=== PATIENT | male | born 1950 | race Caucasian/White ===

== ENCOUNTER → 2016-09-09 | Outpatient (CLI) | payer OTHER ==
[~2016-09-09] MED LIST: ALEN70TA4 PO; ASCO500T3 PO; ASPI81TA28 PO; BUPR-83 PO; BUSP5TAB59 PO; CITA40TA12 PO; FNTTP50 TD; GABA300C19 PO; GDN60 PO; GINK40TA3 PO; HYDROCODONE APAP PO; MAGN400T24 PO; MELO15TA4 PO; METO50TA16 PO; MISC1CAP60 PO; MULT-845 PO; PANT1TAB48 PO; TEMA-79 PO; TRAZ50TA35 PO; WARF-246 PO
[2016-09-09 17:18] LABS: BASO % 0.2 %; BASO ABS # 0.02 K/uL (0-0.2); COMPLETE YES; EOS % 0.9 %; HEMATOCRIT 38.3 % (42-52); IG% 0.2 %; LYMPH % 11.1 %; LYMPH ABS # 1.01 K/uL (1.2-3.4); MEAN CORPUSCULAR HEMOGLOBIN 27.2 pg (25-34); MEAN CORPUSCULAR HGB CONC 32.4 g/dl (32-36); MONO % 7.3 %; NEUT % 80.3 %; PLATELET COUNT 334 K/uL (130-400); RED BLOOD COUNT 4.56 M/uL (4.7-6.1); WHITE BLOOD COUNT 9.14 K/uL (4.8-10.8)
[2016-09-09 19:46] LABS: ALKALINE PHOSPHATASE 111 U/L (45-117); ALT/SGPT 33 U/L (12-78); AST/SGOT 25 U/L (15-37); BLOOD UREA NITROGEN 24 mg/dl (7-18); BUN/CREATININE RATIO 17.3 (10-20); CALCIUM 8.9 mg/dl (8.5-10.1); CARBON DIOXIDE 25 mmol/L (21-32); CHLORIDE 107 mmol/L (98-107); GLUCOSE 91 mg/dl (70-99); POTASSIUM 4.6 mmol/L (3.5-5.1); SODIUM 141 mmol/L (136-145); URIC ACID 4.4 mg/dl (2.6-7.2)
[2016-09-09 20:00] LABS: RHEUMATOID FACTOR < 10.0 U/mL (0-15)
[2016-09-09 21:13] LABS: LYME DISEASE AB IGG NEG (NEG); LYME DISEASE AB IGM NEG (NEG)
--- NOTE | 2016-09-14 10:59 | CODING QUERY MEDICAL NECESSITY ---
SUPPORTING DIAGNOSIS NEEDED A supporting diagnosis is required for the test/procedure performed on this patient in order for us to be reimbursed by the patient's insurance. Please provide a supporting diagnosis for the following test/procedure listed below next to the test name along with your signature. *If there is no additional diagnosis for this patient that would support the following test/procedure please document that below next to the test/procedure. Test(s)/Procedure(s) that require a supporting diagnosis: * VIT D 25 HYDROXY DIAGNOSIS: * DOS: 09/09/16 Provider Signature: Date: Thank you Shannon Jacob [facility] Information Management Once completed, please kindly fax back to [phone] For questions please call [phone]
== END | disposition home or self-care (01) ==
LOC: C.LABPVFM 11:35
PROVIDERS: ATTEND Family Medicine
DX: M12.9 Arthropathy, unspecified (principal); M86.60 Other chronic osteomyelitis, unspecified site; M85.80 Other specified disorders of bone density and structure, unspecified site

== ENCOUNTER → 2016-10-01 | Outpatient (CLI) | payer OTHER ==
--- NOTE | 2016-10-01 16:26 | DIAGNOSTIC IMAGING REPORT ---
CHEST 2 VIEWS ROUTINE CLINICAL HISTORY: R06.02 dyspnea COMPARISON STUDY: 01/23/2015 FINDINGS: Right basilar infiltrate combined with a small right effusion. Lungs otherwise appear clear. No evidence for cardiac enlargement. IMPRESSION: A small right effusion combined with a small right basilar infiltrate. Electronically signed by: Austin Rosales M.D. 10/01/2016 4:25 PM Dictated Date/Time: 10/01/2016 4:24 PM
== END | disposition home or self-care (01) ==
LOC: C.RADPV 15:39
PROVIDERS: ATTEND Internal Medicine Cardiovascular Disease
DX: R06.02 Shortness of breath (principal); J90 Pleural effusion, not elsewhere classified; R91.8 Other nonspecific abnormal finding of lung field

== ENCOUNTER → 2017-09-08 | Outpatient (CLI) | payer OTHER ==
[~2017-09-08] MED LIST changes: +GABA-1218 PO; -GABA300C19 PO; +PANT1TAB3 PO; -PANT1TAB48 PO
--- NOTE | 2017-09-08 09:29 | DIAGNOSTIC IMAGING REPORT ---
CT SCAN OF THE BRAIN WITHOUT IV CONTRAST CLINICAL HISTORY: Post concussion syndrome. COMPARISON STUDY: No priors. TECHNIQUE: Unenhanced axial CT scan of the brain is performed from the vertex to the skull base. A dose lowering technique was utilized adhering to the principles of ALARA. CT DOSE: 690.05 mGycm FINDINGS: Brain parenchyma: There are age-related involutional changes noting mild subcortical and periventricular microangiopathic change. There is no hemorrhage, mass effect, or evidence of acute territorial ischemia by CT criteria. Dorman-white matter is preserved. No extra-axial fluid collection is seen. Ventricles, sulci, cisterns: Prominent secondary to involutional change. Intracranial vasculature: There is atherosclerotic calcification of the cavernous carotid and vertebral arteries. Calvarium: Unremarkable. Sinuses and mastoids: Trace mucosal thickening is seen within the right sphenoid sinus. The remaining visualized paranasal sinuses are clear. There is trace right mastoid effusion. The left mastoid air cells are well pneumatized. Orbits: The bony orbits are grossly intact. IMPRESSION: There is no hemorrhage, mass effect, or evidence of acute territorial ischemia by CT criteria. Electronically signed by: Shade Guerin M.D. 09/08/2017 9:28 AM Dictated Date/Time: 09/08/2017 9:26 AM
== END | disposition home or self-care (01) ==
LOC: C.CTS 09:17
PROVIDERS: ATTEND Family Medicine
DX: F07.81 Postconcussional syndrome (principal)

== ENCOUNTER → 2017-12-14 | Outpatient (CLI) | payer OTHER ==
[~2017-12-14] MED LIST changes: +MELO-84 PO; -MELO15TA4 PO
--- NOTE | 2017-12-14 08:54 | DIAGNOSTIC IMAGING REPORT ---
R TOE(S) MIN 2 VIEWS HISTORY: 67 years-old Male CONTUSION OF TOE, RIGHT acute right third toe pain status post contusion. COMPARISON: None available TECHNIQUE: 3 views of the right third toe FINDINGS: Bones appear mildly demineralized. Mild degenerative changes of the metatarsophalangeal and interphalangeal joints. Mild soft tissue swelling of the third digit. There is a suggested acute nondisplaced transverse fracture of the third middle phalanx with mild cortical offset. No dislocation. There is a 1 mm bone fragment adjacent to the dorsal aspect of the third DIP joint which appears to demonstrate corticated margins. Peripheral vascular disease. IMPRESSION: 1. Mild soft tissue swelling of the third digit with suggested acute nondisplaced fracture of the third middle phalanx. Adjacent 1 mm corticated bone fragment suggests fragmented osteophyte or remote avulsion fracture. 2. Mild degenerative changes. 3. Peripheral vascular disease. The above report was generated using voice recognition software. It may contain grammatical, syntax or spelling errors. Electronically signed by: Kar Ford M.D. 12/14/2017 8:52 AM Dictated Date/Time: 12/14/2017 8:49 AM
== END | disposition home or self-care (01) ==
LOC: C.RADPV 08:31
PROVIDERS: ATTEND Family Medicine
DX: S90.121A Contusion of right lesser toe(s) without damage to nail, initial encounter (principal); X58.XXXA Exposure to other specified factors, initial encounter; M24.074 Loose body in right toe joint(s)

== ENCOUNTER → 2017-12-21 | Outpatient (CLI) | payer OTHER ==
--- NOTE | 2017-12-21 11:22 | DIAGNOSTIC IMAGING REPORT ---
ABDOMINAL ULTRASOUND, RIGHT UPPER QUADRANT HISTORY: R10.813 Abdominal tenderness, RLQ (right lower quadrant). COMPARISON: None. FINDINGS: Pancreas: The pancreatic tail is obscured by overlying bowel gas. The remaining portions of the pancreas are within normal limits. Liver: Unremarkable. Gallbladder: There are suggestion of a 9 mm stone at the neck of the gallbladder. This is nonmobile. Trace sludge within the gallbladder. No gallbladder wall thickening at this time. CBD: 8 mm. Right kidney: No hydronephrosis. A 5 mm stone within the kidney. IMPRESSION: 1. Possible 9 mm stone at the neck of the gallbladder. This may be impacted. Follow-up nuclear medicine HIDA scan can be used for further evaluation to exclude a developing acute cholecystitis. No gallbladder wall thickening at this time. 2. Right-sided nephrolithiasis. No hydronephrosis. 3. The common bile duct measures up to 8 mm which is abnormal. Electronically signed by: Krzysztof Tang M.D. 12/21/2017 11:21 AM Dictated Date/Time: 12/21/2017 11:17 AM
== END | disposition home or self-care (01) ==
LOC: C.ULTR 10:28
PROVIDERS: ATTEND Family Medicine
DX: R10.813 Right lower quadrant abdominal tenderness (principal); N20.0 Calculus of kidney

== ENCOUNTER 2019-07-03 07:12 | Inpatient (IN) ==
--- NOTE | 2019-06-13 08:44 | PAT Medication Instructions ---
Medication Instructions Date of Service June 13, 2019 Home Medications Medication Instructions Recorded sucralfate [Carafate] 1 gm PO ACHS #40 tab 01/25/19 alendronate 70 mg PO WK ascorbic acid (vitamin C) [Vitamin C] 500 mg PO DAILY bupropion HCl 100 mg PO QAM buspirone 5 mg PO TID calcium carbonate [Calcium 500] 500 mg PO QPM citalopram 40 mg PO QAM gabapentin 400 mg PO TID hydrocodone-acetaminophen 1 tab PO TID magnesium oxide 400 mg PO QPM pantoprazole 40 mg PO HS saw palmetto 1,000 mg PO QAM sulfamethoxazole-trimethoprim [Bactrim DS] 1 tab PO Q12H tamsulosin [Flomax] 0.4 mg PO QPM trazodone 50 mg PO HS ziprasidone HCl 80 mg PO BID sucralfate [Carafate] 1 gm PO ACHS cyanocobalamin (vitamin B-12) [Vitamin B-12] 2,500 mcg SUBLINGUAL DAILY Glaucoma Eye Drops 1 drp OPB UD aspirin [Aspirin Low Dose] 81 mg PO HS chlorzoxazone 1 tab PO TID Continue as directed alendronate 70 mg PO WK sulfamethoxazole-trimethoprim [Bactrim DS] 1 tab PO Q12H Glaucoma Eye Drops 1 drp OPB UD ASK your prescriber and surgeon aspirin [Aspirin Low Dose] 81 mg PO HS STOP taking 2 weeks before surgery (or as soon as possible if surgery is within 2 weeks) saw palmetto 1,000 mg PO QAM DO NOT take the morning of surgery ascorbic acid (vitamin C) [Vitamin C] 500 mg PO DAILY sucralfate [Carafate] 1 gm PO ACHS cyanocobalamin (vitamin B-12) [Vitamin B-12] 2,500 mcg SUBLINGUAL DAILY chlorzoxazone 1 tab PO TID Take morning of surgery With a small sip of water, OTHERWISE NOTHING TO EAT OR DRINK AFTER MIDNIGHT: bupropion HCl 100 mg PO QAM buspirone 5 mg PO TID citalopram 40 mg PO QAM gabapentin 400 mg PO TID hydrocodone-acetaminophen 1 tab PO TID (okay to take up to 4 hours prior to surgery if needed) ziprasidone HCl 80 mg PO BID Take evening before surgery buspirone 5 mg PO TID calcium carbonate [Calcium 500] 500 mg PO QPM gabapentin 400 mg PO TID hydrocodone-acetaminophen 1 tab PO TID magnesium oxide 400 mg PO QPM pantoprazole 40 mg PO HS tamsulosin [Flomax] 0.4 mg PO QPM trazodone 50 mg PO HS ziprasidone HCl 80 mg PO BID sucralfate [Carafate] 1 gm PO ACHS chlorzoxazone 1 tab PO TID Other Notes If you have any questions please call us at [phone] or [phone] or [phone] or [phone]
--- NOTE | 2019-06-13 10:30 | Anesthesiology Consultation ---
Date of Service June 13, 2019 Assessment & Plan (1) Encounter for pre-operative examination: Chart Review Chart Review: Pending: Refer to Additional Notes / Consult section (pending preop testing (labs, EKG, CXR)) and Patient seen in Pre Admission Testing Teaching & Discussion Pre-Anesthesia Teaching/Discussion Notes: Instructed NPO after midnight before surgery,except medications with 15 cc of water. Medication instructions provid ed according to the PAT guidelines. History Surgery Operation Date: 07/03/19 07:15 Proposed Procedures p Left Reverse Total Shoulder Arthroplasty - Yoel Ding DO Height/Weight Height: 6 ft Weight: 78.9 kg Allergies Allergy/AdvReac Type Severity Reaction Status Date / Time No Known Allergies Allergy Unknown Verified 06/13/19 07:10 Medications Home Medications Medication Instructions Recorded Confirmed Last Taken alendronate 70 mg PO WK 01/10/19 06/13/19 01/24/19 ascorbic acid (vitamin C) [Vitamin 500 mg PO DAILY 01/10/19 06/13/19 02/17/19 C] bupropion HCl 100 mg PO QAM 01/10/19 06/13/19 02/17/19 buspirone 5 mg PO TID 01/10/19 06/13/19 02/17/19 calcium carbonate [Calcium 500] 500 mg PO QPM 01/10/19 06/13/19 02/16/19 citalopram 40 mg PO QAM 01/10/19 06/13/19 02/17/19 gabapentin 400 mg PO TID 01/10/19 06/13/19 02/17/19 hydrocodone-acetaminophen 1 tab PO TID 01/10/19 06/13/19 02/17/19 magnesium oxide 400 mg PO QPM 01/10/19 06/13/19 02/16/19 pantoprazole 40 mg PO HS 01/10/19 06/13/19 02/16/19 saw palmetto 1,000 mg PO QAM 01/10/19 06/13/19 02/17/19 sulfamethoxazole-trimethoprim 1 tab PO Q12H 01/10/19 06/13/19 02/17/19 [Bactrim DS] tamsulosin [Flomax] 0.4 mg PO QPM 01/10/19 06/13/19 02/16/19 trazodone 50 mg PO HS 01/10/19 06/13/19 02/16/19 ziprasidone HCl 80 mg PO BID 01/10/19 06/13/19 02/17/19 sucralfate [Carafate] 1 gm PO ACHS #40 tab 01/25/19 06/13/19 02/16/19 cyanocobalamin (vitamin B-12) 2,500 mcg SUBLINGUAL DAILY 02/17/19 06/13/19 Unknown [Vitamin B-12] aspirin [Aspirin Low Dose] 81 mg PO HS 06/13/19 06/13/19 Unknown brimonidine 1 drp OPHTHALMIC (EYE) TID 06/13/19 06/13/19 Unknown chlorzoxazone 750 mg PO TID 06/13/19 06/13/19 Unknown dorzolamide 1 drp OPHTHALMIC (EYE) TID 06/13/19 06/13/19 Unknown latanoprost 1 drp OPHTHALMIC (EYE) PM 06/13/19 06/13/19 Unknown Past Medical History Medical History Anxiety Chronic back pain Depression GERD (gastroesophageal reflux disease) controlled Glaucoma Hearing deficit hearing aid (left) History of blood transfusion post-op (2009) Hx MRSA infection left hip ~2009- on Bactrim BID as preventative maintenance (OR/infection c ontrol made aware) Hyperlipidemia Hypertension hx per patient Leg length discrepancy RLE > LLE s/p multiple left hip revisions (per patient, missing hip joint) due to complications from hip surgery/revisions/MRSA infection- on chronic preventative Bactrim-- uses shoe with elevated heel/crutches Osteoarthritis Peptic ulcer disease 12/2018 Restless leg syndrome Transient ischemic attack (TIA) x1 (~2014) Exercise / Class Metabolic Activity III < 4 Walking/Shop/Light housework (uses crutches for ambulation) Past Family History Family History Other No pertinent family history Past Surgical History Surgical History History of total hip replacement H/O eye surgery DRAINAGE TUBES RT/LEFT EYE FOR GLAUCOMA History of adenoidectomy History of cataract surgery right History of colonoscopy History of esophagogastroduodenoscopy (EGD) History of hip surgery LEFT HIP SURGERY/REVISIONS (TOTAL OF 9 SURGERIES) History of laminectomy L3-L5 laminectomy: 05/12/15: Grade view 1, MAC#3, ETT 8.0 (atraumatic DL x 1) at [facility] History of tonsillectomy History of tooth extraction Past Anesthesia History No Hx of Anesthesia Complications and No Family Hx of Anesthesia Complications History of PONV No Hx of PONV and No Hx of Motion Sickness Social History Smoking Status: Never smoker tobacco type: cigarettes and smokeless tobacco Do You Dip or Chew Tobacco: No (Quit 12/2018) Smoking End Date: Quit 1999; hx 1.5PPD x 18 years Hx Alcohol Use: Yes Alcohol type: beer alcohol intake frequency: a few times a month Hx Substance Use: No (hx medical marijuana card-does not currently use, last use 1 yr ago) substance use type: does not use Review of Systems Reflux controlled. Patient denies chest pain, shortness of breath, cough, wheezing, palpitations. Physical Exam Vital Signs VITALS BP 118/79 P 62 TEMP 97.7 SP02 96%RA RESP 18 PHYSICAL Full neck and c-spine range of motion. Full TMJ range of motion. TMD 3 finger breaths Mallampati Score 3 Dentition: full dentures upper/lower; edentulous Lungs: faint lower lung base crackles Cardiac: regular rate and rhythm, no murmurs noted Carotid arteries: negative bruit Extremities: no edema Trimmed frazier Testing Echocardiogram Date: 09/29/14 EF >70%. Mild AV sclerosis. Normal LV size, thickness and systolic function. No significant LAD.
--- NOTE | 2019-06-13 11:23 | XRay Report ---
XR chest Pre-admission PA/Lat CLINICAL HISTORY: 68 years-old Male presenting with preoperative evaluation. TECHNIQUE: PA and lateral views of the chest were obtained. COMPARISON: 01/05/2019. FINDINGS: Cardiomediastinal silhouette normal. Resolution of prior right pleural effusion. Lungs and pleural sp aces now clear. Degenerative changes of the thoracic spine. Upper abdomen normal. IMPRESSION: 1. No acute cardiopulmonary disease. Electronically signed by: Jose Ramon Villatoro M.D. 06/13/2019 11:21 AM
[2019-06-13 12:32] LABS: Partial Thromboplastin Ratio 1.1; Partial Thromboplastin Time 30.5 Seconds (21.0-31.0); Prothrombin Time 10.3 Seconds (9.0-12.0)
--- NOTE | 2019-07-02 20:06 | History & Physical Report ---
Date of Service July 02, 2019 Assessment & Plan (1) Rotator cuff arthropathy of left shoulder: We will proceed with a left reverse shoulder arthroplasty. Postoperatively he will be placed in a sling and kept overnight for postoperative medical management. He plans to use energy physical therapy upon discharge. Present on Admission?: Yes History of Present Illness Chief Complaint: Rotator cuff arthropathy of the left shoulder Primary Care Provider: Shruthi Michelle MD Brennan is a pleasant 68-year-old male who is been dealing with chronic increasing left shoulder pain. The pain has become unbearable. MRI of his shoulder shows a chronic retracted rotator cuff tear. He does ambulate with a crutch. I have attempted numerous injections in the shoulder. Unfortunately injections no longer help. He cannot live with the shoulder the way it is. After failing extensive conservative treatment, and after discussions in the office, he has elected proceed with a left reverse shoulder arthroplasty. Allergies Allergy/AdvReac Type Severity Reaction Status Date / Time No Known Allergies Allergy Unknown Verified 06/22/19 13:37 Home Medications Home Medications Medication Instructions Recorded Confirmed Type alendronate 70 mg PO WK 01/10/19 07/02/19 History ascorbic acid (vitamin C) [Vitamin 500 mg PO DAILY 01/10/19 07/02/19 History C] bupropion HCl 100 mg PO QAM 01/10/19 07/02/19 History buspirone 5 mg PO TID 01/10/19 07/02/19 History calcium carbonate [Calcium 500] 500 mg PO QPM 01/10/19 07/02/19 History citalopram 40 mg PO QAM 01/10/19 07/02/19 History gabapentin 400 mg PO TID 01/10/19 07/02/19 History hydrocodone-acetaminophen 1 tab PO TID PRN 01/10/19 07/02/19 History magnesium oxide 400 mg PO QPM 01/10/19 07/02/19 History pantoprazole 40 mg PO HS 01/10/19 07/02/19 History saw palmetto 1,000 mg PO QAM 01/10/19 07/02/19 History sulfamethoxazole-trimethoprim 1 tab PO Q12H 01/10/19 07/02/19 History [Bactrim DS] tamsulosin [Flomax] 0.4 mg PO QPM 01/10/19 07/02/19 History trazodone 50 mg PO HS 01/10/19 07/02/19 History ziprasidone HCl 80 mg PO BID 01/10/19 07/02/19 History sucralfate [Carafate] 1 gm PO ACHS #40 tab 01/25/19 07/02/19 Rx cyanocobalamin (vitamin B-12) 2,500 mcg SUBLINGUAL DAILY 02/17/19 07/02/19 History [Vitamin B-12] aspirin [Aspirin Low Dose] 81 mg PO HS 06/13/19 07/02/19 History brimonidine 1 drp OPHTHALMIC (EYE) TID 06/13/19 07/02/19 History chlorzoxazone 750 mg PO TID 06/13/19 07/02/19 History dorzolamide 1 drp OPHTHALMIC (EYE) TID 06/13/19 07/02/19 History latanoprost 1 drp OPHTHALMIC (EYE) PM 06/13/19 07/02/19 History ferrous sulfate [Iron (ferrous 325 mg PO BID 06/14/19 07/02/19 History sulfate)] erythromycin 1 appln OP Q6H 14 Days #3.5 gm 06/26/19 07/02/19 Rx Past Med/Surg History Medical History Anxiety Chronic back pain Depression GERD (gastroesophageal reflux disease) controlled Glaucoma Hearing deficit hearing aid (left) History of blood transfusion post-op (2009) Hx MRSA infection left hip ~2009- on Bactrim BID as preventative maintenance (OR/infection control made aware) Hyperlipidemia Hypertension hx per patient Leg length discrepancy RLE > LLE s/p multiple left hip revisions (per patient, missing hip joint) due to complications from hip surgery/revisions/MRSA infection- on chronic preventative Bactrim-- uses shoe with elevated heel/crutches Osteoarthritis Peptic ulcer disease 12/2018 Restless leg syndrome Transient ischemic attack (TIA) x1 (~2014) Surgical History History of total hip replacement H/O eye surgery DRAINAGE TUBES RT/LEFT EYE FOR GLAUCOMA History of adenoidectomy History of cataract surgery right History of colonoscopy History of esophagogastroduodenoscopy (EGD) History of hip surgery LEFT HIP SURGERY/REVISIONS (TOTAL OF 9 SURGERIES) History of laminectomy L3-L5 laminectomy: 05/12/15: Grade view 1, MAC#3, ETT 8.0 (atraumatic DL x 1) at [facility] History of tonsillectomy History of tooth extraction Family History Other No pertinent family history Social History Preferred Language: Icelandic Communication Ability: Effective Clinical Admissions Manager Required: No Beliefs That Will Affect Care: None Current Living Situation: Spouse Feels Safe at Home: Yes Smoking Status: Never smoker Tobacco Type: cigarettes and smokeless tobacco ; Second Hand Exposure: No ; Hx Alcohol Use: Yes Alcohol type: beer Hx Substance Use: No (hx medical marijuana card-does not currently use, last use 1 yr ago) Review of Systems All systems reviewed & are unremarkable except as noted in HPI & below Physical Exam Constitutional: WD/WN, vitals as above Eyes: PERRL, conjunctivae normal, anicteric sclerae ENMT: external ear and nose normal, oropharynx normal Neck: trachea midline, no thyromegaly Respiratory: normal respiratory effort Cardiovascular: RRR, no murmur, no edema Gastrointestinal (Abdomen): normal bowel sounds, soft, nontender, no hepatosplenomegaly Musculoskeletal: Physical examination of the left shoulder reveals decreased range of motion and significant weakness. There is tenderness palpation along the anterior glenohumeral joint line. The right upper extremity is neurovascularly intact. Psychiatric: A+Ox3, euthymic affect Results & Data Diagnostic Findings Radiographs of the left shoulder show some signs of osteoarthritis with blunting of the greater tuberosity and some superior migration of the humeral head on the glenoid.
[~2019-07-03 07:12] MED LIST changes: +ACETAMINOPHEN 500 MG TAB PO SCH; -ALEN70TA4 PO; -ASCO500T3 PO; -ASPI81TA28 PO; +BUPIVACAINE 0.5 % 5 MG/1 ML PF 10ML VIAL ONE; -BUPR-83 PO; -BUSP5TAB59 PO; +CEFAZOLIN 2000MG 2,000 MG/15 ML SYR IV SCH; -CITA40TA12 PO; +FAMOTIDINE 20 MG TAB PO SCH; -FNTTP50 TD; -GABA-1218 PO; +GABAPENTIN 300 MG CAP PO SCH; -GDN60 PO; -GINK40TA3 PO; -HYDROCODONE APAP PO; +LR 15ML/HR IV SCH; +LR 60ML/HR IV SCH; -MAGN400T24 PO; -MELO-84 PO; -METO50TA16 PO; -MISC1CAP60 PO; -MULT-845 PO; -PANT1TAB3 PO; +ROPIVACAINE 0.5% HCL/PF 150 MG, BUPIVACAINE 0.5% MPF 30 ML, EPINEPHrine 30MG/30ML (OR U... INSTIL SCH; -TEMA-79 PO; +TRANEXAMIC ACID 1,000 MG **IV Intra-op IV SCH; +TRANEXAMIC ACID 1,000 MG **IV Pre-op IV SCH; -TRAZ50TA35 PO; -WARF-246 PO
[2019-07-03] MEDS ORDERED: GLYCOPYRROLATE 0.2 MG/ML VIAL ONE ×2 (08:28→11:29)
[2019-07-03] MEDS ORDERED: MIDAZOLAM HCL 1 MG/ML 2ML VIAL ONE (08:28)
[2019-07-03] MEDS ORDERED: PROPOFOL IV EMULSION 10 MG/ML 20 ML VIAL IV ONE (08:28)
[2019-07-03] MEDS ORDERED: ROCURONIUM BROMIDE 10 MG/ML 5 ML VIAL ONE (08:28)
[2019-07-03] MEDS ORDERED: ONDANSETRON INJ 2 MG/ML 2 ML VIAL ONE (08:28)
[2019-07-03] MEDS ORDERED: fentaNYL citrate 100 MCG/2 ML VIAL ONE (08:28)
[2019-07-03] MEDS ORDERED: NEOSTIGMINE METHYLSULFATE 5 MG/5 ML SYR ONE (08:28)
[2019-07-03] MEDS ORDERED: LIDOCAINE HCL 2% 2 ML VIAL/AMP(20MG/ML) INFIL ONE (08:28)
--- NOTE | 2019-07-03 08:47 | Anesthesiology Consultation ---
Date of Service July 03, 2019 Assessment & Plan Chart Review Chart Review: Acceptable Risk for Surgery Consults Requested none History Surgery Operation Date: 07/03/19 09:25 Proposed Procedures p Left Reverse Total Shoulder Arthroplasty - Yoel Ding DO Height/Weight Height: 6 ft Weight: 79.832 kg Allergies Allergy/AdvReac Type Severity Reaction Status Date / Time No Known Allergies Allergy Unknown Verified 07/03/19 07:49 Medications Home Medications Medication Instructions Recorded Confirmed Last Taken alendronate 70 mg PO WK 01/10/19 07/03/19 07/02/19 ascorbic acid (vitamin C) [Vitamin 500 mg PO DAILY 01/10/19 07/03/19 07/03/19 03:00 C] bupropion HCl 100 mg PO QAM 01/10/19 07/03/19 07/03/19 03:00 buspirone 5 mg PO TID 01/10/19 07/03/19 07/03/19 03:00 calcium carbonate [Calcium 500] 500 mg PO QPM 01/10/19 07/03/19 07/02/19 23:45 citalopram 40 mg PO QAM 01/10/19 07/03/19 07/03/19 03:00 gabapentin 400 mg PO BID 01/10/19 07/03/19 07/02/19 16:00 hydrocodone-acetaminophen 1 tab PO TID PRN 01/10/19 07/03/19 07/03/19 03:00 magnesium oxide 400 mg PO QPM 01/10/19 07/03/19 07/02/19 23:45 pantoprazole 40 mg PO HS 01/10/19 07/03/19 07/02/19 23:45 saw palmetto 1,000 mg PO QAM 01/10/19 07/03/19 07/03/19 03:00 sulfamethoxazole-trimethoprim 1 tab PO Q12H 01/10/19 07/03/19 07/03/19 03:00 [Bactrim DS] tamsulosin [Flomax] 0.4 mg PO QPM 01/10/19 07/03/19 07/02/19 23:45 trazodone 50 mg PO HS 01/10/19 07/03/19 07/02/19 23:45 ziprasidone HCl 80 mg PO BID 0507/03/19 07/03/19 03:00 cyanocobalamin (vitamin B-12) 2,500 mcg SUBLINGUAL DAILY 02/17/19 07/03/19 07/02/19 [Vitamin B-12] aspirin [Aspirin Low Dose] 81 mg PO HS 06/13/19 07/03/19 07/02/19 23:45 brimonidine 1 drp OPHTHALMIC (EYE) TID 06/13/19 07/03/19 07/03/19 03:00 chlorzoxazone 750 mg PO TID 06/13/19 07/03/19 07/03/19 03:00 dorzolamide 1 drp OPHTHALMIC (EYE) TID 06/13/19 07/03/19 07/03/19 03:00 latanoprost 1 drp OPHTHALMIC (EYE) PM 06/13/19 07/03/19 07/02/19 23:45 ferrous sulfate [Iron (ferrous 325 mg PO BID 06/14/19 07/03/19 07/03/19 03:00 sulfate)] erythromycin 1 appln OP Q6H 14 Days #3.5 gm 06/26/19 07/03/19 07/03/19 sucralfate [Carafate] 1 gm PO HS 07/03/19 07/03/19 07/02/19 23:45 Active Medications Generic Name Dose Route Start Last Admin Trade Name Freq PRN Reason Stop Dose Admin Acetaminophen 1,000 mg 07/03/19 06:00 07/03/19 08:29 Tylenol PO 07/03/19 18:00 1,000 mg PREOP GUILLERMO Administration Famotidine 20 mg 07/03/19 06:00 07/03/19 08:29 Pepcid PO 07/03/19 18:00 20 mg PREOP GUILLERMO Administration Gabapentin 300 mg 07/03/19 06:00 07/03/19 08:29 Neurontin PO 07/03/19 18:00 300 mg PREOP GUILLERMO Administration Lactated Ringer's 1,000 mls @ 15 mls/hr 07/03/19 06:00 07/03/19 08:23 Lr IV 07/04/19 05:59 15 mls/hr .Q24H GUILLERMO Administration Lactated Ringer's 1,000 mls @ 60 mls/hr 07/03/19 06:00 07/03/19 08:24 Lr IV 07/03/19 22:39 Not Given .[id number] GUILLERMO NPO Date Last Intake of Fluids: 07/02/19 Time Last Intake of Fluids: 23:45 Last Intake of Fluids Comment: sip of water today at 0300 with pills Date Last Intake of Solids: 07/02/19 Time Last Intake of Solids: 18:00 Past Medical History Medical History Hearing deficit hearing aid (left) Hx MRSA infection left hip ~2009- on Bactrim BID as preventative maintenance (OR/infection control made aware) Peptic ulcer disease 12/2018 Anxiety Chronic back pain Depression GERD (gastroesophageal reflux disease) controlled Glaucoma History of blood transfusion post-op (2009) Hyperlipidemia Hypertension hx per patient Leg length discrepancy RLE > LLE s/p multiple left hip revisions (per patient, missing hip joint) due to complications from hip surgery/revisions/MRSA infection- on chronic preventative Bactrim-- uses shoe with elevated heel/crutches Osteoarthritis Restless leg syndrome Transient ischemic attack (TIA) x1 (~2014) Past Family History Family History Other No pertinent family history Past Surgical History Surgical History History of total hip replacement History of cataract surgery right History of esophagogastroduodenoscopy (EGD) H/O eye surgery DRAINAGE TUBES RT/LEFT EYE FOR GLAUCOMA History of adenoidectomy History of colonoscopy History of hip surgery LEFT HIP SURGERY/REVISIONS (TOTAL OF 9 SURGERIES) History of laminectomy L3-L5 laminectomy: 05/12/15: Grade view 1, MAC#3, ETT 8.0 (atraumatic DL x 1) at [facility] History of tonsillectomy History of tooth extraction Social History Smoking Status: Never smoker tobacco type: cigarettes and smokeless tobacco Do You Dip or Chew Tobacco: No (Quit 12/2018) Smoking End Date: Quit 1999; hx 1.5PPD x 18 years Hx Alcohol Use: Yes Alcohol type: beer alcohol intake frequency: a few times a month Hx Substance Use: No (hx medical marijuana card-does not currently use, last use 1 yr ago) substance use type: does not use Physical Exam Vital Signs Last Vital Signs Temp 36.8 C 07/03/19 07:35 Pulse 60 07/03/19 07:35 Resp 18 07/03/19 07:35 BP 99/63 L 07/03/19 07:35 Pulse Ox 96 07/03/19 07:35 Testing Laboratory Results PT 10.3 Seconds (9.0-12.0) 06/13/19 10:49 INR 1.0 (0.9-1.1) 06/13/19 10:49 APTT 30.5 Seconds (21.0-31.0) 06/13/19 10:49 Blood Type O Positive 06/13/19 10:49 Antibody Screen NEGATIVE 06/13/19 10:49
[2019-07-03] MEDS ORDERED: HYDROmorphone INJ 2 MG/ML SYR/VIAL IV PRN (08:48)
[2019-07-03] MEDS ORDERED: METOCLOPRAMIDE HCL INJ 5 MG/ML 2 ML VIAL IV PRN ×2 (08:48→12:51)
[2019-07-03] MEDS ORDERED: ATROPINE SULFATE 0.1 MG/ML 10ML SYR IV PRN (08:48)
[2019-07-03] MEDS ORDERED: fentaNYL citrate 100 MCG/2 ML VIAL IV PRN (08:48)
[2019-07-03] MEDS ORDERED: PROMETHAZINE HCL 12.5 MG in SODIUM CHLORIDE 0.9% 50 ML IV PRN (08:48)
[2019-07-03] MEDS ORDERED: ONDANSETRON INJ 2 MG/ML 2 ML VIAL IV PRN ×2 (08:48→12:51)
[2019-07-03] MEDS ORDERED: DEXAMETHASONE SOD INJ 4 MG/ML VIAL IV PRN (08:48)
[2019-07-03] MEDS ORDERED: ePHEDrine sulfate 50 MG/ML AMP IV PRN (08:48)
--- NOTE | 2019-07-03 08:48 | History & Physical Bridge Note ---
Date of Service July 03, 2019 History & Physical Bridge Note I have examined the patient, reviewed the History & Physical and in the interval since the performance of the History & Physical I have noted the following changes of clinical significance: no changes noted
[2019-07-03] MEDS ORDERED: ORTHO JOINT ANESTHETIC ONE (09:25)
[2019-07-03] MEDS ORDERED: DEXAMETHASONE SOD INJ 4 MG/ML VIAL ONE (11:08)
--- NOTE | 2019-07-03 11:19 | Operative Report ---
Post Operative Report Pre & Post Diagnosis Operation Date: 07/03/19 09:25 Pre-Op Diagnosis: Left Shoulder rotator cuff arthropathy Post-Op Diagnosis: Left Shoulder rotator cuff arthropathy I identified the patient and participated in the time-out.: Yes Procedure Operation Date: 07/03/19 09:25 Actual Procedures p Left Reverse Total Shoulder Arthroplasty(Left) - Yoel Ding DO Surgeon Yoel Ding DO Toolmaker Yoel Reyes PAC Estimated Blood Loss 100 Findings Consistent with Post-Op Diagnosis Specimens Left humeral head Complications none Disposition Disposition: Recovery Room Indications Brennan is a pleasant 68-year-old male who is been dealing with chronic increasing left shoulder pain. MRI and clinical examination were diagnostic for chronic retracted rotator cuff tear and cartilage delamination on the humeral head. After failing conservative treatment, he elected to proceed with a left reverse shoulder arthroplasty. Description of Procedure Implants used: I used a [employer] Comprehensive reverse total shoulder arthroplasty system with a size 16 press fit mini humeral stem, a standard humeral tray and a standard humeral bearing, a 28 mm baseplate with a 6.5 mm central screw and superior and inferior locking screws, and a size 40 mm eccentric glenosphere. The patient arrived at [facility] for the above procedure. There were seen in the preoperative holding area and the operative extremity was identified and signed. They were given a preoperative antibiotic and an interscalene nerve block. They were taken back to the operating room, laid on table in supine position, and put under general anesthesia. They were then put into the beachchair position. The shoulder was then prepped and draped in sterile fashion. A timeout was done and the patient and the operative extremity was properly identified. A deltopectoral approach was used. Dissection was taken down through the fascia and the deltoid was retracted laterally and the conjoined tendon was retracted medially. The anterior shoulder was exposed. The long head of the biceps tendon was tenodesed to the upper border of the pectoralis major. The subscapularis was then released off the lesser tuberosity with a centimeter of cuff tissue remaining. The inferior capsule was released and the humeral head was dislocated. A canal finding reamer was sent down the center of the humeral canal. Sequential reaming up to a size 16 reamer was done. Off that reamer, a proximal humeral resection guide was placed. The proximal humerus was resected at 135 of inclination and 25 of retroversion. Osteophytes were then removed and the glenoid was exposed. Time was spent doing a complete capsular and labral release. The glenoid guide was then placed in the inferior aspect of the glenoid. A 3.2 mm Steinmann pin was then placed into the glenoid vault at 10 of inclination. The glenoid baseplate was then reamed. The final size 28 mm baseplate was then impacted in the place. A 6.5 mm central screw was then placed followed by superior and inferior locking screws. A 36 mm eccentric glenoid sphere was then impacted into place. Surrounding soft tissues were then injected with 100 cc an orthopedic pain control cocktail. The proximal humerus was then exposed. Sequential broaching of the humerus up to a size 16 broach was done. Off that broach a standard humeral tray was trialed. The shoulder was then reduced, brought through a full range of motion and felt to be stable. The shoulder was then dislocated and the broach was removed. The final size 16 mini press-fit humeral stem was then impacted into place. A standard humeral bearing was then snapped onto a standard humeral tray and the ring-lock mechanism was engaged. The humeral tray was then impacted onto the humeral stem. The shoulder was once again reduced, brought through a full range of motion and felt to be stable. The subscapularis was then tenodesed back to the lesser tuberosity with transosseous FiberWire sutures and side to side sutures with the arm in 45 of external rotation. A dilute betadyne lavage was then done for 3 minutes. The joint was then irrigated with normal saline solution. Hemostasis was obtained. The skin was then closed with 2-0 Vicryl, 3-0V lock suture, and babatunde. A soft dressing and a regular arm sling was placed. The patient was then extubated and transferred to a hospital bed. They were taken to the postanesthesia care unit in stable condition. They tolerated the procedure well. I attest to the content of the Intraoperative Record and any orders documented therein. Any exceptions are noted below.
--- NOTE | 2019-07-03 12:22 | XRay Report ---
XR shoulder LT min 2V routine CLINICAL HISTORY: Post shoulder surgery COMPARISON: None. DISCUSSION: There are postsurgical changes of a reverse total left shoulder arthroplasty. There is ga s in the soft tissues consistent with surgery. There are overlying skin babatunde. There is no dislocat ion. IMPRESSION: Postsurgical changes of a reverse total left shoulder arthroplasty. Electronically signed by: Claudio Benitez M.D. 07/03/2019 12:21 PM
--- NOTE | 2019-07-03 12:32 | Anesthesiology Progress Note ---
Date of Service July 03, 2019 Anesthesia Post Procedure Vital Signs Vital Signs: Temp Pulse Pulse Resp BP Pulse Ox 07/03/19 12:20 57 L 16 108/64 98 07/03/19 12:10 61 18 109/63 99 07/03/19 12:00 62 19 107/66 99 07/03/19 11:52 36.2 C L 63 19 99/53 L 100 07/03/19 07:35 36.8 C 60 18 99/63 L 96 Pain Intensity Left Shoulder: Pain Intensity: 0 Transfer of Care Handoff Completed per policy Notes Mental Status: alert / awake / arousable and participated in evaluation Patient Amnestic to Procedure: Yes Nausea / Vomiting: adequately controlled Pain: adequately controlled Airway Patency, RR, SpO2: stable & adequate BP & HR: stable & adequate Hydration State: stable & adequate Anesthetic Complications: no major complications apparent
[2019-07-03] MEDS ORDERED: BISACODYL 10 MG SUPP PR PRN (12:51)
[2019-07-03] MEDS ORDERED: MAGNESIUM HYDROXIDE SUSP 30 ML UDC PO PRN (12:51)
[2019-07-03] MEDS ORDERED: HYDROmorphone INJ 0.5 MG/0.5 ML SYR IV PRN (12:51)
[2019-07-03] MEDS ORDERED: NALOXONE HCL 0.4 MG/1 ML VIAL/CARP IV PRN (12:51)
[2019-07-03] MEDS ORDERED: ERYTHROMYCIN OP OINT 1 GM PKT OP SCH (14:00)
[2019-07-03] MEDS ORDERED: BRIMONIDINE 0.1% OP SCH (14:00)
[2019-07-03] MEDS ORDERED: CHLORZOXAZONE 500 MG TAB PO SCH (14:00)
[2019-07-03] MEDS: KETOROLAC TROMETHAMINE 15 MG/ML VIAL IV SCH ×2 (14:20→19:10)
[2019-07-03] MEDS: ACETAMINOPHEN 500 MG TAB PO SCH ×2 (14:20→21:55)
[2019-07-03] MEDS: DORZOLAMIDE HCL 2% OPH SOLN 10 ML BTL OP SCH ×2 (14:24→21:59)
[2019-07-03] MEDS ORDERED: INFLUENZA VACCINE HIGH DOSE 65+ 0.5 ML SYR IM ONE (15:00)
[2019-07-03] MEDS ORDERED: INFLUENZA ADMINISTRATION CHARGE ONE (15:00)
[2019-07-03] MEDS: CEFAZOLIN 2000MG 2,000 MG/15 ML SYR IV SCH (19:11)
[2019-07-03] MEDS: SODIUM CHLORIDE 0.9% 1000ML 1,000 ML IV SCH (19:11)
[2019-07-03] MEDS: OXYCODONE HCL IR 5 MG TAB (IMMEDIATE RELEASE) PO PRN (19:11)
[2019-07-03] MEDS ORDERED: SENNA 8.6 MG TAB PO SCH (21:00)
[2019-07-03] MEDS ORDERED: PANTOprazole 40 MG TAB PO SCH (21:00)
[2019-07-03] MEDS ORDERED: PNEUMOCOCCAL ADMINISTRATION CHARGE ONE (21:00)
[2019-07-03] MEDS ORDERED: ASPIRIN 81 MG ECTAB PO SCH (21:00)
[2019-07-03] MEDS ORDERED: MAGNESIUM OXIDE 400 MG TAB PO SCH (21:00)
[2019-07-03] MEDS ORDERED: TAMSULOSIN HCL 0.4 MG CAP PO SCH (21:00)
[2019-07-03] MEDS ORDERED: LATANOPROST 0.005% OP SOLN 2.5 ML BTL OP SCH (21:00)
[2019-07-03] MEDS ORDERED: BRIMONIDINE TARTRATE (ALPHAGAN P) 5 ML DROPS OP SCH (21:00)
[2019-07-03] MEDS ORDERED: PNEUMOCOCCAL POLYSACCHARIDES 25 MCG/0.5 ML VIAL/SYR IM ONE (21:00)
[2019-07-03] MEDS: CHLORZOXAZONE 500 MG TAB PO PRN (21:54)
[2019-07-03] MEDS: ZIPRASIDONE HCL 80 MG CAP PO SCH (21:54)
[2019-07-03] MEDS: FERROUS SULFATE 325 MG TAB PO SCH (21:55)
[2019-07-03] MEDS: DOCUSATE SODIUM 100 MG CAP PO SCH (21:56)
[2019-07-03] MEDS: GABAPENTIN 400 MG CAP PO SCH (21:57)
[2019-07-03] MEDS: SULFAMETHOXAZOLE/TRIMETHOPRIM DS 800/160MG TAB PO SCH (21:57)
[2019-07-03] MEDS: BRIMONIDINE 0.2% OP SCH (21:58)
[2019-07-03] MEDS ORDERED: TRAZODONE HCL 50 MG TAB PO SCH (23:00)
[2019-07-04] MEDS: CEFAZOLIN 2000MG 2,000 MG/15 ML SYR IV SCH (01:07)
[2019-07-04] MEDS: KETOROLAC TROMETHAMINE 15 MG/ML VIAL IV SCH ×3 (01:08→14:20)
[2019-07-04] MEDS: SODIUM CHLORIDE 0.9% 1000ML 1,000 ML IV SCH (02:33)
[2019-07-04] MEDS: OXYCODONE HCL IR 5 MG TAB (IMMEDIATE RELEASE) PO PRN ×3 (02:52→12:46)
[2019-07-04] MEDS: ACETAMINOPHEN 500 MG TAB PO SCH ×2 (05:24→14:22)
[2019-07-04 05:28] LABS: Eosinophils # (auto) 0.01 K/uL (0-0.5); Eosinophils % (auto) 0.1 %; Hematocrit (blood only) 35.1 % (42-52); Hemoglobin 10.8 g/dL (14.0-18.0); Immature Granulocytes # (auto) 0.02 K/uL (0.00-0.02); Immature Granulocytes % (auto) 0.3 %; Lymphocytes # (auto) 0.78 K/uL (1.2-3.4); Lymphocytes % (auto) 10.8 %; Mean Corpuscular Hemoglobin 27.2 pg (25-34); Mean Corpuscular Hgb Conc 30.8 g/dL (32-36); Mean Corpuscular Volume 88.4 fL (80-100); Mean Platelet Volume 8.3 fL (7.4-10.4); Monocytes # (auto) 0.59 K/uL (0.11-0.59); Monocytes % (auto) 8.2 %; Neutrophils # (auto) 5.79 K/uL (1.4-6.5); Neutrophils % (auto) 80.6 %; Platelet Count 263 K/uL (130-400); RDW Coefficient of Variation 16.5 % (11.5-14.5); RDW Standard Deviation 54.2 fL (36.4-46.3); Red Blood Count 3.97 M/uL (4.7-6.1); White Blood Count 7.19 K/uL (4.8-10.8)
[2019-07-04 06:00] LABS: BUN Creatinine Ratio 18.6 (10-20); Calcium 8.3 mg/dl (8.5-10.1); Creatinine Clr Calc Pharmacy 62.6 ml/min; Est GFR (African American) 68.8; Est GFR (Non-African American) 59.4; Potassium 3.8 mmol/L (3.5-5.1)
--- NOTE | 2019-07-04 06:49 | Orthopedic Progress Note ---
Date of Service July 04, 2019 Assessment & Plan (1) Rotator cuff arthropathy of left shoulder: Overall is doing fairly well. He will be seen by physical therapy today for ambulation and range of motion exercises. He does ambulate with a crutch. There is some concerns about him falling if he is to return home. He is awaiting discharge to [facility]. He can be discharged later today if a bed is available. Present on Admission?: Yes Eran Amin was seen and examined at bedside this morning. Overall he is doing fairly well. Is not having too much pain in the left shoulder. He is happy with his progress and is no complaints. Physical Exam Musculoskeletal: On physical examination of his left shoulder, dressing is clean and dry. He is wearing a sling as instructed. His radial, median, and ulnar nerves are checked and intact at his wrist. His axillary nerve was not checked yet. Results & Data Vital Signs (Past 12 Hours) Vital Signs Temp Pulse Resp BP Pulse Ox 07/04/19 02:58 36.3 C L 76 16 113/61 94 07/03/19 23:10 36.6 C 69 15 103/58 L 97 Laboratory Results H & H 07/04/19 Range/Units 04:49 Hgb 10.8 L (14.0-18.0) g/dL Hct 35.1 L (42-52) % Coagulation 06/13/19 Range/Units 10:49 INR 1.0 (0.9-1.1) Diagnostic Findings Postoperative x-rays of the left shoulder show the prosthesis to be in anatomic alignment without any evidence of fracture, dislocation, or loosening. PG Care Time/CCT Total # of Minutes Spent Total Time Spent with Patient: Total time spent is greater than 50% in coordination of care (as documented) at patient's floor/unit and/or counseling patient:
[2019-07-04] MEDS: DORZOLAMIDE HCL 2% OPH SOLN 10 ML BTL OP SCH ×2 (08:29→14:20)
[2019-07-04] MEDS: SULFAMETHOXAZOLE/TRIMETHOPRIM DS 800/160MG TAB PO SCH (08:30)
[2019-07-04] MEDS: GABAPENTIN 400 MG CAP PO SCH (08:30)
[2019-07-04] MEDS: DOCUSATE SODIUM 100 MG CAP PO SCH (08:30)
[2019-07-04] MEDS: FERROUS SULFATE 325 MG TAB PO SCH (08:31)
[2019-07-04] MEDS: ZIPRASIDONE HCL 80 MG CAP PO SCH (08:31)
[2019-07-04] MEDS: BRIMONIDINE 0.2% OP SCH ×2 (08:31→14:20)
[2019-07-04] MEDS ORDERED: MULTIVITAMIN TAB PO SCH (09:00)
[2019-07-04] MEDS ORDERED: buPROPion HCl 100 MG TABLET PO SCH (09:00)
[2019-07-04] MEDS ORDERED: CITALOPRAM 40 MG TAB PO SCH (09:00)
[2019-07-04] MEDS: CHLORZOXAZONE 500 MG TAB PO PRN (14:21)
[2019-07-08] MEDS ORDERED: ALENDRONATE SODIUM 70 MG TAB PO SCH (06:30)
[2019-07-09] MEDS ORDERED: ALENDRONATE SODIUM 70 MG TAB PO SCH (06:30)
== END 2019-07-04 16:01 | DRG 483 ==
LOC: ASU 07:12 → 3E 11:47

== ENCOUNTER 2020-09-03 11:34 | Inpatient (IN) ==
[2020-09-03] MEDS ORDERED: SODIUM CHLORIDE 0.9% 1000ML 1,000 ML IV ONE (11:49)
[2020-09-03] MEDS ORDERED: cefTRIAXone SODIUM 1,000 MG/50 ML BAG IV STA ×2 (11:49→14:11)
[2020-09-03] MEDS ORDERED: AZITHROMYCIN 250 MG TAB PO ONE ×2 (11:49→14:08)
[2020-09-03] MEDS ORDERED: DEXAMETHASONE SOD INJ 10 MG/ML VIAL IV ONE (11:52)
--- NOTE | 2020-09-03 11:52 | Emergency Department Note ---
Impression & Plan Pneumonia due to 2019 novel coronavirus, Hypoxic, Pleural effusion, Ascites ED Provider Note NAME: NOY COREY AGE: 69 SEX: M : 1950 ARRIVES VIA: Ambulance INFORMANT: Patient ED PROVIDER(S): Justin Emmanuel DO CHIEF COMPLAINT: Shortness of breath HPI: Patient is a 69-year-old male with extensive past medical history includes esophageal varices, hypertension, drug dependence, GERD who is Covid positive and presents to the ER for shortness of breath. He tested positive within the past week. He notes the cough has been present since the end of July associated with a runny nose. Denies any sore throat. No belly pain, nausea, vomiting or diarrhea. Denies any dysuria, urgency or frequency. Denies any blood thinners. Does admit to significant shortness of breath over the past 2 days. Was a previous smoker. No history of any CHF. ROS: See above HPI for pertinent positives & negatives. A total of 10 systems reviewed and were otherwise negative. PAST MEDICAL HISTORY:See Below PAST SURGICAL HISTORY:See Below FAMILY HISTORY:See Below SOCIAL HISTORY:See Below HOME MEDICATIONS:See Below ALLERGIES:See Below VITALS:See Below PHYSICAL EXAMINATION: GENERAL: Sitting up in bed, alert, ill-appearing, moderate distress, on nonrebreather EYE EXAM: normal conjunctiva. OROPHARYNX: Dry mucous membranes NECK: supple, no nuchal rigidity, no adenopathy, non-tender LUNGS: Diminished bilaterally. Normal chest wall mechanics HEART: no murmurs, S1 normal and S2 normal ABDOMEN: abdomen soft, non-tender, distended, positive bowel sounds UPPER EXTREMITIES: upper extremities are grossly normal. LOWER EXTREMITIES: No pitting edema. Calves are equal bilateral NEURO EXAM: Normal sensorium, cranial nerves II-XII grossly intact, normal speech, no gross weakness of arms, no gross weakness of legs. MEDICAL DECISION MAKING: Patient is a 69-year-old male who presents to the ER for shortness of breath. Upon arrival he is found to be dyspneic and in severe respiratory distress. He is found to be 50% on nasal cannula via EMS. He switched over to a nonrebreather which got him up to 73% while waiting for BiPAP. BiPAP did arrive and he was placed on this. Pulse ox improved to 98%. Review was established blood work was obtained. Labs showed no significant leukocytosis or anemia. BMP was fairly unremarkable. VBG with pH of 7.3 and a CO2 of 43. D-dimer was elevated at 2300. Troponin was detectable but not positive. Pro-Joshua was up at 1.27. UA was contaminated. He was Covid positive as an outpatient. CTA of the chest shows fusion which appears to be consistent with previous and no PEs. I discussed the case with pulmonology and they recommend no thoracentesis but he will likely need a paracentesis. As he was comfortable in the ER did not perform this. He was given IV fluids IV Rocephin and azithromycin and steroids. He was updated bedside. Discussed with Dr. Doron Granados for further evaluat ion. Patient remained on BiPAP throughout his stay in the ER. Triage Nursing notes reviewed. Prior medical records reviewed Vital Signs: reviewed and remarkable for hypoxic Differential diagnosis: Differential diagnosis includes etiologies such as sepsis, UTI, pneumonia, metabolic, electrolyte abnormalities, cardiac sources, intracerebral event, toxicologic, neurological, as well as others were entertained. ER treatment provided: See below Diagnostics interpreted by me: ECG: Sinus rhythm rate of [address] wave changes in the lateral leads No PVCs Cardiac Monitoring: An order was placed for continuous cardiac monitoring. The monitor shows a rate of 86 with sinus rhythm. Laboratory studies: As stated above and show below. Imaging studies: CT angio of the chest shows no PEs but pleural effusion with multifocal infiltrates Consultation(s): Discussed with Dr. Doron Granados for admission Discussed with Dr. Alvarez from pulmonology who recommends no thoracentesis at this time and paracentesis ED COURSE: Procedures: none Critical Care: None Past Med/Surg History Medical History (Updated 09/03/20 @ 17:34 by Justin Emmanuel DO) Anxiety Chronic back pain Former smoker GERD (gastroesophageal reflux disease) Glaucoma Hearing deficit hearing aid (left) Hx MRSA infection left hip ~2009- on Bactrim BID as preventative maintenance (OR/infection control made aware) Hyperlipidemia Leg length discrepancy RLE > LLE s/p multiple left hip revisions (per patient, missing hip joint) due to complications from hip surgery/revisions/MRSA infection- on chronic preventative Bactrim-- uses shoe with elevated heel/crutches Osteoarthritis Peptic ulcer disease 12/2018 Pneumonia Restless leg syndrome Transient ischemic attack (TIA) x1 (~2014) Surgical History H/O eye surgery 2 DRAINAGE TUBES RT/LEFT EYE FOR GLAUCOMA currently in place History of bilateral cataract extraction History of colonoscopy History of esophagogastroduodenoscopy (EGD) History of hip surgery LEFT HIP SURGERY/REVISIONS (TOTAL OF 9 SURGERIES) History of laminectomy L3-L5 laminectomy: 05/12/15: Grade view 1, MAC#3, ETT 8.0 (atraumatic DL x 1) at [facility] History of tonsillectomy and adenoidectomy History of tooth extraction Status post reverse total arthroplasty of left shoulder Family History Other No family history of adverse response to anesthesia No pertinent family history Social History Smoking Status: Former smoker Second Hand Exposure: No; Hx Alcohol Use: Yes Alcohol type: beer Hx Substance Use: No Preferred Language: Egyptian Communication Ability: Effective Skate Maker Required: No Beliefs That Will Affect Care: None marital status: Current Living Situation: Spouse Feels Safe at Home: Yes Assistive Devices: Crutches, Denture - Upper, Denture - Lower, Glasses and Hearing Aid - Left Allergies Allergies Allergy/AdvReac Type Severity Reaction Status Date / Time No Known Allergies Allergy Unknown Verified 09/03/20 13:28 Home Meds Home Medications Medication Instructions Recorded Confirmed alendronate 70 mg PO WK 01/10/19 09/03/20 ascorbic acid (vitamin C) [Vitamin 500 mg PO QAM 01/10/19 09/03/20 C] bupropion HCl 100 mg PO QAM 01/10/19 09/03/20 buspirone 5 mg PO TID 01/10/19 09/03/20 calcium carbonate [Calcium 500] 500 mg PO QPM 01/10/19 09/03/20 citalopram 40 mg PO QAM 01/10/19 09/03/20 gabapentin 400 mg PO BID 01/10/19 09/03/20 magnesium oxide 400 mg PO QPM 01/10/19 09/03/20 saw palmetto 1,000 mg PO QAM 01/10/19 09/03/20 sulfamethoxazole-trimethoprim 1 tab PO Q12H 01/10/19 09/03/20 [Bactrim DS] tamsulosin [Flomax] 0.4 mg PO QPM 01/10/19 09/03/20 trazodone 50 mg PO HS 01/10/19 09/03/20 ziprasidone HCl 80 mg PO BID 01/10/19 09/03/20 cyanocobalamin (vitamin B-12) 2,500 mcg SUBLINGUAL QAM 02/17/19 09/03/20 [Vitamin B-12] aspirin [Aspirin Low Dose] 81 mg PO HS 06/13/19 09/03/20 dorzolamide 1 drp OPHTHALMIC (EYE) TID 06/13/19 09/03/20 latanoprost 1 drp OPHTHALMIC (EYE) PM 06/13/19 09/03/20 brimonidine 1 drp OPHTHALMIC (EYE) TID 07/03/19 09/03/20 sucralfate [Carafate] 1 gm PO HS 07/03/19 09/03/20 chlorzoxazone 500 mg tablet 750 mg PO TID 08/08/19 09/03/20 pantoprazole 40 mg PO QAM 08/01/20 09/03/20 Previous Rx's Medication Instructions Recorded hydrocodone 7.5 mg-acetaminophen 1 tab PO TID #90 tab 08/08/19 325 mg tablet HEEL LIFTS #1 ea 04/24/20 methylprednisolone 4 mg tablets in See Rx Instructions .ROUTE 08/27/20 a dose pack .COMPLEX #21 ea Results & Data (ED) Vital Signs Vital Signs - 24 hr 09/03/20 11:38 09/03/20 11:40 09/03/20 11:49 Temperature Temperature Source Pulse Rate 87 85 77 Pulse Rate [Left Apical] Pulse Rate from SpO2 Sensor 88 86 Respiratory Rate 30 H 32 H 25 H Respiratory Effort / Characteristics Spontaneous Short of Breath Respiratory Depth Normal Respiratory Pattern Regular Blood Pressure 168/89 H Blood Pressure [Left Arm] Blood Pressure Mean 114 Blood Pressure Mean [Left Arm] Pulse Oximetry 69 L 71 L 93 Oxygen Delivery Method Room Air Oxygen Flow Rate Fraction of Inspired Oxygen 100 SaO2/FiO2 Ratio Sepsis Recent Fever Within 48 Hours Sepsis New/Unexplained Change in Mental Status Sepsis Action Taken by Nursing Pulse Oximetry Post Tiitration 09/03/20 11:53 09/03/20 11:59 09/03/20 12:00 Temperature 37 C Temperature Source Oral Pulse Rate 73 73 Pulse Rate [Left Apical] Pulse Rate from SpO2 Sensor 72 Respiratory Rate 20 21 Respiratory Effort / Characteristics Respiratory Depth Respiratory Pattern Blood Pressure 168/89 H Blood Pressure [Left Arm] Blood Pressure Mean 115 Blood Pressure Mean [Left Arm] Pulse Oximetry 60 L 96 98 Oxygen Delivery Method Room Air BiPAP Oxygen Flow Rate Fraction of Inspired Oxygen SaO2/FiO2 Ratio Sepsis Recent Fever Within 48 Hours No Sepsis New/Unexplained Change in Mental Status No Sepsis Action Taken by Nursing No Action Required Pulse Oximetry Post Tiitration 09/03/20 12:04 09/03/20 12:06 09/03/20 12:13 Temperature Temperature Source Pulse Rate 75 Pulse Rate [Left Apical] 74 Pulse Rate from SpO2 Sensor 74 Respiratory Rate 18 24 Respiratory Effort / Characteristics Respiratory Depth Respiratory Pattern Blood Pressure 109/69 Blood Pressure [Left Arm] 109/69 Blood Pressure Mean 77 Blood Pressure Mean [Left Arm] 82 Pulse Oximetry 96 99 60 L Oxygen Delivery Method BiPAP Room Air BiPAP Oxygen Flow Rate 0 Fraction of Inspired Oxygen SaO2/FiO2 Ratio Sepsis Recent Fever Within 48 Hours Sepsis New/Unexplained Change in Mental Status Sepsis Action Taken by Nursing Pulse Oximetry Post Tiitration 98 09/03/20 12:30 09/03/20 12:31 09/03/20 13:06 Temperature Temperature Source Pulse Rate 77 73 74 Pulse Rate [Left Apical] Pulse Rate from SpO2 Sensor 79 73 Respiratory Rate 22 24 28 H Respiratory Effort / Characteristics Respiratory Depth Respiratory Pattern Blood Pressure 91/59 L Blood Pressure [Left Arm] Blood Pressure Mean 65 Blood Pressure Mean [Left Arm] Pulse Oximetry 98 98 Oxygen Delivery Method Oxygen Flow Rate Fraction of Inspired Oxygen SaO2/FiO2 Ratio Sepsis Recent Fever Within 48 Hours Sepsis New/Unexplained Change in Mental Status Sepsis Action Taken by Nursing Pulse Oximetry Post Tiitration 09/03/20 13:07 09/03/20 13:09 09/03/20 13:30 Temperature Temperature Source Pulse Rate 76 69 Pulse Rate [Left Apical] 78 Pulse Rate from SpO2 Sensor 156 H 69 Respiratory Rate 29 H 22 26 H Respiratory Effort / Characteristics Respiratory Depth Respiratory Pattern Blood Pressure 117/75 134/69 Blood Pressure [Left Arm] 117/75 Blood Pressure Mean 94 82 Blood Pressure Mean [Left Arm] 89 Pulse Oximetry 89 L 94 99 Oxygen Delivery Method BiPAP Oxygen Flow Rate Fraction of Inspired Oxygen 80 SaO2/FiO2 Ratio 117 Sepsis Recent Fever Within 48 Hours Sepsis New/Unexplained Change in Mental Status Sepsis Action Taken by Nursing Pulse Oximetry Post Tiitration 09/03/20 13:31 09/03/20 14:00 09/03/20 14:02 Temperature Temperature Source Pulse Rate 69 71 66 Pulse Rate [Left Apical] Pulse Rate from SpO2 Sensor 69 69 67 Respiratory Rate 23 21 21 Respiratory Effort / Characteristics Respiratory Depth Respiratory Pattern Blood Pressure 115/58 L Blood Pressure [Left Arm] Blood Pressure Mean 80 Blood Pressure Mean [Left Arm] Pulse Oximetry 99 97 96 Oxygen Delivery Method Oxygen Flow Rate Fraction of Inspired Oxygen SaO2/FiO2 Ratio Sepsis Recent Fever Within 48 Hours Sepsis New/Unexplained Change in Mental Status Sepsis Action Taken by Nursing Pulse Oximetry Post Tiitration 09/03/20 14:04 09/03/20 14:30 09/03/20 14:31 Temperature Temperature Source Pulse Rate 81 72 Pulse Rate [Left Apical] 64 Pulse Rate from SpO2 Sensor 77 73 Respiratory Rate 18 20 31 H Respiratory Effort / Characteristics Respiratory Depth Respiratory Pattern Blood Pressure 76/64 L Blood Pressure [Left Arm] 115/58 L Blood Pressure Mean 67 Blood Pressure Mean [Left Arm] 77 Pulse Oximetry 100 89 L 94 Oxygen Delivery Method BiPAP Oxygen Flow Rate Fraction of Inspired Oxygen SaO2/FiO2 Ratio Sepsis Recent Fever Within 48 Hours Sepsis New/Unexplained Change in Mental Status Sepsis Action Taken by Nursing Pulse Oximetry Post Tiitration 09/03/20 14:38 09/03/20 14:55 09/03/20 15:00 Temperature Temperature Source Pulse Rate 78 Pulse Rate [Left Apical] 79 Pulse Rate from SpO2 Sensor 78 76 Respiratory Rate 21 18 27 H Respiratory Effort / Characteristics Respiratory Depth Respiratory Pattern Blood Pressure 127/83 109/65 Blood Pressure [Left Arm] 127/83 Blood Pressure Mean 93 69 Blood Pressure Mean [Left Arm] 97 Pulse Oximetry 89 L 94 92 Oxygen Delivery Method BiPAP Oxygen Flow Rate Fraction of Inspired Oxygen SaO2/FiO2 Ratio Sepsis Recent Fever Within 48 Hours Sepsis New/Unexplained Change in Mental Status Sepsis Action Taken by Nursing Pulse Oximetry Post Tiitration 09/03/20 15:01 09/03/20 15:30 09/03/20 15:31 Temperature Temperature Source Pulse Rate 76 Pulse Rate [Left Apical] Pulse Rate from SpO2 Sensor 75 82 84 Respiratory Rate 28 H Respiratory Effort / Characteristics Respiratory Depth Respiratory Pattern Blood Pressure 133/83 Blood Pressure [Left Arm] Blood Pressure Mean 94 Blood Pressure Mean [Left Arm] Pulse Oximetry 94 91 93 Oxygen Delivery Method Oxygen Flow Rate Fraction of Inspired Oxygen SaO2/FiO2 Ratio Sepsis Recent Fever Within 48 Hours Sepsis New/Unexplained Change in Mental Status Sepsis Action Taken by Nursing Pulse Oximetry Post Tiitration 09/03/20 16:00 09/03/20 16:01 09/03/20 16:31 Temperature Temperature Source Pulse Rate 82 76 78 Pulse Rate [Left Apical] Pulse Rate from SpO2 Sensor 83 77 Respiratory Rate 20 21 22 Respiratory Effort / Characteristics Spontaneous Short of Breath Respiratory Depth Normal Respiratory Pattern Regular Blood Pressure 123/66 Blood Pressure [Left Arm] Blood Pressure Mean 74 Blood Pressure Mean [Left Arm] Pulse Oximetry 87 L 85 L 93 Oxygen Delivery Method BiPAP Oxygen Flow Rate 0 Fraction of Inspired Oxygen 80 SaO2/FiO2 Ratio 117 Sepsis Recent Fever Within 48 Hours Sepsis New/Unexplained Change in Mental Status Sepsis Action Taken by Nursing Pulse Oximetry Post Tiitration Laboratory Data Result diagrams: 09/03/20 11:45 09/03/20 11:45 Lab Results 09/03/20 09/03/20 09/03/20 Range/Units 11:45 11:45 11:45 WBC 8.37 (4.8-10.8) K/uL RBC 4.51 L (4.7-6.1) M/uL Hgb 12.7 L (14.0-18.0) g/dL Hct 38.9 L (42-52) % MCV 86.3 (80-100) fL MCH 28.2 (25-34) pg MCHC 32.6 (32-36) g/dL RDW Std Deviation 49.3 H (36.4-46.3) fL RDW Coeff of Timbo 15.5 H (11.5-14.5) % Plt Count 263 (130-400) K/uL MPV 8.8 (7.4-10.4) fL Immature Gran % (Auto) 0.1 % Neut % (Auto) 88.5 % Lymph % (Auto) 8.2 % Bradford % (Auto) 3.2 % Eos % (Auto) 0.0 % Baso % (Auto) 0.0 % Neut # (Auto) 7.40 H (1.4-6.5) K/uL Lymph # (Auto) 0.69 L (1.2-3.4) K/uL Bradford # (Auto) 0.27 (0.11-0.59) K/uL Eos # (Auto) 0.00 (0-0.5) K/uL Baso # (Auto) 0.00 (0-0.2) K/uL Immature Gran # (Auto) 0.01 (0.00-0.02) K/uL PT 11.9 (9.0-12.0) Seconds INR 1.1 (0.9-1.1) APTT 40.7 H (21.0-31.0) Seconds PTT Ratio 1.5 D-Dimer 2310 H* (0-500) ug/L FEU VBG pH (7.36-7.41) VBG pCO2 (38-50) mmHg VBG pO2 mmHg VBG HCO3 mmol/L VBG O2 Saturation % VBG Base Excess mEq/L Barometric Pressure mm/Hg Sodium 136 (136-145) mmol/L Potassium 4.0 (3.5-5.1) mmol/L Chloride 105 (98-107) mmol/L Carbon Dioxide 24 (21-32) mmol/L Anion Gap 7.0 (3-11) BUN 14 (7-18) mg/dl Creatinine 1.00 (0.6-1.4) mg/dl Est Cr Clr Drug Dosing 76.5 ml/min Est GFR ( Amer) 88.6 Est GFR (Non-Af Amer) 76.5 BUN/Creatinine Ratio 13.6 (10-20) Glucose 120 H (70-99) mg/dl Lactate (0.4-2.0) mmol/L Calcium 8.6 (8.5-10.1) mg/dl Magnesium 2.1 (1.8-2.4) mg/dl Ferritin (8-388) ng/ml Total Bilirubin 0.4 (0.2-1) mg/dl AST 46 H (15-37) U/L ALT 56 (12-78) U/L Alkaline Phosphatase 155 H (45-117) U/L Lactate Dehydrogenase (87-241) U/L Total Creatine Kinase (39-308) U/L Troponin I 0.037 (0-0.045) ng/ml C-Reactive Protein (0-0.29) mg/dl Total Protein 7.3 (6.4-8.2) gm/dl Albumin 2.6 L (3.4-5.0) gm/dl Globulin 4.7 H (2.5-4.0) gm/dl Albumin/Globulin Ratio 0.6 L (0.9-2) Procalcitonin (0-0.5) ng/ml Urine Color Urine Appearance (Clear) Urine pH (4.5-7.5) Ur Specific Pinson (1.000-1.030) Urine Protein (Negative) Urine Glucose (UA) (Negative) Urine Ketones (Negative) Urine Blood (Negative) Urine Nitrite (Negative) Urine Bilirubin (Negative) Urine Urobilinogen (Negative) Ur Leukocyte Esterase (Negative) Urine RBC (0-4) /hpf Urine WBC (0-5) /hpf Ur Epithelial Cells (0-5) /lpf Amorphous Sediment (None Prsent) Urine Bacteria (Negative) Nasal Screen MRSA (PCR) (Negative) Influ A Molecular Assay (Negative) Influ B Molecular Assay (Negative) 09/03/20 09/03/20 09/03/20 Range/Units 11:45 11:45 12:22 WBC (4.8-10.8) K/uL RBC (4.7-6.1) M/uL Hgb (14.0-18.0) g/dL Hct (42-52) % MCV (80-100) fL MCH (25-34) pg MCHC (32-36) g/dL RDW Std Deviation (36.4-46.3) fL RDW Coeff of Timbo (11.5-14.5) % Plt Count (130-400) K/uL MPV (7.4-10.4) fL Immature Gran % (Auto) % Neut % (Auto) % Lymph % (Auto) % Bradford % (Auto) % Eos % (Auto) % Baso % (Auto) % Neut # (Auto) (1.4-6.5) K/uL Lymph # (Auto) (1.2-3.4) K/uL Bradford # (Auto) (0.11-0.59) K/uL Eos # (Auto) (0-0.5) K/uL Baso # (Auto) (0-0.2) K/uL Immature Gran # (Auto) (0.00-0.02) K/uL PT (9.0-12.0) Seconds INR (0.9-1.1) APTT (21.0-31.0) Seconds PTT Ratio D-Dimer (0-500) ug/L FEU VBG pH 7.36 (7.36-7.41) VBG pCO2 43 (38-50) mmHg VBG pO2 36 mmHg VBG HCO3 23 mmol/L VBG O2 Saturation 64.2 % VBG Base Excess -2.2 mEq/L Barometric Pressure 737.3 mm/Hg Sodium (136-145) mmol/L Potassium (3.5-5.1) mmol/L Chloride (98-107) mmol/L Carbon Dioxide (21-32) mmol/L Anion Gap (3-11) BUN (7-18) mg/dl Creatinine (0.6-1.4) mg/dl Est Cr Clr Drug Dosing ml/min Est GFR ( Amer) Est GFR (Non-Af Amer) BUN/Creatinine Ratio (10-20) Glucose (70-99) mg/dl Lactate 2.7 H* (0.4-2.0) mmol/L Calcium (8.5-10.1) mg/dl Magnesium (1.8-2.4) mg/dl Ferritin (8-388) ng/ml Total Bilirubin (0.2-1) mg/dl AST (15-37) U/L ALT (12-78) U/L Alkaline Phosphatase (45-117) U/L Lactate Dehydrogenase (87-241) U/L Total Creatine Kinase (39-308) U/L Troponin I (0-0.045) ng/ml C-Reactive Protein (0-0.29) mg/dl Total Protein (6.4-8.2) gm/dl Albumin (3.4-5.0) gm/dl Globulin (2.5-4.0) gm/dl Albumin/Globulin Ratio (0.9-2) Procalcitonin 1.27 H (0-0.5) ng/ml Urine Color Urine Appearance (Clear) Urine pH (4.5-7.5) Ur Specific Pinson (1.000-1.030) Urine Protein (Negative) Urine Glucose (UA) (Negative) Urine Ketones (Negative) Urine Blood (Negative) Urine Nitrite (Negative) Urine Bilirubin (Negative) Urine Urobilinogen (Negative) Ur Leukocyte Esterase (Negative) Urine RBC (0-4) /hpf Urine WBC (0-5) /hpf Ur Epithelial Cells (0-5) /lpf Amorphous Sediment (None Prsent) Urine Bacteria (Negative) Nasal Screen MRSA (PCR) (Negative) Influ A Molecular Assay (Negative) Influ B Molecular Assay (Negative) 09/03/20 09/03/20 09/03/20 Range/Units 14:03 14:05 14:05 WBC (4.8-10.8) K/uL RBC (4.7-6.1) M/uL Hgb (14.0-18.0) g/dL Hct (42-52) % MCV (80-100) fL MCH (25-34) pg MCHC (32-36) g/dL RDW Std Deviation (36.4-46.3) fL RDW Coeff of Timbo (11.5-14.5) % Plt Count (130-400) K/uL MPV (7.4-10.4) fL Immature Gran % (Auto) % Neut % (Auto) % Lymph % (Auto) % Bradford % (Auto) % Eos % (Auto) % Baso % (Auto) % Neut # (Auto) (1.4-6.5) K/uL Lymph # (Auto) (1.2-3.4) K/uL Bradford # (Auto) (0.11-0.59) K/uL Eos # (Auto) (0-0.5) K/uL Baso # (Auto) (0-0.2) K/uL Immature Gran # (Auto) (0.00-0.02) K/uL PT (9.0-12.0) Seconds INR (0.9-1.1) APTT (21.0-31.0) Seconds PTT Ratio D-Dimer (0-500) ug/L FEU VBG pH (7.36-7.41) VBG pCO2 (38-50) mmHg VBG pO2 mmHg VBG HCO3 mmol/L VBG O2 Saturation % VBG Base Excess mEq/L Barometric Pressure mm/Hg Sodium (136-145) mmol/L Potassium (3.5-5.1) mmol/L Chloride (98-107) mmol/L Carbon Dioxide (21-32) mmol/L Anion Gap (3-11) BUN (7-18) mg/dl Creatinine (0.6-1.4) mg/dl Est Cr Clr Drug Dosing ml/min Est GFR ( Amer) Est GFR (Non-Af Amer) BUN/Creatinine Ratio (10-20) Glucose (70-99) mg/dl Lactate 1.4 (0.4-2.0) mmol/L Calcium (8.5-10.1) mg/dl Magnesium (1.8-2.4) mg/dl Ferritin 851.6 H (8-388) ng/ml Total Bilirubin (0.2-1) mg/dl AST (15-37) U/L ALT (12-78) U/L Alkaline Phosphatase (45-117) U/L Lactate Dehydrogenase 346 H (87-241) U/L Total Creatine Kinase 76 (39-308) U/L Troponin I (0-0.045) ng/ml C-Reactive Protein 22.50 H (0-0.29) mg/dl Total Protein (6.4-8.2) gm/dl Albumin (3.4-5.0) gm/dl Globulin (2.5-4.0) gm/dl Albumin/Globulin Ratio (0.9-2) Procalcitonin (0-0.5) ng/ml Urine Color Urine Appearance (Clear) Urine pH (4.5-7.5) Ur Specific Pinson (1.000-1.030) Urine Protein (Negative) Urine Glucose (UA) (Negative) Urine Ketones (Negative) Urine Blood (Negative) Urine Nitrite (Negative) Urine Bilirubin (Negative) Urine Urobilinogen (Negative) Ur Leukocyte Esterase (Negative) Urine RBC (0-4) /hpf Urine WBC (0-5) /hpf Ur Epithelial Cells (0-5) /lpf Amorphous Sediment (None Prsent) Urine Bacteria (Negative) Nasal Screen MRSA (PCR) (Negative) Influ A Molecular Assay (Negative) Influ B Molecular Assay (Negative) 09/03/20 09/03/20 09/03/20 Range/Units 14:10 15:00 Unknown WBC (4.8-10.8) K/uL RBC (4.7-6.1) M/uL Hgb (14.0-18.0) g/dL Hct (42-52) % MCV (80-100) fL MCH (25-34) pg MCHC (32-36) g/dL RDW Std Deviation (36.4-46.3) fL RDW Coeff of Timbo (11.5-14.5) % Plt Count (130-400) K/uL MPV (7.4-10.4) fL Immature Gran % (Auto) % Neut % (Auto) % Lymph % (Auto) % Bradford % (Auto) % Eos % (Auto) % Baso % (Auto) % Neut # (Auto) (1.4-6.5) K/uL Lymph # (Auto) (1.2-3.4) K/uL Bradford # (Auto) (0.11-0.59) K/uL Eos # (Auto) (0-0.5) K/uL Baso # (Auto) (0-0.2) K/uL Immature Gran # (Auto) (0.00-0.02) K/uL PT (9.0-12.0) Seconds INR (0.9-1.1) APTT (21.0-31.0) Seconds PTT Ratio D-Dimer (0-500) ug/L FEU VBG pH (7.36-7.41) VBG pCO2 (38-50) mmHg VBG pO2 mmHg VBG HCO3 mmol/L VBG O2 Saturation % VBG Base Excess mEq/L Barometric Pressure mm/Hg Sodium (136-145) mmol/L Potassium (3.5-5.1) mmol/L Chloride (98-107) mmol/L Carbon Dioxide (21-32) mmol/L Anion Gap (3-11) BUN (7-18) mg/dl Creatinine (0.6-1.4) mg/dl Est Cr Clr Drug Dosing ml/min Est GFR ( Amer) Est GFR (Non-Af Amer) BUN/Creatinine Ratio (10-20) Glucose (70-99) mg/dl Lactate (0.4-2.0) mmol/L Calcium (8.5-10.1) mg/dl Magnesium (1.8-2.4) mg/dl Ferritin (8-388) ng/ml Total Bilirubin (0.2-1) mg/dl AST (15-37) U/L ALT (12-78) U/L Alkaline Phosphatase (45-117) U/L Lactate Dehydrogenase (87-241) U/L Total Creatine Kinase (39-308) U/L Troponin I (0-0.045) ng/ml C-Reactive Protein (0-0.29) mg/dl Total Protein (6.4-8.2) gm/dl Albumin (3.4-5.0) gm/dl Globulin (2.5-4.0) gm/dl Albumin/Globulin Ratio (0.9-2) Procalcitonin (0-0.5) ng/ml Urine Color Yellow Urine Appearance Clear (Clear) Urine pH 6.0 (4.5-7.5) Ur Specific Pinson 1.045 H (1.000-1.030) Urine Protein 2+ H (Negative) Urine Glucose (UA) Negative (Negative) Urine Ketones Negative (Negative) Urine Blood Negative (Negative) Urine Nitrite Negative (Negative) Urine Bilirubin Negative (Negative) Urine Urobilinogen Negative (Negative) Ur Leukocyte Esterase Negative (Negative) Urine RBC 0-4 (0-4) /hpf Urine WBC 0-5 (0-5) /hpf Ur Epithelial Cells 0-5 (0-5) /lpf Amorphous Sediment Present A (None Prsent) Urine Bacteria 1+ H (Negative) Nasal Screen MRSA (PCR) Negative (Negative) Influ A Molecular Assay Negative (Negative) Influ B Molecular Assay Negative (Negative) Administered Medications Discontinued Medications Azithromycin (Azithromycin 250 Mg Tab) 500 mg PO NOW ONE Stop: 09/03/20 11:50 Last Admin: 09/03/20 14:33 Dose: 500 mg Documented by: [id number] Azithromycin (Azithromycin 250 Mg Tab) Confirm Administered Dose 500 mg PO .STK- MED ONE Stop: 09/03/20 14:09 Last Admin: 09/03/20 14:34 Dose: Not Given Documented by: [id number] Dexamethasone (Dexamethasone Sod Inj 10 Mg/Ml Vial) 6 mg IV NOW ONE Stop: 09/03/20 11:53 Last Admin: 09/03/20 12:33 Dose: 6 mg Documented by: [id number] Sodium Chloride (Nss 1000ml) 1,000 mls @ 999 mls/hr IV .Q1H1M ONE Stop: 09/03/20 12:49 Last Infusion: 09/03/20 12:54 Dose: 0 mls/hr Documented by: [id number] Admin: 09/03/20 11:52 Dose: 999 mls/hr Documented by: [id number] Ceftriaxone Sodium (Rocephin) 1,000 mg in 50 mls @ 100 mls/hr IV NOW STA Stop: 09/03/20 12:18 Last Infusion: 09/03/20 13:32 Dose: 0 mls/hr Documented by: [id number] Admin: 09/03/20 12:33 Dose: 100 mls/hr Documented by: [id number] Ioversol (Optiray 320 125ml) 119 ml IV ONCE ONE Stop: 09/03/20 12:47 Last Admin: 09/03/20 12:46 Dose: 119 ml Documented by: [id number] Discharge Plan Visit Data Chief Complaint: Shortness of Breath/Dyspnea Stated Complaint: WEAKNESS, UNABLE TO AMBULATE, COVID + ED Provider: Justin Emmanuel Discharge Problem: Pneumonia due to 2019 novel coronavirus, Hypoxic, Pleural effusion, Ascites Forms Stand Alone Forms: [facility] Prescriptions Prescriptions: No Action (DME) HEEL LIFTS Misc See Rx Instructions .ROUTE .MEDSUPPLY Qty: 1 RF: 0 methylprednisolone 4 mg tablets,dose pack See Rx Instructions .ROUTE .COMPLEX Qty: 21 RF: 0 hydrocodone-acetaminophen 7.5-325 mg tablet 1 tab PO TID Qty: 90 RF: 0 ziprasidone HCl 80 mg Capsule 80 mg PO BID RF: 0 buspirone 5 mg Tablet 5 mg PO TID RF: 0 citalopram 40 mg Tablet 40 mg PO QAM RF: 0 trazodone 50 mg Tablet 50 mg PO HS RF: 0 alendronate 70 mg Tablet 70 mg PO WK RF: 0 gabapentin 400 mg Capsule 400 mg PO BID RF: 0 sulfamethoxazole-trimethoprim [Bactrim DS] 800-160 mg Tablet 1 tab PO Q12H RF: 0 bupropion HCl 100 mg Tablet 100 mg PO QAM RF: 0 ascorbic acid (vitamin C) [Vitamin C] 500 mg Tablet 500 mg PO QAM RF: 0 tamsulosin [Flomax] 0.4 mg Capsule 0.4 mg PO QPM RF: 0 calcium carbonate [Calcium 500] 500 mg calcium (1,250 mg) Tablet,Chewable 500 mg PO QPM RF: 0 saw palmetto 500 mg Capsule 1,000 mg PO QAM RF: 0 magnesium oxide 400 mg magnesium Tablet 400 mg PO QPM RF: 0 pantoprazole 40 mg tablet,delayed release (DR/EC) 40 mg PO QAM RF: 0 cyanocobalamin (vitamin B-12) [Vitamin B-12] 2,500 mcg Tablet, Sublingual 2,500 mcg SUBLINGUAL QAM RF: 0 aspirin [Aspirin Low Dose] 81 mg Tablet,Delayed Release (Dr/Ec) 81 mg PO HS RF: 0 latanoprost 0.005 % Drops 1 drp OPHTHALMIC (EYE) PM RF: 0 dorzolamide 2 % Drops 1 drp OPHTHALMIC (EYE) TID RF: 0 sucralfate [Carafate] 1 gram tablet 1 gm PO HS RF: 0 brimonidine 0.2 % Drops 1 drp OPHTHALMIC (EYE) TID RF: 0 chlorzoxazone 500 mg tablet 750 mg PO TID RF: 0 Discharge Problem: Ascites Qualifiers: Ascites type: other type Qualified Code(s): R18.8 - Other ascites
[2020-09-03 12:05] LABS: Hematocrit (blood only) 38.9 % (42-52); Hemoglobin 12.7 g/dL (14.0-18.0); Mean Corpuscular Hemoglobin 28.2 pg (25-34); Mean Corpuscular Hgb Conc 32.6 g/dL (32-36); Mean Corpuscular Volume 86.3 fL (80-100); Mean Platelet Volume 8.8 fL (7.4-10.4); Platelet Count 263 K/uL (130-400); RDW Coefficient of Variation 15.5 % (11.5-14.5); RDW Standard Deviation 49.3 fL (36.4-46.3); Red Blood Count 4.51 M/uL (4.7-6.1); White Blood Count 8.37 K/uL (4.8-10.8)
[2020-09-03 12:17] LABS: INR 1.1 (0.9-1.1); Partial Thromboplastin Ratio 1.5; Partial Thromboplastin Time 40.7 Seconds (21.0-31.0); Prothrombin Time 11.9 Seconds (9.0-12.0)
[2020-09-03 12:21] LABS: D Dimer 2310 ug/L FEU (0-500)
--- NOTE | 2020-09-03 12:22 | XRay Report ---
XR chest 1V portable CLINICAL HISTORY: Sepsis. COMPARISON STUDY: Chest CT February 10, 2020. FINDINGS: Left shoulder arthroplasty is noted. Several calcific/ossific densities adjacent to the lef t scapular unchanged. Healing right clavicular fracture is noted with its dense of callus formation. There is no pneumothorax. A small right pleural effusion is noted. Extensive bilateral airspace opaci ties noted with interstitial thickening. Cardiomediastinal silhouette is stable. IMPRESSION: 1. Extensive bilateral airspace opacities with interstitial thickening. An infectious process with pn eumonia is favored. Pulmonary edema could appear similar. Radiographic follow-up is recommended. 2. Small right pleural effusion. ACT 112: Negative or not required by law. Electronically signed by: Kalyan Martinez M.D. 09/03/2020 12:20 PM
[2020-09-03 12:27] LABS: Albumin Level 2.6 gm/dl (3.4-5.0); BUN Creatinine Ratio 13.6 (10-20); Calcium 8.6 mg/dl (8.5-10.1); Creatinine Clr Calc Pharmacy 76.5 ml/min; Est GFR (African American) 88.6; Est GFR (Non-African American) 76.5; Magnesium 2.1 mg/dl (1.8-2.4)
[2020-09-03 12:32] LABS: Albumin Globulin Ratio 0.6 (0.9-2); Bilirubin,Total 0.4 mg/dl (0.2-1); Globulin 4.7 gm/dl (2.5-4.0); Total Protein 7.3 gm/dl (6.4-8.2); Troponin I 0.037 ng/ml (0-0.045)
[2020-09-03 12:35] LABS: Immature Granulocytes # (auto) 0.01 K/uL (0.00-0.02); Immature Granulocytes % (auto) 0.1 %; Lymphocytes # (auto) 0.69 K/uL (1.2-3.4); Lymphocytes % (auto) 8.2 %; Monocytes # (auto) 0.27 K/uL (0.11-0.59); Monocytes % (auto) 3.2 %; Neutrophils % (auto) 88.5 %
[2020-09-03 12:40] LABS: Base Excess VBG -2.2 mEq/L; Oxygen Saturation VBG 64.2 %; pH VBG 7.36 (7.36-7.41)
[2020-09-03] MEDS ORDERED: OPTIRAY 320 125ml IV ONE (12:46)
--- NOTE | 2020-09-03 12:49 | Electrocardiogram Report ---
Test Reason : Blood Pressure : / mmHG Vent. Rate : 085 BPM Atrial Rate : 085 BPM P-R Int : 130 ms QRS Dur : 084 ms QT Int : 394 ms P-R-T Axes : 059 -03 039 degrees QTc Int : 468 ms Normal sinus rhythm Normal ECG When compared with ECG of 26-DEC-2015 14:00, Vent. rate has increased BY 30 BPM Nonspecific T wave abnormality now evident in Anterior leads QT has lengthened Confirmed by Froilan Mehta ([id number]) on 09/03/2020 12:49:07 PM Referred By: Confirmed By:Froilan Mehta
--- NOTE | 2020-09-03 13:29 | CT Scan Report ---
CHEST CTA for PULMONARY ARTERIES CT DOSE: 614.88 mGycm HISTORY: Shortness of breath and covid TECHNIQUE: Multiaxial CT images of the chest were performed following the intravenous administration of contrast to evaluate the pulmonary arteries. Maximal intensity projection images were also obtaine d. A dose lowering technique was utilized adhering to the principles of ALARA. COMPARISON STUDY: Chest CT 02/10/2020. FINDINGS: Normal caliber thoracic aorta with no evidence for dissection. Right lower lobe and right m iddle lobe subsegmental pulmonary arteries are nondiagnostic due to motion artifact. The remaining pu lmonary arteries show no filling defects to suggest pulmonary embolus. Limited views of the upper abd omen demonstrate a normal liver, spleen, and adrenal glands. There are 2 cylindrical shaped densities within the proximal esophagus measures up to 1.7 cm. These may represent ingested medication. Old no nunited right clavicle fracture. No significant mediastinal or hilar lymphadenopathy. Small pericardi al effusion. Small to moderate right pleural effusion. This has slightly improved. Trace left pleural effusion. Bilateral gynecomastia. There is a left shoulder prosthesis. No pneumothorax. The central airways are patent. Near diffuse groundglass and consolidative airspace opacities consistent with a v iral pneumonia. IMPRESSION: 1. No evidence for pulmonary embolus. 2. Near diffuse multifocal groundglass and consolidative airspace opacities consistent with a viral p neumonia. 3. Small moderate right pleural effusion which has slightly improved. Trace left pleural effusion. 4. There are 2 cylindrical shaped densities within the proximal esophagus measures up to 1.7 cm. Thes e may represent ingested medication. ACT 112: Negative or not required by law. Electronically signed by: Krzysztof Tang M.D. 09/03/2020 1:28 PM
--- NOTE | 2020-09-03 13:44 | History & Physical Report ---
Date of Service September 03, 2020 Assessment & Plan (1) Pneumonia due to COVID-19 virus: Dexamethasone 6mg IV daily No convalescent plasma or remdesivir as symptoms > 1 week. (2) Acute respiratory failure with hypoxia: Procalcitonin positive and double illness therefore will continue on ceftriaxone and azithromycin to cover for bacterial pneumonia in addition to COVID-19 ?ARDS (3) GERD (gastroesophageal reflux disease): Continue pantoprazole 40mg PO daily (4) Hx MRSA infection: MRSA nose swab pending (5) Depression: Continue his usual medications with Wellbutrin, citalopram, buspirone and ziprasidone. (6) Hypertension: (7) DVT prophylaxis: Lovenox 40mg SQ BID Admission and Anticipated Discharge Date Admission Date: Sep 03, 2020 History of Present Illness Chief Complaint: Shortness of breath Primary Care Provider: Terri Do MD Brennan Saunders is a 69-year-old male with known COVID-19 pneumonia who presents to the ER via EMS from home with shortness of breath and bilateral lower extremity weakness since yesterday. Yesterday he received the experimental monoclonal antibody bamlanivimab at a clinic in [place] and felt much worse following this. He became progressively more short of breath to the point of this morning he was unable to get off the bed with bilateral lower extremity weakness therefore his called for an ambulance. He tested positive for COVID-19 6 days previously in [place]. Positive exposure with his son on August 22 who subsequently tested positive for Covid and the patient has had generalized symptoms since then with fatigue. He does not usually wear oxygen at home. No chest pain. Symptoms include: Fever, chills (today only), shortness of breath, non- productive cough, fatigue, nasal congestion. He denies any loss of taste or smell, myalgias, headache, sore throat, diarrhea, nausea/vomiting, confusion, chest or abdominal pain. Per EMS O2 sats were 60% on room air. This improved to 94% on BiPAP with FiO2 80%. Chest x-ray concerning for extensive bilateral airspace opacities with in terstitial thickening and small right pleural effusion. He was referred to medicine for admission and ongoing management of Covid 19, hypoxia, pleural effusion. Allergies Allergy/AdvReac Type Severity Reaction Status Date / Time No Known Allergies Allergy Unknown Verified 09/03/20 13:28 Home Medications Medication Instructions Recorded Confirmed Type alendronate 70 mg PO WK 01/10/19 09/03/20 History ascorbic acid (vitamin C) [Vitamin 500 mg PO QAM 01/10/19 09/03/20 History C] bupropion HCl 100 mg PO QAM 01/10/19 09/03/20 History buspirone 5 mg PO TID 01/10/19 09/03/20 History calcium carbonate [Calcium 500] 500 mg PO QPM 01/10/19 09/03/20 History citalopram 40 mg PO QAM 01/10/19 09/03/20 History gabapentin 400 mg PO BID 01/10/19 09/03/20 History magnesium oxide 400 mg PO QPM 01/10/19 09/03/20 History saw palmetto 1,000 mg PO QAM 01/10/19 09/03/20 History sulfamethoxazole-trimethoprim 1 tab PO Q12H 01/10/19 09/03/20 History [Bactrim DS] tamsulosin [Flomax] 0.4 mg PO QPM 01/10/19 09/03/20 History trazodone 50 mg PO HS 01/10/19 09/03/20 History ziprasidone HCl 80 mg PO BID 01/10/19 09/03/20 History cyanocobalamin (vitamin B-12) 2,500 mcg SUBLINGUAL QAM 02/17/19 09/03/20 History [Vitamin B-12] aspirin [Aspirin Low Dose] 81 mg PO HS 06/13/19 09/03/20 History dorzolamide 1 drp OPHTHALMIC (EYE) TID 06/13/19 09/03/20 History latanoprost 1 drp OPHTHALMIC (EYE) PM 06/13/19 09/03/20 History brimonidine 1 drp OPHTHALMIC (EYE) TID 07/03/19 09/03/20 History sucralfate [Carafate] 1 gm PO HS 07/03/19 09/03/20 History chlorzoxazone 500 mg tablet 750 mg PO TID 08/08/19 09/03/20 History HEEL LIFTS #1 ea 04/24/20 08/01/20 Rx pantoprazole 40 mg PO QAM 08/01/20 09/03/20 History Oxygen Home #1 ea 09/09/20 Rx hydrocodone-acetaminophen 1 tab PO Q8H PRN #14 tab 09/09/20 Rx Past Med/Surg History Medical History (Updated 09/10/20 @ 00:05 by Fay Bedoya) Anxiety Ascites Chronic back pain Former smoker GERD (gastroesophageal reflux disease) Glaucoma Hearing deficit hearing aid (left) Hyperlipidemia Leg length discrepancy RLE > LLE s/p multiple left hip revisions (per patient, missing hip joint) due to complications from hip surgery/revisions/MRSA infection- on chronic preventative Bactrim-- uses shoe with elevated heel/crutches Osteoarthritis Peptic ulcer disease 12/2018 Pleural effusion Pneumonia Pneumonia due to 2019 novel coronavirus Restless leg syndrome Transient ischemic attack (TIA) x1 (~2014) Surgical History H/O eye surgery 2 DRAINAGE TUBES RT/LEFT EYE FOR GLAUCOMA currently in place History of bilateral cataract extraction History of colonoscopy History of esophagogastroduodenoscopy (EGD) History of hip surgery LEFT HIP SURGERY/REVISIONS (TOTAL OF 9 SURGERIES) History of laminectomy L3-L5 laminectomy: 05/12/15: Grade view 1, MAC#3, ETT 8.0 (atraumatic DL x 1) at [facility] History of tonsillectomy and adenoidectomy History of tooth extraction Status post reverse total arthroplasty of left shoulder Family History Other No family history of adverse response to anesthesia No pertinent family history Social History Smoking Status: Former smoker Second Hand Exposure: No; Hx Alcohol Use: Yes Alcohol type: beer and hard liquor Hx Substance Use: No Preferred Language: Hungarian Communication Ability: Effective 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 Required: No Beliefs That Will Affect Care: None marital status: Current Living Situation: Spouse Feels Safe at Home: Yes Assistive Devices: Walker Review of Systems Review of Systems: All systems reviewed & are unremarkable except as noted in HPI & below Physical Exam Constitutional: well developed and + acute distress (respiratory) Eyes: + anicteric sclerae; normal pupil size ENMT: Mouth: + dry oral mucous membranes Neck: trachea midline, no thyromegaly Respiratory: + respiratory distress, + labored breathing, + retractions and + uses accessory muscles; + not able to speak in complete sentence Auscultation: + diminished lung sounds (bilaterally throughout) and + rhonchi (Bilaterally throughout); no wheezes Cardiovascular: Rate/Rhythm: regular rate and regular rhythm Heart Sounds: no murmur Gastrointestinal (Abdomen): normal bowel sounds, soft, nontender, no hepatosplenomegaly Musculoskeletal: no cyanosis or clubbing, extremities motor strength 5/5 Skin: no rashes, warm and dry (no cellulitis) Neurologic: moves all extremities and awake; not confused Psychiatric: A+Ox3, euthymic affect Results & Data Results & Data ([facility]) Vital Signs (Past 12 Hours) Vital Signs Temp Pulse Pulse Resp BP BP Pulse Ox 09/03/20 13:09 78 22 117/75 94 09/03/20 12:13 60 L 09/03/20 12:04 74 18 109/69 96 09/03/20 11:59 96 09/03/20 11:53 37 C 73 20 168/89 H 60 L 09/03/20 11:49 77 25 H 93 09/03/20 11:38 60 L Diagnostic Findings XR chest 1V portable IMPRESSION: 1. Extensive bilateral airspace opacities with interstitial thickening. An infectious process with pneumonia is favored. Pulmonary edema could appear similar. Radiographic follow-up is recommended. 2. Small right pleural effusion. CHEST CTA for PULMONARY ARTERIES IMPRESSION: 1. No evidence for pulmonary embolus. 2. Near diffuse multifocal groundglass and consolidative airspace opacities consistent with a viral pneumonia. 3. Small moderate right pleural effusion which has slightly improved. Trace left pleural effusion. 4. There are 2 cylindrical shaped densities within the proximal esophagus measures up to 1.7 cm. These may represent ingested medication. ECG Indication: SOB/dyspnea Rate (beats per minute): 85 Rhythm: normal sinus Findings: no acute ischemic change Comparison ECG Date: from (December 26, 2015) Change: no significant change Code Status & VTE Plan Code Status Full VTE Prophylaxis Plan VTE Prophylaxis will be ordered: Yes PG Care Time/CCT Total # of Minutes Spent Total Time Spent with Patient: Total time spent is greater than 50% in coordination of care (as documented) at patient's floor/unit and/or counseling patient: Coding Level of Care Code 74831 Initial Inpt Care Lvl 3 Diagnoses Pneumonia due to COVID-19 virus U07.1; J12.82 Acute respiratory failure with hypoxia J96.01 GERD (gastroesophageal reflux disease) K21.9 Hx MRSA infection Z86.14 Depression F32.9 Hypertension I10 DVT prophylaxis Z29.9
[2020-09-03] MEDS ORDERED: cefTRIAXone SODIUM 2,000 MG/70 ML BAG IV STA (14:14)
[2020-09-03 14:50] LABS: C Reactive Protein 22.5 mg/dl (0-0.29); Ferritin 851.6 ng/ml (8-388)
[2020-09-03 15:13] LABS: Appearance Urine Clear (Clear); Bilirubin Urine Negative (Negative); Blood Urine Negative (Negative); Color Urine Yellow; Glucose Urine UA Negative (Negative); Ketones Urine Negative (Negative); Leukocyte Esterase Urine Negative (Negative); Nitrite Urine Negative (Negative); Protein Urine 2+ (Negative); Specific Gravity Urine 1.045 (1.000-1.030); Urobilinogen Urine Negative (Negative)
[2020-09-03 15:36] LABS: Influenza A virus by PCR Negative (Negative); Influenza B virus by PCR Negative (Negative)
[2020-09-03 16:10] LABS: Bacteria Urine 1+ (Negative); Epithelial Cell Urine 0-5 /lpf (0-5); RBC Urine 0-4 /hpf (0-4); WBC Urine 0-5 /hpf (0-5)
[2020-09-03 16:11] LABS: Amorphous Sediment Urine Present (None Prsent)
[2020-09-03] MEDS ORDERED: cefTRIAXone SODIUM 1000MG/50ML D5W IV ONE (17:39)
[2020-09-03] MEDS ORDERED: POLYETHYLENE (MIRALAX) 17 GM PACK PO PRN (19:17)
[2020-09-03] MEDS ORDERED: ACETAMINOPHEN 325 MG TAB PO PRN (19:17)
[2020-09-03] MEDS ORDERED: ALUMINUM/MAGNESIUM SUSP 30 ML UDC PO PRN (19:17)
[2020-09-03] MEDS ORDERED: cefTRIAXone SODIUM 2,000 MG in DEXTROSE 5% 50 ML IV SCH (19:17)
[2020-09-03] MEDS: SUCRALFATE 1 GM TAB PO SCH (21:04)
[2020-09-03] MEDS: GABAPENTIN 400 MG CAP PO SCH (21:04)
[2020-09-03] MEDS: busPIRone 5 MG TAB PO SCH (21:04)
[2020-09-03] MEDS: traZODone HCL 50 MG TAB PO SCH (21:05)
[2020-09-03] MEDS: ASPIRIN 81 MG ECTAB PO SCH (21:05)
[2020-09-03] MEDS: BRIMONIDINE TART 0.2% OP SOLN PER DROP CHARGE OP SCH (21:05)
[2020-09-03] MEDS: CALCIUM CARBONATE 500 MG CHEWABLE TAB PO SCH (21:05)
[2020-09-03] MEDS: MAGNESIUM OXIDE 400 MG TAB PO SCH (21:05)
[2020-09-03] MEDS: TAMSULOSIN HCL 0.4 MG CAP PO SCH (21:05)
[2020-09-03] MEDS: LATANOPROST 0.005% OP SOLN 2.5 ML BTL OP SCH (21:06)
[2020-09-03] MEDS: DORZOLAMIDE HCL 2% OPH SOLN 10 ML BTL OP SCH (21:06)
[2020-09-03] MEDS: CHLORZOXAZONE 500 MG TAB PO SCH (21:06)
[2020-09-03] MEDS: HYDROCODONE/ACETAMINOPHEN 7.5/325MG TAB PO SCH (22:11)
[2020-09-04] MEDS: BRIMONIDINE TART 0.2% OP SOLN PER DROP CHARGE OP SCH ×4 (02:12→20:33)
[2020-09-04] MEDS: busPIRone 5 MG TAB PO SCH ×4 (02:12→20:29)
[2020-09-04] MEDS: DORZOLAMIDE HCL 2% OPH SOLN 10 ML BTL OP SCH ×4 (02:13→20:31)
[2020-09-04] MEDS: DEXAMETHASONE SOD PHOSPHATE 6 MG in SYRINGE 0 ML IV SCH (08:25)
[2020-09-04] MEDS: GABAPENTIN 400 MG CAP PO SCH ×2 (08:29→20:30)
[2020-09-04] MEDS: ziprasidone HCL 80 MG CAP PO SCH ×2 (08:29→20:28)
[2020-09-04] MEDS: AZITHROMYCIN 250 MG TAB PO SCH (08:29)
[2020-09-04] MEDS: ASCORBIC ACID 500 MG TAB PO SCH (08:29)
[2020-09-04] MEDS: CITALOPRAM 40 MG TAB PO SCH (08:29)
[2020-09-04] MEDS: CYANOCOBALAMIN (VITAMIN B-12) 2,500 MCG TAB.SUBL SL SCH (08:29)
[2020-09-04] MEDS: PANTOprazole 40 MG TAB PO SCH (08:29)
[2020-09-04] MEDS: buPROPion HCl 100 MG TABLET PO SCH (08:29)
[2020-09-04] MEDS: CHLORZOXAZONE 500 MG TAB PO SCH ×3 (08:30→22:36)
[2020-09-04] MEDS ORDERED: DEXAMETHASONE SOD INJ 4 MG/ML VIAL IV SCH (09:00)
[2020-09-04] MEDS: HYDROCODONE/ACETAMINOPHEN 7.5/325MG TAB PO SCH ×3 (09:55→20:35)
--- NOTE | 2020-09-04 10:38 | Hospitalist Progress Note ---
Date of Service September 04, 2020 Assessment & Plan (1) Pneumonia due to COVID-19 virus: symptoms for about a week prior to admission, was already on dexamethasone received experimental monoclonal antibody at [facility] on 09/03 and he got significantly worse that night brought to [facility] on BIPAP via EMS continue dexamethasone for 10 days out of the window for Remdesivir, plasma continue Rocephin and Zithromax for secondary bacterial coverage supportive care with oxygen encourage to lay on his side/prone when possible, stay well nourished (2) Acute respiratory failure with hypoxia: initially on BIPAP 80% FiO2 via EMS this morning he is stable on Vapotherm, 35L and 70%, RR in the 30's try to wean back oxygen further CT chest was negative for PE (3) GERD (gastroesophageal reflux disease): continue PPI, no symptoms currently (4) Hypertension: h/o such but not on medications BP 146/90 (5) Polyneuropathy: (6) Anemia: normocytic, Hb is 12.7 on admission follow periodically Admission and Anticipated Discharge Date Admission Date: September 03, 2020 Subjective patient was on BIPAP overnight, titrated to high flow this morning currently he is comfortable on 35L and 70% FiO2, speaking in sentences reviewed the chart, the patient says he got a lot worse after getting experimental monoclonal antibody for COVID he says he has been on dexamethasone prior to admission he was not eating or drinking well the past few days this morning he ate well and he was ordering his lunch and dinner, says he is hungry we discussed importance of trying to lay prone, he says he can lay on his side but cannot lay on stomach due to back pain labs were all stable yesterday, repeat tomorrow encouraged him to stay strong, will be here for at least a week, take it one day at a time Review of Systems Review of Systems: All systems reviewed & are unremarkable except as noted in Subjective Constitutional: + fatigue and + weakness; no fever, no chills and no sweats Respiratory: + cough, + dyspnea and + dyspnea on exertion; no wheezing Cardiovascular: no chest pain and no edema Gastrointestinal: no abdominal pain, no nausea, no vomiting, no constipation and no diarrhea/loose stools Physical Exam Constitutional: well developed, well nourished and + ill appearing; no acute distress Neck: trachea midline, no thyromegaly Respiratory: + uses accessory muscles, + cough and + tachypneic; no respiratory distress and no labored breathing Auscultation: lungs clear to auscultation bilaterally Cardiovascular: RRR, no murmur, no edema Gastrointestinal (Abdomen): normal bowel sounds, soft, nontender, no hepatosplenomegaly Musculoskeletal: no cyanosis or clubbing, extremities motor strength 5/5 Skin: no rashes, warm and dry Neurologic: patellar DTR's 2+ bilat, sensation intact and PERRL, EOMI, accommodation nl, no face palsy, no dysarthria Psychiatric: A+Ox3, euthymic affect Lymphatic: no cervical or axillary lymphadenopathy Results & Data Results & Data ([facility]) Vital Signs (Past 12 Hours) Vital Signs Temp Pulse Pulse Resp BP Pulse Ox 09/04/20 07:35 36.6 C 84 25 H 146/90 H 96 09/04/20 07:23 84 18 97 09/04/20 03:59 35.8 C L 82 26 H 155/100 H 28 L 09/04/20 03:04 68 24 95 09/03/20 23:31 36.1 C L 85 24 152/94 H 95 09/03/20 23:03 79 20 95 Laboratory Results Laboratory Results - last 24 hr 09/03/20 09/03/20 09/03/20 11:45 11:45 11:45 WBC 8.37 RBC 4.51 L Hgb 12.7 L Hct 38.9 L MCV 86.3 MCH 28.2 MCHC 32.6 RDW Std Deviation 49.3 H RDW Coeff of [place] 15.5 H Plt Count 263 MPV 8.8 Immature Gran % (Auto) 0.1 Neut % (Auto) 88.5 Lymph % (Auto) 8.2 [place] % (Auto) 3.2 Eos % (Auto) 0.0 Baso % (Auto) 0.0 Neut # (Auto) 7.40 H Lymph # (Auto) 0.69 L [place] # (Auto) 0.27 Eos # (Auto) 0.00 Baso # (Auto) 0.00 Immature Gran # (Auto) 0.01 PT 11.9 INR 1.1 APTT 40.7 H PTT Ratio 1.5 D-Dimer 2310 H* VBG pH VBG pCO2 VBG pO2 VBG HCO3 VBG O2 Saturation VBG Base Excess Barometric Pressure Sodium 136 Potassium 4.0 Chloride 105 Carbon Dioxide 24 Anion Gap 7.0 BUN 14 Creatinine 1.00 Est Cr Clr Drug Dosing 76.5 Est GFR ( Amer) 88.6 Est GFR (Non-Af Amer) 76.5 BUN/Creatinine Ratio 13.6 Glucose 120 H POC Glucose Lactate Calcium 8.6 Magnesium 2.1 Ferritin Total Bilirubin 0.4 AST 46 H ALT 56 Alkaline Phosphatase 155 H Lactate Dehydrogenase Total Creatine Kinase Troponin I 0.037 C-Reactive Protein Total Protein 7.3 Albumin 2.6 L Globulin 4.7 H Albumin/Globulin Ratio 0.6 L Procalcitonin Urine Color Urine Appearance Urine pH Ur Specific [place] Urine Protein Urine Glucose (UA) Urine Ketones Urine Blood Urine Nitrite Urine Bilirubin Urine Urobilinogen Ur Leukocyte Esterase Urine RBC Urine WBC Ur Epithelial Cells Amorphous Sediment Urine Bacteria Nasal Screen MRSA (PCR) Influ A Molecular Assay Influ B Molecular Assay 09/03/20 09/03/20 09/03/20 11:45 11:45 12:22 WBC RBC Hgb Hct MCV MCH MCHC RDW Std Deviation RDW Coeff of [place] Plt Count MPV Immature Gran % (Auto) Neut % (Auto) Lymph % (Auto) [place] % (Auto) Eos % (Auto) Baso % (Auto) Neut # (Auto) Lymph # (Auto) [place] # (Auto) Eos # (Auto) Baso # (Auto) Immature Gran # (Auto) PT INR APTT PTT Ratio D-Dimer VBG pH 7.36 VBG pCO2 43 VBG pO2 36 VBG HCO3 23 VBG O2 Saturation 64.2 VBG Base Excess -2.2 Barometric Pressure 737.3 Sodium Potassium Chloride Carbon Dioxide Anion Gap BUN Creatinine Est Cr Clr Drug Dosing Est GFR ( Amer) Est GFR (Non-Af Amer) BUN/Creatinine Ratio Glucose POC Glucose Lactate 2.7 H* Calcium Magnesium Ferritin Total Bilirubin AST ALT Alkaline Phosphatase Lactate Dehydrogenase Total Creatine Kinase Troponin I C-Reactive Protein Total Protein Albumin Globulin Albumin/Globulin Ratio Procalcitonin 1.27 H Urine Color Urine Appearance Urine pH Ur Specific [place] Urine Protein Urine Glucose (UA) Urine Ketones Urine Blood Urine Nitrite Urine Bilirubin Urine Urobilinogen Ur Leukocyte Esterase Urine RBC Urine WBC Ur Epithelial Cells Amorphous Sediment Urine Bacteria Nasal Screen MRSA (PCR) Influ A Molecular Assay Influ B Molecular Assay 09/03/20 09/03/2009/03/21 14:03 14:05 14:05 WBC RBC Hgb Hct MCV MCH MCHC RDW Std Deviation RDW Coeff of [place] Plt Count MPV Immature Gran % (Auto) Neut % (Auto) Lymph % (Auto) [place] % (Auto) Eos % (Auto) Baso % (Auto) Neut # (Auto) Lymph # (Auto) [place] # (Auto) Eos # (Auto) Baso # (Auto) Immature Gran # (Auto) PT INR APTT PTT Ratio D-Dimer VBG pH VBG pCO2 VBG pO2 VBG HCO3 VBG O2 Saturation VBG Base Excess Barometric Pressure Sodium Potassium Chloride Carbon Dioxide Anion Gap BUN Creatinine Est Cr Clr Drug Dosing Est GFR ( Amer) Est GFR (Non-Af Amer) BUN/Creatinine Ratio Glucose POC Glucose Lactate 1.4 Calcium Magnesium Ferritin 851.6 H Total Bilirubin AST ALT Alkaline Phosphatase Lactate Dehydrogenase 346 H Total Creatine Kinase 76 Troponin I C-Reactive Protein 22.50 H Total Protein Albumin Globulin Albumin/Globulin Ratio Procalcitonin Urine Color Urine Appearance Urine pH Ur Specific [place] Urine Protein Urine Glucose (UA) Urine Ketones Urine Blood Urine Nitrite Urine Bilirubin Urine Urobilinogen Ur Leukocyte Esterase Urine RBC Urine WBC Ur Epithelial Cells Amorphous Sediment Urine Bacteria Nasal Screen MRSA (PCR) Influ A Molecular Assay Influ B Molecular Assay 09/03/20 09/03/20 09/03/20 14:10 15:00 19:53 WBC RBC Hgb Hct MCV MCH MCHC RDW Std Deviation RDW Coeff of [place] Plt Count MPV Immature Gran % (Auto) Neut % (Auto) Lymph % (Auto) [place] % (Auto) Eos % (Auto) Baso % (Auto) Neut # (Auto) Lymph # (Auto) [place] # (Auto) Eos # (Auto) Baso # (Auto) Immature Gran # (Auto) PT INR APTT PTT Ratio D-Dimer VBG pH VBG pCO2 VBG pO2 VBG HCO3 VBG O2 Saturation VBG Base Excess Barometric Pressure Sodium Potassium Chloride Carbon Dioxide Anion Gap BUN Creatinine Est Cr Clr Drug Dosing Est GFR ( Amer) Est GFR (Non-Af Amer) BUN/Creatinine Ratio Glucose POC Glucose 128 H Lactate Calcium Magnesium Ferritin Total Bilirubin AST ALT Alkaline Phosphatase Lactate Dehydrogenase Total Creatine Kinase Troponin I C-Reactive Protein Total Protein Albumin Globulin Albumin/Globulin Ratio Procalcitonin Urine Color Yellow Urine Appearance Clear Urine pH 6.0 Ur Specific [place] 1.045 H Urine Protein 2+ H Urine Glucose (UA) Negative Urine Ketones Negative Urine Blood Negative Urine Nitrite Negative Urine Bilirubin Negative Urine Urobilinogen Negative Ur Leukocyte Esterase Negative Urine RBC 0-4 Urine WBC 0-5 Ur Epithelial Cells 0-5 Amorphous Sediment Present A Urine Bacteria 1+ H Nasal Screen MRSA (PCR) Influ A Molecular Assay Negative Influ B Molecular Assay Negative 09/03/20 Unknown WBC RBC Hgb Hct MCV MCH MCHC RDW Std Deviation RDW Coeff of [place] Plt Count MPV Immature Gran % (Auto) Neut % (Auto) Lymph % (Auto) [place] % (Auto) Eos % (Auto) Baso % (Auto) Neut # (Auto) Lymph # (Auto) [place] # (Auto) Eos # (Auto) Baso # (Auto) Immature Gran # (Auto) PT INR APTT PTT Ratio D-Dimer VBG pH VBG pCO2 VBG pO2 VBG HCO3 VBG O2 Saturation VBG Base Excess Barometric Pressure Sodium Potassium Chloride Carbon Dioxide Anion Gap BUN Creatinine Est Cr Clr Drug Dosing Est GFR ( Amer) Est GFR (Non-Af Amer) BUN/Creatinine Ratio Glucose POC Glucose Lactate Calcium Magnesium Ferritin Total Bilirubin AST ALT Alkaline Phosphatase Lactate Dehydrogenase Total Creatine Kinase Troponin I C-Reactive Protein Total Protein Albumin Globulin Albumin/Globulin Ratio Procalcitonin Urine Color Urine Appearance Urine pH Ur Specific [place] Urine Protein Urine Glucose (UA) Urine Ketones Urine Blood Urine Nitrite Urine Bilirubin Urine Urobilinogen Ur Leukocyte Esterase Urine RBC Urine WBC Ur Epithelial Cells Amorphous Sediment Urine Bacteria Nasal Screen MRSA (PCR) Negative Influ A Molecular Assay Influ B Molecular Assay Medications Administered Current Inpatient Medications Acetaminophen (Acetaminophen 325 Mg Tab) 650 mg PO Q4H PRN PRN Reason: Pain or Fever Stop: 10/03/20 19:16 Hydrocodone Bitart/Acetaminophen (Hydrocodone/Acetaminophen 7.5/325mg Tab) 1 tab PO TID [facility] Stop: 09/17/20 19:16 Last Admin: 09/04/20 09:55 Dose: 1 tab Documented by: Al Hydrox/Mg Hydrox/Simethicone (Aluminum/Magnesium Susp 30 Ml Udc) 15 ml PO Q4H PRN PRN Reason: Dyspepsia Stop: 10/03/20 19:16 Ascorbic Acid (Ascorbic Acid 500 Mg Tab) 500 mg PO QAM [facility] Stop: 10/04/20 08:59 Last Admin: 09/04/20 08:29 Dose: 500 mg Documented by: Aspirin (Aspirin 81 Mg Ectab) 81 mg PO HS [facility] Stop: 10/03/20 20:59 Last Admin: 09/03/20 21:05 Dose: 81 mg Documented by: Azithromycin ([facility]ith[facility] 250 Mg Tab) [facility] Stop: 09/08/20 08:59 Last Admin: 09/04/20 08:29 Dose: 250 mg Documented by: Brimonidine Tartrate (Brimonidine Tart 0.2% Op Soln Per Drop Charge) 1 drops OP TID [facility] Stop: 10/03/20 19:16 Last Admin: 09/04/20 09:56 Dose: 1 drops Documented by: Bupropion HCl (Bupropion Hcl 100 Mg Tablet) 100 mg PO [facility] Stop: 10/04/20 08:59 Last Admin: 09/04/20 08:29 Dose: 100 mg Documented by: Buspirone HCl (Buspirone 5 Mg Tab) 5 mg PO TID [facility] Stop: 10/03/20 19:16 Last Admin: 09/04/20 08:29 Dose: 5 mg Documented by: Calcium Carbonate (Calcium Carbonate 500 Mg Chewable Tab) 500 mg PO QPM [facility] Stop: 10/03/20 20:59 Last Admin: 09/03/20 21:05 Dose: 500 mg Documented by: Chlorzoxazone (Chlorzoxazone 500 Mg Tab) 750 mg PO TID [facility] Stop: 10/03/20 19:16 Last Admin: 09/04/20 08:30 Dose: 750 mg Documented by: Citalopram Hydrobromide (Citalopram 40 Mg Tab) 40 mg PO [facility] Stop: 10/04/20 08:59 Last Admin: 09/04/20 08:29 Dose: 40 mg Documented by: Cyanocobalamin (Cyanocobalamin (Vitamin B-12) 2,500 Mcg Tab.Subl) 2,500 mcg SL [facility] Stop: 10/04/20 08:59 Last Admin: 09/04/20 08:29 Dose: 2,500 mcg Documented by: Dorzolamide HCl (Dorzolamide Hcl 2% Oph Soln 10 Ml Btl) 1 drops OP TID [facility] Stop: 10/03/20 19:16 Last Admin: 09/04/20 08:26 Dose: 1 drops Documented by: Gabapentin (Gabapentin 400 Mg Cap) 400 mg PO BID [facility] Stop: 10/03/20 20:59 Last Admin: 09/04/20 08:29 Dose: 400 mg Documented by: Ceftriaxone Sodium 2,000 mg/ (Dextrose) 70 mls @ 140 mls/hr IV Q24H [facility] Stop: 09/10/20 11:59 Dexamethasone Sodium Phosphate (6 mg/ Syringe) 1.5 mls @ 1 mls/min IV QAM [facility] Stop: 09/13/20 08:59 Last Admin: 09/04/20 08:25 Dose: 1 mls/min Documented by: Latanoprost (Latanoprost 0.005% Op Soln 2.5 Ml Btl) 1 drops OP PM [facility] Stop: 10/03/20 20:59 Last Admin: 09/03/20 21:06 Dose: 1 drops Documented by: Magnesium Oxide (Magnesium Oxide 400 Mg Tab) 400 mg PO QPM [facility] Stop: 10/03/20 20:59 Last Admin: 09/03/20 21:05 Dose: 400 mg Documented by: Pantoprazole Sodium (Pantoprazole 40 Mg Tab) 40 mg PO QAM [facility] Stop: 10/04/20 08:59 Last Admin: 09/04/20 08:29 Dose: 40 mg Documented by: Polyethylene Glycol (Polyethylene (Miralax) 17 Gm Pack) 17 gm PO DAILY PRN PRN Reason: Constipation Stop: 10/03/20 19:16 Sucralfate (Sucralfate 1 Gm Tab) 1 gm PO [facility] Stop: 10/03/20 20:59 Last Admin: 09/03/20 21:04 Dose: 1 gm Documented by: Tamsulosin HCl (Tamsulosin Hcl 0.4 Mg Cap) 0.4 mg PO QPM [facility] Stop: 10/03/20 20:59 Last Admin: 09/03/20 21:05 Dose: 0.4 mg Documented by: Trazodone HCl (Trazodone Hcl 50 Mg Tab) 50 mg PO [facility] Stop: 10/03/20 20:59 Last Admin: 09/03/20 21:05 Dose: 50 mg Documented by: Ziprasidone (Ziprasidone Hcl 80 Mg Cap) 80 mg PO BID [facility] Stop: 10/03/20 20:59 Last Admin: 09/04/20 08:29 Dose: 80 mg Documented by: PG Care Time/CCT Total # of Minutes Spent Total Time Spent with Patient: Total time spent is greater than 50% in coordination of care (as documented) at patient's floor/unit and/or counseling patient: Coding Level of Care Code 83919 Subseq Hosp Care Lvl 3 Diagnoses Pneumonia due to COVID-19 virus U07.1; J12.82 Acute respiratory failure with hypoxia J96.01 GERD (gastroesophageal reflux disease) K21.9 Hypertension I10 Polyneuropathy G62.9 Anemia D64.9
[2020-09-04] MEDS: cefTRIAXone SODIUM 2,000 MG in DEXTROSE 5% 50 ML IV SCH (11:58)
[2020-09-04] MEDS ORDERED: DEXAMETHASONE SOD PHOSPHATE 6 MG in SYRINGE 0 ML IV SCH (12:00)
[2020-09-04] MEDS: ENOXAPARIN INJ 40 MG/0.4 ML SYR SQ SCH (20:27)
[2020-09-04] MEDS: ASPIRIN 81 MG ECTAB PO SCH (20:28)
[2020-09-04] MEDS: TAMSULOSIN HCL 0.4 MG CAP PO SCH (20:28)
[2020-09-04] MEDS: SUCRALFATE 1 GM TAB PO SCH (20:28)
[2020-09-04] MEDS: MAGNESIUM OXIDE 400 MG TAB PO SCH (20:29)
[2020-09-04] MEDS: CALCIUM CARBONATE 500 MG CHEWABLE TAB PO SCH (20:31)
[2020-09-04] MEDS: LATANOPROST 0.005% OP SOLN 2.5 ML BTL OP SCH (20:31)
[2020-09-04] MEDS: traZODone HCL 50 MG TAB PO SCH (22:23)
[2020-09-05] MEDS ORDERED: hydrALAZINE HCL 20 MG/ML VIAL IV PRN (08:56)
--- NOTE | 2020-09-05 08:56 | Hospitalist Progress Note ---
Date of Service September 05, 2020 Assessment & Plan (1) Pneumonia due to COVID-19 virus: symptoms for about a week prior to admission, was already on dexamethasone received experimental monoclonal antibody at [facility] on 09/03 and he got significantly worse that night brought to [facility] on BIPAP via EMS continue dexamethasone for 10 days, day 3 of this admission out of the window for Remdesivir, plasma continue Rocephin and Zithromax for secondary bacterial coverage for 5 days total, day 3 today supportive care with oxygen, he is down to 8L high flow from wall this morning encourage to lay on his side/prone when possible, stay well nourished (2) Acute respiratory failure with hypoxia: initially on BIPAP 80% FiO2 via EMS this morning he is stable on 8L wall high flow, no distress, no accessory muscles try to wean back oxygen further CT chest was negative for PE (3) GERD (gastroesophageal reflux disease): Continue pantoprazole 40mg PO daily (4) Depression: Continue his usual medications with Wellbutrin, citalopram, buspirone and ziprasidone. mood is stable, he is optimistic about getting better (5) Hypertension: BP markedly elevated at 171 systolic could be degree of withdrawal as his states he takes more hydrocodone than prescribed use Hydralazine PRN for SBP > 180 (6) DVT prophylaxis: (7) Drug dependence: continue on Hydrocodone 7.5mg TID, his family reports he takes more than prescribed continue Paraflex BID (8) Neck pain: stable on Hydrocodone and Paraflex Admission and Anticipated Discharge Date Admission Date: September 03, 2020 Subjective patient doing really good, titrated down to 8L wall high flow this morning no respiratory distress, no cough, no chest pain no nausea, he has a little diarrhea this morning he is asking about his Paraflex and Hydrocodone, assured him they are both ordered no labs this morning, will check them at 11am since he did not have labs yesterday discussed that he will be here over the weekend, hopeful for discharge by midweek next week Review of Systems Review of Systems: All systems reviewed & are unremarkable except as noted in Subjective Physical Exam Constitutional: well developed, well nourished and + ill appearing; no acute distress Neck: trachea midline, no thyromegaly Respiratory: normal respiratory effort, + cough and + tachypneic; no respiratory distress, no labored breathing and does not use accessory muscles Auscultation: lungs clear to auscultation bilaterally Cardiovascular: RRR, no murmur, no edema Gastrointestinal (Abdomen): normal bowel sounds, soft, nontender, no hepatosplenomegaly Musculoskeletal: no cyanosis or clubbing, extremities motor strength 5/5 Skin: no rashes, warm and dry Neurologic: patellar DTR's 2+ bilat, sensation intact and PERRL, EOMI, accommodation nl, no face palsy, no dysarthria Psychiatric: A+Ox3, euthymic affect Lymphatic: no cervical or axillary lymphadenopathy Results & Data Results & Data ([facility]) Vital Signs (Past 12 Hours) Vital Signs Temp Pulse Pulse Resp BP Pulse Ox 09/05/20 07:27 36.4 C L 66 20 171/88 H 95 09/05/20 03:37 36.4 C L 76 22 168/95 H 92 09/04/20 23:50 75 09/04/20 23:06 36.5 C 83 18 163/87 H 92 Medications Administered Current Inpatient Medications Acetaminophen (Acetaminophen 325 Mg Tab) 650 mg PO Q4H PRN PRN Reason: Pain or Fever Stop: 10/03/20 19:16 Hydrocodone Bitart/Acetaminophen (Hydrocodone/Acetaminophen 7.5/325mg Tab) 1 tab PO TID [facility] Stop: 09/17/20 19:16 Last Admin: 09/04/20 20:35 Dose: 1 tab Documented by: Al Hydrox/Mg Hydrox/Simethicone (Aluminum/Magnesium Susp 30 Ml Udc) 15 ml PO Q4H PRN PRN Reason: Dyspepsia Stop: 10/03/20 19:16 Ascorbic Acid (Ascorbic Acid 500 Mg Tab) [facility] Stop: 10/04/20 08:59 Last Admin: 09/04/20 08:29 Dose: 500 mg Documented by: Aspirin (Aspirin 81 Mg Ectab) 81 mg PO [facility] Stop: 10/03/20 20:59 Last Admin: 09/04/20 20:28 Dose: 81 mg Documented by: Azithromycin (Azithromycin 250 Mg Tab) [facility] Stop: 09/08/20 08:59 Last Admin: 09/04/20 08:29 Dose: 250 mg Documented by: Brimonidine Tartrate (Brimonidine Tart 0.2% Op Soln Per Drop Charge) 1 drops OP TID [facility] Stop: 10/03/20 19:16 Last Admin: 09/04/20 20:33 Dose: 1 drops Documented by: Bupropion HCl (Bupropion Hcl 100 Mg Tablet) 100 mg PO QAM [facility] Stop: 10/04/20 08:59 Last Admin: 09/04/20 08:29 Dose: 100 mg Documented by: Buspirone HCl (Buspirone 5 Mg Tab) 5 mg PO TID [facility] Stop: 10/03/20 19:16 Last Admin: 09/04/20 20:29 Dose: 5 mg Documented by: Calcium Carbonate (Calcium Carbonate 500 Mg Chewable Tab) 500 mg PO QPM [facility] Stop: 10/03/20 20:59 Last Admin: 09/04/20 20:31 Dose: 500 mg Documented by: Chlorzoxazone (Chlorzoxazone 500 Mg Tab) 750 mg PO TID [facility] Stop: 10/03/20 19:16 Last Admin: 09/04/20 22:36 Dose: 750 mg Documented by: Citalopram Hydrobromide (Citalopram 40 Mg Tab) 40 mg PO QAM [facility] Stop: 10/04/20 08:59 Last Admin: 09/04/20 08:29 Dose: 40 mg Documented by: Cyanocobalamin (Cyanocobalamin (Vitamin B-12) 2,500 Mcg Tab.Subl) 2,500 mcg SL QAM [facility] Stop: 10/04/20 08:59 Last Admin: 09/04/20 08:29 Dose: 2,500 mcg Documented by: Dorzolamide HCl (Dorzolamide Hcl 2% Oph Soln 10 Ml Btl) 1 drops OP TID [facility] Stop: 10/03/20 19:16 Last Admin: 09/04/20 20:31 Dose: 1 drops Documented by: Enoxaparin Sodium (Enoxaparin Inj 40 Mg/0.4 Ml Syr) 40 mg SQ BID [facility] Stop: 10/04/20 20:59 Last Admin: 09/04/20 20:27 Dose: 40 mg Documented by: Gabapentin (Gabapentin 400 Mg Cap) 400 mg PO BID [facility] Stop: 10/03/20 20:59 Last Admin: 09/04/20 20:30 Dose: 400 mg Documented by: Ceftriaxone Sodium 2,000 mg/ (Dextrose) 70 mls @ 140 mls/hr IV Q24H [facility] Stop: 09/10/20 11:59 Last Infusion: 09/04/20 12:52 Dose: Infused Documented by: Dexamethasone Sodium Phosphate (6 mg/ Syringe) 1.5 mls @ 1 mls/min IV QAM [facility] Stop: 09/13/20 08:59 Last Admin: 09/04/20 08:25 Dose: 1 mls/min Documented by: Latanoprost (Latanoprost 0.005% Op Soln 2.5 Ml Btl) 1 drops OP PM [facility] Stop: 10/03/20 20:59 Last Admin: 09/04/20 20:31 Dose: 1 drops Documented by: Magnesium Oxide (Magnesium Oxide 400 Mg Tab) 400 mg PO QPM [facility] Stop: 10/03/20 20:59 Last Admin: 09/04/20 20:29 Dose: 400 mg Documented by: Pantoprazole Sodium (Pantoprazole 40 Mg Tab) [facility] [place] Stop: 10/04/20 08:59 Last Admin: 09/04/20 08:29 Dose: 40 mg Documented by: Polyethylene Glycol (Polyethylene (Miralax) 17 Gm Pack) 17 gm PO DAILY PRN PRN Reason: Constipation Stop: 10/03/20 19:16 Sucralfate (Sucralfate 1 Gm Tab) 1 gm PO [facility] Stop: 10/03/20 20:59 Last Admin: 09/04/20 20:28 Dose: 1 gm Documented by: Tamsulosin HCl (Tamsulosin Hcl 0.4 Mg Cap) 0.4 mg PO QPM [facility] Stop: 10/03/20 20:59 Last Admin: 09/04/20 20:28 Dose: 0.4 mg Documented by: Trazodone HCl (Trazodone Hcl 50 Mg Tab) 50 mg PO [facility] Stop: 10/03/20 20:59 Last Admin: 09/04/20 22:23 Dose: 50 mg Documented by: Ziprasidone (Ziprasidone Hcl 80 Mg Cap) 80 mg PO BID [facility] Stop: 10/03/20 20:59 Last Admin: 09/04/20 20:28 Dose: 80 mg Documented by: PG Care Time/CCT Total # of Minutes Spent Total Time Spent with Patient: Total time spent is greater than 50% in coordination of care (as documented) at patient's floor/unit and/or counseling patient: Coding Level of Care Code 53754 Subseq Hosp Care Lvl 3 Diagnoses Pneumonia due to COVID-19 virus U07.1; J12.82 Acute respiratory failure with hypoxia J96.01 GERD (gastroesophageal reflux disease) K21.9 Depression F32.9 Hypertension I10 DVT prophylaxis Z29.9 Drug dependence F19.20 Neck pain M54.2
[2020-09-05] MEDS: DEXAMETHASONE SOD PHOSPHATE 6 MG in SYRINGE 0 ML IV SCH (09:22)
[2020-09-05] MEDS: CHLORZOXAZONE 500 MG TAB PO SCH ×3 (09:23→20:26)
[2020-09-05] MEDS: AZITHROMYCIN 250 MG TAB PO SCH (09:23)
[2020-09-05] MEDS: busPIRone 5 MG TAB PO SCH ×3 (09:25→20:24)
[2020-09-05] MEDS: buPROPion HCl 100 MG TABLET PO SCH (09:25)
[2020-09-05] MEDS: CITALOPRAM 40 MG TAB PO SCH (09:25)
[2020-09-05] MEDS: GABAPENTIN 400 MG CAP PO SCH ×2 (09:25→20:26)
[2020-09-05] MEDS: CYANOCOBALAMIN (VITAMIN B-12) 2,500 MCG TAB.SUBL SL SCH (09:25)
[2020-09-05] MEDS: ASCORBIC ACID 500 MG TAB PO SCH (09:25)
[2020-09-05] MEDS: PANTOprazole 40 MG TAB PO SCH (09:25)
[2020-09-05] MEDS: ziprasidone HCL 80 MG CAP PO SCH ×2 (09:25→20:25)
[2020-09-05] MEDS: HYDROCODONE/ACETAMINOPHEN 7.5/325MG TAB PO SCH ×3 (09:28→20:34)
[2020-09-05] MEDS: ENOXAPARIN INJ 40 MG/0.4 ML SYR SQ SCH ×2 (09:29→20:23)
[2020-09-05] MEDS: BRIMONIDINE TART 0.2% OP SOLN PER DROP CHARGE OP SCH ×3 (09:30→22:13)
[2020-09-05] MEDS: DORZOLAMIDE HCL 2% OPH SOLN 10 ML BTL OP SCH ×3 (09:30→20:28)
[2020-09-05 11:39] LABS: Hematocrit (blood only) 36.8 % (42-52); Mean Corpuscular Hemoglobin 27.8 pg (25-34); Mean Corpuscular Hgb Conc 32.6 g/dL (32-36); Mean Corpuscular Volume 85.2 fL (80-100); Mean Platelet Volume 8.8 fL (7.4-10.4); Platelet Count 299 K/uL (130-400); RDW Coefficient of Variation 15.3 % (11.5-14.5); RDW Standard Deviation 48.1 fL (36.4-46.3); Red Blood Count 4.32 M/uL (4.7-6.1); White Blood Count 6.88 K/uL (4.8-10.8)
[2020-09-05 11:47] LABS: Albumin Level 2.4 gm/dl (3.4-5.0); Calcium 8.9 mg/dl (8.5-10.1); Est GFR (African American) 102.5; Est GFR (Non-African American) 88.5; Potassium 3.9 mmol/L (3.5-5.1)
[2020-09-05 11:50] LABS: Albumin Globulin Ratio 0.5 (0.9-2); Bilirubin,Total 0.2 mg/dl (0.2-1); Globulin 4.5 gm/dl (2.5-4.0); Total Protein 6.9 gm/dl (6.4-8.2)
[2020-09-05] MEDS: cefTRIAXone SODIUM 2,000 MG in DEXTROSE 5% 50 ML IV SCH (12:51)
[2020-09-05] MEDS: LATANOPROST 0.005% OP SOLN 2.5 ML BTL OP SCH ×2 (14:54→20:28)
[2020-09-05] MEDS: TAMSULOSIN HCL 0.4 MG CAP PO SCH (20:24)
[2020-09-05] MEDS: ASPIRIN 81 MG ECTAB PO SCH (20:24)
[2020-09-05] MEDS: CALCIUM CARBONATE 500 MG CHEWABLE TAB PO SCH (20:25)
[2020-09-05] MEDS: MAGNESIUM OXIDE 400 MG TAB PO SCH (20:27)
[2020-09-05] MEDS: SUCRALFATE 1 GM TAB PO SCH (20:28)
[2020-09-05] MEDS: traZODone HCL 50 MG TAB PO SCH (22:13)
[2020-09-06] MEDS: HYDROCODONE/ACETAMINOPHEN 7.5/325MG TAB PO SCH ×3 (07:57→20:38)
[2020-09-06] MEDS: DORZOLAMIDE HCL 2% OPH SOLN 10 ML BTL OP SCH ×3 (07:58→20:38)
[2020-09-06] MEDS: DEXAMETHASONE SOD PHOSPHATE 6 MG in SYRINGE 0 ML IV SCH (07:59)
[2020-09-06] MEDS: BRIMONIDINE TART 0.2% OP SOLN PER DROP CHARGE OP SCH ×3 (07:59→20:39)
[2020-09-06] MEDS: CITALOPRAM 40 MG TAB PO SCH (08:02)
[2020-09-06] MEDS: buPROPion HCl 100 MG TABLET PO SCH (08:02)
[2020-09-06] MEDS: busPIRone 5 MG TAB PO SCH ×3 (08:02→20:37)
[2020-09-06] MEDS: CHLORZOXAZONE 500 MG TAB PO SCH ×3 (08:02→20:35)
[2020-09-06] MEDS: ziprasidone HCL 80 MG CAP PO SCH ×2 (08:02→20:36)
[2020-09-06] MEDS: PANTOprazole 40 MG TAB PO SCH (08:02)
[2020-09-06] MEDS: ENOXAPARIN INJ 40 MG/0.4 ML SYR SQ SCH ×2 (08:02→20:36)
[2020-09-06] MEDS: AZITHROMYCIN 250 MG TAB PO SCH (08:02)
[2020-09-06] MEDS: GABAPENTIN 400 MG CAP PO SCH ×2 (08:02→20:37)
[2020-09-06] MEDS: ASCORBIC ACID 500 MG TAB PO SCH (08:03)
[2020-09-06] MEDS: CYANOCOBALAMIN (VITAMIN B-12) 2,500 MCG TAB.SUBL SL SCH (08:03)
[2020-09-06] MEDS ORDERED: HYDROmorphone INJ 0.5 MG/0.5 ML SYR IV STA (08:18)
--- NOTE | 2020-09-06 08:52 | Hospitalist Progress Note ---
Date of Service September 06, 2020 Assessment & Plan (1) Pneumonia due to COVID-19 virus: symptoms for about a week prior to admission, was already on dexamethasone received experimental monoclonal antibody at [facility] on 09/03 and he got significantly worse that night brought to [facility] on BIPAP via EMS continue dexamethasone for 10 days, day 4 of this admission out of the window for Remdesivir, plasma continue Rocephin and Zithromax for secondary bacterial coverage for 5 days total, day 4 today supportive care with oxygen, he is down to 6L high flow from wall this morning encourage to lay on his side/prone when possible, stay well nourished will downgrade to medical floor (2) Acute respiratory failure with hypoxia: initially on BIPAP 80% FiO2 via EMS this morning he is stable on 6L wall high flow, no distress, no accessory muscles try to wean back oxygen further CT chest was negative for PE downgrade to medical floor, encourage to sit OOB in chair BID (3) GERD (gastroesophageal reflux disease): Continue pantoprazole 40mg PO daily (4) Depression: Continue his usual medications with Wellbutrin, citalopram, buspirone and ziprasidone. mood is stable, he is optimistic about getting better (5) Hypertension: BP stable today could be degree of withdrawal when BP goes up as his states he takes more hydrocodone than prescribed use Hydralazine PRN for SBP > 180 (6) DVT prophylaxis: (7) Drug dependence: continue on Hydrocodone 7.5mg TID, his family reports he takes more than prescribed continue Paraflex BID (8) Neck pain: stable on Hydrocodone and Paraflex (9) Diarrhea: loose stools a few times a day add Imodium, Probiotics likely related to COVID check C diff Admission and Anticipated Discharge Date Admission Date: September 03, 2020 Subjective patient doing well, breathing well on 6L, no distress at all eating well, c/o diarrhea a few times a day, will try Imodium and probiotics no labs today no chest pain, no cough, no fever/chills, no nausea will move up to the third floor he says he has some back pain despite the Henderson 7.5mg, will try a dose of Dilaudid 0.5mg IV now Review of Systems Review of Systems: All systems reviewed & are unremarkable except as noted in Subjective Physical Exam Constitutional: well developed, well nourished and + ill appearing; no acute distress Neck: trachea midline, no thyromegaly Respiratory: normal respiratory effort, + cough and + tachypneic; no respiratory distress, no labored breathing and does not use accessory muscles Auscultation: lungs clear to auscultation bilaterally Cardiovascular: RRR, no murmur, no edema Gastrointestinal (Abdomen): normal bowel sounds, soft, nontender, no hepatosplenomegaly Musculoskeletal: no cyanosis or clubbing, extremities motor strength 5/5 Skin: no rashes, warm and dry Neurologic: patellar DTR's 2+ bilat, sensation intact and PERRL, EOMI, accommodation nl, no face palsy, no dysarthria Psychiatric: A+Ox3, euthymic affect Lymphatic: no cervical or axillary lymphadenopathy Results & Data Results & Data ([facility]) Vital Signs (Past 12 Hours) Vital Signs Temp Pulse Resp BP Pulse Ox 09/06/20 08:09 124/107 H 09/06/20 07:04 36.5 C 81 35 H 180/86 H 91 09/06/20 05:21 175/95 H 09/06/20 05:12 191/110 H 09/06/20 05:07 28 H 266/133 H 91 09/06/20 04:27 96 09/06/20 04:26 84 L 09/06/20 03:29 37.0 C 73 18 186/86 H 95 09/06/20 00:04 95 09/05/20 23:19 36.6 C 70 24 179/95 H 98 Medications Administered Current Inpatient Medications Acetaminophen (Acetaminophen 325 Mg Tab) 650 mg PO Q4H PRN PRN Reason: Pain or Fever Stop: 10/03/20 19:16 Hydrocodone Bitart/Acetaminophen (Hydrocodone/Acetaminophen 7.5/325mg Tab) 1 tab PO TID [facility] Stop: 09/17/20 19:16 Last Admin: 09/06/20 07:57 Dose: 1 tab Documented by: Al Hydrox/Mg Hydrox/Simethicone (Aluminum/Magnesium Susp 30 Ml Udc) 15 ml PO Q4H PRN PRN Reason: Dyspepsia Stop: 10/03/20 19:16 Ascorbic Acid (Ascorbic Acid 500 Mg Tab) 500 mg PO QAM [facility] Stop: 10/04/20 08:59 Last Admin: 09/06/20 08:03 Dose: 500 mg Documented by: Aspirin (Aspirin 81 Mg Ectab) 81 mg PO HS [facility] Stop: 10/03/20 20:59 Last Admin: 09/05/20 20:24 Dose: 81 mg Documented by: Azithromycin (Azithromycin 250 Mg Tab) [facility]: 09/08/20 08:59 Last Admin: 09/06/20 08:02 Dose: 250 mg Documented by: Brimonidine Tartrate (Brimonidine Tart 0.2% Op Soln Per Drop Charge) 1 drops OP TID [facility] Stop: 10/03/20 19:16 Last Admin: 09/06/20 07:59 Dose: 1 drops Documented by: Bupropion HCl (Bupropion Hcl 100 Mg Tablet) 100 mg PO [facility] Stop: 10/04/20 08:59 Last Admin: 09/06/20 08:02 Dose: 100 mg Documented by: Buspirone HCl (Buspirone 5 Mg Tab) 5 mg PO TID [facility] Stop: 10/03/20 19:16 Last Admin: 09/06/20 08:02 Dose: 5 mg Documented by: Calcium Carbonate (Calcium Carbonate 500 Mg Chewable Tab) 500 mg PO QPM [facility] Stop: 10/03/20 20:59 Last Admin: 09/05/20 20:25 Dose: 500 mg Documented by: Chlorzoxazone (Chlorzoxazone 500 Mg Tab) 750 mg PO TID [facility] Stop: 10/03/20 19:16 Last Admin: 09/06/20 08:02 Dose: 750 mg Documented by: Citalopram Hydrobromide (Citalopram 40 Mg Tab) 40 mg PO [facility] Stop: 10/04/20 08:59 Last Admin: 09/06/20 08:02 Dose: 40 mg Documented by: Cyanocobalamin (Cyanocobalamin (Vitamin B-12) 2,500 Mcg Tab.Subl) 2,500 mcg SL [facility] Stop: 10/04/20 08:59 Last Admin: 09/06/20 08:03 Dose: 2,500 mcg Documented by: Dorzolamide HCl (Dorzolamide Hcl 2% Oph Soln 10 Ml Btl) 1 drops OP TID [facility] Stop: 10/03/20 19:16 Last Admin: 09/06/20 07:58 Dose: 1 drops Documented by: Enoxaparin Sodium (Enoxaparin Inj 40 Mg/0.4 Ml Syr) 40 mg SQ BID [facility] Stop: 10/04/20 20:59 Last Admin: 09/06/20 08:02 Dose: 40 mg Documented by: Gabapentin (Gabapentin 400 Mg Cap) 400 mg PO BID [facility] Stop: 10/03/20 20:59 Last Admin: 09/06/20 08:02 Dose: 400 mg Documented by: Hydralazine HCl (Hydralazine Hcl 20 Mg/Ml Vial) 10 mg IV Q6H PRN PRN Reason: Hypertension Stop: 10/05/20 08:55 Last Admin: 09/06/20 04:31 Dose: 10 mg Documented by: Ceftriaxone Sodium 2,000 mg/ (Dextrose) 70 mls @ 140 mls/hr IV Q24H [facility] Stop: 09/10/20 11:59 Last Infusion: 09/05/20 13:42 Dose: Infused Documented by: Dexamethasone Sodium Phosphate (6 mg/ Syringe) 1.5 mls @ 1 mls/min IV QAM [facility] Stop: 09/13/20 08:59 Last Admin: 09/06/20 07:59 Dose: 1 mls/min Documented by: Latanoprost (Latanoprost 0.005% Op Soln 2.5 Ml Btl) 1 drops OP PM [facility] Stop: 10/03/20 20:59 Last Admin: 09/05/20 20:28 Dose: 1 drops Documented by: Magnesium Oxide (Magnesium Oxide 400 Mg Tab) 400 mg PO QPM [facility] Stop: 10/03/20 20:59 Last Admin: 09/05/20 20:27 Dose: 400 mg Documented by: Pantoprazole Sodium (Pantoprazole 40 Mg Tab) 40 mg PO QAM [facility] Stop: 10/04/20 08:59 Last Admin: 09/06/20 08:02 Dose: 40 mg Documented by: Polyethylene Glycol (Polyethylene (Miralax) 17 Gm Pack) 17 gm PO DAILY PRN PRN Reason: Constipation Stop: 10/03/20 19:16 Sucralfate (Sucralfate 1 Gm Tab) 1 gm PO HS [facility] Stop: 10/03/20 20:59 Last Admin: 09/05/20 20:28 Dose: 1 gm Documented by: Tamsulosin HCl (Tamsulosin Hcl 0.4 Mg Cap) 0.4 mg PO QPM [facility] Stop: 10/03/20 20:59 Last Admin: 09/05/20 20:24 Dose: 0.4 mg Documented by: Trazodone HCl (Trazodone Hcl 50 Mg Tab) 50 mg PO HS [facility] Stop: 10/03/20 20:59 Last Admin: 09/05/20 22:13 Dose: 50 mg Documented by: Ziprasidone (Ziprasidone Hcl 80 Mg Cap) 80 mg PO BID [facility] Stop: 10/03/20 20:59 Last Admin: 09/06/20 08:02 Dose: 80 mg Documented by: PG Care Time/CCT Total # of Minutes Spent Total Time Spent with Patient: Total time spent is greater than 50% in coordination of care (as documented) at patient's floor/unit and/or counseling patient: Coding Level of Care Code 12298 Subseq Hosp Care Lvl 2 Diagnoses Pneumonia due to COVID-19 virus U07.1; J12.82 Acute respiratory failure with hypoxia J96.01 GERD (gastroesophageal reflux disease) K21.9 Depression F32.9 Hypertension I10 DVT prophylaxis Z29.9 Drug dependence F19.20 Neck pain M54.2 Diarrhea R19.7
[2020-09-06] MEDS ORDERED: LOPERAMIDE HCL 2 MG CAP PO PRN (09:04)
[2020-09-06] MEDS: SACCHAROMYCES BOULARDII 250 MG CAP PO SCH (12:05)
[2020-09-06] MEDS: cefTRIAXone SODIUM 2,000 MG in DEXTROSE 5% 50 ML IV SCH (12:05)
[2020-09-06] MEDS: SUCRALFATE 1 GM TAB PO SCH (20:36)
[2020-09-06] MEDS: TAMSULOSIN HCL 0.4 MG CAP PO SCH (20:36)
[2020-09-06] MEDS: ASPIRIN 81 MG ECTAB PO SCH (20:37)
[2020-09-06] MEDS: CALCIUM CARBONATE 500 MG CHEWABLE TAB PO SCH (20:38)
[2020-09-06] MEDS: traZODone HCL 50 MG TAB PO SCH (20:38)
[2020-09-06] MEDS: MAGNESIUM OXIDE 400 MG TAB PO SCH (20:39)
[2020-09-06] MEDS ORDERED: MELATONIN 3 MG TAB PO PRN (22:10)
[2020-09-07] MEDS: busPIRone 5 MG TAB PO SCH ×3 (07:55→20:11)
[2020-09-07] MEDS: GABAPENTIN 400 MG CAP PO SCH ×2 (07:55→20:11)
[2020-09-07] MEDS: HYDROCODONE/ACETAMINOPHEN 7.5/325MG TAB PO SCH ×3 (07:55→20:08)
[2020-09-07] MEDS: buPROPion HCl 100 MG TABLET PO SCH (07:55)
[2020-09-07] MEDS: CHLORZOXAZONE 500 MG TAB PO SCH ×3 (07:56→20:10)
[2020-09-07] MEDS: ASCORBIC ACID 500 MG TAB PO SCH (07:57)
[2020-09-07] MEDS: PANTOprazole 40 MG TAB PO SCH (07:57)
[2020-09-07] MEDS: SACCHAROMYCES BOULARDII 250 MG CAP PO SCH (07:57)
[2020-09-07] MEDS: AZITHROMYCIN 250 MG TAB PO SCH (07:57)
[2020-09-07] MEDS: CYANOCOBALAMIN (VITAMIN B-12) 2,500 MCG TAB.SUBL SL SCH (07:58)
[2020-09-07] MEDS: ziprasidone HCL 80 MG CAP PO SCH ×2 (07:58→20:11)
[2020-09-07] MEDS: CITALOPRAM 40 MG TAB PO SCH (07:58)
[2020-09-07] MEDS: ENOXAPARIN INJ 40 MG/0.4 ML SYR SQ SCH ×2 (07:59→20:10)
[2020-09-07] MEDS: BRIMONIDINE TART 0.2% OP SOLN PER DROP CHARGE OP SCH ×3 (07:59→20:11)
[2020-09-07] MEDS: DORZOLAMIDE HCL 2% OPH SOLN 10 ML BTL OP SCH ×3 (07:59→20:09)
[2020-09-07] MEDS: DEXAMETHASONE SOD PHOSPHATE 6 MG in SYRINGE 0 ML IV SCH (09:38)
--- NOTE | 2020-09-07 12:50 | Hospitalist Progress Note ---
Date of Service September 07, 2020 Assessment & Plan (1) Pneumonia due to COVID-19 virus: symptoms for about a week prior to admission, was already on dexamethasone received experimental monoclonal antibody at [facility] on 09/03 and he got significantly worse that night brought to [facility] on BIPAP via EMS continue dexamethasone for 10 days, day 5 out of the window for Remdesivir, plasma completed 5 days of Rocephin and Zithromax on 09/07 for secondary bacterial coverage, no fever, cough non-productive supportive care with oxygen, he is down to 5L high flow from wall this morning encourage to lay on his side/prone when possible, stay well nourished anticipate several more days in the hospital (2) Acute respiratory failure with hypoxia: initially on BIPAP 80% FiO2 via EMS this morning he is stable on 5L wall high flow, no distress, no accessory muscles try to wean back oxygen further CT chest was negative for PE encourage to sit OOB in chair BID (3) GERD (gastroesophageal reflux disease): Continue pantoprazole 40mg PO daily (4) Depression: Continue his usual medications with Wellbutrin, citalopram, buspirone and ziprasidone. mood is stable, he is optimistic about getting better (5) Hypertension: BP stable today could be degree of withdrawal when BP goes up as his states he takes more hydrocodone than prescribed use Hydralazine PRN for SBP > 180 (6) Diarrhea: improving, C diff negative use Imodium PRN and started on probiotic (7) Low back pain: continue Paraflex and Hydrocodone, home dosing Dilaudid 0.5mg IV PRN for breakthrough pain to help him rest (8) DVT prophylaxis: Lovenox 40mg SQ BID Admission and Anticipated Discharge Date Admission Date: September 03, 2020 Subjective patient doing really well, down to 5L, no respiratory distress main complaint is low back pain, ongoing issue, offered him Dilaudid 0.5mg q8 PRN, continue the Hydrocodone his diarrhea is resolving, C diff was negative he is eating and drinking well, no fever, no chest pain, no nausea Review of Systems Review of Systems: All systems reviewed & are unremarkable except as noted in Subjective Respiratory: + cough and + dyspnea on exertion Gastrointestinal: + diarrhea/loose stools (improving) Musculoskeletal: + back pain Physical Exam Constitutional: well developed and well nourished; no acute distress Neck: trachea midline, no thyromegaly Respiratory: normal respiratory effort and + cough; no respiratory distress and does not use accessory muscles Auscultation: lungs clear to auscultation bilaterally Cardiovascular: RRR, no murmur, no edema Gastrointestinal (Abdomen): normal bowel sounds, soft, nontender, no hepatosplenomegaly Musculoskeletal: no cyanosis or clubbing, extremities motor strength 5/5 Skin: no rashes, warm and dry Neurologic: patellar DTR's 2+ bilat, sensation intact and PERRL, EOMI, accommodation nl, no face palsy, no dysarthria Psychiatric: A+Ox3, euthymic affect Lymphatic: no cervical or axillary lymphadenopathy Results & Data Results & Data ([facility]) Vital Signs (Past 12 Hours) Vital Signs Temp Pulse Resp BP Pulse Ox Pulse Ox 09/07/20 09:41 97 09/07/20 07:39 36.5 C 81 19 172/90 H 97 Laboratory Results Laboratory Results - last 24 hr 09/07/20 08:20 Stl C. diff Tox B Gene Negative Cdiff Gene Medications Administered Current Inpatient Medications Acetaminophen (Acetaminophen 325 Mg Tab) 650 mg PO Q4H PRN PRN Reason: Pain or Fever Stop: 10/03/20 19:16 Hydrocodone Bitart/Acetaminophen (Hydrocodone/Acetaminophen 7.5/325mg Tab) 1 tab PO TID [facility] Stop: 09/17/20 19:16 Last Admin: 09/07/20 07:55 Dose: 1 tab Documented by: Al Hydrox/Mg Hydrox/Simethicone (Aluminum/Magnesium Susp 30 Ml Udc) 15 ml PO Q4H PRN PRN Reason: Dyspepsia Stop: 10/03/20 19:16 Ascorbic Acid (Ascorbic Acid 500 Mg Tab) 500 mg PO QAM [facility] Stop: 10/04/20 08:59 Last Admin: 09/07/20 07:57 Dose: 500 mg Documented by: Aspirin (Aspirin 81 Mg Ectab) 81 mg PO HS [facility] Stop: 10/03/20 20:59 Last Admin: 09/06/20 20:37 Dose: 81 mg Documented by: Azithromycin (Azithromycin 250 Mg Tab) 250 mg PO QAM [facility] Stop: 09/08/20 08:59 Last Admin: 09/07/20 07:57 Dose: 250 mg Documented by: Brimonidine Tartrate (Brimonidine Tart 0.2% Op Soln Per Drop Charge) 1 drops OP TID [facility] Stop: 10/03/20 19:16 Last Admin: 09/07/20 07:59 Dose: 1 drops Documented by: Bupropion HCl (Bupropion Hcl 100 Mg Tablet) 100 mg PO QAM [facility] Stop: 10/04/20 08:59 Last Admin: 09/07/20 07:55 Dose: 100 mg Documented by: Buspirone HCl (Buspirone 5 Mg Tab) 5 mg PO TID [facility] Stop: 10/03/20 19:16 Last Admin: 09/07/20 07:55 Dose: 5 mg Documented by: Calcium Carbonate (Calcium Carbonate 500 Mg Chewable Tab) 500 mg PO QPM [facility] Stop: 10/03/20 20:59 Last Admin: 09/06/20 20:38 Dose: 500 mg Documented by: Chlorzoxazone (Chlorzoxazone 500 Mg Tab) 750 mg PO TID [facility] Stop: 10/03/20 19:16 Last Admin: 09/07/20 07:56 Dose: 750 mg Documented by: Citalopram Hydrobromide (Citalopram 40 Mg Tab) 40 mg PO QAM [facility] Stop: 10/04/20 08:59 Last Admin: 09/07/20 07:58 Dose: 40 mg Documented by: Cyanocobalamin (Cyanocobalamin (Vitamin B-12) 2,500 Mcg Tab.Subl) 2,500 mcg SL QAM [facility] Stop: 10/04/20 08:59 Last Admin: 09/07/20 07:58 Dose: 2,500 mcg Documented by: Dorzolamide HCl (Dorzolamide Hcl 2% Oph Soln 10 Ml Btl) 1 drops OP TID [facility] Stop: 10/03/20 19:16 Last Admin: 09/07/20 07:59 Dose: 1 drops Documented by: Enoxaparin Sodium (Enoxaparin Inj 40 Mg/0.4 Ml Syr) 40 mg SQ BID [facility] Stop: 10/04/20 20:59 Last Admin: 09/07/20 07:59 Dose: 40 mg Documented by: Gabapentin (Gabapentin 400 Mg Cap) 400 mg PO BID [facility] Stop: 10/03/20 20:59 Last Admin: 09/07/20 07:55 Dose: 400 mg Documented by: Hydralazine HCl (Hydralazine Hcl 20 Mg/Ml Vial) 10 mg IV Q6H PRN PRN Reason: Hypertension Stop: 10/05/20 08:55 Last Admin: 09/06/20 04:31 Dose: 10 mg Documented by: Ceftriaxone Sodium 2,000 mg/ (Dextrose) 70 mls @ 140 mls/hr IV Q24H [facility] Stop: 09/10/20 11:59 Last Infusion: 09/06/20 12:43 Dose: Infused Documented by: Dexamethasone Sodium Phosphate (6 mg/ Syringe) 1.5 mls @ 1 mls/min IV QAM [facility] Stop: 09/13/20 08:59 Last Admin: 09/07/20 09:38 Dose: 1 mls/min Documented by: Latanoprost (Latanoprost 0.005% Op Soln 2.5 Ml Btl) 1 drops OP PM [facility] Stop: 10/03/20 20:59 Last Admin: 09/05/20 20:28 Dose: 1 drops Documented by: Loperamide HCl (Loperamide Hcl 2 Mg Cap) 2 mg PO Q6 PRN PRN Reason: Diarrhea Stop: 10/06/20 09:03 Magnesium Oxide (Magnesium Oxide 400 Mg Tab) 400 mg PO QPM [facility] Stop: 10/03/20 20:59 Last Admin: 09/06/20 20:39 Dose: 400 mg Documented by: Melatonin (Melatonin 3 Mg Tab) 3 mg PO HS PRN PRN Reason: Sleep Stop: 10/06/20 22:09 Pantoprazole Sodium (Pantoprazole 40 Mg Tab) 40 mg PO QAM [facility] Stop: 10/04/20 08:59 Last Admin: 09/07/20 07:57 Dose: 40 mg Documented by: Saccharomyces Boulardii (Saccharomyces Boulardii 250 Mg Cap) 250 mg PO DAILY [facility] Stop: 10/06/20 09:14 Last Admin: 09/07/20 07:57 Dose: 250 mg Documented by: Sucralfate (Sucralfate 1 Gm Tab) 1 gm PO HS [facility] Stop: 10/03/20 20:59 Last Admin: 09/06/20 20:36 Dose: 1 gm Documented by: Tamsulosin HCl (Tamsulosin Hcl 0.4 Mg Cap) 0.4 mg PO QPM [facility] Stop: 10/03/20 20:59 Last Admin: 09/06/20 20:36 Dose: 0.4 mg Documented by: Trazodone HCl (Trazodone Hcl 50 Mg Tab) 50 mg PO HS [facility] Stop: 10/03/20 20:59 Last Admin: 09/06/20 20:38 Dose: 50 mg Documented by: Ziprasidone (Ziprasidone Hcl 80 Mg Cap) 80 mg PO BID [facility] Stop: 10/03/20 20:59 Last Admin: 09/07/20 07:58 Dose: 80 mg Documented by: PG Care Time/CCT Total # of Minutes Spent Total Time Spent with Patient: Total time spent is greater than 50% in coordination of care (as documented) at patient's floor/unit and/or counseling patient: Coding Level of Care Code 47846 Subseq Hosp Care Lvl 3 Diagnoses Pneumonia due to COVID-19 virus U07.1; J12.82 Acute respiratory failure with hypoxia J96.01 GERD (gastroesophageal reflux disease) K21.9 Depression F32.9 Hypertension I10 Diarrhea R19.7 Low back pain M54.5 DVT prophylaxis Z29.9
[2020-09-07] MEDS: cefTRIAXone SODIUM 2,000 MG in DEXTROSE 5% 50 ML IV SCH (12:52)
[2020-09-07] MEDS: HYDROmorphone INJ 0.5 MG/0.5 ML SYR IV PRN ×2 (13:53→23:44)
--- NOTE | 2020-09-07 20:06 | Electrocardiogram Report ---
Test Reason : Blood Pressure : / mmHG Vent. Rate : 080 BPM Atrial Rate : 080 BPM P-R Int : 136 ms QRS Dur : 086 ms QT Int : 402 ms P-R-T Axes : 055 004 046 degrees QTc Int : 463 ms Normal sinus rhythm with sinus arrhythmia When compared with ECG of 03-SEP-2020 11:39, No significant change was found Confirmed by Woody Bolton ([id number]) on 09/07/2020 8:06:15 PM Referred By: REFERRED SELF Confirmed By:Joey Bolton
[2020-09-07] MEDS: traZODone HCL 50 MG TAB PO SCH (20:08)
[2020-09-07] MEDS: CALCIUM CARBONATE 500 MG CHEWABLE TAB PO SCH (20:08)
[2020-09-07] MEDS: LATANOPROST 0.005% OP SOLN 2.5 ML BTL OP SCH (20:10)
[2020-09-07] MEDS: ASPIRIN 81 MG ECTAB PO SCH (20:11)
[2020-09-07] MEDS: MAGNESIUM OXIDE 400 MG TAB PO SCH (20:11)
[2020-09-07] MEDS: TAMSULOSIN HCL 0.4 MG CAP PO SCH (20:11)
[2020-09-07] MEDS: SUCRALFATE 1 GM TAB PO SCH (20:11)
[2020-09-08] MEDS: DORZOLAMIDE HCL 2% OPH SOLN 10 ML BTL OP SCH ×3 (07:44→21:34)
[2020-09-08] MEDS: BRIMONIDINE TART 0.2% OP SOLN PER DROP CHARGE OP SCH ×3 (07:44→21:34)
[2020-09-08] MEDS: GABAPENTIN 400 MG CAP PO SCH ×2 (07:45→21:37)
[2020-09-08] MEDS: CITALOPRAM 40 MG TAB PO SCH (07:45)
[2020-09-08] MEDS: CHLORZOXAZONE 500 MG TAB PO SCH ×3 (07:45→21:38)
[2020-09-08] MEDS: CYANOCOBALAMIN (VITAMIN B-12) 2,500 MCG TAB.SUBL SL SCH (07:45)
[2020-09-08] MEDS: DEXAMETHASONE SOD PHOSPHATE 6 MG in SYRINGE 0 ML IV SCH (07:46)
[2020-09-08] MEDS: buPROPion HCl 100 MG TABLET PO SCH (07:46)
[2020-09-08] MEDS: ENOXAPARIN INJ 40 MG/0.4 ML SYR SQ SCH ×2 (07:46→21:40)
[2020-09-08] MEDS: PANTOprazole 40 MG TAB PO SCH (07:46)
[2020-09-08] MEDS: HYDROCODONE/ACETAMINOPHEN 7.5/325MG TAB PO SCH ×3 (07:46→21:35)
[2020-09-08] MEDS: ziprasidone HCL 80 MG CAP PO SCH ×2 (07:46→21:39)
[2020-09-08] MEDS: busPIRone 5 MG TAB PO SCH ×3 (07:46→21:36)
[2020-09-08] MEDS: SACCHAROMYCES BOULARDII 250 MG CAP PO SCH (07:46)
[2020-09-08] MEDS: ASCORBIC ACID 500 MG TAB PO SCH (07:46)
[2020-09-08] MEDS: LIDOCAINE 5% 1 PATCH TD SCH (08:05)
[2020-09-08 10:32] LABS: Hematocrit (blood only) 36.6 % (42-52); Hemoglobin 11.7 g/dL (14.0-18.0); Mean Corpuscular Hemoglobin 27.8 pg (25-34); Mean Corpuscular Volume 86.9 fL (80-100); Mean Platelet Volume 8.8 fL (7.4-10.4); Platelet Count 347 K/uL (130-400); RDW Coefficient of Variation 15.6 % (11.5-14.5); RDW Standard Deviation 50.1 fL (36.4-46.3); Red Blood Count 4.21 M/uL (4.7-6.1); White Blood Count 9.37 K/uL (4.8-10.8)
[2020-09-08 10:56] LABS: D Dimer 3430 ug/L FEU (0-500)
[2020-09-08] MEDS: cefTRIAXone SODIUM 2,000 MG in DEXTROSE 5% 50 ML IV SCH (11:03)
[2020-09-08 11:10] LABS: Albumin Level 2.4 gm/dl (3.4-5.0); BUN Creatinine Ratio 25.8 (10-20); Calcium 8.9 mg/dl (8.5-10.1); Creatinine Clr Calc Pharmacy 91.1 ml/min; Est GFR (African American) 103.5; Est GFR (Non-African American) 89.3; Magnesium 2.2 mg/dl (1.8-2.4)
[2020-09-08] MEDS: HYDROmorphone INJ 0.5 MG/0.5 ML SYR IV PRN ×2 (11:10→19:01)
[2020-09-08 11:13] LABS: Albumin Globulin Ratio 0.5 (0.9-2); Bilirubin,Total 0.3 mg/dl (0.2-1); Globulin 4.4 gm/dl (2.5-4.0); Total Protein 6.8 gm/dl (6.4-8.2)
--- NOTE | 2020-09-08 19:04 | Hospitalist Progress Note ---
Date of Service September 08, 2020 Assessment & Plan (1) Pneumonia due to COVID-19 virus: Clinically improving/resolving. Symptoms began 1 week before admission. s/p experimental monoclonal antibody at [facility] on 09/03 but clinically worsened following such. Was also on solumedrol prior to admission to [facility]. Continue dexamethasone for 10 days; today is day #6 of 10. Remdesivir, plasma deferred. s/p 5 days of Rocephin and Zithromax. Complete 2 more days of rocephin then d/c. Had been on BIPAP - now 4 L NC O2. Cont supportive care and pulmonary toilet. Cont to wean NC O2. (2) Acute respiratory failure with hypoxia: 2nd to COVID pneumonia. CT chest was negative for PE. See above. Dimer noted today. (3) GERD (gastroesophageal reflux disease): Continue pantoprazole 40mg PO daily (4) Depression: Continue his usual medications with Wellbutrin, citalopram, buspirone and ziprasidone. (5) Hypertension: BPs quite high - steroid effect? consider initiating anti-hypertensives. (6) Diarrhea: improving, C diff negative likely abx-associated diarrhea add lactinex (7) Low back pain: continue Paraflex and Hydrocodone, home dosing stop dilaudid (8) Abnormal LFTs: 2nd to COVID? trend consider HepB/C testing HepC was neg in 2019 at [facility] however (9) DVT prophylaxis: Lovenox 40mg SQ BID left message for today progressing dispo planning Admission and Anticipated Discharge Date Admission Date: September 03, 2020 Subjective patient feeling "really well" despite having O2 requirement. denies any dyspnea, cough, chest pain, abd pain. no nausea/emesis/diarrhea. eating well. he expresses concern about his weakness, however, and needing to "get out of bed." Review of Systems Constitutional: + weakness; no fever, no chills, no fatigue and no anorexia Respiratory: no cough, no dyspnea and no snoring Cardiovascular: no chest pain Gastrointestinal: no abdominal pain, no nausea and no vomiting Physical Exam Constitutional: well developed and well nourished; no acute distress and no altered mental status ENMT: external ear and nose normal, oropharynx normal Respiratory: Auscultation: + diminished lung sounds (minimal bases ) and + rales (minimal bases) Cardiovascular: Rate/Rhythm: regular rate and regular rhythm Heart Sounds: normal S1 and normal S2; no murmur Vessels: posterior tibial pulses present and dorsalis pedis pulses present; no JVD Gastrointestinal (Abdomen): normal bowel sounds, soft, nontender, no hepatosplenomegaly Psychiatric: A+Ox3, euthymic affect Results & Data Results & Data ([facility]) Vital Signs (Past 12 Hours) Vital Signs Temp Pulse Resp BP Pulse Ox 09/08/20 16:16 95 09/08/20 15:18 36.6 C 82 18 151/88 H 93 09/08/20 07:22 37 C 98 H 19 152/72 H 99 Laboratory Results Laboratory Results - last 24 hr 09/08/20 09/08/20 09/08/20 10:07 10:07 10:07 WBC 9.37 RBC 4.21 L Hgb 11.7 L Hct 36.6 L MCV 86.9 MCH 27.8 MCHC 32.0 RDW Std Deviation 50.1 H RDW Coeff of Timbo 15.6 H Plt Count 347 MPV 8.8 D-Dimer 3430 H* Sodium 141 Potassium 4.0 Chloride 109 H Carbon Dioxide 25 Anion Gap 6.0 BUN 22 H Creatinine 0.84 Est Cr Clr Drug Dosing 91.1 Est GFR ( Amer) 103.5 Est GFR (Non-Af Amer) 89.3 BUN/Creatinine Ratio 25.8 H Glucose 109 H Calcium 8.9 Magnesium 2.2 Total Bilirubin 0.3 AST 50 H ALT 81 H Alkaline Phosphatase 133 H Total Protein 6.8 Albumin 2.4 L Globulin 4.4 H Albumin/Globulin Ratio 0.5 L Procalcitonin 09/08/20 10:07 WBC RBC Hgb Hct MCV MCH MCHC RDW Std Deviation RDW Coeff of Timbo Plt Count MPV D-Dimer Sodium Potassium Chloride Carbon Dioxide Anion Gap BUN Creatinine Est Cr Clr Drug Dosing Est GFR ( Amer) Est GFR (Non-Af Amer) BUN/Creatinine Ratio Glucose Calcium Magnesium Total Bilirubin AST ALT Alkaline Phosphatase Total Protein Albumin Globulin Albumin/Globulin Ratio Procalcitonin 0.22 PG Care Time/CCT Total # of Minutes Spent Total Time Spent with Patient: Total time spent is greater than 50% in coordination of care (as documented) at patient's floor/unit and/or counseling patient: Coding Level of Care Code 69949 Subseq Hosp Care Lvl 2 Diagnoses Pneumonia due to COVID-19 virus U07.1; J12.82 Acute respiratory failure with hypoxia J96.01 GERD (gastroesophageal reflux disease) K21.9 Esophagitis presence: without esophagitis Depression F32.9 Hypertension I10 Diarrhea R19.7 Low back pain M54.5 Abnormal LFTs R94.5 DVT prophylaxis Z29.9 (1) GERD (gastroesophageal reflux disease) Esophagitis presence: without esophagitis Qualified Code(s): K21.9 - Gastro- esophageal reflux disease without esophagitis
[2020-09-08] MEDS: LATANOPROST 0.005% OP SOLN 2.5 ML BTL OP SCH (21:34)
[2020-09-08] MEDS: CALCIUM CARBONATE 500 MG CHEWABLE TAB PO SCH (21:36)
[2020-09-08] MEDS: ASPIRIN 81 MG ECTAB PO SCH (21:38)
[2020-09-08] MEDS: TAMSULOSIN HCL 0.4 MG CAP PO SCH (21:38)
[2020-09-08] MEDS: SUCRALFATE 1 GM TAB PO SCH (21:39)
[2020-09-08] MEDS: MAGNESIUM OXIDE 400 MG TAB PO SCH (21:39)
[2020-09-08] MEDS: traZODone HCL 50 MG TAB PO SCH (21:45)
[2020-09-09] MEDS: HYDROmorphone INJ 0.5 MG/0.5 ML SYR IV PRN (06:06)
[2020-09-09] MEDS: DORZOLAMIDE HCL 2% OPH SOLN 10 ML BTL OP SCH ×2 (07:37→13:43)
[2020-09-09] MEDS: BRIMONIDINE TART 0.2% OP SOLN PER DROP CHARGE OP SCH ×2 (07:38→13:43)
[2020-09-09] MEDS: LIDOCAINE 5% 1 PATCH TD SCH (07:38)
[2020-09-09] MEDS: ENOXAPARIN INJ 40 MG/0.4 ML SYR SQ SCH (07:38)
[2020-09-09] MEDS: DEXAMETHASONE SOD PHOSPHATE 6 MG in SYRINGE 0 ML IV SCH (07:38)
[2020-09-09] MEDS: PANTOprazole 40 MG TAB PO SCH (07:39)
[2020-09-09] MEDS: CHLORZOXAZONE 500 MG TAB PO SCH ×2 (07:39→13:41)
[2020-09-09] MEDS: buPROPion HCl 100 MG TABLET PO SCH (07:39)
[2020-09-09] MEDS: busPIRone 5 MG TAB PO SCH ×2 (07:39→13:41)
[2020-09-09] MEDS: HYDROCODONE/ACETAMINOPHEN 7.5/325MG TAB PO SCH (07:39)
[2020-09-09] MEDS: GABAPENTIN 400 MG CAP PO SCH (07:39)
[2020-09-09] MEDS: SACCHAROMYCES BOULARDII 250 MG CAP PO SCH (07:39)
[2020-09-09] MEDS: ziprasidone HCL 80 MG CAP PO SCH (07:39)
[2020-09-09] MEDS: CYANOCOBALAMIN (VITAMIN B-12) 2,500 MCG TAB.SUBL SL SCH (07:39)
[2020-09-09] MEDS: CITALOPRAM 40 MG TAB PO SCH (07:39)
[2020-09-09] MEDS: ASCORBIC ACID 500 MG TAB PO SCH (07:40)
[2020-09-09] MEDS ORDERED: HYDROcodone/ACETAMINOPHEN 10/325 TAB PO PRN (09:50)
[2020-09-09] MEDS: cefTRIAXone SODIUM 2,000 MG in DEXTROSE 5% 50 ML IV SCH (11:48)
--- NOTE | 2020-09-09 13:59 | Discharge Summary ---
Date of Service date of admission - September 03, 2020 date of discharge - September 09, 2020 Admission HPI Per Admitting Provider Brennan Saunders is a 69-year-old male with known COVID-19 pneumonia who presents to the ER via EMS from home with shortness of breath and bilateral lower extremity weakness since yesterday. Yesterday he received the experimental monoclonal antibody bamlanivimab at a clinic in [place] and felt much worse following this. He became progressively more short of breath to the point of this morning he was unable to get off the bed with bilateral lower extremity weakness therefore his called for an ambulance. He tested positive for COVID-19 6 days previously in [place]. Positive exposure with his son on August 22 who subsequently tested positive for Covid and the patient has had generalized symptoms since then with fatigue. He does not usually wear oxygen at home. No chest pain. Symptoms include: Fever, chills (today only), shortness of breath, non- productive cough, fatigue, nasal congestion. He denies any loss of taste or smell, myalgias, headache, sore throat, diarrhea, nausea/vomiting, confusion, chest or abdominal pain. Per EMS O2 sats were 60% on room air. This improved to 94% on BiPAP with FiO2 80%. Chest x-ray concerning for extensive bilateral airspace opacities with interstitial thickening and small right pleural effusion. He was referred to medicine for admission and ongoing management of Covid 19, hypoxia, pleural ef fusion. Principal Diagnosis Acute hypoxic respiratory failure 2nd to COVID-19 pneumonia Discharge Exam Constitutional well developed and well nourished; no acute distress and no altered mental status ENMT external ear and nose normal, oropharynx normal Respiratory Auscultation: + diminished lung sounds (minimal bases ) and + rales (minimal bases) Cardiovascular Rate/Rhythm: regular rate and regular rhythm Heart Sounds: normal S1 and normal S2; no murmur Vessels: posterior tibial pulses present and dorsalis pedis pulses present; no JVD Gastrointestinal (Abdomen) normal bowel sounds, soft, nontender, no hepatosplenomegaly Psychiatric A+Ox3, euthymic affect Discharge Data Allergies Allergy/AdvReac Type Severity Reaction Status Date / Time No Known Allergies Allergy Unknown Verified 09/15/20 10:04 Ordered Studies 09/03/20 12:34 CT angio chest PE protocol Stat IMPRESSION: 1. No evidence for pulmonary embolus. 2. Near diffuse multifocal groundglass and consolidative airspace opacities consistent with a viral pneumonia. 3. Small moderate right pleural effusion which has slightly improved. Trace left pleural effusion. 4. There are 2 cylindrical shaped densities within the proximal esophagus measures up to 1.7 cm. These may represent ingested medication. Hospital Course (1) Pneumonia due to COVID-19 virus: Clinically improving/resolving while hospitalized. Symptoms began 1 week before admission. s/p experimental monoclonal antibody at [facility] on 09/03/20 but clinically worsened following such. Was also on solu-medrol prior to admission to [facility]. Patient received course of IV dexamethasone while hospitalized. He received 7 days in total of such. Will need to complete 3 more days of dexamethasone after discharge. Remdesivir and convalescent plasma were deferred while here. In addition to the above he received a course of IV antibiotics for possible superimposed bacterial pneumonia. He will take 1 additional day of Omnicef antibiotic at home. Finally, Mr Saunders was hypoxic and needed supplemental oxygen his entire stay. 2-step oxygen test on day of discharge revealed need for 2 liters of NC O2 with ambulation only. (2) Acute respiratory failure with hypoxia: 2nd to COVID pneumonia. CT chest was negative for PE. Was initially on BiPAP at time of admission for his severe respiratory illness. Weaned to NC O2 and remained on such until time of discharge. See above in "COVID-19 pneumonia." (3) GERD (gastroesophageal reflux disease): Continue pantoprazole 40mg PO daily (4) Depression: Continue his usual medications with Wellbutrin, citalopram, buspirone and ziprasidone. (5) Hypertension: BPs quite high during the stay- steroid effect? Consider initiating anti-hypertensives after discharge if BPs remain elevated. (6) Diarrhea: Improving before discharge. C diff negative. Likely antibiotic-associated diarrhea or due to COVID itself. (7) Low back pain: Acute on chronic. Continue Paraflex and Hydrocodone. Takes hydrocodone chronically. His usual dose of 5mg hydrocodone was not effective while hospitalized. Increased to 7.5mg each dose with better relief of symptoms. Gave small quantity of 7.5mg strength hydrocodone-acetaminophen at discharge. (8) Abnormal LFTs: Likely 2nd to COVID-19 infection. consider HepB/C testing as outpatient. HepC was neg in 2019 at [facility] however. Would recheck LFTs at time of hospital f/u to ensure normalization. (9) DVT prophylaxis: Lovenox 40mg SQ BID was employed while here. Total Time Total Time Spent Total Time Spent (In Minutes): 45 Total Time Includes: Examination of the Patient, Discharge Planning and Medication Reconciliation Discharge Plan Discharge Items Patient Disposition: Home - Home Health Services Reason For Visit: COVID-19 PNEUMONIA Discharge Diagnosis: 1. COVID-19 Pneumonia 2. Chronic low back pain 3. Abnormal liver function tests - likely due to COVID-19 infection 4. Elevated blood pressures - follow-up needed for this Activity: As commented below Activity Comment: gradually increase activities over the next 1-2 weeks as you feel better Non-emergency contact: Primary Care Provider Call non-emergency contact if: you have any medication questions, your symptoms worsen, your pain is not controlled, your pain is worsening and you have a fever Follow-up/Referrals: Terri Do MD [Primary Care Provider] - 09/15/20 9:45 am (please schedule a telehealth/virtual visit with Dr Do in 5 days ) Diet: Heart Healthy Addtl Attending Provider Instructions: You were treated for pneumonia due to COVID-19 infection. Initially you required a considerable amount of oxygen during your stay and, as you improved, the oxygen was weaned down. At time of discharge you do not need to use oxygen at rest HOWEVER you will need to use 2 liters of nasal cannula oxygen when you leave your home or with activity/ambulation. Your COVID-19 infection improved over time with IV steroids and other treatments. Since your symptoms started in late July it is unlikely that you are contagious to others at this time. However, to err on the side of caution, it may be prudent for you to stay at home for another 6-7 days as you recover from this illness. Recommendations - 1. oxygen 2 liters via nasal cannula with activity/ambulation. Hopefully this can be weaned off over the next few weeks. 2. dexamethasone steroid -- 6mg once daily for 3 more days starting TOMORROW, 09/10/20. 3. antibiotic -- cefdinir 300mg twice daily for 1 day then stop. 4. because your back pain was worse during the stay I increased your pain medication from the 7.5mg strength to the 10mg strength. I have given you a small quantity of the higher strength. Do not take your old prescription (7.5's) and the new prescription (10m's) at the same time. [facility] to discuss adjustment of your pain medication. 5. I would recommend a repeat chest x-ray in 1 month to ensure all of the pneumonia is improving and the pocket of fluid ("pleural effusion") on the right is improving. Follow-up - see separate section Return to [facility] if - * you have recurrent fevers over 100 degrees * you have worsening shortness of breath or chest pain * you have to increase the amount of oxygen on your oxygen tank for your breathing * any other concerns Pending Studies at Discharge: No Stand-Alone Forms: [facility], Smoking Cessation Medications and DC Order Prescriptions: New (DME) Oxygen Home Liters Per Minute 1 ea .Route .prn Qty: 1 RF: 0 hydrocodone-acetaminophen 10-325 mg tablet 1 tab PO Q8H PRN (Reason: pain) Qty: 14 RF: 0 Continued (DME) HEEL LIFTS Misc See Rx Instructions .ROUTE .MEDSUPPLY Qty: 1 RF: 0 buspirone 5 mg Tablet 5 mg PO TID RF: 0 citalopram 40 mg Tablet 40 mg PO QAM RF: 0 trazodone 50 mg Tablet 50 mg PO HS RF: 0 alendronate 70 mg Tablet 70 mg PO WK RF: 0 gabapentin 400 mg Capsule 400 mg PO BID RF: 0 sulfamethoxazole-trimethoprim [Bactrim DS] 800-160 mg Tablet 1 tab PO Q12H RF: 0 bupropion HCl 100 mg Tablet 100 mg PO QAM RF: 0 ascorbic acid (vitamin C) [Vitamin C] 500 mg Tablet 500 mg PO QAM RF: 0 tamsulosin [Flomax] 0.4 mg Capsule 0.4 mg PO QPM RF: 0 saw palmetto 500 mg Capsule 1,000 mg PO QAM RF: 0 magnesium oxide 400 mg magnesium Tablet 400 mg PO QPM RF: 0 pantoprazole 40 mg tablet,delayed release (DR/EC) 40 mg PO QAM RF: 0 cyanocobalamin (vitamin B-12) [Vitamin B-12] 2,500 mcg Tablet, Sublingual 2,500 mcg SUBLINGUAL QAM RF: 0 aspirin [Aspirin Low Dose] 81 mg Tablet,Delayed Release (Dr/Ec) 81 mg PO HS RF: 0 latanoprost 0.005 % Drops 1 drp OPHTHALMIC (EYE) PM RF: 0 dorzolamide 2 % Drops 1 drp OPHTHALMIC (EYE) TID RF: 0 sucralfate [Carafate] 1 gram tablet 1 gm PO HS RF: 0 brimonidine 0.2 % Drops 1 drp OPHTHALMIC (EYE) TID RF: 0 chlorzoxazone 500 mg tablet 750 mg PO TID RF: 0 Discontinued methylprednisolone 4 mg tablets,dose pack See Rx Instructions .ROUTE .COMPLEX Qty: 21 RF: 0 Discharge Orders: Discharge Order (Routine); Ordered 09/09/20 Ordered By: Doron Alvarez/Other Patient Handouts: 2019-nCoV, COVID-19 Home Care, Disinfecting Your Home of COVID-19 Admission Data Admit Date/Time: 09/03/20 14:05 Attending Provider: Doron Wilson Admit Provider: Doron Granados Primary Care Provider: Terri Do Other Providers: Doron Granados ; [facility] Other Interventions: Discharge Summary Assessment (RN) Last Done: 09/09/20 16:56 Coding Level of Care Code D/C Day Management >30 mins Diagnoses Pneumonia due to COVID-19 virus U07.1; J12.82 Acute respiratory failure with hypoxia J96.01 GERD (gastroesophageal reflux disease) K21.9 Esophagitis presence: without esophagitis Depression F32.9 Hypertension I10 Diarrhea R19.7 Low back pain M54.5 Abnormal LFTs R94.5 DVT prophylaxis Z29.9
== END 2020-09-09 18:49 | disposition home health service (06) | DRG 177 ==
LOC: ED 11:34 → 2E 14:05 → SUATTDRO 14:05 → 2E 18:30 → 3E 09-06 10:51

== ENCOUNTER 2020-10-05 08:40 | Inpatient (IN) ==
[2020-10-05] MEDS ORDERED: SODIUM CHLORIDE 0.9% 500 ML IV ONE (09:00)
[2020-10-05] MEDS ORDERED: ALBUT/IPRATROP 3MG/0.5MG NEB 3 ML VIAL NEB ONE (09:05)
[2020-10-05] MEDS ORDERED: guaiFENesin 600 MG TABCR PO STA (09:05)
[2020-10-05] MEDS ORDERED: DEXAMETHASONE SOD INJ 10 MG/ML VIAL IV ONE (09:05)
--- NOTE | 2020-10-05 09:34 | XRay Report ---
XR chest 1V portable HISTORY: 70 years-old Male SEPSIS acute sepsis. COVID Positive. COMPARISON: Chest radiograph and CTA chest 09/03/2020 TECHNIQUE: Portable AP view of the chest FINDINGS: Cardiomediastinal and hilar silhouettes are unchanged. There are persistent extensive bilateral airsp noni opacities which have progressively worsened in the upper lung zones. Small pleural effusions. No pneumothorax. Heterotopic ossifications are noted associated with a chronic right clavicular fracture deformity. Reverse left shoulder total joint arthroplasty with ossifications noted inferior to the l eft glenoid. Multilevel degenerative changes of the spine. IMPRESSION: 1. Extensive bilateral airspace opacities, mildly progressed within the upper lung zones suggest mult ifocal pneumonia. 2. Small pleural effusions. ACT 112: Negative or not required by law. The above report was generated using voice recognition software. It may contain grammatical, syntax o r spelling errors. Electronically signed by: Kar Ford M.D. 10/05/2020 9:32 AM
[2020-10-05 09:43] LABS: Basophils # (auto) 0.03 K/uL (0-0.2); Basophils % (auto) 0.4 %; Eosinophils # (auto) 0.07 K/uL (0-0.5); Hematocrit (blood only) 34.8 % (42-52); Hemoglobin 10.9 g/dL (14.0-18.0); Immature Granulocytes # (auto) 0.01 K/uL (0.00-0.02); Immature Granulocytes % (auto) 0.1 %; Mean Corpuscular Hemoglobin 26.7 pg (25-34); Mean Corpuscular Hgb Conc 31.3 g/dL (32-36); Mean Corpuscular Volume 85.1 fL (80-100); Mean Platelet Volume 8.5 fL (7.4-10.4); Monocytes # (auto) 0.61 K/uL (0.11-0.59); Monocytes % (auto) 8.4 %; Neutrophils # (auto) 5.73 K/uL (1.4-6.5); Neutrophils % (auto) 79.1 %; Platelet Count 495 K/uL (130-400); RDW Coefficient of Variation 15.5 % (11.5-14.5); RDW Standard Deviation 48.4 fL (36.4-46.3); Red Blood Count 4.09 M/uL (4.7-6.1); White Blood Count 7.25 K/uL (4.8-10.8)
[2020-10-05 09:44] LABS: HCO3 VBG 24 mmol/L; PCO2 VBG 44 mmHg (38-50); PO2 VBG 30 mmHg; pH VBG 7.35 (7.36-7.41)
[2020-10-05 09:49] LABS: Oxygen Saturation VBG < 60.0 %
[2020-10-05 10:00] LABS: Alanine Aminotransferase 26 U/L (12-78); Albumin Level 2.2 gm/dl (3.4-5.0); Aspartate Aminotransferase 24 U/L (15-37); Bilirubin Direct < 0.1 mg/dl (0-0.2); Blood Urea Nitrogen 13 mg/dl (7-18); Calcium 8.4 mg/dl (8.5-10.1); Carbon Dioxide 25 mmol/L (21-32); Chloride 109 mmol/L (98-107); Est GFR (African American) 106.6; Est GFR (Non-African American) 91.9; Glucose 87 mg/dl (70-99); Magnesium 2.4 mg/dl (1.8-2.4); Potassium 4.5 mmol/L (3.5-5.1); Sodium 142 mmol/L (136-145)
--- NOTE | 2020-10-05 10:02 | Emergency Department Note ---
Impression & Plan Acute respiratory failure with hypoxia, Bilateral pleural effusion, History of COVID-19 ED Provider Note NAME: NOY COREY AGE: 70 SEX: M ARRIVES VIA: Ambulance INFORMANT: Patient, ED PROVIDER(S): Mango Ayers MD CHIEF COMPLAINT: Shortness of breath. PLAN: Disposition: Admit MEDICAL DECISION MAKING: The patient is a pleasant 70-year-old gentleman with a past medical history of atrial fibrillation, GERD, recent hospitalization for COVID-19 diagnosed on 08/28 who was discharged on as needed oxygen who presents emergency department with worsening shortness of breath over the past week where he reports his oxygen requirements have increased where he will need to use his oxygen almost all the time whereas previously it was about 50% of the time and noted that he will easily develop low oxygen as low as 70% with minimal exertion such as walking to the kitchen and so today continued to feel worse presents to the emergency department. On arrival the patient is ill-appearing but no acute distress, afebrile with respiratory rate in the low 30s and mild dyspnea with O2 saturation 91% on 3 L nasal cannula. On exam the patient appears clinically dry and cachectic. He does have rhonchi and wheezes of the left greater than right lung hays. EKG without overt acute ischemia. CXR with progress multi-focal PNA. WBC wnl. H/H approximate to prior. Platelets 400s likely reactive. VBG unremarkable. Chemistry without acidosis. Electrolytes and LFTs without significant abnormality. Lactate wnl. Troponin negative. BNP wnl. Procalcitonin, 0.18, nonspecific and stable from prior. UA without convincing infection. CTA chest negative for PE however further characterizes progression of multifocal PNA as well as moderate-large pleural effusions. The patient denies any significant improvement following Dexamethasone, Guafensin, and Duoneb. Given worsening respiratory status in the setting of recent Covid19 PNA patient agrees with plan for admission. Case was discussed with Dr. Granados, [facility] hospitalist, who will evaluate the patient for admission. Will defer decision for antibiotics to admitting team. Triage Nursing notes reviewed and agree them. Prior medical records reviewed Vital Signs: reviewed and remarkable for hypoxia, tachypnea. Differential diagnosis: Reactive airway disease, pneumonia, pneumothorax, COPD, CHF, infections, cardiac ischemia, pulmonary embolism, musculoskeletal, gastrointestinal, as well as other pathologies. ER treatment provided: See below. Diagnostics interpreted by me: ECG: NSR, 72 bpm, no ectopy, no overt ST elevation or depression. Cardiac Monitoring: An order for continuous cardiac monitoring was placed and demonstrated NSR, 72 bpm, no ectopy. Laboratory studies: See below Imaging studies: XR chest 1V portable HISTORY: 70 years-old Male SEPSIS acute sepsis. COVID Positive. COMPARISON: Chest radiograph and CTA chest 09/03/2020 TECHNIQUE: Portable AP view of the chest FINDINGS: Cardiomediastinal and hilar silhouettes are unchanged. There are persistent extensive bilateral airspace opacities which have progressively worsened in the upper lung zones. Small pleural effusions. No pneumothorax. Heterotopic ossifications are noted associated with a chronic right clavicular fracture deformity. Reverse left shoulder total joint arthroplasty with ossifications noted inferior to the left glenoid. Multilevel degenerative changes of the spi ne. IMPRESSION: 1. Extensive bilateral airspace opacities, mildly progressed within the upper lung zones suggest multifocal pneumonia. 2. Small pleural effusions. ACT 112: Negative or not required by law. The above report was generated using voice recognition software. It may contain grammatical, syntax or spelling errors. -- CT angio chest PE protocol CT DOSE: 429.37 mGy.cm HISTORY: 70 years-old Male with sob, hypoxia, covid+ 08/28, PE. Acute shortness of breath with Covid pneumonia TECHNIQUE: Multiple CTA images of the chest were obtained after the intravenous administration of 120 ml Optiray 320. Coronal and sagittal MIPS were obtained from the axial data set and were submitted for review. All measurements were obtained according to NASCET criteria. A dose lowering technique was utilized adhering to the principles of ALARA. COMPARISON: Chest radiograph of same day, CTA chest 09/03/2020 FINDINGS: CTA: Heart is upper limits of normal in size. Trace pericardial effusion. Extensive coronary artery calcifications. Mild ectasia of the ascending thoracic aorta, 3.8 cm. No aneurysm or dissection. Descending thoracic aortic tortuosity. The opacified pulmonary artery is unremarkable. No pulmonary embolus. CT CHEST: Unremarkable thyroid. Prominent mediastinal lymph nodes are likely reactive. Moderate to large right and moderate left pleural effusions have increased in size from comparison. There is no pneumothorax. Pulmonary vascular congestion. The previously described diffuse groundglass densities have now coalesced into patchy alveolar opacities with mild intermixed groundglass densities noted within a peripheral and subpleural predominant distribution. Central airways are patent. Gynecomastia. Unremarkable soft tissues. Ununited right clavicular fracture. Left shoulder arthroplasty. Chronic right-sided rib fracture deformities. IMPRESSION: 1. No evidence of pulmonary embolus. 2. Moderate to large right and moderate left pleural effusions have increased in size from comparison. 3. Bilateral multilobar distribution of intermixed alveolar and groundglass opacities are compatible with multifocal pneumonia. ACT 112: Negative or not required by law. The above report was generated using voice recognition software. It may contain grammatical, syntax or spelling errors. -- Consultation(s): Case was discussed with Dr. Granados, [facility] hospitalist, who will evaluate the patient for admission. HPI: The patient is a pleasant 70-year-old gentleman with a past medical history of atrial fibrillation, GERD, recent hospitalization for COVID-19 diagnosed on 08/28 who was discharged on as needed oxygen who presents emergency department with worsening shortness of breath over the past week where he reports his oxygen requirements have increased where he will need to use his oxygen almost all the time whereas previously it was about 50% of the time and noted that he will easily develop low oxygen as low as 70% with minimal exertion such as walking to the kitchen and so today continued to feel worse presents to the emergency department. ROS: See above HPI for pertinent positives & negatives. A total of 10 systems reviewed and were otherwise negative. PAST MEDICAL HISTORY:See Below PAST SURGICAL HISTORY:See Below FAMILY HISTORY:See Below SOCIAL HISTORY:See Below HOME MEDICATIONS:See Below ALLERGIES:See Below VITALS:See Below PHYSICAL EXAMINATION: GENERAL: Awake, alert, ill/cachectic-appearing, in no distress HENT: Normocephalic, atraumatic. Oropharynx with dry mucous membranes and otherwise unremarkable. EYES: Normal conjunctiva. Sclera non-icteric. NECK: Supple. No nuchal rigidity. FROM. No JVD. RESPIRATORY: Wheezes and rhonchi of left greater than right lung hays. CARDIAC: Regular rate, normal rhythm. Extremities warm and well perfused. Pulses equal. ABDOMEN: Soft, non-distended. No tenderness to palpation. No rebound or guarding. No masses. RECTAL: Deferred. MUSCULOSKELETAL: Chest examination reveals no tenderness. The back is s ymmetrical on inspection without obvious abnormality. There is no CVA tenderness to palpation. No joint edema. LOWER EXTREMITIES: Calves are equal size bilaterally and non-tender. No edema. No discoloration. NEURO: Normal sensorium. No sensory or motor deficits noted. SKIN: No rash or jaundice noted. Mango Ayers MD Past Med/Surg History Medical History Anxiety Ascites Chronic back pain Depression Exposure to COVID-19 virus Former smoker GERD (gastroesophageal reflux disease) Glaucoma Hearing deficit hearing aid (left) Hyperlipidemia Leg length discrepancy RLE > LLE s/p multiple left hip revisions (per patient, missing hip joint) due to complications from hip surgery/revisions/MRSA infection- on chronic preventative Bactrim-- uses shoe with elevated heel/crutches Osteoarthritis Peptic ulcer disease 12/2018 Pleural effusion Pneumonia Pneumonia due to 2019 novel coronavirus Restless leg syndrome Shortness of breath Transient ischemic attack (TIA) x1 (~2014) Surgical History H/O eye surgery 2 DRAINAGE TUBES RT/LEFT EYE FOR GLAUCOMA currently in place History of bilateral cataract extraction History of colonoscopy History of esophagogastroduodenoscopy (EGD) History of hip surgery LEFT HIP SURGERY/REVISIONS (TOTAL OF 9 SURGERIES) History of laminectomy L3-L5 laminectomy: 05/12/15: Grade view 1, MAC#3, ETT 8.0 (atraumatic DL x 1) at [facility] History of tonsillectomy and adenoidectomy History of tooth extraction Status post reverse total arthroplasty of left shoulder Family History Other No family history of adverse response to anesthesia No pertinent family history Social History Smoking Status: Former smoker Second Hand Exposure: No; Hx Alcohol Use: Yes Alcohol type: beer and hard liquor Hx Substance Use: No Preferred Language: Yi Communication Ability: Effective 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 Beliefs That Will Affect Care: None marital status: Current Living Situation: Spouse Feels Safe at Home: Yes Assistive Devices: Crutches and Special Shoe Allergies Allergies Allergy/AdvReac Type Severity Reaction Status Date / Time No Known Allergies Allergy Unknown Verified 10/05/20 15:43 Home Meds Home Medications Medication Instructions Recorded Confirmed alendronate 70 mg PO WK 01/10/19 10/05/20 ascorbic acid (vitamin C) [Vitamin 500 mg PO QAM 01/10/19 10/05/20 C] bupropion HCl 200 mg PO BID 01/10/19 10/05/20 buspirone 5 mg PO TID 01/10/19 10/05/20 citalopram 40 mg PO QAM 01/10/19 10/05/20 saw palmetto 1,000 mg PO QAM 01/10/19 10/05/20 sulfamethoxazole-trimethoprim 1 tab PO Q12H 01/10/19 10/05/20 [Bactrim DS] tamsulosin [Flomax] 0.4 mg PO QPM 01/10/19 10/05/20 aspirin [Aspirin Low Dose] 81 mg PO HS 06/13/19 10/05/20 dorzolamide 1 drp OPHTHALMIC (EYE) TID 06/13/19 10/05/20 latanoprost 1 drp OPHTHALMIC (EYE) PM 06/13/19 10/05/20 brimonidine 1 drp OPHTHALMIC (EYE) TID 07/03/19 10/05/20 sucralfate [Carafate] 1 gm PO HS 07/03/19 10/05/20 chlorzoxazone 500 mg tablet 750 mg PO Q6H PRN 08/08/19 10/05/20 pantoprazole 40 mg PO QAM 08/01/20 10/05/20 [id number]-[id number] 105mg 2 tab PO UD 10/05/20 10/05/20 Calcium [id number] 1 tab PO QAM 10/05/20 10/05/20 15-Vitamin D3 15 gabapentin 600 mg PO TID 10/05/20 10/05/20 hydrocodone-acetaminophen 1 tab PO QAM 10/05/20 10/05/20 metoprolol tartrate 25 mg PO BID 10/05/20 10/05/20 multivitamin 1 tab PO QAM 10/05/20 10/05/20 omega 5-cuz-kuo-fish oil [Fish Oil] 1 cap PO QAM 10/05/20 10/05/20 trazodone 150 mg PO HS 10/05/20 10/05/20 Previous Rx's Medication Instructions Recorded HEEL LIFTS #1 ea 04/24/20 Oxygen Home #1 ea 09/09/20 Results & Data (ED) Vital Signs Vital Signs - 24 hr 10/05/20 08:49 10/05/20 09:00 10/05/20 09:30 Temperature 36.8 C Temperature Source Oral Pulse Rate 80 70 68 Pulse Rate [Apical] Pulse Rate from SpO2 Sensor 70 Respiratory Rate 20 22 19 Respiratory Effort / Characteristics Non-Labored Spontaneous Respiratory Depth Normal Respiratory Pattern Regular Blood Pressure 130/70 118/64 115/66 Blood Pressure Mean 90 82 82 Pulse Oximetry 86 L 93 94 Oxygen Delivery Method Room Air Nasal Cannula Oxygen Flow Rate 2 3 2 Sepsis Recent Fever Within 48 Hours No Sepsis New/Unexplained Change in Mental Status No Sepsis Action Taken by Nursing No Action Required Oxygen Flow Rate - Titration 3 Pulse Oximetry Post Tiitration 93 10/05/20 09:38 10/05/20 10:00 10/05/20 10:30 Temperature Temperature Source Pulse Rate 72 Pulse Rate [Apical] 68 Pulse Rate from SpO2 Sensor 72 81 Respiratory Rate 32 H 20 22 Respiratory Effort / Characteristics Non-Labored Spontaneous Respiratory Depth Respiratory Pattern Blood Pressure 105/65 123/68 Blood Pressure Mean 78 86 Pulse Oximetry 91 99 93 Oxygen Delivery Method Nasal Cannula Oxygen Flow Rate 3 2 2 Sepsis Recent Fever Within 48 Hours Sepsis New/Unexplained Change in Mental Status Sepsis Action Taken by Nursing Oxygen Flow Rate - Titration Pulse Oximetry Post Tiitration 10/05/20 11:27 10/05/20 11:30 10/05/20 12:00 Temperature Temperature Source Pulse Rate 97 H 97 H 93 H Pulse Rate [Apical] Pulse Rate from SpO2 Sensor Respiratory Rate 25 H 24 25 H Respiratory Effort / Characteristics Respiratory Depth Respiratory Pattern Blood Pressure 137/74 125/85 120/65 Blood Pressure Mean 95 98 83 Pulse Oximetry 92 93 93 Oxygen Delivery Method Oxygen Flow Rate 3 3 3 Sepsis Recent Fever Within 48 Hours Sepsis New/Unexplained Change in Mental Status Sepsis Action Taken by Nursing Oxygen Flow Rate - Titration Pulse Oximetry Post Tiitration 10/05/20 12:30 10/05/20 13:00 Temperature Temperature Source Pulse Rate 96 H 107 H Pulse Rate [Apical] Pulse Rate from SpO2 Sensor Respiratory Rate 22 23 Respiratory Effort / Characteristics Respiratory Depth Respiratory Pattern Blood Pressure 145/80 H 154/84 H Blood Pressure Mean 101 107 Pulse Oximetry 92 93 Oxygen Delivery Method Oxygen Flow Rate 3 3 Sepsis Recent Fever Within 48 Hours Sepsis New/Unexplained Change in Mental Status Sepsis Action Taken by Nursing Oxygen Flow Rate - Titration Pulse Oximetry Post Tiitration Laboratory Data Attestation: I reviewed the patient's lab results. Result diagrams: 10/05/20 09:18 10/05/20 09:18 Lab Results 10/05/20 10/05/20 10/05/20 Range/Units 09:18 09:18 09:18 WBC 7.25 (4.8-10.8) K/uL RBC 4.09 L (4.7-6.1) M/uL Hgb 10.9 L (14.0-18.0) g/dL Hct 34.8 L (42-52) % MCV 85.1 (80-100) fL MCH 26.7 (25-34) pg MCHC 31.3 L (32-36) g/dL RDW Std Deviation 48.4 H (36.4-46.3) fL RDW Coeff of Timbo 15.5 H (11.5-14.5) % Plt Count 495 H (130-400) K/uL MPV 8.5 (7.4-10.4) fL Immature Gran % (Auto) 0.1 % Neut % (Auto) 79.1 % Lymph % (Auto) 11.0 % [place] % (Auto) 8.4 % Eos % (Auto) 1.0 % Baso % (Auto) 0.4 % Neut # (Auto) 5.73 (1.4-6.5) K/uL Lymph # (Auto) 0.80 L (1.2-3.4) K/uL [place] # (Auto) 0.61 H (0.11-0.59) K/uL Eos # (Auto) 0.07 (0-0.5) K/uL Baso # (Auto) 0.03 (0-0.2) K/uL Immature Gran # (Auto) 0.01 (0.00-0.02) K/uL PT Cancelled INR Cancelled APTT Cancelled PTT Ratio Cancelled D-Dimer (0-500) ug/L FEU VBG pH (7.36-7.41) VBG pCO2 (38-50) mmHg VBG pO2 mmHg VBG HCO3 mmol/L VBG O2 Saturation % VBG Base Excess mEq/L Barometric Pressure mm/Hg Sodium 142 (136-145) mmol/L Potassium 4.5 (3.5-5.1) mmol/L Chloride 109 H (98-107) mmol/L Carbon Dioxide 25 (21-32) mmol/L Anion Gap 8.0 (3-11) BUN 13 (7-18) mg/dl Creatinine 0.77 (0.6-1.4) mg/dl Est Cr Clr Drug Dosing 98.0 ml/min Est GFR ( Amer) 106.6 Est GFR (Non-Af Amer) 91.9 BUN/Creatinine Ratio 17.0 (10-20) Glucose 87 (70-99) mg/dl Lactate (0.4-2.0) mmol/L Calcium 8.4 L (8.5-10.1) mg/dl Phosphorus 3.9 (2.5-4.9) mg/dl Magnesium 2.4 (1.8-2.4) mg/dl Total Bilirubin 0.1 L (0.2-1) mg/dl Direct Bilirubin < 0.1 (0-0.2) mg/dl AST 24 (15-37) U/L ALT 26 (12-78) U/L Alkaline Phosphatase 134 H (45-117) U/L Lactate Dehydrogenase (87-241) U/L Troponin I < 0.015 (0-0.045) ng/ml NT-Pro-B Natriuret Pep 595 (0-900) pg/ml Total Protein 7.0 (6.4-8.2) gm/dl Albumin 2.2 L (3.4-5.0) gm/dl Globulin 4.8 H (2.5-4.0) gm/dl Albumin/Globulin Ratio 0.5 L (0.9-2) Procalcitonin (0-0.5) ng/ml Nasal Screen MRSA (PCR) (Negative) Influ A Molecular Assay (Negative) Influ B Molecular Assay (Negative) 10/05/20 10/05/20 10/05/20 Range/Units 09:18 09:18 09:20 WBC (4.8-10.8) K/uL RBC (4.7-6.1) M/uL Hgb (14.0-18.0) g/dL Hct (42-52) % MCV (80-100) fL MCH (25-34) pg MCHC (32-36) g/dL RDW Std Deviation (36.4-46.3) fL RDW Coeff of Timbo (11.5-14.5) % Plt Count (130-400) K/uL MPV (7.4-10.4) fL Immature Gran % (Auto) % Neut % (Auto) % Lymph % (Auto) % [place] % (Auto) % Eos % (Auto) % Baso % (Auto) % Neut # (Auto) (1.4-6.5) K/uL Lymph # (Auto) (1.2-3.4) K/uL [place] # (Auto) (0.11-0.59) K/uL Eos # (Auto) (0-0.5) K/uL Baso # (Auto) (0-0.2) K/uL Immature Gran # (Auto) (0.00-0.02) K/uL PT INR APTT PTT Ratio D-Dimer (0-500) ug/L FEU VBG pH (7.36-7.41) VBG pCO2 (38-50) mmHg VBG pO2 mmHg VBG HCO3 mmol/L VBG O2 Saturation % VBG Base Excess mEq/L Barometric Pressure mm/Hg Sodium (136-145) mmol/L Potassium (3.5-5.1) mmol/L Chloride (98-107) mmol/L Carbon Dioxide (21-32) mmol/L Anion Gap (3-11) BUN (7-18) mg/dl Creatinine (0.6-1.4) mg/dl Est Cr Clr Drug Dosing ml/min Est GFR ( Amer) Est GFR (Non-Af Amer) BUN/Creatinine Ratio (10-20) Glucose (70-99) mg/dl Lactate 0.8 (0.4-2.0) mmol/L Calcium (8.5-10.1) mg/dl Phosphorus (2.5-4.9) mg/dl Magnesium (1.8-2.4) mg/dl Total Bilirubin (0.2-1) mg/dl Direct Bilirubin (0-0.2) mg/dl AST (15-37) U/L ALT (12-78) U/L Alkaline Phosphatase (45-117) U/L Lactate Dehydrogenase 365 H (87-241) U/L Troponin I (0-0.045) ng/ml NT-Pro-B Natriuret Pep (0-900) pg/ml Total Protein (6.4-8.2) gm/dl Albumin (3.4-5.0) gm/dl Globulin (2.5-4.0) gm/dl Albumin/Globulin Ratio (0.9-2) Procalcitonin 0.18 (0-0.5) ng/ml Nasal Screen MRSA (PCR) (Negative) Influ A Molecular Assay (Negative) Influ B Molecular Assay (Negative) 10/05/20 10/05/20 10/05/20 Range/Units 09:20 10:54 10:54 WBC (4.8-10.8) K/uL RBC (4.7-6.1) M/uL Hgb (14.0-18.0) g/dL Hct (42-52) % MCV (80-100) fL MCH (25-34) pg MCHC (32-36) g/dL RDW Std Deviation (36.4-46.3) fL RDW Coeff of Timbo (11.5-14.5) % Plt Count (130-400) K/uL MPV (7.4-10.4) fL Immature Gran % (Auto) % Neut % (Auto) % Lymph % (Auto) % [place] % (Auto) % Eos % (Auto) % Baso % (Auto) % Neut # (Auto) (1.4-6.5) K/uL Lymph # (Auto) (1.2-3.4) K/uL [place] # (Auto) (0.11-0.59) K/uL Eos # (Auto) (0-0.5) K/uL Baso # (Auto) (0-0.2) K/uL Immature Gran # (Auto) (0.00-0.02) K/uL PT 12.0 INR 1.2 H APTT 31.5 H PTT Ratio 1.2 D-Dimer 3860 H* (0-500) ug/L FEU VBG pH 7.35 L (7.36-7.41) VBG pCO2 44 (38-50) mmHg VBG pO2 30 mmHg VBG HCO3 24 mmol/L VBG O2 Saturation < 60.0 % VBG Base Excess -2.0 mEq/L Barometric Pressure 730.0 mm/Hg Sodium (136-145) mmol/L Potassium (3.5-5.1) mmol/L Chloride (98-107) mmol/L Carbon Dioxide (21-32) mmol/L Anion Gap (3-11) BUN (7-18) mg/dl Creatinine (0.6-1.4) mg/dl Est Cr Clr Drug Dosing ml/min Est GFR ( Amer) Est GFR (Non-Af Amer) BUN/Creatinine Ratio (10-20) Glucose (70-99) mg/dl Lactate (0.4-2.0) mmol/L Calcium (8.5-10.1) mg/dl Phosphorus (2.5-4.9) mg/dl Magnesium (1.8-2.4) mg/dl Total Bilirubin (0.2-1) mg/dl Direct Bilirubin (0-0.2) mg/dl AST (15-37) U/L ALT (12-78) U/L Alkaline Phosphatase (45-117) U/L Lactate Dehydrogenase (87-241) U/L Troponin I (0-0.045) ng/ml NT-Pro-B Natriuret Pep (0-900) pg/ml Total Protein (6.4-8.2) gm/dl Albumin (3.4-5.0) gm/dl Globulin (2.5-4.0) gm/dl Albumin/Globulin Ratio (0.9-2) Procalcitonin (0-0.5) ng/ml Nasal Screen MRSA (PCR) (Negative) Influ A Molecular Assay (Negative) Influ B Molecular Assay (Negative) 10/05/20 10/05/20 Range/Units 12:35 12:35 WBC (4.8-10.8) K/uL RBC (4.7-6.1) M/uL Hgb (14.0-18.0) g/dL Hct (42-52) % MCV (80-100) fL MCH (25-34) pg MCHC (32-36) g/dL RDW Std Deviation (36.4-46.3) fL RDW Coeff of Timbo (11.5-14.5) % Plt Count (130-400) K/uL MPV (7.4-10.4) fL Immature Gran % (Auto) % Neut % (Auto) % Lymph % (Auto) % [place] % (Auto) % Eos % (Auto) % Baso % (Auto) % Neut # (Auto) (1.4-6.5) K/uL Lymph # (Auto) (1.2-3.4) K/uL [place] # (Auto) (0.11-0.59) K/uL Eos # (Auto) (0-0.5) K/uL Baso # (Auto) (0-0.2) K/uL Immature Gran # (Auto) (0.00-0.02) K/uL PT INR APTT PTT Ratio D-Dimer (0-500) ug/L FEU VBG pH (7.36-7.41) VBG pCO2 (38-50) mmHg VBG pO2 mmHg VBG HCO3 mmol/L VBG O2 Saturation % VBG Base Excess mEq/L Barometric Pressure mm/Hg Sodium (136-145) mmol/L Potassium (3.5-5.1) mmol/L Chloride (98-107) mmol/L Carbon Dioxide (21-32) mmol/L Anion Gap (3-11) BUN (7-18) mg/dl Creatinine (0.6-1.4) mg/dl Est Cr Clr Drug Dosing ml/min Est GFR ( Amer) Est GFR (Non-Af Amer) BUN/Creatinine Ratio (10-20) Glucose (70-99) mg/dl Lactate (0.4-2.0) mmol/L Calcium (8.5-10.1) mg/dl Phosphorus (2.5-4.9) mg/dl Magnesium (1.8-2.4) mg/dl Total Bilirubin (0.2-1) mg/dl Direct Bilirubin (0-0.2) mg/dl AST (15-37) U/L ALT (12-78) U/L Alkaline Phosphatase (45-117) U/L Lactate Dehydrogenase (87-241) U/L Troponin I (0-0.045) ng/ml NT-Pro-B Natriuret Pep (0-900) pg/ml Total Protein (6.4-8.2) gm/dl Albumin (3.4-5.0) gm/dl Globulin (2.5-4.0) gm/dl Albumin/Globulin Ratio (0.9-2) Procalcitonin (0-0.5) ng/ml Nasal Screen MRSA (PCR) Negative (Negative) Influ A Molecular Assay Negative (Negative) Influ B Molecular Assay Negative (Negative) Administered Medications Hydrocodone Bitart/Acetaminophen (Hydrocodone/Acetaminophen 10/325 Tab) 1 tab PO Q4H PRN PRN Reason: Pain Stop: 10/19/20 15:59 Last Admin: 10/05/20 22:27 Dose: 1 tab Documented by: [id number] Aspirin (Aspirin 81 Mg Ectab) 81 mg PO HS [facility] Stop: 11/04/20 20:59 Last Admin: 10/05/20 21:01 Dose: 81 mg Documented by: [id number] Brimonidine Tartrate (Brimonidine Tartrate 0.2% 5ml) 1 drops OPB TID [facility] Stop: 11/04/20 20:59 Last Admin: 10/05/20 20:56 Dose: 1 drops Documented by: [id number] Bupropion HCl (Bupropion Hcl 100 Mg Tablet) 200 mg PO [id number] [facility] Stop: 11/04/20 16:59 Last Admin: 10/05/20 17:20 Dose: 200 mg Documented by: [id number] Buspirone HCl (Buspirone 5 Mg Tab) 5 mg PO TID [facility] Stop: 11/04/20 20:59 Last Admin: 10/05/20 20:55 Dose: 5 mg Documented by: [id number] Dorzolamide HCl (Dorzolamide Hcl 2% Oph Soln 10 Ml Btl) 1 drops OP TID [facility] Stop: 11/04/20 20:59 Last Admin: 10/05/20 20:56 Dose: 1 drops Documented by: [id number] Gabapentin (Gabapentin 600 Mg Tab) 600 mg PO TID [facility] Stop: 11/04/20 20:59 Last Admin: 10/05/20 20:53 Dose: 600 mg Documented by: [id number] Doxycycline Hyclate 100 mg/ (Dextrose) 110 mls @ 50 mls/hr IV Q12H [facility]; Protocol Stop: 10/12/20 16:59 Last Infusion: 10/05/20 19:36 Dose: 0 mls/hr Documented by: [id number] Admin: 10/05/20 17:18 Dose: 50 mls/hr Documented by: [id number] Furosemide 20 mg/ Syringe 2 mls @ 4 mls/min IV [id number] [facility] Stop: 11/04/20 16:59 Last Admin: 10/05/20 17:19 Dose: 4 mls/min Documented by: [id number] Cefepime HCl 2,000 mg/ Syringe 20 mls @ 5 mls/min IV Q8H [facility] Stop: 10/12/20 16:59 Last Admin: 10/06/20 00:14 Dose: 5 mls/min Documented by: [id number] Admin: 10/05/20 17:19 Dose: 5 mls/min Documented by: [id number] Latanoprost (Latanoprost 0.005% Op Soln 2.5 Ml Btl) 1 drops OP PM [facility] Stop: 11/04/20 20:59 Last Admin: 10/05/20 20:56 Dose: 1 drops Documented by: [id number] Metoprolol Tartrate (Metoprolol Tartrate 25 Mg Tab) 25 mg PO BID [facility] Stop: 11/04/20 20:59 Last Admin: 10/05/20 21:00 Dose: 25 mg Documented by: [id number] Sucralfate (Sucralfate 1 Gm Tab) 1 gm PO HS [facility] Stop: 11/04/20 20:59 Last Admin: 10/05/20 20:55 Dose: 1 gm Documented by: [id number] Tamsulosin HCl (Tamsulosin Hcl 0.4 Mg Cap) 0.4 mg PO QPM [facility] Stop: 11/04/20 20:59 Last Admin: 10/05/20 20:52 Dose: 0.4 mg Documented by: [id number] Trazodone HCl (Trazodone Hcl 50 Mg Tab) 150 mg PO HS [facility] Stop: 11/04/20 20:59 Last Admin: 10/05/20 20:54 Dose: 150 mg Documented by: [id number] Trimethoprim/Sulfamethoxazole (Sulfamethoxazole/Trimethoprim Ds 800/160mg Tab) 1 tab PO Q12 [facility] Stop: 11/04/20 20:59 Last Admin: 10/05/20 20:52 Dose: 1 tab Documented by: [id number] Discontinued Medications Albuterol (Albut/Ipratrop 3mg/0.5mg Neb 3 Ml Vial) 12 ml NEB ONE ONE Stop: 10/05/20 09:06 Last Admin: 10/05/20 09:36 Dose: 12 ml Documented by: [id number] Dexamethasone (Dexamethasone Sod Inj 10 Mg/Ml Vial) 10 mg IV NOW ONE Stop: 10/05/20 09:06 Last Admin: 10/05/20 09:26 Dose: 10 mg Documented by: [id number] Furosemide (Furosemide 40 Mg/4 Ml Vial) 20 mg IV NOW STA Stop: 10/05/20 15:09 Last Admin: 10/05/20 17:44 Dose: 20 mg Documented by: [id number] Guaifenesin (Guaifenesin 600 Mg Tabcr) 600 mg PO NOW STA Stop: 10/05/20 09:06 Last Admin: 10/05/20 09:26 Dose: 600 mg Documented by: [id number] Sodium Chloride (Nss) 500 mls @ 999 mls/hr IV .Q31M ONE Stop: 10/05/20 09:30 Last Infusion: 10/05/20 09:58 Dose: 0 mls/hr Documented by: [id number] Admin: 10/05/20 09:26 Dose: 999 mls/hr Documented by: [id number] Ioversol (Optiray 320 125ml) 120 ml IV ONCE ONE Stop: 10/05/20 10:36 Last Admin: 10/05/20 10:35 Dose: 120 ml Documented by: [id number] Discharge Plan Visit Data Chief Complaint: Shortness of Breath/Dyspnea ED Provider: Mango Ayers Discharge Problem: Acute respiratory failure with hypoxia, Bilateral pleural effusion, History of COVID-19 Patient Disposition: Admitted As Inpatient Discharge Instructions Interventions: ED Discharge Assessment Last Done: 10/05/20 13:44
[2020-10-05 10:05] LABS: Albumin Globulin Ratio 0.5 (0.9-2); Alkaline Phosphatase 134 U/L (45-117); Bilirubin,Total 0.1 mg/dl (0.2-1); Globulin 4.8 gm/dl (2.5-4.0); NT Pro B Type Natriuretic Pept 595 pg/ml (0-900); Phosphorus 3.9 mg/dl (2.5-4.9); Troponin I < 0.015 ng/ml (0-0.045)
[2020-10-05] MEDS ORDERED: OPTIRAY 320 125ml IV ONE (10:35)
--- NOTE | 2020-10-05 11:12 | CT Scan Report ---
CT angio chest PE protocol CT DOSE: 429.37 mGy.cm HISTORY: 70 years-old Male with sob, hypoxia, covid+ 12, PE. Acute shortness of breath with Covi d pneumonia TECHNIQUE: Multiple CTA images of the chest were obtained after the intravenous administration of 120 ml Optiray 320. Coronal and sagittal MIPS were obtained from the axial data set and were submitted for review. All measurements were obtained according to NASCET criteria. A dose lowering technique w as utilized adhering to the principles of ALARA. COMPARISON: Chest radiograph of same day, CTA chest 09/03/2020 FINDINGS: CTA: Heart is upper limits of normal in size. Trace pericardial effusion. Extensive coronary artery calcif ications. Mild ectasia of the ascending thoracic aorta, 3.8 cm. No aneurysm or dissection. Descending thoracic aortic tortuosity. The opacified pulmonary artery is unremarkable. No pulmonary embolus. CT CHEST: Unremarkable thyroid. Prominent mediastinal lymph nodes are likely reactive. Moderate to large right and moderate left pleural effusions have increased in size from comparison. There is no pneumothorax. Pulmonary vascular congestion. The previously described diffuse groundglass densities have now coale sced into patchy alveolar opacities with mild intermixed groundglass densities noted within a periphe ral and subpleural predominant distribution. Central airways are patent. Gynecomastia. Unremarkable soft tissues. Ununited right clavicular fracture. Left shoulder arthroplas ty. Chronic right-sided rib fracture deformities. IMPRESSION: 1. No evidence of pulmonary embolus. 2. Moderate to large right and moderate left pleural effusions have increased in size from comparison . 3. Bilateral multilobar distribution of intermixed alveolar and groundglass opacities are compatible with multifocal pneumonia. ACT 112: Negative or not required by law. The above report was generated using voice recognition software. It may contain grammatical, syntax o r spelling errors. Electronically signed by: Kar Ford M.D. 10/05/2020 11:10 AM
[2020-10-05 11:16] LABS: INR 1.2 (0.9-1.1); Partial Thromboplastin Ratio 1.2; Partial Thromboplastin Time 31.5 Seconds (21.0-31.0)
--- NOTE | 2020-10-05 11:49 | Electrocardiogram Report ---
Test Reason : Blood Pressure : / mmHG Vent. Rate : 072 BPM Atrial Rate : 072 BPM P-R Int : 140 ms QRS Dur : 088 ms QT Int : 406 ms P-R-T Axes : 027 021 037 degrees QTc Int : 444 ms Poor data quality, interpretation may be adversely affected Normal sinus rhythm Normal ECG When compared with ECG of 06-SEP-2020 05:10, No significant change was found Confirmed by Alexx Sheffield ([id number]) on 10/05/2020 11:48:45 AM Referred By: REFERRED SELF Confirmed By:Alexx Sheffield
--- NOTE | 2020-10-05 12:36 | History & Physical Report ---
Date of Service October 05, 2020 Assessment & Plan (1) Bilateral pleural effusion: Acute on chronic ?CHF vs. hypoalbuminemia with history of COVID-19 vs. traumatic (recurrent falls, initial pleural effusion following a fall in January). TTE Gentle diuresis with IV lasix 20mg IV BID, daily weights, I&Os, low Na, fluid restricted diet. Consult pulmonology to consider thoracocentesis for diagnosis and therapeutic purposes. (2) Acute respiratory failure with hypoxia: Aim O2 sats > 92% Secondary to b/l pleural effusions and inflammation still left over from COVID- 19. Procalcitonin negative - low suspicion of bacterial pneumonia. (3) History of COVID-19: > 14 days after initial illness. No need for continued isolation. Completed dexamethasone course. (4) Paroxysmal atrial fibrillation: Unclear history of this since he is not on anticoagulation. Patient reports he was told just to take aspirin alone. Currently in NSR and all recent EKGs in NSR (5) Weakness: Multiple falls - even prior to COVID-19 diagnosis. Likely left hip surgeries contributing. PT/OT evals (6) History of hip surgery: Leg length discrepancy following multiple left hip operations. 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 (7) DVT prophylaxis: Pending pulm consult regarding pleurx/thoracocentesis decision. Admission and Anticipated Discharge Date Admission Date: Oct 05, 2020 History of Present Illness Chief Complaint: Shortness of breath, hypoxia Primary Care Provider: NO PCP Brennan Saunders is a 70-year-old male who presents to the ER with worsening shortness of breath after recent COVID-19 pneumonia. He was hospitalized here from September 03-2020 with COVID-19 pneumonia treated with dexamethasone. Procalcitonin was elevated at that time and he also received a course of ceftriaxone and azithromycin to cover for bacterial pneumonia. His previous hospitalization occurred after receiving an experimental monoclonal antibody treatment at [facility] and subsequent quick deterioration after this requiring BiPAP on admission. He subsequently improved and was able to maintain sats on room air but still required 2 L O2 on exertion. He reports after discharge initially doing very well and slowly improving however 2 days ago he woke up much more short of breath with worsening cough. He does report having to sleep in a recliner since his COVID-19 diagnosis. He denies any chest pain, palpitation, presyncope or syncope. No ongoing fever or chills. He has a notable history of atrial fibrillation which he was diagnosed in 2014. He reports being sent in by his PCP and being diagnosed with A. fib in the emergency room. He denies ever being on anticoagulation following this. He reports being told that aspirin was enough. Will recent EKG is in normal sinus rhythm. He denies any recent palpitations, increased leg swelling, claudication, presyncope or syncope. In the ER CTA was negative for PE but showed moderate to large right and moderate left pleural effusions increased from prior in addition to consolidation concerning for multifocal pneumonia. He was requiring 4L O2 in the ER. Therefore referred to medicine for admission and ongoing management of multifocal PNA, recent COVID-19 and hypoxia. Allergies Allergy/AdvReac Type Severity Reaction Status Date / Time No Known Allergies Allergy Unknown Verified 10/05/20 15:43 Home Medications Medication Instructions Recorded Confirmed Type alendronate 70 mg PO WK 01/10/19 10/05/20 History ascorbic acid (vitamin C) [Vitamin 500 mg PO QAM 01/10/19 10/05/20 History C] bupropion HCl 200 mg PO BID 01/10/19 10/05/20 History buspirone 5 mg PO TID 01/10/19 10/05/20 History citalopram 40 mg PO QAM 01/10/19 10/05/20 History saw palmetto 1,000 mg PO QAM 01/10/19 10/05/20 History sulfamethoxazole-trimethoprim 1 tab PO Q12H 01/10/19 10/05/20 History [Bactrim DS] tamsulosin [Flomax] 0.4 mg PO QPM 01/10/19 10/05/20 History aspirin [Aspirin Low Dose] 81 mg PO HS 06/13/19 10/05/20 History dorzolamide 1 drp OPHTHALMIC (EYE) TID 06/13/19 10/05/20 History latanoprost 1 drp OPHTHALMIC (EYE) PM 06/13/19 10/05/20 History brimonidine 1 drp OPHTHALMIC (EYE) TID 07/03/19 10/05/20 History sucralfate [Carafate] 1 gm PO HS 07/03/19 10/05/20 History chlorzoxazone 500 mg tablet 750 mg PO Q6H PRN 08/08/19 10/05/20 History HEEL LIFTS #1 ea 04/24/20 09/15/20 Rx pantoprazole 40 mg PO QAM 08/01/20 10/05/20 History Oxygen Home #1 ea 09/09/20 09/15/20 Rx [id number] 105mg 2 tab PO UD 10/05/20 10/05/20 History Calcium 4325-[id number]-Eozc 1 tab PO QAM 10/05/20 10/05/20 History 15-Vitamin D3 15 gabapentin 600 mg PO TID 10/05/20 10/05/20 History hydrocodone-acetaminophen 1 tab PO QAM 10/05/20 10/05/20 History metoprolol tartrate 25 mg PO BID 10/05/20 10/05/20 History multivitamin 1 tab PO QAM 10/05/20 10/05/20 History omega 8-oxg-gbn-fish oil [Fish Oil] 1 cap PO QAM 10/05/20 10/05/20 History trazodone 150 mg PO HS 10/05/20 10/05/20 History Past Med/Surg History Medical History Anxiety Ascites Chronic back pain Depression Exposure to COVID-19 virus Former smoker GERD (gastroesophageal reflux disease) Glaucoma Hearing deficit hearing aid (left) Hyperlipidemia Leg length discrepancy RLE > LLE s/p multiple left hip revisions (per patient, missing hip joint) due to complications from hip surgery/revisions/MRSA infection- on chronic preventative Bactrim-- uses shoe with elevated heel/crutches Osteoarthritis Peptic ulcer disease 12/2018 Pleural effusion Pneumonia Pneumonia due to 2019 novel coronavirus Restless leg syndrome Shortness of breath Transient ischemic attack (TIA) x1 (~2014) Surgical History H/O eye surgery 2 DRAINAGE TUBES RT/LEFT EYE FOR GLAUCOMA currently in place History of bilateral cataract extraction History of colonoscopy History of esophagogastroduodenoscopy (EGD) History of hip surgery LEFT HIP SURGERY/REVISIONS (TOTAL OF 9 SURGERIES) History of laminectomy L3-L5 laminectomy: 05/12/15: Grade view 1, MAC#3, ETT 8.0 (atraumatic DL x 1) at [facility] History of tonsillectomy and adenoidectomy History of tooth extraction Status post reverse total arthroplasty of left shoulder Family History Other No family history of adverse response to anesthesia No pertinent family history Social History Smoking Status: Former smoker Second Hand Exposure: No; Hx Alcohol Use: Yes Alcohol type: beer and hard liquor Hx Substance Use: No Preferred Language: Citizen Of [place] Communication Ability: Effective Cell Tender Required: No Beliefs That Will Affect Care: None marital status: Current Living Situation: Spouse Feels Safe at Home: Yes Assistive Devices: Crutches and Special Shoe Review of Systems Review of Systems: All systems reviewed & are unremarkable except as noted in HPI & below Physical Exam Constitutional: well developed, + acute distress (Respiratory) and + malnourished Eyes: + anicteric sclerae; normal pupil size ENMT: external ear and nose normal, oropharynx normal Mouth: oral mucous membranes not dry Neck: trachea midline, no thyromegaly Respiratory: + respiratory distress Auscultation: + diminished lung sounds (Mildly reduced right base, surprisingly good air entry given imaging), + crackles (Right apex) and + wheezes (Mild left base); no rhonchi Cardiovascular: Rate/Rhythm: regular rate and regular rhythm Heart Sounds: no murmur Vessels: no JVD Extremities: normal capillary refill and + pedal edema (1+ equal pitting to mid shins); no calf tenderness Gastrointestinal (Abdomen): normal bowel sounds, soft, nontender, no hepatosplenomegaly Musculoskeletal: no cyanosis or clubbing, extremities motor strength 5/5 Skin: no rashes, warm and dry Neurologic: moves all extremities and awake; not confused Psychiatric: A+Ox3, euthymic affect Genitourinary: no CVA tenderness Results & Data Results & Data ([facility]) Vital Signs (Past 12 Hours) Vital Signs Temp Pulse Pulse Resp BP Pulse Ox 10/05/20 11:30 97 H 24 125/85 93 10/05/20 11:27 97 H 25 H 137/74 92 10/05/20 10:30 22 123/68 93 10/05/20 10:00 72 20 105/65 99 10/05/20 09:38 68 32 H 91 10/05/20 09:30 68 19 115/66 94 10/05/20 09:00 70 22 118/64 93 10/05/20 08:49 36.8 C 80 20 130/70 86 L Diagnostic Findings XR chest 1V portable IMPRESSION: 1. Extensive bilateral airspace opacities, mildly progressed within the upper lung zones suggest multifocal pneumonia. 2. Small pleural effusions. CT angio chest PE protocol IMPRESSION: 1. No evidence of pulmonary embolus. 2. Moderate to large right and moderate left pleural effusions have increased in size from comparison. 3. Bilateral multilobar distribution of intermixed alveolar and groundglass opacities are compatible with multifocal pneumonia. Medications Administered ER medications given: NSS 500 mL bolus Dexamethasone 10 mg IV Guaifenesin 600 mg p.o. DuoNeb 12 mL ECG Indication: SOB/dyspnea Rate (beats per minute): 72 Comparison ECG Date: from (September 06, 2020) Change: no significant change Code Status & VTE Plan Code Status Full VTE Prophylaxis Plan VTE Prophylaxis will be ordered: Yes PG Care Time/CCT Total # of Minutes Spent Total Time Spent with Patient: Total time spent is greater than 50% in coordination of care (as documented) at patient's floor/unit and/or counseling patient: Coding Level of Care Code 00116 Initial Inpt Care Lvl 3 Diagnoses Bilateral pleural effusion J90 Acute respiratory failure with hypoxia J96.01 History of COVID-19 Z86.16 Paroxysmal atrial fibrillation I48.0 Weakness R53.1 History of hip surgery Z98.890 DVT prophylaxis Z29.9
[2020-10-05 14:14] LABS: Influenza A virus by PCR Negative (Negative); Influenza B virus by PCR Negative (Negative)
[2020-10-05 14:31] LABS: D Dimer 3860 ug/L FEU (0-500)
--- NOTE | 2020-10-05 14:34 | Procedure Note ---
Procedure Note Date of Service October 05, 2020 Note Procedure: Diagnostic and/or therapeutic ultrasound-guided catheter 8 Sami catheter insertion into the right pleural cavity [employer] Repairer: Dr. Mark Anthony Calloway Indication: Pleural effusion Consent: Signed by patient and verified with timeout prior to procedure Anesthesia: 8 mL's of 1% lidocaine without epinephrine given locally Procedure: Consent was verified and timeout performed. Appropriate imaging studies were reviewed prior to the procedure. Patient was placed in a seated position and limited thoracic ultrasound was performed of the right chest. See separate imaging. The site appropriate for thoracentesis was selected. The skin was prepped and draped in normal sterile fashion. Lidocaine was used for local analgesia. Fluid was aspirated via the finder needle. A small skin lexie was made with the scalpel and the catheter over the needle apparatus was advanced over the rib into the pleural space. The catheter was left in place to Rodriguez bag. Continue gravity drainage overnight. A sterile dressing was applied. Post procedure chest x-ray was ordered. Thus far approximately 700 mL of clear yellow fluid was aspirated Fluid was sent for LDH, total protein, cell count, glucose, pH, cytology, AFB cultures, gram stain and culture and fungal cultures. The patient tolerated the procedure well without obvious complication Chest x-ray is pending. Coding CPT Codes Pulmonary/Thoracic - Pulmonary and Thoracic: 65385 Pleural drainage w/imaging ([id number]) [facility] [place] [facility] [place] Procedure Codes (Charges) Pulmonary/Thoracic Procedure 1: Pulmonary and Thoracic: 45140 Pleural drainage w/imaging
--- NOTE | 2020-10-05 14:48 | Pulmonary Consultation ---
Date of Consultation October 05, 2020 Assessment & Plan (1) Acute respiratory failure with hypoxia: I suspect the patient's hypoxia and shortness of breath are multifactorial likely related to residual COVID-19 inflammation and possibly fibrosis related to ARDS/recent Covid infection. If he does not have significant improvement of symptoms with a trial of gentle IV diuresis and drainage of the right pleural effusion, I would recommend trialing him on 0.5 mg/kg of prednisone to see if there is a steroid responsive component to this lung disease. Recommend continuing to wean his oxygen to maintain saturations of 92 to 94%. Continue to increase activity as tolerated. I would recommend PT and OT consults as he does have chronic hip and shoulder issues. His albumin is quite low and I suspect that his nutrition has been poor. Nutrition consultation may be beneficial. Some of the effusions that we are seeing on a CT chest may also be related to low oncotic pressure. Formal echocardiogram is pending to evaluate his heart function. On my [id number] ultrasound, his LV function appeared to be preserved. A 48-hour trial of antibiotics is reasonable. I would recommend repeating a procalcitonin tomorrow morning. This was discussed with the hospitalist. We will leave the right sided small bore chest tube to gravity drainage to the Rodriguez bag overnight. This can likely be removed tomorrow. Chest x-ray is pending. Thank you for the consult we will continue to follow along with you. (2) Bilateral pleural effusion: (3) History of COVID-19: (4) Shortness of breath: History of Present Illness Reason for Consultation: Hypoxic respiratory failure with recent Covid infection Requesting Physician: Dr. Doron Granados Attending Physician: Dr. Doron Granados History of Present Illness 70-year-old male with a past medical history of atrial fibrillation not on any anticoagulation, prior CVA and depression presenting to the hospital due to increasing shortness of breath and weakness. Patient notes last night that he was needing to sit upright in his chair while sleeping due to shortness of breath. He notes that he has been very weak. He has a mild nonproductive cough. Denies any fevers or chills. He has been using oxygen since his last discharge on 09/09/2020. At that time he was admitted for COVID-19 infection. He actually received monoclonal antibodies at [facility] on 09/03/2020 for COVID-19, but subsequently developed worsening symptoms. He received IV Decadron during his last hospitalization. He was deemed to be out of the window for remdesivir convalescent plasma. He was also treated with a course of IV a ntibiotics for concern of potential superimposed bacterial infection. He was ultimately discharged with 2 L of oxygen via nasal cannula to be worn at all times. Patient notes that his oxygen levels have been dropping to the 60s while wearing nasal cannula. He had a formal echocardiogram performed today with the results pending. I did perform a bedside ultrasound of his right hemithorax and left hemithorax. I also performed a quick [id number] ultrasound of his heart. Small free-flowing effusion was noted on the left with a moderate sized free-flowing pleural effusion on the right. His LV function overall appears preserved. After insertion of the small bore chest tube, the patient did notice improvement in his dyspnea. Chest x-ray is pending. His CBC suggests a mild anemia of ch ronic disease with a hemoglobin of 10.9. Platelet count slightly elevated. INR is 1.2. Renal function is within normal limits. proBNP of 595. Albumin is low at 2.2. Procalcitonin is within normal limits at 0.18. AST and ALT are normal. CT chest imaging with no evidence of pulmonary embolism, bilateral effusions noted. Bilateral multilobar opacities were noted. The opacities do appear more consolidative than the CT chest on 09/03/2020. Allergies Allergy/AdvReac Type Severity Reaction Status Date / Time No Known Allergies Allergy Unknown Verified 09/15/20 10:04 Home Medications Medication Instructions Recorded Confirmed Type alendronate 70 mg PO WK 01/10/19 09/15/20 History ascorbic acid (vitamin C) [Vitamin 500 mg PO QAM 01/10/19 09/15/20 History C] bupropion HCl 100 mg PO QAM 01/10/19 09/15/20 History buspirone 5 mg PO TID 01/10/19 09/15/20 History citalopram 40 mg PO QAM 01/10/19 09/15/20 History gabapentin 400 mg PO BID 01/10/19 09/15/20 History magnesium oxide 400 mg PO QPM 01/10/19 09/15/20 History saw palmetto 1,000 mg PO QAM 01/10/19 09/15/20 History sulfamethoxazole-trimethoprim 1 tab PO Q12H 01/10/19 09/15/20 History [Bactrim DS] tamsulosin [Flomax] 0.4 mg PO QPM 01/10/19 09/15/20 History trazodone 50 mg PO HS 01/10/19 09/15/20 History cyanocobalamin (vitamin B-12) 2,500 mcg SUBLINGUAL QAM 02/17/19 09/15/20 History [Vitamin B-12] aspirin [Aspirin Low Dose] 81 mg PO HS 06/13/19 09/15/20 History dorzolamide 1 drp OPHTHALMIC (EYE) TID 06/13/19 09/15/20 History latanoprost 1 drp OPHTHALMIC (EYE) PM 06/13/19 09/15/20 History brimonidine 1 drp OPHTHALMIC (EYE) TID 07/03/19 09/15/20 History sucralfate [Carafate] 1 gm PO HS 07/03/19 09/15/20 History chlorzoxazone 500 mg tablet 750 mg PO TID 08/08/19 09/15/20 History HEEL LIFTS #1 ea 04/24/20 09/15/20 Rx pantoprazole 40 mg PO QAM 08/01/20 09/15/20 History Oxygen Home #1 ea 09/09/20 09/15/20 Rx hydrocodone-acetaminophen 1 tab PO Q8H PRN #14 tab 09/09/20 09/15/20 Rx Patient History Medical History Anxiety Ascites Chronic back pain Depression Exposure to COVID-19 virus Former smoker GERD (gastroesophageal reflux disease) Glaucoma Hearing deficit hearing aid (left) Hyperlipidemia Leg length discrepancy RLE > LLE s/p multiple left hip revisions (per patient, missing hip joint) due to complications from hip surgery/revisions/MRSA infection- on chronic preventative Bactrim-- uses shoe with elevated heel/crutches Osteoarthritis Peptic ulcer disease 12/2018 Pleural effusion Pneumonia Pneumonia due to 2019 novel coronavirus Restless leg syndrome Transient ischemic attack (TIA) x1 (~2015) Surgical History H/O eye surgery 2 DRAINAGE TUBES RT/LEFT EYE FOR GLAUCOMA currently in place History of bilateral cataract extraction History of colonoscopy History of esophagogastroduodenoscopy (EGD) History of hip surgery LEFT HIP SURGERY/REVISIONS (TOTAL OF 9 SURGERIES) History of laminectomy L3-L5 laminectomy: 05/12/15: Grade view 1, MAC#3, ETT 8.0 (atraumatic DL x 1) at [facility] History of tonsillectomy and adenoidectomy History of tooth extraction Status post reverse total arthroplasty of left shoulder Family History Other No family history of adverse response to anesthesia No pertinent family history Social History Smoking Status: Former smoker Second Hand Exposure: No; Hx Alcohol Use: Yes Alcohol type: beer and hard liquor Hx Substance Use: No Preferred Language: Bengali Communication Ability: Effective Protection Engineer Required: No Beliefs That Will Affect Care: None marital status: Current Living Situation: Spouse Feels Safe at Home: Yes Assistive Devices: Walker Review of Systems Review of Systems: All systems reviewed & are unremarkable except as noted in HPI & below Physical Exam Constitutional: + ill appearing and + thin; no acute distress Eyes: PERRL, conjunctivae normal, anicteric sclerae ENMT: external ear and nose normal, oropharynx normal Neck: trachea midline, no thyromegaly Respiratory: normal respiratory effort, lungs clear to auscultation Cardiovascular: RRR, no murmur, no edema Gastrointestinal (Abdomen): normal bowel sounds, soft, nontender, no hepatosplenomegaly Musculoskeletal: no cyanosis or clubbing, extremities motor strength 5/5 Skin: no rashes, warm and dry Neurologic: PERRL, EOMI, accommodation nl, no face palsy, no dysarthria Psychiatric: A+Ox3, euthymic affect Results & Data Results & Data ([facility]) Vital Signs (Past 12 Hours) Vital Signs Temp Pulse Pulse Resp BP Pulse Ox 10/05/20 13:30 96 H 25 H 136/78 94 10/05/20 13:20 97 10/05/20 13:19 30 H 88 L 10/05/20 13:00 107 H 23 154/84 H 93 10/05/20 12:30 96 H 22 145/80 H 92 10/05/20 12:00 93 H 25 H 120/65 93 10/05/20 11:30 97 H 24 125/85 93 10/05/20 11:27 97 H 25 H 137/74 92 10/05/20 10:30 22 123/68 93 10/05/20 10:00 72 20 105/65 99 10/05/20 09:38 68 32 H 91 10/05/20 09:30 68 19 115/66 94 10/05/20 09:00 70 22 118/64 93 10/05/20 08:49 98.2 F 80 20 130/70 86 L I reviewed the vital signs, labs and imaging as noted above. PG Care Time/CCT Total # of Minutes Spent Total Time Spent with Patient: Total time spent is greater than 50% in coordination of care (as documented) at patient's floor/unit and/or counseling patient: Coding Level of Care Code 56832 Initial Inpt Care Lvl 3 Diagnoses Acute respiratory failure with hypoxia J96.01 Bilateral pleural effusion J90 History of COVID-19 Z86.16 Shortness of breath R06.02 Time Spent (min) 71
[2020-10-05] MEDS ORDERED: ALUMINUM/MAGNESIUM SUSP 30 ML UDC PO PRN (15:05)
[2020-10-05] MEDS ORDERED: POLYETHYLENE (MIRALAX) 17 GM PACK PO PRN (15:05)
[2020-10-05] MEDS ORDERED: ONDANSETRON INJ 2 MG/ML 2 ML VIAL IV PRN (15:05)
[2020-10-05] MEDS ORDERED: ACETAMINOPHEN 325 MG TAB PO PRN (15:05)
[2020-10-05] MEDS ORDERED: FUROSEMIDE 40 MG/4 ML VIAL IV STA (15:08)
[2020-10-05 15:10] LABS: Glucose Pleural Fluid 103 mg/dl
[2020-10-05 15:20] LABS: Amylase Pleural Fluid 37 U/L; LDH Pleural Fluid 132 U/L; Total Protein Pleural Fluid 3.3 g/dl
[2020-10-05 15:41] LABS: Appearance Pleural Fluid CLEAR; Basophils, Fluid 0 %; Color Pleural Fluid STRAW; Eosinophils, Fluid 0 %; Lymphocytes, Fluid 36 %; Mono,Macrophage,Mesothelial 61 %; Neutrophils, Fluid 3 %; RBC Pleural Fluid (A) < 3000 /uL; Source Pleural Fluid RIGHT LUNG; WBC Pleural Fluid (A) 115 /uL
[2020-10-05] MEDS ORDERED: CHLORZOXAZONE 500 MG TAB PO PRN (15:58)
[2020-10-05] MEDS ORDERED: CEFEPIME CONSULT ACTIVE PRN (15:59)
--- NOTE | 2020-10-05 16:30 | XRay Report ---
XR chest 1V portable HISTORY: 70 years-old Male s/p 8f chest tube insertion on right status post placement of a right-derek ed chest tube COMPARISON: Chest radiograph and CTA chest 10/05/2020 TECHNIQUE: Portable AP view of the chest FINDINGS: Status post placement of a smallbore right-sided chest tube distal tip terminating over the lateral r ight lung base. No pneumothorax. Extensive bilateral pulmonary airspace opacities are redemonstrated. There is mildly improved aeration of the lungs from comparison. Small left pleural effusion. Reverse left shoulder total joint arthroplasty. IMPRESSION: 1. Status post placement of a right-sided chest tube with distal tip terminating over the right later al lung base. No pneumothorax. 2. Mildly improved aeration of the lungs. ACT 112: Negative or not required by law. The above report was generated using voice recognition software. It may contain grammatical, syntax o r spelling errors. Electronically signed by: Kar Ford M.D. 10/05/2020 4:29 PM
--- NOTE | 2020-10-05 17:12 | XCELERA ---
[id number] \\[id number]___[id number]
[2020-10-05] MEDS: DOXYCYCLINE HYCLATE 100 MG in DEXTROSE 5% 100 ML IV SCH (17:18)
[2020-10-05] MEDS: FUROSEMIDE 20 MG in SYRINGE 0 ML IV SCH (17:19)
[2020-10-05] MEDS: CEFEPIME 2,000 MG in SYRINGE 0 ML IV SCH (17:19)
[2020-10-05] MEDS: buPROPion HCl 100 MG TABLET PO SCH (17:20)
[2020-10-05 18:26] LABS: Appearance Urine Clear (Clear); Bilirubin Urine Negative (Negative); Blood Urine Negative (Negative); Color Urine Yellow; Glucose Urine UA Negative (Negative); Ketones Urine Negative (Negative); Leukocyte Esterase Urine Negative (Negative); Nitrite Urine Negative (Negative); Protein Urine Negative (Negative); Specific Gravity Urine 1.025 (1.000-1.030); Urobilinogen Urine Negative (Negative); pH Urine 5.5 (4.5-7.5)
[2020-10-05 18:53] LABS: Creatinine Urine Random 34.9 mg/dl; Protein Creatinine Ratio Urine 0.8 (0-0.2); Total Protein Urine Random 29.1 mg/dl (0-11.9)
[2020-10-05] MEDS: TAMSULOSIN HCL 0.4 MG CAP PO SCH (20:52)
[2020-10-05] MEDS: SULFAMETHOXAZOLE/TRIMETHOPRIM DS 800/160MG TAB PO SCH (20:52)
[2020-10-05] MEDS: GABAPENTIN 600 MG TAB PO SCH (20:53)
[2020-10-05] MEDS: OMEGA-3 (PURIFIED FISH OIL) 1 GM CAP PO SCH (20:53)
[2020-10-05] MEDS: traZODone HCL 50 MG TAB PO SCH (20:54)
[2020-10-05] MEDS: SUCRALFATE 1 GM TAB PO SCH (20:55)
[2020-10-05] MEDS: busPIRone 5 MG TAB PO SCH (20:55)
[2020-10-05] MEDS: LATANOPROST 0.005% OP SOLN 2.5 ML BTL OP SCH (20:56)
[2020-10-05] MEDS: DORZOLAMIDE HCL 2% OPH SOLN 10 ML BTL OP SCH (20:56)
[2020-10-05] MEDS: BRIMONIDINE TARTRATE 0.2% 5ML OPB SCH (20:56)
[2020-10-05] MEDS: METOPROLOL TARTRATE 25 MG TAB PO SCH (21:00)
[2020-10-05] MEDS: ASPIRIN 81 MG ECTAB PO SCH (21:01)
[2020-10-05] MEDS: HYDROcodone/ACETAMINOPHEN 10/325 TAB PO PRN (22:27)
[2020-10-06] MEDS: CEFEPIME 2,000 MG in SYRINGE 0 ML IV SCH ×3 (00:14→16:18)
[2020-10-06] MEDS: DOXYCYCLINE HYCLATE 100 MG in DEXTROSE 5% 100 ML IV SCH ×2 (05:02→16:18)
[2020-10-06] MEDS: HYDROcodone/ACETAMINOPHEN 10/325 TAB PO PRN ×4 (05:17→19:31)
[2020-10-06 07:12] LABS: Creatinine Clr Calc Pharmacy 90.3 ml/min; Est GFR (African American) 103.8; Est GFR (Non-African American) 89.6
[2020-10-06] MEDS: BRIMONIDINE TARTRATE 0.2% 5ML OPB SCH ×3 (08:13→20:20)
[2020-10-06] MEDS: DORZOLAMIDE HCL 2% OPH SOLN 10 ML BTL OP SCH ×3 (08:13→20:19)
[2020-10-06] MEDS: OMEGA-3 (PURIFIED FISH OIL) 1 GM CAP PO SCH (08:14)
[2020-10-06] MEDS: FUROSEMIDE 20 MG in SYRINGE 0 ML IV SCH ×2 (08:14→17:06)
[2020-10-06] MEDS: ASCORBIC ACID 500 MG TAB PO SCH (08:15)
[2020-10-06] MEDS: METOPROLOL TARTRATE 25 MG TAB PO SCH ×2 (08:15→20:19)
[2020-10-06] MEDS: MULTIVITAMIN TAB PO SCH (08:15)
[2020-10-06] MEDS: PANTOprazole 40 MG TAB PO SCH (08:15)
[2020-10-06] MEDS: CITALOPRAM 40 MG TAB PO SCH (08:16)
[2020-10-06] MEDS: GABAPENTIN 600 MG TAB PO SCH ×3 (08:16→20:19)
[2020-10-06] MEDS: buPROPion HCl 100 MG TABLET PO SCH ×2 (08:16→17:10)
[2020-10-06] MEDS: SULFAMETHOXAZOLE/TRIMETHOPRIM DS 800/160MG TAB PO SCH (08:16)
--- NOTE | 2020-10-06 08:39 | XRay Report ---
XR chest 1V portable HISTORY: Status post chest tube COMPARISON: Chest 10/05/2020. FINDINGS: Right basilar chest tube terminating in the right lateral lung base. This is unchanged in p osition. Small right pleural effusion has slightly decreased in size. There is also trace left pleura l effusion. Patchy bilateral airspace opacities persist. The heart is stable in size. Questionable ti ny right pneumothorax. No left pneumothorax. The left shoulder prosthesis. Old right clavicle fractur e. IMPRESSION: 1. Right basilar chest tube is unchanged in position. Slight decrease in size in the small right pleu ral effusion. 2. Possible tiny right pneumothorax. 3. Patchy bilateral airspace opacities persist. ACT 112: Negative or not required by law. Electronically signed by: Krzysztof Tang M.D. 10/06/2020 8:38 AM
[2020-10-06] MEDS ORDERED: NON-FORMULARY MEDICATION (Saw Palmetto 500 mg Capsule) PO SCH (09:00)
--- NOTE | 2020-10-06 09:17 | Hospitalist Progress Note ---
Date of Service October 06, 2020 Assessment & Plan (1) Bilateral pleural effusion: ?CHF vs. hypoalbuminemia in setting of recent COVID-19 vs. traumatic (recurrent falls, initial pleural effusion following a fall in January). Gentle diuresis, daily weights, I&Os, low Na, fluid restricted diet. 2-7 pulm performed right thoracentesis with 700ml serous fluid studies sent including LDH, total protein, cell count, glucose, pH, cytology, AFB cultures, gram stain, bacterial and fungal cultures 3.3/7 protein is not > 0.5, 132/365 LDH is not > 0.6, fluid LDH is > 2/3 of 241 Does not meet Light's criteria for exudate Chest tube management per pulmonology team echocardiogram with elevated RVSP 50-60mmHg may need right heart cath for pulmonary hypertension eval (2) Acute respiratory failure with hypoxia: Aim O2 sats > 92% Procalcitonin negative - low suspicion of bacterial pneumonia. 2-8 doing well on room air will finish 5 day course of antibiotics stop bactrim today (3) History of COVID-19: > 14 days after initial illness. No need for continued isolation. (4) Paroxysmal atrial fibrillation: Unclear history of this since he is not on anticoagulation (5) Weakness: Multiple falls. 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 (7) DVT prophylaxis: Pending pulm consult regarding pleurx/thoracocentesis decision. Admission and Anticipated Discharge Date Admission Date: October 05, 2020 Subjective Patient endorsing dyspnea on exertion walking to bathroom. Denies chest pain, cough. Chest tube remains in place with clear yellow output. Remains on 3L oxygen, up from his baseline of 2L. Review of Systems Constitutional: no fever, no chills, no fatigue, no weakness, no anorexia, no weight loss and no weight gain Ear, Nose, Mouth, Throat: no nasal congestion, no sore throat and no dysphagia Respiratory: no cough and no dyspnea Cardiovascular: + dyspnea on exertion; no chest pain, no orthopnea and no palpitations Gastrointestinal: no abdominal pain, no nausea, no vomiting, no hematemesis, no dysphagia, no constipation, no diarrhea/loose stools, no blood in stools and no melena Genitourinary: no dysuria and no hematuria Musculoskeletal: no back pain, no joint pain, no myalgia and no muscle weakness Integumentary: no rash, no lesions, no skin ulcer, no erythema, no dry skin and no pruritus Neurologic: no falls, no localized weakness, no generalized weakness, no numbness, no paresthesia, no tremor(s) and no headache(s) Psychiatric: no depression, no suicidal ideation, no homicidal ideation and no anxiety Endocrine: no cold intolerance and no heat intolerance Hematologic / Lymphatic: no easy bleeding and no easy bruising Physical Exam Constitutional: well developed and well nourished; no acute distress Eyes: PERRL, conjunctivae normal, anicteric sclerae ENMT: Mouth: oral mucous membranes not dry Respiratory: normal respiratory effort; no respiratory distress and no labored breathing Auscultation: lungs clear to auscultation bilaterally; no crackles, no rales, no rhonchi and no wheezes chest tube in right chest with clear yellow output Cardiovascular: Rate/Rhythm: regular rate and regular rhythm Heart Sounds: no murmur and no cardiac rub Vessels: normal peripheral pulses and radial pulses present; no JVD Extremities: no edema Gastrointestinal (Abdomen): Inspection/Auscultation: abdomen normal to inspection and normal bowel sounds; abdomen not distended Percussio n/Palpation: abdomen soft; abdomen nontender, no guarding, abdomen not rigid and no hepatosplenomegaly Musculoskeletal: Head/Neck/Chest: normocephalic and head atraumatic Spine: no cervical spinal tenderness, no cervical muscular tenderness, no thoracic spinal tenderness and no lumbar spinal tenderness Skin: no rashes, warm and dry Neurologic: CN's II-XI intact bilaterally and moves all extremities Motor/Sensory: no tremor and no sensory deficit Psychiatric: Orientation: alert, oriented to person, oriented to place and oriented to time Apperance: appropriately groomed; not disheveled Affect: euthymic affect; no anxious affect and no tearful affect Genitourinary: no Rodriguez catheter Results & Data Results & Data ([facility]) Vital Signs (Past 12 Hours) Vital Signs Temp Pulse Pulse Resp BP Pulse Ox 10/06/20 07:43 36.7 C 92 H 16 113/65 95 10/06/20 05:19 72 93 10/06/20 03:37 37.0 C 69 18 121/78 94 10/05/20 22:30 20 95 10/05/20 22:19 79 Laboratory Results Abnormal lab results 10/05/20 10/05/20 10/05/20 Range/Units 09:18 09:18 09:18 RBC 4.09 L (4.7-6.1) M/uL Hgb 10.9 L (14.0-18.0) g/dL Hct 34.8 L (42-52) % MCHC 31.3 L (32-36) g/dL RDW Std Deviation 48.4 H (36.4-46.3) fL RDW Coeff of Timbo 15.5 H (11.5-14.5) % Plt Count 495 H (130-400) K/uL Lymph # (Auto) 0.80 L (1.2-3.4) K/uL [place] # (Auto) 0.61 H (0.11-0.59) K/uL INR (0.9-1.1) APTT (21.0-31.0) Seconds D-Dimer (0-500) ug/L FEU VBG pH (7.36-7.41) Chloride 109 H (98-107) mmol/L Calcium 8.4 L (8.5-10.1) mg/dl Total Bilirubin 0.1 L (0.2-1) mg/dl Alkaline Phosphatase 134 H (45-117) U/L Lactate Dehydrogenase 365 H (87-241) U/L Albumin 2.2 L (3.4-5.0) gm/dl Globulin 4.8 H (2.5-4.0) gm/dl Albumin/Globulin Ratio 0.5 L (0.9-2) U Random Total Protein (0-11.9) mg/dl Protein/Creatinin Ratio (0-0.2) 10/05/20 10/05/20 10/05/20 Range/Units 09:20 10:54 10:54 RBC (4.7-6.1) M/uL Hgb (14.0-18.0) g/dL Hct (42-52) % MCHC (32-36) g/dL RDW Std Deviation (36.4-46.3) fL RDW Coeff of Timbo (11.5-14.5) % Plt Count (130-400) K/uL Lymph # (Auto) (1.2-3.4) K/uL [place] # (Auto) (0.11-0.59) K/uL INR 1.2 H (0.9-1.1) APTT 31.5 H (21.0-31.0) Seconds D-Dimer 3860 H* (0-500) ug/L FEU VBG pH 7.35 L (7.36-7.41) Chloride (98-107) mmol/L Calcium (8.5-10.1) mg/dl Total Bilirubin (0.2-1) mg/dl Alkaline Phosphatase (45-117) U/L Lactate Dehydrogenase (87-241) U/L Albumin (3.4-5.0) gm/dl Globulin (2.5-4.0) gm/dl Albumin/Globulin Ratio (0.9-2) U Random Total Protein (0-11.9) mg/dl Protein/Creatinin Ratio (0-0.2) 10/05/20 Range/Units 17:54 RBC (4.7-6.1) M/uL Hgb (14.0-18.0) g/dL Hct (42-52) % MCHC (32-36) g/dL RDW Std Deviation (36.4-46.3) fL RDW Coeff of Timbo (11.5-14.5) % Plt Count (130-400) K/uL Lymph # (Auto) (1.2-3.4) K/uL [place] # (Auto) (0.11-0.59) K/uL INR (0.9-1.1) APTT (21.0-31.0) Seconds D-Dimer (0-500) ug/L FEU VBG pH (7.36-7.41) Chloride (98-107) mmol/L Calcium (8.5-10.1) mg/dl Total Bilirubin (0.2-1) mg/dl Alkaline Phosphatase (45-117) U/L Lactate Dehydrogenase (87-241) U/L Albumin (3.4-5.0) gm/dl Globulin (2.5-4.0) gm/dl Albumin/Globulin Ratio (0.9-2) U Random Total Protein 29.1 H (0-11.9) mg/dl Protein/Creatinin Ratio 0.8 H (0-0.2) Medications Administered Current Inpatient Medications Acetaminophen (Acetaminophen 325 Mg Tab) 650 mg PO Q4H PRN PRN Reason: Pain or Fever Stop: 11/04/20 15:04 Hydrocodone Bitart/Acetaminophen (Hydrocodone/Acetaminophen 10/325 Tab) 1 tab PO Q4H PRN PRN Reason: Pain Stop: 10/19/20 15:59 Last Admin: 10/06/20 05:17 Dose: 1 tab Documented by: Al Hydrox/Mg Hydrox/Simethicone (Aluminum/Magnesium Susp 30 Ml Udc) 15 ml PO Q4H PRN PRN Reason: Dyspepsia Stop: 11/04/20 15:04 Ascorbic Acid (Ascorbic Acid 500 Mg Tab) [facility] [place] Stop: 11/05/20 08:59 Last Admin: 10/06/20 08:15 Dose: 500 mg Documented by: Aspirin (Aspirin 81 Mg Ectab) 81 mg PO HS [facility] Stop: 11/04/20 20:59 Last Admin: 10/05/20 21:01 Dose: 81 mg Documented by: Brimonidine Tartrate (Brimonidine Tartrate 0.2% 5ml) 1 drops OPB TID [facility] Stop: 11/04/20 20:59 Last Admin: 10/06/20 08:13 Dose: 1 drops Documented by: Bupropion HCl (Bupropion Hcl 100 Mg Tablet) 200 mg PO BID17 [facility] Stop: 11/04/20 16:59 Last Admin: 10/06/20 08:16 Dose: 200 mg Documented by: Buspirone HCl (Buspirone 5 Mg Tab) 5 mg PO TID [facility] Stop: 11/04/20 20:59 Last Admin: 10/05/20 20:55 Dose: 5 mg Documented by: Chlorzoxazone (Chlorzoxazone 500 Mg Tab) 750 mg PO Q6H PRN PRN Reason: Muscle Spasm Stop: 11/04/20 15:57 Citalopram Hydrobromide (Citalopram 40 Mg Tab) 40 [facility] [place] Stop: 11/05/20 08:59 Last Admin: 10/06/20 08:16 Dose: 40 mg Documented by: Dorzolamide HCl (Dorzolamide Hcl 2% Oph Soln 10 Ml Btl) 1 drops OP TID [facility] Stop: 11/04/20 20:59 Last Admin: 10/06/20 08:13 Dose: 1 drops Documented by: Enoxaparin Sodium (Enoxaparin Inj 40 Mg/0.4 Ml Syr) 40 mg SQ QAM [facility] Stop: 11/05/20 08:59 Fish Oil ([place]ug[place]-3 (Purified Fish Oil) 1 Gm Cap) 1 gm PO QAM [facility] Stop: 11/05/20 08:59 Last Admin: 10/06/20 08:14 Dose: 1 gm Documented by: Gabapentin (Gabapentin 600 Mg Tab) 600 mg PO TID [facility] Stop: 11/04/20 20:59 Last Admin: 10/06/20 08:16 Dose: 600 mg Documented by: Doxycycline Hyclate 100 mg/ (Dextrose) 110 mls @ 50 mls/hr IV Q12H [facility]; Protocol Stop: 10/12/20 16:59 Last Infusion: 10/06/20 06:47 Dose: Infused Documented by: Furosemide 20 mg/ Syringe 2 mls @ 4 mls/min IV BID17 [facility] Stop: 11/04/20 16:59 Last Admin: 10/06/20 08:14 Dose: 4 mls/min Documented by: Cefepime HCl 2,000 mg/ Syringe 20 mls @ 5 mls/min IV Q8H [facility] Stop: 10/12/20 16:59 Last Admin: 10/06/20 08:14 Dose: 5 mls/min Documented by: Latanoprost (Latanoprost 0.005% Op Soln 2.5 Ml Btl) 1 drops OP PM [facility] Stop: 11/04/20 20:59 Last Admin: 10/05/20 20:56 Dose: 1 drops Documented by: Metoprolol Tartrate (Metoprolol Tartrate 25 Mg Tab) 25 mg PO BID [facility] Stop: 11/04/20 20:59 Last Admin: 10/06/20 08:15 Dose: 25 mg Documented by: Miscellaneous Information (Cefepime Consult Active) 1 ea N/A UD PRN PRN Reason: Consult Stop: 11/04/20 15:58 Multivitamins (Multivitamin Tab) 1 tab PO QAM [facility] Stop: 11/05/20 08:59 Last Admin: 10/06/20 08:15 Dose: 1 tab Documented by: Ondansetron HCl (Ondansetron Inj 2 Mg/Ml 2 Ml Vial) 4 mg IV Q6H PRN PRN Reason: Nausea Stop: 11/04/20 15:04 Pantoprazole Sodium (Pantoprazole 40 Mg Tab) 40 mg PO QAM [facility] Stop: 11/05/20 08:59 Last Admin: 10/06/20 08:15 Dose: 40 mg Documented by: Polyethylene Glycol (Polyethylene (Miralax) 17 Gm Pack) 17 gm PO DAILY PRN PRN Reason: Constipation Stop: 11/04/20 15:04 Sucralfate (Sucralfate 1 Gm Tab) 1 gm PO [facility] Stop: 11/04/20 20:59 Last Admin: 10/05/20 20:55 Dose: 1 gm Documented by: Tamsulosin HCl (Tamsulosin Hcl 0.4 Mg Cap) 0.4 mg PO QPM [facility] Stop: 11/04/20 20:59 Last Admin: 10/05/20 20:52 Dose: 0.4 mg Documented by: Trazodone HCl (Trazodone Hcl 50 Mg Tab) 150 mg PO [facility] Stop: 11/04/20 20:59 Last Admin: 10/05/20 20:54 Dose: 150 mg Documented by: Trimethoprim/Sulfamethoxazole (Sulfamethoxazole/Trimethoprim Ds 800/160mg Tab) 1 tab PO Q12 [facility] Stop: 11/04/20 20:59 Last Admin: 10/06/20 08:16 Dose: 1 tab Documented by: PG Care Time/CCT Total # of Minutes Spent Total Time Spent with Patient: Total time spent is greater than 50% in coordination of care (as documented) at patient's floor/unit and/or counseling patient: Coding Level of Care Code 74500 Subseq Hosp Care Lvl 3 Diagnoses Bilateral pleural effusion J90 Acute respiratory failure with hypoxia J96.01 History of COVID-19 Z86.16 Paroxysmal atrial fibrillation I48.0 Weakness R53.1 History of hip surgery Z98.890 DVT prophylaxis Z29.9
[2020-10-06] MEDS: ENOXAPARIN INJ 40 MG/0.4 ML SYR SQ SCH (09:22)
[2020-10-06] MEDS: busPIRone 5 MG TAB PO SCH ×3 (09:23→20:19)
--- NOTE | 2020-10-06 10:32 | Pulmonology Progress Note ---
Date of Service October 06, 2020 Assessment & Plan (1) Pleural effusion: Patient had a 8.5 Malay pigtail catheter inserted 10/05/[address] Calloway Total drainage from the catheter since insertion has been approximately 1800 cc Patient had 50 cc drained overnight and another 100 cc drained this morning Patient repositioned with no increased drainage Chest x-ray this morning with question of very subtle right apical pneumothorax We will keep the pigtail catheter in for now to gravity. Repeat chest x-ray in the morning Pathology as well as laboratory analysis is currently pending (2) Acute respiratory failure with hypoxia: Respiratory status is improved since thoracentesis/pigtail catheter Currently patient is mid 90s on 2 L/min by nasal cannula Procalcitonin 0.18 Empirically being treated with Bactrim, doxycycline, cefepime Consider de-escalating antibiotics Blood cultures x2 are negative. No sputum culture collected. No organisms seen in pleural fluid. 1800 cc of pleural fluid evacuated No leukocytosis or fever. No hemoptysis. No significant sputum production with cough. No eosinophilia on differential Echocardiogram completed. Left ventricular systolic function is normal. Patient does have elevated right ventricular systolic pressure of 50 to 60 mmHg. No other significant valvular heart disease (3) History of COVID-19: Last positive Covid test was 09/03/2020 Currently not on contact precautions. No cough. No fever. Could have postinflammatory type process from Covid contributing to his shortness of breath on admission Currently not on any steroids (4) Shortness of breath: Improved with pigtail catheter insertion No evidence of infection at this point Possible postinflammatory process from COVID-19 4 weeks ago We will hold off on steroids at this time as patient seems to be improving Continue to titrate supplemental oxygen to maintain SaO2 of 92 to 94% as tolerated Thank you for including us in the care of this patient we will continue to follow along with you. Admission and Anticipated Discharge Date Admission Date: October 05, 2020 Subjective Attending: Dr. Spaulding Patient seen and examined at bedside. He has had no difficulty with pigtail catheter insertion site. He drained a total of approximately 1600 cc since insertion. In discussion with the RN caring for the patient, he had 50 cc out overnight. There is another 100 cc in the catheter bag this morning. Patient has no discomfort. He has no shortness of breath. He denies cough. He has no fever, chills, sweats, rigors. He denies any hemoptysis. He has no other acute complaints at this time. Review of Systems Review of Systems: All systems reviewed & are unremarkable except as noted in Subjective Physical Exam Physical Exam: GENERAL : No acute distress. Pleasant. No conversational dyspnea EYES: No icterus, gaze conjugate NOSE: No evidence of epistaxis MOUTH: No lesions or candidiasis. Mucosa is moist. Tongue midline. NECK: Supple LUNGS: Fine crackles at bilateral bases. Diaphragmatic [place] is less than 10 cm. HEART: Regular, rate controlled ABDOMEN: Soft, NT, ND, BS Present EXTREMITIES: No LE edema, pedal pulses intact NEURO: A&OX3 Results & Data Results & Data ([facility]) Vital Signs (Past 12 Hours) Vital Signs Temp Pulse Resp BP Pulse Ox 10/06/20 07:43 36.7 C 92 H 16 113/65 95 10/06/20 05:19 72 93 10/06/20 03:37 37.0 C 69 18 121/78 94 10/05/20 22:30 20 95 Laboratory Results 10/05/20 09:18 10/06/20 06:18 Diagnostic Findings XR chest 1V portable 10/06/2020 HISTORY: Status post chest tube COMPARISON: Chest 10/05/2020. FINDINGS: Right basilar chest tube terminating in the right lateral lung base. This is unchanged in position. Small right pleural effusion has slightly decreas ed in size. There is also trace left pleural effusion. Patchy bilateral airspace opacities persist. The heart is stable in size. Questionable tiny right pneumothorax. No left pneumothorax. The left shoulder prosthesis. Old right clavicle fracture. IMPRESSION: 1. Right basilar chest tube is unchanged in position. Slight decrease in size in the small right pleural effusion. 2. Possible tiny right pneumothorax. 3. Patchy bilateral airspace opacities persist. Electronically signed by: Krzysztof Tang M.D. 10/06/2020 8:38 AM PG Care Time/CCT Total # of Minutes Spent Total Time Spent with Patient: Total time spent is greater than 50% in coordination of care (as documented) at patient's floor/unit and/or counseling patient:25 minutes Coding Level of Care Code 11192 Subseq Hosp Care Lvl 2 Diagnoses Pleural effusion J90 Acute respiratory failure with hypoxia J96.01 History of COVID-19 Z86.16 Shortness of breath R06.02
[2020-10-06] MEDS: TAMSULOSIN HCL 0.4 MG CAP PO SCH (20:19)
[2020-10-06] MEDS: ASPIRIN 81 MG ECTAB PO SCH (20:19)
[2020-10-06] MEDS: traZODone HCL 50 MG TAB PO SCH (20:19)
[2020-10-06] MEDS: SUCRALFATE 1 GM TAB PO SCH (20:19)
[2020-10-06] MEDS: LATANOPROST 0.005% OP SOLN 2.5 ML BTL OP SCH (20:20)
[2020-10-07] MEDS: CEFEPIME 2,000 MG in SYRINGE 0 ML IV SCH ×3 (01:17→17:03)
[2020-10-07] MEDS: HYDROcodone/ACETAMINOPHEN 10/325 TAB PO PRN ×5 (01:18→19:38)
[2020-10-07] MEDS: DOXYCYCLINE HYCLATE 100 MG in DEXTROSE 5% 100 ML IV SCH ×2 (04:54→17:03)
[2020-10-07 07:38] LABS: Hematocrit (blood only) 34.3 % (42-52); Hemoglobin 10.8 g/dL (14.0-18.0); Mean Corpuscular Hemoglobin 26.7 pg (25-34); Mean Corpuscular Hgb Conc 31.5 g/dL (32-36); Mean Corpuscular Volume 84.7 fL (80-100); Mean Platelet Volume 8.6 fL (7.4-10.4); Platelet Count 529 K/uL (130-400); RDW Coefficient of Variation 15.7 % (11.5-14.5); RDW Standard Deviation 48.6 fL (36.4-46.3); Red Blood Count 4.05 M/uL (4.7-6.1); White Blood Count 6.13 K/uL (4.8-10.8)
--- NOTE | 2020-10-07 08:03 | Hospitalist Progress Note ---
Date of Service October 07, 2020 Assessment & Plan (1) Bilateral pleural effusion: ?CHF vs. hypoalbuminemia in setting of recent COVID-19 vs. traumatic (recurrent falls, initial pleural effusion following a fall in January). Gentle diuresis, daily weights, I&Os, low Na, fluid restricted diet. 2-7 pulm performed right thoracentesis with 700ml serous fluid studies sent including LDH, total protein, cell count, glucose, pH, cytology, AFB cultures, gram stain, bacterial and fungal cultures 3.3/7 protein is not > 0.5, 132/365 LDH is not > 0.6, fluid LDH is > 2/3 of 241 Does not meet Light's criteria for exudate Chest tube management per pulmonology team echocardiogram with elevated RVSP 50-60mmHg may need right heart cath for pulmonary hypertension eval 2-9 chest tube pulled today (2) Acute respiratory failure with hypoxia: Aim O2 sats > 92% Procalcitonin negative - low suspicion of bacterial pneumonia. 2-8 doing well on room air will finish 5 day course of antibiotics stop bactrim today (3) History of COVID-19: > 14 days after initial illness. No need for continued isolation. (4) Paroxysmal atrial fibrillation: Unclear history of this since he is not on anticoagulation (5) Weakness: Multiple falls. 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 (7) DVT prophylaxis: Pending pulm consult regarding pleurx/thoracocentesis decision. Admission and Anticipated Discharge Date Admission Date: October 05, 2020 Subjective Patient feels winded when he is walking. He pulled the chest tube out this morning. Tolerated well, no chest pain, only minimal drainage afterwards. States that when he is at home, he desaturates when he oxygen is off. Stated that he needs longer tubing so that he doesn't ever remove the oxygen. Review of Systems Constitutional: no fever, no chills, no fatigue, no weakness, no anorexia, no weight loss and no weight gain Ear, Nose, Mouth, Throat: no nasal congestion, no sore throat and no dysphagia Respiratory: no cough and no dyspnea Cardiovascular: + dyspnea on exertion; no chest pain, no orthopnea and no palpitations Gastrointestinal: no abdominal pain, no nausea, no vomiting, no hematemesis, no dysphagia, no constipation, no diarrhea/loose stools, no blood in stools and no melena Genitourinary: no dysuria and no hematuria Musculoskeletal: no back pain, no joint pain, no myalgia and no muscle wea kness Integumentary: no rash, no lesions, no skin ulcer, no erythema, no dry skin and no pruritus Neurologic: no falls, no localized weakness, no generalized weakness, no numbness, no paresthesia, no tremor(s) and no headache(s) Psychiatric: no depression, no suicidal ideation, no homicidal ideation and no anxiety Endocrine: no cold intolerance and no heat intolerance Hematologic / Lymphatic: no easy bleeding and no easy bruising Physical Exam Constitutional: well developed and well nourished; no acute distress Eyes: PERRL, conjunctivae normal, anicteric sclerae ENMT: Mouth: oral mucous membranes not dry Respiratory: normal respiratory effort (wearing 2L oxygen); no respiratory distress and no labored breathing Auscultation: lungs clear to auscultation bilaterally; no crackles, no rales, no rhonchi and no wheezes chest tube pulled, site covered with bandaids Cardiovascular: Rate/Rhythm: regular rate and regular rhythm Heart Sounds: no murmur and no cardiac rub Vessels: normal peripheral pulses and radial pulses present; no JVD Extremities: no edema Gastrointestinal (Abdomen): Inspection/Auscultation: abdomen normal to inspection and normal bowel sounds; abdomen not distended Percussion/Palpation: abdomen soft; abdomen nontender, no guarding, abdomen not rigid and no hepatosplenomegaly Musculoskeletal: Head/Neck/Chest: normocephalic and head atraumatic Spine: no cervical spinal tenderness, no cervical muscular tenderness, no thoracic spinal tenderness and no lumbar spinal tenderness Skin: no rashes, warm and dry Neurologic: CN's II-XI intact bilaterally and moves all extremities Motor/Sensory: no tremor and no sensory deficit Psychiatric: Orientation: alert, oriented to person, oriented to place and oriented to time Apperance: appropriately groomed; not disheveled Affect: euthymic affect; no anxious affect and no tearful affect Results & Data Results & Data ([facility]) Vital Signs (Past 12 Hours) Vital Signs Temp Pulse Pulse Resp BP BP Pulse Ox 10/07/20 07:27 67 02/09/21 07:00 36.5 C 77 18 127/76 98 10/07/20 06:00 94 10/07/20 01:44 84 10/06/20 22:48 36.7 C 70 16 119/73 94 10/06/20 20:18 90 125/75 Laboratory Results Abnormal lab results 10/07/20 Range/Units 06:31 RBC 4.05 L (4.7-6.1) M/uL Hgb 10.8 L (14.0-18.0) g/dL Hct 34.3 L (42-52) % MCHC 31.5 L (32-36) g/dL RDW Std Deviation 48.6 H (36.4-46.3) fL RDW Coeff of Timbo 15.7 H (11.5-14.5) % Plt Count 529 H (130-400) K/uL Medications Administered Current Inpatient Medications Acetaminophen (Acetaminophen 325 Mg Tab) 650 mg PO Q4H PRN PRN Reason: Pain or Fever Stop: 11/04/20 15:04 Hydrocodone Bitart/Acetaminophen (Hydrocodone/Acetaminophen 10/325 Tab) 1 tab PO Q4H PRN PRN Reason: Pain Stop: 10/19/20 15:59 Last Admin: 10/07/20 07:05 Dose: 1 tab Documented by: Al Hydrox/Mg Hydrox/Simethicone (Aluminum/Magnesium Susp 30 Ml Udc) 15 ml PO Q4H PRN PRN Reason: Dyspepsia Stop: 11/04/20 15:04 Ascorbic Acid (Ascorbic Acid 500 Mg Tab) 500 mg PO QAM [facility] Stop: 11/05/20 08:59 Last Admin: 10/06/20 08:15 Dose: 500 mg Documented by: Aspirin (Aspirin 81 Mg Ectab) 81 mg PO HS [facility] Stop: 11/04/20 20:59 Last Admin: 10/06/20 20:19 Dose: 81 mg Documented by: Brimonidine Tartrate (Brimonidine Tartrate 0.2% 5ml) 1 drops OPB TID [facility] Stop: 11/04/20 20:59 Last Admin: 10/06/20 20:20 Dose: 1 drops Documented by: Bupropion HCl (Bupropion Hcl 100 Mg Tablet) 200 mg PO BID17 [facility] Stop: 11/04/20 16:59 Last Admin: 10/06/20 17:10 Dose: 200 mg Documented by: Buspirone HCl (Buspirone 5 Mg Tab) 5 mg PO TID [facility] Stop: 11/04/20 20:59 Last Admin: 10/06/20 20:19 Dose: 5 mg Documented by: Chlorzoxazone (Chlorzoxazone 500 Mg Tab) 750 mg PO Q6H PRN PRN Reason: Muscle Spasm Stop: 11/04/20 15:57 Citalopram Hydrobromide (Citalopram 40 Mg Tab) 40 mg PO QAM [facility] Stop: 11/05/20 08:59 Last Admin: 10/06/20 08:16 Dose: 40 mg Documented by: Dorzolamide HCl (Dorzolamide Hcl 2% Oph Soln 10 Ml Btl) 1 drops OP TID [facility] Stop: 11/04/20 20:59 Last Admin: 10/06/20 20:19 Dose: 1 drops Documented by: Enoxaparin Sodium (Enoxaparin Inj 40 Mg/0.4 Ml Syr) 40 mg SQ QAM [facility] Stop: 11/05/20 08:59 Last Admin: 10/06/20 09:22 Dose: 40 mg Documented by: Fish Oil ([place]-3 (Purified Fish Oil) 1 Gm Cap) 1 gm PO QAM [facility] Stop: 11/05/20 08:59 Last Admin: 10/06/20 08:14 Dose: 1 gm Documented by: Gabapentin (Gabapentin 600 Mg Tab) 600 mg PO TID [facility] Stop: 11/04/20 20:59 Last Admin: 10/06/20 20:19 Dose: 600 mg Documented by: Doxycycline Hyclate 100 mg/ (Dextrose) 110 mls @ 50 mls/hr IV Q12H [facility]; Protocol Stop: 10/12/20 16:59 Last Infusion: 10/07/20 07:05 Dose: Infused Documented by: Furosemide 20 mg/ Syringe 2 mls @ 4 mls/min IV BID17 [facility] Stop: 11/04/20 16:59 Last Admin: 10/06/20 17:06 Dose: 4 mls/min Documented by: Cefepime HCl 2,000 mg/ Syringe 20 mls @ 5 mls/min IV Q8H [facility] Stop: 10/12/20 16:59 Last Admin: 10/07/20 01:17 Dose: 5 mls/min Documented by: Latanoprost (Latanoprost 0.005% Op Soln 2.5 Ml Btl) 1 drops OP PM [facility] Stop: 11/04/20 20:59 Last Admin: 10/06/20 20:20 Dose: 1 drops Documented by: Metoprolol Tartrate (Metoprolol Tartrate 25 Mg Tab) 25 mg PO BID [facility] Stop: 11/04/20 20:59 Last Admin: 10/06/20 20:19 Dose: 25 mg Documented by: Miscellaneous Information (Cefepime Consult Active) 1 ea N/A UD PRN PRN Reason: Consult Stop: 11/04/20 15:58 Multivitamins (Multivitamin Tab) 1 [facility] Stop: 11/05/20 08:59 Last Admin: 10/06/20 08:15 Dose: 1 tab Documented by: Ondansetron HCl (Ondansetron Inj 2 Mg/Ml 2 Ml Vial) 4 mg IV Q6H PRN PRN Reason: Nausea Stop: 11/04/20 15:04 Pantoprazole Sodium (Pantoprazole 40 Mg Tab) 40 [facility] Stop: 11/05/20 08:59 Last Admin: 10/06/20 08:15 Dose: 40 mg Documented by: Polyethylene Glycol (Polyethylene (Miralax) 17 Gm Pack) 17 gm PO DAILY PRN PRN Reason: Constipation Stop: 11/04/20 15:04 Sucralfate (Sucralfate 1 Gm Tab) 1 gm PO [facility] Stop: 11/04/20 20:59 Last Admin: 10/06/20 20:19 Dose: 1 gm Documented by: Tamsulosin HCl (Tamsulosin Hcl 0.4 Mg Cap) 0.4 mg PO QPM [facility] Stop: 11/04/20 20:59 Last Admin: 10/06/20 20:19 Dose: 0.4 mg Documented by: Trazodone HCl (Trazodone Hcl 50 Mg Tab) 150 mg PO [facility] Stop: 11/04/20 20:59 Last Admin: 10/06/20 20:19 Dose: 150 mg Documented by: PG Care Time/CCT Total # of Minutes Spent Total Time Spent with Patient: Total time spent is greater than 50% in coordination of care (as documented) at patient's floor/unit and/or counseling patient: Coding Level of Care Code 46161 Subseq Hosp Care Lvl 2 Diagnoses Bilateral pleural effusion J90 Acute respiratory failure with hypoxia J96.01 History of COVID-19 Z86.16 Paroxysmal atrial fibrillation I48.0 Weakness R53.1 History of hip surgery Z98.890 DVT prophylaxis Z29.9
[2020-10-07 08:08] LABS: Calcium 9.1 mg/dl (8.5-10.1); Creatinine Clr Calc Pharmacy 84.2 ml/min; Est GFR (African American) 101.8; Est GFR (Non-African American) 87.9; Magnesium 2.1 mg/dl (1.8-2.4)
[2020-10-07 08:09] LABS: Phosphorus 3.5 mg/dl (2.5-4.9)
--- NOTE | 2020-10-07 08:15 | Pulmonology Progress Note ---
Date of Service October 07, 2020 Assessment & Plan (1) Pleural effusion: Patient had a 8.5 Persian pneumothorax catheter inserted 10/05/[address] Calloway Total drainage from the catheter since insertion has been approximately 1800 cc Chest tube found to be dislodged this morning. It was removed at bedside without complication. 2 view chest x-ray with no reaccumulation of fluid or pneumothorax Pathology showed rare epithelial cells and no evidence of malignancy and pleural fluid At this time we will not replace pigtail catheter. No need for further invasive treatment Consider continued diuresis. (2) Acute respiratory failure with hypoxia: Respiratory status is improved since thoracentesis/and pneumothorax catheter Currently patient is mid 90s on 2 L/min by nasal cannula Procalcitonin 0.18 Empirically continued on doxycycline and cefepime. Bactrim discontinued yesterday Blood cultures x2 are negative. No sputum culture collected. No organisms seen in pleural fluid. 1800 cc of pleural fluid evacuated No leukocytosis or fever. No hemoptysis. No significant sputum production with cough. No eosinophilia on differential Echocardiogram completed. Left ventricular systolic function is normal. Patient does have elevated right ventricular systolic pressure of 50 to 60 mmHg. No other significant valvular heart disease Chest x-ray is pending this morning. (3) History of COVID-19: Last positive Covid test was 09/03/2020 Currently not on contact precautions. No cough. No fever. Could have postinflammatory type process from Covid contributing to his shortness of breath on admission Currently not on any steroids Chest x-ray pending this morning (4) Shortness of breath: Improved with pneumothorax catheter insertion No evidence of infection at this point Possible postinflammatory process from COVID-19 4 weeks ago We will hold off on steroids at this time as patient seems to be improving Continue to titrate supplemental oxygen to maintain SaO2 of 92 to 94% as tolerated Thank you for including us in the care of this patient. Pulmonary will sign off at this time. Please feel free to reconsult as needed. Admission and Anticipated Discharge Date Admission Date: October 05, 2020 Supervising Physician Co-Signing Physician Notes Seen and examined. Discussed with critical care GONZALEZ. Imaging independently reviewed. The patient inadvertently had his chest drain removed last night. Follow-up chest x-ray demonstrates no pneumothorax and no significant reaccumulation of pleural fluid. The patient is doing well without respiratory complaints currently. He is saturating well on 2 L nasal cannula. Pleural fluid cytology is negative. Fluid is monocytic transudate. Likely related to low oncotic pressure and underlying lung disease. No additional work-up is needed. Diuresis as tolerated. Patient has evidence of pulmonary hypertension on echocardiogram with increased estimated pressures however the right ventricle systolic function and morphology were normal. I suspect this is WHO class II and III. Secondary to underlying cardiopulmonary disease. No indication for right heart catheterization at this point time. Diuretics are recommended. Could consider outpatient PFTs when the patient is stable. We will sign off at this point time. Feel free to contact us if we can be of additional assistance. Subjective Attending: Dr. Spaulding Patient seen and examined at bedside. On examination, I found that the 8.5 F rench pneumothorax catheter had dislodged and removed at bedside without complication or sequela. Patient denies any significant shortness of breath. He is still on 2 L/min via nasal cannula. He has no chest pain or tightness. He has no significant cough. He denies any sputum production. He has no hemoptysis. He has no new acute complaints. Review of Systems Review of Systems: All systems reviewed & are unremarkable except as noted in Subjective Physical Exam Physical Exam: GENERAL : No acute distress EYES: No icterus, gaze conjugate NOSE: No evidence of epistaxis. Nasal cannula in place and secure MOUTH: No lesions or candidiasis. Mucosa is moist NECK: Supple LUNGS: Some coarse rales at the bases bilaterally. No appreciation of bronchospasm. No rhonchi. Good inspiratory effort. No induced cough with deep breath. HEART: Regular, rate controlled ABDOMEN: Soft, NT, ND, BS Present EXTREMITIES: No LE edema, pedal pulses intact NEURO: A&OX3 Results & Data Results & Data ([facility]) Vital Signs (Past 12 Hours) Vital Signs Temp Pulse Pulse Resp BP BP Pulse Ox 10/07/20 07:27 67 10/07/20 07:00 36.5 C 77 18 127/76 98 10/07/20 06:00 94 10/07/20 01:44 84 10/06/20 22:48 36.7 C 70 16 119/73 94 10/06/20 20:18 90 125/75 Laboratory Results 10/07/20 06:31 10/07/20 06:31 Diagnostic Findings 2 view chest x-ray is pending PG Care Time/CCT Total # of Minutes Spent Total Time Spent with Patient: Total time spent is greater than 50% in coordination of care (as documented) at patient's floor/unit and/or counseling patient:25 minutes Coding Level of Care Code 47726 Subseq Hosp Care Lvl 3 Diagnoses Pleural effusion J90 Acute respiratory failure with hypoxia J96.01 History of COVID-19 Z86.16 Shortness of breath R06.02 Time Spent (min) 25
[2020-10-07] MEDS: BRIMONIDINE TARTRATE 0.2% 5ML OPB SCH ×3 (08:35→19:39)
[2020-10-07] MEDS: DORZOLAMIDE HCL 2% OPH SOLN 10 ML BTL OP SCH ×3 (08:36→19:39)
[2020-10-07] MEDS: CITALOPRAM 40 MG TAB PO SCH (08:36)
--- NOTE | 2020-10-07 08:36 | XRay Report ---
TWO VIEW CHEST CLINICAL HISTORY: Chest tube removal. FINDINGS: AP and lateral chest radiographs are compared to study dated 10/06/2020. Correlation is made with chest CT dated 10/05/2020. The AP view is degraded by patient rotation. The heart is enlarged noti ng atherosclerotic calcification of the thoracic aorta. There is pulmonary vascular congestion. Multi focal airspace consolidation is again seen throughout both lungs. This is similar to yesterday. There are small pleural effusions with bibasilar consolidation. A pigtail catheter at the right lung base has been removed. There is no pneumothorax. The skeletal structures are osteopenic. A left shoulder a rthroplasty is in place. IMPRESSION: 1. A pigtail catheter at the right lung base has been removed. No pneumothorax is identified. 2. Multifocal airspace consolidation throughout both lungs is similar in appearance to yesterday. 3. Pleural effusions with bibasilar consolidation are also not significantly changed. 4. Cardiomegaly with mild pulmonary vascular congestion ACT 112: Negative or not required by law. Electronically signed by: Shade Guerin M.D. 10/07/2020 8:35 AM
[2020-10-07] MEDS: ASCORBIC ACID 500 MG TAB PO SCH (08:37)
[2020-10-07] MEDS: OMEGA-3 (PURIFIED FISH OIL) 1 GM CAP PO SCH (08:37)
[2020-10-07] MEDS: buPROPion HCl 100 MG TABLET PO SCH ×2 (08:37→17:00)
[2020-10-07] MEDS: METOPROLOL TARTRATE 25 MG TAB PO SCH (08:37)
[2020-10-07] MEDS: GABAPENTIN 600 MG TAB PO SCH ×3 (08:37→19:41)
[2020-10-07] MEDS: busPIRone 5 MG TAB PO SCH ×3 (08:38→19:40)
[2020-10-07] MEDS: PANTOprazole 40 MG TAB PO SCH (08:38)
[2020-10-07] MEDS: MULTIVITAMIN TAB PO SCH (08:38)
[2020-10-07] MEDS: FUROSEMIDE 20 MG in SYRINGE 0 ML IV SCH ×2 (08:39→17:03)
[2020-10-07] MEDS: ENOXAPARIN INJ 40 MG/0.4 ML SYR SQ SCH (08:39)
--- NOTE | 2020-10-07 14:38 | Cardiology Consultation ---
Date of Consultation October 07, 2020 Assessment & Plan (1) Mobitz type 1 second degree AV block: (2) Pleural effusion: (3) Shortness of breath: (4) Paroxysmal atrial fibrillation: (5) History of COVID-19: 70-year-old man with history of paroxysmal atrial fibrillation years ago admitted with respiratory complaints which responded to thoracentesis, noted to have transient asymptomatic heart block on telemetry. At this point, tracing strips appear to be Mobitz type I second-degree AV block, although the small possibility of Mobitz type II cannot be definitively excluded. Since he has had no recurrence of atrial fibrillation while on telemetry and clinically has had no recurrence of atrial fibrillation at home for many years and since he is now demonstrating potentially significant heart block, I discontinued his metoprolol. Multiple other current medications have been at times associated with bradycardia, including his hydrocodone, bupropion, gabapentin, and even trazodone. In each case, these are rare or relatively minor effects, making it fairly unlikely he will have recurrent heart block once his metoprolol is discontinued. No indication for pacemaker in the absence of longer pauses or significant associated symptoms. However, if he does develop recurrent atrial fibrillation and require a negative chronotropic, he would fit the definition of tachybradycardia syndrome and might then require both a pacemaker and reintroduction of beta-blockers. History of Present Illness Reason for Consultation: Transient heart block Requesting Physician: Cassandra Reyes MD Attending Physician: Cassandra Valero MD History of Present Illness 70-year-old man with history of paroxysmal atrial fibrillation several years ago, no other cardiac history, who was admitted with respiratory distress secondary to COVID-19 pneumonia last month, now again admitted after progressive dyspneic symptoms. Evaluation demonstrated significant pleural effusions for which he underwent thoracentesis/pleural catheter placement. Admission ECG showed sinus rhythm at 72 bpm and was unremarkable. He had no cardiac complaints or issues during his first several days of hospitalization, however overnight he had several brief episodes of second-degree heart block. There were 3 episodes in total, each resulted in a single dropped beat without significant bradycardia, careful measurement of the telemetry tracing suggests incrementally increasing CO interval (in one example 0.13, 0.15, 0.18 seconds) which is most consistent with Mobitz type I second-degree AV block. Aside from the transient heart block, telemetry showed only sinus rhythm or mild sinus tachycardia, no episodes of atrial fibrillation. Patient's presenting complaint was dyspnea on exertion, he notes marked improvement with thoracentesis. He also noted orthopnea with possible PND and a mild nonproductive cough. No recent fever or chills. No chest discomfort or subjective palpitations. No presyncope or syncope. An echocardiogram this admission showed normal left ventricular systolic func tion (EF 60-65%) with a large right pleural effusion, no significant valvular disease, moderate pulmonary hypertension (RV systolic pressure 50-60 mmHg). At the time of my evaluation, the patient was sitting comfortably watching television. He had no complaints. He was looking forward to potentially going home tomorrow. Allergies Allergy/AdvReac Type Severity Reaction Status Date / Time No Known Allergies Allergy Unknown Verified 10/05/20 15:43 Home Medications Medication Instructions Recorded Confirmed Type alendronate 70 mg PO WK 01/10/19 10/05/20 History ascorbic acid (vitamin C) [Vitamin 500 mg PO QAM 01/10/19 10/05/20 History C] bupropion HCl 200 mg PO BID 01/10/19 10/05/20 History buspirone 5 mg PO TID 01/10/19 10/05/20 History citalopram 40 mg PO QAM 01/10/19 10/05/20 History saw palmetto 1,000 mg PO QAM 01/10/19 10/05/20 History sulfamethoxazole-trimethoprim 1 tab PO Q12H 01/10/19 10/05/20 History [Bactrim DS] tamsulosin [Flomax] 0.4 mg PO QPM 01/10/19 10/05/20 History aspirin [Aspirin Low Dose] 81 mg PO HS 06/13/19 10/05/20 History dorzolamide 1 drp OPHTHALMIC (EYE) TID 06/13/19 10/05/20 History latanoprost 1 drp OPHTHALMIC (EYE) PM 06/13/19 10/05/20 History brimonidine 1 drp OPHTHALMIC (EYE) TID 07/03/19 10/05/20 History sucralfate [Carafate] 1 gm PO HS 07/03/19 10/05/20 History chlorzoxazone 500 mg tablet 750 mg PO Q6H PRN 08/08/19 10/05/20 History HEEL LIFTS #1 ea 04/24/20 09/15/20 Rx pantoprazole 40 mg PO QAM 08/01/20 10/05/20 History Oxygen Home #1 ea 09/09/20 09/15/20 Rx [id number] 105mg 2 tab PO UD 10/05/20 10/05/20 History Calcium [id number] 1 tab PO QAM 10/05/20 10/05/20 History 15-Vitamin D3 15 gabapentin 600 mg PO TID 10/05/20 10/05/20 History hydrocodone-acetaminophen 1 tab PO QAM 10/05/20 10/05/20 History metoprolol tartrate 25 mg PO BID 10/05/20 10/05/20 History multivitamin 1 tab PO QAM 10/05/20 10/05/20 History omega 9-jaq-nlf-fish oil [Fish Oil] 1 cap PO QAM 10/05/20 10/05/20 History trazodone 150 mg PO HS 10/05/20 10/05/20 History Patient History Medical History Anxiety Ascites Chronic back pain Depression Exposure to COVID-19 virus Former smoker GERD (gastroesophageal reflux disease) Glaucoma Hearing deficit hearing aid (left) Hyperlipidemia Leg length discrepancy RLE > LLE s/p multiple left hip revisions (per patient, missing hip joint) due to complications from hip surgery/revisions/MRSA infection- on chronic preventative Bactrim-- uses shoe with elevated heel/crutches Osteoarthritis Peptic ulcer disease 12/2018 Pleural effusion Pneumonia Pneumonia due to 2019 novel coronavirus Restless leg syndrome Shortness of breath Transient ischemic attack (TIA) x1 (~2014) Surgical History H/O eye surgery 2 DRAINAGE TUBES RT/LEFT EYE FOR GLAUCOMA currently in place History of bilateral cataract extraction History of colonoscopy History of esophagogastroduodenoscopy (EGD) History of hip surgery LEFT HIP SURGERY/REVISIONS (TOTAL OF 9 SURGERIES) History of laminectomy L3-L5 laminectomy: 05/12/15: Grade view 1, MAC#3, ETT 8.0 (atraumatic DL x 1) at [facility] History of tonsillectomy and adenoidectomy History of tooth extraction Status post reverse total arthroplasty of left shoulder Family History Other No family history of adverse response to anesthesia No pertinent family history Social History Smoking Status: Former smoker Second Hand Exposure: No; Hx Alcohol Use: Yes Alcohol type: beer and hard liquor Hx Substance Use: No Preferred Language: Malaysian Communication Ability: Effective Helper Metal Hanging Required: No Beliefs That Will Affect Care: None marital status: Current Living Situation: Spouse Feels Safe at Home: Yes Assistive Devices: Crutches, Denture - Upper, Denture - Lower, Oxygen - Continuous and Walker Review of Systems Review of Systems: As per HPI. Physical Exam Physical Exam: Normal habitus elderly white male in no distress. Current weight is 17 pounds less than admission weight (?) And 7 pounds less than his discharge weight at the time of prior hospitalization last month. BP normotensive. Pulse in the 70s and regular without ectopy. Skin: no ecchymoses or generalized lesions. HEENT: unremarkable. Neck: Jugular venous pulse at or just below the clavicle at 90 degrees, no carotid bruits. Lungs: Mild dullness at the bases, somewhat tubular breath sounds but generally clear. No crackles or wheezes. No accessory muscle use. Cardiac: regular rhythm with intact aortic and pulmonic closure sounds, no obvious murmur or gallop. Abdomen: benign. Extremities: no edema, pulses intact. Neurologic: normal affect, nonfocal. Results & Data ([facility]) Vital Signs (Past 12 Hours) Vital Signs Temp Pulse Pulse Resp BP Pulse Ox 10/07/20 11:00 97.5 F L 71 18 115/61 94 10/07/20 07:27 67 10/07/20 07:00 97.7 F 77 18 127/76 98 10/07/20 06:00 94 Laboratory Results Initial troponin was negative. Hemoglobin 10.8 today. Creatinine 0.86 today. Diagnostic Findings Echocardiogram as noted in HPI. ECG as noted in HPI. PG Care Time/CCT Total # of Minutes Spent Total Time Spent with Patient: Total time spent is greater than 50% in coordination of care (as documented) at patient's floor/unit and/or counseling patient: Coding Level of Care Code 62732 Inpt Consult Level 4 Diagnoses Mobitz type 1 second degree AV block I44.1 Pleural effusion J90 Shortness of breath R06.02 Paroxysmal atrial fibrillation I48.0 History of COVID-19 Z86.16
[2020-10-07] MEDS: LATANOPROST 0.005% OP SOLN 2.5 ML BTL OP SCH (19:39)
[2020-10-07] MEDS: ASPIRIN 81 MG ECTAB PO SCH (19:41)
[2020-10-07] MEDS: TAMSULOSIN HCL 0.4 MG CAP PO SCH (19:41)
[2020-10-07] MEDS: SUCRALFATE 1 GM TAB PO SCH (19:41)
[2020-10-07] MEDS: traZODone HCL 50 MG TAB PO SCH (21:15)
[2020-10-08] MEDS: CEFEPIME 2,000 MG in SYRINGE 0 ML IV SCH ×3 (01:06→17:10)
[2020-10-08] MEDS: HYDROcodone/ACETAMINOPHEN 10/325 TAB PO PRN ×5 (03:04→20:57)
[2020-10-08] MEDS: DOXYCYCLINE HYCLATE 100 MG in DEXTROSE 5% 100 ML IV SCH (04:49)
[2020-10-08 06:23] LABS: Hematocrit (blood only) 35.5 % (42-52); Hemoglobin 11.2 g/dL (14.0-18.0); Mean Corpuscular Hemoglobin 26.5 pg (25-34); Mean Corpuscular Hgb Conc 31.5 g/dL (32-36); Mean Corpuscular Volume 84.1 fL (80-100); Mean Platelet Volume 8.6 fL (7.4-10.4); Platelet Count 459 K/uL (130-400); RDW Coefficient of Variation 15.4 % (11.5-14.5); RDW Standard Deviation 47.8 fL (36.4-46.3); Red Blood Count 4.22 M/uL (4.7-6.1); White Blood Count 6.65 K/uL (4.8-10.8)
[2020-10-08 07:02] LABS: BUN Creatinine Ratio 35.3 (10-20); Calcium 8.8 mg/dl (8.5-10.1); Creatinine Clr Calc Pharmacy 94.8 ml/min; Est GFR (African American) 107.7; Est GFR (Non-African American) 92.9; Magnesium 2.1 mg/dl (1.8-2.4); Phosphorus 3.9 mg/dl (2.5-4.9); Potassium 3.9 mmol/L (3.5-5.1)
[2020-10-08] MEDS: GABAPENTIN 600 MG TAB PO SCH ×3 (07:38→20:57)
[2020-10-08] MEDS: PANTOprazole 40 MG TAB PO SCH (07:39)
[2020-10-08] MEDS: busPIRone 5 MG TAB PO SCH ×3 (07:39→20:55)
[2020-10-08] MEDS: CITALOPRAM 40 MG TAB PO SCH (07:40)
[2020-10-08] MEDS: OMEGA-3 (PURIFIED FISH OIL) 1 GM CAP PO SCH (07:40)
[2020-10-08] MEDS: buPROPion HCl 100 MG TABLET PO SCH ×2 (07:41→17:11)
[2020-10-08] MEDS: ASCORBIC ACID 500 MG TAB PO SCH (07:41)
[2020-10-08] MEDS: MULTIVITAMIN TAB PO SCH (07:41)
[2020-10-08] MEDS: BRIMONIDINE TARTRATE 0.2% 5ML OPB SCH ×3 (07:42→20:54)
[2020-10-08] MEDS: DORZOLAMIDE HCL 2% OPH SOLN 10 ML BTL OP SCH ×3 (07:42→20:53)
[2020-10-08] MEDS: ENOXAPARIN INJ 40 MG/0.4 ML SYR SQ SCH (07:43)
[2020-10-08] MEDS: FUROSEMIDE 20 MG in SYRINGE 0 ML IV SCH ×2 (07:48→17:12)
--- NOTE | 2020-10-08 09:01 | Hospitalist Progress Note ---
Date of Service October 08, 2020 Assessment & Plan (1) Bilateral pleural effusion: ?CHF vs. hypoalbuminemia in setting of recent COVID-19 vs. traumatic (recurrent falls, initial pleural effusion following a fall in January). Gentle diuresis, daily weights, I&Os, low Na, fluid restricted diet. 2-7 pulm performed right thoracentesis with 700ml serous fluid studies sent including LDH, total protein, cell count, glucose, pH, cytology, AFB cultures, gram stain, bacterial and fungal cultures 3.37 protein is not > 0.5, 132/365 LDH is not > 0.6, fluid LDH is > 2/3 of 241 Does not meet Light's criteria for exudate Chest tube management per pulmonology team echocardiogram with elevated RVSP 50-60mmHg may need right heart cath for pulmonary hypertension eval 2-9 chest tube pulled today 2-10 doing well, no sob, no cough (2) Acute respiratory failure with hypoxia: Aim O2 sats > 92% Procalcitonin negative - low suspicion of bacterial pneumonia. 2-8 doing well on room air stop bactrim 2-10 antibiotics cefepime and doxy were started on 10-05 will finish 5 day course of antibiotics on 10-09 (3) History of COVID-19: > 14 days after initial illness. No need for continued isolation. (4) Paroxysmal atrial fibrillation: Unclear history of this since he is not on anticoagulation (5) Weakness: Multiple falls. 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 (7) DVT prophylaxis: Pending pulm consult regarding pleurx/thoracocentesis decision. Admission and Anticipated Discharge Date Admission Date: October 05, 2020 Subjective Mr Saunders is doing well today. Slept well, ate well, no trouble with bowel or bladder. Had 2 step oxygen eval today. Patient denying shortness of breath, cough, chest pain. Not dizzy or fatigued. Requesting physical therapy at SNF due to feeling overall weak Review of Systems Constitutional: no fever, no chills, no fatigue, no weakness, no anorexia, no weight loss and no weight gain Ear, Nose, Mouth, Throat: no nasal congestion, no sore throat and no dysphagia Respiratory: no cough and no dyspnea Cardiovascular: no chest pain, no dyspnea on exertion, no orthopnea and no palpitations Gastrointestinal: no abdominal pain, no nausea, no vomiting, no hematemesis, no dysphagia, no constipation, no diarrhea/loose stools, no blood in stools and no melena Genitourinary: no dysuria and no hematuria Musculoskeletal: no back pain, no joint pain, no myalgia and no muscle weakness Integumentary: no rash, no lesions, no skin ulcer, no erythema, no dry skin and no pruritus Neurologic: no falls, no localized weakness, no generalized weakness, no numbness, no paresthesia, no tremor(s) and no headache(s) Psychiatric: no depression, no suicidal ideation, no homicidal ideation and no anxiety Endocrine: no cold intolerance and no heat intolerance Hematologic / Lymphatic: no easy bleeding and no easy bruising Physical Exam Constitutional: well developed and well nourished; no acute distress Eyes: PERRL, conjunctivae normal, anicteric sclerae ENMT: Mouth: oral mucous membranes not dry Respiratory: normal respiratory effort (wearing 2L oxygen); no respiratory distress and no labored breathing Auscultation: lungs clear to auscultation bilaterally; no crackles, no rales, no rhonchi and no wheezes Cardiovascular: Rate/Rhythm: regular rate and regular rhythm Heart Sounds: no murmur and no cardiac rub Vessels: normal peripheral pulses and radial pulses present; no JVD Extremities: no edema Gastrointestinal (Abdomen): Inspection/Auscultation: abdomen normal to inspection and normal bowel sounds; abdomen not distended Percussion/Palpation: abdomen soft; abdomen nontender, no guarding, abdomen not rigid and no hepatosplenomegaly Musculoskeletal: Head/Neck/Chest: normocephalic and head atraumatic Spine: no cervical spinal tenderness, no cervical muscular tenderness, no thoracic spinal tenderness and no lumbar spinal tenderness Skin: no rashes, warm and dry Neurologic: CN's II-XI intact bilaterally and moves all extremities Motor/Sensory: no tremor and no sensory deficit Psychiatric: Orientation: alert, oriented to person, oriented to place and oriented to time Apperance: appropriately groomed; not disheveled Affect: euthymic affect; no anxious affect and no tearful affect Results & Data Results & Data ([facility]) Vital Signs (Past 12 Hours) Vital Signs Temp Pulse Pulse Pulse Pulse Pulse Pulse 10/08/20 07:34 36.6 C 96 H 10/08/20 07:30 79 85 78 77 10/08/20 04:21 79 10/08/20 04:00 36.8 C 98 H 10/07/20 23:00 36.6 C 88 Resp Resp Resp Resp Resp BP Pulse Ox 10/08/20 07:34 18 119/74 96 10/08/20 07:30 20 22 20 20 10/08/20 04:21 10/08/20 04:00 18 128/77 94 10/07/20 23:00 18 123/75 95 Pulse Ox Pulse Ox Pulse Ox Pulse Ox 10/08/20 07:34 10/08/20 07:30 93 85 L 93 94 10/08/20 04:21 10/08/20 04:00 10/07/20 23:00 Laboratory Results Abnormal lab results 10/08/20 10/08/20 Range/Units 05:50 05:50 RBC 4.22 L (4.7-6.1) M/uL Hgb 11.2 L (14.0-18.0) g/dL Hct 35.5 L (42-52) % MCHC 31.5 L (32-36) g/dL RDW Std Deviation 47.8 H (36.4-46.3) fL RDW Coeff of Timbo 15.4 H (11.5-14.5) % Plt Count 459 H (130-400) K/uL BUN 27 H (7-18) mg/dl BUN/Creatinine Ratio 35.3 H (10-20) Medications Administered Current Inpatient Medications Acetaminophen (Acetaminophen 325 Mg Tab) 650 mg PO Q4H PRN PRN Reason: Pain or Fever Stop: 11/04/20 15:04 Hydrocodone Bitart/Acetaminophen (Hydrocodone/Acetaminophen 10/325 Tab) 1 tab PO Q4H PRN PRN Reason: Pain Stop: 10/19/20 15:59 Last Admin: 10/08/20 07:37 Dose: 1 tab Documented by: Al Hydrox/Mg Hydrox/Simethicone (Aluminum/Magnesium Susp 30 Ml Udc) 15 ml PO Q4H PRN PRN Reason: Dyspepsia Stop: 11/04/20 15:04 Ascorbic Acid (Ascorbic Acid 500 Mg Tab) 500 mg PO QAM [facility] Stop: 11/05/20 08:59 Last Admin: 10/08/20 07:41 Dose: 500 mg Documented by: Aspirin (Aspirin 81 Mg Ectab) 81 mg PO HS [facility] Stop: 11/04/20 20:59 Last Admin: 10/07/20 19:41 Dose: 81 mg Documented by: Brimonidine Tartrate (Brimonidine Tartrate 0.2% 5ml) 1 drops OPB TID [facility] Stop: 11/04/20 20:59 Last Admin: 10/08/20 07:42 Dose: 1 drops Documented by: Bupropion HCl (Bupropion Hcl 100 Mg Tablet) 200 mg PO BID17 [facility] Stop: 11/04/20 16:59 Last Admin: 10/08/20 07:41 Dose: 200 mg Documented by: Buspirone HCl (Buspirone 5 Mg Tab) 5 mg PO TID [facility] Stop: 11/04/20 20:59 Last Admin: 10/08/20 07:39 Dose: 5 mg Documented by: Chlorzoxazone (Chlorzoxazone 500 Mg Tab) 750 mg PO Q6H PRN PRN Reason: Muscle Spasm Stop: 11/04/20 15:57 Citalopram Hydrobromide (Citalopram 40 Mg Tab) 40 mg PO QAM [facility] Stop: 11/05/20 08:59 Last Admin: 10/08/20 07:40 Dose: 40 mg Documented by: Dorzolamide HCl (Dorzolamide Hcl 2% Oph Soln 10 Ml Btl) 1 drops OP TID [facility] Stop: 11/04/20 20:59 Last Admin: 10/08/20 07:42 Dose: 1 drops Documented by: Enoxaparin Sodium (Enoxaparin Inj 40 Mg/0.4 Ml Syr) 40 mg SQ QAM [facility] Stop: 11/05/20 08:59 Last Admin: 10/08/20 07:43 Dose: 40 mg Documented by: Fish Oil ([place]-3 (Purified Fish Oil) 1 Gm Cap) 1 gm PO QAM [facility] Stop: 11/05/20 08:59 Last Admin: 10/08/20 07:40 Dose: 1 gm Documented by: Gabapentin (Gabapentin 600 Mg Tab) 600 mg PO TID [facility] Stop: 11/04/20 20:59 Last Admin: 10/08/20 07:38 Dose: 600 mg Documented by: Doxycycline Hyclate 100 mg/ (Dextrose) 110 mls @ 50 mls/hr IV Q12H [facility]; Protocol Stop: 10/12/20 16:59 Last Infusion: 10/08/20 06:51 Dose: Infused Documented by: Furosemide 20 mg/ Syringe 2 mls @ 4 mls/min IV BID17 [facility] Stop: 11/04/20 16:59 Last Admin: 10/08/20 07:48 Dose: 4 mls/min Documented by: Cefepime HCl 2,000 mg/ Syringe 20 mls @ 5 mls/min IV Q8H [facility] Stop: 10/12/20 16:59 Last Admin: 10/08/20 07:48 Dose: 5 mls/min Documented by: Latanoprost (Latanoprost 0.005% Op Soln 2.5 Ml Btl) 1 drops OP PM [facility] Stop: 11/04/20 20:59 Last Admin: 10/07/20 19:39 Dose: 1 drops Documented by: Miscellaneous Information (Cefepime Consult Active) 1 ea N/A UD PRN PRN Reason: Consult Stop: 11/04/20 15:58 Multivitamins (Multivitamin Tab) [facility] Stop: 11/05/20 08:59 Last Admin: 10/08/20 07:41 Dose: 1 tab Documented by: Ondansetron HCl (Ondansetron Inj 2 Mg/Ml 2 Ml Vial) 4 mg IV Q6H PRN PRN Reason: Nausea Stop: 11/04/20 15:04 Pantoprazole Sodium (Pantoprazole 40 Mg Tab) 40 mg PO QAM [facility] Stop: 11/05/20 08:59 Last Admin: 10/08/20 07:39 Dose: 40 mg Documented by: Polyethylene Glycol (Polyethylene (Miralax) 17 Gm Pack) 17 gm PO DAILY PRN PRN Reason: Constipation Stop: 11/04/20 15:04 Sucralfate (Sucralfate 1 Gm Tab) 1 gm PO HS [facility] Stop: 11/04/20 20:59 Last Admin: 10/07/20 19:41 Dose: 1 gm Documented by: Tamsulosin HCl (Tamsulosin Hcl 0.4 Mg Cap) 0.4 mg PO QPM [facility] Stop: 11/04/20 20:59 Last Admin: 10/07/20 19:41 Dose: 0.4 mg Documented by: Trazodone HCl (Trazodone Hcl 50 Mg Tab) 150 mg PO HS [facility] Stop: 11/04/20 20:59 Last Admin: 10/07/20 21:15 Dose: 150 mg Documented by: PG Care Time/CCT Total # of Minutes Spent Total Time Spent with Patient: Total time spent is greater than 50% in coordination of care (as documented) at patient's floor/unit and/or counseling patient: Coding Level of Care Code 89953 Subseq Hosp Care Lvl 2 Diagnoses Bilateral pleural effusion J90 Acute respiratory failure with hypoxia J96.01 History of COVID-19 Z86.16 Paroxysmal atrial fibrillation I48.0 Weakness R53.1 History of hip surgery Z98.890 DVT prophylaxis Z29.9
--- NOTE | 2020-10-08 10:59 | Cardiology Progress Note ---
Date of Service October 08, 2020 Assessment & Plan (1) Mobitz type 1 second degree AV block: (2) Pleural effusion: (3) Shortness of breath: (4) Paroxysmal atrial fibrillation: (5) History of COVID-19: Metoprolol discontinued yesterday, no further evidence of pauses/heart block. Upon discharge, would recommend metoprolol to be used only on a PRN basis for any recurrent palpitations which might indicate recurrent paroxysmal atrial fibrillation. He notes that he will be finished with hydrocodone within the next month, since this may be contributing to his bradycardic tendencies, he would be more likely to tolerate routine metoprolol (if needed) once he is off the hydrocodone. No indication for pacemaker in the absence of longer pauses or significant associated symptoms. However, if he does develop recurrent atrial fibrillation and require a negative chronotropic medication, he would fit the definition of tachybradycardia syndrome and might then require both a pacemaker and reintroduction of beta-blockers. Would recommend cardiology follow-up in 1 to 2 months to reassess need for beta- pantera. Admission and Anticipated Discharge Date Admission Date: October 05, 2020 Subjective Uneventful night. Patient was comfortable, watching television. No chest pain or dyspnea at rest. Rhythm overnight was sinus/mild sinus tachycardia, no further heart block or pauses over the past 24 hours. Physical Exam Physical Exam: Appears comfortable. BP normotensive. Pulse in the 90s and regular without ectopy. Skin: no ecchymoses or generalized lesions. HEENT: unremarkable. Neck: Jugular venous pulse at or just below the clavicle at 90 degrees, no carotid bruits. Lungs: Mild dullness at the bases, somewhat tubular breath sounds but generally clear. No crackles or wheezes. No accessory muscle use. Cardiac: regular rhythm with intact aortic and pulmonic closure sounds, no obvious murmur or gallop. Abdomen: benign. Extremities: no edema, pulses intact. Neurologic: normal affect, nonfocal. PG Care Time/CCT Total # of Minutes Spent Total Time Spent with Patient: Total time spent is greater than 50% in coordination of care (as documented) at patient's floor/unit and/or counseling patient: Coding Level of Care Code 06263 Subseq Hosp Care Lvl 2 Diagnoses Mobitz type 1 second degree AV block I44.1 Pleural effusion J90 Shortness of breath R06.02 Paroxysmal atrial fibrillation I48.0 History of COVID-19 Z86.16
[2020-10-08] MEDS: LATANOPROST 0.005% OP SOLN 2.5 ML BTL OP SCH (20:54)
[2020-10-08] MEDS: ASPIRIN 81 MG ECTAB PO SCH (20:55)
[2020-10-08] MEDS: DOXYCYCLINE HYCLATE 100 MG CAP PO SCH (20:55)
[2020-10-08] MEDS: traZODone HCL 50 MG TAB PO SCH (20:56)
[2020-10-08] MEDS: SUCRALFATE 1 GM TAB PO SCH (20:56)
[2020-10-08] MEDS: TAMSULOSIN HCL 0.4 MG CAP PO SCH (20:57)
[2020-10-09] MEDS: HYDROcodone/ACETAMINOPHEN 10/325 TAB PO PRN ×3 (01:35→13:36)
[2020-10-09] MEDS: CEFEPIME 2,000 MG in SYRINGE 0 ML IV SCH ×2 (01:36→08:23)
[2020-10-09 06:29] LABS: Hematocrit (blood only) 36.7 % (42-52); Hemoglobin 11.4 g/dL (14.0-18.0); Mean Corpuscular Hemoglobin 26.6 pg (25-34); Mean Corpuscular Hgb Conc 31.1 g/dL (32-36); Mean Corpuscular Volume 85.5 fL (80-100); Mean Platelet Volume 8.5 fL (7.4-10.4); Platelet Count 456 K/uL (130-400); RDW Coefficient of Variation 15.5 % (11.5-14.5); Red Blood Count 4.29 M/uL (4.7-6.1); White Blood Count 7.35 K/uL (4.8-10.8)
[2020-10-09 07:07] LABS: BUN Creatinine Ratio 42.4 (10-20); Calcium 9.1 mg/dl (8.5-10.1); Creatinine Clr Calc Pharmacy 102.4 ml/min; Est GFR (African American) 112.8; Est GFR (Non-African American) 97.4; Magnesium 2.2 mg/dl (1.8-2.4); Phosphorus 3.5 mg/dl (2.5-4.9); Potassium 3.9 mmol/L (3.5-5.1)
--- NOTE | 2020-10-09 08:00 | Discharge Summary ---
Date of Service October 09, 2020 Admission HPI Per Admitting Provider Brennan Saunders is a 70-year-old male who presents to the ER with worsening shortness of breath after recent COVID-19 pneumonia. He was hospitalized here from September 03-2020 with COVID-19 pneumonia treated with dexamethasone. Procalcitonin was elevated at that time and he also received a course of ceftriaxone and azithromycin to cover for bacterial pneumonia. His previous hospitalization occurred after receiving an experimental monoclonal antibody treatment at [facility] and subsequent quick deterioration after this requiring BiPAP on admission. He subsequently improved and was able to maintain sats on room air but still required 2 L O2 on exertion. He reports after discharge initially doing very well and slowly improving however 2 days ago he woke up much more short of breath with worsening cough. He does report having to sleep in a recliner since his COVID-19 diagnosis. He denies any chest pain, palpitation, presyncope or syncope. No ongoing fever or chills. He has a notable history of atrial fibrillation which he was diagnosed in 2014. He reports being sent in by his PCP and being diagnosed with A. fib in the emergency room. He denies ever being on anticoagulation following this. He reports being told that aspirin was enough. Will recent EKG is in normal sinus rhythm. He denies any recent palpitations, increased leg swelling, claudication, presyncope or syncope. In the ER CTA was negative for PE but showed moderate to large right and moderate left pleural effusions increased from prior in addition to consolidation concerning for multifocal pneumonia. He was requiring 4L O2 in the ER. Therefore referred to medicine for admission and ongoing management of multifocal PNA, recent COVID-19 and hypoxia. Principal Diagnosis hypoxic respiratory failure pleural effusion Discharge Exam Constitutional well developed and well nourished; no acute distress Eyes PERRL, conjunctivae normal, anicteric sclerae ENMT Mouth: oral mucous membranes not dry Respiratory normal respiratory effort (wearing 2L oxygen); no respiratory distress and no labored breathing Auscultation: lungs clear to auscultation bilaterally; no crackles, no rales, no rhonchi and no wheezes Cardiovascular Rate/Rhythm: regular rate and regular rhythm Heart Sounds: no murmur and no cardiac rub Vessels: normal peripheral pulses and radial pulses present; no JVD Extremities: no edema Gastrointestinal (Abdomen) Inspection/Auscultation: abdomen normal to inspection and normal bowel sounds; abdomen not distended Percussion/Palpation: abdomen soft; abdomen nontender, no guarding, abdomen not rigid and no hepatosplenomegaly Musculoskeletal Head/Neck/Chest: normocephalic and head atraumatic Spine: no cervical spinal tenderness, no cervical muscular tenderness, no thoracic spinal tenderness and no lumbar spinal tenderness Skin no rashes, warm and dry Neurologic CN's II-XI intact bilaterally and moves all extremities Motor/Sensory: no tremor and no sensory deficit Psychiatric Orientation: alert, oriented to person, oriented to place and oriented to time Apperance: appropriately groomed; not disheveled Affect: euthymic affect; no anxious affect and no tearful affect Discharge Data Allergies Allergy/AdvReac Type Severity Reaction Status Date / Time No Known Allergies Allergy Unknown Verified 10/05/20 15:43 Consultations 10/05/20 11:28 ED Decision to Admit Stat 10/05/20 12:11 Consult Pulmonology Routine 10/07/20 10:43 Consult Cardiology Routine Ordered Studies 10/05/20 09:06 CT angio chest PE protocol Stat 10/05/20 13:15 US point of care ultrasound Stat Hospital Course (1) Bilateral pleural effusion: ?CHF vs. hypoalbuminemia in setting of recent COVID-19 vs. traumatic (recurrent falls, initial pleural effusion following a fall in January). Gentle diuresis, daily weights, I&Os, low Na, fluid restricted diet. 2-7 pulm performed right thoracentesis with 700ml serous fluid studies sent including LDH, total protein, cell count, glucose, pH, cytology, AFB cultures, gram stain, bacterial and fungal cultures 3.3/7 protein is not > 0.5, 132/365 LDH is not > 0.6, fluid LDH is > 2/3 of 241 Does not meet Light's criteria for exudate Chest tube management per pulmonology team echocardiogram with elevated RVSP 50-60mmHg may need right heart cath for pulmonary hypertension eval 2-9 chest tube pulled today 2-10 doing well, no sob, no cough will keep on lasix 20mg PO BID on discharge BMP in one week (2) Acute respiratory failure with hypoxia: Aim O2 sats > 92% Procalcitonin negative - low suspicion of bacterial pneumonia. 2-8 doing well on room air stop bactrim 2-10 antibiotics cefepime and doxy were started on 10-05 will finish 5 day course of antibiotics on 10-09 (3) History of COVID-19: > 14 days after initial illness. No need for continued isolation. (4) Paroxysmal atrial fibrillation: Unclear history of this since he is not on anticoagulation (5) Weakness: Multiple falls. 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 10-09 resume bactrim on discharge (7) DVT prophylaxis: Pending pulm consult regarding pleurx/thoracocentesis decision. Total Time Total Time Spent Total Time Spent (In Minutes): 40 Total Time Includes: Examination of the Patient, Discharge Planning, Medication Reconciliation and Communication With Other Providers Discharge Plan Discharge Items Patient Disposition: Transfer Inpatient Rehab Fac Reason For Visit: ACUTE HYPOXIC RESP FAILURE, BILATERAL PLEURAL EFF Discharge Diagnosis: pleural effusion pneumonia Activity: Resume your previous activity Non-emergency contact: Primary Care Provider Call non-emergency contact if: you have any medication questions Follow-up/Referrals: PCP,NO [Primary Care Provider] - (see primary care provider within one week for BMP and hospital follow up) Diet: Regular Addtl Attending Provider Instructions: You were treated for pleural effusion The fluid on the right side of your chest was drained through a tube You will need to stay on lasix 20mg twice daily in order to prevent the fluid from reaccumulating See your primary care doctor within one week for a BMP and to manage your lasix dose Stop taking metoprolol which was causing you to have heart block Pending Studies at Discharge: No Stand-Alone Forms: My [facility] Skilled Items Patient informed of condition?: Yes DNR: No Discharge Level of Care: Acute rehab Communicable Disease: No Discharge Prognosis: Stable Lines: None Urinary Catheter: No Medications and DC Order Prescriptions: New furosemide [Lasix] 20 mg tablet 20 mg PO BID 30 Days Qty: 60 RF: 0 Continued (DME) HEEL LIFTS Misc See Rx Instructions .ROUTE .MEDSUPPLY Qty: 1 RF: 0 buspirone 5 mg Tablet 5 mg PO TID RF: 0 citalopram 40 mg Tablet 40 mg PO QAM RF: 0 alendronate 70 mg Tablet 70 mg PO WK RF: 0 sulfamethoxazole-trimethoprim [Bactrim DS] 800-160 mg Tablet 1 tab PO Q12H RF: 0 bupropion HCl 100 mg Tablet 200 mg PO BID RF: 0 ascorbic acid (vitamin C) [Vitamin C] 500 mg Tablet 500 mg PO QAM RF: 0 tamsulosin [Flomax] 0.4 mg Capsule 0.4 mg PO QPM RF: 0 saw palmetto 500 mg Capsule 1,000 mg PO QAM RF: 0 pantoprazole 40 mg tablet,delayed release (DR/EC) 40 mg PO QAM RF: 0 aspirin [Aspirin Low Dose] 81 mg Tablet,Delayed Release (Dr/Ec) 81 mg PO HS RF: 0 latanoprost 0.005 % Drops 1 drp OPHTHALMIC (EYE) PM RF: 0 dorzolamide 2 % Drops 1 drp OPHTHALMIC (EYE) TID RF: 0 sucralfate [Carafate] 1 gram tablet 1 gm PO HS RF: 0 brimonidine 0.2 % Drops 1 drp OPHTHALMIC (EYE) TID RF: 0 chlorzoxazone 500 mg tablet 750 mg PO Q6H PRN (Reason: Muscle Spasm) RF: 0 (DME) Oxygen Home Liters Per Minute 1 ea .Route .prn Qty: 1 RF: 0 [id number] 105mg 2 tab PO UD RF: 0 multivitamin Tablet 1 tab PO QAM RF: 0 trazodone 150 mg Tablet 150 mg PO HS RF: 0 gabapentin 300 mg Capsule 600 mg PO TID RF: 0 omega 4-tse-nbm-fish oil [Fish Oil] 1,200 (144-216) mg Capsule 1 cap PO QAM RF: 0 Calcium [id number] 15-Vitamin D3 15 1 tab PO QAM RF: 0 hydrocodone-acetaminophen 10-325 mg tablet 1 tab PO QAM RF: 0 Discontinued metoprolol tartrate 50 mg Tablet 25 mg PO BID RF: 0 Discharge Orders: Discharge Order (Routine); Ordered 10/09/20 Ordered By: Cassandra Valero Admission Data Admit Date/Time: 10/05/20 13:05 Attending Provider: Cassandra Valero Admit Provider: Doron Granados Primary Care Provider: PCP,NO Other Providers: Doron Granados ; Mark Anthony Calloway ; Juan Chamorro ; [facility] Coding Level of Care Code D/C Day Management >30 mins Diagnoses Bilateral pleural effusion J90 Acute respiratory failure with hypoxia J96.01 History of COVID-19 Z86.16 Paroxysmal atrial fibrillation I48.0 Weakness R53.1 History of hip surgery Z98.890 DVT prophylaxis Z29.9
[2020-10-09] MEDS: buPROPion HCl 100 MG TABLET PO SCH (08:23)
[2020-10-09] MEDS: OMEGA-3 (PURIFIED FISH OIL) 1 GM CAP PO SCH (08:23)
[2020-10-09] MEDS: ASCORBIC ACID 500 MG TAB PO SCH (08:23)
[2020-10-09] MEDS: DOXYCYCLINE HYCLATE 100 MG CAP PO SCH (08:23)
[2020-10-09] MEDS: busPIRone 5 MG TAB PO SCH ×2 (08:23→13:35)
[2020-10-09] MEDS: PANTOprazole 40 MG TAB PO SCH (08:23)
[2020-10-09] MEDS: CITALOPRAM 40 MG TAB PO SCH (08:23)
[2020-10-09] MEDS: GABAPENTIN 600 MG TAB PO SCH ×2 (08:23→13:35)
[2020-10-09] MEDS: MULTIVITAMIN TAB PO SCH (08:23)
[2020-10-09] MEDS: BRIMONIDINE TARTRATE 0.2% 5ML OPB SCH ×2 (08:24→13:35)
[2020-10-09] MEDS: ENOXAPARIN INJ 40 MG/0.4 ML SYR SQ SCH (08:24)
[2020-10-09] MEDS: DORZOLAMIDE HCL 2% OPH SOLN 10 ML BTL OP SCH ×2 (08:24→13:36)
[2020-10-09] MEDS: FUROSEMIDE 20 MG in SYRINGE 0 ML IV SCH (09:41)
--- NOTE | 2020-10-09 12:41 | Cardiology Progress Note ---
Date of Service October 09, 2020 Assessment & Plan (1) Mobitz type 1 second degree AV block: (2) Paroxysmal atrial fibrillation: (3) History of COVID-19: (4) Bilateral pleural effusion: No significant pauses since his metoprolol was discontinued. Remain off routine metoprolol, should have this available for PRN use for any recurrent palpitations that might indicate paroxysmal atrial fibrillation. Cardiology follow-up in 1 to 2 months to reassess need for beta-pantera. Admission and Anticipated Discharge Date Admission Date: October 05, 2020 Subjective Uneventful night. Patient comfortable and being discharged today. Monitor showed sinus rhythm at 90-100 bpm with no pauses or significant heart block. Physical Exam Physical Exam: Appears comfortable. BP normotensive. Pulse in the 90s and regular without ectopy. Skin: no ecchymoses or generalized lesions. HEENT: unremarkable. Neck: Jugular venous pulse at or just below the clavicle at 90 degrees, no carotid bruits. Lungs: Mild dullness at the bases, somewhat tubular breath sounds but generally clear. No crackles or wheezes. No accessory muscle use. Cardiac: regular rhythm with intact aortic and pulmonic closure sounds, no obvious murmur or gallop. Abdomen: benign. Extremities: no edema, pulses intact. Neurologic: normal affect, nonfocal. PG Care Time/CCT Total # of Minutes Spent Total Time Spent with Patient: Total time spent is greater than 50% in coordination of care (as documented) at patient's floor/unit and/or counseling patient: Coding Level of Care Code 32633 Subseq Hosp Care Lvl 2 Diagnoses Mobitz type 1 second degree AV block I44.1 Paroxysmal atrial fibrillation I48.0 History of COVID-19 Z86.16 Bilateral pleural effusion J90
--- NOTE | 2020-10-22 14:11 | Coding Query ---
CODING QUERY To promote full compliance with coding requirements relating to patient care, provider participation is requested in all cases of body piercer uncertainty. Please assist us with the question(s) below: Coding Question(s): 1. Possible Multifocal Pneumonia is documented in the record on ER and H&P and Pneumonia is documented on the Discharge Summary at the bottom under Discharge Plan, Discharge Diagnosis and Progress Notes document low suspicion for bacterial pneumonia and there is documentation of recent COVID-19 Pneumonia. Please Specify, below, in your clinical opinion, regarding Pneumonia. ( ) COVID-19 Pneumonia was treated during this admission ( ) Bacterial Pneumonia was treated during this admission ( x) Pneumonia, Unspecified was treated during this admission ( ) Other Pneumonia was treated. Please Specify ( ) Pneumonia is Ruled-Out 2. Pleural Effusion is documented throughout the record with documentation on Discharge Summary of, "Bilateral pleural effusion: ?CHF vs. hypoalbuminemia in setting of recent COVID-19 vs. traumatic (recurrent falls, initial pleural effusion following a fall in January). Gentle diuresis, daily weights, I&Os, low Na, fluid restricted diet." and also, "will keep on lasix 20mg PO BID on discharge BMP in one week", with the Pulmonary Consultation on 10/05/20 documenting "Acute respiratory failure with hypoxia: I suspect the patient's hypoxia and shortness of breath are multifactorial likely related to residual COVID-19 inflammation and possibly fibrosis related to ARDS/recent Covid infection. If he does not have significant improvement of symptoms with a trial of gentle IV diuresis and drainage of the right pleural effusion, I would recommend trialing him on 0.5 mg/kg of prednisone to see if there is a steroid responsive component to this lung disease. Recommend continuing to wean his oxygen to maintain saturations of 92 to 94%. Continue to increase activity as tolerated. I would recommend PT and OT consults as he does have chronic hip and shoulder issues. His albumin is quite low and I suspect that his nutrition has been poor. Nutrition consultation may be beneficial. Some of the effusions that we are seeing on a CT chest may also be related to low oncotic pressure. Formal echocardiogram is pending to evaluate his heart function. On my [id number] ultrasound, his LV function appeared to be preserved" and the Pulmonary Progress on 10/07/20 documents, "Patient has evidence of pulmonary hypertension on echocardiogram with increased estimated pressures however the right ventricle systolic function and morphology were normal. I suspect this is WHO class II and III. Secondary to underlying cardiopulmonary disease. No indication for right heart catheterization at this point time. Diuretics are recommended. Could consider outpatient PFTs when the patient is stable". It is not clear what is the most likely etiology of the Pleural Effusion. Please specify below, in your clinical opinion, the most likely etiology of the Pleural Effusion. ( x ) CHF. Please specify further the type of CHF: ( ) Acute CHF ( ) Diastolic ( ) Systolic ( ) Combined Diastolic and Systolic ( x ) Acute on Chronic CHF ( x ) Diastolic ( ) Systolic ( ) Combined Diastolic and Systolic ( ) Chronic CHF ( ) Diastolic ( ) Systolic ( ) Combined Diastolic and Systolic ( ) Other CHF: Please Specify ( ) Unspecified CHF ( ) Pulmonary Hypertension ( ) Hypoalbuminemia ( ) Trauma ( ) Residual Chronic Inflammation from recent COVID-19 ( ) Pulmonary Fibrosis from recent COVID-19 ( ) Other: Please Specify ( ) Unknown likely etiology Physician's Response(s): Thank you Angelica Francois Principal Diagnosis: "that condition established after study, to be chiefly responsible for occasioning the admission of the patient to the hospital for care." Co-Existing Principal Diagnosis: "when two or more diagnoses equally meet the criteria for principal diagnosis as determined by the circumstances of admission, diagnostic work up, and/or therapy provided, and the Alphabetic Index, Tabular List, or another coding guideline does not provide sequencing direction, any one of the diagnoses may be sequenced first." "When the physician has documented what appears to be a current diagnosis in the body of the record, but has not included the diagnosis in the final diagnostic statement, the physician should be asked whether the diagnosis should be added." (Source Coding Clinic 2 QTR90. p3-4) JOSEPH
== END 2020-10-09 16:09 ==
LOC: ED 08:40 → SUATTDRO 13:05 → 2N 13:05

== ENCOUNTER 2021-01-28 19:37 | Inpatient (IN) ==
[2021-01-28] MEDS ORDERED: dexAMETHasone**PF** 10 MG/ML VIAL IV ONE (20:40)
[2021-01-28] MEDS ORDERED: ALBUT/IPRATROP 3MG/0.5MG NEB 3 ML VIAL NEB STA (20:40)
[2021-01-28] MEDS ORDERED: guaiFENesin 600 MG TABCR PO STA (20:40)
[2021-01-28 20:58] LABS: Basophils # (auto) 0.04 K/uL (0-0.2); Basophils % (auto) 0.5 %; Eosinophils % (auto) 3.8 %; Hematocrit (blood only) 38.6 % (42-52); Hemoglobin 12.4 g/dL (14.0-18.0); Immature Granulocytes # (auto) 0.02 K/uL (0.00-0.02); Immature Granulocytes % (auto) 0.3 %; Lymphocytes # (auto) 1.99 K/uL (1.2-3.4); Lymphocytes % (auto) 24.9 %; Mean Corpuscular Hemoglobin 27.6 pg (25-34); Mean Corpuscular Hgb Conc 32.1 g/dL (32-36); Mean Corpuscular Volume 85.8 fL (80-100); Mean Platelet Volume 9.1 fL (7.4-10.4); Monocytes % (auto) 11.3 %; Neutrophils # (auto) 4.74 K/uL (1.4-6.5); Neutrophils % (auto) 59.2 %; Platelet Count 354 K/uL (130-400); RDW Coefficient of Variation 16.8 % (11.5-14.5); RDW Standard Deviation 53.1 fL (36.4-46.3); White Blood Count 7.99 K/uL (4.8-10.8)
[2021-01-28 21:10] LABS: Partial Thromboplastin Ratio 1.2; Partial Thromboplastin Time 30.8 Seconds (21.0-31.0); Prothrombin Time 10.3 Seconds (9.0-12.0)
[2021-01-28 21:19] LABS: Base Excess VBG 2.3 mEq/L; Oxygen Saturation VBG 70.1 %; pH VBG 7.33 (7.36-7.41)
[2021-01-28 21:39] LABS: Alanine Aminotransferase 33 U/L (12-78); Albumin Globulin Ratio 0.8 (0.9-2); Albumin Level 3.1 gm/dl (3.4-5.0); Alkaline Phosphatase 106 U/L (45-117); Aspartate Aminotransferase 30 U/L (15-37); BUN Creatinine Ratio 23.1 (10-20); Bilirubin,Total 0.1 mg/dl (0.2-1); Blood Urea Nitrogen 22 mg/dl (7-18); Carbon Dioxide 27 mmol/L (21-32); Chloride 106 mmol/L (98-107); Creatinine Clr Calc Pharmacy 77.8 ml/min; Est GFR (African American) 91.3 ml/min; Est GFR (Non-African American) 78.8 ml/min; Globulin 4.1 gm/dl (2.5-4.0); Glucose 79 mg/dl (70-99); Lipase 104 U/L (73-393); Magnesium 2.2 mg/dl (1.8-2.4); NT Pro B Type Natriuretic Pept 234 pg/ml (0-900); Phosphorus 4.1 mg/dl (2.5-4.9); Total Protein 7.2 gm/dl (6.4-8.2); Troponin I < 0.015 ng/ml (0-0.045)
[2021-01-28 21:51] LABS: Potassium 4.1 mmol/L (3.5-5.1); Sodium 139 mmol/L (136-145)
[2021-01-28 21:52] LABS: Bilirubin Direct < 0.1 mg/dl (0-0.2)
[2021-01-28] MEDS ORDERED: FUROSEMIDE 40 MG/4 ML VIAL IV STA (22:51)
--- NOTE | 2021-01-28 23:44 | History & Physical Report ---
Date of Service January 28, 2021 Assessment & Plan (1) Shortness of breath: Patient is a 70 year old male with PMHx Bilateral Pleural effusions, Chronic Hypoxemic respiratory failure, COVID-19 illness, Pulmonary hypertension, Atrial fibrillation, HLD, GERD, who presents with 2-3 day history of worsening shortness of breath, orthopnea, and dyspnea on exertion. Acute on Chronic Hypoxemic Respiratory Failure, likely secondary to B/L Pleural Effusions -Suspect that patient's SOB is likely multifactorial, but most related to b/l pleural effusions at this time -Patient had recent thoracentesis 01/16/21 of his L pleural effusion which based on Light's Criteria appears exudative at that time without microbial growth noted. -Repeat CXR in AM -Received Lasix 40 IV, Duoneb, and Decadron 10mg in ED -Continue Lasix -Continue Breo Ellipta -Continue Albuterol PRN -Pulmonology consulted for possible thoracentesis of R lung or repeat of L. Paroxysmal AFib -Continue Metoprolol -Monitor closely due to hx Mobitz 1 second-degree AV block in the past -Not currently on anticoagulation, working with cardiology at this time to determine need via residential monitoring Depression -Continue Wellbutrin -Continue Trazodone Hx MRSA Infection L Hip -Continue suppressive Bactrim therapy GERD -Continue Protonix BPH -Continue Flomax Dispo: Med/Surg Telemetry for monitoring and possible thoracentesis FEN: HH diet DVT: SCDs Code: Full (2) Bilateral pleural effusion: History of Present Illness Chief Complaint: SOB Primary Care Provider: Rayo Jordan DO Patient is a 70 year old male with PMHx Bilateral Pleural effusions, Chronic Hypoxemic respiratory failure, COVID-19 illness, Pulmonary hypertension, Atrial fibrillation, HLD, GERD, who presents with 2-3 day history of worsening shortness of breath, orthopnea, and dyspnea on exertion. Patient notes that he was recently seen by his salvage determiner Dr. Calloway and had over 2L of fluid removed from his L lung and that since then he over all had been feeling better in regards to his shortness of breath. He states that the past few days he has noticed worsening of his breathing again in addition to a dry cough and chest pressure when having his SOB. He notes that he typically uses 2L NC of O2 daily, but had increased it to 3.5L, most recently discontinuing it at home because he felt that he was doing better prior to feeling worse again the past 2 days. Per discussion with the ED provider, they note that the patient's had called in to notify that the patient has not been fully compliant with medications and has not been taking all of them. The patient himself notes he has been compliant with medications and is unsure of the cause of his sudden worsening. He denies any fever, chills, chest pain, abdominal pain, nausea, vomiting, diarrhea, headache. Med Hx: Bilateral Pleural effusions, Chronic Hypoxemic respiratory failure, COVID-19 illness, Pulmonary hypertension, Atrial fibrillation, HLD, GERD Surg Hx: B/L Cataract, L hip surgery x9, L3-L5 Laminectomy Soc Hx: 60 pack year, quit around 1999. Quit alcohol use 2009. Marijuana use. Allergies Allergy/AdvReac Type Severity Reaction Status Date / Time No Known Allergies Allergy Unknown Verified 01/28/21 21:22 Home Medications Medication Instructions Recorded Confirmed Type alendronate 70 mg PO WK 01/10/19 01/28/21 History ascorbic acid (vitamin C) [Vitamin 500 mg PO QAM 01/10/19 01/28/21 History C] bupropion HCl 200 mg PO BID 01/10/19 01/28/21 History saw palmetto 1,000 mg PO QAM 01/10/19 01/28/21 History sulfamethoxazole-trimethoprim 1 tab PO Q12H 01/10/19 01/28/21 History [Bactrim DS] tamsulosin [Flomax] 0.4 mg PO QPM 01/10/19 01/28/21 History chlorzoxazone 500 mg tablet 750 mg PO Q6H PRN 08/08/19 01/28/21 History HEEL LIFTS #1 ea 04/24/20 01/15/21 Rx pantoprazole 40 mg PO QAM 08/01/20 01/28/21 History multivitamin 1 tab PO QAM 10/05/20 01/28/21 History omega 2-feh-tuq-fish oil [Fish Oil] 1 cap PO QAM 10/05/20 01/28/21 History trazodone 150 mg PO HS 10/05/20 01/28/21 History acetaminophen 325 mg capsule 650 mg PO DAILY PRN cap 10/16/20 01/28/21 History aspirin 81 mg tablet,delayed 81 mg PO DAILY 10/16/20 01/28/21 History release cholecalciferol (vitamin D3) 50 50 mcg PO DAILY 10/16/20 01/28/21 History mcg (2,000 unit) capsule lidocaine 5 % topical patch 1 patch TOPICAL DAILY PRN 10/16/20 01/28/21 History eopgfrt-facybwehn-fubz 333 mg-133 1 tab PO DAILY 11/06/20 01/28/21 History mg-5 mg tablet celecoxib 100 mg capsule 100 mg PO BID #60 cap 12/08/20 01/28/21 Rx gabapentin 300 mg capsule 600 mg PO TID #120 cap 12/15/20 01/28/21 Rx Oxygen Home #1 ea 12/24/20 01/15/21 Rx albuterol sulfate 90 mcg/actuation 2 puff INHALATION Q6H PRN #8.5 g 12/24/20 01/28/21 Rx aerosol inhaler fluticasone furoate 100 1 inh INHALATION DAILY #28 ea 12/30/20 01/28/21 Rx mcg-vilanterol 25 mcg/dose inhalation powder furosemide 40 mg tablet 40 mg PO DAILY #30 tab 01/15/21 01/28/21 Rx glucosamine-chondroitin 250 mg-200 2 tab PO TID 01/15/21 01/28/21 History mg tablet ferrous sulfate 65 mg PO DAILY 01/16/21 01/28/21 History metoprolol tartrate 25 mg PO BID 01/16/21 01/28/21 History terbinafine HCl 250 mg PO DAILY 01/16/21 01/28/21 History Past Med/Surg History Medical History Anxiety Ascites Bilateral pleural effusion Bilateral pleural effusion Chronic back pain Depression Exposure to COVID-19 virus Former smoker GERD (gastroesophageal reflux disease) Glaucoma Hearing deficit hearing aid (left) Hyperlipidemia Leg length discrepancy RLE > LLE s/p multiple left hip revisions (per patient, missing hip joint) due to complications from hip surgery/revisions/MRSA infection- on chronic preventative Bactrim-- uses shoe with elevated heel/crutches Osteoarthritis Peptic ulcer disease 12/2018 Pleural effusion Pneumonia Pneumonia due to 2019 novel coronavirus Restless leg syndrome Shortness of breath Shortness of breath Transient ischemic attack (TIA) x1 (~2014) Surgical History H/O eye surgery 2 DRAINAGE TUBES RT/LEFT EYE FOR GLAUCOMA currently in place History of bilateral cataract extraction History of colonoscopy History of esophagogastroduodenoscopy (EGD) History of hip surgery LEFT HIP SURGERY/REVISIONS (TOTAL OF 9 SURGERIES) History of laminectomy L3-L5 laminectomy: 05/12/15: Grade view 1, MAC#3, ETT 8.0 (atraumatic DL x 1) at [facility] History of tonsillectomy and adenoidectomy History of tooth extraction Status post reverse total arthroplasty of left shoulder Family History Father Cerebral aneurysm Denies family history of Ovarian cancer Prostate cancer Myocardial infarction Breast cancer Colorectal cancer Social History Smoking Status: Former smoker Tobacco Type: Smokeless Tobacco (Dip or Chew) Second Hand Exposure: No; Do You Dip or Chew Tobacco: No; Hx Alcohol Use: No Hx Substance Use: No Preferred Language: Malawian Communication Ability: Effective Visual Impairment: No Limitations Hearing Ability: Normal Manager Community Relations Required: No Beliefs That Will Affect Care: None marital status: Current Living Situation: Spouse current occupational status: retired Other Information That Helps Us Care for You: No Feels Safe at Home: Yes Safety Concerns: Feels Safe At This Time caffeine: Yes Dental Care, Regularly: No Physical Activity Frequency: 1-2 Times per Week Physical Activity Frequency Comment: Rehab twice a week Seatbelt Use: always Sunscreen Use: No Assistive Devices: Crutches, Hearing Aid - Left and Oxygen - Continuous Review of Systems Review of Systems: All systems reviewed & are unremarkable except as noted in Subjective Physical Exam Constitutional: cooperative; no acute distress Eyes: PERRL, conjunctivae normal, anicteric sclerae ENMT: external ear and nose normal, oropharynx normal Neck: trachea midline, no thyromegaly Respiratory: normal respiratory effort; no respiratory distress and no labored breathing Auscultation: + diminished lung sounds (worse in RML, RLL, LLL); no wheezes Cardiovascular: Rate/Rhythm: regular rate and regular rhythm Heart Sounds: no murmur Extremities: no calf tenderness and no edema Gastrointestinal (Abdomen): normal bowel sounds, soft, nontender, no hepatosplenomegaly Musculoskeletal: Short L leg No erythema noted overlying prior incision sites of the LLE/L hip Skin: no rashes, warm and dry Neurologic: PERRL, EOMI, accommodation nl, no face palsy, no dysarthria Psychiatric: A+Ox3, euthymic affect Results & Data Results & Data ([facility]) Vital Signs (Past 12 Hours) Vital Signs Temp Pulse Pulse Resp BP BP Pulse Ox 01/28/21 22:00 66 18 126/77 96 01/28/21 21:30 97 01/28/21 21:09 73 18 97 01/28/21 21:00 94 01/28/21 20:30 97 01/28/21 20:00 97 01/28/21 19:44 72 18 92 01/28/21 19:40 37.2 C 72 74 22 178/131 H 178/131 H 96 01/28/21 19:39 72 34 H 178/131 H 86 L Supervising Physician Co-Signing Physician Notes Patient seen and examined, chart reviewed, case discussed with Dr. Solano and I agree with his assessment and plan as documented above. Briefly, patient is a 70-year-old man presenting with worsening shortness of breath, bilateral pleural effusions. Patient had thoracentesis performed on 01/17/2020 one of his left pleural effusion. He presents complaining of progressive shortness of breath, dry cough and chest pressure over the last several days. He has increased his home oxygen from 2 L to 3.5 L. On exam he is afebrile, hemodynamically stable, no acute distress He has diminished breath sounds throughout mid and lower lung hays bilaterally, no rales/rhonchi/wheezes Remainder of physical exam unremarkable Labs and images reviewed Significant for stable normochromic/normocytic anemia Chest x-ray appears to have bilateral pleural effusions, right greater than left Assessment/plan: 70-year-old male presenting with progressive shortness of breath over the last several days. Found to have bilateral pleural effusions. Patient with history of the same status post left-sided thoracentesis performed by pulmonology in the past. No respiratory distress. No need for urgent thoracentesis. Admit to medical Supplemental oxygen as needed Lasix Pulmonary consultation appreciated Remainder of plan as above Resident Activity Tracking Resident Involvement: Resident Care Provided Care Provided: Adult Hospital Medicine
[2021-01-29] MEDS ORDERED: ONDANSETRON INJ 2 MG/ML 2 ML VIAL IV PRN (01:55)
[2021-01-29] MEDS ORDERED: ACETAMINOPHEN 325 MG TAB PO PRN (01:55)
[2021-01-29] MEDS ORDERED: ALBUTEROL HFA 8 GM INHALER INH PRN (01:55)
[2021-01-29] MEDS: buPROPion HCl 100 MG TABLET PO SCH ×3 (02:27→20:39)
[2021-01-29] MEDS: traZODone HCL 50 MG TAB PO SCH ×2 (02:28→20:43)
[2021-01-29] MEDS: METOPROLOL TARTRATE 25 MG TAB PO SCH ×3 (02:28→20:40)
--- NOTE | 2021-01-29 02:51 | Emergency Department Note ---
Impression & Plan Pleural effusion, right, Pulmonary edema, History of COVID-19 ED Provider Note NAME: NOY COREY AGE: 70 SEX: M ARRIVES VIA: Ambulance INFORMANT: Patient, ED PROVIDER(S): Mango Ayers MD CHIEF COMPLAINT: Sob PLAN: Disposition: Admit MEDICAL DECISION MAKING: The patient is a pleasant 78-year-old gentleman with a past medical history of paroxysmal atrial fibrillation, GERD, pulmonary hypertension, history of COVID- 19 in August 2020 with subsequent development of pleural effusions with recent thoracentesis of left pleural effusion proximately 2 weeks ago by his private branch exchange installer, Dr. Calloway who presents to the emergency department for evaluation of worsening shortness of breath over the past week in the setting of taking himself off of his home oxygen because he was feeling improved and per report of his not being compliant with his medications including Lasix twice daily. The patient denies any fevers, chills, new cough, congestion, GI or symptoms. He reports feeling significant more dyspneic despite resuming his home oxygen and needing to increase his O2 from 2 L to 3 L. He further reports he has gotten so winded that it is hard for even to eat and drink because he loses his breath. On arrival the patient is chronically ill-appearing but no acute distress, afebrile with stable vital signs. He is mildly dyspneic but no acute distress. He has diminished breath sounds of the right lower lung hays and scant intermittent wheeze. EKG without overt acute ischemia. 2V CXR with moderate-sized right pleural effusion similar to prior with venous congestion and likely pulmonary edema per my preliminary review. WBC and platelets within normal limits. H/H similar to prior. VBG with mild hypercapnia without significant acidemia. Chemistry without metabolic acidosis. Electrolytes and LFTs are unremarkable. Troponin negative/undetectable. BNP is not elevated. Lipase with normal limits. COVID-19 PCR was negative. The patient's worsening respiratory status in the setting of hypervolemia reasonable to meet the patient for further management and likely pulmonology consultation for possible right-sided thoracentesis. Patient was in agreement and preferred this plan. Case was discussed with Dr. Liang, [facility] hospitalist, who will evaluate the patient for admission. Triage Nursing notes reviewed and agree them. Prior medical records reviewed Vital Signs: reviewed and remarkable for tachypneic Differential diagnosis: Reactive airway disease, pneumonia, pneumothorax, COPD, CHF, infections, cardiac ischemia, pulmonary embolism, musculoskeletal, gastrointestinal, as well as other pathologies. ER treatment provided: See below. Diagnostics interpreted by me: ECG: Normal sinus rhythm, 70 bpm, no ectopy, no overt ST elevation or depre ssion, QTC 410, QRS 86. V3 and V4 artifact noted. Cardiac Monitoring: An order for continuous cardiac monitoring was placed and demonstrated Normal sinus rhythm, 70 bpm, no ectopy. Laboratory studies: See below Imaging studies: CXR: Moderate-sized right pleural effusion similar to prior with venous congestion and likely pulmonary edema per my preliminary review. Consultation(s): Case was discussed with Dr. Linag, [facility] hospitalist, who will evaluate the patient for admission. HPI: The patient is a pleasant 78-year-old gentleman with a past medical history of paroxysmal atrial fibrillation, GERD, pulmonary hypertension, history of COVID-19 in August 2020 with subsequent development of pleural effusions with recent thoracentesis of left pleural effusion proximately 2 weeks ago by his private branch exchange installer, Dr. Calloway who presents to the emergency department for dariusz luation of worsening shortness of breath over the past week in the setting of taking himself off of his home oxygen because he was feeling improved and per report of his not being compliant with his medications including Lasix twice daily. The patient denies any fevers, chills, new cough, congestion, GI or symptoms. He reports feeling significant more dyspneic despite resuming his home oxygen and needing to increase his O2 from 2 L to 3 L. He further reports he has gotten so winded that it is hard for even to eat and drink because he loses his breath. ROS: See above HPI for pertinent positives & negatives. A total of 10 systems reviewed and were otherwise negative. PAST MEDICAL HISTORY:See Below PAST SURGICAL HISTORY:See Below FAMILY HISTORY:See Below SOCIAL HISTORY:See Below HOME MEDICATIONS:See Below ALLERGIES:See Below VITALS:See Below PHYSICAL EXAMINATION: GENERAL: Awake, alert, chronically ill-appearing, in no distress HENT: Normocephalic, atraumatic. Oropharynx unremarkable. EYES: Normal conjunctiva. Sclera non-icteric. NECK: Supple. No nuchal rigidity. FROM. No JVD. RESPIRATORY: Mildly dyspneic, diminished breath sounds of the right lower lung hays and scant intermittent wheeze. CARDIAC: Regular rate, normal rhythm. Extremities warm and well perfused. Pulses equal. ABDOMEN: Soft, non-distended. No tenderness to palpation. No rebound or guarding. No masses. RECTAL: Deferred. MUSCULOSKELETAL: Chest examination reveals no tenderness. The back is symmetrical on inspection without obvious abnormality. There is no CVA ten derness to palpation. No joint edema. LOWER EXTREMITIES: Calves are equal size bilaterally and non-tender. Scant BLE edema. No discoloration. NEURO: Normal sensorium. No sensory or motor deficits noted. SKIN: No rash or jaundice noted. Mango Ayers MD Past Med/Surg History Medical History Anxiety Ascites Bilateral pleural effusion Bilateral pleural effusion Chronic back pain Depression Exposure to COVID-19 virus Former smoker GERD (gastroesophageal reflux disease) Glaucoma Hearing deficit hearing aid (left) Hyperlipidemia Leg length discrepancy RLE > LLE s/p multiple left hip revisions (per patient, missing hip joint) due to complications from hip surgery/revisions/MRSA infection- on chronic preventative Bactrim-- uses shoe with elevated heel/crutches Osteoarthritis Peptic ulcer disease 12/2018 Pleural effusion Pneumonia Pneumonia due to 2019 novel coronavirus Restless leg syndrome Shortness of breath Shortness of breath Transient ischemic attack (TIA) x1 (~2014) Surgical History H/O eye surgery 2 DRAINAGE TUBES RT/LEFT EYE FOR GLAUCOMA currently in place History of bilateral cataract extraction History of colonoscopy History of esophagogastroduodenoscopy (EGD) History of hip surgery LEFT HIP SURGERY/REVISIONS (TOTAL OF 9 SURGERIES) History of laminectomy L3-L5 laminectomy: 05/12/15: Grade view 1, MAC#3, ETT 8.0 (atraumatic DL x 1) at [facility] History of tonsillectomy and adenoidectomy History of tooth extraction Status post reverse total arthroplasty of left shoulder Family History Father Cerebral aneurysm Denies family history of Ovarian cancer Prostate cancer Myocardial infarction Breast cancer Colorectal cancer Social History Smoking Status: Former smoker Tobacco Type: Smokeless Tobacco (Dip or Chew) Second Hand Exposure: No; Do You Dip or Chew Tobacco: No; Hx Alcohol Use: No Hx Substance Use: No Preferred Language: Romansh Communication Ability: Effective Visual Impairment: No Limitations Hearing Ability: Normal 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: No Beliefs That Will Affect Care: None marital status: Current Living Situation: Spouse current occupational status: retired Other Information That Helps Us Care for You: No Feels Safe at Home: Yes Safety Concerns: Feels Safe At This Time caffeine: Yes Dental Care, Regularly: No Physical Activity Frequency: 1-2 Times per Week Physical Activity Frequency Comment: Rehab twice a week Seatbelt Use: always Sunscreen Use: No Assistive Devices: Crutches, Hearing Aid - Left and Oxygen - Continuous Allergies Allergies Allergy/AdvReac Type Severity Reaction Status Date / Time No Known Allergies Allergy Unknown Verified 01/28/21 21:22 Home Meds Home Medications Medication Instructions Recorded Confirmed alendronate 70 mg PO WK 01/10/19 01/28/21 ascorbic acid (vitamin C) [Vitamin 500 mg PO QAM 01/10/19 01/28/21 C] bupropion HCl 200 mg PO BID 01/10/19 01/28/21 saw palmetto 1,000 mg PO QAM 01/10/19 01/28/21 sulfamethoxazole-trimethoprim 1 tab PO Q12H 01/10/19 01/28/21 [Bactrim DS] tamsulosin [Flomax] 0.4 mg PO QPM 01/10/19 01/28/21 chlorzoxazone 500 mg tablet 750 mg PO Q6H PRN 08/08/19 01/28/21 pantoprazole 40 mg PO QAM 08/01/20 01/28/21 multivitamin 1 tab PO QAM 10/05/20 01/28/21 omega 5-czw-ejv-fish oil [Fish Oil] 1 cap PO QAM 10/05/20 01/28/21 trazodone 150 mg PO HS 10/05/20 01/28/21 acetaminophen 325 mg capsule 650 mg PO DAILY PRN cap 10/16/20 01/28/21 aspirin 81 mg tablet,delayed 81 mg PO DAILY 10/16/20 01/28/21 release cholecalciferol (vitamin D3) 50 50 mcg PO DAILY 10/16/20 01/28/21 mcg (2,000 unit) capsule lidocaine 5 % topical patch 1 patch TOPICAL DAILY PRN 10/16/20 01/28/21 qbdaarb-pwkcayemb-wggf 333 mg-133 1 tab PO DAILY 11/06/20 01/28/21 mg-5 mg tablet glucosamine-chondroitin 250 mg-200 2 tab PO TID 01/15/21 01/28/21 mg tablet ferrous sulfate 65 mg PO DAILY 01/16/21 01/28/21 metoprolol tartrate 25 mg PO BID 01/16/21 01/28/21 terbinafine HCl 250 mg PO DAILY 01/16/21 01/28/21 Previous Rx's Medication Instructions Recorded HEEL LIFTS #1 ea 04/24/20 celecoxib 100 mg capsule 100 mg PO BID #60 cap 12/08/20 gabapentin 300 mg capsule 600 mg PO TID #120 cap 12/15/20 Oxygen Home #1 ea 12/24/20 albuterol sulfate 90 mcg/actuation 2 puff INHALATION Q6H PRN #8.5 g 12/24/20 aerosol inhaler fluticasone furoate 100 1 inh INHALATION DAILY #28 ea 12/30/20 mcg-vilanterol 25 mcg/dose inhalation powder furosemide 40 mg tablet 40 mg PO DAILY #30 tab 01/15/21 Results & Data (ED) Vital Signs Vital Signs - 24 hr 01/28/21 19:39 01/28/21 19:40 01/28/21 19:44 Temperature 37.2 C Temperature Source Oral Pulse Rate 72 72 72 Pulse Rate [Apical] 74 Pulse Rate from SpO2 Sensor 106 H 91 H Pulse Rhythm Regular Pulse Rhythm [Apical] Regular Pulse Strength Normal Pulse Strength [Apical] Normal Respiratory Rate 34 H 22 18 Respiratory Effort / Characteristics Non-Labored Spontaneous Respiratory Depth Normal Blood Pressure 178/131 H 178/131 H Blood Pressure [Right Arm] 178/131 H Blood Pressure Mean 146 146 Blood Pressure Mean [Right Arm] 146 Blood Pressure Position Semi-fowlers Blood Pressure Position [Right Arm] Semi-fowlers Pulse Oximetry 86 L 96 92 Oxygen Delivery Method Nasal Cannula Oxygen Flow Rate 3 Sepsis Recent Fever Within 48 Hours No Sepsis New/Unexplained Change in Mental Status No Sepsis Action Taken by Nursing No Action Required 01/28/21 20:00 01/28/21 20:30 01/28/21 21:00 Temperature Temperature Source Pulse Rate Pulse Rate [Apical] Pulse Rate from SpO2 Sensor 75 73 74 Pulse Rhythm Pulse Rhythm [Apical] Pulse Strength Pulse Strength [Apical] Respiratory Rate Respiratory Effort / Characteristics Respiratory Depth Blood Pressure Blood Pressure [Right Arm] Blood Pressure Mean Blood Pressure Mean [Right Arm] Blood Pressure Position Blood Pressure Position [Right Arm] Pulse Oximetry 97 97 94 Oxygen Delivery Method Oxygen Flow Rate Sepsis Recent Fever Within 48 Hours Sepsis New/Unexplained Change in Mental Status Sepsis Action Taken by Nursing 01/28/21 21:09 01/28/21 21:30 01/28/21 22:00 Temperature Temperature Source Pulse Rate Pulse Rate [Apical] 73 66 Pulse Rate from SpO2 Sensor 70 68 Pulse Rhythm Pulse Rhythm [Apical] Regular Pulse Strength Pulse Strength [Apical] Normal Respiratory Rate 18 18 Respiratory Effort / Characteristics Non-Labored Spontaneous Non-Labored Spontaneous Respiratory Depth Normal Blood Pressure Blood Pressure [Right Arm] 126/77 Blood Pressure Mean Blood Pressure Mean [Right Arm] 93 Blood Pressure Position Blood Pressure Position [Right Arm] Semi-fowlers Pulse Oximetry 97 97 96 Oxygen Delivery Method Nasal Cannula Nasal Cannula Oxygen Flow Rate 3 3 Sepsis Recent Fever Within 48 Hours Sepsis New/Unexplained Change in Mental Status Sepsis Action Taken by Nursing 01/28/21 23:30 Temperature Temperature Source Pulse Rate Pulse Rate [Apical] 80 Pulse Rate from SpO2 Sensor Pulse Rhythm Pulse Rhythm [Apical] Pulse Strength Pulse Strength [Apical] Respiratory Rate 16 Respiratory Effort / Characteristics Respiratory Depth Blood Pressure Blood Pressure [Right Arm] 132/90 Blood Pressure Mean Blood Pressure Mean [Right Arm] 104 Blood Pressure Position Blood Pressure Position [Right Arm] Sitting Pulse Oximetry 96 Oxygen Delivery Method Room Air Oxygen Flow Rate Sepsis Recent Fever Within 48 Hours Sepsis New/Unexplained Change in Mental Status Sepsis Action Taken by Nursing Laboratory Data Attestation: I reviewed the patient's lab results. Result diagrams: 01/28/21 19:49 01/28/21 19:49 Lab Results 01/28/21 01/28/21 01/28/21 Range/Units 19:49 19:49 19:49 WBC 7.99 (4.8-10.8) K/uL RBC 4.50 L (4.7-6.1) M/uL Hgb 12.4 L (14.0-18.0) g/dL Hct 38.6 L (42-52) % MCV 85.8 (80-100) fL MCH 27.6 (25-34) pg MCHC 32.1 (32-36) g/dL RDW Std Deviation 53.1 H (36.4-46.3) fL RDW Coeff of Timbo 16.8 H (11.5-14.5) % Plt Count 354 (130-400) K/uL MPV 9.1 (7.4-10.4) fL Immature Gran % (Auto) 0.3 % Neut % (Auto) 59.2 % Lymph % (Auto) 24.9 % Fajardo % (Auto) 11.3 % Eos % (Auto) 3.8 % Baso % (Auto) 0.5 % Neut # (Auto) 4.74 (1.4-6.5) K/uL Lymph # (Auto) 1.99 (1.2-3.4) K/uL Fajardo # (Auto) 0.90 H (0.11-0.59) K/uL Eos # (Auto) 0.30 (0-0.5) K/uL Baso # (Auto) 0.04 (0-0.2) K/uL Immature Gran # (Auto) 0.02 (0.00-0.02) K/uL PT 10.3 (9.0-12.0) Seconds INR 1.0 (0.9-1.1) APTT 30.8 (21.0-31.0) Seconds PTT Ratio 1.2 VBG pH (7.36-7.41) VBG pCO2 (38-50) mmHg VBG pO2 mmHg VBG HCO3 mmol/L VBG O2 Saturation % VBG Base Excess mEq/L Barometric Pressure mm/Hg Sodium 139 (136-145) mmol/L Potassium 4.1 (3.5-5.1) mmol/L Chloride 106 (98-107) mmol/L Carbon Dioxide 27 (21-32) mmol/L Anion Gap 6.0 (3-11) BUN 22 H (7-18) mg/dl Creatinine 0.97 (0.6-1.4) mg/dl Est Cr Clr Drug Dosing 77.8 ml/min Est GFR ( Amer) 91.3 ml/min Est GFR (Non-Af Amer) 78.8 ml/min BUN/Creatinine Ratio 23.1 H (10-20) Glucose 79 (70-99) mg/dl Calcium 9.0 (8.5-10.1) mg/dl Phosphorus 4.1 (2.5-4.9) mg/dl Magnesium 2.2 (1.8-2.4) mg/dl Total Bilirubin 0.1 L (0.2-1) mg/dl Direct Bilirubin < 0.1 (0-0.2) mg/dl AST 30 (15-37) U/L ALT 33 (12-78) U/L Alkaline Phosphatase 106 (45-117) U/L Troponin I < 0.015 (0-0.045) ng/ml NT-Pro-B Natriuret Pep 234 (0-900) pg/ml Total Protein 7.2 (6.4-8.2) gm/dl Albumin 3.1 L (3.4-5.0) gm/dl Globulin 4.1 H (2.5-4.0) gm/dl Albumin/Globulin Ratio 0.8 L (0.9-2) Lipase 104 (73-393) U/L COVID-19 Eval Order SARS-CoV-2 (PCR) (Negative) 01/28/21 01/28/21 01/28/21 Range/Units 20:55 Unknown Unknown WBC (4.8-10.8) K/uL RBC (4.7-6.1) M/uL Hgb (14.0-18.0) g/dL Hct (42-52) % MCV (80-100) fL MCH (25-34) pg MCHC (32-36) g/dL RDW Std Deviation (36.4-46.3) fL RDW Coeff of Timbo (11.5-14.5) % Plt Count (130-400) K/uL MPV (7.4-10.4) fL Immature Gran % (Auto) % Neut % (Auto) % Lymph % (Auto) % Fajardo % (Auto) % Eos % (Auto) % Baso % (Auto) % Neut # (Auto) (1.4-6.5) K/uL Lymph # (Auto) (1.2-3.4) K/uL Fajardo # (Auto) (0.11-0.59) K/uL Eos # (Auto) (0-0.5) K/uL Baso # (Auto) (0-0.2) K/uL Immature Gran # (Auto) (0.00-0.02) K/uL PT (9.0-12.0) Seconds INR (0.9-1.1) APTT (21.0-31.0) Seconds PTT Ratio VBG pH 7.33 L (7.36-7.41) VBG pCO2 58 H (38-50) mmHg VBG pO2 37 mmHg VBG HCO3 30 mmol/L VBG O2 Saturation 70.1 % VBG Base Excess 2.3 mEq/L Barometric Pressure 734.2 mm/Hg Sodium (136-145) mmol/L Potassium (3.5-5.1) mmol/L Chloride (98-107) mmol/L Carbon Dioxide (21-32) mmol/L Anion Gap (3-11) BUN (7-18) mg/dl Creatinine (0.6-1.4) mg/dl Est Cr Clr Drug Dosing ml/min Est GFR ( Amer) ml/min Est GFR (Non-Af Amer) ml/min BUN/Creatinine Ratio (10-20) Glucose (70-99) mg/dl Calcium (8.5-10.1) mg/dl Phosphorus (2.5-4.9) mg/dl Magnesium (1.8-2.4) mg/dl Total Bilirubin (0.2-1) mg/dl Direct Bilirubin (0-0.2) mg/dl AST (15-37) U/L ALT (12-78) U/L Alkaline Phosphatase (45-117) U/L Troponin I (0-0.045) ng/ml NT-Pro-B Natriuret Pep (0-900) pg/ml Total Protein (6.4-8.2) gm/dl Albumin (3.4-5.0) gm/dl Globulin (2.5-4.0) gm/dl Albumin/Globulin Ratio (0.9-2) Lipase (73-393) U/L COVID-19 Eval Order Covid19 at [facility] SARS-CoV-2 (PCR) NEGATIVE (Negative) Administered Medications Bupropion HCl (Bupropion Hcl 100 Mg Tablet) 200 mg PO BID GUILLERMO Stop: 02/28/21 01:54 Last Admin: 01/29/21 02:27 Dose: 200 mg Documented by: [id number] Metoprolol Tartrate (Metoprolol Tartrate 25 Mg Tab) 25 mg PO BID GUILLERMO Stop: 02/28/21 01:54 Last Admin: 01/29/21 02:28 Dose: 25 mg Documented by: [id number] Trazodone HCl (Trazodone Hcl 50 Mg Tab) 150 mg PO HS GUILLERMO Stop: 02/28/21 01:54 Last Admin: 01/29/21 02:28 Dose: 150 mg Documented by: [id number] Discontinued Medications Albuterol (Albut/Ipratrop 3mg/0.5mg Neb 3 Ml Vial) 3 ml NEB NOW STA Stop: 01/28/21 20:41 Last Admin: 01/28/21 21:07 Dose: 3 ml Documented by: [id number] Dexamethasone Sodium Phosphate (DexamethasonePf 10 Mg/Ml Vial) 10 mg IV NOW ONE Stop: 01/28/21 20:41 Last Admin: 01/28/21 21:20 Dose: 10 mg Documented by: [id number] Furosemide (Furosemide 40 Mg/4 Ml Vial) 40 mg IV NOW STA Stop: 01/28/21 22:52 Last Admin: 01/28/21 23:07 Dose: 40 mg Documented by: [id number] Guaifenesin (Guaifenesin 600 Mg Tabcr) 600 mg PO NOW STA Stop: 01/28/21 20:41 Last Admin: 01/28/21 21:20 Dose: 600 mg Documented by: [id number] Discharge Plan Visit Data Chief Complaint: Chest Pain Stated Complaint: CP/SOB ED Provider: Mango Ayers Discharge Problem: Pleural effusion, right, Pulmonary edema, History of COVID-19 Patient Disposition: Admitted As Inpatient Discharge Instructions Interventions: ED Discharge Assessment Last Done: 01/29/21 01:22 Discharge Problem: Pulmonary edema Qualifiers: Chronicity: chronic Qualified Code(s): J81.1 - Chronic pulmonary edema
--- NOTE | 2021-01-29 05:01 | Billing Data ---
Date of Service January 28, 2021 Coding Level of Care Code 28653 Initial Inpt Care Lvl 3
--- NOTE | 2021-01-29 06:55 | XRay Report ---
XR chest 2V PA/lateral CLINICAL HISTORY: sob, s/o thoracentesis COMPARISON STUDY: Chest radiograph January 16, 2021. FINDINGS: Left shoulder arthroplasty is partially imaged. There is an old right clavicular fracture. There is no pneumothorax. Bilateral airspace opacities are noted. There is interstitial thickening. M oderate right and [id number] left pleural effusions are noted. Right pleural effusion is simil ar to prior chest radiograph. Left pleural effusion has slightly increased. Cardiomegaly is unchanged . IMPRESSION: 1. No pneumothorax. 2. Moderate right and iggwl-bt-[id number] left pleural effusions. 3. Interstitial thickening suggestive of pulmonary edema. Bilateral opacities may reflect superimpose d infectious process or alveolar edema. ACT 112: Negative or not required by law. Electronically signed by: Kalyan Martinez M.D. 01/29/2021 6:54 AM
[2021-01-29] MEDS: FUROSEMIDE 40 MG TAB PO SCH (08:14)
[2021-01-29] MEDS: FLUTICASONE/VILANTEROL 100/25MCG 14 PUFFS/INHALER INH SCH (08:14)
[2021-01-29] MEDS: SULFAMETHOXAZOLE/TRIMETHOPRIM DS 800/160MG TAB PO SCH ×2 (08:15→20:43)
[2021-01-29] MEDS: PANTOprazole 40 MG TAB PO SCH (08:15)
[2021-01-29] MEDS: GABAPENTIN 300 MG CAP PO SCH ×3 (08:15→20:40)
[2021-01-29 08:34] LABS: Eosinophils # (auto) 0.01 K/uL (0-0.5); Eosinophils % (auto) 0.3 %; Hematocrit (blood only) 37.2 % (42-52); Hemoglobin 11.8 g/dL (14.0-18.0); Immature Granulocytes # (auto) 0.01 K/uL (0.00-0.02); Immature Granulocytes % (auto) 0.3 %; Lymphocytes % (auto) 19.6 %; Mean Corpuscular Hemoglobin 26.6 pg (25-34); Mean Corpuscular Hgb Conc 31.7 g/dL (32-36); Mean Corpuscular Volume 83.8 fL (80-100); Mean Platelet Volume 8.6 fL (7.4-10.4); Monocytes # (auto) 0.14 K/uL (0.11-0.59); Monocytes % (auto) 3.9 %; Neutrophils # (auto) 2.71 K/uL (1.4-6.5); Neutrophils % (auto) 75.9 %; Platelet Count 300 K/uL (130-400); RDW Coefficient of Variation 16.6 % (11.5-14.5); Red Blood Count 4.44 M/uL (4.7-6.1); White Blood Count 3.57 K/uL (4.8-10.8)
[2021-01-29 09:07] LABS: BUN Creatinine Ratio 25.1 (10-20); Calcium 8.8 mg/dl (8.5-10.1); Creatinine Clr Calc Pharmacy 97.9 ml/min; Est GFR (African American) 106.6 ml/min; Est GFR (Non-African American) 91.9 ml/min; Potassium 4.1 mmol/L (3.5-5.1)
[2021-01-29 09:18] LABS: Thyroid Stimulating Hormone 1.25 uIu/ml (0.300-4.500)
--- NOTE | 2021-01-29 12:18 | XRay Report ---
XR chest 2V PA/lateral CLINICAL HISTORY: sob COMPARISON STUDY: January 28, 2021 FINDINGS: No pneumothorax. Stable bilateral pleural effusion which is moderate to large on the right and minimal on the left. Redemonstration of patchy bilateral reticular opacities with mild interval improvement of airspace co mponent at the left mid to lower lung. Opacities are stable on the right and associated with pleural thickening /tracking up pleural fluid at the right lateral chest wall. Cardiomediastinal silhouette is stable and partially obscured by surrounding opacities. Pulmonary vasculature is indistinct.. Aorta is calcified. Osseous structures: Degenerative changes of the spine. Deformity of the right clavicle and prostheti c left shoulder joint are stable since prior. IMPRESSION: 1. Stable bilateral pleural effusion. 2. Mild interval improvement of opacities at the left mid to lower lung. ACT 112: Negative or not required by law. The above report was generated using voice recognition software. It may contain grammatical, syntax o r spelling errors. Electronically signed by: Hannah Hardin DO 01/29/2021 12:17 PM
--- NOTE | 2021-01-29 12:50 | Electrocardiogram Report ---
Test Reason : Blood Pressure : / mmHG Vent. Rate : 070 BPM Atrial Rate : 070 BPM P-R Int : 116 ms QRS Dur : 086 ms QT Int : 380 ms P-R-T Axes : 016 017 043 degrees QTc Int : 410 ms Poor data quality, interpretation may be adversely affected Normal sinus rhythm Normal ECG When compared with ECG of 05-OCT-2020 08:45, No significant change Confirmed by Jaret Zambrano ([id number]) on 01/29/2021 12:49:44 PM Referred By: REFERRED SELF Confirmed By:Jaret Zambrano
--- NOTE | 2021-01-29 13:11 | XRay Report ---
SINGLE VIEW CHEST CLINICAL HISTORY: Status post right side thoracentesis. FINDINGS: An AP, portable, upright chest radiograph is compared to study performed earlier the same d ay 01/29/2021 and correlated with chest CT dated 10/05/2020. The examination is degraded by portable tech nique and patient rotation. The heart is mildly enlarged noting atherosclerotic calcification of the thoracic aorta. Pulmonary vascular congestion appears increased. Bilateral airspace opacities likely represent interstitial edema. There are right larger than left pleural effusions with bibasilar conso lidation. Loculated fluid tracks to the right apex. There is no pneumothorax. The skeletal structures are osteopenic. The bony thorax appears intact. A large calcific density and chronic change is again seen involving the right clavicle. A left shoulder arthroplasty is in place. Large calcified joint b odies are noted around the left shoulder. IMPRESSION: 1. No pneumothorax is identified post procedure. 2. Congestive failure appears increased from previous. 3. Right larger than left pleural effusions with bibasilar consolidation. Electronically signed by: Shade Guerin M.D. 01/29/2021 1:09 PM
--- NOTE | 2021-01-29 13:37 | Hospitalist Progress Note ---
Date of Service January 29, 2021 Assessment & Plan (1) Shortness of breath: Patient is a 70 year old male with PMHx Bilateral Pleural effusions, Chronic Hypoxemic respiratory failure, COVID-19 illness, Pulmonary hypertension, Atrial fibrillation, HLD, GERD, who presents with 2-3 day history of worsening shortness of breath, orthopnea, and dyspnea on exertion. Acute on Chronic Hypoxemic Respiratory Failure, likely secondary to B/L Pleural Effusions -Suspect that patient's SOB is likely multifactorial, but most related to b/l pleural effusions at this time -Patient had recent thoracentesis 01/16/21 of his L pleural effusion which based on Light's Criteria appears transudative -Repeat CXR in AM -Received Lasix 40 IV, Duoneb, and Decadron 10mg in ED -Continue Lasix -Continue Breo Ellipta -Continue Albuterol PRN -Pulmonology consulted Paroxysmal AFib -Continue Metoprolol -Monitor closely due to hx Mobitz 1 second-degree AV block in the past -Not currently on anticoagulation, working with cardiology at this time to determine need via buttermaker continuous churn monitoring Depression -Continue Wellbutrin -Continue Trazodone Hx MRSA Infection L Hip -Continue suppressive Bactrim therapy GERD -Continue Protonix BPH -Continue Flomax Dispo: Med/Surg Telemetry for monitoring and possible thoracentesis FEN: HH diet DVT: SCDs Code: Full Admission and Anticipated Discharge Date Admission Date: January 29, 2021 Results & Data Results & Data ([facility]) Vital Signs (Past 12 Hours) Vital Signs Temp Pulse Pulse Resp BP BP Pulse Ox 01/29/21 11:47 36.5 C 78 18 130/74 98 01/29/21 07:45 103 H 01/29/21 07:00 36.7 C 82 20 135/80 95 01/29/21 02:07 99 H 01/29/21 01:40 36.6 C 100 H 20 134/82 92
--- NOTE | 2021-01-29 13:51 | Procedure Note ---
Procedure Note Date of Service January 29, 2021 Note Procedure: Diagnostic and/or therapeutic ultrasound-guided catheter thoracentesis Intranet Support: Dr. Mark Anthony Calloway Indication: Pleural effusion Consent: Signed by patient and verified with timeout prior to procedure Anesthesia: 8 mL's of 1% lidocaine without epinephrine given locally Procedure: Consent was verified and timeout performed. Appropriate imaging studies were reviewed prior to the procedure. Patient was placed in a semirecumbent and limited thoracic ultrasound was performed of the right chest. See separate imaging. The site appropriate for thoracentesis was selected. The skin was prepped and draped in normal sterile fashion. Lidocaine was used for local analgesia. Fluid was aspirated via the finder needle. A small skin lexie was made with the scalpel and the catheter over the needle apparatus was advanced over the rib into the pleural space. Using the syringe one-way valve system, a total of 1250 mL's of landon-colored pleural fluid was removed. Procedure was terminated due to chest discomfort. The catheter was removed and observed to be intact. A sterile dressing was applied. Post procedure chest x-ray was ordered. Fluid was sent for LDH, total protein, cell count, glucose and cytology The patient tolerated the procedure well without obvious complication. Coding CPT Codes Pulmonary/Thoracic - Pulmonary and Thoracic: 13813 Thoracentesis w imaging ([id number]) [facility] Procedure Codes (Charges) Pulmonary/Thoracic Procedure 1: Pulmonary and Thoracic: 36727 Thoracentesis w imaging
--- NOTE | 2021-01-29 13:56 | Pulmonary Consultation ---
Date of Consultation January 29, 2021 Assessment & Plan (1) Bilateral pleural effusion: 70-year-old male with a past medical history of atrial fibrillation and pulmonary hypertension presenting to the hospital due to shortness of breath and bilateral effusions. Bilateral pleural effusions: Etiology is unclear at this time, but I do suspect a component of cardiac disease. Repeat echocardiogram is pending. Prior echo in September demonstrated normal LV function with mild concentric left ventricular hypertrophy. I performed a thoracentesis of the right hemithorax and was able to remove 1450 mL of fluid with improvement of symptoms. Repeat pleural fluid studies have been sent including cytology and triglycerides. I will ask for radiology to perform a thoracentesis of the left hemithorax tomorrow. He may be a candidate for Pleurx catheter placement if we are not able to maintain euvolemia with oral Lasix therapy. I discussed the case with the resident physician service. Thank you for the consultation. We will continue to follow along with you. (2) Shortness of breath: (3) Acute respiratory failure with hypoxia: (4) Paroxysmal atrial fibrillation: History of Present Illness Reason for Consultation: Bilateral pleural effusions Attending Physician: Gwen Morrison MD History of Present Illness 70-year-old male with past medical history of recent COVID-19 illness, weakness, GERD, atrial fibrillation and CHF presenting to the hospital due to shortness of breath. Pulmonary was consulted for bilateral effusions. Over the last several days patient has had increasing cough and orthopnea symptoms. He feels much better today and less short of breath after receiving IV Lasix. Adriano clark seen the patient in the pulmonary clinic in the past and performed a thoracentesis of the left hemithorax on 01/16/2021 removing roughly 2.2 L of fluid. Pleural effusion at that time was mildly exudative. He also underwent chest tube placement in September for a large right pleural effusion. Right pleural effusion at that time appeared to be a transudate. Allergies Allergy/AdvReac Type Severity Reaction Status Date / Time No Known Allergies Allergy Unknown Verified 01/28/21 21:22 Home Medications Medication Instructions Recorded Confirmed Type alendronate 70 mg PO WK 01/10/19 01/28/21 History ascorbic acid (vitamin C) [Vitamin 500 mg PO QAM 01/10/19 01/28/21 History C] bupropion HCl 200 mg PO BID 01/10/19 01/28/21 History saw palmetto 1,000 mg PO QAM 01/10/19 01/28/21 History sulfamethoxazole-trimethoprim 1 tab PO Q12H 01/10/19 01/28/21 History [Bactrim DS] tamsulosin [Flomax] 0.4 mg PO QPM 01/10/19 01/28/21 History chlorzoxazone 500 mg tablet 750 mg PO Q6H PRN 08/08/19 01/28/21 History HEEL LIFTS #1 ea 04/24/20 01/15/21 Rx pantoprazole 40 mg PO QAM 08/01/20 01/28/21 History multivitamin 1 tab PO QAM 10/05/20 01/28/21 History omega 4-pwj-nwm-fish oil [Fish Oil] 1 cap PO QAM 10/05/20 01/28/21 History trazodone 150 mg PO HS 10/05/20 01/28/21 History acetaminophen 325 mg capsule 650 mg PO DAILY PRN cap 10/16/20 01/28/21 History aspirin 81 mg tablet,delayed 81 mg PO DAILY 10/16/20 01/28/21 History release cholecalciferol (vitamin D3) 50 50 mcg PO DAILY 10/16/20 01/28/21 History mcg (2,000 unit) capsule lidocaine 5 % topical patch 1 patch TOPICAL DAILY PRN 10/16/20 01/28/21 History hjsiyto-fttqcdrat-hpdr 333 mg-133 1 tab PO DAILY 11/06/20 01/28/21 History mg-5 mg tablet celecoxib 100 mg capsule 100 mg PO BID #60 cap 12/08/20 01/28/21 Rx gabapentin 300 mg capsule 600 mg PO TID #120 cap 12/15/20 01/28/21 Rx Oxygen Home #1 ea 12/24/20 01/15/21 Rx albuterol sulfate 90 mcg/actuation 2 puff INHALATION Q6H PRN #8.5 g 12/24/20 01/28/21 Rx aerosol inhaler fluticasone furoate 100 1 inh INHALATION DAILY #28 ea 12/30/20 01/28/21 Rx mcg-vilanterol 25 mcg/dose inhalation powder furosemide 40 mg tablet 40 mg PO DAILY #30 tab 01/15/21 01/28/21 Rx glucosamine-chondroitin 250 mg-200 2 tab PO TID 05/20/21 06/02/21 History mg tablet ferrous sulfate 65 mg PO DAILY 01/16/21 01/28/21 History metoprolol tartrate 25 mg PO BID 01/16/21 01/28/21 History terbinafine HCl 250 mg PO DAILY 01/16/21 01/28/21 History Patient History Medical History Anxiety Ascites Bilateral pleural effusion Bilateral pleural effusion Chronic back pain Depression Exposure to COVID-19 virus Former smoker GERD (gastroesophageal reflux disease) Glaucoma Hearing deficit hearing aid (left) Hyperlipidemia Leg length discrepancy RLE > LLE s/p multiple left hip revisions (per patient, missing hip joint) due to complications from hip surgery/revisions/MRSA infection- on chronic preventative Bactrim-- uses shoe with elevated heel/crutches Osteoarthritis Peptic ulcer disease 12/2018 Pleural effusion Pneumonia Pneumonia due to 2019 novel coronavirus Restless leg syndrome Shortness of breath Shortness of breath Transient ischemic attack (TIA) x1 (~2014) Surgical History H/O eye surgery 2 DRAINAGE TUBES RT/LEFT EYE FOR GLAUCOMA currently in place History of bilateral cataract extraction History of colonoscopy History of esophagogastroduodenoscopy (EGD) History of hip surgery LEFT HIP SURGERY/REVISIONS (TOTAL OF 9 SURGERIES) History of laminectomy L3-L5 laminectomy: 05/12/15: Grade view 1, MAC#3, ETT 8.0 (atraumatic DL x 1) at [facility] History of tonsillectomy and adenoidectomy History of tooth extraction Status post reverse total arthroplasty of left shoulder Family History Father Cerebral aneurysm Denies family history of Ovarian cancer Prostate cancer Myocardial infarction Breast cancer Colorectal cancer Social History Smoking Status: Former smoker Tobacco Type: Smokeless Tobacco (Dip or Chew) Second Hand Exposure: No; Do You Dip or Chew Tobacco: No; Hx Alcohol Use: No Hx Substance Use: No Preferred Language: Tajik Communication Ability: Effective Visual Impairment: No Limitations Hearing Ability: Normal Pot Room Tapper Required: No Beliefs That Will Affect Care: None marital status: Current Living Situation: Spouse current occupational status: retired Other Information That Helps Us Care for You: No Feels Safe at Home: Yes Safety Concerns: Feels Safe At This Time caffeine: Yes Dental Care, Regularly: No Physical Activity Frequency: 1-2 Times per Week Physical Activity Frequency Comment: Rehab twice a week Seatbelt Use: always Sunscreen Use: No Assistive Devices: Crutches Review of Systems Review of Systems: All systems reviewed & are unremarkable except as noted in HPI & below Physical Exam Constitutional: + frail appearing Eyes: PERRL, conjunctivae normal, anicteric sclerae Respiratory: Diminished lung sounds bilaterally. No crackles. Cardiovascular: RRR, no murmur, no edema Gastrointestinal (Abdomen): normal bowel sounds, soft, nontender, no hepatosplenomegaly Musculoskeletal: no cyanosis or clubbing, extremities motor strength 5/5 Neurologic: PERRL, EOMI, accommodation nl, no face palsy, no dysarthria Psychiatric: A+Ox3, euthymic affect Results & Data [facility] Vital Signs (Past 12 Hours) Vital Signs Temp Pulse Pulse Resp BP Pulse Ox 01/29/21 11:47 97.7 F 78 18 130/74 98 01/29/21 07:45 103 H 01/29/21 07:00 98.1 F 82 20 135/80 95 01/29/21 02:07 99 H vital signs, labs and imaging reviewed. Initial chest x-ray demonstrated bilateral effusions and pulmonary edema. PG Care Time/CCT Total # of Minutes Spent Total Time Spent with Patient: Total time spent is greater than 50% in coordination of care (as documented) at patient's floor/unit and/or counseling patient: Coding Level of Care Code 17030 Initial Inpt Care Lvl 3 Diagnoses Bilateral pleural effusion J90 Shortness of breath R06.02 Acute respiratory failure with hypoxia J96.01 Paroxysmal atrial fibrillation I48.0
[2021-01-29] MEDS ORDERED: oxyCODONE HCL IR 5 MG TAB (IMMEDIATE RELEASE) PO STA (14:06)
--- NOTE | 2021-01-29 14:18 | XCELERA ---
[id number] \\[id number]
[2021-01-29 14:20] LABS: Total Protein Pleural Fluid 3.4 g/dl
--- NOTE | 2021-01-29 17:03 | Medical Student Progress Note ---
Date of Service January 29, 2021 Assessment & Plan (1) Shortness of breath: Ms. Saunders is a 70-year-old male with a history of bilateral pleural effusions, chronic hypoxemic respiratory failure, COVID-19, pulmonary hypertension, atrial fibrillation, hyperlipidemia, and GERD who presents with 2- 3 day history of worsening shortness of breath, orthopnea, and dyspnea on exertion. Acute on Chronic Hypoxemic Respiratory Failure, likely secondary to Bilateral Pleural Effusions: - Suspect that patient's SOB is likely multifactorial, but most related to b/l pleural effusions at this time. - Patient had recent thoracentesis 01/16/21 of his L pleural effusion which based on Light's Criteria appeared transudative at that time without microbial growth noted. - Right-sided thoracentesis performed today with 1400 mL of fluid drained. - Post-procedure CXR showed congestive failure increased from previous with right larger than left pleural effusions with bibasilar consolidation. - Received Lasix 40 IV, Duoneb, and Decadron 10mg in ED. - Continue Lasix; will receive 40 mg IV in the morning. - Continue Breo Ellipta. - Continue Albuterol PRN. - Patient with undergo left-sided thoracentesis with radiology tomorrow. Paroxysmal AFib: - Continue Metoprolol. - Monitor closely due to hx Mobitz 1 second-degree AV block in the past. - Currently on heparin for VTE prophylaxis. Will continue to look into the need for anticoagulation moving forward. Depression: - Continue Wellbutrin. - Continue Trazodone. Hx MRSA Infection L Hip: - Continue suppressive Bactrim therapy. GERD: - Continue Protonix. BPH: - Continue Flomax. Dispo: Med/Surg Telemetry for monitoring and thoracentesis FEN: HH diet DVT: Heparin Code: Full Admission and Anticipated Discharge Date Admission Date: January 29, 2021 Supervising Attestation I was present with the medical student during the service, interview and the physical exam. I independently interviewed the patient and performed the physical exam reviewed the chart and verified the documentation and I agree with the assessment and plan of Criselda Novak MS 4. Davis Batista MD, [facility] Resident Attending Physician Medical Student Supervision Note: I independently interviewed and examined the patient and verified the vargas history and physical, reviewed labs and image studies, discussed the case with the medical student Criselda Novak and the Resident physician Davis Batista and agree with the findings and care plan. Acute on chronic resp failure sec to worsening pleural effusion - due to non- compliance with medication leading to fluid overload. continue O2, diuresis, home meds. History of COVID-19, possible ongoing postinflammatory/fibrotic changes - possibly contributing to right heart increased pressure. Follow. continue NC O2. Subjective Mr. Saunders is feeling much improved today. While he continues to have orthopnea, he has no dyspnea at rest or on exertion. He does not endorse having a cough. He is tolerating PO intake well. He is ambulating, voiding, and defecating well. Review of Systems 2 Review of Systems: All systems reviewed & are unremarkable except as noted in HPI & below Gastrointestinal: no abdominal pain, no nausea and no vomiting Physical Exam Physical Exam: Patient is resting comfortably on exam and in no acute distress. Constitutional: WD/WN, vitals as above Respiratory: normal respiratory effort; no respiratory distress and no labored breathing Auscultation: lungs clear to auscultation bilaterally Cardiovascular: RRR, no murmur, no edema Gastrointestinal (Abdomen): normal bowel sounds, soft, nontender, no hepatosplenomegaly Skin: no rashes, warm and dry Psychiatric: A+Ox3, euthymic affect Results & Data ([facility]) Vital Signs (Past 12 Hours) Vital Signs Temp Pulse Pulse Resp BP Pulse Ox 01/29/21 15:31 60 01/29/21 15:30 36.4 C L 64 18 123/74 97 01/29/21 13:15 65 137/78 01/29/21 11:47 36.5 C 78 18 130/74 98 01/29/21 07:45 103 H 01/29/21 07:00 36.7 C 82 20 135/80 95 Laboratory Results 01/29/21 01/29/21 01/29/21 Unknown 13:54 13:54 WBC RBC Hgb Hct MCV MCH MCHC RDW Std Deviation RDW Coeff of Timbo Plt Count MPV Immature Gran % (Auto) Neut % (Auto) Lymph % (Auto) Clark % (Auto) Eos % (Auto) Baso % (Auto) Neut # (Auto) Lymph # (Auto) Clark # (Auto) Eos # (Auto) Baso # (Auto) Immature Gran # (Auto) PT INR APTT PTT Ratio VBG pH VBG pCO2 VBG pO2 VBG HCO3 VBG O2 Saturation VBG Base Excess Barometric Pressure Sodium Potassium Chloride Carbon Dioxide Anion Gap BUN Creatinine Est Cr Clr Drug Dosing Est GFR ( Amer) Est GFR (Non-Af Amer) BUN/Creatinine Ratio Glucose Calcium Phosphorus Magnesium Total Bilirubin Direct Bilirubin AST ALT Alkaline Phosphatase Lactate Dehydrogenase 198 Troponin I NT-Pro-B Natriuret Pep Total Protein 7.0 Albumin Globulin Albumin/Globulin Ratio Lipase TSH Pleural Total Protein 3.4 Pleural LDH 91 Pleural Glucose 116 COVID-19 Eval Order SARS-CoV-2 (PCR) 01/29/21 01/29/21 01/28/21 08:00 08:00 Unknown WBC 3.57 L RBC 4.44 L Hgb 11.8 L Hct 37.2 L MCV 83.8 MCH 26.6 MCHC 31.7 L RDW Std Deviation 51.0 H RDW Coeff of Timbo 16.6 H Plt Count 300 MPV 8.6 Immature Gran % (Auto) 0.3 Neut % (Auto) 75.9 Lymph % (Auto) 19.6 Clark % (Auto) 3.9 Eos % (Auto) 0.3 Baso % (Auto) 0.0 Neut # (Auto) 2.71 Lymph # (Auto) 0.70 L Clark # (Auto) 0.14 Eos # (Auto) 0.01 Baso # (Auto) 0.00 Immature Gran # (Auto) 0.01 PT INR APTT PTT Ratio VBG pH VBG pCO2 VBG pO2 VBG HCO3 VBG O2 Saturation VBG Base Excess Barometric Pressure Sodium 141 Potassium 4.1 Chloride 108 H Carbon Dioxide 27 Anion Gap 7.0 BUN 19 H Creatinine 0.77 Est Cr Clr Drug Dosing 97.9 Est GFR ( Amer) 106.6 Est GFR (Non-Af Amer) 91.9 BUN/Creatinine Ratio 25.1 H Glucose 127 H Calcium 8.8 Phosphorus Magnesium Total Bilirubin Direct Bilirubin AST ALT Alkaline Phosphatase Lactate Dehydrogenase Troponin I NT-Pro-B Natriuret Pep Total Protein Albumin Globulin Albumin/Globulin Ratio Lipase TSH 1.250 Pleural Total Protein Pleural LDH Pleural Glucose COVID-19 Eval Order SARS-CoV-2 (PCR) NEGATIVE 01/28/21 01/28/21 01/28/21 Unknown 20:55 19:49 WBC RBC Hgb Hct MCV MCH MCHC RDW Std Deviation RDW Coeff of Timbo Plt Count MPV Immature Gran % (Auto) Neut % (Auto) Lymph % (Auto) Clark % (Auto) Eos % (Auto) Baso % (Auto) Neut # (Auto) Lymph # (Auto) Clark # (Auto) Eos # (Auto) Baso # (Auto) Immature Gran # (Auto) PT INR APTT PTT Ratio VBG pH 7.33 L VBG pCO2 58 H VBG pO2 37 VBG HCO3 30 VBG O2 Saturation 70.1 VBG Base Excess 2.3 Barometric Pressure 734.2 Sodium 139 Potassium 4.1 Chloride 106 Carbon Dioxide 27 Anion Gap 6.0 BUN 22 H Creatinine 0.97 Est Cr Clr Drug Dosing 77.8 Est GFR ( Amer) 91.3 Est GFR (Non-Af Amer) 78.8 BUN/Creatinine Ratio 23.1 H Glucose 79 Calcium 9.0 Phosphorus 4.1 Magnesium 2.2 Total Bilirubin 0.1 L Direct Bilirubin < 0.1 AST 30 ALT 33 Alkaline Phosphatase 106 Lactate Dehydrogenase Troponin I < 0.015 NT-Pro-B Natriuret Pep 234 Total Protein 7.2 Albumin 3.1 L Globulin 4.1 H Albumin/Globulin Ratio 0.8 L Lipase 104 TSH Pleural Total Protein Pleural LDH Pleural Glucose COVID-19 Eval Order Covid19 at [facility] SARS-CoV-2 (PCR) 01/28/21 01/28/21 19:49 19:49 WBC 7.99 RBC 4.50 L Hgb 12.4 L Hct 38.6 L MCV 85.8 MCH 27.6 MCHC 32.1 RDW Std Deviation 53.1 H RDW Coeff of Timbo 16.8 H Plt Count 354 MPV 9.1 Immature Gran % (Auto) 0.3 Neut % (Auto) 59.2 Lymph % (Auto) 24.9 Clark % (Auto) 11.3 Eos % (Auto) 3.8 Baso % (Auto) 0.5 Neut # (Auto) 4.74 Lymph # (Auto) 1.99 Clark # (Auto) 0.90 H Eos # (Auto) 0.30 Baso # (Auto) 0.04 Immature Gran # (Auto) 0.02 PT 10.3 INR 1.0 APTT 30.8 PTT Ratio 1.2 VBG pH VBG pCO2 VBG pO2 VBG HCO3 VBG O2 Saturation VBG Base Excess Barometric Pressure Sodium Potassium Chloride Carbon Dioxide Anion Gap BUN Creatinine Est Cr Clr Drug Dosing Est GFR ( Amer) Est GFR (Non-Af Amer) BUN/Creatinine Ratio Glucose Calcium Phosphorus Magnesium Total Bilirubin Direct Bilirubin AST ALT Alkaline Phosphatase Lactate Dehydrogenase Troponin I NT-Pro-B Natriuret Pep Total Protein Albumin Globulin Albumin/Globulin Ratio Lipase TSH Pleural Total Protein Pleural LDH Pleural Glucose COVID-19 Eval Order SARS-CoV-2 (PCR) Medications Administered Current Inpatient Medications Acetaminophen (Acetaminophen 325 Mg Tab) 650 mg PO Q4H PRN PRN Reason: Pain or Fever Stop: 02/28/21 01:54 Last Admin: 01/29/21 13:17 Dose: 650 mg Documented by: Albuterol (Albuterol Hfa 8 Gm Inhaler) 2 puffs INH Q6H PRN PRN Reason: shortness of breath or wheezing Stop: 02/28/21 01:54 Bupropion HCl (Bupropion Hcl 100 Mg Tablet) 200 mg PO BID [facility] Stop: 02/28/21 01:54 Last Admin: 01/29/21 08:14 Dose: 200 mg Documented by: Fluticasone/Vilanterol (Fluticasone/Vilanterol 100/25mcg 14 Puffs/Inhaler) 1 puffs INH DAILY GUILLERMO Stop: 02/28/21 08:59 Last Admin: 01/29/21 08:14 Dose: 1 puffs Documented by: Furosemide (Furosemide 40 Mg Tab) 40 mg PO DAILY GUILLERMO Stop: 02/28/21 08:59 Last Admin: 01/29/21 08:14 Dose: 40 mg Documented by: Gabapentin (Gabapentin 300 Mg Cap) 600 mg PO TID GUILLERMO Stop: 02/28/21 08:59 Last Admin: 01/29/21 13:16 Dose: 600 mg Documented by: Heparin Sodium (Porcine) (Heparin Sod 5,000 Unit/0.5 Ml Vial) 5,000 units SQ Q12 GUILLERMO Stop: 02/28/21 20:59 Metoprolol Tartrate (Metoprolol Tartrate 25 Mg Tab) 25 mg PO BID [facility] Stop: 02/28/21 01:54 Last Admin: 01/29/21 08:15 Dose: 25 mg Documented by: Ondansetron HCl (Ondansetron Inj 2 Mg/Ml 2 Ml Vial) 4 mg IV Q6H PRN PRN Reason: Nausea Stop: 02/28/21 01:54 Pantoprazole Sodium (Pantoprazole 40 Mg Tab) 40 mg PO QAM [facility] Stop: 02/28/21 08:59 Last Admin: 01/29/21 08:15 Dose: 40 mg Documented by: Tamsulosin HCl (Tamsulosin Hcl 0.4 Mg Cap) 0.4 mg PO QPM GUILLERMO Stop: 02/28/21 20:59 Trazodone HCl (Trazodone Hcl 50 Mg Tab) 150 mg PO HS [facility] Stop: 02/28/21 01:54 Last Admin: 01/29/21 02:28 Dose: 150 mg Documented by: Trimethoprim/Sulfamethoxazole (Sulfamethoxazole/Trimethoprim Ds 800/160mg Tab) 1 tab PO Q12H GUILLERMO Stop: 02/28/21 08:59 Last Admin: 01/29/21 08:15 Dose: 1 tab Documented by:
[2021-01-29] MEDS: HEPARIN SOD 5,000 UNIT/0.5 ML VIAL SQ SCH (20:42)
[2021-01-29] MEDS ORDERED: TAMSULOSIN HCL 0.4 MG CAP PO SCH (21:00)
[2021-01-30 07:16] LABS: Basophils # (auto) 0.02 K/uL (0-0.2); Basophils % (auto) 0.4 %; Eosinophils # (auto) 0.16 K/uL (0-0.5); Eosinophils % (auto) 3.1 %; Hematocrit (blood only) 36.6 % (42-52); Hemoglobin 11.5 g/dL (14.0-18.0); Lymphocytes # (auto) 1.48 K/uL (1.2-3.4); Lymphocytes % (auto) 28.2 %; Mean Corpuscular Hemoglobin 27.1 pg (25-34); Mean Corpuscular Hgb Conc 31.4 g/dL (32-36); Mean Corpuscular Volume 86.1 fL (80-100); Mean Platelet Volume 8.5 fL (7.4-10.4); Monocytes # (auto) 0.61 K/uL (0.11-0.59); Monocytes % (auto) 11.6 %; Neutrophils # (auto) 2.97 K/uL (1.4-6.5); Neutrophils % (auto) 56.7 %; Platelet Count 314 K/uL (130-400); RDW Coefficient of Variation 16.9 % (11.5-14.5); Red Blood Count 4.25 M/uL (4.7-6.1); White Blood Count 5.24 K/uL (4.8-10.8)
[2021-01-30 07:59] LABS: BUN Creatinine Ratio 25.9 (10-20); Calcium 8.6 mg/dl (8.5-10.1); Est GFR (African American) 91.3 ml/min; Est GFR (Non-African American) 78.8 ml/min; Potassium 3.8 mmol/L (3.5-5.1)
[2021-01-30 08:03] LABS: Ferritin 128.4 ng/ml (8-388)
--- NOTE | 2021-01-30 10:06 | XRay Report ---
SINGLE VIEW CHEST CLINICAL HISTORY: Status post left thoracentesis FINDINGS: An AP, portable, upright chest radiograph is compared to study dated 01/29/2021. Correlation is made with chest CT dated 10/05/2020. The examination is degraded by portable technique and patient r otation. The heart is enlarged noting atherosclerotic calcification of the thoracic aorta. Pulmonar y vascular congestion has improved. A left pleural effusion has decreased in size from yesterday. The re is only trace residual left pleural fluid and left basilar atelectasis. A right pleural effusion w ith right basilar consolidation persists. No pneumothorax is seen. The skeletal structures are osteop enic. The bony thorax is grossly intact. A left shoulder arthroplasty is in place. Large calcified merrill int bodies are noted on the left. IMPRESSION: 1. No pneumothorax is identified post procedure. There is only trace residual left pleural fluid. 2. A right pleural effusion with right basilar consolidation is unchanged. 3. Cardiomegaly. Pulmonary vascular congestion has improved from yesterday. ACT 112: Negative or not required by law. Electronically signed by: Shade Guerin M.D. 01/30/2021 10:05 AM
--- NOTE | 2021-01-30 10:19 | Ultrasound Report ---
ULTRASOUND GUIDED LEFT THORACENTESIS CLINICAL HISTORY: left sided symptomatic pleural effusion COMPARISON STUDY: Chest radiograph January 29, 2021. PROCEDURE: The procedure, risks and benefits were discussed with the patient including the risk of pn eumothorax, bleeding and injury to adjacent structures. The patient agreed to the procedure and [facility] written [facility] was obtained. The procedure was performed by Dr. Martinez following a timeout. S onography of the left chest demonstrated a large left pleural effusion. Skin was prepped and draped i n sterile fashion and local anesthesia was achieved with 1% lidocaine. Under direct ultrasound guidan ce, a catheter was injected into the left pleural space. 1800 cc of brownish fluid was aspirated. The catheter was removed. The patient tolerated the procedure well and no immediate complications were e vident. A chest radiograph was ordered following the procedure. IMPRESSION: Successful ultrasound guided left thoracentesis with drainage of 1800 cc of pleural fluid. 1 L of flu id sent to the laboratory for analysis as ordered. ACT 112: Negative or not required by law. Electronically signed by: Kalyan Martinez M.D. 01/30/2021 10:17 AM
[2021-01-30] MEDS: buPROPion HCl 100 MG TABLET PO SCH (10:21)
[2021-01-30] MEDS: GABAPENTIN 300 MG CAP PO SCH ×2 (10:22→15:43)
[2021-01-30] MEDS: FUROSEMIDE 40 MG TAB PO SCH (10:23)
[2021-01-30] MEDS: PANTOprazole 40 MG TAB PO SCH (10:23)
[2021-01-30] MEDS: SULFAMETHOXAZOLE/TRIMETHOPRIM DS 800/160MG TAB PO SCH (10:23)
[2021-01-30] MEDS: METOPROLOL TARTRATE 25 MG TAB PO SCH (10:24)
[2021-01-30] MEDS: FLUTICASONE/VILANTEROL 100/25MCG 14 PUFFS/INHALER INH SCH (10:25)
[2021-01-30] MEDS: HEPARIN SOD 5,000 UNIT/0.5 ML VIAL SQ SCH (10:25)
--- NOTE | 2021-01-30 11:03 | Medical Student Progress Note ---
Date of Service January 30, 2021 Assessment & Plan (1) Shortness of breath: Ms. Saunders is a 70-year-old male with a history of bilateral pleural effusions, chronic hypoxemic respiratory failure, COVID-19, pulmonary hypertension, atrial fibrillation, hyperlipidemia, and GERD who presents with 2- 3 day history of worsening shortness of breath, orthopnea, and dyspnea on exertion. Acute on Chronic Hypoxemic Respiratory Failure, likely secondary to Bilateral Pleural Effusions: - Suspect that patient's SOB is likely multifactorial, but most related to b/l pleural effusions at this time. - Patient had recent thoracentesis 01/16/21 of his L pleural effusion which based on Light's Criteria appeared transudative at that time without microbial growth noted. - Right-sided thoracentesis performed yesterday, 01/29, with 1400 mL of fluid drained, fluid once again appeared to be transudative. Left-sided thoracentesis performed today, 01/30, with 1800 mL of fluid drained. - Post-procedure CXR showed right pleural effusion with right basilar consolidation that was unchanged and decreased pulmonary vascular congestion from the previous day, 01/29. - Continue Lasix 40 mg PO daily. - Continue Breo Ellipta. - Continue Albuterol PRN. Anemia: - Given iron studies, likely to be anemia of chronic disease. - Gaining control of pulmonary disease as above will likely lead to improvement. Paroxysmal AFib: - Continue Metoprolol. - Monitor closely due to hx Mobitz 1 second-degree AV block in the past. - Currently on heparin for VTE prophylaxis. Will need to follow-up with cardiology regarding anticoagulation. Depression: - Continue Wellbutrin. - Continue Trazodone. Hx MRSA Infection L Hip: - Continue suppressive Bactrim therapy. GERD: - Continue Protonix. BPH: - Continue Flomax. Dispo: Med/Surg Telemetry for monitoring FEN: HH diet DVT: Heparin Code: Full Admission and Anticipated Discharge Date Admission Date: January 29, 2021 Supervising Attestation I was present with the medical student throughout the service, interview, and the physical exam. I independently interviewed the patient and performed the physical exam. I reviewed the chart and verified the documentation and I agree with the assessment and plan of Criselda Novak, MS4. Nichole Silva DO [facility] Resident Subjective Mr. Saunders reports doing well today. He states that he does not have any shortness of breath as rest and reports subjective improvement after second tap today. He is ambulating at his baseline, tolerating PO intake well, and does not endorse any difficulty with voiding or defecation. Review of Systems Review of Systems: All systems reviewed & are unremarkable except as noted in HPI & below Cardiovascular: no chest pain, no dyspnea and no edema Gastrointestinal: no abdominal pain, no nausea and no vomiting Neurologic: no headache(s) Physical Exam Physical Exam: Patient is resting comfortably on exam and in no acute distress. Constitutional: WD/WN, vitals as above Eyes: EOM intact bilaterally Respiratory: normal respiratory effort and able to speak in complete sentences; no respiratory distress, no labored breathing, no retractions, does not use accessory muscles, no cough and not tachypneic Cardiovascular: Extremities: no edema Musculoskeletal: Head/Neck/Chest: normocephalic and head atraumatic Extremities: extremities normal to inspection; full ROM of extremities Skin: no rashes, warm and dry Psychiatric: A+Ox3, euthymic affect Orientation: cooperative Results & Data ([facility]) Vital Signs (Past 12 Hours) Vital Signs Temp Pulse Resp BP Pulse Ox 01/30/21 10:18 36.4 C L 68 18 139/72 96 01/30/21 10:13 36.3 C L 67 20 123/73 97 01/30/21 08:00 36.5 C 68 20 129/68 96 01/30/21 04:10 36.4 C L 62 18 129/67 96 01/29/21 23:47 36.7 C 63 18 115/72 93 Laboratory Results 01/30/21 01/30/21 01/29/21 06:56 06:56 Unknown WBC 5.24 RBC 4.25 L Hgb 11.5 L Hct 36.6 L MCV 86.1 MCH 27.1 MCHC 31.4 L RDW Std Deviation 54.0 H RDW Coeff of Timbo 16.9 H Plt Count 314 MPV 8.5 Immature Gran % (Auto) 0.0 Neut % (Auto) 56.7 Lymph % (Auto) 28.2 Kent[place] % (Auto) 11.6 Eos % (Auto) 3.1 Baso % (Auto) 0.4 Neut # (Auto) 2.97 Lymph # (Auto) 1.48 Kenton # (Auto) 0.61 H Eos # (Auto) 0.16 Baso # (Auto) 0.02 Immature Gran # (Auto) 0.00 Sodium 140 Potassium 3.8 Chloride 106 Carbon Dioxide 31 Anion Gap 4.0 BUN 25 H Creatinine 0.97 Est Cr Clr Drug Dosing 76.0 Est GFR ( Amer) 91.3 Est GFR (Non-Af Amer) 78.8 BUN/Creatinine Ratio 25.9 H Glucose 83 Calcium 8.6 Iron 26 L TIBC 221 L Transferrin 170 L Ferritin 128.4 Lactate Dehydrogenase Total Protein Pleural Total Protein 3.4 Pleural LDH 91 Pleural Glucose 116 01/29/21 01/29/21 13:54 13:54 WBC RBC Hgb Hct MCV MCH MCHC RDW Std Deviation RDW Coeff of Timbo Plt Count MPV Immature Gran % (Auto) Neut % (Auto) Lymph % (Auto) Kenton % (Auto) Eos % (Auto) Baso % (Auto) Neut # (Auto) Lymph # (Auto) Kenton # (Auto) Eos # (Auto) Baso # (Auto) Immature Gran # (Auto) Sodium Potassium Chloride Carbon Dioxide Anion Gap BUN Creatinine Est Cr Clr Drug Dosing Est GFR ( Amer) Est GFR (Non-Af Amer) BUN/Creatinine Ratio Glucose Calcium Iron TIBC Transferrin Ferritin Lactate Dehydrogenase 198 Total Protein 7.0 Pleural Total Protein Pleural LDH Pleural Glucose Diagnostic Findings CXR (Post-Procedure, 01/30): 1. No pneumothorax is identified post procedure. There is only trace residual left pleural fluid. 2. A right pleural effusion with right basilar consolidation is unchanged. 3. Cardiomegaly. Pulmonary vascular congestion has improved from yesterday. Medications Administered Current Inpatient Medications Acetaminophen (Acetaminophen 325 Mg Tab) 650 mg PO Q4H PRN PRN Reason: Pain or Fever Stop: 02/28/21 01:54 Last Admin: 01/29/21 13:17 Dose: 650 mg Documented by: Albuterol (Albuterol Hfa 8 Gm Inhaler) 2 puffs INH Q6H PRN PRN Reason: shortness of breath or wheezing Stop: 02/28/21 01:54 Bupropion HCl (Bupropion Hcl 100 Mg Tablet) 200 mg PO BID [facility] Stop: 02/28/21 01:54 Last Admin: 01/30/21 10:21 Dose: 200 mg Documented by: Fluticasone/Vilanterol (Fluticasone/Vilanterol 100/25mcg 14 Puffs/Inhaler) 1 puffs INH DAILY [facility]LLERMO Stop: 02/28/21 08:59 Last Admin: 01/30/21 10:25 Dose: 1 puffs Documented by: Furosemide (Furosemide 40 Mg Tab) 40 mg PO DAILY [facility]LL[facility] Stop: 02/28/21 08:59 Last Admin: 01/30/21 10:23 Dose: 40 mg Documented by: Gabapentin (Gabapentin 300 Mg Cap) 600 mg PO TID [facility] Stop: 02/28/21 08:59 Last Admin: 01/30/21 10:22 Dose: 600 mg Documented by: Heparin Sodium (Porcine) (Heparin Sod 5,000 Unit/0.5 Ml Vial) 5,000 units SQ Q12 [facility]LLERMO Stop: 02/28/21 20:59 Last Admin: 01/30/21 10:25 Dose: 5,000 units Documented by: Metoprolol Tartrate (Metoprolol Tartrate 25 Mg Tab) 25 mg PO BID [facility] Stop: 02/28/21 01:54 Last Admin: 01/30/21 10:24 Dose: 25 mg Documented by: Ondansetron HCl (Ondansetron Inj 2 Mg/Ml 2 Ml Vial) 4 mg IV Q6H PRN PRN Reason: Nausea Stop: 02/28/21 01:54 Pantoprazole Sodium (Pantoprazole 40 Mg Tab) 40 mg PO QAM [facility]LLERMO Stop: 02/28/21 08:59 Last Admin: 01/30/21 10:23 Dose: 40 mg Documented by: Tamsulosin HCl (Tamsulosin Hcl 0.4 Mg Cap) 0.4 mg PO QPM [facility]LLERMO Stop: 02/28/21 20:59 Last Admin: 01/29/21 20:43 Dose: 0.4 mg Documented by: Trazodone HCl (Trazodone Hcl 50 Mg Tab) 150 mg PO HS [facility] Stop: 02/28/21 01:54 Last Admin: 01/29/21 20:43 Dose: 150 mg Documented by: Trimethoprim/Sulfamethoxazole (Sulfamethoxazole/Trimethoprim Ds 800/160mg Tab) 1 tab PO Q12H [facility]LLERMO Stop: 02/28/21 08:59 Last Admin: 01/30/21 10:23 Dose: 1 tab Documented by: Resident Activity Tracking Resident Involvement: Resident Care Provided Care Provided: Adult Hospital Medicine
--- NOTE | 2021-01-30 15:13 | Pulmonology Progress Note ---
Date of Service January 30, 2021 Assessment & Plan (1) Bilateral pleural effusion: 70-year-old male with a past medical history of atrial fibrillation and pulmonary hypertension presenting to the hospital due to shortness of breath and bilateral effusions. Bilateral pleural effusions: Etiology is unclear at this time, but I do suspect a component of cardiac disease. Echocardiogram 01/29/2021 demonstrates an LVEF of 65 to 70%. Grade 1 diastolic dysfunction was seen. Pulmonary hypertension is suspected, but there were inadequate Doppler signals to estimate right ventricular systolic pressure. I wonder if there is a component of constrictive/restrictive pericarditis. I have ordered labs to evaluate for make significant tissue disorder. I have consulted cardiology for their input with regards to a potential right heart catheterization and/or cardiac MRI. Pleural fluid cytology has been generally unremarkable. Pleural fluid was sent for triglycerides to evaluate for chylothorax. Pulmonary hypertension: I think he warrants a further work-up with a right heart catheterization. Continue Lasix therapy. Chronic hypoxemic respiratory failure: Secondary to underlying cardiac disease and bilateral pleural effusions. He needs outpatient PFTs to be completed. Patient is stable for discharge today with outpatient pulmonary and cardiology follow-up. (2) Shortness of breath: (3) Acute respiratory failure with hypoxia: (4) Paroxysmal atrial fibrillation: (5) Pulmonary hypertension: Admission and Anticipated Discharge Date Admission Date: January 29, 2021 Subjective Patient reports that his breathing is much better today. He denies any chest pain. He underwent a thoracentesis by radiology. He denies any fevers, chills or night sweats. He is eager to go home. Review of Systems Review of Systems: All systems reviewed & are unremarkable except as noted in HPI & below Physical Exam Constitutional: + frail appearing Eyes: PERRL, conjunctivae normal, anicteric sclerae Respiratory: Diminished lung sounds bilaterally. No crackles. Cardiovascular: RRR, no murmur, no edema Gastrointestinal (Abdomen): normal bowel sounds, soft, nontender, no hepatosplenomegaly Musculoskeletal: no cyanosis or clubbing, extremities motor strength 5/5 Neurologic: PERRL, EOMI, accommodation nl, no face palsy, no dysarthria Psychiatric: A+Ox3, euthymic affect Results & Data Results & Data ([facility]) Vital Signs (Past 12 Hours) Vital Signs Temp Pulse Resp BP Pulse Ox 01/30/21 14:54 97.7 F 67 18 115/72 100 01/30/21 10:18 97.5 F L 68 18 139/72 96 01/30/21 10:13 97.3 F L 67 20 123/73 97 01/30/21 08:00 97.7 F 68 20 129/68 96 01/30/21 04:10 97.5 F L 62 18 129/67 96 Vital signs, labs and imaging reviewed PG Care Time/CCT Total # of Minutes Spent Total Time Spent with Patient: Total time spent is greater than 50% in coordination of care (as documented) at patient's floor/unit and/or counseling patient: Coding Level of Care Code 16251 Subseq Hosp Care Lvl 2 Diagnoses Bilateral pleural effusion J90 Shortness of breath R06.02 Acute respiratory failure with hypoxia J96.01 Paroxysmal atrial fibrillation I48.0 Pulmonary hypertension I27.20
--- NOTE | 2021-01-30 15:22 | Cardiology Consultation ---
Date of Consultation January 30, 2021 Assessment & Plan (1) Recurrent left pleural effusion: Mr. Saunders is a 70 year old male with a history of Paroxysmal Atrial Fibrillation, 1st Degree AV Block, GERD, Esophageal Varices, Anemia, Severe Pulmonary Hypertension, Chronic Respiratory Failure, Hypoxia, Osteoarthritis, and recent SARS-CoV-2 Infection who was admitted on 01/29/21 with Worsening SOB, Orthopnea, and COOLEY secondary to Recurrent Bilateral Pleural Effusions/Pulmonary Edema which began after his recent coronavirus infection. He has had several thoracenteses to drain his bilateral pleural effusions -- and analysis suggests transudative fluid. Patient is being followed closely by Pulmonology. Dr. Calloway consulted [facility] for our input regarding a potential right heart catheterization and/or cardiac MRI. Past Echocardiograms have suggested severe pulmonary hypertension. Patient underwent a repeat Echocardiogram 01/29/2021 but unfortunately there were inadequate Doppler signals to estimate right ventricular systolic pressure. The Echocardiogram did demonstrate Normal LV Systolic Function with an LVEF of 65% to 70% with grade 1 diastolic dysfunction. We question whether or not there is a component of constrictive/restrictive pericarditis. Dr. Calloway has already ordered labs to evaluate for any significant tissue disorder. Patient is feeling quite well at this time, and is much less SOB since having his pleural effusions drained and he is taking Lasix. He is being discharged today. Therefore, we will follow-up with this patient and perform an outpatient Right Heart Cath in the near future. Patient agrees with this plan. Stable for discharge to home from a cardiac standpoint. (2) Recurrent pleural effusion on right: (3) Pulmonary hypertension: (4) Chronic respiratory failure: (5) Paroxysmal atrial fibrillation: (6) History of COVID-19: Supervising Physician Co-Signing Physician Notes ADDENDUM (Dr. Zambrano): Patient seen and examined. Agree with plan as outlined above by Mr. Alma TALBERT. Etiology of his recurrent pleural effusions is uncertain, he does not appear to have conventional systolic or diastolic left heart failure or evidence of cor pulmonale/right heart failure. He has no history of edema, his neck veins are unremarkable, his proBNP was normal, his central venous pressure did not appear significantly elevated on echo, but he does require daily furosemide to combat his recurrent effusions. Doubt amyloid, reviewed his echocardiogram once again in his right and left atria are normal size (usually markedly dilated with amyloid). Although his pulmonary hypertension may be due to underlying lung disease (hyperaeration on chest x-ray, smoking history), agree that work-up of this is appropriate. Will arrange for right heart catheterization as an outpatient to evaluate right and left heart pressures. History of Present Illness Reason for Consultation: -- Severe Pulmonary Hypertension. -- Recurrent Bilateral Pleural Effusions. -- Concern for Constrictive vs. Restrictive Pericardial Disease. Requesting Physician: Mark Anthony Calloway MD Attending Physician: Jaret Zambrano MD History of Present Illness Mr. Saunders is a 70 year old male with a history of Paroxysmal Atrial Fibrillation, 1st Degree AV Block, GERD, Esophageal Varices, Anemia, Severe Pulmonary Hypertension, Chronic Respiratory Failure, Hypoxia, Osteoarthritis, and recent SARS-CoV-2 Infection who was admitted on 01/29/21 with Worsening SOB, Orthopnea, and COOLEY secondary to Bilateral Pleural Effusions. Apparently these recurrent pleural effusions began after his coronavirus infection. He has had several thoracenteses to drain his bilateral pleural effusions -- and analysis suggests transudative fluid. Patient is being followed closely by Pulmonology. As per Pulmonology -- Etiology is unclear at this time, but Dr. Calloway suspects a component of cardiac disease. Echocardiogram 01/29/2021 demonstrates an LVEF of 65% to 70% with grade 1 diastolic dysfunction. Pulmonary hypertension is suspected, but there were inadequate Doppler signals to estimate right ventricular systolic pressure. Dr. Calloway wonders if there is a component of constrictive/restrictive pericarditis and he has ordered labs to evaluate for any significant tissue disorder. Dr. Calloway consulted [facility] Card[facility] for their input with regards to a potential right heart catheterization and/or cardiac MRI. Patient is feeling quite well at this time, and is much less SOB since having his pleural effusions drained. He denies any chest pain, heaviness, tightness, or pressure. No neck, jaw, back, or arm pain. Breathing is very close to baseline. Currently lying supine in his bed without orthopnea. He denies any palpitations or recurrent A-Fib to his knowledge. Allergies Allergy/AdvReac Type Severity Reaction Status Date / Time No Known Allergies Allergy Unknown Verified 01/28/21 21:22 Home Medications Medication Instructions Recorded Confirmed Type alendronate 70 mg PO WK 01/10/19 01/28/21 History ascorbic acid (vitamin C) [Vitamin 500 mg PO QAM 01/10/19 01/28/21 History C] bupropion HCl 200 mg PO BID 01/10/19 01/28/21 History saw palmetto 1,000 mg PO QAM 01/10/19 01/28/21 History sulfamethoxazole-trimethoprim 1 tab PO Q12H 01/10/19 01/28/21 History [Bactrim DS] tamsulosin [Flomax] 0.4 mg PO QPM 01/10/19 01/28/21 History chlorzoxazone 500 mg tablet 750 mg PO Q6H PRN 08/08/19 01/28/21 History HEEL LIFTS #1 ea 04/24/20 01/15/21 Rx pantoprazole 40 mg PO QAM 08/01/20 01/28/21 History multivitamin 1 tab PO QAM 10/05/20 01/28/21 History omega 1-mbr-sow-fish oil [Fish Oil] 1 cap PO QAM 10/05/20 01/28/21 History trazodone 150 mg PO HS 10/05/20 01/28/21 History acetaminophen 325 mg capsule 650 mg PO DAILY PRN cap 10/16/20 01/28/21 History aspirin 81 mg tablet,delayed 81 mg PO DAILY 10/16/20 01/28/21 History release cholecalciferol (vitamin D3) 50 50 mcg PO DAILY 10/16/20 01/28/21 History mcg (2,000 unit) capsule lidocaine 5 % topical patch 1 patch TOPICAL DAILY PRN 10/16/20 01/28/21 History bgapsrg-kcynbqelb-zjic 333 mg-133 1 tab PO DAILY 11/06/20 01/28/21 History mg-5 mg tablet celecoxib 100 mg capsule 100 mg PO BID #60 cap 12/08/20 01/28/21 Rx gabapentin 300 mg capsule 600 mg PO TID #120 cap 12/15/20 01/28/21 Rx Oxygen Home #1 ea 12/24/20 01/15/21 Rx albuterol sulfate 90 mcg/actuation 2 puff INHALATION Q6H PRN #8.5 g 12/24/20 01/28/21 Rx aerosol inhaler fluticasone furoate 100 1 inh INHALATION DAILY #28 ea 12/30/20 01/28/21 Rx mcg-vilanterol 25 mcg/dose inhalation powder furosemide 40 mg tablet 40 mg PO DAILY #30 tab 01/15/21 01/28/21 Rx glucosamine-chondroitin 250 mg-200 2 tab PO TID 01/15/21 01/28/21 History mg tablet ferrous sulfate 65 mg PO DAILY 01/16/21 01/28/21 History metoprolol tartrate 25 mg PO BID 01/16/21 01/28/21 History terbinafine HCl 250 mg PO DAILY 01/16/21 01/28/21 History Patient History Medical History Anxiety Ascites At risk for pill esophagitis Atrial flutter, paroxysmal Bilateral pleural effusion Bilateral pleural effusion CAP (community acquired pneumonia) Cataract Chronic back pain Chronic osteomyelitis Degeneration of cervical intervertebral disc Depression Exposure to COVID-19 virus Former smoker GERD (gastroesophageal reflux disease) Glaucoma Hearing deficit hearing aid (left) Hyperlipidemia Leg length discrepancy RLE > LLE s/p multiple left hip revisions (per patient, missing hip joint) due to complications from hip surgery/revisions/MRSA infection- on chronic preventative Bactrim-- uses shoe with elevated heel/crutches Osteoarthritis Osteoporosis Peptic ulcer disease 12/2018 Pleural effusion Pneumonia Pneumonia due to 2019 novel coronavirus Pulmonary hypertension Restless leg syndrome Shortness of breath Shortness of breath Transient ischemic attack (TIA) x1 (~2014) Surgical History H/O eye surgery 2 DRAINAGE TUBES RT/LEFT EYE FOR GLAUCOMA currently in place History of bilateral cataract extraction History of colonoscopy History of esophagogastroduodenoscopy (EGD) History of hip surgery LEFT HIP SURGERY/REVISIONS (TOTAL OF 9 SURGERIES) History of laminectomy L3-L5 laminectomy: 05/12/15: Grade view 1, MAC#3, ETT 8.0 (atraumatic DL x 1) at [facility] History of tonsillectomy and adenoidectomy History of tooth extraction Status post reverse total arthroplasty of left shoulder Family History Cerebral aneurysm Father Denies family history of Ovarian cancer Prostate cancer Myocardial infarction Breast cancer Colorectal cancer Social History Smoking Status: Former smoker Tobacco Type: Smokeless Tobacco (Dip or Chew) Second Hand Exposure: No; Do You Dip or Chew Tobacco: No; Hx Alcohol Use: No Hx Substance Use: No Preferred Language: Indonesian Communication Ability: Effective Visual Impairment: No Limitations Hearing Ability: Normal Chainstitch Hemmer Required: No Beliefs That Will Affect Care: None marital status: Current Living Situation: Spouse current occupational status: retired Other Information That Helps Us Care for You: No Feels Safe at Home: Yes Safety Concerns: Feels Safe At This Time caffeine: Yes Dental Care, Regularly: No Physical Activity Frequency: 1-2 Times per Week Physical Activity Frequency Comment: Rehab twice a week Seatbelt Use: always Sunscreen Use: No Assistive Devices: Crutches and Oxygen - Continuous Review of Systems Review of Systems: All systems reviewed & are unremarkable except as noted in Subjective Physical Exam Physical Exam: GENERAL: Patient in no acute distress. HEENT: Head is atraumatic, normocephalic. EOM's intact. Facies symmetric. No perioral cyanosis. NECK: No JVD. JVP is just above the clavicle sitting upright. Carotid upstrokes are + 2 bilaterally. No bruits are noted. CHEST/LUNGS: Diminished breath sounds bilaterally but otherwise clear. No wheezes, rales, or crackles. CVS: S1 and S2 are regular without obvious murmurs, gallops, or rubs. PMI is nondisplaced. No lifts, heaves, or thrills. No abdominal aortic or renal bruits. ABDOMINAL EXAM: Bowel sounds are present. No masses, organomegaly, or tenderness. EXTREMITIES: No clubbing or cyanosis. No significant edema. Intact radial pulses bilaterally. NEUROLOGIC EXAM: Patient is awake, alert, and oriented. Pleasant and cooperative. Answers questions appropriately. Speech is clear. Normal movement in all 4 extremities. Gait pattern was not assessed. TELEMETRY: -- NSR in the 60 to 80 bpm range. Results & Data ([facility]) Vital Signs (Past 12 Hours) Vital Signs Temp Pulse Resp BP Pulse Ox 01/30/21 14:54 36.5 C 67 18 115/72 100 01/30/21 10:18 36.4 C L 68 18 139/72 96 01/30/21 10:13 36.3 C L 67 20 123/73 97 01/30/21 08:00 36.5 C 68 20 129/68 96 01/30/21 04:10 36.4 C L 62 18 129/67 96 Laboratory Results Laboratory Results - last 24 hr 01/29/21 01/30/21 01/30/21 Unknown 06:56 06:56 WBC RBC Hgb Hct MCV MCH MCHC RDW Std Deviation RDW Coeff of Timbo Plt Count MPV Immature Gran % (Auto) Neut % (Auto) Lymph % (Auto) Wise % (Auto) Eos % (Auto) Baso % (Auto) Neut # (Auto) Lymph # (Auto) Wise # (Auto) Eos # (Auto) Baso # (Auto) Immature Gran # (Auto) Sodium 140 Potassium 3.8 Chloride 106 Carbon Dioxide 31 Anion Gap 4.0 BUN 25 H Creatinine 0.97 Est Cr Clr Drug Dosing 76.0 Est GFR ( Amer) 91.3 Est GFR (Non-Af Amer) 78.8 BUN/Creatinine Ratio 25.9 H Glucose 83 Calcium 8.6 Iron 26 L TIBC 221 L Transferrin 170 L Ferritin 128.4 Pleural Triglycerides 14 LINDA Screen Pending SS-A/Ro Antibody Pending SS-B/La Antibody Pending Sm (Blanco) Antibody Pending STRIP FEEDER Antibody Pending Scl-70 Scleroderma Ab Pending Anti-ds DNA (Crithidia) Pending Chromatin Antibody Pending Anti-Centromere Ab Pending Thyroid Antimicrosomal Pending Anti-Cardiolipin IgG Ab Pending Anti-Cardiolipin IgA Ab Pending Anti-Cardiolipin IgM Ab Pending Complement C3 Pending Complement C4 Pending 01/30/21 06:56 WBC 5.24 RBC 4.25 L Hgb 11.5 L Hct 36.6 L MCV 86.1 MCH 27.1 MCHC 31.4 L RDW Std Deviation 54.0 H RDW Coeff of Timbo 16.9 H Plt Count 314 MPV 8.5 Immature Gran % (Auto) 0.0 Neut % (Auto) 56.7 Lymph % (Auto) 28.2 Wise % (Auto) 11.6 Eos % (Auto) 3.1 Baso % (Auto) 0.4 Neut # (Auto) 2.97 Lymph # (Auto) 1.48 Wise # (Auto) 0.61 H Eos # (Auto) 0.16 Baso # (Auto) 0.02 Immature Gran # (Auto) 0.00 Sodium Potassium Chloride Carbon Dioxide Anion Gap BUN Creatinine Est Cr Clr Drug Dosing Est GFR ( Amer) Est GFR (Non-Af Amer) BUN/Creatinine Ratio Glucose Calcium Iron TIBC Transferrin Ferritin Pleural Triglycerides LINDA Screen SS-A/Ro Antibody SS-B/La Antibody Sm (Blanco) Antibody STRIP FEEDER Antibody Scl-70 Scleroderma Ab Anti-ds DNA (Crithidia) Chromatin Antibody Anti-Centromere Ab Thyroid Antimicrosomal Anti-Cardiolipin IgG Ab Anti-Cardiolipin IgA Ab Anti-Cardiolipin IgM Ab Complement C3 Complement C4 Diagnostic Findings CXR 01/30/21: An AP, portable, upright chest radiograph is compared to study dated 01/29/2021. Correlation is made with chest CT dated 10/05/2020. The examination is degraded by portable technique and patient rotation. The heart is enlarged noting atherosclerotic calcification of the thoracic aorta. Pulmonary vascular congestion has improved. A left pleural effusion has decreased in size from yesterday. There is only trace residual left pleural fluid and left basilar atelectasis. A right pleural effusion with right basilar consolidation persists. No pneumothorax is seen. The skeletal structures are osteopenic. The bony thorax is grossly intact. A left shoulder arthroplasty is in place. Large calcified joint bodies are noted on the left. IMPRESSION: 1. No pneumothorax is identified post procedure. There is only trace residual left pleural fluid. 2. A right pleural effusion with right basilar consolidation is unchanged. 3. Cardiomegaly. Pulmonary vascular congestion has improved from yesterday. Medications Administered Medications alendronate 70 mg PO WK 01/10/19 [History Confirmed 01/28/21] ascorbic acid (vitamin C) [Vitamin C] 500 mg PO QAM 01/10/19 [History Confirmed 01/28/21] bupropion HCl 200 mg PO BID 01/10/19 [History Confirmed 01/28/21] saw palmetto 1,000 mg PO QAM 01/10/19 [History Confirmed 01/28/21] sulfamethoxazole-trimethoprim [Bactrim DS] 1 tab PO Q12H 01/10/19 [History Confirmed 01/28/21] tamsulosin [Flomax] 0.4 mg PO QPM 01/10/19 [History Confirmed 01/28/21] chlorzoxazone 500 mg tablet 750 mg PO Q6H PRN 08/08/19 [History Confirmed 01/28/21] HEEL LIFTS #1 ea 04/24/20 [Rx Confirmed 01/15/21] pantoprazole 40 mg PO QAM 08/01/20 [History Confirmed 01/28/21] multivitamin 1 tab PO QAM 10/05/20 [History Confirmed 01/28/21] omega 3-hcg-koo-fish oil [Fish Oil] 1 cap PO QAM 10/05/20 [History Confirmed 01/28/21] trazodone 150 mg PO HS 10/05/20 [History Confirmed 01/28/21] acetaminophen 325 mg capsule 650 mg PO DAILY PRN cap 10/16/20 [History Confirm ed 01/28/21] aspirin 81 mg tablet,delayed release 81 mg PO DAILY 10/16/20 [History Confirmed 01/28/21] cholecalciferol (vitamin D3) 50 mcg (2,000 unit) capsule 50 mcg PO DAILY 10/16/20 [History Confirmed 01/28/21] lidocaine 5 % topical patch 1 patch TOPICAL DAILY PRN 10/16/20 [History Confirmed 01/28/21] xqepubq-scbohxkxu-whzm 333 mg-133 mg-5 mg tablet 1 tab PO DAILY 11/06/20 [History Confirmed 01/28/21] celecoxib 100 mg capsule 100 mg PO BID #60 cap 12/08/20 [Rx Confirmed 01/28/21] gabapentin 300 mg capsule 600 mg PO TID #120 cap 12/15/20 [Rx Confirmed 01/28/21] Oxygen Home #1 ea 12/24/20 [Rx Confirmed 01/15/21] albuterol sulfate 90 mcg/actuation aerosol inhaler 2 puff INHALATION Q6H PRN #8.5 g 12/24/20 [Rx Confirmed 01/28/21] fluticasone furoate 100 mcg-vilanterol 25 mcg/dose inhalation powder 1 inh INHALATION DAILY #28 ea 12/30/20 [Rx Confirmed 01/28/21] furosemide 40 mg tablet 40 mg PO DAILY #30 tab 01/15/21 [Rx Confirmed 01/28/21] glucosamine-chondroitin 250 mg-200 mg tablet 2 tab PO TID 01/15/21 [History Confirmed 01/28/21] ferrous sulfate 65 mg PO DAILY 01/16/21 [History Confirmed 01/28/21] metoprolol tartrate 25 mg PO BID 01/16/21 [History Confirmed 01/28/21] terbinafine HCl 250 mg PO DAILY 01/16/21 [History Confirmed 01/28/21] Home Medications Acetaminophen (Acetaminophen 325 Mg Tab) 650 mg PO Q4H PRN PRN Reason: Pain or Fever Stop: 02/28/21 01:54 Last Admin: 01/29/21 13:17 Dose: 650 mg Documented by: Albuterol (Albuterol Hfa 8 Gm Inhaler) 2 puffs INH Q6H PRN PRN Reason: shortness of breath or wheezing Stop: 02/28/21 01:54 Bupropion HCl (Bupropion Hcl 100 Mg Tablet) 200 mg PO BID [facility] Stop: 02/28/21 01:54 Last Admin: 01/30/21 10:21 Dose: 200 mg Documented by: Fluticasone/Vilanterol (Fluticasone/Vilanterol 100/25mcg 14 Puffs/Inhaler) 1 puffs INH DAILY GUILLERMO Stop: 02/28/21 08:59 Last Admin: 01/30/21 10:25 Dose: 1 puffs Documented by: Furosemide (Furosemide 40 Mg Tab) 40 mg PO DAILY GUILLERMO Stop: 02/28/21 08:59 Last Admin: 01/30/21 10:23 Dose: 40 mg Documented by: Gabapentin (Gabapentin 300 Mg Cap) 600 mg PO TID [facility] Stop: 02/28/21 08:59 Last Admin: 01/30/21 15:43 Dose: 600 mg Documented by: Heparin Sodium (Porcine) (Heparin Sod 5,000 Unit/0.5 Ml Vial) 5,000 units SQ Q12 GUILLERMO Stop: 02/28/21 20:59 Last Admin: 01/30/21 10:25 Dose: 5,000 units Documented by: Metoprolol Tartrate (Metoprolol Tartrate 25 Mg Tab) 25 mg PO BID [facility] Stop: 02/28/21 01:54 Last Admin: 01/30/21 10:24 Dose: 25 mg Documented by: Ondansetron HCl (Ondansetron Inj 2 Mg/Ml 2 Ml Vial) 4 mg IV Q6H PRN PRN Reason: Nausea Stop: 02/28/21 01:54 Pantoprazole Sodium (Pantoprazole 40 Mg Tab) 40 mg PO QAM GUILLERMO Stop: 02/28/21 08:59 Last Admin: 01/30/21 10:23 Dose: 40 mg Documented by: Tamsulosin HCl (Tamsulosin Hcl 0.4 Mg Cap) 0.4 mg PO QPM GUILLERMO Stop: 02/28/21 20:59 Last Admin: 01/29/21 20:43 Dose: 0.4 mg Documented by: Trazodone HCl (Trazodone Hcl 50 Mg Tab) 150 mg PO HS GUILLERMO Stop: 02/28/21 01:54 Last Admin: 01/29/21 20:43 Dose: 150 mg Documented by: Trimethoprim/Sulfamethoxazole (Sulfamethoxazole/Trimethoprim Ds 800/160mg Tab) 1 tab PO Q12H GUILLERMO Stop: 02/28/21 08:59 Last Admin: 01/30/21 10:23 Dose: 1 tab Documented by: PG Care Time/CCT Total # of Minutes Spent Total Time Spent with Patient: Total time spent is greater than 50% in coordination of care (as documented) at patient's floor/unit and/or counseling patient: Coding Level of Care Code 53409 Inpt Consult Level 4 Diagnoses Recurrent left pleural effusion J90 Recurrent pleural effusion on right J90 Pulmonary hypertension I27.20 Chronic respiratory failure J96.10 Paroxysmal atrial fibrillation I48.0 History of COVID-19 Z86.16
--- NOTE | 2021-01-30 18:05 | Discharge Summary ---
Date of Service January 30, 2021 Admission HPI Per Admitting Provider Patient is a 70 year old male with PMHx Bilateral Pleural effusions, Chronic Hypoxemic respiratory failure, COVID-19 illness, Pulmonary hypertension, Atrial fibrillation, HLD, GERD, who presents with 2-3 day history of worsening shortness of breath, orthopnea, and dyspnea on exertion. Patient notes that he was recently seen by his silo worker Dr. Calloway and had over 2L of fluid removed from his L lung and that since then he over all had been feeling better in regards to his shortness of breath. He states that the past few days he has noticed worsening of his breathing again in addition to a dry cough and chest pressure when having his SOB. He notes that he typically uses 2L NC of O2 daily, but had increased it to 3.5L, most recently discontinuing it at home because he felt that he was doing better prior to feeling worse again the past 2 days. Per discussion with the ED provider, they note that the patient's had called in to notify that the patient has not been fully compliant with medications and has not been taking all of them. The patient himself notes he has been compliant with medications and is unsure of the cause of his sudden worsening. He denies any fever, chills, chest pain, abdominal pain, nausea, vomiting, diarrhea, headache. Med Hx: Bilateral Pleural effusions, Chronic Hypoxemic respiratory failure, COVID-19 illness, Pulmonary hypertension, Atrial fibrillation, HLD, GERD Surg Hx: B/L Cataract, L hip surgery x9, L3-L5 Laminectomy Soc Hx: 60 pack year, quit around 1999. Quit alcohol use 2009. Marijuana use. Admission Exam Per Admitting Provider Constitutional: cooperative; no acute distress Eyes: PERRL, conjunctivae normal, anicteric sclerae ENMT: external ear and nose normal, oropharynx normal Neck: trachea midline, no thyromegaly Respiratory: normal respiratory effort; no respiratory distress and no labored breathing Auscultation: + diminished lung sounds (worse in RML, RLL, LLL); no wheezes Cardiovascular: Rate/Rhythm: regular rate and regular rhythm Heart Sounds: no murmur Extremities: no calf tenderness and no edema Gastrointestinal (Abdomen): normal bowel sounds, soft, nontender, no hepatosplenomegaly Musculoskeletal: Short L leg No erythema noted overlying prior incision sites of the LLE/L hip Skin: no rashes, warm and dry Neurologic: PERRL, EOMI, accommodation nl, no face palsy, no dysarthria Psychiatric: A+Ox3, euthymic affect Principal Diagnosis bilateral pleural effusions Discharge Exam Physical Exam: Patient is resting comfortably on exam and in no acute distress. Constitutional: WD/WN, vitals as above Eyes: EOM intact bilaterally Respiratory: normal respiratory effort and able to speak in complete sentences; no respiratory distress, no labored breathing, no retractions, does not use accessory muscles, no cough and not tachypneic Cardiovascular: Extremities: no edema Musculoskeletal: Head/Neck/Chest: normocephalic and head atraumatic Extremities: extremities normal to inspection; full ROM of extremities Skin: no rashes, warm and dry Psychiatric: A+Ox3, euthymic affect Orientation: cooperative Discharge Data Allergies Allergy/AdvReac Type Severity Reaction Status Date / Time No Known Allergies Allergy Unknown Verified 01/28/21 21:22 Consultations 01/28/21 22:53 ED Decision to Admit Stat 01/29/21 01:55 Consult Pulmonology Routine 01/30/21 13:33 Consult Cardiology Routine Ordered Studies 01/29/21 11:41 US point of care ultrasound Urgent 01/30/21 09:00 US thoracentesis Routine Hospital Course (1) Acute on chronic respiratory failure with hypoxemia: Mr. Saunders is a 70-year-old male with a history of bilateral pleural effusions, chronic hypoxemic respiratory failure, COVID-19, pulmonary hypertension, atrial fibrillation, hyperlipidemia, and GERD who presents with 2- 3 day history of worsening shortness of breath, orthopnea, and dyspnea on exertion. Acute on Chronic Hypoxemic Respiratory Failure, likely secondary to Bilateral Pleural Effusions: - Suspect that patient's SOB is likely multifactorial, but most related to b/l pleural effusions at this time. - Patient had recent thoracentesis 01/16/21 of his L pleural effusion which based on Light's Criteria appeared transudative at that time without microbial growth noted. - Pulmonology consulted during hospitalization. Appreciate their assistance and recommendations. - Right-sided thoracentesis performed yesterday, 01/29, with 1400 mL of fluid drained, fluid once again appeared to be transudative. - Left-sided thoracentesis performed today, 01/30, by radiology with 1800 mL of fluid drained. - Post-procedure CXR: right pleural effusion with right basilar consolidation that was unchanged and decreased pulmonary vascular congestion from the previous day, 01/29. - Continue Lasix 40 mg PO daily. Discussed importance of medication compliance with patient. Recommended that patient weight self daily and call PCP if weight increases 3-5 lbs as he may need additional lasix dosing. - Further pulmonology recommendations: - Etiology of b/l pleural effusions unclear but suspect a component of cardiac disease (? component of constrictive/restrictive pericarditis) - Labs ordered to evaluate for significant tissue disorder, pending - Pleural fluid cytology generally unremarkable - Pulmonary HTN -- ? further work up with cardiology via right heart cath. Continue lasix therapy (as noted above) - Recommend outpatient PFTs - Continue Breo Ellipta and Albuterol PRN. - continue home O2 at 2L Anemia: - Given iron studies, likely to be anemia of chronic disease. - Gaining control of pulmonary disease as above will likely lead to improvement. - Recommend repeat studies with PCP Paroxysmal AFib: - Continue Metoprolol. - Monitor closely due to hx Mobitz 1 second-degree AV block in the past. - Recommend follow-up with cardiology regarding anticoagulation Depression: - Continue Wellbutrin and Trazodone. Hx MRSA Infection L Hip: - Continue suppressive Bactrim therapy. GERD: - Continue Protonix. BPH: - Continue Flomax. Dispo: Home FEN: Heart healthy diet Code: Full (2) Shortness of breath: (3) Bilateral pleural effusion: (4) Anemia: (5) Paroxysmal atrial fibrillation: (6) GERD (gastroesophageal reflux disease): Total Time Total Time Spent Total Time Spent (In Minutes): See attending attestation Discharge Plan Discharge Items Patient Disposition: Home - Self-Care Reason For Visit: SOB, PLEURAL EFFUSION Discharge Diagnosis: Pleural effusion Condition on Discharge: Good Activity: Resume your previous activity Non-emergency contact: Primary Care Provider Call non-emergency contact if: you have any medication questions Follow-up/Referrals: Rayo Jordan DO [Primary Care Provider] - 02/10/21 8:30 am Diet: Heart Healthy Addtl Attending Provider Instructions: You were admitted due to worsening shortness of breath associated with pleural effusions (fluid collections) in both lungs. You had procedures performed by both pulmonology and radiology to remove that fluid. You are also on a medication, furosemide (lasix) to help eliminate fluid. It is very important that you take the furosemide as prescribed. Weight yourself daily, if you gain more than 3-5 pounds, call your primary care provider (they may want you to take an extra dose of your furosemide). You should follow up with your primary care physician early next week. Follow up with your silo worker as scheduled. Follow up with cardiology as scheduled for discussion of outpatient right heart catheterization. Please call 911 or return to the emergency department for worsening shortness of breath, chest pain, or swelling in your legs. Pending Studies at Discharge: Yes Stand-Alone Forms: My [facility] [employer], Smoking Cessation Medications and DC Order Prescriptions: Continued celecoxib [Celebrex] 100 mg capsule 100 mg PO BID Qty: 60 RF: 2 (DME) HEEL LIFTS Misc See Rx Instructions .ROUTE .MEDSUPPLY Qty: 1 RF: 0 Breo Ellipta 100-25 mcg/dose blister with device 1 inh inhalation DAILY Qty: 28 RF: 5 cholecalciferol (vitamin D3) 50 mcg (2,000 unit) capsule 50 mcg PO DAILY RF: 0 acetaminophen 325 mg capsule 650 mg PO DAILY PRN (Reason: Pain (Scale Score 1-3)) RF: 0 aspirin 81 mg tablet,delayed release (DR/EC) 81 mg PO DAILY RF: 0 lidocaine [Lidoderm] 5 % adhesive patch,medicated 1 patch topical DAILY PRN (Reason: Pain) RF: 0 gabapentin 300 mg capsule 600 mg PO TID Qty: 120 RF: 11 glucosamine-chondroitin [Osteo Bi-Flex] 250-200 mg tablet 2 tab PO TID RF: 0 mjmxtpy-jwdrmhawu-igel 333-133-5 mg tablet 1 tab PO DAILY RF: 0 (DME) Oxygen Home Liters Per Minute 1 ea .Route .prn Qty: 1 RF: 0 albuterol sulfate 90 mcg/actuation HFA aerosol inhaler 2 puff inhalation Q6H PRN (Reason: shortness of breath or wheezing) Qty: 8.5 RF: 5 alendronate 70 mg Tablet 70 mg PO WK RF: 0 sulfamethoxazole-trimethoprim [Bactrim DS] 800-160 mg Tablet 1 tab PO Q12H RF: 0 bupropion HCl 100 mg Tablet 200 mg PO BID RF: 0 ascorbic acid (vitamin C) [Vitamin C] 500 mg Tablet 500 mg PO QAM RF: 0 tamsulosin [Flomax] 0.4 mg Capsule 0.4 mg PO QPM RF: 0 saw palmetto 500 mg Capsule 1,000 mg PO QAM RF: 0 pantoprazole 40 mg tablet,delayed release (DR/EC) 40 mg PO QAM RF: 0 chlorzoxazone 500 mg tablet 750 mg PO Q6H PRN (Reason: Muscle Spasm) RF: 0 multivitamin Tablet 1 tab PO QAM RF: 0 trazodone 150 mg Tablet 150 mg PO HS RF: 0 omega 8-neh-iyj-fish oil [Fish Oil] 1,200 (144-216) mg Capsule 1 cap PO QAM RF: 0 metoprolol tartrate 50 mg Tablet 25 mg PO BID RF: 0 ferrous sulfate 325 mg (65 mg iron) Capsule, Extended Release 65 mg PO DAILY RF: 0 terbinafine HCl 250 mg Tablet 250 mg PO DAILY RF: 0 furosemide [Lasix] 40 mg tablet 40 mg PO DAILY Qty: 30 RF: 2 Discharge Orders: Discharge Order (Routine); Ordered 01/30/21 Ordered By: Nichole Silva Admission Data Admit Date/Time: 01/29/21 00:00 Attending Provider: Gwen Morrison Admit Provider: Jaison Solano Primary Care Provider: Rayo Jordan Other Providers: Jennifer Liang ; Mark Anthony Calloway ; [facility] ; Hari Marquez ; Jaret Zambrano ; Froilan Mehta ; Lang Barron ; Alexx Sheffield ; Hair Wetzel Jr ; Juan Chamorro ; Shirley Kimble ; Marti Allen ; Emanuel Alamo ; Emanuel Bolton ; Jimmie Cooper ; Konrad Arzate ; Marycarmen Espinosa ; Yared Koch ; Garth Mendiola ; Cedric Del Rio Other Interventions: Discharge Summary Assessment (RN) Last Done: 01/30/21 18:19 Supervising Physician Co-Signing Physician Notes Resident Physician Supervision Note: I independently interviewed and examined the patient and verified the vargas history and physical, reviewed labs and image studies and agree with resident Dr. Silva findings and care plan. Resident Activity Tracking Resident Involvement: Resident Care Provided Care Provided: [facility] Medicine
[2021-02-05 02:28] LABS: Anti Cardiolipin Ab IgG <14 GPL; Anti Cardiolipin Ab IgM 22 MPL; Anti Nuclear Antibody Screen POSITIVE (NEGATIVE); Anti-Cardiolipin Ab IgA <11 APL; Anti-Centromere Ab <1.0 NEG AI (<1.0 NEG); Anti-SS-A <1.0 NEG AI (<1.0 NEG); Anti-SS-B <1.0 NEG AI (<1.0 NEG); Chromatin Antibody <1.0 NEG AI (<1.0 NEG); Complement C3 137 mg/dL (82-185); DNA ds Crithidia NEGATIVE (NEGATIVE); Microsomal Ab 12 IU/mL (<9); RNP Antibody <1.0 NEG AI (<1.0 NEG); Scleroderma Anti Scl-70 Ab <1.0 NEG AI (<1.0 NEG); Sm Antibody <1.0 NEG AI (<1.0 NEG)
[2021-02-05 12:25] LABS: ANA Pattern Nuclear, Speckled; ANA Pattern 2 Cytoplasmic; ANA Titer 1:40 titer; ANA Titer 2 1:40 titer
== END 2021-01-30 18:50 | disposition home or self-care (01) | DRG 186 ==
LOC: ED 19:37 → SUATTDRO 01-29 → 2N 01-29

== ENCOUNTER 2021-11-24 10:17 | Inpatient (IN) ==
[2021-11-24] MEDS ORDERED: MoRPHine SULFATE 2 MG/ML CARP IV STA (11:09)
--- NOTE | 2021-11-24 11:14 | Emergency Department Note ---
Impression & Plan Pleural effusion, Breath shortness, Anemia ED Provider Note NAME: NOY COREY AGE: 71 SEX: M : 1950 ARRIVES VIA: Ambulance INFORMANT: Patient ED PROVIDER(S): Justin Emmanuel DO CHIEF COMPLAINT: shortness of breath HPI: Patient is a 71-year-old male who presents the ER for shortness of breath. Patient has a past history of COPD, respiratory failure, cirrhosis, CHF, and CAD. He notes this has been getting worse for the past 3 weeks. He has a past medical history of previous Covid and recent rib fractures. He notes he can barely even walk to the bathroom at this point as he is so short of breath. Patient believes that he is written for 2 L nasal cannula but has not worn that in over a year. He notes intermittently over the past week he has been wearing this has become more short of breath. He was seen evaluated in the ER and had a thoracentesis performed yesterday and notes that his symptoms improved shortly but now they have significantly worsened. ROS: See above HPI for pertinent positives & negatives. A total of 10 systems reviewed and were otherwise negative. PAST MEDICAL HISTORY:See Below PAST SURGICAL HISTORY:See Below FAMILY HISTORY:See Below SOCIAL HISTORY:See Below HOME MEDICATIONS:See Below ALLERGIES:See Below VITALS:See Below PHYSICAL EXAMINATION: GENERAL: Sitting up in bed, alert, chronically ill-appearing, disheveled on nasal cannula EYE EXAM: normal conjunctiva. PERRL and EOM's grossly intact. OROPHARYNX: no exudate, no erythema, lips, buccal mucosa, and tongue normal and mucous membranes are moist NECK: supple, no nuchal rigidity, no adenopathy, non-tender LUNGS: Diminished bilateral. Normal chest wall mechanics HEART: no murmurs, S1 normal and S2 normal ABDOMEN: abdomen soft, non-tender, normo-active bowel sounds, no masses, no rebound or guarding. UPPER EXTREMITIES: upper extremities are grossly normal. LOWER EXTREMITIES: No pitting edema. NEURO EXAM: Normal sensorium, cranial nerves II-XII grossly intact, normal speech, no gross weakness of arms, no gross weakness of legs. MEDICAL DECISION MAKING: Patient is a 71-year-old male who presents ER for above-stated complaint. IV was established blood work was obtained. Labs show no significant leukocytosis. Mild anemia 10.5. BMP along with LFTs and lipase was unremarkable. Pro-Joshua was negative. Covid was negative. Chest x-ray shows bilateral effusions. CT of the chest shows effusions with questionable infiltrates. Patient was given a dose of IV antibiotics. He was updated bedside. He remained on nasal cannula throughout his stay in the ER and was admitted for further work-up. Triage Nursing notes reviewed. Limited review of prior medical records performed Vital Signs: reviewed and remarkable for no significant abnormalities Differential diagnosis: Differential diagnoses includes but is not limited to pneumonia, bronchitis, COPD/Asthma exacerbation, pneumothorax, pulmonary embolism, congestive heart failure, acute coronary syndrome ER treatment provided: See below Diagnostics interpreted by me: ECG: Sinus rhythm rate 93 Normal axis No PVCs QTC 437 Cardiac Monitoring: An order was placed for continuous cardiac monitoring. The monitor shows a rate of 90 with sinus rhythm. Laboratory studies: As stated above and show below. Imaging studies: CT of the chest as described above Consultation(s): Discussed with Dr. Pinto for further evaluation Procedures: none Critical Care: None Past Med/Surg History Medical History (Updated 11/24/21 @ 17:44 by Justin Emmanuel DO) Anemia Anxiety stable, controlled per pt, follows with [facility] At risk for pill esophagitis Atrial flutter, paroxysmal not on AC, not pursuing implantable loop recorder by pt decision per 06/2021 cardio note, follows with [facility] Chronic back pain Chronic hypoxemic respiratory failure Chronic osteomyelitis left hip Cirrhosis Coronary artery disease "significant triple vessel disease...felt best managed medically" follows with [facility] COVID-19 virus infection 08/2020 PNA, acute respiratory failure with hypoxia requiring BiPAP, also hospitalized 09/2020 with bilat pleural effusion and differential including potential correlation to recent COVID illness Degeneration of cervical intervertebral disc Depression stable, controlled per pt, follows with [facility] Esophageal dysphagia GERD (gastroesophageal reflux disease) controlled, stable per pt Glaucoma Hearing deficit hearing aid (left) Heart failure diastolic, follows with [facility] History of blood transfusion [id number] with multiple hip surgeries Hyperlipidemia Hypoalbuminemia due to protein-calorie malnutrition Leg length discrepancy RLE > LLE s/p multiple left hip revisions (per patient, missing hip joint) due to complications from hip surgery/revisions/MRSA infection- on chronic preventative Bactrim-- uses shoe with elevated heel/crutches Mobitz type 1 second degree AV block follows with [facility] Dr. [facility] Osteoarthritis Osteoporosis PAD (peripheral artery disease) Peptic ulcer disease 12/2018 Pleural effusion recurrent right per [facility] 04/2021 note Pulmonary hypertension Elevated at 50-60 mmHg 09/2020 echo Restless leg syndrome Shortness of breath follows with [facility], on supplemental oxygen-pt states is only using supplemental oxygen at night as daytime pulse oximeter readings are remaining above 90%-he was advised to follow recommendations by pulm and further discuss with their office Transient ischemic attack (TIA) x1 (~2014) Surgical History H/O eye surgery 2 DRAINAGE TUBES RT/LEFT EYES FOR GLAUCOMA currently in place Retinal lift and cadaver placement week of 08/03/2021 in [place] History of bilateral cataract extraction History of cardiac cath 01/2021 [facility]: "Medical management of moderate to severe CAD" NO STENTS History of colonoscopy History of esophagogastroduodenoscopy (EGD) History of hip surgery LEFT HIP SURGERY/REVISIONS (TOTAL OF 9 SURGERIES) History of laminectomy L3-L5 laminectomy: 05/12/15: Grade view 1, MAC#3, ETT 8.0 (atraumatic DL x 1) at [facility] History of tonsillectomy and adenoidectomy History of tooth extraction Status post reverse total arthroplasty of left shoulder 07/03/2019: Grade 1 view, MAC#3, ETT#8.0, atraumatic x 1 + PNB. Family History Father , about age 60 Cerebral aneurysm Mother No pertinent past medical history Grandmother (Maternal) Myocardial infarction Denies family history of Ovarian cancer Prostate cancer Crohn's disease Breast cancer Colorectal cancer Ulcerative colitis Social History (Updated 11/24/21 @ 13:59 by Doron Wilson) Smoking Status: Former smoker Tobacco Type: Cigarettes Age Started Using Tobacco: 15; packs per day: 1.5; Cigarettes Per Day: 1 ppd over 20yrs ago; Smoking End Date: early ; Second Hand Exposure: Yes; Do You Dip or Chew Tobacco: No; Hx Alcohol Use: No Hx Substance Use: Yes ("partied when younger") Last Used Substance Other:: hx medical marijuana card- does not currently use- last use 1 yr ago Preferred Language: Tajik Communication Ability: Effective Visual Impairment: No Limitations Hearing Ability: Normal Psychiatric Tech Required: No Beliefs That Will Affect Care: None marital status: Current Living Situation: Spouse current occupational status: retired 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 [employer] How many Children do You have: 2 How many Children do You have Comment: 1 is Other Information That Helps Us Care for You: No Feels Safe at Home: Yes Safety Concerns: Feels Safe At This Time caffeine: Yes Dental Care, Regularly: No Physical Activity Frequency: 1-2 Times per Week Physical Activity Frequency Comment: Rehab twice a week Seatbelt Use: always Sunscreen Use: No Assistive Devices: Crutches, Glasses, Hearing Aid - Left and Oxygen - Continuous Allergies Allergies Allergy/AdvReac Type Severity Reaction Status Date / Time No Known Allergies Allergy Unknown Verified 11/24/21 12:35 Home Meds Home Medications Medication Instructions Recorded Confirmed alendronate 70 mg tablet 70 mg PO WK 01/10/19 11/24/21 ascorbic acid (vitamin C) 500 mg 500 mg PO QAM 01/10/19 11/24/21 tablet (Vitamin C) sulfamethoxazole 800 1 tab PO Q12H 01/10/19 11/24/21 mg-trimethoprim 160 mg tablet (Bactrim DS) tamsulosin 0.4 mg capsule (Flomax) 0.4 mg PO QPM 01/10/19 11/24/21 pantoprazole 40 mg tablet,delayed 40 mg PO QAM 08/01/20 11/24/21 release multivitamin 1 tab PO QAM 10/05/20 11/24/21 omega 9-mvj-jwl-fish oil 1,200 mg 1 cap PO QAM 10/05/20 11/24/21 (144 mg-216 mg) capsule (Fish Oil) trazodone 150 mg tablet 150 mg PO HS 10/05/20 11/24/21 aspirin 81 mg tablet,delayed 81 mg PO HS 10/16/20 11/24/21 release cholecalciferol (vitamin D3) 50 50 mcg PO QAM 10/16/20 11/24/21 mcg (2,000 unit) capsule lidocaine 5 % topical patch 1 patch TOPICAL DAILY PRN 10/16/20 11/24/21 (Lidoderm) zahpcsh-fepgzomuf-lcgi 333 mg-133 1 tab PO HS 11/06/20 11/24/21 mg-5 mg tablet metoprolol tartrate 50 mg tablet 25 mg PO BID 01/16/21 11/24/21 chlorzoxazone 500 mg tablet 750 mg PO HS tab 03/06/21 11/24/21 oxybutynin chloride 5 mg tablet 5 mg PO HS 03/06/21 11/24/21 glucosamine-chondroitin 250 mg-200 1 tab PO BID tab 07/03/21 11/24/21 mg tablet (Osteo Bi-Flex) atorvastatin 40 mg tablet 40 mg PO QAM 07/29/21 11/24/21 fluticasone furoate 100 1 inh INHALATION BID 07/29/21 11/24/21 mcg-vilanterol 25 mcg/dose inhalation powder (Breo Ellipta) bupropion HCl 100 mg tablet 100 mg PO BID tab 10/21/21 11/24/21 ferrous sulfate 325 mg (65 mg 325 mg PO QAM 11/09/21 11/24/21 iron) tablet clopidogrel 75 mg tablet (Plavix) 75 mg PO DAILY 11/23/21 11/24/21 Previous Rx's Medication Instructions Recorded celecoxib 100 mg capsule (Celebrex) 100 mg PO BID #60 cap 12/08/20 furosemide 40 mg tablet (Lasix) 40 mg PO BID #60 tab 05/06/21 oxycodone-acetaminophen 5 mg-325 1 tab PO Q6H PRN #60 tab 09/30/21 mg tablet (Percocet) gabapentin 300 mg capsule 600 mg PO TID #180 cap 10/30/21 oxycodone-acetaminophen 5 mg-325 1 tab PO Q6H PRN #60 tab 11/24/21 mg tablet (Percocet) Results & Data (ED) Vital Signs Vital Signs - 24 hr 11/24/21 10:34 11/24/21 10:43 11/24/21 12:30 Temperature 37.0 C Temperature Source Oral Pulse Rate 94 H Pulse Rate [Left Apical] 97 H Pulse Rhythm [Left Apical] Regular Pulse Strength [Left Apical] Normal Respiratory Rate 24 24 Respiratory Effort / Characteristics Short of Breath Short of Breath Non-Labored Spontaneous Respiratory Depth Normal Normal Normal Respiratory Pattern Regular Regular Regular Blood Pressure 122/81 Blood Pressure [Right Arm] 130/78 Blood Pressure Mean 94 Blood Pressure Mean [Right Arm] 95 Blood Pressure Position Lying Blood Pressure Position [Right Arm] Lying Pulse Oximetry 95 95 Oxygen Delivery Method Nasal Cannula Nasal Cannula Nasal Cannula Oxygen Flow Rate 3 3 3 Sepsis Recent Fever Within 48 Hours No Sepsis New/Unexplained Change in Mental Status N/A Sepsis Action Taken by Nursing No Action Required 11/24/21 13:00 11/24/21 14:00 Temperature Temperature Source Pulse Rate 99 H Pulse Rate [Left Apical] 95 H Pulse Rhythm [Left Apical] Regular Pulse Strength [Left Apical] Normal Respiratory Rate 21 26 H Respiratory Effort / Characteristics Non-Labored Spontaneous Respiratory Depth Normal Respiratory Pattern Regular Blood Pressure 139/82 Blood Pressure [Right Arm] 122/82 Blood Pressure Mean 101 Blood Pressure Mean [Right Arm] 95 Blood Pressure Position Blood Pressure Position [Right Arm] Lying Pulse Oximetry 95 95 Oxygen Delivery Method Nasal Cannula Nasal Cannula Oxygen Flow Rate 3 3 Sepsis Recent Fever Within 48 Hours Sepsis New/Unexplained Change in Mental Status Sepsis Action Taken by Nursing Laboratory Data Result diagrams: 11/24/21 11:45 11/24/21 10:30 Lab Results 11/24/21 11/24/21 11/24/21 Range/Units 10:30 11:45 12:16 WBC 9.44 (4.8-10.8) K/uL RBC 3.66 L (4.7-6.1) M/uL Hgb 10.5 L (14.0-18.0) g/dL Hct 32.1 L (42-52) % MCV 87.7 (80-100) fL MCH 28.7 (25-34) pg MCHC 32.7 (32-36) g/dL RDW Std Deviation 49.4 H (36.4-46.3) fL RDW Coeff of Timbo 15.5 H (11.5-14.5) % Plt Count 386 (130-400) K/uL MPV 8.2 (7.4-10.4) fL Immature Gran % (Auto) 0.1 % Neut % (Auto) 78.9 % Lymph % (Auto) 10.1 % Rosebud % (Auto) 10.5 % Eos % (Auto) 0.2 % Baso % (Auto) 0.2 % Neut # (Auto) 7.45 H (1.4-6.5) K/uL Lymph # (Auto) 0.95 L (1.2-3.4) K/uL Rosebud # (Auto) 0.99 H (0.11-0.59) K/uL Eos # (Auto) 0.02 (0-0.5) K/uL Baso # (Auto) 0.02 (0-0.2) K/uL Immature Gran # (Auto) 0.01 (0.00-0.02) K/uL Sodium 136 (136-145) mmol/L Potassium 3.9 (3.5-5.1) mmol/L Chloride 103 (98-107) mmol/L Carbon Dioxide 24 (21-32) mmol/L Anion Gap 9 (3-11) BUN 20 (6-23) mg/dl Creatinine 0.94 (0.6-1.4) mg/dl Est Cr Clr Drug Dosing 79.1 ml/min Est GFR ( Amer) 94.2 ml/min Est GFR (Non-Af Amer) 81.2 ml/min BUN/Creatinine Ratio 21.3 H (10-20) Glucose 113 H (70-99(Fasting)) mg/dl Calcium 8.6 (8.5-10.1) mg/dl Total Bilirubin 0.3 (0.2-1.0) mg/dl AST 21 (13-39) U/L ALT 26 (7-52) U/L Alkaline Phosphatase 121 H (34-104) U/L Troponin I < 0.03 (0-0.04) ng/ml B-Natriuretic Peptide 39 (0-100) pg/ml Total Protein 7.0 (6.0-8.3) gm/dl Albumin 3.4 (3.4-5.0) gm/dl Globulin 3.6 (2.5-4.0) gm/dl Albumin/Globulin Ratio 0.9 (0.9-2) Lipase 19 (11-82) U/L SARS-CoV-2, RNA, NAAT (NEGATIVE) 11/24/21 Range/Units 12:30 WBC (4.8-10.8) K/uL RBC (4.7-6.1) M/uL Hgb (14.0-18.0) g/dL Hct (42-52) % MCV (80-100) fL MCH (25-34) pg MCHC (32-36) g/dL RDW Std Deviation (36.4-46.3) fL RDW Coeff of Timbo (11.5-14.5) % Plt Count (130-400) K/uL MPV (7.4-10.4) fL Immature Gran % (Auto) % Neut % (Auto) % Lymph % (Auto) % Rosebud % (Auto) % Eos % (Auto) % Baso % (Auto) % Neut # (Auto) (1.4-6.5) K/uL Lymph # (Auto) (1.2-3.4) K/uL Rosebud # (Auto) (0.11-0.59) K/uL Eos # (Auto) (0-0.5) K/uL Baso # (Auto) (0-0.2) K/uL Immature Gran # (Auto) (0.00-0.02) K/uL Sodium (136-145) mmol/L Potassium (3.5-5.1) mmol/L Chloride (98-107) mmol/L Carbon Dioxide (21-32) mmol/L Anion Gap (3-11) BUN (6-23) mg/dl Creatinine (0.6-1.4) mg/dl Est Cr Clr Drug Dosing ml/min Est GFR ( Amer) ml/min Est GFR (Non-Af Amer) ml/min BUN/Creatinine Ratio (10-20) Glucose (70-99(Fasting)) mg/dl Calcium (8.5-10.1) mg/dl Total Bilirubin (0.2-1.0) mg/dl AST (13-39) U/L ALT (7-52) U/L Alkaline Phosphatase (34-104) U/L Troponin I (0-0.04) ng/ml B-Natriuretic Peptide (0-100) pg/ml Total Protein (6.0-8.3) gm/dl Albumin (3.4-5.0) gm/dl Globulin (2.5-4.0) gm/dl Albumin/Globulin Ratio (0.9-2) Lipase (11-82) U/L SARS-CoV-2, RNA, NAAT NEGATIVE (NEGATIVE) Administered Medications Cefepime HCl 2,000 mg/ Syringe 20 mls @ 5 mls/min IV Q8H [facility]; Protocol Stop: 12/01/21 17:59 Last Admin: 11/24/21 17:07 Dose: 5 mls/min Documented by: [id number] Nystatin (Nystatin Susp 500,000 U/5 Ml Udc) 5 ml PO QID GUILLERMO Stop: 12/04/21 16:59 Last Admin: 11/24/21 17:06 Dose: 5 ml Documented by: [id number] Oxycodone/Acetaminophen (Oxycodone/Acetaminophen 5mg/325mg Tab) 1 tab PO Q6H PRN PRN Reason: pain Stop: 12/08/21 15:29 Last Admin: 11/24/21 16:22 Dose: 1 tab Documented by: [id number] Discontinued Medications Furosemide (Furosemide 40 Mg/4 Ml Vial) 40 mg IV ONE ONE Stop: 11/24/21 14:20 Last Admin: 11/24/21 14:44 Dose: 40 mg Documented by: [id number] Ceftriaxone Sodium (Rocephin) 1,000 mg in 50 mls @ 100 mls/hr IV NOW STA Stop: 11/24/21 13:27 Last Infusion: 11/24/21 14:26 Dose: 0 mls/hr Documented by: [id number] Admin: 11/24/21 13:34 Dose: 100 mls/hr Documented by: [id number] Doxycycline Hyclate 100 mg/ (Dextrose) 110 mls @ 50 mls/hr IV NOW STA Stop: 11/24/21 16:30 Last Infusion: 11/24/21 17:10 Dose: 0 mls/hr Documented by: [id number] Infusion: 11/24/21 15:33 Dose: 50 mls/hr Documented by: [id number] Admin: 11/24/21 14:44 Dose: 50 mls/hr Documented by: [id number] Ioversol (Optiray 320 100ml) 93 ml IV ONCE ONE Stop: 11/24/21 13:17 Last Admin: 11/24/21 13:20 Dose: 93 ml Documented by: [id number] Morphine Sulfate (Morphine Sulfate 2 Mg/Ml Carp) 2 mg IV NOW STA Stop: 11/24/21 11:10 Last Admin: 11/24/21 11:50 Dose: 2 mg Documented by: [id number] Imaging Data Radiologist's Impression: Chest X-Ray 11/24/21 11:06 XR chest 1V portable CLINICAL HISTORY: Atypical chest pain TECHNIQUE: Single frontal radiograph of the chest was obtained. Comparison: Comparison is made to chest one view 11/23/2021 FINDINGS: No lines and tubes are seen. The cardiomediastinal silhouette is normal. Bilateral lower lung predominant airspace opacities are seen. Bilateral pleural effusions are seen. IMPRESSION: Bilateral lower lung predominant airspace opacities which may represent atelectasis, pneumonia, and/or aspiration. Bilateral pleural effusions are seen. Overall findings are similar to prior exam. Previously noted pulmonary edema is less conspicuous. ACT 112: Negative or not required by law. Electronically signed by: Greg Squires M.D. 11/24/2021 11:[address] 11/24/21 12:58 CT SCAN OF THE CHEST WITH IV CONTRAST CLINICAL HISTORY: Dyspnea. COMPARISON STUDY: Chest x-ray dated 11/24/2021. Chest CT dated 11/09/2021. TECHNIQUE: Following the IV administration of 93 cc of Optiray 320, CT scan of the thorax was performed from the thoracic inlet to the upper abdomen. Images a re reviewed in the axial, sagittal, and coronal planes. IV contrast was administered without complication. A dose lowering technique was utilized adhering to the principles of ALARA. CT DOSE: 308.36 mGy.cm FINDINGS: Thyroid: Imaged portions of the thyroid gland are normal in size and attenuation. Thoracic aorta: There is atherosclerotic calcification of the thoracic aorta, which is normal in caliber and demonstrates standard 3-vessel arch anatomy. No dissection is seen. Pulmonary vasculature: The main pulmonary arteries appear dilated suggesting pulmonary artery hypertension. There are no filling defects identified in the central pulmonary vessels to indicate pulmonary embolus. Note that this examination was not protocoled for evaluation of the pulmonary arteries. Heart: The heart is mildly enlarged noting trace pericardial effusion. The coronary arteries are densely calcified. Lungs and pleural spaces: Evaluation of the lung parenchyma is significantly degraded by motion artifact. A fat-containing Bochdalek hernia is noted on the right. There are moderate to large bilateral pleural effusions, left larger than right with associated consolidation. The left pleural effusion has significantly increased in size as compared to 11/09/2021. The right pleural effusion has modestly decreased in size, and now contains complex debris. This is new from previous. Foci of parenchymal scarring are seen throughout both lungs. A 4 cm ovoid density in the right middle lobe is unchanged and likely represents round atelectasis. Patchy groundglass opacities are noted in both lungs, right greater than left. The trachea and central airways are clear. No pneumothorax is seen. Mediastinum: There is mild rightward shift of mediastinum. There are numerous subcentimeter mediastinal lymph nodes. An: Clear. Axillae: There is no axillary lymphadenopathy. Upper abdomen: Partially visualized upper abdominal viscera is grossly unremarkable. Skeletal structures: The skeletal structures are osteopenic. No lytic or blastic lesions are identified. A left shoulder arthroplasty is in place. There is chronic posttraumatic deformity of the right clavicle. Degenerative change is noted in the right shoulder with associated bursal fluid. There are numerous chronic/healed bilateral rib fractures. There are subcutaneous nondisplaced fractures of the left lateral 7th and 8th ribs, as well as the posterior left 8th through 10th ribs. Spondylotic change is seen throughout the thoracic spine. Soft tissues: Gynecomastia is noted. IMPRESSION: 1. There are moderate to large bilateral pleural effusions, left larger than right with associated consolidation. The left pleural effusion has significantly increased in size from 11/09/2021. 2. The right pleural effusion has modestly decreased in size from previous and now contains complex internal debris. This may represent blood clots and clinical correlation will be required. 3. Subacute left-sided rib fractures are again noted. 4. Cardiomegaly. 5. Patchy opacities are present in both lungs, right greater than left. Correlate clinically for evidence of an infectious/inflammatory pneumonitis. 6. Additional findings as above. ACT 112: Negative or not required by law. Electronically signed by: Shade Guerin M.D. 11/24/2021 1:37 PM Discharge Plan Visit Data Chief Complaint: Shortness of Breath/Dyspnea Stated Complaint: SOB, ED Provider: Justin Emmanuel Discharge Problem: Pleural effusion, Breath shortness, Anemia Patient Disposition: Admitted As Inpatient Discharge Instructions Interventions: ED Discharge Assessment Last Done: 11/24/21 15:01 Discharge Problem: Anemia Qualifiers: Anemia type: unspecified type Qualified Code(s): D64.9 - Anemia, unspecified
--- NOTE | 2021-11-24 11:23 | XRay Report ---
XR chest 1V portable CLINICAL HISTORY: Atypical chest pain TECHNIQUE: Single frontal radiograph of the chest was obtained. Comparison: Comparison is made to chest one view 11/23/2021 FINDINGS: No lines and tubes are seen. The cardiomediastinal silhouette is normal. Bilateral lower lung predomi nant airspace opacities are seen. Bilateral pleural effusions are seen. IMPRESSION: Bilateral lower lung predominant airspace opacities which may represent atelectasis, pneumonia, and/o r aspiration. Bilateral pleural effusions are seen. Overall findings are similar to prior exam. Previ ously noted pulmonary edema is less conspicuous. ACT 112: Negative or not required by law. Electronically signed by: Greg Squires M.D. 11/24/2021 11:21 AM
[2021-11-24 11:55] LABS: Basophils # (auto) 0.02 K/uL (0-0.2); Basophils % (auto) 0.2 %; Eosinophils # (auto) 0.02 K/uL (0-0.5); Eosinophils % (auto) 0.2 %; Hematocrit (blood only) 32.1 % (42-52); Hemoglobin 10.5 g/dL (14.0-18.0); Immature Granulocytes # (auto) 0.01 K/uL (0.00-0.02); Immature Granulocytes % (auto) 0.1 %; Lymphocytes # (auto) 0.95 K/uL (1.2-3.4); Lymphocytes % (auto) 10.1 %; Mean Corpuscular Hemoglobin 28.7 pg (25-34); Mean Corpuscular Hgb Conc 32.7 g/dL (32-36); Mean Corpuscular Volume 87.7 fL (80-100); Mean Platelet Volume 8.2 fL (7.4-10.4); Monocytes # (auto) 0.99 K/uL (0.11-0.59); Monocytes % (auto) 10.5 %; Neutrophils # (auto) 7.45 K/uL (1.4-6.5); Neutrophils % (auto) 78.9 %; Platelet Count 386 K/uL (130-400); RDW Coefficient of Variation 15.5 % (11.5-14.5); RDW Standard Deviation 49.4 fL (36.4-46.3); Red Blood Count 3.66 M/uL (4.7-6.1); White Blood Count 9.44 K/uL (4.8-10.8)
[2021-11-24 12:12] LABS: Troponin I < 0.03 ng/ml (0-0.04)
[2021-11-24 12:18] LABS: Alanine Aminotransferase 26 U/L (7-52); Albumin Globulin Ratio 0.9 (0.9-2); Albumin Level 3.4 gm/dl (3.4-5.0); Alkaline Phosphatase 121 U/L (34-104); Anion Gap 9 (3-11); Aspartate Aminotransferase 21 U/L (13-39); BUN Creatinine Ratio 21.3 (10-20); Bilirubin,Total 0.3 mg/dl (0.2-1.0); Blood Urea Nitrogen 20 mg/dl (6-23); Calcium 8.6 mg/dl (8.5-10.1); Carbon Dioxide 24 mmol/L (21-32); Chloride 103 mmol/L (98-107); Creatinine Clr Calc Pharmacy 79.1 ml/min; Est GFR (African American) 94.2 ml/min; Est GFR (Non-African American) 81.2 ml/min; Globulin 3.6 gm/dl (2.5-4.0); Glucose 113 mg/dl (70-99(Fasting)); Lipase 19 U/L (11-82); Potassium 3.9 mmol/L (3.5-5.1); Sodium 136 mmol/L (136-145)
--- NOTE | 2021-11-24 12:40 | Electrocardiogram Report ---
Test Reason : Blood Pressure : / mmHG Vent. Rate : 093 BPM Atrial Rate : 093 BPM P-R Int : 134 ms QRS Dur : 088 ms QT Int : 352 ms P-R-T Axes : 024 004 031 degrees QTc Int : 437 ms Normal sinus rhythm Normal ECG When compared with ECG of 23-NOV-2021 07:55, Sinus rhythm has replaced Ectopic atrial rhythm QRS axis Shifted right T wave inversion no longer evident in Lateral leads Confirmed by Froilan Mehta ([id number]) on 11/24/2021 12:40:00 PM Referred By: [email or web address] Confirmed By:Froilan Mehta
[2021-11-24] MEDS ORDERED: cefTRIAXone SODIUM 1,000 MG/50 ML BAG IV STA (12:58)
[2021-11-24] MEDS ORDERED: OPTIRAY 320 100ml IV ONE (13:16)
--- NOTE | 2021-11-24 13:39 | CT Scan Report ---
CT SCAN OF THE CHEST WITH IV CONTRAST CLINICAL HISTORY: Dyspnea. COMPARISON STUDY: Chest x-ray dated 11/24/2021. Chest CT dated 11/09/2021. TECHNIQUE: Following the IV administration of 93 cc of Optiray 320, CT scan of the thorax was perform ed from the thoracic inlet to the upper abdomen. Images are reviewed in the axial, sagittal, and cedric nal planes. IV contrast was administered without complication. A dose lowering technique was utilize d adhering to the principles of ALARA. CT DOSE: 308.36 mGy.cm FINDINGS: Thyroid: Imaged portions of the thyroid gland are normal in size and attenuation. Thoracic aorta: There is atherosclerotic calcification of the thoracic aorta, which is normal in hasmukh carlos and demonstrates standard 3-vessel arch anatomy. No dissection is seen. Pulmonary vasculature: The main pulmonary arteries appear dilated suggesting pulmonary artery hyperte nsion. There are no filling defects identified in the central pulmonary vessels to indicate pulmonary embolus. Note that this examination was not protocoled for evaluation of the pulmonary arteries. Heart: The heart is mildly enlarged noting trace pericardial effusion. The coronary arteries are dens alfonso calcified. Lungs and pleural spaces: Evaluation of the lung parenchyma is significantly degraded by motion artif act. A fat-containing Bochdalek hernia is noted on the right. There are moderate to large bilateral p leural effusions, left larger than right with associated consolidation. The left pleural effusion has significantly increased in size as compared to 11/09/2021. The right pleural effusion has modestly de creased in size, and now contains complex debris. This is new from previous. Foci of parenchymal scar ring are seen throughout both lungs. A 4 cm ovoid density in the right middle lobe is unchanged and l ikely represents round atelectasis. Patchy groundglass opacities are noted in both lungs, right great er than left. The trachea and central airways are clear. No pneumothorax is seen. Mediastinum: There is mild rightward shift of mediastinum. There are numerous subcentimeter mediastin al lymph nodes. An: Clear. Axillae: There is no axillary lymphadenopathy. Upper abdomen: Partially visualized upper abdominal viscera is grossly unremarkable. Skeletal structures: The skeletal structures are osteopenic. No lytic or blastic lesions are identifi ed. A left shoulder arthroplasty is in place. There is chronic posttraumatic deformity of the right c lavicle. Degenerative change is noted in the right shoulder with associated bursal fluid. There are n umerous chronic/healed bilateral rib fractures. There are subcutaneous nondisplaced fractures of the left lateral 7th and 8th ribs, as well as the posterior left 8th through 10th ribs. Spondylotic rubio e is seen throughout the thoracic spine. Soft tissues: Gynecomastia is noted. IMPRESSION: 1. There are moderate to large bilateral pleural effusions, left larger than right with associated co nsolidation. The left pleural effusion has significantly increased in size from 11/09/2021. 2. The right pleural effusion has modestly decreased in size from previous and now contains complex i nternal debris. This may represent blood clots and clinical correlation will be required. 3. Subacute left-sided rib fractures are again noted. 4. Cardiomegaly. 5. Patchy opacities are present in both lungs, right greater than left. Correlate clinically for evid ence of an infectious/inflammatory pneumonitis. 6. Additional findings as above. ACT 112: Negative or not required by law. Electronically signed by: Shade Guerin M.D. 11/24/2021 1:37 PM
--- NOTE | 2021-11-24 13:42 | History & Physical Report ---
Date of Service November 24, 2021 Assessment & Plan (1) Acute respiratory failure with hypoxia: Plan: Likely multifactorial - volume overload (effusions, etc) +/- pneumonia. Volume overload state likely due to acute/chronic diastolic CHF; cannot rule out cirrhosis contributing but unlikely. Lasix 40mg IV x 1 now. Consult pulmonary for consideration of left-side thoracentesis for symptomatic relief of dyspnea, etc. Fluid studies from yesterday's right-sided thoracentesis noted. Antibiotics as below. NC O2 to keep sats >92%. (2) Bilateral pleural effusion: Plan: s/p thoracentesis on right - 11/23/21. 1400cc clear fluid removed. CT chest today with large left-sided effusion. Has had numerous thoracentesis procedures in the past for diastolic CHF. He has significant dyspnea with minimal activity. Will ask pulmonary to consult tomorrow for consideration of tapping the L chest. In meantime - diurese w/ IV lasix. (3) Pneumonia: Plan: Check procal. Received rocephin in ER. Since patient was just hospitalized 3 weeks ago in [facility] will need to cover for gram negatives. Change rocephin to cefepime. Hold his chronic bactrim - change to doxy (latter for atypical coverage). (4) Diastolic CHF, acute on chronic: Plan: Plan for echo this admission to reassess LV and RV function. Previously both were wnl; CHF was on basis of diastolic dysfunction. Lasix 40mg IV x 1 now. Labs in am. Place on telemetry. Noncompliance with lasix largely to blame. I can't rule out frequent Afib/Aflutter contributing to decompensated CHF. See #2 above. Cont beta pantera. (5) Coronary artery disease: Plan: No recent ischemic symptoms. Troponin negative today. Cont asa, plavix, statin, beta pantera. (6) Cirrhosis: Plan: 2nd to RILEY? other? Previous EGD with esophageal varices. Could be contributing to volume overload but suspect most of the fluid issues are cardiac. (7) GERD (gastroesophageal reflux disease): Plan: Cont PPI. (8) Paroxysmal atrial fibrillation: Plan: Place on telemetry. Assess a.fib burden. Cont BB. Is NOT on chronic anticoagulation. (9) Esophageal varices: Plan: No recent issues. Cont PPI. (10) Mobitz type 1 second degree AV block: Plan: Dr Sheffield's note from cardiology clinic suggests that the patient declined loop recorder implantation to assess PAF, AV block, etc. Telemetry while here. (11) Anemia: Plan: 2nd to blood loss from recent PAD surgery? other? consider nutritional labs while here. (12) PAD (peripheral artery disease): Plan: s/p LLE angioplasty with stenting. Just placed on plavix within the last few weeks. Continue asa + statin. (13) Chronic ulcer of great toe: Plan: b/l. wound care nurse consult. (14) Candidiasis of mouth and esophagus: Plan: 2nd to chronic inhaled steroid use. Nystatin solution 5cc qid. (15) Chronic osteomyelitis: Plan: L hip. On bactrim prophylaxis. Hold while on doxycycline. (16) DVT prophylaxis: Plan: Hold chemical means today in anticipation of possible left-sided thoracentesis tomorrow. (17) Ribs, multiple fractures: Plan: Left, 7-10. Lidoderm patches prn. Pain meds prn. Plan: patient is on chronic Breo - does he carry dx of COPD? COPD is not on pt's problem list. Cont for now but does need PFTs in future for definitive dx. History of Present Illness Chief Complaint: difficulty breathing Primary Care Provider: Rayo Jordan, DO 71yo male with history of chronic diastolic CHF, cirrhosis with esophageal varices, h/o afib/flutter, h/o COVID-19 pneumonia in 2020 - presents with ongoing difficulty breathing starting last . Symptoms came on slowly. Dyspnea is mainly with activity. Just walking a few steps now leads to dyspnea. Over the last few days he has been sleeping in a recliner due to the breathing/orthopnea. No cough. Poor appetite since . Denies LE edema. Denies abdominal swelling. Denies significant weight changes. No fevers. He admits to not taking his lasix regularly due to frequent trips to the [facility] for PAD and gangrene of his great toes b/l. He has been to [place] at least 15 times in the past few years, but 3 times in the last 1-2 weeks. He did take his lasix last pm and this am, however. It sounds as if he had angioplasty with stents in his LLE about 3 weeks ago at the [facility]. He spent 1 night in the hospital then. He is scheduled to go back to [place] [facility] clinic on December 02. He also sees ophtho at the [facility] for corneal transplant of the L eye. He is not using home oxygen. Records show he was seen in the ER yesterday. Has right sided thoracentesis by Dr Spaulding - 1400cc of fluid was removed. Discharged to home. Allergies Allergy/AdvReac Type Severity Reaction Status Date / Time No Known Allergies Allergy Unknown Verified 11/24/21 12:35 Home Medications Medication Instructions Recorded Confirmed Type alendronate 70 mg tablet 70 mg PO WK 01/10/19 11/24/21 History ascorbic acid (vitamin C) 500 mg 500 mg PO QAM 01/10/19 11/24/21 History tablet (Vitamin C) sulfamethoxazole 800 1 tab PO Q12H 01/10/19 11/24/21 History mg-trimethoprim 160 mg tablet (Bactrim DS) tamsulosin 0.4 mg capsule (Flomax) 0.4 mg PO QPM 01/10/19 11/24/21 History pantoprazole 40 mg tablet,delayed 40 mg PO QAM 08/01/20 11/24/21 History release multivitamin 1 tab PO QAM 10/05/20 11/24/21 History omega 2-hai-ske-fish oil 1,200 mg 1 cap PO QAM 10/05/20 11/24/21 History (144 mg-216 mg) capsule (Fish Oil) trazodone 150 mg tablet 150 mg PO HS 10/05/20 11/24/21 History aspirin 81 mg tablet,delayed 81 mg PO HS 10/16/20 11/24/21 History release cholecalciferol (vitamin D3) 50 50 mcg PO QAM 10/16/20 11/24/21 History mcg (2,000 unit) capsule lidocaine 5 % topical patch 1 patch TOPICAL DAILY PRN 10/16/20 11/24/21 History (Lidoderm) bjlgniy-pdrfobagv-xyvp 333 mg-133 1 tab PO HS 11/06/20 11/24/21 History mg-5 mg tablet celecoxib 100 mg capsule (Celebrex) 100 mg PO BID #60 cap 12/08/20 11/24/21 Rx metoprolol tartrate 50 mg tablet 25 mg PO BID 01/16/21 11/24/21 History chlorzoxazone 500 mg tablet 750 mg PO HS tab 03/06/21 11/24/21 History oxybutynin chloride 5 mg tablet 5 mg PO HS 03/06/21 11/24/21 History furosemide 40 mg tablet (Lasix) 40 mg PO BID #60 tab 05/06/21 11/24/21 Rx glucosamine-chondroitin 250 mg-200 1 tab PO BID tab 07/03/21 11/24/21 History mg tablet (Osteo Bi-Flex) atorvastatin 40 mg tablet 40 mg PO QAM 07/29/21 11/24/21 History fluticasone furoate 100 1 inh INHALATION BID 07/29/21 11/24/21 History mcg-vilanterol 25 mcg/dose inhalation powder (Breo Ellipta) oxycodone-acetaminophen 5 mg-325 1 tab PO Q6H PRN #60 tab 09/30/21 11/24/21 Rx mg tablet (Percocet) bupropion HCl 100 mg tablet 100 mg PO BID tab 10/21/21 11/24/21 History gabapentin 300 mg capsule 600 mg PO TID #180 cap 10/30/21 11/24/21 Rx ferrous sulfate 325 mg (65 mg 325 mg PO QAM 11/09/21 11/24/21 History iron) tablet clopidogrel 75 mg tablet (Plavix) 75 mg PO DAILY 11/23/21 11/24/21 History oxycodone-acetaminophen 5 mg-325 1 tab PO Q6H PRN #60 tab 11/24/21 Rx mg tablet (Percocet) Past Med/Surg History Medical History (Updated 11/24/21 @ 21:55 by Doron Wilson) Anemia Anxiety stable, controlled per pt, follows with [facility] At risk for pill esophagitis Atrial flutter, paroxysmal not on AC, not pursuing implantable loop recorder by pt decision per 06/2021 cardio note, follows with AYANA Sheffield Chronic back pain Chronic hypoxemic respiratory failure Chronic osteomyelitis left hip Cirrhosis Coronary artery disease "significant triple vessel disease...felt best managed medically" follows with AYANA Sheffield COVID-19 virus infection 08/2020 PNA, acute respiratory failure with hypoxia requiring BiPAP, also hospitalized 09/2020 with bilat pleural effusion and differential including potential correlation to recent COVID illness Degeneration of cervical intervertebral disc Depression stable, controlled per pt, [facility] Esophageal dysphagia GERD (gastroesophageal reflux disease) controlled, stable per pt Glaucoma Hearing deficit hearing aid (left) Heart failure diastolic, follows with [facility] Dr. Sheffield History of blood transfusion [id number] with multiple hip surgeries Hyperlipidemia Hypoalbuminemia due to protein-calorie malnutrition Leg length discrepancy RLE > LLE s/p multiple left hip revisions (per patient, missing hip joint) due to complications from hip surgery/revisions/MRSA infection- on chronic preventative Bactrim-- uses shoe with elevated heel/crutches Mobitz type 1 second degree AV block follows with [facility] Dr. Sheffield Osteoarthritis Osteoporosis PAD (peripheral artery disease) Peptic ulcer disease 12/2018 Pleural effusion recurrent right per [facility] 04/2021 note Pulmonary hypertension Elevated at 50-60 mmHg 09/2020 echo Restless leg syndrome Shortness of breath follows with [facility], on supplemental oxygen-pt states is only using supplemental oxygen at night as daytime pulse oximeter readings are remaining above 90%-he was advised to follow recommendations by pulm and further discuss with their office Transient ischemic attack (TIA) x1 (~2014) Surgical History H/O eye surgery 2 DRAINAGE TUBES RT/LEFT EYES FOR GLAUCOMA currently in place Retinal lift and cadaver placement week of 08/03/2021 in [place] History of bilateral cataract extraction History of cardiac cath 01/2021 [facility]: "Medical management of moderate to severe CAD" NO STENTS History of colonoscopy History of esophagogastroduodenoscopy (EGD) History of hip surgery LEFT HIP SURGERY/REVISIONS (TOTAL OF 9 SURGERIES) History of laminectomy L3-L5 laminectomy: 05/12/15: Grade view 1, MAC#3, ETT 8.0 (atraumatic DL x 1) at [facility] History of tonsillectomy and adenoidectomy History of tooth extraction Status post reverse total arthroplasty of left shoulder 07/03/2019: Grade 1 view, MAC#3, ETT#8.0, atraumatic x 1 + PNB. Family History Father , about age 60 Cerebral aneurysm Mother No pertinent past medical history Grandmother (Maternal) Myocardial infarction Denies family history of Ovarian cancer Prostate cancer Crohn's disease Breast cancer Colorectal cancer Ulcerative colitis Social History (Updated 11/24/21 @ 13:59 by Doron Wilson) Smoking Status: Former smoker Tobacco Type: Cigarettes Age Started Using Tobacco: 15; packs per day: 1.5; Cigarettes Per Day: 1 ppd over 20yrs ago; Smoking End Date: early ; Second Hand Exposure: Yes; Do You Dip or Chew Tobacco: No; Hx Alcohol Use: No Hx Substance Use: Yes ("partied when younger") Last Used Substance Other:: hx medical marijuana card- does not currently use- last use 1 yr ago Preferred Language: Slovak Communication Ability: Effective Visual Impairment: No Limitations Hearing Ability: Normal Timber Incisor Operator Required: No Beliefs That Will Affect Care: None marital status: Current Living Situation: Spouse current occupational status: retired 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 [employer] How many Children do You have: 2 How many Children do You have Comment: 1 is Other Information That Helps Us Care for You: No Feels Safe at Home: Yes Safety Concerns: Feels Safe At This Time caffeine: Yes Dental Care, Regularly: No Physical Activity Frequency: 1-2 Times per Week Physical Activity Frequency Comment: Rehab twice a week Seatbelt Use: always Sunscreen Use: No Assistive Devices: Crutches, Glasses, Hearing Aid - Left and Oxygen - Continuous Review of Systems Review of Systems: gen - no fevers; appetite poor since ; weight gain - gradual - over months eyes - chronic visual issues = follows with [facility] HENT - no hearing changes but has chronic hearing loss on L - wears an aid; no dysphagia; no sore throat neck - no pain CV - no recent chest pain; +orthopnea; +PND; occasional chest "heaviness" Pulm - no cough; +shortness of breath GI - no nausea, emesis, diarrhea; no blood in stool - no voiding troubles musculo - rib pain from a fall about 2 weeks ago, left sided fractures skin - no rashes endo - no diabetes psych - no depression or anxiety Physical Exam Physical Exam: gen - NAD, no increased work of breathing, able to talk in complete sentences eyes - PERRL, lens implants b/l HENT - mouth with MMM neck - mild JVD present, no masses or lymph nodes heart - tachy, irregular, s1 s2, no murmur lungs - decreased BS b/l bases worse on left; occasional crackle b/l; no wheeze abd - soft NT ND BS+ ext - right leg is larger than left leg; <1+ edema b/l; pulses 1-2+ b/l skin - no rash; b/l great toes with ulcers/gangrenous lesions - no foul odor, dry, no drainage neuro - strength 5/5 x 4 exts psych - a/o x 3 Results & Data Results & Data ([facility]) Vital Signs (Past 12 Hours) Vital Signs Temp Pulse Pulse Resp BP BP Pulse Ox 11/24/21 13:00 95 H 21 122/82 95 11/24/21 12:30 97 H 24 130/78 95 11/24/21 10:34 37.0 C 94 H 24 122/81 95 Laboratory Results Laboratory Results - last 24 hr 11/24/21 11/24/21 11/24/21 10:30 11:45 12:16 WBC 9.44 RBC 3.66 L Hgb 10.5 L Hct 32.1 L MCV 87.7 MCH 28.7 MCHC 32.7 RDW Std Deviation 49.4 H RDW Coeff of Timbo 15.5 H Plt Count 386 MPV 8.2 Immature Gran % (Auto) 0.1 Neut % (Auto) 78.9 Lymph % (Auto) 10.1 Payette % (Auto) 10.5 Eos % (Auto) 0.2 Baso % (Auto) 0.2 Neut # (Auto) 7.45 H Lymph # (Auto) 0.95 L Payette # (Auto) 0.99 H Eos # (Auto) 0.02 Baso # (Auto) 0.02 Immature Gran # (Auto) 0.01 Sodium 136 Potassium 3.9 Chloride 103 Carbon Dioxide 24 Anion Gap 9 BUN 20 Creatinine 0.94 Est Cr Clr Drug Dosing 79.1 Est GFR ( Amer) 94.2 Est GFR (Non-Af Amer) 81.2 BUN/Creatinine Ratio 21.3 H Glucose 113 H Calcium 8.6 Total Bilirubin 0.3 AST 21 ALT 26 Alkaline Phosphatase 121 H Lactate Dehydrogenase Troponin I < 0.03 B-Natriuretic Peptide 39 Total Protein 7.0 Albumin 3.4 Globulin 3.6 Albumin/Globulin Ratio 0.9 Lipase 19 Procalcitonin SARS-CoV-2, RNA, NAAT 11/24/21 11/24/2111/24/22 12:30 15:45 15:45 WBC RBC Hgb Hct MCV MCH MCHC RDW Std Deviation RDW Coeff of Timbo Plt Count MPV Immature Gran % (Auto) Neut % (Auto) Lymph % (Auto) Payette % (Auto) Eos % (Auto) Baso % (Auto) Neut # (Auto) Lymph # (Auto) Payette # (Auto) Eos # (Auto) Baso # (Auto) Immature Gran # (Auto) Sodium Potassium Chloride Carbon Dioxide Anion Gap BUN Creatinine Est Cr Clr Drug Dosing Est GFR ( Amer) Est GFR (Non-Af Amer) BUN/Creatinine Ratio Glucose Calcium Total Bilirubin AST ALT Alkaline Phosphatase Lactate Dehydrogenase 159 Troponin I B-Natriuretic Peptide Total Protein Albumin Globulin Albumin/Globulin Ratio Lipase Procalcitonin 0.09 SARS-CoV-2, RNA, NAAT NEGATIVE Diagnostic Findings Chest X-Ray 11/24/21 11:06 XR chest 1V portable CLINICAL HISTORY: Atypical chest pain TECHNIQUE: Single frontal radiograph of the chest was obtained. Comparison: Comparison is made to chest one view 11/23/2021 FINDINGS: No lines and tubes are seen. The cardiomediastinal silhouette is normal. Bilateral lower lung predominant airspace opacities are seen. Bilateral pleural effusions are seen. IMPRESSION: Bilateral lower lung predominant airspace opacities which may represent atelectasis, pneumonia, and/or aspiration. Bilateral pleural effusions are seen. Overall findings are similar to prior exam. Previously noted pulmonary edema is less conspicuous. ACT 112: Negative or not required by law. Electronically signed by: Greg Squires M.D. 11/24/2021 11:[address] 11/24/21 12:58 CT SCAN OF THE CHEST WITH IV CONTRAST CLINICAL HISTORY: Dyspnea. COMPARISON STUDY: Chest x-ray dated 11/24/2021. Chest CT dated 11/09/2021. TECHNIQUE: Following the IV administration of 93 cc of Optiray 320, CT scan of the thorax was performed from the thoracic inlet to the upper abdomen. Images are reviewed in the axial, sagittal, and coronal planes. IV contrast was administered without complication. A dose lowering technique was utilized adhering to the principles of ALARA. CT DOSE: 308.36 mGy.cm FINDINGS: Thyroid: Imaged portions of the thyroid gland are normal in size and attenuation. Thoracic aorta: There is atherosclerotic calcification of the thoracic aorta, which is normal in caliber and demonstrates standard 3-vessel arch anatomy. No dissection is seen. Pulmonary vasculature: The main pulmonary arteries appear dilated suggesting pulmonary artery hypertension. There are no filling defects identified in the central pulmonary vessels to indicate pulmonary embolus. Note that this examination was not protocoled for evaluation of the pulmonary arteries. Heart: The heart is mildly enlarged noting trace pericardial effusion. The coronary arteries are densely calcified. Lungs and pleural spaces: Evaluation of the lung parenchyma is significantly degraded by motion artifact. A fat-containing Bochdalek hernia is noted on the right. There are moderate to large bilateral pleural effusions, left larger than right with associated consolidation. The left pleural effusion has significantly increased in size as compared to 11/09/2021. The right pleural effusion has modestly decreased in size, and now contains complex debris. This is new from previous. Foci of parenchymal scarring are seen throughout both lungs. A 4 cm ovoid density in the right middle lobe is unchanged and likely represents round atelectasis. Patchy groundglass opacities are noted in both lungs, right greater than left. The trachea and central airways are clear. No pneumothorax is seen. Mediastinum: There is mild rightward shift of mediastinum. There are numerous subcentimeter mediastinal lymph nodes. An: Clear. Axillae: There is no axillary lymphadenopathy. Upper abdomen: Partially visualized upper abdominal viscera is grossly unremarkable. Skeletal structures: The skeletal structures are osteopenic. No lytic or blastic lesions are identified. A left shoulder arthroplasty is in place. There is chronic posttraumatic deformity of the right clavicle. Degenerative change is noted in the right shoulder with associated bursal fluid. There are numerous chronic/healed bilateral rib fractures. There are subcutaneous nondisplaced fractures of the left lateral 7th and 8th ribs, as well as the posterior left 8th through 10th ribs. Spondylotic change is seen throughout the thoracic spine. Soft tissues: Gynecomastia is noted. IMPRESSION: 1. There are moderate to large bilateral pleural effusions, left larger than right with associated consolidation. The left pleural effusion has significantly increased in size from 11/09/2021. 2. The right pleural effusion has modestly decreased in size from previous and now contains complex internal debris. This may represent blood clots and clinical correlation will be required. 3. Subacute left-sided rib fractures are again noted. 4. Cardiomegaly. 5. Patchy opacities are present in both lungs, right greater than left. Correlate clinically for evidence of an infectious/inflammatory pneumonitis. 6. Additional findings as above. ACT 112: Negative or not required by law. Electronically signed by: Shade Guerin M.D. 11/24/2021 1:37 PM EKG - NSR, no ST changes Code Status & VTE Plan Code Status full code PG Care Time/CCT Total # of Minutes Spent Total Time Spent with Patient: Total time spent is greater than 50% in coordination of care (as documented) at patient's floor/unit and/or counseling patient: Coding Level of Care Code 46158 Initial Inpt Care Lvl 3 Diagnoses Acute respiratory failure with hypoxia J96.01 Bilateral pleural effusion J90 Coronary artery disease I25.10 Associated angina: without angina Coronary Disease-Associated Artery/Lesion type: [place] artery [place] vs. transplanted heart: [place] heart Diastolic CHF, acute on chronic I50.33 Cirrhosis K74.60 GERD (gastroesophageal reflux disease) K21.9 Paroxysmal atrial fibrillation I48.0 Esophageal varices I85.00 Mobitz type 1 second degree AV block I44.1 Anemia D64.9 Pneumonia J18.9 PAD (peripheral artery disease) I73.9 Chronic ulcer of great toe L97.509 DVT prophylaxis Z29.9 Candidiasis of mouth and esophagus B37.81; B37.0 Chronic osteomyelitis M86.60 Ribs, multiple fractures S22.49XA (1) Coronary artery disease Associated angina: without angina Coronary Disease-Associated Artery/Lesion type: [place] artery [place] vs. transplanted heart: [place] heart Qualified Code(s): I25.10 - Atherosclerotic heart disease of [place] coronary artery without angina pectoris
[2021-11-24] MEDS ORDERED: DOXYCYCLINE HYCLATE 100 MG in DEXTROSE 5% 100 ML IV STA (14:19)
[2021-11-24] MEDS ORDERED: FUROSEMIDE 40 MG/4 ML VIAL IV ONE (14:19)
[2021-11-24] MEDS ORDERED: NITROGLYCERIN SL 0.4 MG/TAB TAB SL PRN (15:30)
[2021-11-24] MEDS ORDERED: ONDANSETRON INJ 2 MG/ML 2 ML VIAL IV PRN (15:30)
[2021-11-24] MEDS ORDERED: LIDOCAINE 5% 1 PATCH TD PRN (15:30)
[2021-11-24] MEDS ORDERED: ACETAMINOPHEN 325 MG TAB PO PRN (15:30)
[2021-11-24] MEDS ORDERED: MoRPHine SULFATE 2 MG/ML CARP IV PRN (15:30)
[2021-11-24] MEDS: oxyCODONE/ACETAMINOPHEN 5mg/325mg TAB PO PRN ×2 (16:22→21:49)
[2021-11-24] MEDS: NYSTATIN SUSP 500,000 U/5 ML UDC PO SCH ×2 (17:06→20:44)
[2021-11-24] MEDS: CEFEPIME 2,000 MG in SYRINGE 0 ML IV SCH (17:07)
[2021-11-24] MEDS: ASPIRIN 81 MG ECTAB PO SCH (20:20)
[2021-11-24] MEDS: DOXYCYCLINE HYCLATE 100 MG in DEXTROSE 5% 100 ML IV SCH (20:22)
[2021-11-24] MEDS: buPROPion HCl 100 MG TABLET PO SCH (20:30)
[2021-11-24] MEDS: CHLORZOXAZONE 500 MG TAB PO SCH (20:31)
[2021-11-24] MEDS: FLUTICASONE/VILANTEROL 200/25MCG 14 PUFFS/INHALER INH SCH (20:40)
[2021-11-24] MEDS: GABAPENTIN 600 MG TAB PO SCH (20:41)
[2021-11-24] MEDS: METOPROLOL TARTRATE 25 MG TAB PO SCH (20:42)
[2021-11-24] MEDS: TAMSULOSIN HCL 0.4 MG CAP PO SCH (20:45)
[2021-11-24] MEDS: OXYBUTYNIN CHLORIDE 5 MG TAB PO SCH (20:46)
[2021-11-24] MEDS ORDERED: FLUTICASONE/VILANTEROL 100/25MCG 14 PUFFS/INHALER INH SCH (21:00)
[2021-11-24] MEDS: traZODone HCL 50 MG TAB PO SCH (21:50)
[2021-11-25] MEDS: CEFEPIME 2,000 MG in SYRINGE 0 ML IV SCH ×3 (02:00→18:40)
[2021-11-25] MEDS: oxyCODONE/ACETAMINOPHEN 5mg/325mg TAB PO PRN ×3 (03:45→16:50)
[2021-11-25] MEDS ORDERED: Nursing to Pharmacy Communication SCH (04:15)
[2021-11-25] MEDS: PANTOprazole 40 MG TAB PO SCH (05:58)
[2021-11-25 06:56] LABS: Iron 10 mcg/dl (35-175); Total Iron Binding Cap Calc 202 mcg/dl (250-450); Transferrin (FE) Percent Satur 5 % (20-50); Unsaturated Iron Binding Cap 192 mcg/dl (155-355)
[2021-11-25 07:07] LABS: BUN Creatinine Ratio 24.1 (10-20); Calcium 8.3 mg/dl (8.5-10.1); Creatinine Clr Calc Pharmacy 93.5 ml/min; Est GFR (African American) 104.7 ml/min; Est GFR (Non-African American) 90.3 ml/min; Potassium 3.5 mmol/L (3.5-5.1)
[2021-11-25 07:17] LABS: Ferritin 169.7 ng/ml (8-388)
[2021-11-25 07:22] LABS: Folate (Folic Acid) > 22.30 ng/ml (>5.38)
[2021-11-25 07:23] LABS: Vitamin B12 851 pg/ml (180-914)
[2021-11-25] MEDS: MULTIVITAMIN TAB PO SCH (08:52)
[2021-11-25] MEDS: METOPROLOL TARTRATE 25 MG TAB PO SCH ×2 (08:52→22:07)
[2021-11-25] MEDS: ADVANCED PROBIOTIC 1250 MG CAPSULE PO SCH (08:52)
[2021-11-25] MEDS: GABAPENTIN 600 MG TAB PO SCH ×3 (08:52→22:05)
[2021-11-25] MEDS: buPROPion HCl 100 MG TABLET PO SCH ×2 (08:53→22:08)
[2021-11-25] MEDS: CLOPIDOGREL BISULFATE 75 MG TAB PO SCH (08:53)
[2021-11-25] MEDS: ASCORBIC ACID 500 MG TAB PO SCH (08:53)
[2021-11-25] MEDS: CHOLECALCIFEROL 1,000 UNITS 25 MCG TAB PO SCH (08:53)
[2021-11-25] MEDS: ATORVASTATIN 40 MG TAB PO SCH (08:53)
[2021-11-25] MEDS: POM - DORZOLAMIDE/TIMOLOL 22.3/6.8MG/ML 10 ML BTL OP SCH ×3 (08:54→22:06)
[2021-11-25] MEDS: BRIMONIDINE TARTRATE 0.2% 5ML OP SCH ×2 (08:54→22:10)
[2021-11-25] MEDS: PREDNISOLONE ACETATE 1% OP SCH ×3 (08:55→22:12)
[2021-11-25] MEDS: NYSTATIN SUSP 500,000 U/5 ML UDC PO SCH ×4 (08:55→22:07)
[2021-11-25] MEDS: LIDOCAINE 5% 1 PATCH TD SCH (08:55)
[2021-11-25] MEDS: POLYETHYLENE (MIRALAX) 17 GM PACK PO SCH (08:59)
[2021-11-25] MEDS: DOXYCYCLINE HYCLATE 100 MG in DEXTROSE 5% 100 ML IV SCH ×2 (09:01→22:05)
[2021-11-25] MEDS ORDERED: POTASSIUM CHLORIDE CRTAB 20 MEQ TABCR PO STA (09:12)
[2021-11-25] MEDS: FUROSEMIDE 40 MG/4 ML VIAL IV SCH (11:28)
--- NOTE | 2021-11-25 12:32 | XCELERA ---
[id number]
[2021-11-25 14:19] LABS: Hemoglobin 10.5 g/dL (14.0-18.0)
--- NOTE | 2021-11-25 14:22 | XRay Report ---
XR chest 1V portable CLINICAL HISTORY: s/p left thoracentesis COMPARISON STUDY: Chest radiograph and chest CT January 24, 2022. FINDINGS: There is no pneumothorax following left thoracentesis. No significant residual left pleural fluid is present. Multiple left-sided rib fractures are better depicted on prior chest CT. A moderat e to large right pleural effusion is again noted. Old right clavicular fracture is present as well as a left forearm opacity. Right basilar opacity persists. Linear left basilar opacity reflects atelect asis. IMPRESSION: 1. No pneumothorax following left thoracentesis. No residual left pleural fluid identified. 2. Persistent moderate to large right pleural effusion with associated airspace opacity. ACT 112: Negative or not required by law. Electronically signed by: Kalyan Martinez M.D. 11/25/2021 2:21 PM
--- NOTE | 2021-11-25 14:53 | Pulmonary Consultation ---
Date of Consultation November 25, 2021 Assessment & Plan (1) Pleural effusion: (2) Ribs, multiple fractures: (3) Hemothorax on left: (4) Diastolic CHF, acute on chronic: (5) PAD (peripheral artery disease): Attending: Dr. Spaulding Impression: This 71-year-old male with history of recurrent bilateral pleural effusions secondary to congestive heart failure. Patient has recently been started on clopidogrel secondary to peripheral arterial disease. He had a fall and has multiple rib fractures on the left. No flail chest. Patient does have large accumulation of effusion on the left side and complains of shortness of breath. Patient is saturating well on 2 L/min via nasal cannula and is at 92% presently. Consulted to evaluate for possible thoracentesis on the left. Recommendations: 1. Left pleural effusion: * Status post left thoracentesis with 2.2 L of bloody pleural fluid secondary to hemothorax suspected be secondary to rib fractures * Repeat hemoglobin was ordered and is stable at 10.5 which was the admitting hemoglobin * Sample of fluid sent to lab for hematocrit * At this time no indication for chest tube as postprocedural chest x-ray shows almost complete resolution of pneumothorax status post thoracentesis. * Will repeat H&H in 4 hours. Repeat chest x-ray tomorrow morning. * Continue to monitor on telemetry with pulse oximetry and heart monitoring. 2. Recurrent right-sided pleural effusion: * Thoracentesis performed by Dr. Spaulding on 11/23/2021 * Chest x-ray today shows reaccumulation of the fluid * At this time we will not consider thoracentesis unless patient becomes hypoxic * There is room for diuresis is patient's creatinine is 0.62. Recommend furosemide. Consider metolazone and Aldactone. * Repeat chest x-ray tomorrow. 3. Acute hypoxic respiratory failure: * Secondary to diastolic heart failure. * Thoracentesis 11/23/2021 on the right * Thoracentesis 11/25/2021 on the left * Continue supplemental oxygen to maintain SaO2 greater than 90% * Attempt to titrate supplemental oxygen off as tolerated. Patient was seen by Dr. Spaulding. Dr. Spaulding also present at the completion of the thoracentesis with the hemothorax today. We will continue to follow this patient throughout this hospital stay until stable. History of Present Illness Reason for Consultation: Bilateral pleural effusionsBilateral pleural effusions Requesting Physician: Dr. Wilson Attending Physician: Doron Wilson History of Present Illness Attending: Dr. Spaulding Consult for evaluation for thoracentesis. Patient with past medical history of anemia, chronic osteomyelitis, oral candidiasis, esophageal candidiasis, chronic ulcer of the great toe, history of pneumonia, peripheral artery disease, recurrent bilateral pleural effusions secondary to congestive heart failure, congestive heart failure, olecranon bursitis of right elbow, Mobitz type I second-degree AV block, esophageal dysphagia, paroxysmal atrial fibrillation, abscess of back, history of COVID-19, onychomycosis, hypoalbuminemia, protein calorie malnutrition, pulmonary hypertension, and GERD. This is a 71-year-old male that is known to our service from previous pleural effusions with thoracentesis. He was seen first by Dr. Calloway who performed thoracentesis which came back as transudate of fluid. The patient was then seen on Tuesday of this week by Dr. Spaulding in the emergency department. He performed a thoracentesis and the patient was discharged home. The patient presents back yesterday with increased shortness of breath. He is admitted to telemetry floor and found to have recurrent right-sided pleural fluid status post thoracentesis by Dr. Spaulding as well as recurrent left-sided pleural effusion. Patient does have rib fractures on the left. Is concerned that this may be hemothorax. Patient currently is requiring 2 L of supplemental oxygen to maintain SaO2 greater than 90%. Patient was seen at bedside and risk of repeat thoracentesis explained. Patient is also been started on clopidogrel and increased risk of bleeding was also explained to the patient. He elected to go forward with left-sided thoracentesis due to his difficulty with breathing and spite of the increased risk of bleeding. It was also explained to the patient that if he did bleed that this may result in . Patient expressed understanding and asked that we proceed with the procedure. Patient is vaccinated for Covid with Moderna on 10/13/2020, 11/15/2020, and 06/29/2021. Patient is on furosemide as an outpatient for his congestive heart failure. He admits to missing doses as he has been in [place] 3 times in last 1 to 2 weeks. He did not want to take his Lasix as he did not want to stop to urinate. Allergies Allergy/AdvReac Type Severity Reaction Status Date / Time No Known Allergies Allergy Unknown Verified 11/24/21 12:35 Home Medications Medication Instructions Recorded Confirmed Type alendronate 70 mg tablet 70 mg PO WK 01/10/19 11/24/21 History ascorbic acid (vitamin C) 500 mg 500 mg PO QAM 01/10/19 11/24/21 History tablet (Vitamin C) sulfamethoxazole 800 1 tab PO Q12H 01/10/19 11/24/21 History mg-trimethoprim 160 mg tablet (Bactrim DS) tamsulosin 0.4 mg capsule (Flomax) 0.4 mg PO QPM 01/10/19 11/24/21 History pantoprazole 40 mg tablet,delayed 40 mg PO QAM 08/01/20 11/24/21 History release multivitamin 1 tab PO QAM 10/05/20 11/24/21 History omega 6-cvp-syc-fish oil 1,200 mg 1 cap PO QAM 10/05/20 11/24/21 History (144 mg-216 mg) capsule (Fish Oil) trazodone 150 mg tablet 150 mg PO HS 10/05/20 11/24/21 History aspirin 81 mg tablet,delayed 81 mg PO HS 10/16/20 11/24/21 History release cholecalciferol (vitamin D3) 50 50 mcg PO QAM 10/16/20 11/24/21 History mcg (2,000 unit) capsule lidocaine 5 % topical patch 1 patch TOPICAL DAILY PRN 10/16/20 11/24/21 History (Lidoderm) ynggkft-cbygzlplc-vibn 333 mg-133 1 tab PO HS 11/06/20 11/24/21 History mg-5 mg tablet celecoxib 100 mg capsule (Celebrex) 100 mg PO BID #60 cap 12/08/20 11/24/21 Rx metoprolol tartrate 50 mg tablet 25 mg PO BID 01/16/21 11/24/21 History chlorzoxazone 500 mg tablet 750 mg PO HS tab 03/06/21 11/24/21 History oxybutynin chloride 5 mg tablet 5 mg PO HS 03/06/21 11/24/21 History furosemide 40 mg tablet (Lasix) 40 mg PO BID #60 tab 05/06/21 11/24/21 Rx glucosamine-chondroitin 250 mg-200 1 tab PO BID tab 07/03/21 11/24/21 History mg tablet (Osteo Bi-Flex) atorvastatin 40 mg tablet 40 mg PO QAM 07/29/21 11/24/21 History fluticasone furoate 100 1 inh INHALATION BID 07/29/21 11/24/21 History mcg-vilanterol 25 mcg/dose inhalation powder (Breo Ellipta) oxycodone-acetaminophen 5 mg-325 1 tab PO Q6H PRN #60 tab 09/30/21 11/24/21 Rx mg tablet (Percocet) bupropion HCl 100 mg tablet 100 mg PO BID tab 10/21/21 11/24/21 History gabapentin 300 mg capsule 600 mg PO TID #180 cap 10/30/21 11/24/21 Rx ferrous sulfate 325 mg (65 mg 325 mg PO QAM 11/09/21 11/24/21 History iron) tablet clopidogrel 75 mg tablet (Plavix) 75 mg PO DAILY 11/23/21 11/24/21 History oxycodone-acetaminophen 5 mg-325 1 tab PO Q6H PRN #60 tab 11/24/21 Rx mg tablet (Percocet) Patient History Medical History (Updated 11/25/21 @ 14:48 by Shade Cortez PA-C) Anemia Anxiety stable, controlled per pt, follows with [facility] At risk for pill esophagitis Atrial flutter, paroxysmal not on AC, not pursuing implantable loop recorder by pt decision per 06/2021 cardio note, follows with [facility] Chronic back pain Chronic hypoxemic respiratory failure Chronic osteomyelitis left hip Cirrhosis Coronary artery disease "significant triple vessel disease...felt best managed medically" follows with [facility] COVID-19 virus infection 08/2020 PNA, acute respiratory failure with hypoxia requiring BiPAP, also hospitalized 09/2020 with bilat pleural effusion and differential including potential correlation to recent COVID illness Degeneration of cervical intervertebral disc Depression stable, controlled per pt, follows with [facility] Esophageal dysphagia GERD (gastroesophageal reflux disease) controlled, stable per pt Glaucoma Hearing deficit hearing aid (left) Heart failure diastolic, follows with [facility] Hemothorax on left History of blood transfusion [id number] with multiple hip surgeries Hyperlipidemia Hypoalbuminemia due to protein-calorie malnutrition Leg length discrepancy RLE > LLE s/p multiple left hip revisions (per patient, missing hip joint) due to complications from hip surgery/revisions/MRSA infection- on chronic preventative Bactrim-- uses shoe with elevated heel/crutches Mobitz type 1 second degree AV block follows with [facility] Dr. Sheffield Osteoarthritis Osteoporosis PAD (peripheral artery disease) Peptic ulcer disease 12/2018 Pleural effusion recurrent right per [facility] 04/2021 note Pulmonary hypertension Elevated at 50-60 mmHg 09/2020 echo Restless leg syndrome Shortness of breath follows with [facility], on supplemental oxygen-pt states is only using supplemental oxygen at night as daytime pulse oximeter readings are remaining above 90%-he was advised to follow recommendations by pulm and further discuss with their office Transient ischemic attack (TIA) x1 (~2014) Surgical History H/O eye surgery 2 DRAINAGE TUBES RT/LEFT EYES FOR GLAUCOMA currently in place Retinal lift and cadaver placement week of 08/03/2021 in [place] History of bilateral cataract extraction History of cardiac cath 01/2021 [facility]: "Medical management of moderate to severe CAD" NO STENTS History of colonoscopy History of esophagogastroduodenoscopy (EGD) History of hip surgery LEFT HIP SURGERY/REVISIONS (TOTAL OF 9 SURGERIES) History of laminectomy L3-L5 laminectomy: 05/12/15: Grade view 1, MAC#3, ETT 8.0 (atraumatic DL x 1) at [facility] History of tonsillectomy and adenoidectomy History of tooth extraction Status post reverse total arthroplasty of left shoulder 07/03/2019: Grade 1 view, MAC#3, ETT#8.0, atraumatic x 1 + PNB. Family History Father , about age 60 Cerebral aneurysm Mother No pertinent past medical history Grandmother (Maternal) Myocardial infarction Denies family history of Ovarian cancer Prostate cancer Crohn's disease Breast cancer Colorectal cancer Ulcerative colitis Social History Smoking Status: Former smoker Tobacco Type: Cigarettes Age Started Using Tobacco: 15; packs per day: 1.5; Cigarettes Per Day: 1 ppd over 20yrs ago; Smoking End Date: early ; Second Hand Exposure: Yes; Do You Dip or Chew Tobacco: No; Hx Alcohol Use: No Hx Substance Use: Yes ("partied when younger") Last Used Substance Other:: hx medical marijuana card- does not currently use- last use 1 yr ago Preferred Language: Divehi Communication Ability: Effective Visual Impairment: No Limitations Hearing Ability: Normal Support Coordinator Required: No Beliefs That Will Affect Care: None marital status: Current Living Situation: Spouse current occupational status: retired 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 [employer] How many Children do You have: 2 How many Children do You have Comment: 1 is Other Information That Helps Us Care for You: No Feels Safe at Home: Yes Safety Concerns: Feels Safe At This Time caffeine: Yes Dental Care, Regularly: No Physical Activity Frequency: 1-2 Times per Week Physical Activity Frequency Comment: Rehab twice a week Seatbelt Use: always Sunscreen Use: No Assistive Devices: Crutches and Walker Review of Systems Review of Systems: 10 systems were reviewed and are negative other than as listed above in the HPI Physical Exam Physical Exam: GENERAL : No acute distress EYES: No icterus, gaze conjugate NOSE: No evidence of epistaxis MOUTH: No lesions or candidiasis NECK: Supple LUNGS: Decreased breath sounds bilaterally at the bases. No appreciation of significant wheezes, rales, rhonchi. Deep inspiration causes cough. HEART: Regular, rate controlled ABDOMEN: Soft, NT, ND, BS Present EXTREMITIES: No LE edema, gangrenous toes NEURO: A&OX3 Results & Data Results & Data ([facility]) Vital Signs (Past 12 Hours) Vital Signs Temp Pulse Resp BP Pulse Ox 11/25/21 12:00 36.9 C 92 H 19 123/79 93 11/25/21 08:02 36.9 C 106 H 18 134/76 90 11/25/21 03:36 37.0 C 101 H 18 148/82 H 93 Critical Care Results & Data Vital Signs (Past 12 Hours) Vital Signs Temp Pulse Resp BP Pulse Ox 11/25/21 12:00 36.9 C 92 H 19 123/79 93 11/25/21 08:02 36.9 C 106 H 18 134/76 90 11/25/21 03:36 37.0 C 101 H 18 148/82 H 93 Lab & Micro Results (Past 24 Hours) Hgb 10.5 g/dL (14.0-18.0) L 03/30/22 Hct 33.0 % (42-52) L 11/25/21 Na 137 mmol/L (136-145) 11/25/21 K 3.5 mmol/L (3.5-5.1) 11/25/21 Cl 104 mmol/L (98-107) 11/25/21 CO2 26 mmol/L (21-32) 11/25/21 Anion Gap 7 (3-11) 11/25/21 BUN 19 mg/dl (6-23) 11/25/21 Creatinine 0.79 mg/dl (0.6-1.4) 11/25/21 Estimated GFR ( Amer) 104.7 ml/min 11/25/21 Estimated GFR (Non-Af Amer) 90.3 ml/min 11/25/21 BUN/Creatinine Ratio 24.1 (10-20) H 11/25/21 Glu 117 mg/dl (70-99(Fasting)) H 11/25/21 Ca 8.3 mg/dl (8.5-10.1) L 11/25/21 Lactate Dehydrogenase 159 U/L (86-244) 11/24/21 Calcium Level 8.3 mg/dl (8.5-10.1) L 11/25/21 05:49 11/25/21 Diagnostic Findings (Past 24 Hours) Chest X-Ray 11/25/21 13:53 XR chest 1V portable CLINICAL HISTORY: s/p left thoracentesis COMPARISON STUDY: Chest radiograph and chest CT January 24, 2022. FINDINGS: There is no pneumothorax following left thoracentesis. No significant residual left pleural fluid is present. Multiple left-sided rib fractures are better depicted on prior chest CT. A moderate to large right pleural effusion is again noted. Old right clavicular fracture is present as well as a left forearm opacity. Right basilar opacity persists. Linear left basilar opacity reflects atelectasis. IMPRESSION: 1. No pneumothorax following left thoracentesis. No residual left pleural fluid identified. 2. Persistent moderate to large right pleural effusion with associated airspace opacity. ACT 112: Negative or not required by law. Electronically signed by: Kalyan Martinez M.D. 11/25/2021 2:21 PM I & O Totals 24 Hours 11/24/21 11/25/21 11/26/21 06:59 06:59 06:59 Intake Total 910.000 / 910.000 410 / 410 Output Total 150 / 150 600 / 600 Balance 760.000 / 760.000 -190 / -190 Cumulative 11/24/21 10:00 thru 11/25/21 12:46 Intake Total 1320.000 Output Total 750 Balance 570.000 RT Ventilator Mngmt (Last Documented) Ventilator Ordered Settings Respiratory Rate 19 11/25/21 12:00 Ventilator - PT Measurements Respiratory Rate 19 PG Care Time/CCT Total # of Minutes Spent Total Time Spent with Patient: Total time spent is greater than 50% in coordination of care (as documented) at patient's floor/unit and/or counseling patient: 60 minutes Coding Level of Care Code 44186 Inpt Consult Level 5 Diagnoses Pleural effusion J90 Ribs, multiple fractures S22.49XA Hemothorax on left J94.2 Diastolic CHF, acute on chronic I50.33 PAD (peripheral artery disease) I73.9 Time Spent (min) 60
--- NOTE | 2021-11-25 14:57 | Procedure Note ---
Procedure Note Date of Service November 25, 2021 Note INDICATION: Acute hypoxia, recurrent bilateral pleural effusions PROCEDURE: Left-sided thoracentesis DATE: 11/25/2021 TIME: 1323 PROVIDER: Shade Cortez PA-C CONSENT: Was obtained prior to the procedure by Shade Cortez PA-C as delegated by Dr. Spaulding and placed on the chart PROCEDURE SUMMARY: Bedside ultra sound was performed to identify an appropriate puncture site. Images were saved to the Holidog/Pagido system. A time out was performed. The patient was prepped and draped in a sterile manner using chlorhexidine scrub after the appropriate level was confirmed by ultrasound. 1% lidocaine was used to numb the region. A finder needle was then used under negative pressure to locate fluid and instill lidocaine into the pleural space. A small incision was made with a #10 scalpel. A needle with overlying catheter was advanced using negative pressure on the syringe until a pleural flash was obtained. The thoracentesis catheter was then threaded without difficulty and without any bleeding. The patient had 2200 mL of bloody fluid removed. The blood did not coagulate in the bag or in the Vacutainer. There is no bleeding at the incision site. Blood pressure, pulse oximetry, heart rate were monitored every 3 minutes throughout the procedure with no significant change. Ultrasound was performed on the left side immediately following the procedure and showed good sliding lung and near resolution of pleural effusion. The incision site was then covered with two Band-Aids with no evidence of bleeding. No immediate complications were noted during the procedure. Dr. Spaulding and Dr. Wilson were contacted after the procedure with results. A post-procedure chest x-ray was completed and reviewed at bedside by this provider and no pneumothorax was identified. The patient tolerated the procedure well with no shortness of breath, no hypotension, no increase in heart rate, and no other acute symptoms. Coding CPT Codes Pulmonary/Thoracic - Pulmonary and Thoracic: 71694 Thoracentesis w imaging ([id number]) Pulmonary/Thoracic - Pulmonary and Thoracic: 28136 US, Chest, real time with imaging documentation ([id number]) [facility] [place]Charges) Pulmonary/Thoracic Procedure 1: Pulmonary and Thoracic: 67430 Thoracentesis w imaging Procedure 2: Pulmonary and Thoracic: 47392 US, Chest, real time with imaging documentation
[2021-11-25 18:12] LABS: Hematocrit (blood only) 30.4 % (42-52); Hemoglobin 9.9 g/dL (14.0-18.0)
--- NOTE | 2021-11-25 19:17 | Hospitalist Progress Note ---
Date of Service November 25, 2021 Assessment & Plan (1) Acute respiratory failure with hypoxia: Plan: Likely multifactorial - volume overload (effusions, etc) +/- pneumonia. Volume overload state likely due to acute/chronic diastolic CHF; cannot rule out cirrhosis contributing but unlikely. Tolerating IV Lasix 40mg daily thus far; gave another dose this am. s/p left-side thoracentesis today - 2200cc of bloody fluid -- concern for hemothorax in the setting of recent multiple Lsided rib fractures & plavix use. Pleural fluid HCT sent. Appreciate pulmonary assistance. s/p right-sided thoracentesis earlier this week. repeat cxr in am. cont pulmonary toilet. cont abx for now. NC O2 to keep sats >92%. (2) Bilateral pleural effusion: Plan: s/p thoracentesis on right - 11/23/21. 1400cc clear fluid removed. s/p thoracentesis on left today - 2200cc bloody fluid removed; concern for hemothorax (see #3 below). Has had numerous thoracentesis procedures in the past for diastolic CHF. Cont to diurese w/ IV lasix. (3) Hemothorax on left: Plan: appreciate pulmonary consultation. likely developed this in setting of trauma with 4 L-sided rib fractures and plavix use. hopefully the hemothorax does not reaccumulate and H/H remain stable. CXR in am. CBC in am. (4) Pneumonia: Plan: If present this is stable. Remains on cefepime/doxy - day #2 of such. Since patient was just hospitalized 3 weeks ago in [facility] will need to cover for gram negatives. Holding his chronic bactrim while on doxy (latter for atypical coverage). (5) Diastolic CHF, acute on chronic: Plan: echo with preserved LV and RV function. cont lasix 40mg IV daily for diastolic CHF. Labs in am. Noncompliance with lasix largely to blame. I can't rule out frequent Afib/Aflutter contributing to decompensated CHF. Cont beta pantera. (6) Coronary artery disease: Plan: No recent ischemic symptoms. Troponin negative. Cont asa, plavix, statin, beta pantera. (7) Cirrhosis: Plan: 2nd to RILEY? other? Previous EGD with esophageal varices. Could be contributing to volume overload but suspect most of the fluid issues are cardiac. (8) GERD (gastroesophageal reflux disease): Plan: Cont PPI. (9) Paroxysmal atrial fibrillation: Plan: Cont telemetry. Assess a.fib burden but thus far none seen. Cont BB. Is NOT on chronic anticoagulation. (10) Esophageal varices: Plan: No recent issues. Cont PPI. (11) Mobitz type 1 second degree AV block: Plan: Dr Sheffield's note from cardiology clinic suggests that the patient declined loop recorder implantation to assess PAF, AV block, etc. Telemetry while here. (12) Anemia: Plan: 2nd to blood loss from #3 above. can't rule out blood loss from recent PAD surgery on LLE. trend H/H. ferritin wnl, but transferrin-sat is only 5%. consider IV venofer while here. (13) PAD (peripheral artery disease): Plan: s/p LLE angioplasty with stenting. Just placed on plavix within the last few weeks. Continue asa + statin. (14) Chronic ulcer of great toe: Plan: b/l. wound care nurse consult appreciated for recs. (15) Candidiasis of mouth and esophagus: Plan: 2nd to chronic inhaled steroid use. Nystatin solution 5cc qid. (16) Chronic osteomyelitis: Plan: L hip. On bactrim prophylaxis. Hold while on doxycycline. (17) DVT prophylaxis: Plan: Hold chemical means due to left-sided hemothorax. ambulate. scds. (18) Ribs, multiple fractures: Plan: Left, 7-10. Lidoderm patches prn. Pain meds prn. Plan: patient is on chronic Breo - does he carry dx of COPD? COPD is not on pt's problem list. Cont for now but does need PFTs in future for definitive dx. updated by phone this evening Admission and Anticipated Discharge Date Admission Date: November 24, 2021 Subjective patient had L-sided thoracentesis today and 2200cc of bloody fluid was removed post-procedural cxr with nicely improved L hemithorax fluid sent for HCT he feels MUCH better - "I can actually move around without getting out of breath" he continues with mild left-sided rib pain eating still poor/fair no new complaints tele - NSR overnight Review of Systems Review of Systems: gen - no fever; mild fatigue; anorexia remains cv - left-sided chest wall pain related to rib Fx's and thoracentesis pulm - no cough; dyspnea improved GI - constipated but no N/V Physical Exam Physical Exam: gen - looks better today; no increased work of breathing neck - no JVD mouth - thrush plaques improving heart - RRR, s1 s2, no murmur lungs - decreased BS right base; no right-sided rales; anterior L chest with course, crackly BS; left basilar airation MUCH improved from yesterday; no wheezing abd - soft NT ND BS+ ext - no edema, pulses 1+ b/l, warm feet; b/l great toes in optifoams Results & Data Results & Data ([facility]) Vital Signs (Past 12 Hours) Vital Signs Temp Pulse Resp BP Pulse Ox 11/25/21 15:46 36.9 C 89 18 126/67 93 11/25/21 12:00 36.9 C 92 H 19 123/79 93 11/25/21 08:02 36.9 C 106 H 18 134/76 90 Laboratory Results Hb 9.9 this afternoon AM BMP wnl Diagnostic Findings cxr - post-thoracentesis - no PNx on left; right sided effusion PG Care Time/CCT Total # of Minutes Spent Total Time Spent with Patient: Total time spent is greater than 50% in coordination of care (as documented) at patient's floor/unit and/or counseling patient: Coding Level of Care Code 95026 Subseq Hosp Care Lvl 3 Diagnoses Acute respiratory failure with hypoxia J96.01 Bilateral pleural effusion J90 Pneumonia J18.9 Diastolic CHF, acute on chronic I50.33 Coronary artery disease I25.10 Associated angina: without angina Coronary Disease-Associated Artery/Lesion type: [place] artery [place] vs. transplanted heart: [place] heart Cirrhosis K74.60 GERD (gastroesophageal reflux disease) K21.9 Paroxysmal atrial fibrillation I48.0 Esophageal varices I85.00 Mobitz type 1 second degree AV block I44.1 Anemia D64.9 PAD (peripheral artery disease) I73.9 Chronic ulcer of great toe L97.509 Candidiasis of mouth and esophagus B37.81; B37.0 Chronic osteomyelitis M86.60 DVT prophylaxis Z29.9 Ribs, multiple fractures S22.49XA Hemothorax on left J94.2 (1) Coronary artery disease Associated angina: without angina Coronary Disease-Associated Artery/Lesion type: [place] artery [place] vs. transplanted heart: [place] heart Qualified Code(s): I25.10 - Atherosclerotic heart disease of [place] coronary artery without angina pectoris
[2021-11-25] MEDS ORDERED: LATANOPROST 0.005% OP SCH (21:00)
[2021-11-25] MEDS ORDERED: LATANOPROST 0.005% OP SOLN 2.5 ML BTL OP SCH (21:00)
[2021-11-25] MEDS: traZODone HCL 50 MG TAB PO SCH (22:06)
[2021-11-25] MEDS: FLUTICASONE/VILANTEROL 200/25MCG 14 PUFFS/INHALER INH SCH (22:07)
[2021-11-25] MEDS: TAMSULOSIN HCL 0.4 MG CAP PO SCH (22:07)
[2021-11-25] MEDS: OXYBUTYNIN CHLORIDE 5 MG TAB PO SCH (22:08)
[2021-11-25] MEDS: ASPIRIN 81 MG ECTAB PO SCH (22:08)
[2021-11-25] MEDS: CHLORZOXAZONE 500 MG TAB PO SCH (22:09)
[2021-11-26] MEDS: oxyCODONE/ACETAMINOPHEN 5mg/325mg TAB PO PRN ×4 (00:28→18:35)
[2021-11-26] MEDS: CEFEPIME 2,000 MG in SYRINGE 0 ML IV SCH ×2 (00:29→09:25)
[2021-11-26] MEDS: PANTOprazole 40 MG TAB PO SCH (05:22)
--- NOTE | 2021-11-26 07:52 | XRay Report ---
XR chest 1V portable CLINICAL HISTORY: Status post left thoracentesis. Follow-up right pleural effusion. COMPARISON STUDY: 11/25/2021 TECHNIQUE: 1 view of the chest FINDINGS: Single frontal view of the chest demonstrates the cardiomediastinal silhouette to be within normal li mits. Compared to previous examination, the patient is again status post left thoracentesis with no e vidence for pneumothorax. There is minimal crowding of the bronchovascular markings at the left lung base. Moderate size right pleural effusion is again seen with pleural fluid tracking along the lateral ches t wall. No confluent alveolar opacities are identified. There is no evidence for vascular congestion. There is no acute osseous pathology. IMPRESSION: 1. Moderate size right pleural effusion and right basilar atelectasis are again seen. 2. The patient is again status post left thoracentesis with no evidence for pneumothorax. ACT 112: Negative or not required by law. Electronically signed by: Wolf Woods M.D. 11/26/2021 7:51 AM
[2021-11-26 08:13] LABS: Hematocrit (blood only) 29.3 % (42-52); Hemoglobin 9.6 g/dL (14.0-18.0); Mean Corpuscular Hemoglobin 28.6 pg (25-34); Mean Corpuscular Hgb Conc 32.8 g/dL (32-36); Mean Corpuscular Volume 87.2 fL (80-100); Mean Platelet Volume 8.1 fL (7.4-10.4); Platelet Count 316 K/uL (130-400); RDW Coefficient of Variation 15.3 % (11.5-14.5); RDW Standard Deviation 48.3 fL (36.4-46.3); Red Blood Count 3.36 M/uL (4.7-6.1)
[2021-11-26] MEDS ORDERED: bisacodyL 5 MG TABEC PO ONE (08:22)
[2021-11-26 08:34] LABS: BUN Creatinine Ratio 22.2 (10-20); Calcium 8.2 mg/dl (8.5-10.1); Creatinine Clr Calc Pharmacy 102.5 ml/min; Est GFR (African American) 108.8 ml/min; Est GFR (Non-African American) 93.9 ml/min; Magnesium 1.9 mg/dl (1.7-2.4); Potassium 3.8 mmol/L (3.5-5.1)
[2021-11-26] MEDS: MULTIVITAMIN TAB PO SCH (08:55)
[2021-11-26] MEDS: CLOPIDOGREL BISULFATE 75 MG TAB PO SCH (08:56)
[2021-11-26] MEDS: CHOLECALCIFEROL 1,000 UNITS 25 MCG TAB PO SCH (08:56)
[2021-11-26] MEDS: ADVANCED PROBIOTIC 1250 MG CAPSULE PO SCH (08:56)
[2021-11-26] MEDS: GABAPENTIN 600 MG TAB PO SCH ×2 (08:57→13:30)
[2021-11-26] MEDS: ASCORBIC ACID 500 MG TAB PO SCH (08:57)
[2021-11-26] MEDS: ATORVASTATIN 40 MG TAB PO SCH (08:57)
[2021-11-26] MEDS: buPROPion HCl 100 MG TABLET PO SCH (08:57)
[2021-11-26] MEDS: METOPROLOL TARTRATE 25 MG TAB PO SCH (08:57)
[2021-11-26] MEDS: NYSTATIN SUSP 500,000 U/5 ML UDC PO SCH ×2 (08:58→13:30)
[2021-11-26] MEDS: FUROSEMIDE 40 MG/4 ML VIAL IV SCH (08:58)
[2021-11-26] MEDS: LIDOCAINE 5% 1 PATCH TD SCH (08:59)
[2021-11-26] MEDS: POLYETHYLENE (MIRALAX) 17 GM PACK PO SCH (08:59)
[2021-11-26] MEDS ORDERED: POTASSIUM CHLORIDE CRTAB 20 MEQ TABCR PO SCH (09:00)
[2021-11-26] MEDS: PREDNISOLONE ACETATE 1% OP SCH ×2 (09:01→13:31)
[2021-11-26] MEDS: POM - DORZOLAMIDE/TIMOLOL 22.3/6.8MG/ML 10 ML BTL OP SCH ×2 (09:02→13:31)
[2021-11-26] MEDS: BRIMONIDINE TARTRATE 0.2% 5ML OP SCH (09:03)
[2021-11-26] MEDS: DOXYCYCLINE HYCLATE 100 MG in DEXTROSE 5% 100 ML IV SCH (09:29)
--- NOTE | 2021-11-26 10:55 | Procedure Note ---
Procedure Note Date of Service November 26, 2021 Note Procedure: Diagnostic therapeutic ultrasound-guided catheter thoracentesis [employer]ing [employer] Operator: Dr. Galen Spaulding Indication: Recurrent pleural effusion Consent: Signed by patient and verified with timeout prior to procedure Anesthesia: 8 mL's 1% lidocaine without epinephrine local. Procedure: Consent was verified and timeout performed. Appropriate imaging studies were reviewed prior to the procedure. Patient was placed in a seated position and limited thoracic ultrasound was performed of the right chest. Small to moderate sized pleural effusion was noted with some compressive atelectasis. There was significant septations noted. Site appropriate for thoracentesis was selected. The skin was prepped and draped in normal sterile fashion. Lidocaine was used for local analgesia. Fluid was aspirated via the finder needle. A small skin lexie was made with the scalpel and the catheter over the needle apparatus was advanced over the rib into the pleural space. Using the syringe one-way valve system, a total of 1200mL's of bloodyfluid was removed. Procedure was terminated due to inability to withdraw any additional fluid and some chest pain. The catheter was removed and observed to be intact. A sterile dressing was applied. Post procedure chest x-ray was ordered. Fluid was not sent. The patient tolerated the procedure well without obvious complication Coding CPT Codes Pulmonary/Thoracic - Pulmonary and Thoracic: 39886 Thoracentesis w imaging ([id number]) [facility] [place]) Pulmonary/Thoracic Procedure 1: Pulmonary and Thoracic: 36098 Thoracentesis w imaging
--- NOTE | 2021-11-26 11:08 | Pulmonology Progress Note ---
Date of Service November 26, 2021 Assessment & Plan (1) Hemothorax: (2) Abnormal CT scan of lung: (3) Acute hypoxemic respiratory failure: Plan: Impression: 71-year-old male with history of transudate of pleural effusions multifactorial due to combinations of diastolic heart failure and potentially underlying liver disease. He underwent thoracentesis on Tuesday while being on Plavix. He has had a fall with rib fractures. He was confirmed to have a hemothorax on the left by thoracentesis yesterday. The right side was sampled today and is also consistent with a hemothorax. His hemoglobin continues to drop. His CT scan remains abnormal. Recommendations: 1. Bilateral pleural effusions: These appear to be consistent with hemothoraces bilaterally. The one on the left is likely related to Plavix associated with rib fractures. Unclear if the right is associated with the recent thoracentesis being done on Plavix. The right one did demonstrate some septations and appeared to be somewhat complex. Will follow-up with the post procedure chest x-ray and repeat chest x-ray in the morning. If the effusions reaccumulate, I think the patient will require evaluation by interventional radiology and/or thoracic surgery. Patient would like to go to the [facility] in [place] as that is where he gets the majority of his care. This was communicated to the patient's primary admitting service 2. Diastolic heart failure: Recommended continued blood pressure management. Should try and target blood pressures less than 125/65. Daily diuretics recommended. Salt restriction diet recommended. 3. Hypoxemia: The patient has supplemental oxygen at home. He can continue to use the oxygen to maintain oxygen saturation at or above 85%. 4. Abnormal CT scan: Patient's previous parenchymal opacities have significantly improved on the most recent CT scan. I am not suspicious of an underlying pneumonia and would favor adjusting antibiotics down to what ever he is on for his chronic osteomyelitis. 5. Anemia: The patient is losing blood into his bilateral hemithoraces. I would not recommend transfusion currently but if counts continue to decline, the patient should have additional intervention performed. See comments above. The above recommendations and plan were discussed with the patient and bedside clinical nurse and communicated to the hospitalist. Admission and Anticipated Discharge Date Admission Date: November 24, 2021 Subjective Patient feels better since thoracentesis yesterday. He is not have any chest pain or palpitations. No cough or sputum production Review of Systems Review of Systems: All systems reviewed & are unremarkable except as noted in Subjective Physical Exam Constitutional: + frail appearing No apparent distress Eyes: PERRL, conjunctivae normal, anicteric sclerae Respiratory: Diminished lung sounds on the right. No distress. Cardiovascular: Rate/Rhythm: regular rate and regular rhythm Heart Sounds: normal S1, normal S2 and + murmur Gastrointestinal (Abdomen): normal bowel sounds, soft, nontender, no hepatosplenomegaly Musculoskeletal: no cyanosis or clubbing, extremities motor strength 5/5 Neurologic: PERRL, EOMI, accommodation nl, no face palsy, no dysarthria Psychiatric: A+Ox3, euthymic affect Results & Data Results & Data ([facility]) Vital Signs (Past 12 Hours) Vital Signs Temp Pulse Resp BP Pulse Ox 11/26/21 08:23 36.7 C 91 H 19 120/66 96 11/26/21 03:22 36.9 C 84 18 110/69 95 11/25/21 23:20 36.9 C 85 18 102/66 93 Laboratory Results 11/26/21 07:55 11/26/21 07:55 Diagnostic Findings Post thoracentesis film demonstrated near complete evacuation of the hemothorax on the left however the film this morning does show some slight blunting of the costophrenic angle. The effusion on the right appears unchanged. PG Care Time/CCT Total # of Minutes Spent Total Time Spent with Patient: Total time spent is greater than 50% in coordination of care (as documented) at patient's floor/unit and/or counseling patient: Coding Level of Care Code 85604 Subseq Hosp Care Lvl 3 Diagnoses Hemothorax J94.[address] scan of lung R91.8 Acute hypoxemic respiratory failure J96.01
--- NOTE | 2021-11-26 11:56 | XRay Report ---
XR chest 1V portable at 10:55 AM CLINICAL HISTORY: post R thoracentesis. COMPARISON STUDY: 11/26/2021 at 6:28 AM TECHNIQUE: 1 view of the chest FINDINGS: Single frontal view of the chest demonstrates the cardiomediastinal silhouette to be within normal li mits. The patient is status post right thoracentesis with interval decrease in right pleural effusion . There is still evidence for right pleural effusion with loculated fluid along the lateral chest wal l having a nodular appearance. Right lower lobe and right middle lobe atelectasis are again seen. The re is no evidence for pneumothorax. There is crowding the bronchovascular markings at the left lung base with no definite recurrent left pleural effusion or left-sided pneumothorax. No confluent alveolar opacities are seen. There is no ev idence for vascular congestion. There is no acute osseous pathology. IMPRESSION: 1. Status post interval right thoracentesis with residual pleural fluid present as described above. 2. There is also persistent right lower lobe and right middle lobe atelectasis. 3. There is no evidence for pneumothorax. 4. No change at the left lung base. ACT 112: Negative or not required by law. Electronically signed by: Wolf Woods M.D. 11/26/2021 11:55 AM
--- NOTE | 2021-11-26 12:25 | Hospitalist Progress Note ---
Date of Service November 26, 2021 Assessment & Plan (1) Acute respiratory failure with hypoxia: Plan: Likely multifactorial - volume overload (effusions, etc) +/- pneumonia. Volume overload state likely due to acute/chronic diastolic CHF. His chronic effusions then became hemothoraces. Has received IV lasix since admission - Na trending down today, may be intravascularly dry - hold lasix in am. s/p left-side thoracentesis 11/25 - 2200cc of bloody fluid -- c/w hemothorax in the setting of recent multiple L-sided rib fractures & plavix use. Pleural fluid HCT 7. Pleural fluid HCT / serum HCT ratio >50% s/p right-sided thoracentesis earlier this week on 11/23. Clear fluid, 1400cc, presumed transudative. s/p right-sided thoracentesis again today - 1200cc, bloody. Did patient have bleeding into the pleural space after 11/23 tap leading to the bloody effusion today? repeat cxr post-thoracentesis today still with moderate effusion concerning for loculated fluid. Dr Spaulding advising transfer to tertiary care for thoracic surgery consultation. ?need for VATS? [facility] advised holding plavix. (2) Bilateral pleural effusion: Plan: s/p thoracentesis on right - 11/23/21. 1400cc clear fluid removed. s/p thoracentesis on left 11/25/21 - 2200cc bloody fluid removed c/w hemothorax. s/p thoracentesis on right 11/26/21 - 1200cc blood fluid removed. Has had numerous thoracentesis procedures in the past for diastolic CHF. Tx [facility] for thoracic surgery consultation. (3) Hemothorax on left: Plan: appreciate pulmonary consultation. likely developed this in setting of trauma with 4 L-sided rib fractures and plavix use. fall was on 11/09/21. hopefully the hemothorax does not reaccumulate. H/H relatively stable today. (4) Pneumonia: Plan: question of. stop cefepime; continue with doxy. day #3; continue for full 7 days. Holding his chronic bactrim while on doxy (latter for atypical coverage). (5) Diastolic CHF, acute on chronic: Plan: echo with preserved LV and RV function. hold lasix after today'sdose. Noncompliance with lasix largely to blame. I can't rule out frequent Afib/Aflutter contributing to decompensated CHF. Cont beta pantera. (6) Coronary artery disease: Plan: No recent ischemic symptoms. Troponin negative. Cont asa, plavix, statin, beta pantera. (7) Cirrhosis: Plan: Previous EGD with esophageal varices. However, liver CT 09/2021 did not show cirrhotic change. (8) GERD (gastroesophageal reflux disease): Plan: Cont PPI. (9) Paroxysmal atrial fibrillation: Plan: Cont telemetry. thus far no PAF seen. Cont BB. Is NOT on chronic anticoagulation. (10) Esophageal varices: Plan: No recent issues. Cont PPI. (11) Mobitz type 1 second degree AV block: Plan: Dr Sheffield's note from cardiology clinic suggests that the patient declined loop recorder implantation to assess PAF, AV block, etc. Telemetry while here. (12) Anemia: Plan: 2nd to blood loss from #3 above. can't rule out blood loss from recent PAD surgery on LLE. trend H/H. ferritin wnl, but transferrin-sat is only 5%. consider IV venofer. (13) PAD (peripheral artery disease): Plan: s/p LLE angioplasty with stenting. Just placed on plavix within the last few weeks. May have to hold due to hemothoraces. Continue asa + statin. (14) Chronic ulcer of great toe: Plan: b/l. wound care nurse consult appreciated for recs. doxy should cover R great toe if any infection present. (15) Candidiasis of mouth and esophagus: Plan: 2nd to chronic inhaled steroid use. improved. cont Nystatin solution 5cc qid. (16) Chronic osteomyelitis: Plan: L hip. On bactrim prophylaxis. Hold while on doxycycline. CT abd/pelvis on 11/09 shows fluid in expected location of L hip joint. (17) DVT prophylaxis: Plan: Holding chemical means due to left-sided hemothorax. (18) Ribs, multiple fractures: Plan: Left, 7-10. Lidoderm patches prn. Pain meds prn. Plan: patient accepted in transfer to [facility]. accepting attending physician - Dr Kar Arnold. transfer to occur in order to obtain thoracic surgery consultation. ?need for VATS. left message for ~1700 on 11/26/21. Admission and Anticipated Discharge Date Admission Date: November 24, 2021 Subjective pt underwent thoracentesis on right side today by Dr Spaulding 1200cc of bloody fluid was pulled post-thoracentesis cxr did not show pneumothorax but continues to show ongoing effusion Dr Spaulding has advised transfer to tertiary care with thoracic surgery capability for consideration of VATS procedure on the right tele overnight wnl Physical Exam Physical Exam: gen - NAD, comfortable neck - no JVD mouth - thrush plaques nearly resolved heart - RRR, s1 s2, no murmur lungs - decreased BS right base; no right-sided rales; left base clear/good airation; no wheezing; no increased work of breathing abd - soft NT ND BS+ ext - no edema, pulses 1+ b/l, warm feet skin - optifoams removed from both great toes - R great toe with black eschar; linear ulceration with scant purulent discharge; mild erythema covering most of the toe; left great toe - black eschar, no erythema or drainage Results & Data Results & Data ([facility]) Vital Signs (Past 12 Hours) Vital Signs Temp Pulse Resp BP Pulse Ox 11/26/21 12:11 36.7 C 76 18 127/78 97 11/26/21 08:23 36.7 C 91 H 19 120/66 96 11/26/21 03:22 36.9 C 84 18 110/69 95 Laboratory Results Laboratory Results - last 24 hr 11/25/21 11/25/21 11/26/21 14:00 17:42 07:55 WBC RBC Hgb 9.9 L Hct 30.4 L MCV MCH MCHC RDW Std Deviation RDW Coeff of Timbo Plt Count MPV Sodium 132 L Potassium 3.8 Chloride 102 Carbon Dioxide 22 Anion Gap 8 BUN 16 Creatinine 0.72 Est Cr Clr Drug Dosing 102.5 Est GFR ( Amer) 108.8 Est GFR (Non-Af Amer) 93.9 BUN/Creatinine Ratio 22.2 H Glucose 132 H Calcium 8.2 L Magnesium 1.9 SARS-CoV-2, RNA, NAAT Ref Lab Test Result 11/26/21 11/26/21 07:55 15:05 WBC 8.70 RBC 3.36 L Hgb 9.6 L Hct 29.3 L MCV 87.2 MCH 28.6 MCHC 32.8 RDW Std Deviation 48.3 H RDW Coeff of Timbo 15.3 H Plt Count 316 MPV 8.1 Sodium Potassium Chloride Carbon Dioxide Anion Gap BUN Creatinine Est Cr Clr Drug Dosing Est GFR ( Amer) Est GFR (Non-Af Amer) BUN/Creatinine Ratio Glucose Calcium Magnesium SARS-CoV-2, RNA, NAAT NEGATIVE Ref Lab Test Result PG Care Time/CCT Total # of Minutes Spent Total Time Spent with Patient: Total time spent is greater than 50% in coordination of care (as documented) at patient's floor/unit and/or counseling patient: Coding Level of Care Code None Diagnoses Acute respiratory failure with hypoxia J96.01 Bilateral pleural effusion J90 Hemothorax on left J94.2 Pneumonia J18.9 Diastolic CHF, acute on chronic I50.33 Coronary artery disease I25.10 Associated angina: without angina Coronary Disease-Associated Artery/Lesion type: [place] artery [place] vs. transplanted heart: [place] heart Cirrhosis K74.60 GERD (gastroesophageal reflux disease) K21.9 Paroxysmal atrial fibrillation I48.0 Esophageal varices I85.00 Mobitz type 1 second degree AV block I44.1 Anemia D64.9 PAD (peripheral artery disease) I73.9 Chronic ulcer of great toe L97.509 Candidiasis of mouth and esophagus B37.81; B37.0 Chronic osteomyelitis M86.60 DVT prophylaxis Z29.9 Ribs, multiple fractures S22.49XA (1) Coronary artery disease Associated angina: without angina Coronary Disease-Associated Artery/Lesion type: [place] artery [place] vs. transplanted heart: [place] heart Qualified Code(s): I25.10 - Atherosclerotic heart disease of [place] coronary artery without angina pectoris
--- NOTE | 2021-11-26 17:23 | Discharge Summary ---
Date of Service date of admission - November 24, 2021 date of discharge - November 26, 2021 Admission HPI Per Admitting Provider 71yo male with history of chronic diastolic CHF, ?cirrhosis with esophageal varices, h/o afib/flutter, h/o COVID-19 pneumonia in 2020 chronic bilateral pleural effusions - presents with ongoing dyspnea starting last . Symptoms came on slowly. Dyspnea is mainly with activity. Just walking a few steps now leads to dyspnea. Over the last few days he has been sleeping in a recliner due to the breathing/orthopnea. No cough. Poor appetite since . Denies LE edema. Denies abdominal swelling. Denies significant weight changes. No fevers. 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 He has been to [place] at least 15 times in the past few years, but 3 times in the last 1-2 weeks. He did take his lasix last pm and this am, however. It sounds as if he had angioplasty with stents in his LLE about 3 weeks ago at the [facility], operated by [facility]. He spent 1 night in the hospital then. He is scheduled to go back to [facility] on December 02. He also sees ophtho at the [facility], operated [facility] for corneal transplant of the L eye. He is not using home oxygen. Records show he was seen in the ER yesterday. Has right sided thoracentesis by Dr Spaulding - 1400cc of fluid was removed. Discharged to home following that procedure. Principal Diagnosis 1. acute hypoxic respiratory failure 2nd to b/l pleural effusions/volume overload 2. bilateral hemothoraces - left 2nd to trauma from a fall on 11/09/21; right possibly due to recent thoracentesis (11/23/21) in setting of asa/plavix use Discharge Exam gen - NAD, comfortable neck - no JVD mouth - thrush plaques nearly resolved heart - RRR, s1 s2, no murmur lungs - decreased BS right base; no right-sided rales; left base clear/good airation; no wheezing; no increased work of breathing abd - soft NT ND BS+ ext - no edema, pulses 1+ b/l, warm feet skin - optifoams removed from both great toes - R great toe with black eschar; linear ulceration with scant purulent discharge; mild erythema covering most of the toe; left great toe - black eschar, no erythema or drainage Discharge Data Allergies Allergy/AdvReac Type Severity Reaction Status Date / Time No Known Allergies Allergy Unknown Verified 11/24/21 12:35 Consultations [facility] - Dr Lefty Spaulding Wound Care Nurse Team Procedures Performed 1. left-sided thoracentesis - 11/25/21 2. right-sided thoracentesis - 11/26/21 3. echocardiogram - EF 60-65%; normal RV function; grade 1 diastolic dysfunction; intact valve function Ordered Studies 11/25/21 13:12 US point of care ultrasound Routine 11/26/21 10:21 US point of care ultrasound Routine Chest X-Ray 11/24/21 11:06 XR chest 1V portable CLINICAL HISTORY: Atypical chest pain TECHNIQUE: Single frontal radiograph of the chest was obtained. Comparison: Comparison is made to chest one view 11/23/2021 FINDINGS: No lines and tubes are seen. The cardiomediastinal silhouette is normal. Bilateral lower lung predominant airspace opacities are seen. Bilateral pleural effusions are seen. IMPRESSION: Bilateral lower lung predominant airspace opacities which may represent atelectasis, pneumonia, and/or aspiration. Bilateral pleural effusions are seen. Overall findings are similar to prior exam. Previously noted pulmonary edema is less conspicuous. ACT 112: Negative or not required by law. Electronically signed by: Greg Squires M.D. 11/24/2021 11:[address] 11/24/21 12:58 CT SCAN OF THE CHEST WITH IV CONTRAST CLINICAL HISTORY: Dyspnea. COMPARISON STUDY: Chest x-ray dated 11/24/2021. Chest CT dated 11/09/2021. TECHNIQUE: Following the IV administration of 93 cc of Optiray 320, CT scan of the thorax was performed from the thoracic inlet to the upper abdomen. Images are reviewed in the axial, sagittal, and coronal planes. IV contrast was administered without complication. A dose lowering technique was utilized adhering to the principles of ALARA. CT DOSE: 308.36 mGy.cm FINDINGS: Thyroid: Imaged portions of the thyroid gland are normal in size and attenuation. Thoracic aorta: There is atherosclerotic calcification of the thoracic aorta, which is normal in caliber and demonstrates standard 3-vessel arch anatomy. No dissection is seen. Pulmonary vasculature: The main pulmonary arteries appear dilated suggesting pulmonary artery hypertension. There are no filling defects identified in the central pulmonary vessels to indicate pulmonary embolus. Note that this examination was not protocoled for evaluation of the pulmonary arteries. Heart: The heart is mildly enlarged noting trace pericardial effusion. The coronary arteries are densely calcified. Lungs and pleural spaces: Evaluation of the lung parenchyma is significantly degraded by motion artifact. A fat-containing Bochdalek hernia is noted on the right. There are moderate to large bilateral pleural effusions, left larger than right with associated consolidation. The left pleural effusion has significantly increased in size as compared to 11/09/2021. The right pleural effusion has modestly decreased in size, and now contains complex debris. This is new from previous. Foci of parenchymal scarring are seen throughout both lungs. A 4 cm ovoid density in the right middle lobe is unchanged and likely represents round atelectasis. Patchy groundglass opacities are noted in both lungs, right greater than left. The trachea and central airways are clear. No pneumothorax is seen. Mediastinum: There is mild rightward shift of mediastinum. There are numerous subcentimeter mediastinal lymph nodes. An: Clear. Axillae: There is no axillary lymphadenopathy. Upper abdomen: Partially visualized upper abdominal viscera is grossly unremarkable. Skeletal structures: The skeletal structures are osteopenic. No lytic or blastic lesions are identified. A left shoulder arthroplasty is in place. There is chronic posttraumatic deformity of the right clavicle. Degenerative change is noted in the right shoulder with associated bursal fluid. There are numerous chronic/healed bilateral rib fractures. There are subcutaneous nondisplaced fractures of the left lateral 7th and 8th ribs, as well as the posterior left 8th through 10th ribs. Spondylotic change is seen throughout the thoracic spine. Soft tissues: Gynecomastia is noted. IMPRESSION: 1. There are moderate to large bilateral pleural effusions, left larger than right with associated consolidation. The left pleural effusion has significantly increased in size from 11/09/2021. 2. The right pleural effusion has modestly decreased in size from previous and now contains complex internal debris. This may represent blood clots and clinical correlation will be required. 3. Subacute left-sided rib fractures are again noted. 4. Cardiomegaly. 5. Patchy opacities are present in both lungs, right greater than left. Correlate clinically for evidence of an infectious/inflammatory pneumonitis. 6. Additional findings as above. ACT 112: Negative or not required by law. Electronically signed by: Shade Guerin M.D. 11/24/2021 1:37 PM Chest X-Ray 11/25/21 13:53 XR chest 1V portable CLINICAL HISTORY: s/p left thoracentesis COMPARISON STUDY: Chest radiograph and chest CT January 24, 2022. FINDINGS: There is no pneumothorax following left thoracentesis. No significant residual left pleural fluid is present. Multiple left-sided rib fractures are better depicted on prior chest CT. A moderate to large right pleural effusion is again noted. Old right clavicular fracture is present as well as a left forearm opacity. Right basilar opacity persists. Linear left basilar opacity reflects atelectasis. IMPRESSION: 1. No pneumothorax following left thoracentesis. No residual left pleural fluid identified. 2. Persistent moderate to large right pleural effusion with associated airspace opacity. ACT 112: Negative or not required by law. Electronically signed by: Kalyan Martinez M.D. 11/25/2021 2:21 PM Chest X-Ray 11/26/21 07:00 XR chest 1V portable CLINICAL HISTORY: Status post left thoracentesis. Follow-up right pleural effusion. COMPARISON STUDY: 11/25/2021 TECHNIQUE: 1 view of the chest FINDINGS: Single frontal view of the chest demonstrates the cardiomediastinal silhouette to be within normal limits. Compared to previous examination, the patient is again status post left thoracentesis with no evidence for pneumothorax. There is minimal crowding of the bronchovascular markings at the left lung base. Moderate size right pleural effusion is again seen with pleural fluid tracking along the lateral chest wall. No confluent alveolar opacities are identified. There is no evidence for vascular congestion. There is no acute osseous pathology. IMPRESSION: 1. Moderate size right pleural effusion and right basilar atelectasis are again seen. 2. The patient is again status post left thoracentesis with no evidence for pneumothorax. ACT 112: Negative or not required by law. Electronically signed by: Wlof Woods M.D. 11/26/2021 7:51 AM Chest X-Ray 11/26/21 10:57 XR chest 1V portable at 10:55 AM CLINICAL HISTORY: post R thoracentesis. COMPARISON STUDY: 11/26/2021 at 6:28 AM TECHNIQUE: 1 view of the chest FINDINGS: Single frontal view of the chest demonstrates the cardiomediastinal silhouette to be within normal limits. The patient is status post right thoracentesis with interval decrease in right pleural effusion. There is still evidence for right pleural effusion with loculated fluid along the lateral chest wall having a nodular appearance. Right lower lobe and right middle lobe atelectasis are again seen. There is no evidence for pneumothorax. There is crowding the bronchovascular markings at the left lung base with no definite recurrent left pleural effusion or left-sided pneumothorax. No confluent alveolar opacities are seen. There is no evidence for vascular congestion. There is no acute osseous pathology. IMPRESSION: 1. Status post interval right thoracentesis with residual pleural fluid present as described above. 2. There is also persistent right lower lobe and right middle lobe atelectasis. 3. There is no evidence for pneumothorax. 4. No change at the left lung base. ACT 112: Negative or not required by law. Electronically signed by: Wolf Woods M.D. 11/26/2021 11:55 AM Hospital Course (1) Acute respiratory failure with hypoxia: Upon presentation he had evidence of volume overload as evidenced by b/l pleural effusions and suspected pulmonary edema. He has known diastolic CHF. He was initiated on IV lasix and pulmonary was consulted for management of his pleural effusions. He did have good diuresis during his stay. On 11/25/21 he underwent a left-sided thoracentesis. This yielded 2200cc of bloo dy fluid. Pleural fluid HCT was 7. It was suspected that the bloody effusion/hemothorax was due to his 11/09/21 fall that led to multiple rib fractures. Subsequent chest x-rays did not show reaccumulation of pleural fluid on the left following the left-sided thoracentesis. Of note - the patient had an ER visit on 11/23/21 due to dyspnea. He underwent a right-sided thoracentesis yielding 1400cc of clear fluid presumed to be transudative. He was discharged to home since he was improved symptomatically. However, he returned to the hospital on 11/24/21 for recurrent dyspnea. Imaging on 11/24/21 showed that his right-sided effusion had grown in size. On 11/26/21 the patient underwent another thoracentesis on the right side. This yield 1200cc of bloody pleural fluid. It was suspected that the reason for the change in the effusion from 11/24 to 11/26 was possibly iatrogenic - ie the thoracentesis on 11/24 in the setting of aspirin/plavix may have caused bleeding. Following his 11/26 right-sided thoracentesis a repeat chest x-ray still showed considerable pleural effusion. Due to the persistent nature of the right-sided effusion and concern for possible loculations, [facility] advised potential transfer to a tertiary care center for thoracic surgery consultation. The patient requested transfer to the [facility] due to his status and prior relationship with that institution. I called and spoke with on-call thoracic surgery as well as Dr Kar Arnold from the hospitalist team. Dr Arnold accepted Mr Saunders in transfer to the [facility] for thoracic surgery consultation and ongoing care. (2) Bilateral pleural effusion: s/p thoracentesis on right - 11/23/21. 1400cc clear fluid removed. This was done during an ER visit. s/p thoracentesis on left 11/25/21 - 2200cc bloody fluid removed c/w hemothorax. s/p thoracentesis on right 11/26/21 - 1200cc bloody fluid removed. Post- thoracentesis cxr showed a moderate amount of residual pleural fluid on the right. The left lung remained clear. No pneumothorax. The patient has had numerous thoracentesis procedures in the past for diastolic CHF/transudative effusions. I suspect that prior to his fall on 11/09/21 his effusions were largely transudative in nature from his chronic diastolic CHF. The trauma to the left chest from the fall, however, then led to the development of his left-sided hemothorax. As for the right-sided pleural effusion, given the persistent nature of it, it remains to be seen if he will need VATS procedure or other intervention to prevent further reaccumulation. Patient is transferring to the [facility], [facility] for consultation with thoracic surgery. (3) Hemothorax on left: Likely developed this in setting of trauma with 4 Left-sided rib fractures and plavix use. Fall was on 11/09/21. s/p thoracentesis on 11/25/21. Patient had a ~3gram drop in hemoglobin from 11/09/21 to 11/26/21. (4) Pneumonia: question of. Received 3 days of IV cefepime with doxycycline while here. Plan was to stop the cefepime and continue the doxycycline for a total of 7 days. His chronic bactrim was on hold while taking doxycycline. (5) Diastolic CHF, acute on chronic: 2D echo this admission showed preserved LV and RV function along with grade 1 diastolic dysfunction. He received 3 days of IV lasix. With the exception of the residual right-sided pleural effusion he otherwise appears relatively compensated on day of discharge. Plan for 11/27/21 was to stop the IV lasix and follow his volume status carefully. Patient was honest about his noncompliance with lasix at home. He alluded to not taking his lasix for several weeks prior to this admission. I suspect this noncompliance led to his decompensated CHF. I can't rule out frequent Afib/Aflutter contributing to decompensated CHF but no PAF was seen on monitors while here. Cont beta pantera as previous. (6) Coronary artery disease: No recent ischemic symptoms. Troponin negative. Holding asa, plavix due to #2 above. Resume both at the earliest time deemed to be safe. Continue statin, beta pantera. (7) Cirrhosis: Previous EGD with esophageal varices. However, liver CT 09/2021 did not show cirrhotic change. This diagnosis is in question. he should f/u with [facility] in the future. (8) GERD (gastroesophageal reflux disease): Cont PPI. (9) Paroxysmal atrial fibrillation: no PAF was seen while hospitalized. Cont BB. Patient is NOT on chronic anticoagulation. (10) Esophageal varices: No recent issues. Cont PPI. (11) Mobitz type 1 second degree AV block: History of. Does follow with electrophysiology at [facility] - Dr Alexx Sheffield. No AV block seen while here. (12) Anemia: 2nd to blood loss from #3 above. discharge hemoglobin was 9.6. hemoglobin on 11/09/21 was 12.4 (day of his fall and discovery of rib fractures). ferritin wnl, but transferrin-sat was only 5% on iron studies. consider IV venofer. (13) PAD (peripheral artery disease): s/p LLE angioplasty with stenting (per his recollection) at the [facility] within the last month. Just placed on plavix within the last few weeks following the stenting. Should hold due to hemothoraces. Consider holding aspirin as well. Continue statin. (14) Chronic ulcer of great toe: b/l. wound care nurse was consulted for management. optifoam dressings were utilized. Question of superimposed cellulitis of the R great toe on day of discharge. Doxycycline for possible pneumonia will cover MRSA; consider addition of strep coverage with PCN or cephalosporin. (15) Candidiasis of mouth and esophagus: 2nd to chronic inhaled steroid use. improved. cont Nystatin solution 5cc qid. (16) Chronic osteomyelitis: L hip. 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 Previous imaging of the hip (11/09/21 CT of the abd/pelvis) showed fluid in the expected location of the femoral head likely due to chronic osteo. He typically takes bactrim prophylaxis for this issue. The bactrim was held while on doxycycline. (17) DVT prophylaxis: Held chemical means due to left-sided hemothorax. (18) Ribs, multiple fractures: Left, 7-10. Lidoderm patches prn. Pain meds prn. Due to fall on 11/09/21. patient accepted in transfer to [facility]. accepting attending physician - Dr Kar Arnold. transfer necessary to obtain thoracic surgery consultation. ?need for VATS or other procedure of right pleural effusion. I would like to thank Dr Kar Arnold for accepting Mr Saunders in transfer to the [facility] for ongoing care. Total Time Total Time Spent Total Time Spent (In Minutes): 90 Discharge Plan Discharge Items Patient Disposition: Transfer Acute Care Hospital Reason For Visit: ACUTE HYPOXIC RESPIRATORY FAILURE Discharge Diagnosis: Bilateral Pleural Effusions Acute hypoxic respiratory failure Acute/chronic diastolic CHF Left-sided rib fractures 2nd fall on 11/09/21 Activity: As commented below Activity Comment: as tolerated Non-emergency contact: Primary Care Provider and Senior Product Engineer Call non-emergency contact if: you have any medication questions Follow-up/Referrals: Rayo Jordan DO [Primary Care Provider] - Diet: Heart Healthy Addtl Attending Provider Instructions: Further instructions to follow after your stay at the [facility]. Pending Studies at Discharge: No Stand-Alone Forms: My [facility] Skilled Items Patient informed of condition?: Yes DNR: No Discharge Level of Care: Other Communicable Disease: No Discharge Prognosis: Stable Lines: Peripheral IV Urinary Catheter: No Medications and DC Order Prescriptions: New latanoprost 0.005 % Drops 1 drp ophthalmic (eye) HS Qty: 1 RF: 0 nystatin 100,000 unit/mL Suspension 5 ml PO QID 10 Days Qty: 200 RF: 0 doxycycline hyclate 100 mg Capsule 100 mg PO BID Qty: 20 RF: 0 prednisolone acetate 1 % Drops,Suspension 1 drp ophthalmic (eye) TID Qty: 1 RF: 0 brimonidine 0.2 % Drops 1 drp ophthalmic (eye) BID Qty: 1 RF: 0 dorzolamide-timolol 22.3-6.8 mg/mL Drops 1 drp ophthalmic (eye) TID Qty: 1 RF: 0 Continued oxycodone-acetaminophen [Percocet] 5-325 mg tablet 1 tab PO Q6H PRN (Reason: pain) Qty: 60 RF: 0 gabapentin 300 mg capsule 600 mg PO TID Qty: 180 RF: 0 oxycodone-acetaminophen [Percocet] 5-325 mg tablet 1 tab PO Q6H PRN (Reason: pain) Qty: 60 RF: 0 cholecalciferol (vitamin D3) 50 mcg (2,000 unit) capsule 50 mcg PO QAM RF: 0 lidocaine [Lidoderm] 5 % adhesive patch,medicated 1 patch topical DAILY PRN (Reason: Pain) RF: 0 oxybutynin chloride 5 mg tablet 5 mg PO HS RF: 0 furosemide [Lasix] 40 mg tablet 40 mg PO BID Qty: 60 RF: 2 glucosamine-chondroitin [Osteo Bi-Flex] 250-200 mg tablet 1 tab PO BID RF: 0 nooykxx-ktejpnjas-khjb 333-133-5 mg tablet 1 tab PO HS RF: 0 ascorbic acid (vitamin C) [Vitamin C] 500 mg Tablet 500 mg PO QAM RF: 0 tamsulosin [Flomax] 0.4 mg Capsule 0.4 mg PO QPM RF: 0 bupropion HCl 100 mg tablet 100 mg PO BID RF: 0 pantoprazole 40 mg tablet,delayed release (DR/EC) 40 mg PO QAM RF: 0 chlorzoxazone 500 mg tablet 750 mg PO HS RF: 0 multivitamin Tablet 1 tab PO QAM RF: 0 trazodone 150 mg Tablet 150 mg PO HS RF: 0 omega 4-owm-egz-fish oil [Fish Oil] 1,200 (144-216) mg Capsule 1 cap PO QAM RF: 0 metoprolol tartrate 50 mg Tablet 25 mg PO BID RF: 0 atorvastatin 40 mg tablet 40 mg PO QAM RF: 0 Breo Ellipta 100-25 mcg/dose blister with device 1 inh inhalation BID RF: 0 ferrous sulfate 325 mg (65 mg iron) Tablet 325 mg PO QAM RF: 0 sulfamethoxazole-trimethoprim [Bactrim DS] 800-160 mg Tablet 1 tab PO Q12H Qty: 0 RF: 0 Discontinued celecoxib [Celebrex] 100 mg capsule 100 mg PO BID Qty: 60 RF: 2 aspirin 81 mg tablet,delayed release (DR/EC) 81 mg PO HS RF: 0 alendronate 70 mg Tablet 70 mg PO WK RF: 0 clopidogrel [Plavix] 75 mg Tablet 75 mg PO DAILY RF: 0 Discharge Orders: Discharge Order (Routine); Ordered 11/26/21 Ordered By: Doron Wilson Admission Data Admit Date/Time: 11/24/21 14:25 Attending Provider: Doron Wilson Admit Provider: Doron Wilson Primary Care Provider: Rayo Jordan Other Providers: Doron Wilson ; Galen Spaulding ; [facility] Coding Level of Care Code D/C DAY MANAGEMENT >30 MINS Diagnoses Acute respiratory failure with hypoxia J96.01 Bilateral pleural effusion J90 Hemothorax on left J94.2 Pneumonia J18.9 Diastolic CHF, acute on chronic I50.33 Coronary artery disease I25.10 Associated angina: without angina Coronary Disease-Associated Artery/Lesion type: [place] artery [place] vs. transplanted heart: [place] heart Cirrhosis K74.60 GERD (gastroesophageal reflux disease) K21.9 Paroxysmal atrial fibrillation I48.0 Esophageal varices I85.00 Mobitz type 1 second degree AV block I44.1 Anemia D64.9 PAD (peripheral artery disease) I73.9 Chronic ulcer of great toe L97.509 Candidiasis of mouth and esophagus B37.81; B37.0 Chronic osteomyelitis M86.60 DVT prophylaxis Z29.9 Ribs, multiple fractures S22.49XA
[2021-11-26] MEDS ORDERED: DOXYCYCLINE HYCLATE 100 MG CAP PO SCH (21:00)
== END 2021-11-26 18:50 | disposition short-term general hospital (02) | DRG 291 ==
LOC: ED 10:17 → 2S 14:25
DX: I50.33 Acute on chronic diastolic (congestive) heart failure; J90 Pleural effusion, not elsewhere classified; Z86.73 Personal history of transient ischemic attack (TIA), and cerebral infarction without residual deficits; L97.519 Non-pressure chronic ulcer of other part of right foot with unspecified severity; S22.42XA Multiple fractures of ribs, left side, initial encounter for closed fracture; D64.9 Anemia, unspecified; Z96.612 Presence of left artificial shoulder joint; M81.0 Age-related osteoporosis without current pathological fracture; Z98.41 Cataract extraction status, right eye; Z86.16 Personal history of COVID-19; I73.9 Peripheral vascular disease, unspecified; Z98.1 Arthrodesis status; Z96.642 Presence of left artificial hip joint; I48.0 Paroxysmal atrial fibrillation; Z95.820 Peripheral vascular angioplasty status with implants and grafts; Z98.42 Cataract extraction status, left eye; I25.10 Atherosclerotic heart disease of native coronary artery without angina pectoris; G25.81 Restless legs syndrome; J44.9 Chronic obstructive pulmonary disease, unspecified; J98.11 Atelectasis; S27.1XXA Traumatic hemothorax, initial encounter; M86.60 Other chronic osteomyelitis, unspecified site; K50.90 Crohn's disease, unspecified, without complications; Z87.11 Personal history of peptic ulcer disease; H91.92 Unspecified hearing loss, left ear; F32.A Depression, unspecified; H40.9 Unspecified glaucoma; I48.92 Unspecified atrial flutter; L97.529 Non-pressure chronic ulcer of other part of left foot with unspecified severity; I44.1 Atrioventricular block, second degree; I85.00 Esophageal varices without bleeding; W19.XXXA Unspecified fall, initial encounter; E78.5 Hyperlipidemia, unspecified; J96.21 Acute and chronic respiratory failure with hypoxia; B37.81 Candidal esophagitis; Z79.82 Long term (current) use of aspirin; J18.9 Pneumonia, unspecified organism; K21.9 Gastro-esophageal reflux disease without esophagitis; Z87.891 Personal history of nicotine dependence; F41.9 Anxiety disorder, unspecified; Z91.14 Patient's other noncompliance with medication regimen; M19.90 Unspecified osteoarthritis, unspecified site; Z90.09 Acquired absence of other part of head and neck; G89.29 Other chronic pain

== ENCOUNTER 2022-03-08 19:49 | Inpatient (IN) ==
--- NOTE | 2022-03-08 20:59 | XRay Report ---
SINGLE VIEW CHEST CLINICAL HISTORY: Dyspnea. FINDINGS: 2 AP, portable, upright chest radiographs are compared to study dated 11/26/2021 and correla tammy with chest CT dated 11/24/2021. The examination is degraded by portable technique and patient rota tion. The cardiomediastinal silhouette is top normal for projection. There is volume loss in the righ t lung. There is a layering right pleural effusion with associated right basilar consolidation. The l ungs left lung appears clear noting bibasilar scarring/atelectasis. No pneumothorax is seen. The skel etal structures are osteopenic. Chronic appearing bilateral rib fractures are noted. Advanced arthrit ic changes seen in the right shoulder. A left shoulder arthroplasty is in place. IMPRESSION: 1. Right pleural effusion with associated right basilar consolidation. 2. The left lung appears clear noting basilar scarring/atelectasis. ACT 112: Negative or not required by law. Electronically signed by: Shade Guerin M.D. 03/08/2022 8:57 PM
[2022-03-08 21:44] LABS: Basophils # (auto) 0.02 K/uL (0-0.2); Basophils % (auto) 0.2 %; Eosinophils # (auto) 0.01 K/uL (0-0.50); Eosinophils % (auto) 0.1 %; Hematocrit (blood only) 29.8 % (40.1-51.0); Hemoglobin 9.5 g/dl (14.0-18.0); Immature Granulocytes # (auto) 0.06 K/uL (0.00-0.02); Immature Granulocytes % (auto) 0.7 %; Lymphocytes # (auto) 1.07 K/uL (1.2-3.4); Lymphocytes % (auto) 12.3 %; Mean Corpuscular Hgb Conc 31.9 g/dL (32.0-36.0); Mean Corpuscular Volume 75.3 fL (80.0-100.0); Mean Platelet Volume 8.4 fL (9.4-12.4); Monocytes # (auto) 0.82 K/uL (0.24-0.82); Monocytes % (auto) 9.5 %; Neutrophils # (auto) 6.69 K/uL (1.4-6.5); Neutrophils % (auto) 77.2 %; Platelet Count 384 K/uL (130-400); RDW Coefficient of Variation 18.9 % (11.5-14.5); RDW Standard Deviation 51.4 fL (36.4-46.3); Red Blood Count 3.96 M/uL (4.63-6.08); White Blood Count 8.67 K/ul (4.8-10.8)
[2022-03-08 22:04] LABS: Alanine Aminotransferase 22 U/L (7-52); Albumin Globulin Ratio 0.8 (0.9-2); Albumin Level 3.3 gm/dl (3.4-5.0); Alkaline Phosphatase 135 U/L (34-104); Anion Gap 11 (3-11); Aspartate Aminotransferase 29 U/L (13-39); BUN Creatinine Ratio 17.3 (10-20); Bilirubin,Total 0.3 mg/dl (0.2-1.0); Blood Urea Nitrogen 18 mg/dl (6-23); Calcium 8.5 mg/dl (8.5-10.1); Carbon Dioxide 27 mmol/L (21-32); Chloride 90 mmol/L (98-107); Est GFR (African American) 83.3 ml/min; Est GFR (Non-African American) 71.9 ml/min; Globulin 4.2 gm/dl (2.5-4.0); Glucose 100 mg/dl (70-99(Fasting)); Potassium 2.9 mmol/L (3.5-5.1); Sodium 128 mmol/L (136-145); Total Protein 7.5 gm/dl (6.0-8.3)
[2022-03-08 22:06] LABS: INR 1.1 (0.9-1.1); Partial Thromboplastin Ratio 1.2; Prothrombin Time 12.1 Seconds (9.0-12.0)
[2022-03-08] MEDS ORDERED: ALBUT/IPRATROP 3MG/0.5MG NEB 3 ML VIAL NEB STA (22:12)
[2022-03-08] MEDS ORDERED: methylPREDNISolone 125 MG/2 ML VIAL IV STA (22:12)
--- NOTE | 2022-03-08 22:17 | Emergency Department Note ---
Impression & Plan Hypoxia ADMIT ED Provider Note HPI: The patient is a 71-year-old gentleman with history of chronic respiratory failure, on intermittent oxygen at home, presents emergency department chief complaint of increasing shortness of breath today. Patient states that he has been working harder to breathe, denies any chest pain, denies any recent fevers, states he has had a slight cough. On arrival the patient is tachypneic, he was noted to be hypoxic on room air at 88% and was placed on nasal cannula oxygen with good improvement in his oxygenation however he remains with some mild increased work of breathing. ROS: -Pulmonary: Shortness of breath *10 point review systems was conducted and is otherwise negative unless stated above *Outpatient medications and allergy history reviewed PE: General: Alert HEENT: Normocephalic, atraumatic Eyes: Extraocular eye movement is intact, no scleral erythema Pulmonary: Diminished air movement bilaterally without wheezing or crackles Cardio: Regular rate and rhythm GI: Abdomen is soft, nontender : No suprapubic tenderness MSK: No evidence of trauma or malformation of the extremities, no edema Skin: No evidence of rash Neuro: Alert, no focal deficits Psychiatric: Cooperative color television console monitor: - An order was placed for continuous cardiac monitoring - Patient was noted to be in sinus rhythm with rate of 95 EKG: Rate: 92 Rhythm: Normal sinus rhythm Intervals: Within normal limits ST changes: No ST elevation Time: 2125 CTA CHEST: No pulmonary embolus. No aortic aneurysm or dissection. There is a small right pleural effusion. Right scattered airspace opacities are most consistent with atypical infection. The heart size is within normal limits. No pathologically enlarged lymph nodes. No fracture. Radiologist: Meghan Mills MD Medical Decision Making: Patient presented to the emergency department chief complaint shortness of breath, on arrival IV was established, lab work obtained, patient was placed on monitor worker. CT angiography of the chest was obtained and does not show any evidence of pulmonary embolism or aortic dissection, there is evidence of small right pleural effusion, also right scattered airspace opacities that are consistent with atypical infection. Blood cultures were drawn, patient was calvin ated with ceftriaxone and azithromycin. Troponin is negative x1, EKG does not show any acute ischemic changes. Patient's lab work does not show leukocytosis, hemoglobin is 9.5 which appears to be near the patient's baseline, does have a history of anemia, he has heme is low 2.9, sodium is low at 128, patient was given oral potassium repletion here in the ED. Number reassessment following DuoNeb breathing treatment IV Solu- Medrol, patient states his breathing feels improved however he remains on 3 L nasal cannula oxygen which he does not normally require at baseline with oxygen saturations at 91 to 92%. I feel given CT imaging findings of possible infection in addition to the patient's increased oxygen requirement that he would benefit from admission. [facility] hospital[facility] was consulted for admission and the patient was admitted in stable condition for further care. COVID-19 testing is negative. Critical care time: 45 minutes - Stabilization of hypoxia requiring supplemental oxygen for stabilization via nasal cannula, oxygen saturations less than 90% on room air, interpretation of diagnostic studies, arrangement of admission Diagnosis: 1. Hypoxia 2. Atypical pneumonia 3. Hypokalemia 4. Hyponatremia 5. Dyspnea Disposition: Admission Austin Horta DO Emergency Medicine Past Med/Surg History Medical History (Updated 03/09/22 @ 01:23 by Terrell Clemente MD) Anemia Anxiety stable, controlled per pt, follows with [facility] At risk for pill esophagitis Atrial flutter, paroxysmal not on AC, not pursuing implantable loop recorder by pt decision per 06/2021 cardio note, follows with AYANA Sheffield Bilateral pleural effusion Chronic back pain Chronic hypoxemic respiratory failure Chronic osteomyelitis of hip Chronic ulcer of great toe COVID-19 virus infection 08/2020 PNA, acute respiratory failure with hypoxia requiring BiPAP, also hospitalized 09/2020 with bilat pleural effusion and differential including potential correlation to recent COVID illness Degeneration of cervical intervertebral disc Depression stable, controlled per pt, follows with [facility] Esophageal dysphagia Glaucoma Hearing deficit hearing aid (left) Heart failure diastolic, follows with AYANA Sheffield History of blood transfusion [id number] with multiple hip surgeries History of COVID-19 Hyperlipidemia Hypoalbuminemia due to protein-calorie malnutrition Leg length discrepancy RLE > LLE s/p multiple left hip revisions (per patient, missing hip joint) due to complications from hip surgery/revisions/MRSA infection- on chronic preventative Bactrim-- uses shoe with elevated heel/crutches On statin therapy Osteoarthritis Osteoporosis Peptic ulcer disease 12/2018 Pleural effusion recurrent right per [facility] 04/2021 note Pulmonary hypertension Elevated at 50-60 mmHg 09/2020 echo Restless leg syndrome Shortness of breath follows with [facility], on supplemental oxygen-pt states is only using supplemental oxygen at night as daytime pulse oximeter readings are remaining above 90%-he was advised to follow recommendations by pulm and further discuss with their office Transient ischemic attack (TIA) x1 (~2014) Surgical History H/O eye surgery 2 DRAINAGE TUBES RT/LEFT EYES FOR GLAUCOMA currently in place Retinal lift and cadaver placement week of 08/03/2021 in [place] History of bilateral cataract extraction History of cardiac cath 01/2021 [facility]: "Medical management of moderate to severe CAD" NO STENTS History of colonoscopy History of esophagogastroduodenoscopy (EGD) History of hip surgery LEFT HIP SURGERY/REVISIONS (TOTAL OF 9 SURGERIES) History of laminectomy L3-L5 laminectomy: 05/12/15: Grade view 1, MAC#3, ETT 8.0 (atraumatic DL x 1) at [facility] History of tonsillectomy and adenoidectomy History of tooth extraction Status post reverse total arthroplasty of left shoulder 07/03/2019: Grade 1 view, MAC#3, ETT#8.0, atraumatic x 1 + PNB. Family History Father Cerebral aneurysm Mother No pertinent past medical history Grandmother (Maternal) Myocardial infarction Denies family history of Ovarian cancer Prostate cancer Crohn's disease Breast cancer Colorectal cancer Ulcerative colitis Social History Smoking Status: Former smoker Tobacco Type: Smokeless Tobacco (Dip or Chew) Age Started Using Tobacco: 15; packs per day: 1.5; Cigarettes Per Day: 1 ppd over 20yrs ago; Second Hand Exposure: No; Hx Alcohol Use: No Hx Substance Use: Yes ("partied when younger") Last Used Substance Other:: hx medical marijuana card- does not currently use- last use 1 yr ago Preferred Language: Swiss Communication Ability: Effective Visual Impairment: No Limitations Hearing Ability: Normal Special Needs Child Caregiver Required: No Beliefs That Will Affect Care: None marital status: Current Living Situation: Spouse current occupational status: retired 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 [employer] How many Children do You have: 2 How many Children do You have Comment: 1 is Feels Safe at Home: Yes Childhood Exposure to Second-Hand Smoke: Yes caffeine: Yes Dental Care, Regularly: No Physical Activity Frequency: Does not Exercise Physical Activity Frequency Comment: Rehab twice a week Seatbelt Use: sometimes Sunscreen Use: No Assistive Devices: Oxygen - Continuous Allergies Allergies Allergy/AdvReac Type Severity Reaction Status Date / Time No Known Allergies Allergy Unknown Verified 03/08/22 22:42 Home Meds Home Medications Medication Instructions Recorded Confirmed ascorbic acid (vitamin C) 500 mg 500 mg PO QAM 01/10/19 03/08/22 tablet (Vitamin C) tamsulosin 0.4 mg capsule (Flomax) 0.4 mg PO QPM 01/10/19 03/08/22 pantoprazole 40 mg tablet,delayed 40 mg PO QAM 08/01/20 03/08/22 release multivitamin 1 tab PO QAM 10/05/20 03/08/22 omega 7-mpl-vcf-fish oil 1,200 mg 1 cap PO QAM 10/05/20 03/08/22 (144 mg-216 mg) capsule (Fish Oil) trazodone 150 mg tablet 150 mg PO HS 10/05/20 03/08/22 cholecalciferol (vitamin D3) 50 50 mcg PO QAM 10/16/20 03/08/22 mcg (2,000 unit) capsule lidocaine 5 % topical patch 1 patch TOPICAL DAILY PRN 10/16/20 03/08/22 (Lidoderm) iigolol-wqsdckyiw-fwgx 333 mg-133 1 tab PO HS 11/06/20 03/08/22 mg-5 mg tablet metoprolol tartrate 50 mg tablet 25 mg PO BID 01/16/21 03/08/22 chlorzoxazone 500 mg tablet 750 mg PO HS tab 03/06/21 03/08/22 oxybutynin chloride 5 mg tablet 5 mg PO HS 03/06/21 03/08/22 glucosamine-chondroitin 250 mg-200 1 tab PO BID tab 07/03/21 03/08/22 mg tablet (Osteo Bi-Flex) atorvastatin 40 mg tablet 40 mg PO QAM 07/29/21 03/08/22 fluticasone furoate 100 1 inh INHALATION BID 07/29/21 03/08/22 mcg-vilanterol 25 mcg/dose inhalation powder (Breo Ellipta) bupropion HCl 100 mg tablet 100 mg PO BID tab 10/21/21 03/08/22 ferrous sulfate 325 mg (65 mg 325 mg PO QAM 11/09/21 03/08/22 iron) tablet bacitracin 500 unit/gram topical 1 applic TOPICAL DAILY PRN 12/16/21 03/08/22 packet clopidogrel 75 mg tablet (Plavix) 75 mg PO DAILY 12/16/21 03/08/22 food supplemt, lactose-reduced 1 ea PO TID 12/16/21 03/08/22 0.05 gram-1.5 kcal/mL oral liquid (Ensure Plus) gabapentin 400 mg capsule 800 mg PO TID cap 12/16/21 03/08/22 gauze bandage 4" X 4" (Curad Gauze 12/16/21 02/19/22 Pad) povidone-iodine 10 % topical 1 applic TOPICAL DAILY ml 12/16/21 03/08/22 solution albuterol sulfate 90 mcg/actuation 2 puff INHALATION BID PRN 03/08/22 03/08/22 aerosol inhaler Previous Rx's Medication Instructions Recorded furosemide 40 mg tablet (Lasix) 40 mg PO BID #60 tab 05/06/21 brimonidine 0.2 % eye drops 1 drp OPHTHALMIC (EYE) BID #1 btl 11/26/21 dorzolamide 22.3 mg-timolol 6.8 1 drp OPHTHALMIC (EYE) TID #1 btl 11/26/21 mg/mL eye drops latanoprost 0.005 % eye drops 1 drp OPHTHALMIC (EYE) HS #1 btl 11/26/21 prednisolone acetate 1 % eye 1 drp OPHTHALMIC (EYE) TID #1 btl 11/26/21 drops,suspension sulfamethoxazole 800 1 tab PO Q12H #0 tab 11/26/21 mg-trimethoprim 160 mg tablet (Bactrim DS) HEEL LIFTS #1 ea 12/22/21 oxycodone-acetaminophen 5 mg-325 1 tab PO Q8H PRN #90 tab 01/18/22 mg tablet (Percocet) metolazone 5 mg tablet 5 mg PO DAILY PRN #30 tab 02/19/22 Results & Data (ED) Vital Signs Vital Signs - 24 hr 03/08/22 19:50 03/08/22 21:14 03/08/22 21:15 Temperature 36.1 C L Temperature Source Temporal Artery Scan Pulse Rate 95 H 90 92 H Pulse Rate from SpO2 Sensor Respiratory Rate 20 28 H 26 H Respiratory Effort / Characteristics Non-Labored Spontaneous Respiratory Depth Normal Respiratory Pattern Regular Blood Pressure 131/99 125/81 Blood Pressure Mean 109 95 Blood Pressure Position Sitting Pulse Oximetry 99 Oxygen Delivery Method Room Air Oxygen Flow Rate Sepsis Recent Fever Within 48 Hours No Sepsis New/Unexplained Change in Mental Status No Sepsis Action Taken by Nursing No Action Required 03/08/22 21:30 03/08/22 21:38 03/08/22 21:40 Temperature Temperature Source Pulse Rate 92 H 96 H Pulse Rate from SpO2 Sensor 108 H Respiratory Rate 24 27 H Respiratory Effort / Characteristics Non-Labored Respiratory Depth Respiratory Pattern Blood Pressure Blood Pressure Mean Blood Pressure Position Pulse Oximetry 100 Oxygen Delivery Method Room Air Oxygen Flow Rate Sepsis Recent Fever Within 48 Hours Sepsis New/Unexplained Change in Mental Status Sepsis Action Taken by Nursing 03/08/22 21:45 03/08/22 21:49 03/08/22 21:50 Temperature Temperature Source Pulse Rate 97 H 94 H 94 H Pulse Rate from SpO2 Sensor 103 H 96 H Respiratory Rate 27 H 27 H Respiratory Effort / Characteristics Respiratory Depth Respiratory Pattern Blood Pressure 127/78 Blood Pressure Mean 94 Blood Pressure Position Pulse Oximetry 88 L 90 100 Oxygen Delivery Method Nasal Cannula Oxygen Flow Rate 3 Sepsis Recent Fever Within 48 Hours Sepsis New/Unexplained Change in Mental Status Sepsis Action Taken by Nursing 03/08/22 22:00 03/08/22 22:16 03/08/22 22:26 Temperature Temperature Source Pulse Rate 97 H 96 H 99 H Pulse Rate from SpO2 Sensor Respiratory Rate 25 H 26 H 22 Respiratory Effort / Characteristics Respiratory Depth Respiratory Pattern Blood Pressure 116/83 129/102 H 123/77 Blood Pressure Mean 94 111 92 Blood Pressure Position Pulse Oximetry 98 Oxygen Delivery Method Oxygen Flow Rate Sepsis Recent Fever Within 48 Hours Sepsis New/Unexplained Change in Mental Status Sepsis Action Taken by Nursing 03/08/22 22:27 03/08/22 22:28 03/08/22 22:29 Temperature Temperature Source Pulse Rate 101 H 101 H 101 H Pulse Rate from SpO2 Sensor Respiratory Rate 25 H 21 21 Respiratory Effort / Characteristics Respiratory Depth Respiratory Pattern Blood Pressure 125/79 133/75 130/84 Blood Pressure Mean 94 94 99 Blood Pressure Position Pulse Oximetry 100 Oxygen Delivery Method Oxygen Flow Rate Sepsis Recent Fever Within 48 Hours Sepsis New/Unexplained Change in Mental Status Sepsis Action Taken by Nursing 03/08/22 22:30 03/08/22 22:31 03/08/22 22:32 Temperature Temperature Source Pulse Rate 104 H 104 H 103 H Pulse Rate from SpO2 Sensor Respiratory Rate 34 H 23 18 Respiratory Effort / Characteristics Respiratory Depth Respiratory Pattern Blood Pressure 124/81 127/78 133/78 Blood Pressure Mean 95 94 96 Blood Pressure Position Pulse Oximetry Oxygen Delivery Method Oxygen Flow Rate Sepsis Recent Fever Within 48 Hours Sepsis New/Unexplained Change in Mental Status Sepsis Action Taken by Nursing 03/08/22 22:33 03/08/22 22:34 03/08/22 22:36 Temperature Temperature Source Pulse Rate 103 H 101 H 101 H Pulse Rate from SpO2 Sensor Respiratory Rate 23 27 H 24 Respiratory Effort / Characteristics Respiratory Depth Respiratory Pattern Blood Pressure 121/74 123/81 118/83 Blood Pressure Mean 89 95 94 Blood Pressure Position Pulse Oximetry 100 Oxygen Delivery Method Oxygen Flow Rate Sepsis Recent Fever Within 48 Hours Sepsis New/Unexplained Change in Mental Status Sepsis Action Taken by Nursing 03/08/22 22:41 Temperature Temperature Source Pulse Rate 98 H Pulse Rate from SpO2 Sensor Respiratory Rate 26 H Respiratory Effort / Characteristics Respiratory Depth Respiratory Pattern Blood Pressure 126/70 Blood Pressure Mean 88 Blood Pressure Position Pulse Oximetry 90 Oxygen Delivery Method Oxygen Flow Rate Sepsis Recent Fever Within 48 Hours Sepsis New/Unexplained Change in Mental Status Sepsis Action Taken by Nursing Laboratory Data Result diagrams: 03/08/22 21:35 03/08/22 21:35 Lab Results 03/08/22 03/08/22 03/08/22 Range/Units 21:35 21:35 21:35 WBC 8.67 (4.8-10.8) K/ul RBC 3.96 L (4.63-6.08) M/uL Hgb 9.5 L (14.0-18.0) g/dl Hct 29.8 L (40.1-51.0) % MCV 75.3 L (80.0-100.0) fL MCH 24.0 L (25.0-34.0) pg MCHC 31.9 L (32.0-36.0) g/dL RDW Std Deviation 51.4 H (36.4-46.3) fL RDW Coeff of Timbo 18.9 H (11.5-14.5) % Plt Count 384 (130-400) K/uL MPV 8.4 L (9.4-12.4) fL Immature Gran % (Auto) 0.7 % Neut % (Auto) 77.2 % Lymph % (Auto) 12.3 % [place] % (Auto) 9.5 % Eos % (Auto) 0.1 % Baso % (Auto) 0.2 % Neut # (Auto) 6.69 H (1.4-6.5) K/uL Lymph # (Auto) 1.07 L (1.2-3.4) K/uL [place] # (Auto) 0.82 (0.24-0.82) K/uL Eos # (Auto) 0.01 (0-0.50) K/uL Baso # (Auto) 0.02 (0-0.2) K/uL Immature Gran # (Auto) 0.06 H (0.00-0.02) K/uL PT 12.1 H (9.0-12.0) Seconds INR 1.1 (0.9-1.1) APTT 34.0 H (21.0-31.0) Seconds PTT Ratio 1.2 VBG pH (7.36-7.41) VBG pCO2 (38-50) mmHg VBG pO2 mmHg VBG HCO3 mmol/L VBG O2 Saturation % VBG Base Excess mEq/L Sodium 128 L (136-145) mmol/L Potassium 2.9 L (3.5-5.1) mmol/L Chloride 90 L (98-107) mmol/L Carbon Dioxide 27 (21-32) mmol/L Anion Gap 11 (3-11) BUN 18 (6-23) mg/dl Creatinine 1.04 (0.6-1.4) mg/dl Est Cr Clr Drug Dosing Not Reportable Est GFR ( Amer) 83.3 ml/min Est GFR (Non-Af Amer) 71.9 ml/min BUN/Creatinine Ratio 17.3 (10-20) Glucose 100 H (70-99(Fasting)) mg/dl Calcium 8.5 (8.5-10.1) mg/dl Magnesium 2.0 (1.7-2.4) mg/dl Total Bilirubin 0.3 (0.2-1.0) mg/dl AST 29 (13-39) U/L ALT 22 (7-52) U/L Alkaline Phosphatase 135 H (34-104) U/L Troponin I High Sens 10.4 (0-20) pg/ml B-Natriuretic Peptide (0-100) pg/ml Total Protein 7.5 (6.0-8.3) gm/dl Albumin 3.3 L (3.4-5.0) gm/dl Globulin 4.2 H (2.5-4.0) gm/dl Albumin/Globulin Ratio 0.8 L (0.9-2) SARS-CoV-2 (PCR) (Negative) Influenza Type A (PCR) (Neg) Influenza Type B (PCR) (Neg) RSV (RT-PCR) (Neg) 03/08/22 03/08/22 03/09/22 Range/Units 21:52 22:30 00:07 WBC (4.8-10.8) K/ul RBC (4.63-6.08) M/uL Hgb (14.0-18.0) g/dl Hct (40.1-51.0) % MCV (80.0-100.0) fL MCH (25.0-34.0) pg MCHC (32.0-36.0) g/dL RDW Std Deviation (36.4-46.3) fL RDW Coeff of Timbo (11.5-14.5) % Plt Count (130-400) K/uL MPV (9.4-12.4) fL Immature Gran % (Auto) % Neut % (Auto) % Lymph % (Auto) % [place] % (Auto) % Eos % (Auto) % Baso % (Auto) % Neut # (Auto) (1.4-6.5) K/uL Lymph # (Auto) (1.2-3.4) K/uL [place] # (Auto) (0.24-0.82) K/uL Eos # (Auto) (0-0.50) K/uL Baso # (Auto) (0-0.2) K/uL Immature Gran # (Auto) (0.00-0.02) K/uL PT (9.0-12.0) Seconds INR (0.9-1.1) APTT (21.0-31.0) Seconds PTT Ratio VBG pH 7.56 H (7.36-7.41) VBG pCO2 27 L (38-50) mmHg VBG pO2 43 mmHg VBG HCO3 24 mmol/L VBG O2 Saturation 74.0 % VBG Base Excess 3.0 mEq/L Sodium (136-145) mmol/L Potassium (3.5-5.1) mmol/L Chloride (98-107) mmol/L Carbon Dioxide (21-32) mmol/L Anion Gap (3-11) BUN (6-23) mg/dl Creatinine (0.6-1.4) mg/dl Est Cr Clr Drug Dosing Est GFR ( Amer) ml/min Est GFR (Non-Af Amer) ml/min BUN/Creatinine Ratio (10-20) Glucose (70-99(Fasting)) mg/dl Calcium (8.5-10.1) mg/dl Magnesium (1.7-2.4) mg/dl Total Bilirubin (0.2-1.0) mg/dl AST (13-39) U/L ALT (7-52) U/L Alkaline Phosphatase (34-104) U/L Troponin I High Sens (0-20) pg/ml B-Natriuretic Peptide 33 (0-100) pg/ml Total Protein (6.0-8.3) gm/dl Albumin (3.4-5.0) gm/dl Globulin (2.5-4.0) gm/dl Albumin/Globulin Ratio (0.9-2) SARS-CoV-2 (PCR) NEGATIVE (Negative) Influenza Type A (PCR) Negative (Neg) Influenza Type B (PCR) Negative (Neg) RSV (RT-PCR) Negative (Neg) Administered Medications Discontinued Medications Albuterol (Albut/Ipratrop 3mg/0.5mg Neb 3 Ml Vial) 3 ml NEB NOW STA; Protocol Stop: 03/08/22 22:13 Last Admin: 03/08/22 22:24 Dose: 3 ml Documented by: [id number] Ceftriaxone Sodium (Rocephin) 1,000 mg in 50 mls @ 100 mls/hr IV NOW STA Stop: 03/09/22 00:27 Last Admin: 03/09/22 01:16 Dose: 100 mls/hr Documented by: [id number] Ioversol (Optiray 320 125ml) 120 ml IV ONCE ONE Stop: 03/08/22 23:09 Last Admin: 03/08/22 23:09 Dose: 120 ml Documented by: [id number] Methylprednisolone (Methylprednisolone 125 Mg/2 Ml Vial) 125 mg IV NOW STA Stop: 03/08/22 22:13 Last Admin: 03/08/22 22:24 Dose: 125 mg Documented by: [id number] Oxycodone HCl (Oxycodone Hcl Ir 5 Mg Tab (Immediate Release)) 5 mg PO NOW STA Stop: 03/08/22 22:53 Last Admin: 03/08/22 22:56 Dose: 5 mg Documented by: [id number] Potassium Chloride (Potassium Chloride Crtab 20 Meq Tabcr) 40 meq PO NOW STA Stop: 03/08/22 23:58 Last Admin: 03/09/22 00:05 Dose: 40 meq Documented by: [id number] Trazodone HCl (Trazodone Hcl 50 Mg Tab) 50 mg PO NOW ONE Stop: 03/09/22 00:16 Last Admin: 03/09/22 01:03 Dose: 50 mg Documented by: [id number] Imaging Data Radiologist's Impression: Chest X-Ray 03/08/22 20:07 SINGLE VIEW CHEST CLINICAL HISTORY: Dyspnea. FINDINGS: 2 AP, portable, upright chest radiographs are compared to study dated 11/26/2021 and correlated with chest CT dated 11/24/2021. The examination is degraded by portable technique and patient rotation. The cardiomediastinal silhouette is top normal for projection. There is volume loss in the right lung. There is a layering right pleural effusion with associated right basilar consolidation. The lungs left lung appears clear noting bibasilar scarring/atelectasis. No pneumothorax is seen. The skeletal structures are osteopenic. Chronic appearing bilateral rib fractures are noted. Advanced arthritic changes seen in the right shoulder. A left shoulder arthroplasty is in place. IMPRESSION: 1. Right pleural effusion with associated right basilar consolidation. 2. The left lung appears clear noting basilar scarring/atelectasis. ACT 112: Negative or not required by law. Electronically signed by: Shade Guerin M.D. 03/08/2022 8:57 PM Discharge Plan Visit Data Chief Complaint: Shortness of Breath/Dyspnea Stated Complaint: SOB ED Provider: Austin Horta Discharge Problem: Hypoxia Forms Stand Alone Forms: [facility] Prescriptions Prescriptions: No Action cholecalciferol (vitamin D3) 50 mcg (2,000 unit) capsule 50 mcg PO QAM RF: 0 lidocaine [Lidoderm] 5 % adhesive patch,medicated 1 patch topical DAILY PRN (Reason: Pain) RF: 0 oxybutynin chloride 5 mg tablet 5 mg PO HS RF: 0 furosemide [Lasix] 40 mg tablet 40 mg PO BID Qty: 60 RF: 2 oxycodone-acetaminophen [Percocet] 5-325 mg tablet 1 tab PO Q8H PRN (Reason: pain) Qty: 90 RF: 0 glucosamine-chondroitin [Osteo Bi-Flex] 250-200 mg tablet 1 tab PO BID RF: 0 metolazone 5 mg tablet 5 mg PO DAILY PRN (Reason: edema) Qty: 30 RF: 5 fpblhtu-ajnlsvuag-wvdi 333-133-5 mg tablet 1 tab PO HS RF: 0 povidone-iodine 10 % solution 1 applic topical DAILY RF: 0 Ensure Plus 0.05-1.5 gram-kcal/mL liquid 1 ea PO TID RF: 0 gabapentin 400 mg capsule 800 mg PO TID RF: 0 clopidogrel [Plavix] 75 mg tablet 75 mg PO DAILY RF: 0 bacitracin 500 unit/gram packet 1 applic topical DAILY PRN (Reason: Skin Irritation) RF: 0 (DME) gauze bandage [Curad Gauze Pad] 4 X 4 " bandage See Rx Instructions .Route RF: 0 (DME) HEEL LIFTS Misc See Rx Instructions .ROUTE .MEDSUPPLY Qty: 1 RF: 0 ascorbic acid (vitamin C) [Vitamin C] 500 mg Tablet 500 mg PO QAM RF: 0 tamsulosin [Flomax] 0.4 mg Capsule 0.4 mg PO QPM RF: 0 bupropion HCl 100 mg tablet 100 mg PO BID RF: 0 pantoprazole 40 mg tablet,delayed release (DR/EC) 40 mg PO QAM RF: 0 chlorzoxazone 500 mg tablet 750 mg PO HS RF: 0 multivitamin Tablet 1 tab PO QAM RF: 0 trazodone 150 mg Tablet 150 mg PO HS RF: 0 omega 0-qtv-ysm-fish oil [Fish Oil] 1,200 (144-216) mg Capsule 1 cap PO QAM RF: 0 metoprolol tartrate 50 mg Tablet 25 mg PO BID RF: 0 atorvastatin 40 mg tablet 40 mg PO QAM RF: 0 fluticasone furoate-vilanterol [Breo Ellipta] 100-25 mcg/dose blister with device 1 inh inhalation BID RF: 0 ferrous sulfate 325 mg (65 mg iron) Tablet 325 mg PO QAM RF: 0 latanoprost 0.005 % Drops 1 drp ophthalmic (eye) HS Qty: 1 RF: 0 prednisolone acetate 1 % Drops,Suspension 1 drp ophthalmic (eye) TID Qty: 1 RF: 0 brimonidine 0.2 % Drops 1 drp ophthalmic (eye) BID Qty: 1 RF: 0 dorzolamide-timolol 22.3-6.8 mg/mL Drops 1 drp ophthalmic (eye) TID Qty: 1 RF: 0 sulfamethoxazole-trimethoprim [Bactrim DS] 800-160 mg Tablet 1 tab PO Q12H Qty: 0 RF: 0 albuterol sulfate 90 mcg/actuation Hfa Aerosol Inhaler 2 puff INHALATION BID PRN (Reason: Shortness Of Breath Or Wheezing) RF: 0 Referrals Referrals: Rayo Jordan DO [Primary Care Provider] -
[2022-03-08 22:45] LABS: HCO3 VBG 24 mmol/L; PCO2 VBG 27 mmHg (38-50); PO2 VBG 43 mmHg; pH VBG 7.56 (7.36-7.41)
[2022-03-08] MEDS ORDERED: oxyCODONE HCL IR 5 MG TAB (IMMEDIATE RELEASE) PO STA (22:52)
[2022-03-08] MEDS ORDERED: OPTIRAY 320 125ml IV ONE (23:08)
[2022-03-08] MEDS ORDERED: POTASSIUM CHLORIDE CRTAB 20 MEQ TABCR PO STA (23:57)
[2022-03-08] MEDS ORDERED: AZITHROMYCIN 500 MG in DEXTROSE 5% 250 ML IV STA (23:58)
[2022-03-08] MEDS ORDERED: cefTRIAXone SODIUM 1,000 MG/50 ML BAG IV STA (23:58)
[2022-03-09] MEDS ORDERED: traZODone HCL 50 MG TAB PO ONE (00:15)
--- NOTE | 2022-03-09 00:36 | History & Physical Report ---
Date of Service March 09, 2022 Assessment & Plan (1) Acute on chronic respiratory failure: Plan: Brennan Saunders is a 71yo male with complex PMHx significant for chronic HFpEF (last EF 65-70% in 10/2021), chronic bilateral pleural effusions (with several thoracenteses done here, with h/o hemothorax and pneumothorax), pulmonary hypertension, chronic respiratory failure (on intermittent home O2), CAD, paroxysmal a-fib (on BB, no AC), PAD (s/p LLE angioplasty with stenting, on Plavix), iron deficiency anemia, h/o esophageal varices and ?cirrhosis, protein calorie malnutrition, chronic bilateral 1st toe ulcers, chronic left hip osteomyelitis, HLD and depression, who presented to [facility] ED on 03/09 due to dyspnea. Acute on Chronic Hypoxemic Respiratory Failure Worsening dyspnea/cough following upper respiratory infection ~1 week ago. Hypoxic on presentation requiring 5L/min NC. CTA chest with scattered right- sided opacities suspicious for atypical pneumonia. There is a small right pleural effusion but it appears much smaller than previous CTs - do not suspect this is significantly contributing to current condition. COVID-19 negative. - VBG showing respiratory alkalosis (pH 7.56, pCO2 27) and patient appears in moderate respiratory distress - initiate BiPAP now - received SoluMedrol 125mg IV x1 in ED - continue with 40mg IV Q8H - ACHS BSG checks while on steroids - scheduled DuoNebs Q6H and PRN Q2H - received CTX 1g IV and Azithromycin 500mg IV in ED - will continue with Azithromycin monotherapy as there is no consolidation on CTA chest - pulmonary toilet: flutter valve, Mucinex 1200mg PO BID - continue home inhalers - trend VBG in AM to ensure improvement with BiPAP Electrolyte Abnormalities Na 128, K 2.9, Cl 90. Suspect 2/2 to diuretics in addition to chronic poor PO intake and malnutrition. SIADH in context of pneumonia also may be contributing. - received KCl 40mEq in ED - will give another 40mEq now - LR @80cc/hr x1L - hold home Lasix and Metolazone for now - trend in AM CAD/PAD: continue home Atorvastatin and Plavix Chronic HFpEF: Last EF 65-70% in 10/2021. Euvolemic on exam. Hold home Lasix/Metolazone as stated above Iron Deficiency Anemia: Hgb 9.5 here, microcytic/hypochromic, at chronic baseline. Continue daily ferrous sulfate Paroxysmal A-fib: continue home Metoprolol Chronic left hip osteomyelitis: continue Bactrim ppx Chronic pain/OA/muscle spasms: on chronic pain medications - continue home PRN Percocet, Lidocaine patch, scheduled Gabapentin and Chlorzoxazone Chronic bilateral 1st toe ulcers: wound care appreciated Chronic Protein Calorie Malnutrition: encourage PO intake, dietary consult appreciated (prealbumin ordered - pending) GERD: continue home Protonix Depression: continue home Wellbutrin Insomnia: continue home Trazodone FEN/GI: heart-healthy diet, LR @80cc/hr (x1L) DVT Prophylaxis: SCDs and home Plavix (hold on anti-coagulation for ppx due to h/o variceal bleeds and hemothorax) Code Status: full code Disposition: PCU (2) Hyponatremia: (3) Hypokalemia: (4) Anemia: (5) Afib: (6) Bilateral pleural effusion: (7) Arthritis of multiple sites: (8) Hypoalbuminemia due to protein-calorie malnutrition: (9) Pulmonary hypertension: (10) History of hip surgery: (11) CAD (coronary artery disease): (12) PAD (peripheral artery disease): (13) Chronic osteomyelitis of hip: (14) Hyperlipidemia: (15) Chronic ulcer of great toe: History of Present Illness Chief Complaint: shortness of breath Primary Care Provider: Rayo Jordan DO Brennan Saunders is a 71yo male with complex PMHx significant for chronic HFpEF (last EF 65-70% in 10/2021), chronic bilateral pleural effusions (with several thoracenteses done here, with h/o hemothorax and pneumothorax), pulmonary hypertension, chronic respiratory failure (on intermittent home O2), CAD, paroxysmal a-fib (on BB, no AC), PAD (s/p LLE angioplasty with stenting, on Plavix), iron deficiency anemia, h/o esophageal varices and ?cirrhosis, protein calorie malnutrition, chronic bilateral 1st toe ulcers, chronic left hip osteomy elitis, HLD and depression, who presented to [facility] ED on 03/09 due to dyspnea. Patient reports progressive dyspnea x3-4 days. He was complaining of chills and increased cough ~1 week ago. Cough has persisted. He has home O2 but does not usually use it - however he asked his for it yesterday and then she suggested that he come into the ED for evaluation. Patient denies fever/chills, chest pain, palpitations, N/V, abdominal pain, diarrhea or rash. He has been taking all medications and inhalers as prescribed. He has a 60 pack year smoking history but quit ~20 years ago. No alcohol use or drug use. Proficient in ADLs and most iADLs. Per , he sometimes gets agitated and confused in the evenings. In the ED the patient was hypoxic to 88% on room air and improved to high 90s on 3L/min NC. Tachypneic in mid 20s. VBG showing respiratory alkalosis pH 7.56/pCO2 27. Hgb 9.5 (variable baseline 8-11, microcytic/hypochromic). Na 128, K 2.9, Cl 90. Cr WNL. Chest CTA showing small right pleural effusion and scattered opacities throughout right lung suspicious for atypical pneumonia. COVID-19 negative. Patient was given Methylprednisolone 125mg IV x1 and Albuterol nebs x1. Was also given Oxycodone 5mg PO x1, KCl 40mEq PO, and was started on Azithromycin and Ceftriaxone. Blood cultures drawn before initiation of antibiotics. Allergies Allergy/AdvReac Type Severity Reaction Status Date / Time No Known Allergies Allergy Unknown Verified 03/08/22 22:42 Home Medications Medication Instructions Recorded Confirmed Type ascorbic acid (vitamin C) 500 mg 500 mg PO QAM 01/10/19 03/08/22 History tablet (Vitamin C) tamsulosin 0.4 mg capsule (Flomax) 0.4 mg PO QPM 01/10/19 03/08/22 History pantoprazole 40 mg tablet,delayed 40 mg PO QAM 08/01/20 03/08/22 History release multivitamin 1 tab PO QAM 10/05/20 03/08/22 History omega 2-kgf-jkf-fish oil 1,200 mg 1 cap PO QAM 10/05/20 03/08/22 History (144 mg-216 mg) capsule (Fish Oil) trazodone 150 mg tablet 150 mg PO HS 10/05/20 03/08/22 History cholecalciferol (vitamin D3) 50 50 mcg PO QAM 10/16/20 03/08/22 History mcg (2,000 unit) capsule lidocaine 5 % topical patch 1 patch TOPICAL DAILY PRN 10/16/20 03/08/22 History (Lidoderm) bymdped-mqicyulro-acqm 333 mg-133 1 tab PO HS 11/06/20 03/08/22 History mg-5 mg tablet metoprolol tartrate 50 mg tablet 25 mg PO BID 01/16/21 03/08/22 History chlorzoxazone 500 mg tablet 750 mg PO HS tab 03/06/21 03/08/22 History oxybutynin chloride 5 mg tablet 5 mg PO HS 03/06/21 03/08/22 History furosemide 40 mg tablet (Lasix) 40 mg PO BID #60 tab 05/06/21 03/08/22 Rx glucosamine-chondroitin 250 mg-200 1 tab PO BID tab 07/03/21 03/08/22 History mg tablet (Osteo Bi-Flex) atorvastatin 40 mg tablet 40 mg PO QAM 07/29/21 03/08/22 History fluticasone furoate 100 1 inh INHALATION BID 07/29/21 03/08/22 History mcg-vilanterol 25 mcg/dose inhalation powder (Breo Ellipta) bupropion HCl 100 mg tablet 100 mg PO BID tab 10/21/21 03/08/22 History ferrous sulfate 325 mg (65 mg 325 mg PO QAM 11/09/21 03/08/22 History iron) tablet brimonidine 0.2 % eye drops 1 drp OPHTHALMIC (EYE) BID #1 btl 11/26/21 03/08/22 Rx dorzolamide 22.3 mg-timolol 6.8 1 drp OPHTHALMIC (EYE) TID #1 btl 11/26/21 03/08/22 Rx mg/mL eye drops latanoprost 0.005 % eye drops 1 drp OPHTHALMIC (EYE) HS #1 btl 11/26/21 03/08/22 Rx prednisolone acetate 1 % eye 1 drp OPHTHALMIC (EYE) TID #1 btl 11/26/21 03/08/22 Rx drops,suspension sulfamethoxazole 800 1 tab PO Q12H #0 tab 11/26/21 03/08/22 Rx mg-trimethoprim 160 mg tablet (Bactrim DS) bacitracin 500 unit/gram topical 1 applic TOPICAL DAILY PRN 12/16/21 03/08/22 History packet clopidogrel 75 mg tablet (Plavix) 75 mg PO DAILY 12/16/21 03/08/22 History food supplemt, lactose-reduced 1 ea PO TID 12/16/21 03/08/22 History 0.05 gram-1.5 kcal/mL oral liquid (Ensure Plus) gabapentin 400 mg capsule 800 mg PO TID cap 12/16/21 03/08/22 History gauze bandage 4" X 4" (Curad Gauze 12/16/21 02/19/22 History Pad) povidone-iodine 10 % topical 1 applic TOPICAL DAILY ml 12/16/21 03/08/22 History solution HEEL LIFTS #1 ea 12/22/21 02/19/22 Rx oxycodone-acetaminophen 5 mg-325 1 tab PO Q8H PRN #90 tab 01/18/22 03/08/22 Rx mg tablet (Percocet) metolazone 5 mg tablet 5 mg PO DAILY PRN #30 tab 02/19/22 03/08/22 Rx albuterol sulfate 90 mcg/actuation 2 puff INHALATION BID PRN 03/08/22 03/08/22 History aerosol inhaler Past Med/Surg History Medical History (Updated 03/09/22 @ 01:23 by Terrell Clemente MD) Anemia Anxiety stable, controlled per pt, follows with [facility] At risk for pill esophagitis Atrial flutter, paroxysmal not on AC, not pursuing implantable loop recorder by pt decision per 06/2021 cardio note, follows with [facility] Bilateral pleural effusion Chronic back pain Chronic hypoxemic respiratory failure Chronic osteomyelitis of hip Chronic ulcer of great toe COVID-19 virus infection 08/2020 PNA, acute respiratory failure with hypoxia requiring BiPAP, also hospitalized 09/2020 with bilat pleural effusion and differential including potential correlation to recent COVID illness Degeneration of cervical intervertebral disc Depression stable, controlled per pt, follows with [facility] Esophageal dysphagia Glaucoma Hearing deficit hearing aid (left) Heart failure diastolic, follows with [facility]YA[facility] History of blood transfusion [id number] with multiple hip surgeries History of COVID-19 Hyperlipidemia Hypoalbuminemia due to protein-calorie malnutrition Leg length discrepancy RLE > LLE s/p multiple left hip revisions (per patient, missing hip joint) due to complications from hip surgery/revisions/MRSA infection- on chronic preventative Bactrim-- uses shoe with elevated heel/crutches On statin therapy Osteoarthritis Osteoporosis Peptic ulcer disease 12/2018 Pleural effusion recurrent right per [facility] 04/2021 note Pulmonary hypertension Elevated at 50-60 mmHg 09/2020 echo Restless leg syndrome Shortness of breath follows with [facility], on supplemental oxygen-pt states is only using supplemental oxygen at night as daytime pulse oximeter readings are remaining above 90%-he was advised to follow recommendations by pulm and further discuss with their office Transient ischemic attack (TIA) x1 (~2014) Surgical History H/O eye surgery 2 DRAINAGE TUBES RT/LEFT EYES FOR GLAUCOMA currently in place Retinal lift and cadaver placement week of 08/03/2021 in [place] History of bilateral cataract extraction History of cardiac cath 01/2021 [facility]: "Medical management of moderate to severe CAD" NO STENTS History of colonoscopy History of esophagogastroduodenoscopy (EGD) History of hip surgery LEFT HIP SURGERY/REVISIONS (TOTAL OF 9 SURGERIES) History of laminectomy L3-L5 laminectomy: 05/12/15: Grade view 1, MAC#3, ETT 8.0 (atraumatic DL x 1) at [facility] History of tonsillectomy and adenoidectomy History of tooth extraction Status post reverse total arthroplasty of left shoulder 07/03/2019: Grade 1 view, MAC#3, ETT#8.0, atraumatic x 1 + PNB. Family History Father Cerebral aneurysm Mother No pertinent past medical history Grandmother (Maternal) Myocardial infarction Denies family history of Ovarian cancer Prostate cancer Crohn's disease Breast cancer Colorectal cancer Ulcerative colitis Social History Smoking Status: Former smoker Tobacco Type: Smokeless Tobacco (Dip or Chew) Age Started Using Tobacco: 15; packs per day: 1.5; Cigarettes Per Day: 1 ppd over 20yrs ago; Second Hand Exposure: No; Do You Dip or Chew Tobacco: No; Tobacco Cessation Education Requested by Patient: No Hx Alcohol Use: Yes Alcohol type: beer Alcohol Intake Frequency: Monthly or Less Alcohol Intake Frequency Comment: rare; but no heavy intake in the past Hx Substance Use: No Preferred Language: Ghanaian Communication Ability: Effective Visual Impairment: No Limitations Hearing Ability: Normal Forestry Consultant Required: No Beliefs That Will Affect Care: None marital status: Current Living Situation: Spouse current occupational status: retired 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 [employer] How many Children do You have: 2 How many Children do You have Comment: 1 is Other Information That Helps Us Care for You: No Feels Safe at Home: Yes Safety Concerns: Feels Safe At This Time Childhood Exposure to Second-Hand Smoke: Yes caffeine: Yes Dental Care, Regularly: No Physical Activity Frequency: Does not Exercise Physical Activity Frequency Comment: Rehab twice a week Seatbelt Use: sometimes Sunscreen Use: No Assistive Devices: Crutches and Walker Review of Systems Review of Systems: All systems reviewed & are unremarkable except as noted in HPI & below Physical Exam Physical Exam: General: A&Ox3. Moderate respiratory distress. Cooperative. Thin. HEENT: Atraumatic, normocephalic. NC in place. Pulm: Decreased aeration bilaterally with bilateral wheezes and right-sided crackles. Moderate increased work of breathing. Cardiac: RRR, -mrg. Radial pulses intact and symmetrical. No LE edema. Abdominal: soft, non-tender, non-distended, BS x 4 Skin: warm, dry, no rash Results & Data Results & Data ([facility]) Vital Signs (Past 12 Hours) Vital Signs Temp Pulse Resp BP Pulse Ox 03/08/22 22:41 98 H 26 H 126/70 90 03/08/22 22:36 101 H 24 118/83 100 03/08/22 22:34 101 H 27 H 123/81 03/08/22 22:33 103 H 23 121/74 03/08/22 22:32 103 H 18 133/78 03/08/22 22:31 104 H 23 127/78 03/08/22 22:30 104 H 34 H 124/81 03/08/22 22:29 101 H 21 130/84 100 03/08/22 22:28 101 H 21 133/75 03/08/22 22:27 101 H 25 H 125/79 03/08/22 22:26 99 H 22 123/77 98 03/08/22 22:16 96 H 26 H 129/102 H 03/08/22 22:00 97 H 25 H 116/83 03/08/22 21:50 94 H 27 H 100 03/08/22 21:49 94 H 90 03/08/22 21:45 97 H 27 H 127/78 88 L 03/08/22 21:40 96 H 27 H 100 03/08/22 21:30 92 H 24 03/08/22 21:15 92 H 26 H 125/81 03/08/22 21:14 90 28 H 03/08/22 19:50 36.1 C L 95 H 20 131/99 99 Code Status & VTE Plan Code Status full code - discussed with patient and his Supervising Physician Co-Signing Physician Notes Attending addendum: I have physically seen this patient, have supervised the medical residents activities, and agree with the H&P unless as otherwise noted. Assessment and Plan: Acute on chronic respiratory failure with hypoxia- Duonebs every 4 hours while awake and every 2 hours when necessary. Received methylprednisolone 125 mg IV in ED, will continue 40 mg IV every 8 hours Azithromycin 500 mg IV daily ceftriaxone 1 g IV daily Continue home inhalers CAD/PAD/hypertension/PAF- Continue clopidogrel, metoprolol with hold parameters Hyperlipidemia- Continue atorvastatin Remaining orders and notations as noted Resident Activity Tracking Resident Involvement: Resident Care Provided Care Provided: Adult Hospital Medicine (1) Anemia Anemia type: unspecified type Qualified Code(s): D64.9 - Anemia, unspecified
[2022-03-09 00:51] LABS: Influenza A virus by PCR Negative (Neg); Influenza B virus by PCR Negative (Neg); RSV by PCR Negative (Neg); SARS CoV2 RNA(COVID-19) InHosp NEGATIVE (Negative)
[2022-03-09 00:53] LABS: Troponin I High Sensitivity 10.4 pg/ml (0-20)
[2022-03-09] MEDS ORDERED: traZODone HCL 100 MG TAB PO STA (00:59)
[2022-03-09] MEDS ORDERED: POTASSIUM CHLORIDE CRTAB 20 MEQ TABCR PO STA ×2 (01:34→07:38)
[2022-03-09] MEDS ORDERED: LIDOCAINE 5% 1 PATCH TD PRN (02:15)
[2022-03-09] MEDS ORDERED: LACTATED RINGER'S 1,000 ML IV SCH (02:15)
[2022-03-09] MEDS ORDERED: ALBUT/IPRATROP 3MG/0.5MG NEB 3 ML VIAL NEB PRN (02:15)
[2022-03-09] MEDS ORDERED: HYDROmorphone INJ 0.5 MG/0.5 ML SYR IV STA ×2 (02:22→03:12)
[2022-03-09] MEDS ORDERED: HYDROmorphone INJ 0.5 MG/0.5 ML SYR ONE (02:29)
[2022-03-09] MEDS ORDERED: LORazepam 0.5 MG in SYRINGE 0.25 ML IV STA (02:31)
[2022-03-09] MEDS ORDERED: LORazepam 2 MG/1 ML VIAL IM STA ×2 (02:42→02:49)
[2022-03-09] MEDS ORDERED: Patient's HEIGHT &/or WEIGHT Needed SCH (02:45)
[2022-03-09] MEDS ORDERED: HYDROmorphone INJ 0.5 MG/0.5 ML SYR IM STA (02:46)
[2022-03-09] MEDS ORDERED: SULFAMETHOXAZOLE/TRIMETHOPRIM DS 800/160MG TAB PO ONE (03:00)
[2022-03-09] MEDS: methylPREDNISolone 40 MG in SYRINGE 0 ML IV SCH ×3 (05:12→21:33)
[2022-03-09 05:50] LABS: Hematocrit (blood only) 28.1 % (40.1-51.0); Mean Corpuscular Hemoglobin 23.9 pg (25.0-34.0); Mean Corpuscular Volume 74.7 fL (80.0-100.0); Mean Platelet Volume 8.8 fL (9.4-12.4); Platelet Count 381 K/uL (130-400); RDW Coefficient of Variation 19.1 % (11.5-14.5); RDW Standard Deviation 51.9 fL (36.4-46.3); Red Blood Count 3.76 M/uL (4.63-6.08); White Blood Count 7.12 K/ul (4.8-10.8)
[2022-03-09 06:01] LABS: Base Excess VBG 1.2 mEq/L; HCO3 VBG 26 mmol/L; Oxygen Saturation VBG 71.5 %; PCO2 VBG 41 mmHg (38-50); PO2 VBG 48 mmHg; pH VBG 7.41 (7.36-7.41)
[2022-03-09 06:14] LABS: BUN Creatinine Ratio 18.2 (10-20); Calcium 8.2 mg/dl (8.5-10.1); Creatinine Clr Calc Pharmacy 70.6 ml/min; Est GFR (African American) 100.2 ml/min; Est GFR (Non-African American) 86.4 ml/min; Prealbumin 16.5 mg/dl (20-40)
[2022-03-09 06:26] LABS: Immature Granulocytes # (auto) 0.03 K/uL (0.00-0.02); Immature Granulocytes % (auto) 0.4 %; Lymphocytes # (auto) 0.29 K/uL (1.2-3.4); Lymphocytes % (auto) 4.1 %; Monocytes # (auto) 0.23 K/uL (0.24-0.82); Monocytes % (auto) 3.2 %; Neutrophils # (auto) 6.57 K/uL (1.4-6.5); Neutrophils % (auto) 92.3 %; RBC Morphology Unremarkable
[2022-03-09] MEDS: ALBUT/IPRATROP 3MG/0.5MG NEB 3 ML VIAL INH SCH ×3 (07:15→19:26)
--- NOTE | 2022-03-09 07:57 | CT Scan Report ---
CT angio chest PE protocol CLINICAL HISTORY: PE TECHNIQUE: Multidetector row helical CT of the chest was performed with angiographic protocol. Haywood l and sagittal reformations were obtained. Coronal and sagittal MIPS were obtained from the axial brian a set and were submitted for review. Automated dose lowering techniques and/or adjustment according to patient size were utilized for this exam. CT DOSE: 397.71 mGy.cm Comparison: Comparison is made to CT chest 11/24/2021 FINDINGS: Lungs and pleura: There is a small right pleural effusion. Pulmonary densities with small calcificati ons are seen in the right lung. Biapical scarring is seen. A few scattered groundglass and nodular de nsities are seen most prominent in the upper lungs. Heart and pericardium: Heart size is normal. No pericardial effusion. Vessels: Severe atherosclerotic calcifications are seen in the coronary arteries. No pulmonary emboli sm is seen. Mediastinum and va: Subcentimeter lymph nodes are seen. Chest wall and lower neck: Unremarkable. Abdomen: Unremarkable. Bones: Degenerative changes are seen of the spine. Rib fractures are seen on the left which appear to be subacute pelvis were also seen on prior exam IMPRESSION: 1. No evidence of pulmonary embolism. 2. A few groundglass and nodular densities are seen, likely infectious/inflammatory in origin. 3. Small right pleural effusion, decreased from prior exam. Interval resolution of left pleural effu theodore. 4. Densities in the peripheral right lung may represent atelectasis with calcifications, unchanged f rom prior exam ACT 112: Negative or not required by law. Electronically signed by: Greg Squires M.D. 03/09/2022 7:55 AM
[2022-03-09] MEDS: CLOPIDOGREL BISULFATE 75 MG TAB PO SCH (08:30)
[2022-03-09] MEDS: buPROPion HCl 100 MG TABLET PO SCH ×2 (08:30→20:19)
[2022-03-09] MEDS: FERROUS SULFATE 325 MG TAB PO SCH (08:30)
[2022-03-09] MEDS: PANTOprazole 40 MG TAB PO SCH (08:30)
[2022-03-09] MEDS: ATORVASTATIN 40 MG TAB PO SCH (08:30)
[2022-03-09] MEDS: GABAPENTIN 400 MG CAP PO SCH ×3 (08:30→20:17)
[2022-03-09] MEDS: METOPROLOL TARTRATE 25 MG TAB PO SCH ×2 (08:30→20:00)
[2022-03-09] MEDS: guaiFENesin 600 MG TABCR PO SCH ×2 (08:30→20:17)
[2022-03-09] MEDS: FLUTICASONE/VILANTEROL 100/25MCG 14 PUFFS/INHALER INH SCH ×2 (08:31→20:22)
[2022-03-09] MEDS: DORZOLAMIDE/TIMOLOL 22.3/6.8MG/ML 10 ML BTL OP SCH ×3 (08:31→20:23)
[2022-03-09] MEDS: BRIMONIDINE TARTRATE 0.2% 5ML OP SCH ×2 (08:31→20:23)
[2022-03-09] MEDS: prednisoLONE acetate 1% OP SUSP 5 ML BTL OP SCH ×3 (08:32→20:23)
[2022-03-09] MEDS: SULFAMETHOXAZOLE/TRIMETHOPRIM DS 800/160MG TAB PO SCH ×2 (08:33→20:18)
[2022-03-09] MEDS: oxyCODONE/ACETAMINOPHEN 5mg/325mg TAB PO PRN ×2 (08:42→20:16)
[2022-03-09] MEDS ORDERED: [UNRECOGNIZED DRUG - OTHER] PO SCH (09:00)
--- NOTE | 2022-03-09 12:08 | Electrocardiogram Report ---
Test Reason : Blood Pressure : / mmHG Vent. Rate : 092 BPM Atrial Rate : 092 BPM P-R Int : 120 ms QRS Dur : 084 ms QT Int : 386 ms P-R-T Axes : 028 -16 046 degrees QTc Int : 477 ms Poor data quality, interpretation may be adversely affected Normal sinus rhythm Confirmed by Woody Bolton ([id number]) on 03/09/2022 12:07:51 PM Referred By: REFERRED SELF Confirmed By:Joey Bolton
[2022-03-09 13:49] LABS: Calcium 8.1 mg/dl (8.5-10.1); Creatinine Clr Calc Pharmacy 78.7 ml/min; Est GFR (African American) 104.7 ml/min; Est GFR (Non-African American) 90.3 ml/min
[2022-03-09 14:15] LABS: Potassium 4.5 mmol/L (3.5-5.1)
--- NOTE | 2022-03-09 14:36 | Ultrasound Report ---
US arterial duplex LE LT CLINICAL HISTORY: atherosclerosis, toe ulcer. COMPARISON: None. TECHNIQUE: Duplex sonography of left lower extremity arterial system was performed. Velocity measure ments provided are in centimeters per second FINDINGS: Dorman scale, Doppler spectral analysis, and color imaging performed. Left common femoral artery: Monophasic flow velocity. 50 Left profunda femoris artery: Biphasic flow velocity. 53 Left superficial femoral artery: Monophasic flow velocity. Proximally, the velocity is 31 cm/s howev er, distally, the peak systolic velocity is 433 cm/s representing marked stenosis. Left popliteal artery: Monophasic flow velocity. 40 Left posterior tibial artery: Monophasic flow velocity. 90 Left anterior tibial artery: Monophasic flow velocity. 15 Left dorsalis pedis artery: Monophasic flow velocity. 10 Left peroneal artery: Monophasic flow velocity. 19 Left flow velocities: There is extensive atherosclerotic plaque present within the arteries of the l eft lower extremity with decreased flow seen throughout the extremity. However, there is a focus of m arked increased flow velocity involving the distal superficial femoral artery representing marked nancy nosis. IMPRESSION: 1. Extensive atherosclerotic calcification throughout the left lower extremity. 2. Marked stenosis involving the distal superficial femoral artery. ACT 112: Negative or not required by law. Electronically signed by: Wolf Woods M.D. 03/09/2022 2:35 PM
--- NOTE | 2022-03-09 19:09 | Hospitalist Progress Note ---
Date of Service March 09, 2022 Assessment & Plan (1) Acute on chronic respiratory failure: Plan: Brennan Saunders is a 71yo male with complex PMHx significant for chronic HFpEF (last EF 65-70% in 10/2021), chronic bilateral pleural effusions (with several thoracenteses done here, with h/o hemothorax and pneumothorax), pulmonary hypertension, chronic respiratory failure (on intermittent home O2), CAD, paroxysmal a-fib (on BB, no AC), PAD (s/p LLE angioplasty with stenting, on Plavix), iron deficiency anemia, h/o esophageal varices and ?cirrhosis, protein calorie malnutrition, chronic bilateral 1st toe ulcers, chronic left hip osteomyelitis, HLD and depression, who presented to [facility] ED on 03/09 due to dyspnea. Acute on Chronic Hypoxemic Respiratory Failure Worsening dyspnea/cough following upper respiratory infection ~1 week ago. Hypoxic on presentation requiring 5L/min NC. CTA chest with scattered right- sided opacities suspicious for atypical pneumonia. There is a small right pleural effusion but it appears much smaller than previous CTs - do not suspect this is significantly contributing to current condition. COVID-19 negative. - Initial VBG showing respiratory alkalosis (pH 7.56, pCO2 27), BiPaP initiated --> VBG improved, bipap d/c'd, currently on RA - CXR: R pleural effusion with associated right basilar consolidation, L lung clear noting basilar scarring/atelectasis - CTA chest: no PE, some groundglass and nodular densities, small R pleural effusion decresed from prior - received SoluMedrol 125mg IV x1 in ED - continue with 40mg IV Q8H - scheduled DuoNebs Q6H and PRN Q2H - received CTX 1g IV and Azithromycin 500mg IV in ED - continue Azithromycin monotherapy as there is no consolidation on CTA chest - pulmonary toilet: flutter valve, Mucinex 1200mg PO BID - continue home inhalers, incentive spirometer Electrolyte Abnormalities On admission Na 128, K 2.9, Cl 90. Suspect 2/2 to diuretics in addition to chronic poor PO intake and malnutrition. SIADH in context of pneumonia also may be contributing - replenished K, repeat 4.5 - repeat Na 125 - d/c'd LR @80cc/hr x1L - hold home Lasix and Metolazone - 1.5L fluid restriction, salt tabs 1gm BID - trend in AM Chronic bilateral 1st toe ulcers, chronic -follows with vascular outpatient -wound care consulted -US arterial duplex LE left: extensive atherosclerotic calcification, marked stenosis of distal superficial femoral artery CAD/PAD -continue home Atorvastatin and Plavix Chronic HFpEF -Last EF 65-70% in 10/2021. Euvolemic on exam. Hold home Lasix/Metolazone as stated above Iron Deficiency Anemia -Hgb 9.5 admission, microcytic/hypochromic, at chronic baseline. -Repeat Hgb 9, cont. to monitor -Continue daily ferrous sulfate Paroxysmal A-fib -continue home Metoprolol Chronic left hip osteomyelitis -continue Bactrim ppx Chronic pain/OA/muscle spasms -on chronic pain medications - continue home PRN Percocet, Lidocaine patch, scheduled Gabapentin and Chlorzoxazone Chronic Protein Calorie Malnutrition - severe -encourage PO intake -consider dietary consult -prealbumin low, 16.5 GERD -continue home Protonix Depression -continue home Wellbutrin Insomnia -continue home Trazodone DVT ppx: SCDs and home Plavix FEN/GI: HH Code Status: Full Dispo: PCU/tele (2) Hyponatremia: (3) Hypokalemia: (4) Anemia: (5) Afib: (6) Bilateral pleural effusion: (7) Arthritis of multiple sites: (8) Hypoalbuminemia due to protein-calorie malnutrition: (9) Pulmonary hypertension: (10) History of hip surgery: (11) CAD (coronary artery disease): (12) PAD (peripheral artery disease): (13) Chronic osteomyelitis of hip: (14) Hyperlipidemia: (15) Chronic ulcer of great toe: Admission and Anticipated Discharge Date Admission Date: March 09, 2022 Supervising Physician Co-Signing Physician Notes Resident Physician Supervision Note: I independently interviewed and examined the patient and verified the vargas history and physical, reviewed labs and image studies and agree with resident Dr. Fan findings and care plan. Subjective Patient seen at bedside this morning. Overnight needed 1:1 because he kept trying to bipap off. Currently on bipap, says he feels a lot better than before. Wants the bipap to come off. Denies chest pain, SOB, BARRETO, N/V, dyspnea. Review of Systems Review of Systems: All systems reviewed & are unremarkable except as noted in HPI & below Physical Exam Physical Exam: General: A&Ox3. Mild respiratory distress. Cooperative. Thin. HEENT: Atraumatic, normocephalic. NC in place. Pulm: Decreased aeration bilaterally otherwise no wheezing, rales, rhonchi appreciated. Mild increased work of breathing. Cardiac: RRR, no murmurs. Radial pulses intact and symmetrical. No LE edema. Abdominal: soft, non-tender, non-distended, BS x 4 Skin: warm, dry. bilateral big toes necrotic (chronic). Results & Data Results & Data ([facility]) Vital Signs (Past 12 Hours) Vital Signs Temp Pulse Pulse Resp BP Pulse Ox 03/09/22 15:08 36.5 C 76 18 119/73 95 03/09/22 15:00 72 03/09/22 13:24 72 20 94 03/09/22 11:32 36.4 C L 70 18 121/80 96 03/09/22 10:35 68 15 99 03/09/22 08:27 104 H 126/77 97 03/09/22 07:45 103 H 03/09/22 07:16 103 H 103 H 17 99 Laboratory Results 03/09/22 03/09/22 03/09/22 Range/Units 16:15 12:59 11:36 WBC (4.8-10.8) K/ul RBC (4.63-6.08) M/uL Hgb (14.0-18.0) g/dl Hct (40.1-51.0) % MCV (80.0-100.0) fL MCH (25.0-34.0) pg MCHC (32.0-36.0) g/dL RDW Std Deviation (36.4-46.3) fL RDW Coeff of Timbo (11.5-14.5) % Plt Count (130-400) K/uL MPV (9.4-12.4) fL Immature Gran % (Auto) % Neut % (Auto) % Lymph % (Auto) % [place] % (Auto) % Eos % (Auto) % Baso % (Auto) % Neut # (Auto) (1.4-6.5) K/uL Lymph # (Auto) (1.2-3.4) K/uL [place] # (Auto) (0.24-0.82) K/uL Eos # (Auto) (0-0.50) K/uL Baso # (Auto) (0-0.2) K/uL Immature Gran # (Auto) (0.00-0.02) K/uL RBC Morphology PT (9.0-12.0) Seconds INR (0.9-1.1) APTT (21.0-31.0) Seconds PTT Ratio VBG pH (7.36-7.41) VBG pCO2 (38-50) mmHg VBG pO2 mmHg VBG HCO3 mmol/L VBG O2 Saturation % VBG Base Excess mEq/L Sodium 125 L (136-145) mmol/L Potassium 4.5 D (3.5-5.1) mmol/L Chloride 93 L (98-107) mmol/L Carbon Dioxide 25 (21-32) mmol/L Anion Gap 7 (3-11) BUN 15 (6-23) mg/dl Creatinine 0.79 (0.6-1.4) mg/dl Est Cr Clr Drug Dosing 78.7 Est GFR ( Amer) 104.7 ml/min Est GFR (Non-Af Amer) 90.3 ml/min BUN/Creatinine Ratio 19.0 (10-20) Glucose 128 H (70-99(Fasting)) mg/dl POC Glucose 146 H 132 H (70-99) mg/dl Osmolality (280-300) mOsm/kg Calcium 8.1 L (8.5-10.1) mg/dl Magnesium (1.7-2.4) mg/dl Total Bilirubin (0.2-1.0) mg/dl AST (13-39) U/L ALT (7-52) U/L Alkaline Phosphatase (34-104) U/L Troponin I High Sens (0-20) pg/ml B-Natriuretic Peptide (0-100) pg/ml Total Protein (6.0-8.3) gm/dl Albumin (3.4-5.0) gm/dl Globulin (2.5-4.0) gm/dl Albumin/Globulin Ratio (0.9-2) Prealbumin (20-40) mg/dl Urine Osmolality (500-800) mOsm/kg SARS-CoV-2 (PCR) (Negative) Influenza Type A (PCR) (Neg) Influenza Type B (PCR) (Neg) RSV (RT-PCR) (Neg) 03/09/22 03/09/22 03/09/22 Range/Units 08:42 07:26 05:29 WBC (4.8-10.8) K/ul RBC (4.63-6.08) M/uL Hgb (14.0-18.0) g/dl Hct (40.1-51.0) % MCV (80.0-100.0) fL MCH (25.0-34.0) pg MCHC (32.0-36.0) g/dL RDW Std Deviation (36.4-46.3) fL RDW Coeff of Timbo (11.5-14.5) % Plt Count (130-400) K/uL MPV (9.4-12.4) fL Immature Gran % (Auto) % Neut % (Auto) % Lymph % (Auto) % [place] % (Auto) % Eos % (Auto) % Baso % (Auto) % Neut # (Auto) (1.4-6.5) K/uL Lymph # (Auto) (1.2-3.4) K/uL [place] # (Auto) (0.24-0.82) K/uL Eos # (Auto) (0-0.50) K/uL Baso # (Auto) (0-0.2) K/uL Immature Gran # (Auto) (0.00-0.02) K/uL RBC Morphology PT (9.0-12.0) Seconds INR (0.9-1.1) APTT (21.0-31.0) Seconds PTT Ratio VBG pH 7.41 (7.36-7.41) VBG pCO2 41 (38-50) mmHg VBG pO2 48 mmHg VBG HCO3 26 mmol/L VBG O2 Saturation 71.5 % VBG Base Excess 1.2 mEq/L Sodium (136-145) mmol/L Potassium (3.5-5.1) mmol/L Chloride (98-107) mmol/L Carbon Dioxide (21-32) mmol/L Anion Gap (3-11) BUN (6-23) mg/dl Creatinine (0.6-1.4) mg/dl Est Cr Clr Drug Dosing Est GFR ( Amer) ml/min Est GFR (Non-Af Amer) ml/min BUN/Creatinine Ratio (10-20) Glucose (70-99(Fasting)) mg/dl POC Glucose 152 H (70-99) mg/dl Osmolality (280-300) mOsm/kg Calcium (8.5-10.1) mg/dl Magnesium (1.7-2.4) mg/dl Total Bilirubin (0.2-1.0) mg/dl AST (13-39) U/L ALT (7-52) U/L Alkaline Phosphatase (34-104) U/L Troponin I High Sens (0-20) pg/ml B-Natriuretic Peptide (0-100) pg/ml Total Protein (6.0-8.3) gm/dl Albumin (3.4-5.0) gm/dl Globulin (2.5-4.0) gm/dl Albumin/Globulin Ratio (0.9-2) Prealbumin (20-40) mg/dl Urine Osmolality 359 L (500-800) mOsm/kg SARS-CoV-2 (PCR) (Negative) Influenza Type A (PCR) (Neg) Influenza Type B (PCR) (Neg) RSV (RT-PCR) (Neg) 03/09/22 03/09/22 03/09/22 Range/Units 05:29 05:29 00:07 WBC 7.12 (4.8-10.8) K/ul RBC 3.76 L (4.63-6.08) M/uL Hgb 9.0 L (14.0-18.0) g/dl Hct 28.1 L (40.1-51.0) % MCV 74.7 L (80.0-100.0) fL MCH 23.9 L (25.0-34.0) pg MCHC 32.0 (32.0-36.0) g/dL RDW Std Deviation 51.9 H (36.4-46.3) fL RDW Coeff of Timbo 19.1 H (11.5-14.5) % Plt Count 381 (130-400) K/uL MPV 8.8 L (9.4-12.4) fL Immature Gran % (Auto) 0.4 % Neut % (Auto) 92.3 % Lymph % (Auto) 4.1 % [place] % (Auto) 3.2 % Eos % (Auto) 0.0 % Baso % (Auto) 0.0 % Neut # (Auto) 6.57 H (1.4-6.5) K/uL Lymph # (Auto) 0.29 L (1.2-3.4) K/uL [place] # (Auto) 0.23 L (0.24-0.82) K/uL Eos # (Auto) 0.00 (0-0.50) K/uL Baso # (Auto) 0.00 (0-0.2) K/uL Immature Gran # (Auto) 0.03 H (0.00-0.02) K/uL RBC Morphology Unremarkable PT (9.0-12.0) Seconds INR (0.9-1.1) APTT (21.0-31.0) Seconds PTT Ratio VBG pH (7.36-7.41) VBG pCO2 (38-50) mmHg VBG pO2 mmHg VBG HCO3 mmol/L VBG O2 Saturation % VBG Base Excess mEq/L Sodium 125 L (136-145) mmol/L Potassium 3.0 L (3.5-5.1) mmol/L Chloride 90 L (98-107) mmol/L Carbon Dioxide 25 (21-32) mmol/L Anion Gap 10 (3-11) BUN 16 (6-23) mg/dl Creatinine 0.88 (0.6-1.4) mg/dl Est Cr Clr Drug Dosing 70.6 Est GFR ( Amer) 100.2 ml/min Est GFR (Non-Af Amer) 86.4 ml/min BUN/Creatinine Ratio 18.2 (10-20) Glucose 156 H (70-99(Fasting)) mg/dl POC Glucose (70-99) mg/dl Osmolality (280-300) mOsm/kg Calcium 8.2 L (8.5-10.1) mg/dl Magnesium 2.0 (1.7-2.4) mg/dl Total Bilirubin (0.2-1.0) mg/dl AST (13-39) U/L ALT (7-52) U/L Alkaline Phosphatase (34-104) U/L Troponin I High Sens (0-20) pg/ml B-Natriuretic Peptide (0-100) pg/ml Total Protein (6.0-8.3) gm/dl Albumin (3.4-5.0) gm/dl Globulin (2.5-4.0) gm/dl Albumin/Globulin Ratio (0.9-2) Prealbumin 16.5 L (20-40) mg/dl Urine Osmolality (500-800) mOsm/kg SARS-CoV-2 (PCR) NEGATIVE (Negative) Influenza Type A (PCR) Negative (Neg) Influenza Type B (PCR) Negative (Neg) RSV (RT-PCR) Negative (Neg) 03/08/22 03/08/22 03/08/22 Range/Units 22:30 21:52 21:35 WBC (4.8-10.8) K/ul RBC (4.63-6.08) M/uL Hgb (14.0-18.0) g/dl Hct (40.1-51.0) % MCV (80.0-100.0) fL MCH (25.0-34.0) pg MCHC (32.0-36.0) g/dL RDW Std Deviation (36.4-46.3) fL RDW Coeff of Timbo (11.5-14.5) % Plt Count (130-400) K/uL MPV (9.4-12.4) fL Immature Gran % (Auto) % Neut % (Auto) % Lymph % (Auto) % [place] % (Auto) % Eos % (Auto) % Baso % (Auto) % Neut # (Auto) (1.4-6.5) K/uL Lymph # (Auto) (1.2-3.4) K/uL [place] # (Auto) (0.24-0.82) K/uL Eos # (Auto) (0-0.50) K/uL Baso # (Auto) (0-0.2) K/uL Immature Gran # (Auto) (0.00-0.02) K/uL RBC Morphology PT (9.0-12.0) Seconds INR (0.9-1.1) APTT (21.0-31.0) Seconds PTT Ratio VBG pH 7.56 H (7.36-7.41) VBG pCO2 27 L (38-50) mmHg VBG pO2 43 mmHg VBG HCO3 24 mmol/L VBG O2 Saturation 74.0 % VBG Base Excess 3.0 mEq/L Sodium (136-145) mmol/L Potassium (3.5-5.1) mmol/L Chloride (98-107) mmol/L Carbon Dioxide (21-32) mmol/L Anion Gap (3-11) BUN (6-23) mg/dl Creatinine (0.6-1.4) mg/dl Est Cr Clr Drug Dosing Est GFR ( Amer) ml/min Est GFR (Non-Af Amer) ml/min BUN/Creatinine Ratio (10-20) Glucose (70-99(Fasting)) mg/dl POC Glucose (70-99) mg/dl Osmolality 268 L (280-300) mOsm/kg Calcium (8.5-10.1) mg/dl Magnesium (1.7-2.4) mg/dl Total Bilirubin (0.2-1.0) mg/dl AST (13-39) U/L ALT (7-52) U/L Alkaline Phosphatase (34-104) U/L Troponin I High Sens (0-20) pg/ml B-Natriuretic Peptide 33 (0-100) pg/ml Total Protein (6.0-8.3) gm/dl Albumin (3.4-5.0) gm/dl Globulin (2.5-4.0) gm/dl Albumin/Globulin Ratio (0.9-2) Prealbumin (20-40) mg/dl Urine Osmolality (500-800) mOsm/kg SARS-CoV-2 (PCR) (Negative) Influenza Type A (PCR) (Neg) Influenza Type B (PCR) (Neg) RSV (RT-PCR) (Neg) 03/08/22 03/08/22 03/08/22 Range/Units 21:35 21:35 21:35 WBC 8.67 (4.8-10.8) K/ul RBC 3.96 L (4.63-6.08) M/uL Hgb 9.5 L (14.0-18.0) g/dl Hct 29.8 L (40.1-51.0) % MCV 75.3 L (80.0-100.0) fL MCH 24.0 L (25.0-34.0) pg MCHC 31.9 L (32.0-36.0) g/dL RDW Std Deviation 51.4 H (36.4-46.3) fL RDW Coeff of Timbo 18.9 H (11.5-14.5) % Plt Count 384 (130-400) K/uL MPV 8.4 L (9.4-12.4) fL Immature Gran % (Auto) 0.7 % Neut % (Auto) 77.2 % Lymph % (Auto) 12.3 % [place] % (Auto) 9.5 % Eos % (Auto) 0.1 % Baso % (Auto) 0.2 % Neut # (Auto) 6.69 H (1.4-6.5) K/uL Lymph # (Auto) 1.07 L (1.2-3.4) K/uL [place] # (Auto) 0.82 (0.24-0.82) K/uL Eos # (Auto) 0.01 (0-0.50) K/uL Baso # (Auto) 0.02 (0-0.2) K/uL Immature Gran # (Auto) 0.06 H (0.00-0.02) K/uL RBC Morphology PT 12.1 H (9.0-12.0) Seconds INR 1.1 (0.9-1.1) APTT 34.0 H (21.0-31.0) Seconds PTT Ratio 1.2 VBG pH (7.36-7.41) VBG pCO2 (38-50) mmHg VBG pO2 mmHg VBG HCO3 mmol/L VBG O2 Saturation % VBG Base Excess mEq/L Sodium 128 L (136-145) mmol/L Potassium 2.9 L (3.5-5.1) mmol/L Chloride 90 L (98-107) mmol/L Carbon Dioxide 27 (21-32) mmol/L Anion Gap 11 (3-11) BUN 18 (6-23) mg/dl Creatinine 1.04 (0.6-1.4) mg/dl Est Cr Clr Drug Dosing Not Reportable Est GFR ( Amer) 83.3 ml/min Est GFR (Non-Af Amer) 71.9 ml/min BUN/Creatinine Ratio 17.3 (10-20) Glucose 100 H (70-99(Fasting)) mg/dl POC Glucose (70-99) mg/dl Osmolality (280-300) mOsm/kg Calcium 8.5 (8.5-10.1) mg/dl Magnesium 2.0 (1.7-2.4) mg/dl Total Bilirubin 0.3 (0.2-1.0) mg/dl AST 29 (13-39) U/L ALT 22 (7-52) U/L Alkaline Phosphatase 135 H (34-104) U/L Troponin I High Sens 10.4 (0-20) pg/ml B-Natriuretic Peptide (0-100) pg/ml Total Protein 7.5 (6.0-8.3) gm/dl Albumin 3.3 L (3.4-5.0) gm/dl Globulin 4.2 H (2.5-4.0) gm/dl Albumin/Globulin Ratio 0.8 L (0.9-2) Prealbumin (20-40) mg/dl Urine Osmolality (500-800) mOsm/kg SARS-CoV-2 (PCR) (Negative) Influenza Type A (PCR) (Neg) Influenza Type B (PCR) (Neg) RSV (RT-PCR) (Neg) Resident Activity Tracking Resident Involvement: Resident Care Provided Care Provided: Adult Hospital Medicine (1) Anemia Anemia type: unspecified type Qualified Code(s): D64.9 - Anemia, unspecified
[2022-03-09] MEDS: SODIUM CHLORIDE 1 GM TABLET PO SCH (20:16)
[2022-03-09] MEDS: traZODone HCL 50 MG TAB PO SCH (20:18)
[2022-03-09] MEDS: CHLORZOXAZONE 500 MG TAB PO SCH (20:19)
[2022-03-09] MEDS: LATANOPROST 0.005% OP SOLN 2.5 ML BTL OP SCH (20:24)
[2022-03-10] MEDS: AZITHROMYCIN 500 MG in DEXTROSE 5% 250 ML IV SCH (00:07)
[2022-03-10 00:46] LABS: Efaecalis Not Reported Not Detected (NotDetected); Efaecium Not Reported Not Detected (NotDetected); Lmonocyt Not Reported Not Detected (NotDetected); Staph spp. Not Reported DETECTED (NotDetected)
[2022-03-10] MEDS: ALBUT/IPRATROP 3MG/0.5MG NEB 3 ML VIAL INH SCH ×2 (00:46→07:04)
[2022-03-10 00:47] LABS: A calco-baum cmplx NotReported Not Detected (NotDetected); Bact fragilis Not Reported Not Detected (NotDetected); C auris Not Reported Not Detected (NotDetected); Calbicans Not Reported Not Detected (NotDetected); Candida glabrata Not Reported Not Detected (NotDetected); Candida krusei Not Reported Not Detected (NotDetected); Cneoformans/gatti Not Reported Not Detected (NotDetected); Cparapsilosis Not Reported Not Detected (NotDetected); Ctropicalis Not Reported Not Detected (NotDetected); E cloacae compx Not Reported Not Detected (NotDetected); Enterobacterales Not Reported Not Detected (NotDetected); Escherichia coli Not Reported Not Detected (NotDetected); H influenzae Not Reported Not Detected (NotDetected); K aerogenes Not Reported Not Detected (NotDetected); Koxytoca Not Reported Not Detected (NotDetected); Kpneumoniae grp Not Reported Not Detected (NotDetected); N meningitidis Not Reported Not Detected (NotDetected); P aeruginosa Not Reported Not Detected (NotDetected); Proteus spp Not Reported Not Detected (NotDetected); Salmonella spp Not Reported Not Detected (NotDetected); Smarcescens Not Reported Not Detected (NotDetected); Staph lugdunensis Not Reported Not Detected (NotDetected); Staphaureus Not Reported Not Detected (NotDetected); Staphepi Not Reported Not Detected (NotDetected); Stenmaltophilia Not Reported Not Detected (NotDetected); Strep agal(GrpB) Not Reported Not Detected (NotDetected); Strep pneum Not Reported Not Detected (NotDetected); Strep pyog (GrpA) Not Reported Not Detected (NotDetected); Strep spp Not Reported Not Detected (NotDetected)
[2022-03-10 01:03] LABS: Staphylococcus spp. DETECTED (NotDetected)
--- NOTE | 2022-03-10 01:58 | Billing Data ---
Date of Service March 10, 2022 Coding Level of Care Code 95854 Initial Inpt Care Lvl 3
[2022-03-10] MEDS: methylPREDNISolone 40 MG in SYRINGE 0 ML IV SCH ×3 (05:38→21:27)
[2022-03-10] MEDS ORDERED: VANCOMYCIN CONSULT ACTIVE PRN (08:42)
[2022-03-10] MEDS: buPROPion HCl 100 MG TABLET PO SCH ×2 (08:51→20:33)
[2022-03-10] MEDS: CLOPIDOGREL BISULFATE 75 MG TAB PO SCH (08:51)
[2022-03-10] MEDS: ATORVASTATIN 40 MG TAB PO SCH (08:51)
[2022-03-10] MEDS: BRIMONIDINE TARTRATE 0.2% 5ML OP SCH ×2 (08:51→20:39)
[2022-03-10] MEDS: FLUTICASONE/VILANTEROL 100/25MCG 14 PUFFS/INHALER INH SCH ×2 (08:52→20:32)
[2022-03-10] MEDS: DORZOLAMIDE/TIMOLOL 22.3/6.8MG/ML 10 ML BTL OP SCH ×3 (08:52→20:39)
[2022-03-10] MEDS: FERROUS SULFATE 325 MG TAB PO SCH (08:52)
[2022-03-10] MEDS: guaiFENesin 600 MG TABCR PO SCH ×2 (08:53→20:33)
[2022-03-10] MEDS: GABAPENTIN 400 MG CAP PO SCH ×3 (08:53→20:36)
[2022-03-10] MEDS: METOPROLOL TARTRATE 25 MG TAB PO SCH ×2 (08:54→20:36)
[2022-03-10] MEDS: prednisoLONE acetate 1% OP SUSP 5 ML BTL OP SCH ×3 (08:54→20:40)
[2022-03-10] MEDS: SODIUM CHLORIDE 1 GM TABLET PO SCH (08:54)
[2022-03-10] MEDS: PANTOprazole 40 MG TAB PO SCH (08:54)
[2022-03-10 08:55] LABS: Hematocrit (blood only) 32.8 % (40.1-51.0); Mean Corpuscular Hemoglobin 23.8 pg (25.0-34.0); Mean Corpuscular Hgb Conc 30.5 g/dL (32.0-36.0); Mean Corpuscular Volume 78.1 fL (80.0-100.0); Mean Platelet Volume 8.4 fL (9.4-12.4); Platelet Count 428 K/uL (130-400); RDW Coefficient of Variation 19.1 % (11.5-14.5); RDW Standard Deviation 54.4 fL (36.4-46.3); White Blood Count 11.31 K/ul (4.8-10.8)
[2022-03-10] MEDS: SULFAMETHOXAZOLE/TRIMETHOPRIM DS 800/160MG TAB PO SCH ×2 (08:55→20:35)
[2022-03-10] MEDS: oxyCODONE/ACETAMINOPHEN 5mg/325mg TAB PO PRN ×2 (08:58→16:12)
[2022-03-10 09:08] LABS: Albumin Globulin Ratio 0.8 (0.9-2); Albumin Level 3.4 gm/dl (3.4-5.0); BUN Creatinine Ratio 20.7 (10-20); Bilirubin,Total 0.3 mg/dl (0.2-1.0); C Reactive Protein 5.63 mg/dl (0-0.5); Calcium 9.1 mg/dl (8.5-10.1); Est GFR (African American) 103.1 ml/min; Globulin 4.5 gm/dl (2.5-4.0); Potassium 3.8 mmol/L (3.5-5.1); Total Protein 7.9 gm/dl (6.0-8.3)
[2022-03-10 09:11] LABS: Basophils # (auto) 0.01 K/uL (0-0.2); Basophils % (auto) 0.1 %; Immature Granulocytes # (auto) 0.05 K/uL (0.00-0.02); Immature Granulocytes % (auto) 0.4 %; Lymphocytes # (auto) 0.36 K/uL (1.2-3.4); Lymphocytes % (auto) 3.2 %; Monocytes # (auto) 0.11 K/uL (0.24-0.82); Neutrophils # (auto) 10.78 K/uL (1.4-6.5); Neutrophils % (auto) 95.3 %
[2022-03-10] MEDS ORDERED: ALBUTEROL HFA 8 GM INHALER INH PRN (09:52)
[2022-03-10] MEDS ORDERED: VANCOMYCIN HCL 1,500 MG in SODIUM CHLORIDE 0.9% 500 ML IV ONE (10:00)
[2022-03-10] MEDS: ACETAMINOPHEN 325 MG TAB PO PRN ×2 (10:46→20:37)
--- NOTE | 2022-03-10 12:53 | Pharmacy Report ---
Pharmacy PK ABX Note - Date of Service March 10, 2022 - Assessment and Plan Assessment 71 year old M receiving vancomycin for treatment of bacteremia. Pertinent microbiologic data includes: blood culture growing Gram positive cocci with Biofire indicating coag negative staph. Day # 1 of antimicrobial therapy. Plan Vancomycin * Loading dose: 1500 mg IV x 1 (25 mg/kg) * Maintenance dose: 1000 mg IV every 12 hours (15 mg/kg) * Regimen is predicted to achieve target AUC/DANA of 400-600 mg/L.hr * Random level ordered for: 03/11/22 Pharmacy will continue to follow and will adjust dose/frequency as necessary. Thank you. Pharmacy has transitioned to AUC monitoring for vancomycin. AUC/DANA is the preferred PK/PD target and is associated with decreased risk of nephrotoxicity compared to traditional trough targets.
[2022-03-10 17:23] LABS: Appearance Urine Clear (Clear); Bilirubin Urine Negative (Negative); Blood Urine Negative (Negative); Color Urine Yellow; Glucose Urine UA Negative (Negative); Ketones Urine Negative (Negative); Leukocyte Esterase Urine Negative (Negative); Nitrite Urine Negative (Negative); Protein Urine Negative (Negative); Specific Gravity Urine 1.023 (1.000-1.030); Urobilinogen Urine Negative (Negative)
[2022-03-10] MEDS ORDERED: ceFAZolin 2000MG 2,000 MG/15 ML SYR IV SCH (17:45)
--- NOTE | 2022-03-10 19:16 | Hospitalist Progress Note ---
Date of Service March 10, 2022 Assessment & Plan (1) Acute on chronic respiratory failure: Plan: Brennan Saunders is a 71yo male with complex PMHx significant for chronic HFpEF (last EF 65-70% in 10/2021), chronic bilateral pleural effusions (with several thoracenteses done here, with h/o hemothorax and pneumothorax), pulmonary hypertension, chronic respiratory failure (on intermittent home O2), CAD, paroxysmal a-fib (on BB, no AC), PAD (s/p LLE angioplasty with stenting, on Plavix), iron deficiency anemia, h/o esophageal varices and ?cirrhosis, protein calorie malnutrition, chronic bilateral 1st toe ulcers, chronic left hip osteomyelitis, HLD and depression, who presented to [facility] on 03/09 due to dyspnea. Acute on Chronic Hypoxemic Respiratory Failure Worsening dyspnea/cough following upper respiratory infection ~1 week ago. Hypoxic on presentation requiring 5L/min NC. CTA chest with scattered right- sided opacities suspicious for atypical pneumonia. There is a small right pleural effusion but it appears much smaller than previous CTs - do not suspect this is significantly contributing to current condition. COVID-19 negative. - Initial VBG showing respiratory alkalosis (pH 7.56, pCO2 27), BiPaP initiated --> VBG improved, bipap d/c'd, currently on RA - CXR: R pleural effusion with associated right basilar consolidation, L lung clear noting basilar scarring/atelectasis - CTA chest: no PE, some ground glass and nodular densities, small R pleural effusion decreased from prior - received SoluMedrol 125mg IV x1 in ED - continue with 40mg IV Q8H - scheduled Breo Ellipta BID and albuterol BID prn - received CTX 1g IV and Azithromycin 500mg IV in ED - continue Azithromycin monotherapy as there is no consolidation on CTA chest - pulmonary toilet: flutter valve, incentive spirometer, Mucinex 1200mg PO BID - PT ordered Electrolyte Abnormalities On admission Na 128, K 2.9, Cl 90. Suspect 2/2 to diuretics in addition to chronic poor PO intake and malnutrition. SIADH in context of pneumonia also may be contributing - replenished K, repeat wnl - Na 132 (03/10), stable - d/c'd LR @80cc/hr x1L - hold home Lasix and Metolazone - 1.5L fluid restriction - trend in AM Mass on Left Gómez -suspect soft tissue based, h/o of falls -ordered US soft tissue left lower leg Chronic bilateral 1st toe ulcers, chronic -follows with vascular outpatient -wound care consulted -US arterial duplex LE left: extensive atherosclerotic calcification, marked stenosis of distal superficial femoral artery Contaminant Bacteremia -blood cx grew gram positive cocci clusters in 1 tube; PCR neg for MRSA, staph aureus, epidermis, lugdunensis; MRSA nasal screen neg -vancomycin d/c'd, no abx for now due to low concern for bacterial infection -repeat blood cx pending CAD/PAD -continue home Atorvastatin and Plavix Chronic HFpEF -Last EF 65-70% in 10/2021. Euvolemic on exam. Hold home Lasix/Metolazone as stated above Iron Deficiency Anemia -Hgb 9.5 admission, microcytic/hypochromic, at chronic baseline. -Repeat Hgb 9, cont. to monitor -Continue daily ferrous sulfate Paroxysmal A-fib -continue home Metoprolol Chronic left hip osteomyelitis -continue Bactrim ppx Chronic pain/OA/muscle spasms -on chronic pain medications - continue home PRN Percocet, Lidocaine patch, scheduled Gabapentin and Chlorzoxazone Chronic Protein Calorie Malnutrition - severe -encourage PO intake -consider dietary consult -prealbumin low, 16.5 GERD -continue home Protonix Depression -continue home Wellbutrin Insomnia -continue home Trazodone DVT ppx: SCDs and home Plavix FEN/GI: HH Code Status: Full Dispo: PCU/tele (2) Hyponatremia: (3) Hypokalemia: (4) Anemia: (5) Afib: (6) Bilateral pleural effusion: (7) Arthritis of multiple sites: (8) Hypoalbuminemia due to protein-calorie malnutrition: (9) Pulmonary hypertension: (10) History of hip surgery: (11) CAD (coronary artery disease): (12) PAD (peripheral artery disease): (13) Chronic osteomyelitis of hip: (14) Hyperlipidemia: (15) Chronic ulcer of great toe: Admission and Anticipated Discharge Date Admission Date: March 09, 2022 Supervising Physician Co-Signing Physician Notes Patient seen and examined with PGY-2 Dr. Fan. Agree with history, exam findings, assessment and plan of care as outlined. In brief, Mr. Saunders is a 71 year old male with hx of HFpEF, chronic bilateral pleural effusions, pulmonary HTN, chronic respiratory failure, CAD, pAF, PAD (hx of LLE angioplasty with stent), cirrhosis with esophageal varices, chronic left hip osteomyelitis admitted with acute on chronic respiratory failure. Today, feels that breathing has continued to improve. Toes do get painful (has known PAD) and the necrotic areas on the great toes have not enlarged. Pain does tend to improve if he lets his legs dangle. Pain medication doesn't tend to do much for him in this regard. He does follow with a vascular surgeon with the [place] in [place]. Was scheduled to have an intervention done tomorrow. Does have a history of MRSA in the hip (chronic osteomyelitis) and very reliable with with taking suppressive Bactrim. Does note some swelling of the left anterior proximal gómez. Does not recall trauma, although his , at the bedside, reports that he has had several falls. He typically gets around with crutches. Did try using a walker but causes pain in the right shoulder (actually was supposed to have the shoulder replaced). At baseline has limited range of motion of that shoulder due to pain. VS and nursing notes reviewed. Non-toxic appearing. Heart is irregular. Trace edema of the bilateral lower extremities. Breathing is unlabored. Good air movement throughout. Coarse breath sounds. Left lower extremity with soft, fluctuant area of the proximal anterior gómez. No ecchymosis. Bilateral great toes with dry gangrene. Labs and imaging reviewed 1. Acute on chronic hypoxemic respiratory failure. Required 5L NC on presentation on to the emergency room, now on room air. CTA with scattered right-sided opacities concerning for atypical pneumonia. COVID-19 negative. Solumedrol 40mg IV q8h, duonebs q6h and q2h PRN. Continue with azithromycin. Flutter valve, Mucinex. 2. Positive blood culture. 1/2 bottles with gram positive in clusters--likely coag neg staph based on [employer]. nasal MRSA is negative. Stop antibtiocs for now given that this is likely contaminant. Repeat blood cultures pending. 4. left gómez lump. Likely hematoma, but soft tissue ultrasound requested to help better characterize this. 5. Electrolyte derangement. Na 128, K 2.9, Cl 90. Secondary to diuretic use and SIADH due to concomitant pneumonia. IVFs. Holding home Lasix and metolazone. 6. falls. PT/OT requested. 7. CAD/PAD. Continue home Plavix and atorvastatin. 8. HFpEF. Not in exacerbation. EF 65-70 in October 2021. Euvolemic. 9. pAF. Rate controlled. Continue home metoprolol. 10. Chronic left hip osteomyelitis. Continue Bactrim. 11. Chronic pain, OA, muscle spasms. Continue home PRN Percocet, lidocaine patch; scheduled gabapentin and chlorzoxazone. Dispo: pending PT/OT and clinical improvement. Subjective Patient seen at bedside this morning. Feeling well today, now on room air. Does have some weakness when ambulating but will try walker tomorrow with PT. Complaining of bilateral toe pain from his chronic ulcers. Also complains of this bump on his left gómez that has been present for the past 1-2 weeks. Otherwise feels the best he has in the past month. Has more of an appetite in the hospital than he has at home. Denies chest pain, SOB, BARRETO, N/V, abdominal pain, dysuria. Review of Systems Review of Systems: All systems reviewed & are unremarkable except as noted in HPI & below Physical Exam Physical Exam: General: A&Ox3. in no acute distress. Cooperative. Thin. HEENT: Atraumatic, normocephalic. Pulm: Mild diffuse expiratory wheezing. No rales or rhonchi appreciated. No increased work of breathing. No accessory muscle use. Cardiac: RRR, no murmurs. Radial pulses intact and symmetrical. No LE pretibial edema. Abdominal: soft, mild LLQ abd tenderness, nondistended, no guarding, +BS Skin: warm, dry. 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 Nonerythematous soft tissue mass on left gómez. Results & Data Results & Data ([facility]) Vital Signs (Past 12 Hours) Vital Signs Temp Pulse Resp BP BP Pulse Ox O2 Del Method 03/10/22 15:27 36.6 C 71 18 119/74 98 Room Air 03/10/22 08:00 Room Air 03/10/22 11:15 36.5 C 70 19 106/66 97 Room Air 03/10/22 07:17 36.4 C L 70 17 118/73 98 Room Air Laboratory Results 03/10/22 03/10/2222 Range/Units 16:13 16:12 11:12 WBC (4.8-10.8) K/ul RBC (4.63-6.08) M/uL Hgb (14.0-18.0) g/dl Hct (40.1-51.0) % MCV (80.0-100.0) fL MCH (25.0-34.0) pg MCHC (32.0-36.0) g/dL RDW Std Deviation (36.4-46.3) fL RDW Coeff of Timbo (11.5-14.5) % Plt Count (130-400) K/uL MPV (9.4-12.4) fL Immature Gran % (Auto) % Neut % (Auto) % Lymph % (Auto) % [place] % (Auto) % Eos % (Auto) % Baso % (Auto) % Neut # (Auto) (1.4-6.5) K/uL Lymph # (Auto) (1.2-3.4) K/uL [place] # (Auto) (0.24-0.82) K/uL Eos # (Auto) (0-0.50) K/uL Baso # (Auto) (0-0.2) K/uL Immature Gran # (Auto) (0.00-0.02) K/uL Sodium (136-145) mmol/L Potassium (3.5-5.1) mmol/L Chloride (98-107) mmol/L Carbon Dioxide (21-32) mmol/L Anion Gap (3-11) BUN (6-23) mg/dl Creatinine (0.6-1.4) mg/dl Est Cr Clr Drug Dosing ml/min Est GFR ( Amer) ml/min Est GFR (Non-Af Amer) ml/min BUN/Creatinine Ratio (10-20) Glucose (70-99(Fasting)) mg/dl POC Glucose 150 H 154 H (70-99) mg/dl Lactate (0.4-2.0) mmol/L Calcium (8.5-10.1) mg/dl Total Bilirubin (0.2-1.0) mg/dl AST (13-39) U/L ALT (7-52) U/L Alkaline Phosphatase (34-104) U/L C-Reactive Protein (0-0.5) mg/dl Total Protein (6.0-8.3) gm/dl Albumin (3.4-5.0) gm/dl Globulin (2.5-4.0) gm/dl Albumin/Globulin Ratio (0.9-2) Procalcitonin (0-0.5) ng/ml Urine Color Yellow Urine Appearance Clear (Clear) Urine pH 6.0 (4.5-7.5) Ur Specific [place] 1.023 (1.000-1.030) Urine Protein Negative (Negative) Urine Glucose (UA) Negative (Negative) Urine Ketones Negative (Negative) Urine Blood Negative (Negative) Urine Nitrite Negative (Negative) Urine Bilirubin Negative (Negative) Urine Urobilinogen Negative (Negative) Ur Leukocyte Esterase Negative (Negative) Nasal Screen MRSA (PCR) (Negative) Staphylococcus sp PCR (NotDetected) Bld Cult ID Panel PCR (NotDetected) 03/10/22 03/10/22 03/10/22 Range/Units 10:49 10:00 09:00 WBC (4.8-10.8) K/ul RBC (4.63-6.08) M/uL Hgb (14.0-18.0) g/dl Hct (40.1-51.0) % MCV (80.0-100.0) fL MCH (25.0-34.0) pg MCHC (32.0-36.0) g/dL RDW Std Deviation (36.4-46.3) fL RDW Coeff of Timbo (11.5-14.5) % Plt Count (130-400) K/uL MPV (9.4-12.4) fL Immature Gran % (Auto) % Neut % (Auto) % Lymph % (Auto) % [place] % (Auto) % Eos % (Auto) % Baso % (Auto) % Neut # (Auto) (1.4-6.5) K/uL Lymph # (Auto) (1.2-3.4) K/uL [place] # (Auto) (0.24-0.82) K/uL Eos # (Auto) (0-0.50) K/uL Baso # (Auto) (0-0.2) K/uL Immature Gran # (Auto) (0.00-0.02) K/uL Sodium (136-145) mmol/L Potassium (3.5-5.1) mmol/L Chloride (98-107) mmol/L Carbon Dioxide (21-32) mmol/L Anion Gap (3-11) BUN (6-23) mg/dl Creatinine (0.6-1.4) mg/dl Est Cr Clr Drug Dosing ml/min Est GFR ( Amer) ml/min Est GFR (Non-Af Amer) ml/min BUN/Creatinine Ratio (10-20) Glucose (70-99(Fasting)) mg/dl POC Glucose (70-99) mg/dl Lactate 1.9 2.4 H* (0.4-2.0) mmol/L Calcium (8.5-10.1) mg/dl Total Bilirubin (0.2-1.0) mg/dl AST (13-39) U/L ALT (7-52) U/L Alkaline Phosphatase (34-104) U/L C-Reactive Protein (0-0.5) mg/dl Total Protein (6.0-8.3) gm/dl Albumin (3.4-5.0) gm/dl Globulin (2.5-4.0) gm/dl Albumin/Globulin Ratio (0.9-2) Procalcitonin (0-0.5) ng/ml Urine Color Urine Appearance (Clear) Urine pH (4.5-7.5) Ur Specific [place] (1.000-1.030) Urine Protein (Negative) Urine Glucose (UA) (Negative) Urine Ketones (Negative) Urine Blood (Negative) Urine Nitrite (Negative) Urine Bilirubin (Negative) Urine Urobilinogen (Negative) Ur Leukocyte Esterase (Negative) Nasal Screen MRSA (PCR) Negative (Negative) Staphylococcus sp PCR (NotDetected) Bld Cult ID Panel PCR (NotDetected) 03/10/22 03/10/22 03/10/22 Range/Units 08:09 08:09 08:09 WBC 11.31 H (4.8-10.8) K/ul RBC 4.20 L (4.63-6.08) M/uL Hgb 10.0 L (14.0-18.0) g/dl Hct 32.8 L (40.1-51.0) % MCV 78.1 L (80.0-100.0) fL MCH 23.8 L (25.0-34.0) pg MCHC 30.5 L (32.0-36.0) g/dL RDW Std Deviation 54.4 H (36.4-46.3) fL RDW Coeff of Timbo 19.1 H (11.5-14.5) % Plt Count 428 H (130-400) K/uL MPV 8.4 L (9.4-12.4) fL Immature Gran % (Auto) 0.4 % Neut % (Auto) 95.3 % Lymph % (Auto) 3.2 % [place] % (Auto) 1.0 % Eos % (Auto) 0.0 % Baso % (Auto) 0.1 % Neut # (Auto) 10.78 H (1.4-6.5) K/uL Lymph # (Auto) 0.36 L (1.2-3.4) K/uL [place] # (Auto) 0.11 L (0.24-0.82) K/uL Eos # (Auto) 0.00 (0-0.50) K/uL Baso # (Auto) 0.01 (0-0.2) K/uL Immature Gran # (Auto) 0.05 H (0.00-0.02) K/uL Sodium 132 L (136-145) mmol/L Potassium 3.8 (3.5-5.1) mmol/L Chloride 97 L (98-107) mmol/L Carbon Dioxide 28 (21-32) mmol/L Anion Gap 7 (3-11) BUN 17 (6-23) mg/dl Creatinine 0.82 (0.6-1.4) mg/dl Est Cr Clr Drug Dosing 76.0 ml/min Est GFR ( Amer) 103.1 ml/min Est GFR (Non-Af Amer) 89.0 ml/min BUN/Creatinine Ratio 20.7 H (10-20) Glucose 133 H (70-99(Fasting)) mg/dl POC Glucose (70-99) mg/dl Lactate (0.4-2.0) mmol/L Calcium 9.1 (8.5-10.1) mg/dl Total Bilirubin 0.3 (0.2-1.0) mg/dl AST 24 (13-39) U/L ALT 24 (7-52) U/L Alkaline Phosphatase 137 H (34-104) U/L C-Reactive Protein 5.63 H (0-0.5) mg/dl Total Protein 7.9 (6.0-8.3) gm/dl Albumin 3.4 (3.4-5.0) gm/dl Globulin 4.5 H (2.5-4.0) gm/dl Albumin/Globulin Ratio 0.8 L (0.9-2) Procalcitonin 0.08 (0-0.5) ng/ml Urine Color Urine Appearance (Clear) Urine pH (4.5-7.5) Ur Specific [place] (1.000-1.030) Urine Protein (Negative) Urine Glucose (UA) (Negative) Urine Ketones (Negative) Urine Blood (Negative) Urine Nitrite (Negative) Urine Bilirubin (Negative) Urine Urobilinogen (Negative) Ur Leukocyte Esterase (Negative) Nasal Screen MRSA (PCR) (Negative) Staphylococcus sp PCR (NotDetected) Bld Cult ID Panel PCR (NotDetected) 03/10/22 03/09/22 03/09/22 Range/Units 07:18 20:07 00:53 WBC (4.8-10.8) K/ul RBC (4.63-6.08) M/uL Hgb (14.0-18.0) g/dl Hct (40.1-51.0) % MCV (80.0-100.0) fL MCH (25.0-34.0) pg MCHC (32.0-36.0) g/dL RDW Std Deviation (36.4-46.3) fL RDW Coeff of Timbo (11.5-14.5) % Plt Count (130-400) K/uL MPV (9.4-12.4) fL Immature Gran % (Auto) % Neut % (Auto) % Lymph % (Auto) % [place] % (Auto) % Eos % (Auto) % Baso % (Auto) % Neut # (Auto) (1.4-6.5) K/uL Lymph # (Auto) (1.2-3.4) K/uL [place] # (Auto) (0.24-0.82) K/uL Eos # (Auto) (0-0.50) K/uL Baso # (Auto) (0-0.2) K/uL Immature Gran # (Auto) (0.00-0.02) K/uL Sodium (136-145) mmol/L Potassium (3.5-5.1) mmol/L Chloride (98-107) mmol/L Carbon Dioxide (21-32) mmol/L Anion Gap (3-11) BUN (6-23) mg/dl Creatinine (0.6-1.4) mg/dl Est Cr Clr Drug Dosing ml/min Est GFR ( Amer) ml/min Est GFR (Non-Af Amer) ml/min BUN/Creatinine Ratio (10-20) Glucose (70-99(Fasting)) mg/dl POC Glucose 129 H 146 H (70-99) mg/dl Lactate (0.4-2.0) mmol/L Calcium (8.5-10.1) mg/dl Total Bilirubin (0.2-1.0) mg/dl AST (13-39) U/L ALT (7-52) U/L Alkaline Phosphatase (34-104) U/L C-Reactive Protein (0-0.5) mg/dl Total Protein (6.0-8.3) gm/dl Albumin (3.4-5.0) gm/dl Globulin (2.5-4.0) gm/dl Albumin/Globulin Ratio (0.9-2) Procalcitonin (0-0.5) ng/ml Urine Color Urine Appearance (Clear) Urine pH (4.5-7.5) Ur Specific [place] (1.000-1.030) Urine Protein (Negative) Urine Glucose (UA) (Negative) Urine Ketones (Negative) Urine Blood (Negative) Urine Nitrite (Negative) Urine Bilirubin (Negative) Urine Urobilinogen (Negative) Ur Leukocyte Esterase (Negative) Nasal Screen MRSA (PCR) (Negative) Staphylococcus sp PCR DETECTED A (NotDetected) Bld Cult ID Panel PCR See PCR Comment (NotDetected) Resident Activity Tracking Resident Involvement: Resident Care Provided Care Provided: Adult Hospital Medicine (1) Anemia Anemia type: unspecified type Qualified Code(s): D64.9 - Anemia, unspecified
[2022-03-10] MEDS: traZODone HCL 50 MG TAB PO SCH (20:33)
[2022-03-10] MEDS: CHLORZOXAZONE 500 MG TAB PO SCH (20:34)
[2022-03-10] MEDS: LATANOPROST 0.005% OP SOLN 2.5 ML BTL OP SCH (20:38)
[2022-03-10] MEDS ORDERED: VANCOMYCIN HCL 1,000 MG in SODIUM CHLORIDE 0.9% 250 ML IV SCH (22:00)
[2022-03-11] MEDS: AZITHROMYCIN 500 MG in DEXTROSE 5% 250 ML IV SCH (00:40)
[2022-03-11] MEDS: methylPREDNISolone 40 MG in SYRINGE 0 ML IV SCH ×2 (05:07→13:19)
[2022-03-11 07:54] LABS: Basophils # (auto) 0.01 K/uL (0-0.2); Basophils % (auto) 0.1 %; Hematocrit (blood only) 28.8 % (40.1-51.0); Hemoglobin 8.7 g/dl (14.0-18.0); Immature Granulocytes # (auto) 0.04 K/uL (0.00-0.02); Immature Granulocytes % (auto) 0.5 %; Lymphocytes # (auto) 0.57 K/uL (1.2-3.4); Lymphocytes % (auto) 6.7 %; Mean Corpuscular Hemoglobin 23.8 pg (25.0-34.0); Mean Corpuscular Hgb Conc 30.2 g/dL (32.0-36.0); Mean Corpuscular Volume 78.7 fL (80.0-100.0); Mean Platelet Volume 8.4 fL (9.4-12.4); Monocytes # (auto) 0.27 K/uL (0.24-0.82); Monocytes % (auto) 3.2 %; Neutrophils # (auto) 7.57 K/uL (1.4-6.5); Neutrophils % (auto) 89.5 %; Platelet Count 411 K/uL (130-400); RDW Coefficient of Variation 19.2 % (11.5-14.5); RDW Standard Deviation 54.9 fL (36.4-46.3); Red Blood Count 3.66 M/uL (4.63-6.08); White Blood Count 8.46 K/ul (4.8-10.8)
--- NOTE | 2022-03-11 07:54 | Hospitalist Progress Note ---
Date of Service March 11, 2022 Assessment & Plan (1) Acute on chronic respiratory failure: Plan: Brennan Saunders is a 71yo male with complex PMHx significant for chronic HFpEF (last EF 65-70% in 10/2021), chronic bilateral pleural effusions (with several thoracenteses done here, with h/o hemothorax and pneumothorax), pulmonary hypertension, chronic respiratory failure (on intermittent home O2), CAD, paroxysmal a-fib (on BB, no AC), PAD (s/p LLE angioplasty with stenting, on Plavix), iron deficiency anemia, h/o esophageal varices and ?cirrhosis, protein calorie malnutrition, chronic bilateral 1st toe ulcers, chronic left hip osteomyelitis, HLD and depression, who presented to [facility] ED on 03/09 due to dyspnea. Acute on Chronic Hypoxemic Respiratory Failure Worsening dyspnea/cough following upper respiratory infection ~1 week ago. Hypoxic on presentation requiring 5L/min NC. CTA chest with scattered right- sided opacities suspicious for atypical pneumonia. There is a small right pleural effusion but it appears much smaller than previous CTs - do not suspect this is significantly contributing to current condition. COVID-19 negative. - Initial VBG showing respiratory alkalosis (pH 7.56, pCO2 27), BiPaP initiated --> VBG improved, bipap d/c'd, currently on RA - CXR: R pleural effusion with associated right basilar consolidation, L lung clear noting basilar scarring/atelectasis - CTA chest: no PE, some ground glass and nodular densities, small R pleural effusion decreased from prior - received SoluMedrol 125mg IV x1 in ED; d/c'd (03/11) 40mg IV Q8H; begin taper with prednisone po 40mg bid (03/12), then prednisone po 40mg qd beginning 03/13 until discharge - scheduled Breo Ellipta BID and albuterol BID prn - received CTX 1g IV and Azithromycin 500mg IV in ED - cont. Azithromycin monotherapy as there is no consolidation on CTA chest, final dose on 03/12 - pulmonary toilet: flutter valve, incentive spirometer, Mucinex 1200mg PO BID - Cont. PT; currently with home health Electrolyte Abnormalities, improving On admission Na 128, K 2.9, Cl 90. Suspect 2/2 to diuretics in addition to chronic poor PO intake and malnutrition. SIADH in context of pneumonia also may be contributing - replenished K, repeat wnl - Na 133 (03/11), stable - d/c'd LR @80cc/hr x1L - hold home Lasix and Metolazone - 2L fluid restriction - trend in AM Mass on Left Gómez -suspect soft tissue based, h/o of falls -US soft tissue left LE: likely hematoma Chronic bilateral 1st toe ulcers, chronic -follows with vascular outpatient -wound care consulted -US arterial duplex LE left: extensive atherosclerotic calcification, marked stenosis of distal superficial femoral artery Contaminant Bacteremia -blood cx grew gram positive cocci clusters in 1 tube; PCR neg for MRSA, staph aureus, epidermis, lugdunensis; MRSA nasal screen neg -vancomycin d/c'd, no abx for now due to low concern for bacterial infection -repeat blood cx pending, no growth after 24 hours CAD/PAD -continue home Atorvastatin and Plavix Chronic HFpEF -Last EF 65-70% in 10/2021. Euvolemic on exam. Hold home Lasix/Metolazone as sta tammy above Iron Deficiency Anemia -Hgb 9.5 admission, microcytic/hypochromic, at chronic baseline. -Repeat Hgb 8.7, cont. to monitor -Continue daily ferrous sulfate Paroxysmal A-fib -continue home Metoprolol Chronic left hip osteomyelitis -continue Bactrim ppx Chronic pain/OA/muscle spasms -on chronic pain medications - continue home PRN Percocet, Lidocaine patch, scheduled Gabapentin, and Chlorzoxazone Chronic Protein Calorie Malnutrition - severe -encourage PO intake -event marketing manager consulted -prealbumin low, 16.5 GERD -continue home Protonix Depression -continue home Wellbutrin Insomnia -continue home Trazodone DVT ppx: SCDs and home Plavix FEN/GI: HH Code Status: Full Dispo: PCU/tele (2) Hyponatremia: (3) Hypokalemia: (4) Anemia: (5) Afib: (6) Bilateral pleural effusion: (7) Arthritis of multiple sites: (8) Hypoalbuminemia due to protein-calorie malnutrition: (9) Pulmonary hypertension: (10) History of hip surgery: (11) CAD (coronary artery disease): (12) PAD (peripheral artery disease): (13) Chronic osteomyelitis of hip: (14) Hyperlipidemia: (15) Chronic ulcer of great toe: Admission and Anticipated Discharge Date Admission Date: March 09, 2022 Supervising Physician Co-Signing Physician Notes Patient seen and examined independently of PGY-2 Dr. Fan. Agree with history, exam findings, assessment and plan of care as outlined. In brief, Mr. Saunders is a 71 year old male with hx of HFpEF, chronic bilateral pleural effusions, pulmonary HTN, chronic respiratory failure, CAD, pAF, PAD (hx of LLE angioplasty with stent), cirrhosis with esophageal varices, chronic left hip osteomyelitis admitted with acute on chronic respiratory failure. Reports that his breathing at rest is improved; however, with walking in the [place] he will become very winded. Has never done pulmonary rehab in the past, but has seen [facility] pulmonology in the past. After seeing the patient, received a message regarding patient having dizziness while walking with the nurse. Does have frequent falls at home. Patient told the nurse that he gets dizzy at home and will "go out all of a sudden" after taking his medications. VS and nursing notes reviewed. Non-toxic appearing. Heart is irregular. Trace edema of the bilateral lower extremities. Breathing is unlabored at rest, soft, end-expiratory wheezes in all lung hays. Fair air movement. Left lower extremity with soft, fluctuant area of the proximal anterior gómez. No ecchymosis. Bilateral great toes with dry gangrene. Labs and imaging reviewed 1.Acute on chronic hypoxemic respiratory failure. Required 5L NC on presentation on to the emergency room, now on room air. CTA with scattered right-sided opacities concerning for atypical pneumonia. COVID-19 negative. Wean off Solumedrol--received two doses today, will switch to prednisone BID tomorrow, then prednisone daily. Continue with azithromycin to cover for atypicals--tomorrow will be day 3 of azithro 500mg. Flutter valve, Mucinex. 2. Positive blood culture. 1/2 bottles with gram positive in clusters--likely coag neg staph based on [employer]. nasal MRSA is negative. Stop antibiotics for now given that this is likely contaminant. Repeat blood cultures pending. 4. left gómez lump. Likely hematoma that is confirmed by ultrasound. 5. Dizziness. Unclear if this is medication related vs related to underlying pulmonary etiology. Avoid sedating medications and medications with anticholinergic side effects. 6.Electrolyte derangement. Na 128, K 2.9, Cl 90. Secondary to diuretic use and SIADH due to concomitant pneumonia. IVFs. Holding home Lasix and metolazone. 7. Frequent falls. PT/OT requested. 7.CAD/PAD. Continue home Plavix and atorvastatin. 8.HFpEF. Not in exacerbation. EF 65-70 in October 2021. Euvolemic. 9.pAF. Rate controlled. Continue home metoprolol. 10.Chronic left hip osteomyelitis. Continue Bactrim. 11.Chronic pain, OA, muscle spasms. Continue home PRN Percocet, lidocaine patch ; scheduled gabapentin and chlorzoxazone. Dispo: pending PT/OT and clinical improvement. Subjective Patient seen at bedside this morning. No overnight events. No acute complaints. Breathing well, best he's felt in over a month. Would like to work with PT today. Eating all his meals. Denies chest pain, SOB, BARRETO, N/V, abdominal pain, dysuria. Review of Systems Review of Systems: All systems reviewed & are unremarkable except as noted in HPI & below Physical Exam Physical Exam: General: A&Ox3. in no acute distress. Cooperative. Thin. HEENT: Atraumatic, normocephalic. Pulm: CTAB. No rales or rhonchi appreciated. No increased work of breathing. No accessory muscle use. Cardiac: RRR, no murmurs. No LE pretibial edema. Abdominal: soft, mild LLQ abd tenderness, nondistended, no guarding, +BS Skin: warm, dry. 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 Nonerythematous soft tissue mass on left gómez. Results & Data Results & Data ([facility]) Vital Signs (Past 12 Hours) Vital Signs Temp Pulse Pulse Resp BP Pulse Ox O2 Del Method 03/11/22 07:01 36.6 C 66 18 132/73 97 Room Air 03/11/22 03:33 36.5 C 57 L 18 111/68 99 Room Air 03/10/22 23:56 36.7 C 77 18 112/68 95 Room Air 03/10/22 22:16 72 03/10/22 20:15 Room Air Laboratory Results 03/11/22 03/11/22 03/11/22 Range/Units 11:30 07:18 07:03 WBC (4.8-10.8) K/ul RBC (4.63-6.08) M/uL Hgb (14.0-18.0) g/dl Hct (40.1-51.0) % MCV (80.0-100.0) fL MCH (25.0-34.0) pg MCHC (32.0-36.0) g/dL RDW Std Deviation (36.4-46.3) fL RDW Coeff of [place] (11.5-14.5) % Plt Count (130-400) K/uL MPV (9.4-12.4) fL Immature Gran % (Auto) % Neut % (Auto) % Lymph % (Auto) % [place] % (Auto) % Eos % (Auto) % Baso % (Auto) % Neut # (Auto) (1.4-6.5) K/uL Lymph # (Auto) (1.2-3.4) K/uL [place] # (Auto) (0.24-0.82) K/uL Eos # (Auto) (0-0.50) K/uL Baso # (Auto) (0-0.2) K/uL Immature Gran # (Auto) (0.00-0.02) K/uL Sodium 133 L (136-145) mmol/L Potassium 3.7 (3.5-5.1) mmol/L Chloride 100 (98-107) mmol/L Carbon Dioxide 28 (21-32) mmol/L Anion Gap 5 (3-11) BUN 26 H (6-23) mg/dl Creatinine 0.69 (0.6-1.4) mg/dl Est Cr Clr Drug Dosing 90.4 ml/min Est GFR ( Amer) 110.7 ml/min Est GFR (Non-Af Amer) 95.5 ml/min BUN/Creatinine Ratio 37.7 H (10-20) Glucose 108 H (70-99(Fasting)) mg/dl POC Glucose 106 H 121 H (70-99) mg/dl Calcium 8.3 L (8.5-10.1) mg/dl Total Bilirubin 0.2 (0.2-1.0) mg/dl AST 25 (13-39) U/L ALT 28 (7-52) U/L Alkaline Phosphatase 120 H (34-104) U/L Total Protein 6.9 (6.0-8.3) gm/dl Albumin 3.0 L (3.4-5.0) gm/dl Globulin 3.9 (2.5-4.0) gm/dl Albumin/Globulin Ratio 0.8 L (0.9-2) Urine Color Urine Appearance (Clear) Urine pH (4.5-7.5) Ur Specific [place] (1.000-1.030) Urine Protein (Negative) Urine Glucose (UA) (Negative) Urine Ketones (Negative) Urine Blood (Negative) Urine Nitrite (Negative) Urine Bilirubin (Negative) Urine Urobilinogen (Negative) Ur Leukocyte Esterase (Negative) 03/11/22 03/10/22 03/10/22 Range/Units 07:03 20:42 16:13 WBC 8.46 (4.8-10.8) K/ul RBC 3.66 L (4.63-6.08) M/uL Hgb 8.7 L (14.0-18.0) g/dl Hct 28.8 L (40.1-51.0) % MCV 78.7 L (80.0-100.0) fL MCH 23.8 L (25.0-34.0) pg MCHC 30.2 L (32.0-36.0) g/dL RDW Std Deviation 54.9 H (36.4-46.3) fL RDW Coeff of Timbo 19.2 H (11.5-14.5) % Plt Count 411 H (130-400) K/uL MPV 8.4 L (9.4-12.4) fL Immature Gran % (Auto) 0.5 % Neut % (Auto) 89.5 % Lymph % (Auto) 6.7 % [place] % (Auto) 3.2 % Eos % (Auto) 0.0 % Baso % (Auto) 0.1 % Neut # (Auto) 7.57 H (1.4-6.5) K/uL Lymph # (Auto) 0.57 L (1.2-3.4) K/uL [place] # (Auto) 0.27 (0.24-0.82) K/uL Eos # (Auto) 0.00 (0-0.50) K/uL Baso # (Auto) 0.01 (0-0.2) K/uL Immature Gran # (Auto) 0.04 H (0.00-0.02) K/uL Sodium (136-145) mmol/L Potassium (3.5-5.1) mmol/L Chloride (98-107) mmol/L Carbon Dioxide (21-32) mmol/L Anion Gap (3-11) BUN (6-23) mg/dl Creatinine (0.6-1.4) mg/dl Est Cr Clr Drug Dosing ml/min Est GFR ( Amer) ml/min Est GFR (Non-Af Amer) ml/min BUN/Creatinine Ratio (10-20) Glucose (70-99(Fasting)) mg/dl POC Glucose 189 H (70-99) mg/dl Calcium (8.5-10.1) mg/dl Total Bilirubin (0.2-1.0) mg/dl AST (13-39) U/L ALT (7-52) U/L Alkaline Phosphatase (34-104) U/L Total Protein (6.0-8.3) gm/dl Albumin (3.4-5.0) gm/dl Globulin (2.5-4.0) gm/dl Albumin/Globulin Ratio (0.9-2) Urine Color Yellow Urine Appearance Clear (Clear) Urine pH 6.0 (4.5-7.5) Ur Specific [place] 1.023 (1.000-1.030) Urine Protein Negative (Negative) Urine Glucose (UA) Negative (Negative) Urine Ketones Negative (Negative) Urine Blood Negative (Negative) Urine Nitrite Negative (Negative) Urine Bilirubin Negative (Negative) Urine Urobilinogen Negative (Negative) Ur Leukocyte Esterase Negative (Negative) 03/10/22 Range/Units 16:12 WBC (4.8-10.8) K/ul RBC (4.63-6.08) M/uL Hgb (14.0-18.0) g/dl Hct (40.1-51.0) % MCV (80.0-100.0) fL MCH (25.0-34.0) pg MCHC (32.0-36.0) g/dL RDW Std Deviation (36.4-46.3) fL RDW Coeff of Timbo (11.5-14.5) % Plt Count (130-400) K/uL MPV (9.4-12.4) fL Immature Gran % (Auto) % Neut % (Auto) % Lymph % (Auto) % [place] % (Auto) % Eos % (Auto) % Baso % (Auto) % Neut # (Auto) (1.4-6.5) K/uL Lymph # (Auto) (1.2-3.4) K/uL [place] # (Auto) (0.24-0.82) K/uL Eos # (Auto) (0-0.50) K/uL Baso # (Auto) (0-0.2) K/uL Immature Gran # (Auto) (0.00-0.02) K/uL Sodium (136-145) mmol/L Potassium (3.5-5.1) mmol/L Chloride (98-107) mmol/L Carbon Dioxide (21-32) mmol/L Anion Gap (3-11) BUN (6-23) mg/dl Creatinine (0.6-1.4) mg/dl Est Cr Clr Drug Dosing ml/min Est GFR ( Amer) ml/min Est GFR (Non-Af Amer) ml/min BUN/Creatinine Ratio (10-20) Glucose (70-99(Fasting)) mg/dl POC Glucose 150 H (70-99) mg/dl Calcium (8.5-10.1) mg/dl Total Bilirubin (0.2-1.0) mg/dl AST (13-39) U/L ALT (7-52) U/L Alkaline Phosphatase (34-104) U/L Total Protein (6.0-8.3) gm/dl Albumin (3.4-5.0) gm/dl Globulin (2.5-4.0) gm/dl Albumin/Globulin Ratio (0.9-2) Urine Color Urine Appearance (Clear) Urine pH (4.5-7.5) Ur Specific [place] (1.000-1.030) Urine Protein (Negative) Urine Glucose (UA) (Negative) Urine Ketones (Negative) Urine Blood (Negative) Urine Nitrite (Negative) Urine Bilirubin (Negative) Urine Urobilinogen (Negative) Ur Leukocyte Esterase (Negative) Resident Activity Tracking Resident Involvement: Resident Care Provided Care Provided: Adult Hospital Medicine (1) Anemia Anemia type: unspecified type Qualified Code(s): D64.9 - Anemia, unspecified
[2022-03-11 08:03] LABS: Albumin Globulin Ratio 0.8 (0.9-2); BUN Creatinine Ratio 37.7 (10-20); Bilirubin,Total 0.2 mg/dl (0.2-1.0); Calcium 8.3 mg/dl (8.5-10.1); Creatinine Clr Calc Pharmacy 90.4 ml/min; Est GFR (African American) 110.7 ml/min; Est GFR (Non-African American) 95.5 ml/min; Globulin 3.9 gm/dl (2.5-4.0); Potassium 3.7 mmol/L (3.5-5.1); Total Protein 6.9 gm/dl (6.0-8.3)
[2022-03-11] MEDS: CLOPIDOGREL BISULFATE 75 MG TAB PO SCH (08:03)
[2022-03-11] MEDS: PANTOprazole 40 MG TAB PO SCH (08:03)
[2022-03-11] MEDS: buPROPion HCl 100 MG TABLET PO SCH ×2 (08:03→20:26)
[2022-03-11] MEDS: FERROUS SULFATE 325 MG TAB PO SCH (08:03)
[2022-03-11] MEDS: ATORVASTATIN 40 MG TAB PO SCH (08:03)
[2022-03-11] MEDS: guaiFENesin 600 MG TABCR PO SCH ×2 (08:04→20:28)
[2022-03-11] MEDS: METOPROLOL TARTRATE 25 MG TAB PO SCH ×2 (08:04→20:28)
[2022-03-11] MEDS: GABAPENTIN 400 MG CAP PO SCH ×3 (08:04→20:28)
[2022-03-11] MEDS: FLUTICASONE/VILANTEROL 100/25MCG 14 PUFFS/INHALER INH SCH ×2 (08:04→20:27)
[2022-03-11] MEDS: SULFAMETHOXAZOLE/TRIMETHOPRIM DS 800/160MG TAB PO SCH ×2 (08:04→20:29)
[2022-03-11] MEDS: BRIMONIDINE TARTRATE 0.2% 5ML OP SCH ×2 (08:05→20:23)
[2022-03-11] MEDS: prednisoLONE acetate 1% OP SUSP 5 ML BTL OP SCH ×2 (08:05→13:19)
[2022-03-11] MEDS: DORZOLAMIDE/TIMOLOL 22.3/6.8MG/ML 10 ML BTL OP SCH ×3 (08:05→20:23)
[2022-03-11] MEDS: oxyCODONE/ACETAMINOPHEN 5mg/325mg TAB PO PRN ×3 (08:06→23:49)
--- NOTE | 2022-03-11 09:10 | Ultrasound Report ---
ULTRASOUND LEFT LOWER EXTREMITY NONVASCULAR CLINICAL HISTORY: Possible hematoma. Bruising. COMPARISON STUDY: Left lower extremity arterial ultrasound dated 03/09/2022. FINDINGS: Real-time grayscale and color flow sonography is performed at the site of interest in the l ateral aspect of the olvera. There is a complex hypoechoic nonvascular fluid collection at the site whi ch measures 7.2 x 1.5 x 4.5 cm. The appearance is typical for a hematoma. IMPRESSION: Complex nonvascular fluid collection at the site of interest as detailed above. The appea samantha is typical for hematoma. Clinical correlation will be required and clinical follow-up to resolu tion is recommended. Electronically signed by: Shade Guerin M.D. 03/11/2022 9:06 AM
[2022-03-11] MEDS: POLYETHYLENE (MIRALAX) 17 GM PACK PO PRN (14:10)
[2022-03-11] MEDS: LATANOPROST 0.005% OP SOLN 2.5 ML BTL OP SCH (20:24)
[2022-03-11] MEDS: CHLORZOXAZONE 500 MG TAB PO SCH (20:26)
[2022-03-11] MEDS: DOCUSATE SODIUM 100 MG CAP PO SCH (20:27)
[2022-03-11] MEDS: traZODone HCL 50 MG TAB PO SCH (20:29)
[2022-03-12 07:03] LABS: Basophils # (auto) 0.01 K/uL (0-0.2); Basophils % (auto) 0.1 %; Eosinophils # (auto) 0.01 K/uL (0-0.50); Eosinophils % (auto) 0.1 %; Hematocrit (blood only) 31.3 % (40.1-51.0); Hemoglobin 9.3 g/dl (14.0-18.0); Immature Granulocytes # (auto) 0.04 K/uL (0.00-0.02); Immature Granulocytes % (auto) 0.5 %; Lymphocytes # (auto) 1.48 K/uL (1.2-3.4); Mean Corpuscular Hemoglobin 24.2 pg (25.0-34.0); Mean Corpuscular Hgb Conc 29.7 g/dL (32.0-36.0); Mean Corpuscular Volume 81.5 fL (80.0-100.0); Mean Platelet Volume 8.3 fL (9.4-12.4); Monocytes % (auto) 9.5 %; Neutrophils # (auto) 5.16 K/uL (1.4-6.5); Neutrophils % (auto) 69.8 %; Platelet Count 389 K/uL (130-400); RDW Coefficient of Variation 19.3 % (11.5-14.5); RDW Standard Deviation 57.2 fL (36.4-46.3); Red Blood Count 3.84 M/uL (4.63-6.08)
[2022-03-12 07:35] LABS: Albumin Globulin Ratio 0.8 (0.9-2); Albumin Level 2.9 gm/dl (3.4-5.0); BUN Creatinine Ratio 36.5 (10-20); Bilirubin,Total 0.2 mg/dl (0.2-1.0); Calcium 8.4 mg/dl (8.5-10.1); Creatinine Clr Calc Pharmacy 73.4 ml/min; Est GFR (African American) 101.6 ml/min; Est GFR (Non-African American) 87.7 ml/min; Globulin 3.7 gm/dl (2.5-4.0); Potassium 3.8 mmol/L (3.5-5.1); Total Protein 6.6 gm/dl (6.0-8.3)
[2022-03-12] MEDS: DORZOLAMIDE/TIMOLOL 22.3/6.8MG/ML 10 ML BTL OP SCH ×3 (08:43→20:07)
[2022-03-12] MEDS: oxyCODONE/ACETAMINOPHEN 5mg/325mg TAB PO PRN ×2 (08:44→16:26)
[2022-03-12] MEDS: DOCUSATE SODIUM 100 MG CAP PO SCH ×2 (08:45→20:14)
[2022-03-12] MEDS: buPROPion HCl 100 MG TABLET PO SCH ×2 (08:45→20:09)
[2022-03-12] MEDS: GABAPENTIN 400 MG CAP PO SCH ×3 (08:56→20:11)
[2022-03-12] MEDS: guaiFENesin 600 MG TABCR PO SCH ×2 (08:57→20:10)
[2022-03-12] MEDS: METOPROLOL TARTRATE 25 MG TAB PO SCH ×2 (08:58→20:11)
[2022-03-12] MEDS: CLOPIDOGREL BISULFATE 75 MG TAB PO SCH (08:59)
[2022-03-12] MEDS: PANTOprazole 40 MG TAB PO SCH (08:59)
[2022-03-12] MEDS: SULFAMETHOXAZOLE/TRIMETHOPRIM DS 800/160MG TAB PO SCH ×2 (08:59→20:08)
[2022-03-12] MEDS ORDERED: AZITHROMYCIN 250 MG TAB PO SCH (09:00)
[2022-03-12] MEDS ORDERED: AZITHROMYCIN 250 MG TAB PO ONE (09:00)
[2022-03-12] MEDS: ATORVASTATIN 40 MG TAB PO SCH (09:00)
[2022-03-12] MEDS: predniSONE 20 MG TAB PO SCH ×2 (09:00→20:12)
[2022-03-12] MEDS: FERROUS SULFATE 325 MG TAB PO SCH (09:01)
[2022-03-12] MEDS: FLUTICASONE/VILANTEROL 100/25MCG 14 PUFFS/INHALER INH SCH ×2 (09:03→20:12)
[2022-03-12] MEDS: BRIMONIDINE TARTRATE 0.2% 5ML OP SCH ×2 (09:03→20:08)
--- NOTE | 2022-03-12 09:31 | Hospitalist Progress Note ---
Date of Service March 12, 2022 Assessment & Plan (1) Acute on chronic respiratory failure: Plan: Brennan Saunders is a 71yo male with complex PMHx significant for chronic HFpEF (last EF 65-70% in 10/2021), chronic bilateral pleural effusions (with several thoracenteses done here, with h/o hemothorax and pneumothorax), pulmonary hypertension, chronic respiratory failure (on intermittent home O2), CAD, paroxysmal a-fib (on BB, no AC), PAD (s/p LLE angioplasty with stenting, on Plavix), iron deficiency anemia, h/o esophageal varices and ?cirrhosis, protein calorie malnutrition, chronic bilateral 1st toe ulcers, chronic left hip osteomyelitis, HLD and depression, who presented to [facility] ED on 03/09 due to dyspnea. Acute on Chronic Hypoxemic Respiratory Failure Worsening dyspnea/cough following upper respiratory infection ~1 week ago. Hypoxic on presentation requiring 5L/min NC. CTA chest with scattered right- sided opacities suspicious for atypical pneumonia. There is a small right pleural effusion but it appears much smaller than previous CTs - do not suspect this is significantly contributing to current condition. COVID-19 negative. - Initial VBG showing respiratory alkalosis (pH 7.56, pCO2 27), BiPaP initiated --> VBG improved, bipap d/c'd, currently on RA - CXR: R pleural effusion with associated right basilar consolidation, L lung clear noting basilar scarring/atelectasis - CTA chest: no PE, some ground glass and nodular densities, small R pleural effusion decreased from prior - received SoluMedrol 125mg IV x1 in ED; d/c'd (03/11) 40mg IV Q8H; begin taper with prednisone po 40mg bid (03/12), then prednisone po 40mg qd beginning 03/13 until discharge - scheduled Breo Ellipta BID and albuterol BID prn - received CTX 1g IV and Azithromycin 500mg IV in ED - cont. Azithromycin monotherapy as there is no consolidation on CTA chest, final dose on 03/12 - pulmonary toilet: flutter valve, incentive spirometer, Mucinex 1200mg PO BID - Cont. PT, recommend increased home PT on discharge; [facility] Electrolyte Abnormalities, improving On admission Na 128, K 2.9, Cl 90. Suspect 2/2 to diuretics in addition to chronic poor PO intake and malnutrition. SIADH in context of pneumonia also may be contributing - replenished K, repeat wnl - Na 134 (03/12), stable - d/c'd LR @80cc/hr x1L - hold home Lasix and Metolazone - 2L fluid restriction - trend in AM Dizziness -complains h/o dizziness/brain fog upon standing at home -orthostatics pending -f/u outpatient Mass on Left Gómez -suspect soft tissue based, h/o of falls -US soft tissue left LE: likely hematoma Chronic bilateral 1st toe ulcers, chronic -follows with vascular outpatient -wound care consulted -US arterial duplex LE left: extensive atherosclerotic calcification, marked stenosis of distal superficial femoral artery Contaminant Bacteremia -blood cx grew gram positive cocci clusters in 1 tube; PCR neg for MRSA, staph aureus, epidermis, lugdunensis; MRSA nasal screen neg -repeat blood cx neg -vancomycin d/c'd (03/11) CAD/PAD -continue home Atorvastatin and Plavix Chronic HFpEF -Last EF 65-70% in 10/2021. Euvolemic on exam. Hold home Lasix/Metolazone as stated above Iron Deficiency Anemia -Hgb 9.5 admission, microcytic/hypochromic, at chronic baseline. -Repeat Hgb 9.3, stable, cont. to monitor -Continue daily ferrous sulfate Paroxysmal A-fib -continue home Metoprolol Chronic left hip osteomyelitis -continue Bactrim ppx Chronic pain/OA/muscle spasms -on chronic pain medications - continue home PRN Percocet, Lidocaine patch, scheduled Gabapentin, and Chlorzoxazone Chronic Protein Calorie Malnutrition - severe -encourage PO intake -insole beveler consulted -prealbumin low, 16.5 GERD -continue home Protonix Depression -continue home Wellbutrin Insomnia -continue home Trazodone DVT ppx: SCDs and home Plavix FEN/GI: HH Code Status: Full Dispo: med surg (2) Hyponatremia: (3) Hypokalemia: (4) Anemia: (5) Afib: (6) Bilateral pleural effusion: (7) Arthritis of multiple sites: (8) Hypoalbuminemia due to protein-calorie malnutrition: (9) Pulmonary hypertension: (10) History of hip surgery: (11) CAD (coronary artery disease): (12) PAD (peripheral artery disease): (13) Chronic osteomyelitis of hip: (14) Hyperlipidemia: (15) Chronic ulcer of great toe: Admission and Anticipated Discharge Date Admission Date: March 09, 2022 Supervising Physician Co-Signing Physician Notes Attending attestation Pt seen and examined in concert with Dr. Fan. In agreement with the documented findings as noted in the resident documentation with any exceptions or additions as noted here Continued improvement in shortness of breath approaching baseline prior to illness. No further episodes of dizziness while walking reported. On examination, S1/S2 nl RRR no MCG. Decreased BS but CTAB diffusely. Abd NT/ND BS+ve. Trace edema of the b/l LE with dry gangrene bilaterally stable chronically Acute on chronic hypoxic respiratory failure - returned to baseline. Completed course of azithromycin, transition to daily PO prednisone and monitor. Else see resident documentation as noted. Subjective Patient seen at bedside this morning. No ovennight events. No acute complaints. Breathing well, best he's felt in over a month. Continues working with PT. Eating all his meals. Says he still feels weak when he walks. Also mentions history of feeling dizzy upon standing up. Denies chest pain, SOB, BARRETO, N/V, abdominal pain, dysuria. Review of Systems Review of Systems: All systems reviewed & are unremarkable except as noted in HPI & below Physical Exam Physical Exam: General: A&Ox3. in no acute distress. Cooperative. Thin. HEENT: Atraumatic, normocephalic. Pulm: CTAB. No rales or rhonchi appreciated. No increased work of breathing. No accessory muscle use. Cardiac: RRR, no murmurs. No LE pretibial edema. Abdominal: soft, mild LLQ abd tenderness, nondistended, no guarding, +BS Skin: warm, dry. 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 Nonerythematous soft tissue mass on left gómez. Results & Data Results & Data ([facility]) Vital Signs (Past 12 Hours) Vital Signs Temp Pulse Resp BP Pulse Ox O2 Del Method 03/12/22 08:24 36.7 C 71 18 140/89 96 Room Air 03/11/22 23:48 36.6 C 65 18 118/73 96 Room Air 03/11/22 23:02 36.6 C 70 18 136/78 98 Room Air Laboratory Results 03/12/22 03/12/22 Range/Units 06:42 06:42 WBC 7.40 (4.8-10.8) K/ul RBC 3.84 L (4.63-6.08) M/uL Hgb 9.3 L (14.0-18.0) g/dl Hct 31.3 L (40.1-51.0) % MCV 81.5 (80.0-100.0) fL MCH 24.2 L (25.0-34.0) pg MCHC 29.7 L (32.0-36.0) g/dL RDW Std Deviation 57.2 H (36.4-46.3) fL RDW Coeff of Timbo 19.3 H (11.5-14.5) % Plt Count 389 (130-400) K/uL MPV 8.3 L (9.4-12.4) fL Immature Gran % (Auto) 0.5 % Neut % (Auto) 69.8 % Lymph % (Auto) 20.0 % [place] % (Auto) 9.5 % Eos % (Auto) 0.1 % Baso % (Auto) 0.1 % Neut # (Auto) 5.16 (1.4-6.5) K/uL Lymph # (Auto) 1.48 (1.2-3.4) K/uL [place] # (Auto) 0.70 (0.24-0.82) K/uL Eos # (Auto) 0.01 (0-0.50) K/uL Baso # (Auto) 0.01 (0-0.2) K/uL Immature Gran # (Auto) 0.04 H (0.00-0.02) K/uL Sodium 134 L (136-145) mmol/L Potassium 3.8 (3.5-5.1) mmol/L Chloride 100 (98-107) mmol/L Carbon Dioxide 29 (21-32) mmol/L Anion Gap 5 (3-11) BUN 31 H (6-23) mg/dl Creatinine 0.85 (0.6-1.4) mg/dl Est Cr Clr Drug Dosing 73.4 ml/min Est GFR ( Amer) 101.6 ml/min Est GFR (Non-Af Amer) 87.7 ml/min BUN/Creatinine Ratio 36.5 H (10-20) Glucose 86 (70-99(Fasting)) mg/dl Calcium 8.4 L (8.5-10.1) mg/dl Total Bilirubin 0.2 (0.2-1.0) mg/dl AST 28 (13-39) U/L ALT 38 (7-52) U/L Alkaline Phosphatase 112 H (34-104) U/L Total Protein 6.6 (6.0-8.3) gm/dl Albumin 2.9 L (3.4-5.0) gm/dl Globulin 3.7 (2.5-4.0) gm/dl Albumin/Globulin Ratio 0.8 L (0.9-2) Resident Activity Tracking Resident Involvement: Resident Care Provided Care Provided: Adult Hospital Medicine (1) Anemia Anemia type: unspecified type Qualified Code(s): D64.9 - Anemia, unspecified
[2022-03-12] MEDS: ACETAMINOPHEN 325 MG TAB PO PRN (11:54)
[2022-03-12] MEDS: POLYETHYLENE (MIRALAX) 17 GM PACK PO PRN (20:06)
[2022-03-12] MEDS: LATANOPROST 0.005% OP SOLN 2.5 ML BTL OP SCH (20:07)
[2022-03-12] MEDS: CHLORZOXAZONE 500 MG TAB PO SCH (20:09)
[2022-03-12] MEDS ORDERED: POLYETHYLENE (MIRALAX) 17 GM PACK PO ONE (21:27)
[2022-03-13] MEDS: traZODone HCL 50 MG TAB PO SCH (00:15)
[2022-03-13 07:01] LABS: Basophils # (auto) 0.01 K/uL (0-0.2); Basophils % (auto) 0.1 %; Hematocrit (blood only) 30.4 % (40.1-51.0); Hemoglobin 9.1 g/dl (14.0-18.0); Immature Granulocytes # (auto) 0.06 K/uL (0.00-0.02); Immature Granulocytes % (auto) 0.7 %; Lymphocytes # (auto) 0.93 K/uL (1.2-3.4); Lymphocytes % (auto) 11.5 %; Mean Corpuscular Hemoglobin 23.9 pg (25.0-34.0); Mean Corpuscular Hgb Conc 29.9 g/dL (32.0-36.0); Mean Platelet Volume 8.4 fL (9.4-12.4); Monocytes # (auto) 0.32 K/uL (0.24-0.82); Neutrophils # (auto) 6.74 K/uL (1.4-6.5); Neutrophils % (auto) 83.7 %; Nucleated RBC # (auto) 0.02 K/uL (0-0); Nucleated RBC % (auto) 0.2 %; Platelet Count 415 K/uL (130-400); RDW Coefficient of Variation 19.6 % (11.5-14.5); RDW Standard Deviation 56.7 fL (36.4-46.3); White Blood Count 8.06 K/ul (4.8-10.8)
[2022-03-13 07:25] LABS: Albumin Globulin Ratio 0.8 (0.9-2); Albumin Level 2.9 gm/dl (3.4-5.0); BUN Creatinine Ratio 43.7 (10-20); Bilirubin,Total 0.2 mg/dl (0.2-1.0); Calcium 8.3 mg/dl (8.5-10.1); Creatinine Clr Calc Pharmacy 87.9 ml/min; Est GFR (African American) 109.4 ml/min; Est GFR (Non-African American) 94.4 ml/min; Globulin 3.6 gm/dl (2.5-4.0); Potassium 4.4 mmol/L (3.5-5.1); Total Protein 6.5 gm/dl (6.0-8.3)
[2022-03-13] MEDS ORDERED: predniSONE 20 MG TAB PO SCH (09:00)
[2022-03-13] MEDS: oxyCODONE/ACETAMINOPHEN 5mg/325mg TAB PO PRN (09:02)
[2022-03-13] MEDS: BRIMONIDINE TARTRATE 0.2% 5ML OP SCH (09:02)
[2022-03-13] MEDS: guaiFENesin 600 MG TABCR PO SCH (09:03)
[2022-03-13] MEDS: ATORVASTATIN 40 MG TAB PO SCH (09:03)
[2022-03-13] MEDS: CLOPIDOGREL BISULFATE 75 MG TAB PO SCH (09:04)
[2022-03-13] MEDS: SULFAMETHOXAZOLE/TRIMETHOPRIM DS 800/160MG TAB PO SCH (09:04)
[2022-03-13] MEDS: FLUTICASONE/VILANTEROL 100/25MCG 14 PUFFS/INHALER INH SCH (09:06)
[2022-03-13] MEDS: METOPROLOL TARTRATE 25 MG TAB PO SCH (09:06)
[2022-03-13] MEDS: DORZOLAMIDE/TIMOLOL 22.3/6.8MG/ML 10 ML BTL OP SCH ×2 (09:06→14:05)
[2022-03-13] MEDS: FERROUS SULFATE 325 MG TAB PO SCH (09:07)
[2022-03-13] MEDS: PANTOprazole 40 MG TAB PO SCH (09:08)
[2022-03-13] MEDS: GABAPENTIN 400 MG CAP PO SCH ×2 (09:08→14:00)
[2022-03-13] MEDS: buPROPion HCl 100 MG TABLET PO SCH (09:09)
[2022-03-13] MEDS: DOCUSATE SODIUM 100 MG CAP PO SCH (09:11)
--- NOTE | 2022-03-13 10:10 | Discharge Summary ---
Date of Service March 13, 2022 Admission HPI Per Admitting Provider Brennan Saunders is a 71yo male with complex PMHx significant for chronic HFpEF (last EF 65-70% in 10/2021), chronic bilateral pleural effusions (with several thoracenteses done here, with h/o hemothorax and pneumothorax), pulmonary hypertension, chronic respiratory failure (on intermittent home O2), CAD, paroxysmal a-fib (on BB, no AC), PAD (s/p LLE angioplasty with stenting, on Plavix), iron deficiency anemia, h/o esophageal varices and ?cirrhosis, protein calorie malnutrition, chronic bilateral 1st toe ulcers, chronic left hip osteomyelitis, HLD and depression, who presented to [facility] ED on 03/09 due to dyspnea. Patient reports progressive dyspnea x3-4 days. He was complaining of chills and increased cough ~1 week ago. Cough has persisted. He has home O2 but does not usually use it - however he asked his for it yesterday and then she suggested that he come into the ED for evaluation. Patient denies fever/chills, chest pain, palpitations, N/V, abdominal pain, diarrhea or rash. He has been taking all medications and inhalers as prescribed. He has a 60 pack year smoking history but quit ~20 years ago. No alcohol use or drug use. Proficient in ADLs and most iADLs. Per , he sometimes gets agitated and confused in the evenings. In the ED the patient was hypoxic to 88% on room air and improved to high 90s on 3L/min NC. Tachypneic in mid 20s. VBG showing respiratory alkalosis pH 7.56/pCO2 27. Hgb 9.5 (variable baseline 8-11, microcytic/hypochromic). Na 128, K 2.9, Cl 90. Cr WNL. Chest CTA showing small right pleural effusion and scattered opacities throughout right lung suspicious for atypical pneumonia. COVID-19 negative. Patient was given Methylprednisolone 125mg IV x1 and Albuterol nebs x1. Was also given Oxycodone 5mg PO x1, KCl 40mEq PO, and was started on Azithromycin and Ceftriaxone. Blood cultures drawn before initiation of antibiotics. Admission Exam Per Admitting Provider General: A&Ox3. Moderate respiratory distress. Cooperative. Thin. HEENT: Atraumatic, normocephalic. NC in place. Pulm: Decreased aeration bilaterally with bilateral wheezes and right-sided crackles. Moderate increased work of breathing. Cardiac: RRR, -mrg. Radial pulses intact and symmetrical. No LE edema. Abdominal: soft, non-tender, non-distended, BS x 4 Skin: warm, dry, no rash Principal Diagnosis COPD exacerbation Discharge Exam General: No acute distress. Cooperative. Thin. HEENT: Atraumatic, normocephalic. Pulm: Slightly decreased breath sounds but largely clear. No rales or rhonchi appreciated. No increased work of breathing. No accessory muscle use. Cardiac: RRR, no murmurs. No LE pretibial edema. Abdominal: soft, nontender, nondistended, normal BS Skin: warm, dry. 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 Nonerythematous soft tissue mass on left gómez. Discharge Data Allergies Allergy/AdvReac Type Severity Reaction Status Date / Time No Known Allergies Allergy Unknown Verified 03/08/22 22:42 Consultations 03/09/22 00:26 ED Decision to Admit Stat Ordered Studies 03/08/22 22:13 CT angio chest PE protocol Urgent 03/09/22 13:08 US arterial duplex LE LT Routine 03/10/22 18:19 US soft tissue ext ltd Routine Hospital Course (1) Acute on chronic respiratory failure: Brennan Saunders is a 71yo male with complex PMHx significant for chronic HFpEF (last EF 65-70% in 10/2021), chronic bilateral pleural effusions (with several thoracenteses done here, with h/o hemothorax and pneumothorax), pulmonary hypertension, chronic respiratory failure (on intermittent home O2), CAD, paroxysmal a-fib (on BB, no AC), PAD (s/p LLE angioplasty with stenting, on Plavix), iron deficiency anemia, h/o esophageal varices and ?cirrhosis, protein calorie malnutrition, chronic bilateral 1st toe ulcers, chronic left hip osteomyelitis, HLD and depression, who presented to [facility] ED on 03/09 due to dyspnea. Acute on Chronic Hypoxemic Respiratory Failure Worsening dyspnea/cough following upper respiratory infection ~1 week ago. Hypoxic on presentation requiring 5L/min NC. CTA chest with scattered right- sided opacities suspicious for atypical pneumonia. There is a small right pleural effusion but it appears much smaller than previous CTs - do not suspect this significantly contributed to current condition. COVID-19 negative. - Initial VBG showing respiratory alkalosis (pH 7.56, pCO2 27), BiPaP initiated --> VBG improved, bipap d/c'd, currently on RA - CXR: R pleural effusion with associated right basilar consolidation, L lung clear noting basilar scarring/atelectasis - CTA chest: no PE, some ground glass and nodular densities, small R pleural effusion decreased from prior - received steroid taper from Solumedrol to prednisone, completed on discharge with 40 mg prednisone - received scheduled Breo Ellipta BID and albuterol BID prn - received CTX 1g IV and Azithromycin 500mg IV in ED - cont. Azithromycin monotherapy as there is no consolidation on CTA chest, final dose completed on 03/12 - Received pulmonary toilet: flutter valve, incentive spirometer, Mucinex 1200mg PO BID - Saturating well on RA and stable respiratory status at time of discharge Debility - Of note, pt [facility]. He and family would like rehab but PT/OT evaluation indicate he would be better served with home services - Message sent to case management for further inquiry after discharge and attempt to increase pt's home services Electrolyte Abnormalities, resolved On admission Na 128, K 2.9, Cl 90. Suspect 2/2 to diuretics in addition to chronic poor PO intake and malnutrition. SIADH in context of pneumonia also may be contributing - Na 134 (03/12), stable - held home Lasix and Metolazone, resume on discharge Dizziness -complains h/o dizziness/brain fog upon standing at home -orthostatics wnl -f/u outpatient Mass on Left Gómez -suspect soft tissue based, h/o of falls -US soft tissue left LE: likely hematoma Chronic bilateral 1st toe ulcers, chronic -follows with vascular outpatient -wound care consulted -US arterial duplex LE left: extensive atherosclerotic calcification, marked stenosis of distal superficial femoral artery Contaminant Bacteremia -blood cx grew gram positive cocci clusters in 1 tube; PCR neg for MRSA, staph aureus, epidermis, lugdunensis; MRSA nasal screen neg -repeat blood cx neg -vancomycin d/c'd (03/11) CAD/PAD -continued home Atorvastatin and Plavix Chronic HFpEF -Last EF 65-70% in 10/2021. Euvolemic on exam. Held home Lasix/Metolazone as stated above Iron Deficiency Anemia -Hgb 9.5 admission, microcytic/hypochromic, at chronic baseline. -Hgb stable at time of discharge -Continued daily ferrous sulfate Paroxysmal A-fib -continued home Metoprolol -remained rate-controlled during stay Chronic left hip osteomyelitis -continued Bactrim ppx Chronic pain/OA/muscle spasms -on chronic pain medications - continued home PRN Percocet, Lidocaine patch, scheduled Gabapentin, and Chlorzoxazone GERD -continued home Protonix Depression -continued home Wellbutrin Insomnia -continued home Trazodone (2) Hyponatremia: (3) Hypokalemia: (4) Anemia: (5) Afib: (6) Bilateral pleural effusion: (7) Arthritis of multiple sites: (8) Hypoalbuminemia due to protein-calorie malnutrition: (9) Pulmonary hypertension: (10) History of hip surgery: (11) CAD (coronary artery disease): (12) PAD (peripheral artery disease): (13) Chronic osteomyelitis of hip: (14) Hyperlipidemia: (15) Chronic ulcer of great toe: Total Time Total Time Spent Total Time Spent (In Minutes): 30 Discharge Plan Discharge Items Patient Disposition: Home - Self-Care Reason For Visit: COPD EXACERBATION, PNA Discharge Diagnosis: acute on chronic hypoxemic respiratory failure 2/2 atypical pneumonia Activity: Per Instructions section Non-emergency contact: Primary Care Provider Call non-emergency contact if: you have any medication questions and your symptoms worsen Follow-up/Referrals: Rayo Jordan DO [Primary Care Provider] - Diet: Regular Addtl Attending Provider Instructions: You were admitted to the hospital for 1 week of upper respiratory symptoms and shortness of breath. Your status was likely due to an atypical pneumonia which we treated with antibiotics, steroids, and supplemental oxygen. You recovered fairly quickly as you are now breathing well with no additional oxygen requirement. You do however still appear to be weak from this infection and have been working with the outpatient physical therapist. You are already set up with home health and physical therapy via the [place]. We will try to get you increased physical therapy while at home and case management will follow up with you regarding this. You should follow up with your PCP in the next 1-2 weeks. Pending Studies at Discharge: No Stand-Alone Forms: [facility] [employer], Smoking Cessation Medications and DC Order Prescriptions: Continued cholecalciferol (vitamin D3) 50 mcg (2,000 unit) capsule 50 mcg PO QAM lidocaine [Lidoderm] 5 % adhesive patch,medicated 1 patch topical DAILY PRN (Reason: Pain) Rx Instructions: leave on most painful area for up to 12 hrs oxybutynin chloride 5 mg tablet 5 mg PO HS furosemide [Lasix] 40 mg tablet 40 mg PO BID Qty: 60 2RF oxycodone-acetaminophen [Percocet] 5-325 mg tablet 1 tab PO Q8H PRN (Reason: pain) Qty: 90 0RF glucosamine-chondroitin [Osteo Bi-Flex] 250-200 mg tablet 1 tab PO BID Rx Instructions: give after food/meal metolazone 5 mg tablet 5 mg PO DAILY PRN (Reason: edema) Qty: 30 5RF Rx Instructions: take 30min prior to AM lasix dose. oxkyjpm-xklgcpygo-dxfq 333-133-5 mg tablet 1 tab PO HS povidone-iodine 10 % solution 1 applic topical DAILY Ensure Plus 0.05-1.5 gram-kcal/mL liquid 1 ea PO TID Rx Instructions: PO TID; gabapentin 400 mg capsule 800 mg PO TID clopidogrel [Plavix] 75 mg tablet 75 mg PO DAILY bacitracin 500 unit/gram packet 1 applic topical DAILY PRN (Reason: Skin Irritation) (DME) gauze bandage [Curad Gauze Pad] 4 X 4 " bandage See Rx Instructions .Route Rx Instructions: As directed (DME) HEEL LIFTS Misc See Rx Instructions .ROUTE .MEDSUPPLY Qty: 1 0RF Rx Instructions: As directed. 3in lift for left shoe ascorbic acid (vitamin C) [Vitamin C] 500 mg Tablet 500 mg PO QAM tamsulosin [Flomax] 0.4 mg Capsule 0.4 mg PO QPM bupropion HCl 100 mg tablet 100 mg PO BID pantoprazole 40 mg tablet,delayed release (DR/EC) 40 mg PO QAM Rx Instructions: 40 mg PO daily 1/2 hour prior to breakfast; chlorzoxazone 500 mg tablet 750 mg PO HS multivitamin Tablet 1 tab PO QAM trazodone 150 mg Tablet 150 mg PO HS omega 6-imv-nra-fish oil [Fish Oil] 1,200 (144-216) mg Capsule 1 cap PO QAM metoprolol tartrate 50 mg Tablet 25 mg PO BID atorvastatin 40 mg tablet 40 mg PO QAM fluticasone furoate-vilanterol [Breo Ellipta] 100-25 mcg/dose blister with device 1 inh inhalation BID ferrous sulfate 325 mg (65 mg iron) Tablet 325 mg PO QAM latanoprost 0.005 % Drops 1 drp ophthalmic (eye) HS Qty: 1 0RF prednisolone acetate 1 % Drops,Suspension 1 drp ophthalmic (eye) TID Qty: 1 0RF brimonidine 0.2 % Drops 1 drp ophthalmic (eye) BID Qty: 1 0RF dorzolamide-timolol 22.3-6.8 mg/mL Drops 1 drp ophthalmic (eye) TID Qty: 1 0RF sulfamethoxazole-trimethoprim [Bactrim DS] 800-160 mg Tablet 1 tab PO Q12H Qty: 0 0RF Rx Instructions: HX MRSA; place on hold while receiving doxycycline albuterol sulfate 90 mcg/actuation Hfa Aerosol Inhaler 2 puff INHALATION BID PRN (Reason: Shortness Of Breath Or Wheezing) Discharge Orders: Discharge Order (Routine); Ordered 03/13/22 Ordered By: Luan Cote Admission Data Admit Date/Time: 03/09/22 01:15 Attending Provider: Emanuel Mccray Admit Provider: Terrell Clemente Primary Care Provider: Rayo Jordan Other Providers: [facility] ; Jalil Dyer Other Interventions: Discharge Summary Assessment (RN) Last Done: 03/13/22 13:32 Supervising Physician Co-Signing Physician Notes Attending attestation Pt seen and examined in concert with Dr. Cote. In agreement with the documented findings as noted in the resident documentation with any exceptions or additions as noted here At time of discharge, patient reports SOB better than in 1.5 months without other acute complaint. Still with concerns re: overall weakness/deconditioning but PT evaluation as noted. On examination, S1/S2 nl RRR no MCG. Decreased BS throughout. Abd NT/ND BS+ve. Trace edema of the b/l LE with dry gangrene bilaterally stable chronically Acute on chronic hypoxic respiratory failure - returned to baseline. Completed course of azithromycin, complete couse of PO prednisone and monitor. Weakness, chronic - likely deconditioning and multifactorial illness - PT recommends home services from [place], will coordinate with care management to support. Else see resident documentation as noted. Total attending physician time spent with this patient's care on the day of discharge: 40 minutes. Resident Activity Tracking Resident Involvement: Resident Care Provided Care Provided: Adult Hospital Medicine
[2022-03-13] MEDS: ACETAMINOPHEN 325 MG TAB PO PRN (14:04)
== END 2022-03-13 16:30 | disposition home health service (06) | DRG 193 ==
LOC: ED 19:49 → 2S 03-09 01:15 → SUATTDRO 03-09 01:15 → 2S 03-09 01:46 → 3E 03-11 23:38

== ENCOUNTER 2022-07-20 10:21 | Inpatient (IN) ==
--- NOTE | 2022-06-21 16:34 | PAT Medication Instructions ---
Medication Instructions Date of Service June 21, 2022 Home Medications Medication Instructions Recorded brimonidine 0.2 % eye drops 1 drp ophthalmic (eye) BID #1 btl 11/26/21 dorzolamide 22.3 mg-timolol 6.8 1 drp ophthalmic (eye) TID #1 btl 11/26/21 mg/mL eye drops latanoprost 0.005 % eye drops 1 drp ophthalmic (eye) HS #1 btl 11/26/21 prednisolone acetate 1 % eye 1 drp ophthalmic (eye) TID #1 btl 11/26/21 drops,suspension sulfamethoxazole 800 1 tab PO Q12H MRSA wound Left Hip 11/26/21 mg-trimethoprim 160 mg tablet #0 tabs (Bactrim DS) HEEL LIFTS #1 ea 12/22/21 gabapentin 400 mg capsule 400 mg PO TID #270 caps 03/17/22 terbinafine HCl 250 mg tablet 250 mg PO DAILY #30 tabs 05/25/22 metolazone 5 mg tablet 5 mg PO DAILY PRN edema #30 tabs 05/26/22 oxycodone-acetaminophen 5 mg-325 1 tab PO Q8H PRN pain #90 tabs 06/16/22 mg tablet (Percocet) tamsulosin 0.4 mg capsule (Flomax) 0.4 mg PO QPM pantoprazole 40 mg tablet,delayed release 40 mg PO QAM multivitamin 1 tab PO QAM omega 6-zjg-lce-fish oil 1,200 mg (144 mg-216 mg) capsule (Fish Oil) 1 cap PO QAM trazodone 150 mg tablet 150 mg PO HS cholecalciferol (vitamin D3) 50 mcg (2,000 unit) capsule 50 mcg PO QAM lidocaine 5 % topical patch (Lidoderm) 1 patch topical DAILY PRN Pain metoprolol tartrate 50 mg tablet 25 mg PO BID Osteo Bi-Flex) 1 tab PO BID atorvastatin 40 mg tablet 40 mg PO QAM fluticasone furoate 100 mcg-vilanterol 25 mcg/dose inhalation powder (Breo Ellipta) 1 inh inhalation BID ferrous sulfate 325 mg (65 mg iron) tablet 325 mg PO QAM brimonidine 0.2 % eye drops 1 drp ophthalmic (eye) BID dorzolamide 22.3 mg-timolol 6.8 mg/mL eye drops 1 drp ophthalmic (eye) TID latanoprost 0.005 % eye drops 1 drp ophthalmic (eye) HS prednisolone acetate 1 % eye drops,suspension 1 drp ophthalmic (eye) TID sulfamethoxazole 800 mg-trimethoprim 160 mg tablet (Bactrim DS) 1 tab PO Q12H MRSA wound Left Hip clopidogrel 75 mg tablet (Plavix) 75 mg PO QAM food supplemt, lactose-reduced 0.05 gram-1.5 kcal/mL oral liquid (Ensure Plus) 1 ea PO TID povidone-iodine 10 % topical solution 1 applic topical DAILY albuterol sulfate 90 mcg/actuation aerosol inhaler 2 puff inhalation BID PRN Shortness Of Breath Or Wheezing gabapentin 400 mg capsule 400 mg PO TID bupropion HCl 100 mg tablet 200 mg PO BID furosemide 40 mg tablet (Lasix) 20 mg PO QAM methocarbamol 500 mg tablet 500 mg PO TID PRN MUSCLE RELAXANT potassium chloride 20 mEq/15 mL oral liquid See Rx Instructions .Route .COMPLEX sennosides 8.6 mg tablet 8.6 mg PO DAILY terbinafine HCl 250 mg tablet 250 mg PO DAILY metolazone 5 mg tablet 5 mg PO DAILY PRN edema oxycodone-acetaminophen 5 mg-325 mg tablet (Percocet) 1 tab PO Q8H PRN pain hydrocodone 5 mg-acetaminophen 325 mg tablet 1 tab PO TID PRN PAIN Continue as directed lidocaine 5 % topical patch (Lidoderm) 1 patch topical DAILY PRN Pain (avoid placement over surgery site prior to surgery) sulfamethoxazole 800 mg-trimethoprim 160 mg tablet (Bactrim DS) 1 tab PO Q12H MRSA wound Left Hip terbinafine HCl 250 mg tablet 250 mg PO DAILY ASK your prescriber and surgeon clopidogrel 75 mg tablet (Plavix) 75 mg PO QAM STOP taking 2 weeks before surgery (or as soon as possible if surgery is within 2 weeks) omega 5-cgk-yqc-fish oil 1,200 mg (144 mg-216 mg) capsule (Fish Oil) 1 cap PO QAM Osteo Bi-Flex 1 tab PO BID STOP taking 24 hours before surgery povidone-iodine 10 % topical solution 1 applic topical DAILY DO NOT take the morning of surgery multivitamin 1 tab PO QAM cholecalciferol (vitamin D3) 50 mcg (2,000 unit) capsule 50 mcg PO QAM ferrous sulfate 325 mg (65 mg iron) tablet 325 mg PO QAM food supplemt, lactose-reduced 0.05 gram-1.5 kcal/mL oral liquid (Ensure Plus) 1 ea PO TID furosemide 40 mg tablet (Lasix) 20 mg PO QAM methocarbamol 500 mg tablet 500 mg PO TID PRN MUSCLE RELAXANT potassium chloride 20 mEq/15 mL oral liquid See Rx Instructions .Route .COMPLEX sennosides 8.6 mg tablet 8.6 mg PO DAILY metolazone 5 mg tablet 5 mg PO DAILY PRN edema Take morning of surgery With a small sip of water, OTHERWISE NOTHING TO EAT OR DRINK AFTER MIDNIGHT: pantoprazole 40 mg tablet,delayed release 40 mg PO QAM metoprolol tartrate 50 mg tablet 25 mg PO BID atorvastatin 40 mg tablet 40 mg PO QAM fluticasone furoate 100 mcg-vilanterol 25 mcg/dose inhalation powder (Breo Ellipta) 1 inh inhalation BID brimonidine 0.2 % eye drops 1 drp ophthalmic (eye) BID dorzolamide 22.3 mg-timolol 6.8 mg/mL eye drops 1 drp ophthalmic (eye) TID prednisolone acetate 1 % eye drops,suspension 1 drp ophthalmic (eye) TID albuterol sulfate 90 mcg/actuation aerosol inhaler 2 puff inhalation BID PRN Shortness Of Breath Or Wheezing (use if needed; please bring rescue inhaler with you to hospital day of surgery if possible) gabapentin 400 mg capsule 400 mg PO TID bupropion HCl 100 mg tablet 200 mg PO BID oxycodone-acetaminophen 5 mg-325 mg tablet (Percocet) 1 tab PO Q8H PRN pain (if needed) hydrocodone 5 mg-acetaminophen 325 mg tablet 1 tab PO TID PRN PAIN (if needed) Take evening before surgery tamsulosin 0.4 mg capsule (Flomax) 0.4 mg PO QPM trazodone 150 mg tablet 150 mg PO HS metoprolol tartrate 50 mg tablet 25 mg PO BID fluticasone furoate 100 mcg-vilanterol 25 mcg/dose inhalation powder (Breo Ellipta) 1 inh inhalation BID brimonidine 0.2 % eye drops 1 drp ophthalmic (eye) BID dorzolamide 22.3 mg-timolol 6.8 mg/mL eye drops 1 drp ophthalmic (eye) TID latanoprost 0.005 % eye drops 1 drp ophthalmic (eye) HS prednisolone acetate 1 % eye drops,suspension 1 drp ophthalmic (eye) TID food supplemt, lactose-reduced 0.05 gram-1.5 kcal/mL oral liquid (Ensure Plus) 1 ea PO TID albuterol sulfate 90 mcg/actuation aerosol inhaler 2 puff inhalation BID PRN Shortness Of Breath Or Wheezing (if needed) gabapentin 400 mg capsule 400 mg PO TID bupropion HCl 100 mg tablet 200 mg PO BID methocarbamol 500 mg tablet 500 mg PO TID PRN MUSCLE RELAXANT (if needed) metolazone 5 mg tablet 5 mg PO DAILY PRN edema (if needed) oxycodone-acetaminophen 5 mg-325 mg tablet (Percocet) 1 tab PO Q8H PRN pain (if needed) hydrocodone 5 mg-acetaminophen 325 mg tablet 1 tab PO TID PRN PAIN (if needed) Other Notes If you have any questions please call us at [phone] or [phone] or [phone] or [phone]
--- NOTE | 2022-06-22 15:48 | Anesthesiology Consultation ---
Date of Service June 22, 2022 Assessment & Plan (1) Encounter for pre-operative examination: - COVID screening: Per assessment on 06/22: No known COVID-19 positive contacts or current COVID-19 related symptoms. Travel screen negative. Patient vaccinated. At surgeon discretion if preop Covid testing being done. - Outpatient joint assessment: Pt currently scheduled for inpatient pathway. If surgeon requests review for outpatient joint pathway, patient is not recommended candidate for outpatient joint program from anesthesia standpoint. - PCP office visit (05/25/22): "patient considering having his shoulder replaced.. patient may need clearance by pulmonary prior to having surgery." - Cardiology office visit (04/21/22): "Paroxysmal atrial fibrillation/flutter: We remain uncertain as to his atrial fibrillation burden and he continues to prefer a conservative approach meaning no further monitoring and no anticoagulation.. Second-degree AV block: He had Mobitz 1 second-degree AV block identified while on a beta-pantera, he is now back on a beta-pantera due to his coronary artery disease. Without monitoring I do not know if he continues to have AV block, he does not have symptoms to suggest significant bradycardia therefore this is probably acceptable for now. He is wearing a recorder now, although I would suggest an implantable monitor but he has declined in the past.. Coronary artery disease: He has documented coronary artery disease and is on risk factor modification including aspirin and atorvastatin 40 mg daily. He does not have symptoms to suggest angina. I think this is acceptable for now.. Congestive heart failure: He has had diastolic heart failure but does not have systolic heart failure. Currently he does not seem to be fluid overloaded." Workload message to be sent to make cardio aware of upcoming surgery/request perioperative recommendations (Dr Yepez). - Pt scheduled to see pulmonary 06/30- Workload message sent to make them aware of upcoming surgery/request perioperative recommendations (Dr. Calloway). Chart Review Chart Review: Patient seen in Pre Admission Testing Teaching & Discussion Pre-Anesthesia Teaching/Discussion Notes: Instructed NPO after midnight before surgery,except medications with 15 cc of water. Medication instructions provided according to the PAT guidelines. History Surgery Operation Date: 07/09/22 13:40 Proposed Procedures p Right Reverse Total Shoulder Arthroplasty - Yoel Ding DO Height/Weight Height: 6 ft Weight: 74.1 kg Allergies Allergy/AdvReac Type Severity Reaction Status Date / Time No Known Allergies Allergy Unknown Verified 06/18/22 11:49 Medications Home Medications Medication Instructions Recorded Confirmed Last Taken tamsulosin 0.4 mg capsule (Flomax) 0.4 mg PO QPM 01/10/19 06/18/22 03/07/22 pantoprazole 40 mg tablet,delayed 40 mg PO QAM 08/01/20 06/18/22 03/08/22 release multivitamin 1 tab PO QAM 10/05/20 06/18/22 03/08/22 omega 2-fix-ozk-fish oil 1,200 mg 1 cap PO QAM 10/05/20 06/18/22 03/08/22 (144 mg-216 mg) capsule (Fish Oil) trazodone 150 mg tablet 150 mg PO HS 10/05/20 06/18/22 03/07/22 cholecalciferol (vitamin D3) 50 50 mcg PO QAM 10/16/20 06/18/22 03/08/22 mcg (2,000 unit) capsule lidocaine 5 % topical patch 1 patch topical DAILY PRN Pain 10/16/20 06/18/22 Unknown (Lidoderm) metoprolol tartrate 50 mg tablet 25 mg PO BID 01/16/21 06/18/22 03/08/22 08:00 glucosamine-chondroitin 250 mg-200 1 tab PO BID 07/03/21 06/18/22 03/08/22 08:00 mg tablet (Osteo Bi-Flex) atorvastatin 40 mg tablet 40 mg PO QAM 07/29/21 06/18/22 03/08/22 fluticasone furoate 100 1 inh inhalation BID 07/29/21 06/18/22 03/08/22 08:00 mcg-vilanterol 25 mcg/dose inhalation powder (Breo Ellipta) ferrous sulfate 325 mg (65 mg 325 mg PO QAM 11/09/21 06/18/22 03/08/22 iron) tablet brimonidine 0.2 % eye drops 1 drp ophthalmic (eye) BID #1 btl 11/26/21 06/18/22 03/08/22 08:00 dorzolamide 22.3 mg-timolol 6.8 1 drp ophthalmic (eye) TID #1 btl 11/26/21 06/18/22 03/08/22 14:00 mg/mL eye drops latanoprost 0.005 % eye drops 1 drp ophthalmic (eye) HS #1 btl 11/26/21 06/18/22 03/07/22 prednisolone acetate 1 % eye 1 drp ophthalmic (eye) TID #1 btl 11/26/21 06/18/22 03/08/22 14:00 drops,suspension sulfamethoxazole 800 1 tab PO Q12H MRSA wound Left Hip 11/26/21 06/18/22 03/08/22 mg-trimethoprim 160 mg tablet #0 tabs (Bactrim DS) clopidogrel 75 mg tablet (Plavix) 75 mg PO QAM 12/16/21 06/18/22 03/08/22 food supplemt, lactose-reduced 1 ea PO TID 12/16/21 06/18/22 03/08/22 12:00 0.05 gram-1.5 kcal/mL oral liquid (Ensure Plus) gauze bandage 4" X 4" (Curad Gauze 12/16/21 05/25/22 Unknown Pad) povidone-iodine 10 % topical 1 applic topical DAILY 12/16/21 06/18/22 03/08/22 solution HEEL LIFTS #1 ea 12/22/21 05/25/22 Unknown albuterol sulfate 90 mcg/actuation 2 puff inhalation BID PRN 03/08/22 06/18/22 Unknown aerosol inhaler Shortness Of Breath Or Wheezing gabapentin 400 mg capsule 400 mg PO TID #270 caps 03/17/22 06/18/22 Unknown bupropion HCl 100 mg tablet 200 mg PO BID 05/25/22 06/18/22 Unknown furosemide 40 mg tablet (Lasix) 20 mg PO QAM 05/25/22 06/18/22 Unknown methocarbamol 500 mg tablet 500 mg PO TID PRN MUSCLE RELAXANT 05/25/22 06/18/22 Unknown potassium chloride 20 mEq/15 mL See Rx Instructions .Route .COMPLEX 05/25/22 06/18/22 Unknown oral liquid sennosides 8.6 mg tablet 8.6 mg PO DAILY 05/25/22 06/18/22 Unknown terbinafine HCl 250 mg tablet 250 mg PO DAILY #30 tabs 05/25/22 06/18/22 Unknown metolazone 5 mg tablet 5 mg PO DAILY PRN edema #30 tabs 05/26/22 06/18/22 Unknown oxycodone-acetaminophen 5 mg-325 1 tab PO Q8H PRN pain #90 tabs 06/16/22 06/18/22 Unknown mg tablet (Percocet) hydrocodone 5 mg-acetaminophen 325 1 tab PO TID PRN Pain 06/18/22 06/18/22 Unkn own mg tablet Past Medical History Medical History Anemia Anxiety Stable/controlled per pt Follows with [facility] Atrial flutter, paroxysmal Per cardio visit 04/21/22, "We remain uncertain as to his atrial fibrillation burden and he continues to prefer a conservative approach meaning no further monitoring and no anticoagulation." Chronic back pain Chronic hypoxemic respiratory failure Follows with [facility], previously on supplementation oxygen (has not had for several months) Chronic osteomyelitis of hip Bactrim ppx Chronic ulcer of great toe Follows with [facility] COVID-19 virus infection 08/2020 > Covid PNA, acute respiratory failure with hypoxia requiring BiPAP, also hospitalized 09/2020 with B/L pleural effusion and differential including potential correlation to recent COVID illness Degeneration of cervical intervertebral disc Depression Stable/controlled per pt Follows with [facility] Glaucoma Hearing deficit Hearing aid (left) Heart failure Diastolic Follows with ([facility]/Dr. Sheffield) History of blood transfusion [id number] (with multiple hip surgeries) Hx MRSA infection Left hip since 2009, Chronic/penitentiary bactrim daily Hyperlipidemia Hypokalemia Leg length discrepancy RLE > LLE s/p multiple left hip revisions (per patient, missing hip joint) due to complications from hip surgery/revisions/MRSA infection- on chronic preventative Bactrim-- uses shoe with elevated heel/crutches Osteoarthritis Osteoporosis Peptic ulcer disease 2019 Pleural effusion Recurrent (most recent need for drainage several months ago) Pneumonia Recent hospitalization 04/2022 PNA/pleural effusion ([facility]) Pulmonary hypertension Restless leg syndrome Transient ischemic attack (TIA) ~2014 Exercise / Class Metabolic Activity III < 4 Walking/Shop/Light housework (Uses crutches to ambulate) Past Family History Family History Father , about age 60 Cerebral aneurysm Mother No pertinent past medical history Grandmother (Maternal) Myocardial infarction Denies family history of Ovarian cancer Prostate cancer Crohn's disease Breast cancer Colorectal cancer Ulcerative colitis Past Surgical History Surgical History H/O eye surgery 2 DRAINAGE TUBES RT/LEFT EYES FOR GLAUCOMA currently in place Retinal lift and cadaver placement week of 08/03/2021 in [place] History of bilateral cataract extraction History of cardiac cath 01/2021 [facility]: "Medical management of moderate to severe CAD" NO STENTS History of colonoscopy History of esophagogastroduodenoscopy (EGD) History of hip surgery LEFT HIP SURGERY/REVISIONS (TOTAL OF 9 SURGERIES) History of laminectomy L3-L5 laminectomy: 05/12/15: Grade view 1, MAC#3, ETT 8.0 (atraumatic DL x 1) at [facility] History of thoracentesis 04/2022 [facility] History of tonsillectomy and adenoidectomy History of tooth extraction Status post reverse total arthroplasty of left shoulder 07/03/2019: Grade 1 view, MAC#3, ETT#8.0, atraumatic x 1 + PNB. Past Anesthesia History No Hx of Anesthesia Complications and No Family Hx of Anesthesia Complications History of PONV No Hx of PONV and No Hx of Motion Sickness Social History Smoking Status: Former smoker tobacco type: cigarettes Do You Dip or Chew Tobacco: No (Quit 6 months ago) Smoking End Date: Quit 20 years ago (hx 1 PPD) Hx Alcohol Use: Yes Alcohol type: beer alcohol intake frequency: holidays/special occasions only Hx Substance Use: No substance use type: does not use Last Used Substance Other:: hx medical marijuana card- does not currently use- last use 1 yr ago Review of Systems Patient denies chest pain, shortness of breath, fever, chills, cough, wheezing, palpitations. Physical Exam Vital Signs VITALS BP 129/64 P 58 TEMP 98.4 SP02 95%RA RESP 18 PHYSICAL Full cervical extension range of motion. Full TMJ range of motion. TMD 3 finger breaths Mallampati Score 3 Dentition: full upper/lower dentures Lungs: dimished breath sounds Cardiac: regular rate and rhythm, no murmurs noted Spine: normal Carotid arteries: negative bruit Extremities: no edema Lab Results Anesthesia Preop Results Results Anesthesia Widget: WBC 7.44 K/ul (4.8-10.8) 06/22/22 Hgb 10.0 g/dl (14.0-18.0) L 06/22/22 Hct 32.6 % (40.1-51.0) L 06/22/22 Plt 376 K/uL (130-400) 06/22/22 Na 134 mmol/L (136-145) L 06/22/22 K 4.3 mmol/L (3.5-5.1) 06/22/22 Cl 104 mmol/L (98-107) 06/22/22 CO2 26 mmol/L (21-32) 06/22/22 BUN 15 mg/dl (6-23) 06/22/22 Creat 0.76 mg/dl (0.6-1.4) 06/22/22 Glucose Level 74 mg/dl (70-99(Fasting)) 06/22/22 PT 11.5 Seconds (9.0-12.0) 06/22/22 PTT 32.5 Seconds (21.0-31.0) H 06/22/22 INR 1.1 (0.9-1.1) 06/22/22 HA1c 5.0 % (4.5-5.6) 06/22/22 Blood Type O Positive 06/22/22 Antibody Screen NEGATIVE 06/22/22 Testing Electrocardiogram Date: 05/24/22 Findings: + NSR @ (84) Chest X-Ray Date: 06/22/22 FINDINGS: Left shoulder arthroplasty is incidentally noted. Old right clavicular fracture is present. There is no pneumothorax. Moderate right and trace left pleural effusions are present. Right lower lung airspace opacity with volume loss has slightly increased since prior exam. Pulmonary vascular congestion is unchanged. There are old left-sided rib fractures. There is no consolidation within the left lung. IMPRESSION:Moderate right pleural effusion, similar to prior exam. Mild increase in right lower lung airspace opacity with volume loss. Trace left pleural effusion. No change in pulmonary vascular congestion. Echocardiogram Date: 11/25/21 EF 65 to 70%. No regional motion abnormality. Mild concentric LVH. Compared to prior study 01/29/2021, no significant change per report. Cardiac Catheterization Date: 02/09/21 Moderate to severe coronary artery disease: 60 to 70% earlymid LAD, 50% latemid LAD, 50% right posterior AV branch Fluid sensitive elevated left and right-sided filling pressures. Mild pulmonary hypertension after IV fluids (postcapillary) Preserved cardiac output No evidence of constrictive physiology Recommendations: Findings most consistent with left-sided heart failure/diastolic dysfunction (restrictive-like physiology). Recommend continued salt restriction, daily weights, maintenance diuretics Medical management of moderate to severe CAD. If refractory exertional symptoms in the future could consider FFR +/- PCI of calcified LAD, RCA Continued ASCVD risk factor modification COVID-19 Risk Screen Screening Information COVID-19 Screen Date: 06/22/22 Exposure 21 Days Family/Household +COVID Last 21 Days: No Exposure 10 Days Any COVID Exposure Last 10 Days: No Symptoms Last 10 Days Experienced COVID Sx Last 10 Days: No + COVID 0-90 Days COVID + in Last 0-90 Days: No
--- NOTE | 2022-07-08 07:22 | History & Physical Report ---
Date of Service July 08, 2022 Assessment & Plan (1) Rotator cuff tear arthropathy of right shoulder: We will proceed with a right reverse shoulder arthroplasty. Postoperatively he will be placed in a sling and kept overnight in the hospital for postoperative medical management. He plans to have the hospital set up home health upon discharge. History of Present Illness Chief Complaint: Cuff tear arthropathy of the right shoulder. Primary Care Provider: Rayo Jordan DO Brennan is a pleasant 71-year-old male who is been doing with chronic increasing right shoulder pain. X-rays and clinical examination have been diagnostic for cuff arthropathy of the right shoulder. I did a left reverse shoulder arthroplasty on him in 2019 he has done well with that. After failing conservative treatment, he is elected to proceed with a right reverse shoulder replacement.. Allergies Allergy/AdvReac Type Severity Reaction Status Date / Time No Known Allergies Allergy Unknown Verified 06/18/22 11:49 Home Medications Medication Instructions Recorded Confirmed Type tamsulosin 0.4 mg capsule (Flomax) 0.4 mg PO QPM 01/10/19 07/07/22 History pantoprazole 40 mg tablet,delayed 40 mg PO QAM 08/01/20 07/07/22 History release multivitamin 1 tab PO QAM 10/05/20 07/07/22 History omega 5-qru-jhn-fish oil 1,200 mg 1 cap PO QAM 10/05/20 07/07/22 History (144 mg-216 mg) capsule (Fish Oil) trazodone 150 mg tablet 150 mg PO HS 10/05/20 07/07/22 History cholecalciferol (vitamin D3) 50 50 mcg PO QAM 10/16/20 07/07/22 History mcg (2,000 unit) capsule lidocaine 5 % topical patch 1 patch topical DAILY PRN Pain 10/16/20 07/07/22 History (Lidoderm) metoprolol tartrate 50 mg tablet 25 mg PO BID 01/16/21 07/07/22 History glucosamine-chondroitin 250 mg-200 1 tab PO BID 07/03/21 07/07/22 History mg tablet (Osteo Bi-Flex) atorvastatin 40 mg tablet 40 mg PO QAM 07/29/21 07/07/22 History fluticasone furoate 100 1 inh inhalation BID 07/29/21 07/07/22 History mcg-vilanterol 25 mcg/dose inhalation powder (Breo Ellipta) ferrous sulfate 325 mg (65 mg 325 mg PO QAM 11/09/21 07/07/22 History iron) tablet brimonidine 0.2 % eye drops 1 drp ophthalmic (eye) BID #1 btl 11/26/21 07/07/22 Rx dorzolamide 22.3 mg-timolol 6.8 1 drp ophthalmic (eye) TID #1 btl 11/26/21 07/07/22 Rx mg/mL eye drops latanoprost 0.005 % eye drops 1 drp ophthalmic (eye) HS #1 btl 11/26/21 07/07/22 Rx prednisolone acetate 1 % eye 1 drp ophthalmic (eye) TID #1 btl 11/26/21 07/07/22 Rx drops,suspension sulfamethoxazole 800 1 tab PO Q12H MRSA wound Left Hip 11/26/21 07/07/22 Rx mg-trimethoprim 160 mg tablet #0 tabs (Bactrim DS) food supplemt, lactose-reduced 1 ea PO TID 12/16/21 07/07/22 History 0.05 gram-1.5 kcal/mL oral liquid (Ensure Plus) gauze bandage 4" X 4" (Curad Gauze 12/16/21 06/24/22 History Pad) povidone-iodine 10 % topical 1 applic topical DAILY 12/16/21 07/07/22 History solution HEEL LIFTS #1 ea 12/22/21 06/24/22 Rx albuterol sulfate 90 mcg/actuation 2 puff inhalation BID PRN 03/08/22 07/07/22 History aerosol inhaler Shortness Of Breath Or Wheezing gabapentin 400 mg capsule 400 mg PO TID #270 caps 03/17/22 07/07/22 Rx bupropion HCl 100 mg tablet 200 mg PO BID 05/25/22 07/07/22 History furosemide 40 mg tablet (Lasix) 20 mg PO QAM 05/25/22 07/07/22 History methocarbamol 500 mg tablet 500 mg PO TID PRN MUSCLE RELAXANT 05/25/22 07/07/22 History potassium chloride 20 mEq/15 mL See Rx Instructions .Route .COMPLEX 05/25/22 07/07/22 History oral liquid sennosides 8.6 mg tablet 8.6 mg PO DAILY 05/25/22 07/07/22 History terbinafine HCl 250 mg tablet 250 mg PO DAILY #30 tabs 05/25/22 07/07/22 Rx metolazone 5 mg tablet 5 mg PO DAILY PRN edema #30 tabs 05/26/22 07/07/22 Rx oxycodone-acetaminophen 5 mg-325 1 tab PO Q8H PRN pain #90 tabs 06/16/22 07/07/22 Rx mg tablet (Percocet) hydrocodone 5 mg-acetaminophen 325 1 tab PO TID PRN Pain 06/18/22 07/07/22 History mg tablet aspirin 81 mg tablet 81 mg PO DAILY 07/02/22 07/07/22 History Past Med/Surg History Medical History Anemia Anxiety Stable/controlled per pt Follows with [facility] Atrial flutter, paroxysmal Per cardio visit 04/21/22, "We remain uncertain as to his atrial fibrillation burden and he continues to prefer a conservative approach meaning no further monitoring and no anticoagulation." Chronic back pain Chronic hypoxemic respiratory failure Follows with [facility], previously on supplementation oxygen (has not had for several months) Chronic osteomyelitis of hip Bactrim ppx Chronic ulcer of great toe Follows with [place] [facility] COVID-19 virus infection 08/2020 > Covid PNA, acute respiratory failure with hypoxia requiring BiPAP, also hospitalized 09/2020 with B/L pleural effusion and differential including potential correlation to recent COVID illness Degeneration of cervical intervertebral disc Depression Stable/controlled per pt Follows with [facility] Glaucoma Hearing deficit Hearing aid (left) Heart failure Diastolic Follows with ([facility]/Dr. Sheffield) History of blood transfusion [id number] (with multiple hip surgeries) Hx MRSA infection Left hip since 2009, Chronic/[facility] bactrim daily Hyperlipidemia Hypokalemia Leg length discrepancy RLE > LLE s/p multiple left hip revisions (per patient, missing hip joint) due to complications from hip surgery/revisions/MRSA infection- on chronic preventative Bactrim-- uses shoe with elevated heel/crutches Osteoarthritis Osteoporosis Peptic ulcer disease 2019 Pleural effusion Recurrent (most recent need for drainage several months ago) Pneumonia Recent hospitalization 04/2022 PNA/pleural effusion ([facility]) Pulmonary hypertension Restless leg syndrome Transient ischemic attack (TIA) ~2014 Surgical History H/O eye surgery 2 DRAINAGE TUBES RT/LEFT EYES FOR GLAUCOMA currently in place Retinal lift and cadaver placement week of 08/03/2021 in [place] History of bilateral cataract extraction History of cardiac cath 01/2021 [facility]: "Medical management of moderate to severe CAD" NO STENTS History of colonoscopy History of esophagogastroduodenoscopy (EGD) History of hip surgery LEFT HIP SURGERY/REVISIONS (TOTAL OF 9 SURGERIES) History of laminectomy L3-L5 laminectomy: 05/12/15: Grade view 1, MAC#3, ETT 8.0 (atraumatic DL x 1) at [facility] History of thoracentesis 04/2022 [facility] History of tonsillectomy and adenoidectomy History of tooth extraction Status post reverse total arthroplasty of left shoulder 07/03/2019: Grade 1 view, MAC#3, ETT#8.0, atraumatic x 1 + PNB. Family History Father , about age 60 Cerebral aneurysm Mother No pertinent past medical history Grandmother (Maternal) Myocardial infarction Denies family history of Ovarian cancer Prostate cancer Crohn's disease Breast cancer Colorectal cancer Ulcerative colitis Social History Smoking Status: Former smoker Tobacco Type: Smokeless Tobacco (Dip or Chew) Age Started Using Tobacco: 15; packs per day: 1.5; Second Hand Exposure: No; Hx Alcohol Use: No Hx Substance Use: Yes Last Used Substance Other:: hx medical marijuana card- does not currently use- last use 1 yr ago Preferred Language: Vietnamese Communication Ability: Effective Visual Impairment: No Limitations Hearing Ability: Normal Dry Roller Required: No Beliefs That Will Affect Care: None marital status: Current Living Situation: Spouse current occupational status: retired 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 Physical Exam On physical examination the right shoulder, he has decreased range of motion weakness throughout. He has pain of the glenohumeral joint line.. Constitutional WD/WN, vitals as above Eyes PERRL, conjunctivae normal, anicteric sclerae ENMT external ear and nose normal, oropharynx normal Neck trachea midline, no thyromegaly Respiratory normal respiratory effort, lungs clear to auscultation Cardiovascular RRR, no murmur, no edema Gastrointestinal (Abdomen) normal bowel sounds, soft, nontender, no hepatosplenomegaly Skin no rashes, warm and dry Psychiatric A+Ox3, euthymic affect Results & Data Results & Data Laboratory Results . Diagnostic Findings X-rays of the right shoulder show advanced osteoarthritis with joint space narrowing and superior migration of the humeral head on the glenoid.. PG Care Time/CCT Total # of Minutes Spent Total Time Spent with Patient: Total time spent is greater than 50% in coordination of care (as documented) at patient's floor/unit and/or counseling patient: Coding Level of Care Code None Diagnoses Rotator cuff tear arthropathy of right shoulder M75.101; M12.811
[~2022-07-20 10:21] MED LIST changes: -CEFAZOLIN 2000MG 2,000 MG/15 ML SYR IV SCH; +ORTHO JOINT MIX INFIL SCH; -ROPIVACAINE 0.5% HCL/PF 150 MG, BUPIVACAINE 0.5% MPF 30 ML, EPINEPHrine 30MG/30ML (OR U... INSTIL SCH; +ceFAZolin 2000MG 2,000 MG/15 ML SYR IV SCH; +dexAMETHasone 4 MG TAB PO SCH
--- NOTE | 2022-07-20 10:37 | History & Physical Bridge Note ---
Date of Service July 20, 2022 History & Physical Bridge Note I have examined the patient, reviewed the History & Physical and in the interval since the performance of the History & Physical I have noted the following changes of clinical significance: no changes noted
[2022-07-20] MEDS ORDERED: MIDAZOLAM HCL 1 MG/ML 2ML VIAL ONE (11:38)
[2022-07-20] MEDS ORDERED: fentaNYL citrate 100 MCG/2 ML VIAL ONE (11:38)
[2022-07-20] MEDS ORDERED: ONDANSETRON INJ 2 MG/ML 2 ML VIAL ONE (11:43)
[2022-07-20] MEDS ORDERED: PROPOFOL IV EMULSION 10 MG/ML 20 ML VIAL IV ONE (11:43)
[2022-07-20] MEDS ORDERED: LIDOCAINE 2% MPF LOCAL 5 ML VIAL INFIL ONE (11:43)
[2022-07-20] MEDS ORDERED: DEXAMETHASONE SOD INJ 4 MG/ML VIAL ONE (11:43)
[2022-07-20] MEDS ORDERED: ATROPINE SULFATE 0.1 MG/ML 10ML SYR IV PRN (11:48)
[2022-07-20] MEDS ORDERED: ONDANSETRON INJ 2 MG/ML 2 ML VIAL IV PRN ×2 (11:48→15:23)
[2022-07-20] MEDS ORDERED: HYDROmorphone INJ 1 MG/ML SYRINGE IV PRN (11:48)
[2022-07-20] MEDS ORDERED: ePHEDrine sulfate 50 MG/ML AMP IV PRN (11:48)
[2022-07-20] MEDS ORDERED: PHENYLEPHRINE 100MCG/ML 5ML SYR IV PRN (11:48)
[2022-07-20] MEDS ORDERED: LABETALOL HCL IV 5 MG/ML 20ML IV PRN (11:48)
[2022-07-20] MEDS ORDERED: MEPERIDINE HCL 25 MG/ML CARP/VIAL IV PRN (11:48)
[2022-07-20] MEDS ORDERED: fentaNYL citrate 100 MCG/2 ML VIAL IV PRN (11:48)
[2022-07-20] MEDS ORDERED: ROPIVACAINE 0.5% 5 MG/ML 30 ML VIAL ONE (11:57)
[2022-07-20] MEDS ORDERED: EPINEPHrine INJ 1 MG/ML AMP ONE (11:57)
[2022-07-20] MEDS ORDERED: ORTHO JOINT ANESTHETIC ONE (12:25)
[2022-07-20] MEDS ORDERED: ROCURONIUM BROMIDE 10 MG/ML 5 ML VIAL IV ONE (12:47)
[2022-07-20] MEDS ORDERED: ePHEDrine sulfate 50 MG/ML SYR ONE (13:00)
[2022-07-20] MEDS ORDERED: NEOSTIGMINE METHYLSULFATE 1 MG/ML 10ML VIAL ONE (14:22)
[2022-07-20] MEDS ORDERED: GLYCOPYRROLATE 0.2 MG/ML VIAL ONE (14:22)
--- NOTE | 2022-07-20 14:48 | Anesthesiology Progress Note ---
Date of Service July 20, 2022 Anesthesia Post Procedure Vital Signs Vital Signs: Temp Pulse Resp BP Pulse Ox O2 Del Method 07/20/22 10:53 Room Air 07/20/22 10:51 37 C 69 16 137/63 98 Room Air Pain Intensity Right Shoulder: Pain Intensity: 1 Transfer of Care Handoff Completed per policy Notes Mental Status: alert / awake / arousable Patient Amnestic to Procedure: Yes Nausea / Vomiting: adequately controlled Pain: adequately controlled Airway Patency, RR, SpO2: stable & adequate BP & HR: stable & adequate Hydration State: stable & adequate Anesthetic Complications: no major complications apparent and Pt Satisfied with anesthetic care Notes: The patient is awake and comfortable. His vital signs are stable.
--- NOTE | 2022-07-20 14:51 | XRay Report ---
XR shoulder RT min 2V routine CLINICAL HISTORY: Post shoulder surgery TECHNIQUE: 3 views of the right shoulder were obtained. Comparison: Comparison is made to right shoulder radiographs 05/24/2022 FINDINGS: Patient is status post shoulder arthroplasty with expected postsurgical changes including soft tissue swelling and subcutaneous emphysema. No periarticular lucency or hardware fracture is seen. Intersti tial thickening is seen and there is right cardiomediastinal shift. Nonspecific right lung base densi ty is noted. IMPRESSION: 1. Expected postoperative appearance status post placement of shoulder arthroplasty. 2. Nonspecific right pleural-based density is noted. If further evaluation is desired, chest radiogr aph can be performed. ACT 112: Negative or not required by law. Electronically signed by: Greg Squires M.D. 07/20/2022 2:50 PM
[2022-07-20] MEDS ORDERED: MAGNESIUM HYDROXIDE SUSP 30 ML UDC PO PRN (15:23)
[2022-07-20] MEDS ORDERED: METOCLOPRAMIDE HCL INJ 5 MG/ML 2 ML VIAL IV PRN (15:23)
[2022-07-20] MEDS ORDERED: NALOXONE HCL 0.4 MG/1 ML VIAL/CARP IV PRN (15:23)
[2022-07-20] MEDS ORDERED: ALBUTEROL HFA 8 GM INHALER INH PRN (15:23)
[2022-07-20] MEDS ORDERED: LIDOCAINE 5% 1 PATCH TD PRN (15:23)
[2022-07-20] MEDS ORDERED: metOLazone 5 MG TABLET PO PRN (15:23)
[2022-07-20] MEDS ORDERED: bisacodyL 10 MG SUPP PR PRN (15:23)
[2022-07-20] MEDS: SODIUM CHLORIDE 0.9% 1000ML 1,000 ML IV SCH (16:08)
[2022-07-20] MEDS: KETOROLAC TROMETHAMINE 15 MG/ML VIAL IV SCH ×2 (16:28→21:38)
[2022-07-20] MEDS: SULFAMETHOXAZOLE/TRIMETHOPRIM DS 800/160MG TAB PO SCH (17:25)
[2022-07-20] MEDS: POTASSIUM CHLORIDE 20 MEQ/15 ML UDC PO SCH (18:58)
[2022-07-20] MEDS ORDERED: [UNRECOGNIZED DRUG - OTHER] PO SCH (21:00)
[2022-07-20] MEDS: ceFAZolin 2000MG 2,000 MG/15 ML SYR IV SCH (21:19)
[2022-07-20] MEDS: ACETAMINOPHEN 500 MG TAB PO SCH (21:20)
[2022-07-20] MEDS: BRIMONIDINE TARTRATE 0.2% 5ML OP SCH (21:21)
[2022-07-20] MEDS: TAMSULOSIN HCL 0.4 MG CAP PO SCH (21:21)
[2022-07-20] MEDS: LATANOPROST 0.005% OP SOLN 2.5 ML BTL OP SCH (21:22)
[2022-07-20] MEDS: prednisoLONE acetate 1% OP SUSP 5 ML BTL OP SCH (21:23)
[2022-07-20] MEDS: DORZOLAMIDE/TIMOLOL 22.3/6.8MG/ML 10 ML BTL OP SCH (21:23)
[2022-07-20] MEDS: GABAPENTIN 400 MG CAP PO SCH (21:25)
[2022-07-20] MEDS: FLUTICASONE/VILANTEROL 100/25MCG 14 PUFFS/INHALER INH SCH (21:26)
[2022-07-20] MEDS: buPROPion HCl 100 MG TABLET PO SCH (21:27)
[2022-07-20] MEDS: SENNA 8.6 MG TAB PO SCH (21:28)
[2022-07-20] MEDS: DOCUSATE SODIUM 100 MG CAP PO SCH (21:28)
[2022-07-20] MEDS: METOPROLOL TARTRATE 25 MG TAB PO SCH (21:37)
[2022-07-20] MEDS: traZODone HCL 50 MG TAB PO SCH (21:37)
[2022-07-21] MEDS: SODIUM CHLORIDE 0.9% 1000ML 1,000 ML IV SCH (00:43)
[2022-07-21] MEDS: KETOROLAC TROMETHAMINE 15 MG/ML VIAL IV SCH ×4 (04:23→21:47)
[2022-07-21] MEDS: ceFAZolin 2000MG 2,000 MG/15 ML SYR IV SCH (04:24)
[2022-07-21] MEDS: ACETAMINOPHEN 500 MG TAB PO SCH ×3 (05:19→21:41)
--- NOTE | 2022-07-21 05:49 | Orthopedic Progress Note ---
Date of Service July 21, 2022 Assessment & Plan (1) Status post reverse total replacement of right shoulder: Overall he is doing very well. He is not having much pain in the right shoulder. He will be seen by physical therapy today for ambulation and range of motion exercises. He can be discharged to the [facility] in [place] when a bed becomes available. He will follow-up with orthopedics in 2 weeks. Eran Amin was seen and examined at bedside this morning. Overall is doing fairly well. Is not having much pain in the right shoulder. He was able to get some sleep last night. He has no complaints.. Review of Systems All systems reviewed & are unremarkable except as noted in HPI & below. Physical Exam On physical examination of the right shoulder, the dressing is clean and dry. He is wearing his sling as instructed. He has active motion of his hand and his wrist.. . Results & Data Results & Data Laboratory Results . Diagnostic Findings Postoperative x-rays of the right shoulder show the prosthesis to be in good alignment without any evidence of fracture, desiccation, or loosening. PG Care Time/CCT Total # of Minutes Spent Total Time Spent with Patient: Total time spent is greater than 50% in coordination of care (as documented) at patient's floor/unit and/or counseling patient: Coding Level of Care Code 07066 Post Operative Follow-Up Diagnoses Status post reverse total replacement of right shoulder Z96.611
[2022-07-21] MEDS: oxyCODONE HCL IR 5 MG TAB (IMMEDIATE RELEASE) PO PRN ×4 (06:32→21:41)
[2022-07-21] MEDS: FLUTICASONE/VILANTEROL 100/25MCG 14 PUFFS/INHALER INH SCH ×2 (07:44→21:35)
[2022-07-21] MEDS: prednisoLONE acetate 1% OP SUSP 5 ML BTL OP SCH ×3 (07:44→21:38)
[2022-07-21] MEDS: POTASSIUM CHLORIDE 20 MEQ/15 ML UDC PO SCH (07:44)
[2022-07-21] MEDS: BRIMONIDINE TARTRATE 0.2% 5ML OP SCH ×2 (07:45→21:38)
[2022-07-21] MEDS: SULFAMETHOXAZOLE/TRIMETHOPRIM DS 800/160MG TAB PO SCH ×2 (07:45→16:38)
[2022-07-21] MEDS: ASPIRIN 81 MG ECTAB PO SCH (07:45)
[2022-07-21] MEDS: DORZOLAMIDE/TIMOLOL 22.3/6.8MG/ML 10 ML BTL OP SCH ×3 (07:45→21:39)
[2022-07-21] MEDS: ATORVASTATIN 40 MG TAB PO SCH (07:46)
[2022-07-21] MEDS: buPROPion HCl 100 MG TABLET PO SCH ×2 (07:47→21:33)
[2022-07-21] MEDS: FERROUS SULFATE 325 MG TAB PO SCH (07:48)
[2022-07-21] MEDS: DOCUSATE SODIUM 100 MG CAP PO SCH ×2 (07:48→21:34)
[2022-07-21] MEDS: METOPROLOL TARTRATE 25 MG TAB PO SCH ×2 (07:48→21:34)
[2022-07-21] MEDS: FUROSEMIDE 20 MG TAB PO SCH (07:48)
[2022-07-21] MEDS: GABAPENTIN 400 MG CAP PO SCH ×3 (07:48→21:33)
[2022-07-21] MEDS: PANTOprazole 40 MG TAB PO SCH (07:49)
[2022-07-21] MEDS: SENNA 8.6 MG TAB PO SCH ×2 (07:49→21:35)
[2022-07-21] MEDS: MULTIVITAMIN TAB PO SCH (07:49)
[2022-07-21] MEDS ORDERED: dexAMETHasone 4 MG TAB PO SCH (08:00)
[2022-07-21] MEDS ORDERED: NON-FORMULARY MEDICATION (Multivitamin Tablet) PO SCH (09:00)
[2022-07-21] MEDS: TAMSULOSIN HCL 0.4 MG CAP PO SCH (21:33)
[2022-07-21] MEDS: traZODone HCL 50 MG TAB PO SCH (21:33)
[2022-07-21] MEDS: LATANOPROST 0.005% OP SOLN 2.5 ML BTL OP SCH (21:38)
[2022-07-22] MEDS: oxyCODONE HCL IR 5 MG TAB (IMMEDIATE RELEASE) PO PRN ×4 (01:47→20:52)
[2022-07-22] MEDS: KETOROLAC TROMETHAMINE 15 MG/ML VIAL IV SCH ×2 (04:27→08:47)
[2022-07-22] MEDS: ACETAMINOPHEN 500 MG TAB PO SCH ×3 (06:27→21:55)
--- NOTE | 2022-07-22 07:44 | Orthopedic Progress Note ---
Date of Service July 22, 2022 Assessment & Plan (1) Status post reverse total replacement of right shoulder: Overall is doing well. He is not having much pain in the right shoulder. He will be seen by physical therapy for ambulation and range of motion exercises. We are currently awaiting insurance authorization for placement in rehab facility. He is orthopedically stable for discharge when a bed becomes available. Eran Amin was seen and examined at bedside this morning. Overall he is doing well. He is having a little bit of soreness in the shoulder. He was able to get some sleep last night. Has no complaint.. Review of Systems All systems reviewed & are unremarkable except as noted in HPI & below. Physical Exam On physical examination of the right shoulder, the dressing is clean and dry. He is wearing his sling as instructed. He is neurovascular intact.. Results & Data Results & Data Laboratory Results . Diagnostic Findings . PG Care Time/CCT Total # of Minutes Spent Total Time Spent with Patient: Total time spent is greater than 50% in coordination of care (as documented) at patient's floor/unit and/or counseling patient: Coding Level of Care Code 62340 Post Operative Follow-Up Diagnoses Status post reverse total replacement of right shoulder Z96.611
[2022-07-22] MEDS: DORZOLAMIDE/TIMOLOL 22.3/6.8MG/ML 10 ML BTL OP SCH ×3 (08:43→20:53)
[2022-07-22] MEDS: FLUTICASONE/VILANTEROL 100/25MCG 14 PUFFS/INHALER INH SCH ×2 (08:43→20:57)
[2022-07-22] MEDS: POTASSIUM CHLORIDE 20 MEQ/15 ML UDC PO SCH (08:43)
[2022-07-22] MEDS: BRIMONIDINE TARTRATE 0.2% 5ML OP SCH ×2 (08:43→20:54)
[2022-07-22] MEDS: SULFAMETHOXAZOLE/TRIMETHOPRIM DS 800/160MG TAB PO SCH (08:43)
[2022-07-22] MEDS: prednisoLONE acetate 1% OP SUSP 5 ML BTL OP SCH ×3 (08:43→20:56)
[2022-07-22] MEDS: METOPROLOL TARTRATE 25 MG TAB PO SCH ×2 (08:44→21:53)
[2022-07-22] MEDS: FUROSEMIDE 20 MG TAB PO SCH (08:44)
[2022-07-22] MEDS: buPROPion HCl 100 MG TABLET PO SCH ×2 (08:44→21:54)
[2022-07-22] MEDS: PANTOprazole 40 MG TAB PO SCH (08:44)
[2022-07-22] MEDS: MULTIVITAMIN TAB PO SCH (08:44)
[2022-07-22] MEDS: ATORVASTATIN 40 MG TAB PO SCH (08:44)
[2022-07-22] MEDS: GABAPENTIN 400 MG CAP PO SCH ×3 (08:44→21:54)
[2022-07-22] MEDS: FERROUS SULFATE 325 MG TAB PO SCH (08:44)
[2022-07-22] MEDS: DOCUSATE SODIUM 100 MG CAP PO SCH ×2 (08:44→21:53)
[2022-07-22] MEDS: ASPIRIN 81 MG ECTAB PO SCH (08:44)
[2022-07-22] MEDS: SENNA 8.6 MG TAB PO SCH ×2 (08:45→21:55)
[2022-07-22] MEDS: LATANOPROST 0.005% OP SOLN 2.5 ML BTL OP SCH (20:57)
[2022-07-22] MEDS: TAMSULOSIN HCL 0.4 MG CAP PO SCH (21:54)
[2022-07-22] MEDS: traZODone HCL 50 MG TAB PO SCH (21:54)
[2022-07-23] MEDS: ACETAMINOPHEN 500 MG TAB PO SCH ×3 (05:54→22:37)
[2022-07-23] MEDS: oxyCODONE HCL IR 5 MG TAB (IMMEDIATE RELEASE) PO PRN ×4 (05:55→19:43)
[2022-07-23] MEDS: PANTOprazole 40 MG TAB PO SCH (08:30)
[2022-07-23] MEDS: FLUTICASONE/VILANTEROL 100/25MCG 14 PUFFS/INHALER INH SCH ×2 (08:30→20:11)
[2022-07-23] MEDS: DOCUSATE SODIUM 100 MG CAP PO SCH ×2 (08:31→20:11)
[2022-07-23] MEDS: MULTIVITAMIN TAB PO SCH (08:31)
[2022-07-23] MEDS: FERROUS SULFATE 325 MG TAB PO SCH (08:31)
[2022-07-23] MEDS: POTASSIUM CHLORIDE 20 MEQ/15 ML UDC PO SCH (08:31)
[2022-07-23] MEDS: SENNA 8.6 MG TAB PO SCH ×2 (08:31→20:11)
[2022-07-23] MEDS: ATORVASTATIN 40 MG TAB PO SCH (08:31)
[2022-07-23] MEDS: buPROPion HCl 100 MG TABLET PO SCH ×2 (08:31→20:10)
[2022-07-23] MEDS: ASPIRIN 81 MG ECTAB PO SCH (08:32)
[2022-07-23] MEDS: GABAPENTIN 400 MG CAP PO SCH ×3 (08:32→20:11)
[2022-07-23] MEDS: METOPROLOL TARTRATE 25 MG TAB PO SCH ×2 (08:32→20:11)
[2022-07-23] MEDS: FUROSEMIDE 20 MG TAB PO SCH (08:32)
[2022-07-23] MEDS: BRIMONIDINE TARTRATE 0.2% 5ML OP SCH ×2 (08:33→20:14)
[2022-07-23] MEDS: DORZOLAMIDE/TIMOLOL 22.3/6.8MG/ML 10 ML BTL OP SCH ×3 (08:33→20:14)
[2022-07-23] MEDS: prednisoLONE acetate 1% OP SUSP 5 ML BTL OP SCH ×3 (08:33→20:15)
--- NOTE | 2022-07-23 08:37 | Progress Notes ---
DATE OF SERVICE: 07/23/2022. SUBJECTIVE: A 71-year-old gentleman now postop day 3 from a right reverse shoulder arthroplasty. He is doing well. He describes a moderate amount of pain, but seems manageable. He looks comfortable. Just waiting for placement. OBJECTIVE: VITAL SIGNS: Temperature 36.4. Vital signs are stable. GENERAL: Shows a pleasant, elderly male. He is sitting up in bed and looks completely comfortable. EXTREMITIES: Examination of the right shoulder reveals the dressing to be in place. Shoulder is wel l aligned. Sling is in place. He can again extend and flex his wrist and his fingers appropriately. He is neurologically intact. ASSESSMENT: A 71-year-old gentleman, now postop day 3 from right reverse shoulder arthroplasty. Ort hopedically doing well. Just waiting for placement. PLAN: 1. PT/OT. A right reverse shoulder arthroplasty protocol. 2. Pain control, doing well with current pain regimen. 3. Wound care. Routine wound care, right shoulder. 4. Disposition. He is orthopedically okay for discharge any time if bed available. Just waiting fo r placement. Job ID: [id number]
[2022-07-23] MEDS: traZODone HCL 50 MG TAB PO SCH (20:11)
[2022-07-23] MEDS: TAMSULOSIN HCL 0.4 MG CAP PO SCH (20:11)
[2022-07-23] MEDS: LATANOPROST 0.005% OP SOLN 2.5 ML BTL OP SCH (20:15)
[2022-07-24] MEDS: oxyCODONE HCL IR 5 MG TAB (IMMEDIATE RELEASE) PO PRN ×3 (01:33→21:05)
[2022-07-24] MEDS: ACETAMINOPHEN 500 MG TAB PO SCH ×3 (05:33→21:01)
[2022-07-24] MEDS: DOCUSATE SODIUM 100 MG CAP PO SCH ×2 (08:40→20:59)
[2022-07-24] MEDS: PANTOprazole 40 MG TAB PO SCH (08:41)
[2022-07-24] MEDS: METOPROLOL TARTRATE 25 MG TAB PO SCH ×2 (08:41→21:01)
[2022-07-24] MEDS: GABAPENTIN 400 MG CAP PO SCH ×3 (08:41→21:00)
[2022-07-24] MEDS: MULTIVITAMIN TAB PO SCH (08:41)
[2022-07-24] MEDS: ASPIRIN 81 MG ECTAB PO SCH (08:41)
[2022-07-24] MEDS: ATORVASTATIN 40 MG TAB PO SCH (08:41)
[2022-07-24] MEDS: buPROPion HCl 100 MG TABLET PO SCH ×2 (08:41→21:00)
[2022-07-24] MEDS: FUROSEMIDE 20 MG TAB PO SCH (08:42)
[2022-07-24] MEDS: FERROUS SULFATE 325 MG TAB PO SCH (08:42)
[2022-07-24] MEDS: DORZOLAMIDE/TIMOLOL 22.3/6.8MG/ML 10 ML BTL OP SCH ×3 (08:42→20:57)
[2022-07-24] MEDS: POTASSIUM CHLORIDE 20 MEQ/15 ML UDC PO SCH (08:43)
[2022-07-24] MEDS: FLUTICASONE/VILANTEROL 100/25MCG 14 PUFFS/INHALER INH SCH ×2 (08:43→21:02)
[2022-07-24] MEDS: BRIMONIDINE TARTRATE 0.2% 5ML OP SCH ×2 (08:43→20:57)
[2022-07-24] MEDS: SENNA 8.6 MG TAB PO SCH ×2 (08:44→21:00)
[2022-07-24] MEDS: prednisoLONE acetate 1% OP SUSP 5 ML BTL OP SCH ×3 (08:44→20:58)
--- NOTE | 2022-07-24 08:58 | Progress Notes ---
DATE OF SERVICE: 07/24/2022. SUBJECTIVE: A 71-year-old gentleman now 4 days out from a right reverse total shoulder arthroplasty. He is doing relatively well. He complains of quite a bit of pain, but looks pretty comfortable. N o other complaints. OBJECTIVE: VITAL SIGNS: Temperature 37.5. Vital signs are stable. GENERAL: Shows a pleasant, elderly male. He is sitting up in bed, looks pretty comfortable. EXTREMITIES: Examination of the right shoulder reveals a sling to be in place. The dressings clean, dry and intact. Minimal swelling. He is neurologically intact. ASSESSMENT: A 71-year-old male with multiple medical comorbidities, now 4 days out from a reverse sh oulder arthroplasty, doing okay. Just waiting for placement. PLAN: 1. DVT prophylaxis includes thigh-high TEDs, SCDs. 2. Pain control, doing okay with current pain regimen. 3. Multiple medical issues. Multiple medical issues seem to be under reasonable control. Continue current treatment. 4. Disposition. He is orthopedically okay for discharge. Just waiting for bed availability. Discha rge when bed available. Job ID: [id number]
[2022-07-24] MEDS: traZODone HCL 50 MG TAB PO SCH (20:59)
[2022-07-24] MEDS: LATANOPROST 0.005% OP SOLN 2.5 ML BTL OP SCH (20:59)
[2022-07-24] MEDS: TAMSULOSIN HCL 0.4 MG CAP PO SCH (21:00)
[2022-07-25] MEDS: ACETAMINOPHEN 500 MG TAB PO SCH ×3 (05:17→21:23)
[2022-07-25] MEDS: oxyCODONE HCL IR 5 MG TAB (IMMEDIATE RELEASE) PO PRN ×3 (05:17→21:26)
--- NOTE | 2022-07-25 08:13 | Orthopedic Progress Note ---
Date of Service July 25, 2022 Assessment & Plan (1) Status post reverse total replacement of right shoulder: Overall is doing fairly well. He is not having too much pain in the shoulder. He will be seen by physical therapy again today for ambulation and range of motion exercises. He will remain in the hospital today awaiting rehab placement. We will hopefully discharge him to rehab tomorrow. Eran Amin was seen and examined at bedside this morning. Overall he is doing okay. He is having a little bit of soreness in the shoulder but not too bad. He was able to get some sleep last night. Has no complaints.. Review of Systems All systems reviewed & are unremarkable except as noted in HPI & below. Physical Exam On physical examination of right shoulder, he is wearing his sling as instructed. His dressing is clean and dry. He is neurovascular intact.. Results & Data Results & Data Laboratory Results . Diagnostic Findings . PG Care Time/CCT Total # of Minutes Spent Total Time Spent with Patient: Total time spent is greater than 50% in coordination of care (as documented) at patient's floor/unit and/or counseling patient: Coding Level of Care Code 50157 Post Operative Follow-Up Diagnoses Status post reverse total replacement of right shoulder Z96.611
[2022-07-25] MEDS: METOPROLOL TARTRATE 25 MG TAB PO SCH ×2 (08:32→20:28)
[2022-07-25] MEDS: MULTIVITAMIN TAB PO SCH (08:33)
[2022-07-25] MEDS: PANTOprazole 40 MG TAB PO SCH (08:33)
[2022-07-25] MEDS: GABAPENTIN 400 MG CAP PO SCH ×3 (08:33→20:23)
[2022-07-25] MEDS: buPROPion HCl 100 MG TABLET PO SCH ×2 (08:33→20:26)
[2022-07-25] MEDS: FERROUS SULFATE 325 MG TAB PO SCH (08:33)
[2022-07-25] MEDS: POTASSIUM CHLORIDE 20 MEQ/15 ML UDC PO SCH (08:33)
[2022-07-25] MEDS: DOCUSATE SODIUM 100 MG CAP PO SCH ×2 (08:33→20:26)
[2022-07-25] MEDS: ASPIRIN 81 MG ECTAB PO SCH (08:33)
[2022-07-25] MEDS: FUROSEMIDE 20 MG TAB PO SCH (08:33)
[2022-07-25] MEDS: SENNA 8.6 MG TAB PO SCH ×2 (08:33→20:26)
[2022-07-25] MEDS: ATORVASTATIN 40 MG TAB PO SCH (08:33)
[2022-07-25] MEDS: BRIMONIDINE TARTRATE 0.2% 5ML OP SCH ×2 (08:34→20:23)
[2022-07-25] MEDS: prednisoLONE acetate 1% OP SUSP 5 ML BTL OP SCH ×3 (08:34→20:27)
[2022-07-25] MEDS: DORZOLAMIDE/TIMOLOL 22.3/6.8MG/ML 10 ML BTL OP SCH ×3 (08:34→20:27)
[2022-07-25] MEDS: FLUTICASONE/VILANTEROL 100/25MCG 14 PUFFS/INHALER INH SCH ×2 (08:37→20:27)
[2022-07-25] MEDS: TAMSULOSIN HCL 0.4 MG CAP PO SCH (20:25)
[2022-07-25] MEDS: traZODone HCL 50 MG TAB PO SCH (20:27)
[2022-07-25] MEDS: LATANOPROST 0.005% OP SOLN 2.5 ML BTL OP SCH (20:28)
[2022-07-26] MEDS: oxyCODONE HCL IR 5 MG TAB (IMMEDIATE RELEASE) PO PRN ×4 (03:18→20:11)
[2022-07-26] MEDS: ACETAMINOPHEN 500 MG TAB PO SCH ×3 (05:34→21:03)
--- NOTE | 2022-07-26 07:03 | Orthopedic Progress Note ---
Date of Service July 26, 2022 Assessment & Plan (1) Status post reverse total replacement of right shoulder: Overall he is doing very well. Is not having much pain in the right shoulder. He will be seen by physical therapy today for ambulation and range of motion exercises. He can be discharged to rehab facility today if a bed becomes available. He will follow-up with orthopedics 2 weeks from the day of surgery. Eran Amin was seen and examined at bedside this morning. Overall he is doing fairly well. He is not having much pain in the right shoulder. He is currently awaiting discharge to rehab facility. He has no complaints.. Review of Systems All systems reviewed & are unremarkable except as noted in HPI & below. Physical Exam On physical examination the right shoulder, he is wearing his sling as instructed. His dressing is clean and dry. He is neurovascular intact.. Results & Data Results & Data Laboratory Results . Diagnostic Findings . PG Care Time/CCT Total # of Minutes Spent Total Time Spent with Patient: Total time spent is greater than 50% in coordination of care (as documented) at patient's floor/unit and/or counseling patient: Coding Level of Care Code 72679 Post Operative Follow-Up Diagnoses Status post reverse total replacement of right shoulder Z96.611
[2022-07-26] MEDS: PANTOprazole 40 MG TAB PO SCH (08:14)
[2022-07-26] MEDS: SENNA 8.6 MG TAB PO SCH ×2 (08:15→20:06)
[2022-07-26] MEDS: MULTIVITAMIN TAB PO SCH (08:16)
[2022-07-26] MEDS: DOCUSATE SODIUM 100 MG CAP PO SCH ×2 (08:16→20:07)
[2022-07-26] MEDS: FERROUS SULFATE 325 MG TAB PO SCH (08:18)
[2022-07-26] MEDS: FUROSEMIDE 20 MG TAB PO SCH (08:19)
[2022-07-26] MEDS: buPROPion HCl 100 MG TABLET PO SCH ×2 (08:19→20:06)
[2022-07-26] MEDS: METOPROLOL TARTRATE 25 MG TAB PO SCH ×2 (08:19→20:07)
[2022-07-26] MEDS: prednisoLONE acetate 1% OP SUSP 5 ML BTL OP SCH ×3 (08:20→20:08)
[2022-07-26] MEDS: GABAPENTIN 400 MG CAP PO SCH ×3 (08:20→20:07)
[2022-07-26] MEDS: ATORVASTATIN 40 MG TAB PO SCH (08:20)
[2022-07-26] MEDS: ASPIRIN 81 MG ECTAB PO SCH (08:20)
[2022-07-26] MEDS: BRIMONIDINE TARTRATE 0.2% 5ML OP SCH ×2 (08:21→20:07)
[2022-07-26] MEDS: POTASSIUM CHLORIDE 20 MEQ/15 ML UDC PO SCH (08:21)
[2022-07-26] MEDS: FLUTICASONE/VILANTEROL 100/25MCG 14 PUFFS/INHALER INH SCH ×2 (08:21→20:07)
[2022-07-26] MEDS: DORZOLAMIDE/TIMOLOL 22.3/6.8MG/ML 10 ML BTL OP SCH ×3 (08:22→20:08)
--- NOTE | 2022-07-26 18:01 | Operative Report ---
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 A tenodesis was opted. This was a separate and distinct portion of the procedure. For these reasons, a CPT code modifier 59 will be added to this case. Implants used: I used a [employer] Comprehensive reverse total shoulder arthroplasty system with a size 16 press fit micro humeral stem, a +6 offset humeral tray and a standard humeral bearing, a 25 mm small baseplate with a 6.5 mm central screw and superio r and inferior locking screws, and a size 40 mm eccentric glenosphere. Brennan arrived at [facility] for the above procedure. He was seen in the preoperative holding area and the operative extremity was identified and signed. He was given a preoperative antibiotic, TXA, and an interscalene nerve block. He was taken back to the operating room, laid on table in supine position, and put under general anesthesia. He was then put into the beachchair position. The shoulder was then prepped and draped in sterile fashion. A timeout was done and the patient and the operative extremity was properly identified. A deltopectoral approach was used. Dissection was taken down through the fascia and the deltoid was retracted laterally and the conjoined tendon was retracted medially. The anterior shoulder was exposed. The biceps groove was opened up and the biceps tendon was examined extensively. The biceps tendon demonstrated enlargement and inflammatory changes consistent with longstanding inflammation in the context of osteoarthritis and cuff arthropathy. The long head of the biceps tendon was then tenodesed to the upper border of the pectoralis major. This was a separate and distinct portion of the procedure. The subscapularis was then directly released off the lesser tuberosity with a peel technique. The inferior capsule was released and the humeral head was dislocated. A canal finding reamer was sent down the center of the humeral canal. Sequential reaming up to a size 16 reamer was done. Off that reamer, a proximal humeral resection guide was placed. The proximal humerus was resected at 135 of inclination and 25 of retroversion. Osteophytes were then removed and the glenoid was exposed. Time was spent doing a complete capsular and labral release. The glenoid guide was then placed in the inferior aspect of the glenoid. A 3.2 mm Steinmann pin was then placed into the glenoid vault at 10 of inclination. The glenoid baseplate was then reamed. The final size 25 mm small baseplate was then impacted in the place. A 6.5 mm central screw was then placed followed by superior and inferior locking screws. A 40 mm eccentric glenosphere was then impacted into place. Surrounding soft tissues were then injected with 100 cc an orthopedic pain control cocktail. The proximal humerus was then exposed. Sequential broaching of the humerus up to a size 16 broach was done. Off that broach a +6 offset humeral tray was trialed. The shoulder was then reduced, brought through a full range of motion, and felt to be stable. The shoulder was then dislocated and the broach was removed. The final size 16 micro press-fit humeral stem was then impacted into place. A standard humeral bearing was then snapped onto a +6 offset humeral tray. The humeral tray was then impacted onto the humeral stem. The shoulder was once again reduced, brought through a full range of motion, and felt to be stable. The subscapularis was then tenodesed back to the lesser tuberosity with transosseous FiberWire sutures and side to side sutures with the arm in 45 of external rotation. A dilute betadyne lavage was then done for 3 minutes. The joint was then irrigated with normal saline solution. Hemostasis was obtained. The interval was closed with 2-0 Vicryl suture. The skin was then closed with 2-0 Vicryl and babatunde. A Silverlon dressing was placed and the arm was rested in a regular arm sling. He was then extubated and transferred to a hospital bed. He taken to the postanesthesia care unit in stable condition. He tolerated the procedure well. Yoel Reyes PA-C, was present for the entire procedure. He was critical for patient positioning, prepping, draping, retraction exposure, wound closure and application of sterile dressing. I attest to the content of the Intraoperative Record and any orders documented therein. Any exceptions are noted below.
[2022-07-26] MEDS: TAMSULOSIN HCL 0.4 MG CAP PO SCH (20:07)
[2022-07-26] MEDS: traZODone HCL 50 MG TAB PO SCH (20:07)
[2022-07-26] MEDS: LATANOPROST 0.005% OP SOLN 2.5 ML BTL OP SCH (20:08)
[2022-07-27] MEDS: oxyCODONE HCL IR 5 MG TAB (IMMEDIATE RELEASE) PO PRN ×5 (01:19→21:02)
[2022-07-27] MEDS: ACETAMINOPHEN 500 MG TAB PO SCH ×3 (05:09→21:02)
[2022-07-27] MEDS: FLUTICASONE/VILANTEROL 100/25MCG 14 PUFFS/INHALER INH SCH ×2 (08:55→20:55)
[2022-07-27] MEDS: DORZOLAMIDE/TIMOLOL 22.3/6.8MG/ML 10 ML BTL OP SCH ×3 (08:55→20:54)
[2022-07-27] MEDS: POTASSIUM CHLORIDE 20 MEQ/15 ML UDC PO SCH (08:55)
[2022-07-27] MEDS: prednisoLONE acetate 1% OP SUSP 5 ML BTL OP SCH ×3 (08:56→20:54)
[2022-07-27] MEDS: ASPIRIN 81 MG ECTAB PO SCH (08:56)
[2022-07-27] MEDS: BRIMONIDINE TARTRATE 0.2% 5ML OP SCH ×2 (08:56→20:54)
[2022-07-27] MEDS: GABAPENTIN 400 MG CAP PO SCH ×3 (08:57→20:55)
[2022-07-27] MEDS: FUROSEMIDE 20 MG TAB PO SCH (08:57)
[2022-07-27] MEDS: buPROPion HCl 100 MG TABLET PO SCH ×2 (08:57→20:55)
[2022-07-27] MEDS: FERROUS SULFATE 325 MG TAB PO SCH (08:57)
[2022-07-27] MEDS: DOCUSATE SODIUM 100 MG CAP PO SCH ×3 (08:57→20:55)
[2022-07-27] MEDS: ATORVASTATIN 40 MG TAB PO SCH (08:57)
[2022-07-27] MEDS: MULTIVITAMIN TAB PO SCH (08:58)
[2022-07-27] MEDS: PANTOprazole 40 MG TAB PO SCH (08:58)
[2022-07-27] MEDS: METOPROLOL TARTRATE 25 MG TAB PO SCH ×2 (08:58→20:55)
[2022-07-27] MEDS: SENNA 8.6 MG TAB PO SCH ×3 (08:58→20:55)
[2022-07-27] MEDS: TAMSULOSIN HCL 0.4 MG CAP PO SCH (20:55)
[2022-07-27] MEDS: traZODone HCL 50 MG TAB PO SCH (20:55)
[2022-07-27] MEDS: LATANOPROST 0.005% OP SOLN 2.5 ML BTL OP SCH (20:56)
[2022-07-28] MEDS ORDERED: metOLazone 5 MG TABLET PO ONE ×2 (01:17→09:45)
[2022-07-28] MEDS ORDERED: FUROSEMIDE 40 MG/4 ML VIAL IV ONE ×4 (01:17→08:42)
--- NOTE | 2022-07-28 01:29 | Hospitalist Consultation ---
Date of Consultation July 28, 2022 Assessment & Plan (1) Acute respiratory failure with hypoxia: This is a 71-year-old male with a history of HFpEF, bilateral pleural effusions, atrial fibrillation, coronary artery disease, peripheral artery disease, hyperlipidemia, anemia, pulmonary hypertension who presented to [facility] for R shoulder replacement on 07/26 and subsequently developed an increasing oxygen requirement, which is primarily suspected to be secondary to pulmonary edema -- though work-up is ongoing. Acute Hypoxic Respiratory Failure - Patient with increasing oxygen requirements through the AM of 07/28 from baseline of RA on admission - With known bilateral pleural effusions secondary to CHF, followed by Pulmonary -- had 500cc transudative fluid removed 06/30 - Last TTE 10/2021 revealing: normal LVEF with mild cLVH, LVEF 65-70% - CXR demonstrating increased opacity in the R lung hays, possibly pulmonary edema ; ECG with sinus tachycardia - Check CBC, CMP, BNP, VBG, PCT, troponin - Primary suspicion based on clinical appearance is acute HFpEF / pulmonary edema / worsening of known pleural effusions. VTE a possibility but will await labs; on ASA for post-surgical PPX. PNA is also a possibility - Give Lasix 40mg IV x 1 now and schedule additional dose in the AM with BMP recheck at noon for consideration of further doses - Start on BiPAP and ween as tolerated - Low Na diet with 2000cc fluid restriction for now - Daily weights, I&Os per protocol - Additional measures once work-up returns (2) Bilateral pleural effusion: Bilateral Pleural Effusion - As above - known bilateral pleural effusions, visualized by US and CXR in early June - s/p thoracentesis with 500cc fluid removal on 06/30/22 on the RIGHT side - Was hospitalized in January 2021 for acute CHF for the same -- had thoracentesis at this time too - CXR as above - Lasix and CHF measures as above - Follow and consult pulmonary if indicated for in-house thoracentesis. (3) CAD (coronary artery disease): CAD/PAD/HLD - Catheterization during January 2021 admiss[facility] acute CHF -- demonstrated triple-vessel CAD that is currently being managed medically - Continue ASA, statin, and metoprolol - Follows with [facility] - last visit 03/2022 (4) Pulmonary hypertension: Pulmonary HTN - History noted. Not appreciated on last TTE in 10/2021 (5) Anemia: - Chronic iron deficiency anemia with baseline around 9-10 - CBC pending as above - Continue iron supplementation in the interim (6) Status post reverse total replacement of right shoulder: Total Shoulder Arthroscopy - Per orthopedic service Supervising Physician Co-Signing Physician Notes Patient seen and examined. Chart reviewed. History above entered by or Plan as above -Lasix given - 40mg IV -BiPAP for now and PRN -Albuterol PRN History of Present Illness Attending Physician: Yoel Ding, History of Present Illness This is a 71-year-old male with a history of HFpEF, bilateral pleural effusions, atrial fibrillation, coronary artery disease, peripheral artery disease, hyperlipidemia, anemia, pulmonary hypertension who presented to [facility] for R shoulder replacement on 07/26; hospitalist team was asked to see the patient due to increasing oxygen demand through 1128 into the cuff runner hours of 07/28. When he presented to the hospital, Brennan was on room air saturating in the low 90s. Beginning on 1128, he did require a 2 to 3 L oxygen requirement to maintain saturations above 90%. Throughout the evening of 1128, he progressively required up to 4 L to maintain saturations between 85 and 90%. Patient reports coughing spells, occasionally productive for yellow sputum. He has some orthopnea as well. He denies chest pain, palpitations, nausea, vomiting. Of note, patient is followed by [facility] physician group pulmonary clinic for his pleural effusions; he has undergone thoracenteses in the past for these. On 06/29, patient was seen by pulmonology for preoperative clearance; ultrasound was sent at that time which showed a moderate right-sided pleural e ffusion. He underwent drainage of this, which yielded about 500 cc of clear pleural fluid. Characteristics of the pleural fluid are consistent with a transudative process. Medications reviewed and include albuterol, aspirin, atorvastatin, bupropion, Breo Ellipta, Lasix 20 mg every morning, gabapentin, Percocet, methocarbamol, metolazone 5 mg as needed, metoprolol tartrate 25 mg twice daily. Allergies Allergy/AdvReac Type Severity Reaction Status Date / Time No Known Allergies Allergy Unknown Verified 07/20/22 10:41 Home Medications Medication Instructions Recorded Confirmed Type tamsulosin 0.4 mg capsule (Flomax) 0.4 mg PO QPM 01/10/19 07/20/22 History pantoprazole 40 mg tablet,delayed 40 mg PO QAM 08/01/20 07/07/22 History release multivitamin 1 tab PO QAM 10/05/20 07/20/22 History omega 4-iia-ltx-fish oil 1,200 mg 1 cap PO QAM 10/05/20 07/07/22 History (144 mg-216 mg) capsule (Fish Oil) trazodone 150 mg tablet 150 mg PO HS 10/05/20 07/20/22 History cholecalciferol (vitamin D3) 50 50 mcg PO QAM 10/16/20 07/20/22 History mcg (2,000 unit) capsule lidocaine 5 % topical patch 1 patch topical DAILY PRN Pain 10/16/20 07/20/22 History (Lidoderm) metoprolol tartrate 50 mg tablet 25 mg PO BID 01/16/21 07/20/22 History glucosamine-chondroitin 250 mg-200 1 tab PO BID 07/03/21 07/07/22 History mg tablet (Osteo Bi-Flex) atorvastatin 40 mg tablet 40 mg PO QAM 07/29/21 07/20/22 History fluticasone furoate 100 1 inh inhalation BID 07/29/21 07/20/22 History mcg-vilanterol 25 mcg/dose inhalation powder (Breo Ellipta) ferrous sulfate 325 mg (65 mg 325 mg PO QAM 11/09/21 07/20/22 History iron) tablet brimonidine 0.2 % eye drops 1 drp ophthalmic (eye) BID #1 btl 11/26/21 07/20/22 Rx dorzolamide 22.3 mg-timolol 6.8 1 drp ophthalmic (eye) TID #1 btl 11/26/21 07/20/22 Rx mg/mL eye drops latanoprost 0.005 % eye drops 1 drp ophthalmic (eye) HS #1 btl 11/26/21 07/20/22 Rx prednisolone acetate 1 % eye 1 drp ophthalmic (eye) TID #1 btl 11/26/21 07/20/22 Rx drops,suspension sulfamethoxazole 800 1 tab PO Q12H MRSA wound Left Hip 11/26/21 07/07/22 Rx mg-trimethoprim 160 mg tablet #0 tabs (Bactrim DS) food supplemt, lactose-reduced 1 ea PO TID 12/16/21 07/20/22 History 0.05 gram-1.5 kcal/mL oral liquid (Ensure Plus) gauze bandage 4" X 4" (Curad Gauze 12/16/21 06/24/22 History Pad) povidone-iodine 10 % topical 1 applic topical DAILY 12/16/21 07/20/22 History solution HEEL LIFTS #1 ea 12/22/21 06/24/22 Rx albuterol sulfate 90 mcg/actuation 2 puff inhalation BID PRN 03/08/22 07/20/22 History aerosol inhaler Shortness Of Breath Or Wheezing gabapentin 400 mg capsule 400 mg PO TID #270 caps 03/17/22 07/20/22 Rx bupropion HCl 100 mg tablet 200 mg PO BID 05/25/22 07/20/22 History furosemide 40 mg tablet (Lasix) 20 mg PO QAM 05/25/22 07/20/22 History methocarbamol 500 mg tablet 500 mg PO TID PRN MUSCLE RELAXANT 05/25/22 07/20/22 History potassium chloride 20 mEq/15 mL See Rx Instructions .Route .COMPLEX 05/25/22 History oral liquid sennosides 8.6 mg tablet 8.6 mg PO DAILY 05/25/22 07/20/22 History metolazone 5 mg tablet 5 mg PO DAILY PRN edema #30 tabs 05/26/22 07/20/22 Rx hydrocodone 5 mg-acetaminophen 325 1 tab PO TID PRN Pain 06/18/22 07/20/22 History mg tablet aspirin 81 mg tablet 81 mg PO DAILY 07/02/22 07/20/22 History oxycodone-acetaminophen 5 mg-325 1 tab PO Q6H PRN pain #60 tabs 07/21/22 Rx mg tablet (Percocet) terbinafine HCl 250 mg tablet 250 mg PO DAILY #30 tabs 07/26/22 Rx Patient History Medical History Anemia Anxiety Stable/controlled per pt [facility] Atrial flutter, paroxysmal Per cardio visit 04/21/22, "We remain uncertain as to his atrial fibrillation burden and he continues to prefer a conservative approach meaning no further monitoring and no anticoagulation." Chronic back pain Chronic hypoxemic respiratory failure Follows with [facility], previously on supplementation oxygen (has not had for several months) Chronic osteomyelitis of hip Bactrim ppx Chronic ulcer of great toe Follows with [facility] COVID-19 virus infection 08/2020 > Covid PNA, acute respiratory failure with hypoxia requiring BiPAP, also hospitalized 09/2020 with B/L pleural effusion and differential including potential correlation to recent COVID illness Degeneration of cervical intervertebral disc Depression Stable/controlled per pt Follows with [facility] Glaucoma Hearing deficit Hearing aid (left) Heart failure Diastolic Follows with ([facility]/Dr. Sheffield) History of blood transfusion [id number] (with multiple hip surgeries) Hx MRSA infection Left hip since 2009, Chronic/long-term bactrim daily Hyperlipidemia Hypokalemia Leg length discrepancy RLE > LLE s/p multiple left hip revisions (per patient, missing hip joint) due to complications from hip surgery/revisions/MRSA infection- on chronic preventative Bactrim-- uses shoe with elevated heel/crutches Osteoarthritis Osteoporosis Peptic ulcer disease 2018 Pleural effusion Recurrent (most recent need for drainage several months ago) Pneumonia Recent hospitalization 04/2022 PNA/pleural effusion ([facility]) Pulmonary hypertension Restless leg syndrome Transient ischemic attack (TIA) ~2014 Surgical History H/O eye surgery 2 DRAINAGE TUBES RT/LEFT EYES FOR GLAUCOMA currently in place Retinal lift and cadaver placement week of 08/03/2021 in [place] History of bilateral cataract extraction History of cardiac cath 01/2021 [facility]: "Medical management of moderate to severe CAD" NO STENTS History of colonoscopy History of esophagogastroduodenoscopy (EGD) History of hip surgery LEFT HIP SURGERY/REVISIONS (TOTAL OF 9 SURGERIES) History of laminectomy L3-L5 laminectomy: 05/12/15: Grade view 1, MAC#3, ETT 8.0 (atraumatic DL x 1) at [facility] History of thoracentesis 04/2022 [facility] History of tonsillectomy and adenoidectomy History of tooth extraction Status post reverse total arthroplasty of left shoulder 07/03/2019: Grade 1 view, MAC#3, ETT#8.0, atraumatic x 1 + PNB. Family History Father , about age 60 Cerebral aneurysm Mother No pertinent past medical history Grandmother (Maternal) Myocardial infarction Denies family history of Ovarian cancer Prostate cancer Crohn's disease Breast cancer Colorectal cancer Ulcerative colitis Social History Smoking Status: Former smoker Tobacco Type: Smokeless Tobacco (Dip or Chew) Age Started Using Tobacco: 15; packs per day: 1.5; Cigarettes Per Day: 1 ppd over 20yrs ago; Smoking End Date: Quit 20 years ago (hx 1 PPD); Second Hand Exposure: No; Do You Dip or Chew Tobacco: No (Quit 6 months ago); Tobacco Cessation Education Requested by Patient: No Hx Alcohol Use: No Hx Substance Use: Yes Last Used Substance Other:: hx medical marijuana card- does not currently use- last use 1 yr ago Preferred Language: Macedonian Communication Ability: Effective Visual Impairment: No Limitations Hearing Ability: Normal Shell Fisherman Required: No Beliefs That Will Affect Care: None marital status: Current Living Situation: Spouse current occupational status: retired 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 [employer] How many Children do You have: 2 How many Children do You have Comment: 1 is Other Information That Helps Us Care for You: No Feels Safe at Home: Yes Safety Concerns: Feels Safe At This Time Childhood Exposure to Second-Hand Smoke: Yes caffeine: Yes Dental Care, Regularly: No Physical Activity Frequency: Does not Exercise Physical Activity Frequency Comment: Rehab twice a week Seatbelt Use: sometimes Sunscreen Use: No Assistive Devices: Crutches Review of Systems Review of Systems: All systems reviewed & are unremarkable except as noted in HPI & below Physical Exam Physical Exam: General: patient resting comfortably, NAD, non-toxic in appearance, AA&O x 4 Skin: warm, dry, intact, no rashes or lesions HEENT: NC/AT, PERRL, EOMI, anicteric sclera, conjunctiva without injection, external ear normal to inspection and nontender, nares patent, moist mucus membranes, dentition intact, no oropharyngeal lesions, neck supple, trachea midline, no LAD, no thyromegaly, no JVD Heart: +S1/S2, regular, tachycardic, no m/r/g Lungs: equal air entry bilaterally, + crackles in bilateral lungs with diminished breath sounds in bases Abd: +BS, soft, NT/ND, no masses/organomegaly/ascites Ext: warm, 2+ pulses in UE/LE bilaterally, no clubbing/cyanosis or edema, RUE in sling, gangrene present on toes of bilateral feet Neuro: nonfocal, patient AA&O x 4, speech intact, no facial droop, moving all extremities on command with equal strength 5/5 Results & Data Results & Data ([facility]) Vital Signs (Past 12 Hours) Vital Signs Temp Pulse Pulse Resp BP Pulse Ox O2 Del Method 07/28/22 01:01 139/85 07/27/22 23:59 36.6 C 89 22 90 Nasal Cannula 07/27/22 20:00 Nasal Cannula 07/27/22 20:58 36.8 C 88 18 136/80 92 Nasal Cannula 07/27/22 18:24 92 H 18 129/82 93 Nasal Cannula 07/27/22 18:19 Nasal Cannula 07/27/22 14:58 37.2 C 89 16 134/78 94 Nasal Cannula O2 Flow Rate 07/28/22 01:01 07/27/22 23:59 4 07/27/22 20:00 3 07/27/22 20:58 2 07/27/22 18:24 3 07/27/22 18:19 3 07/27/22 14:58 2 Laboratory Results Laboratory Results WBC 10.24 K/ul (4.8-10.8) 07/28/22 01:22 RBC 3.53 M/uL (4.63-6.08) L 07/28/22 01:22 Hgb 8.5 g/dl (14.0-18.0) L 07/28/22 01:22 Hct 28.3 % (40.1-51.0) L 07/28/22 01:22 MCV 80.2 fL (80.0-100.0) 07/28/22 01:22 MCH 24.1 pg (25.0-34.0) L 07/28/22 01:22 MCHC 30.0 g/dL (32.0-36.0) L 07/28/22 01:22 RDW Std Deviation 51.8 fL (36.4-46.3) H 07/28/22 01: RDW Coeff of Timbo 17.8 % (11.5-14.5) H 07/28/22 01: Plt Count 438 K/uL (130-400) H 07/28/22 01:22 MPV 8.5 fL (9.4-12.4) L 07/28/22 01: Immature Gran % (Auto) 0.5 % 07/28/22 01: Neut % (Auto) 76.4 % 07/28/22 01:22 Lymph % (Auto) 9.8 % 07/28/22 01: Mckinley % (Auto) 9.7 % 07/28/22 01: Eos % (Auto) 3.1 % 07/28/22 01: Baso % (Auto) 0.5 % 07/28/22 01: Neut # (Auto) 7.83 K/uL (1.4-6.5) H 07/28/22 01: Lymph # (Auto) 1.00 K/uL (1.2-3.4) L 07/28/22 01:22 Mckinley # (Auto) 0.99 K/uL (0.24-0.82) H 07/28/22 01:22 Eos # (Auto) 0.32 K/uL (0-0.50) 07/28/22 01: Baso # (Auto) 0.05 K/uL (0-0.2) 07/28/22 01: Immature Gran # (Auto) 0.05 K/uL (0.00-0.02) H 07/28/22 01:22 VBG pH 7.38 (7.36-7.41) 07/28/22 01: VBG pCO2 49 mmHg (38-50) 07/28/22 01: VBG pO2 30 mmHg 07/28/22 01: VBG HCO3 29 mmol/L 07/28/22 01: VBG O2 Saturation < 60.0 % 07/28/22 01:22 VBG Base Excess 3.0 mEq/L 07/28/22 01:22 Sodium 134 mmol/L (136-145) L 07/28/22 01: Potassium 4.5 mmol/L (3.5-5.1) 07/28/22 01:22 Chloride 101 mmol/L (98-107) 07/28/22 01:22 Carbon Dioxide 27 mmol/L (21-32) 07/28/22 01:22 Anion Gap 6 (3-11) 07/28/22 01:22 BUN 24 mg/dl (6-23) H 07/28/22 01:22 Creatinine 0.67 mg/dl (0.6-1.4) 07/28/22 01:22 Est Cr Clr Drug Dosing 104.8 ml/min 07/28/22 01:22 Est GFR ( Amer) 112.0 ml/min 07/28/22 01:22 Est GFR (Non-Af Amer) 96.7 ml/min 07/28/22 01:22 BUN/Creatinine Ratio 35.8 (10-20) H 07/28/22 01:22 Glucose 107 mg/dl (70-99(Fasting)) H 07/28/22 01:22 Calcium 8.7 mg/dl (8.5-10.1) 07/28/22 01:22 Troponin I High Sens 9.7 pg/ml (0-20) 07/28/22 01:22 B-Natriuretic Peptide 62 pg/ml (0-100) 07/28/22 01:22 SARS-CoV-2, RNA, NAAT NEGATIVE (NEGATIVE) 07/27/22 15:12 Impressions Shoulder X-Ray 07/20/22 14:13 XR shoulder RT min 2V routine CLINICAL HISTORY: Post shoulder surgery TECHNIQUE: 3 views of the right shoulder were obtained. Comparison: Comparison is made to right shoulder radiographs 05/24/2022 FINDINGS: Patient is status post shoulder arthroplasty with expected postsurgical changes including soft tissue swelling and subcutaneous emphysema. No periarticular jean-pierre ency or hardware fracture is seen. Interstitial thickening is seen and there is right cardiomediastinal shift. Nonspecific right lung base density is noted. IMPRESSION: 1. Expected postoperative appearance status post placement of shoulder arthroplasty. 2. Nonspecific right pleural-based density is noted. If further evaluation is desired, chest radiograph can be performed. ACT 112: Negative or not required by law. Electronically signed by: Greg Squires M.D. 07/20/2022 2:50 PM Resident Activity Tracking Resident Involvement: Resident Care Provided Care Provided: Adult Hospital Medicine (1) Anemia Anemia type: unspecified type Qualified Code(s): D64.9 - Anemia, unspecified
[2022-07-28 01:38] LABS: HCO3 VBG 29 mmol/L; Oxygen Saturation VBG < 60.0 %; PCO2 VBG 49 mmHg (38-50); PO2 VBG 30 mmHg; pH VBG 7.38 (7.36-7.41)
[2022-07-28 01:41] LABS: Basophils # (auto) 0.05 K/uL (0-0.2); Basophils % (auto) 0.5 %; Eosinophils # (auto) 0.32 K/uL (0-0.50); Eosinophils % (auto) 3.1 %; Hematocrit (blood only) 28.3 % (40.1-51.0); Hemoglobin 8.5 g/dl (14.0-18.0); Immature Granulocytes # (auto) 0.05 K/uL (0.00-0.02); Immature Granulocytes % (auto) 0.5 %; Lymphocytes % (auto) 9.8 %; Mean Corpuscular Hemoglobin 24.1 pg (25.0-34.0); Mean Corpuscular Volume 80.2 fL (80.0-100.0); Mean Platelet Volume 8.5 fL (9.4-12.4); Monocytes # (auto) 0.99 K/uL (0.24-0.82); Monocytes % (auto) 9.7 %; Neutrophils # (auto) 7.83 K/uL (1.4-6.5); Neutrophils % (auto) 76.4 %; Platelet Count 438 K/uL (130-400); RDW Coefficient of Variation 17.8 % (11.5-14.5); RDW Standard Deviation 51.8 fL (36.4-46.3); Red Blood Count 3.53 M/uL (4.63-6.08); White Blood Count 10.24 K/ul (4.8-10.8)
[2022-07-28 02:59] LABS: BUN Creatinine Ratio 35.8 (10-20); Calcium 8.7 mg/dl (8.5-10.1); Creatinine Clr Calc Pharmacy 104.8 ml/min; Est GFR (Non-African American) 96.7 ml/min; Potassium 4.5 mmol/L (3.5-5.1); Troponin I High Sensitivity 9.7 pg/ml (0-20)
[2022-07-28] MEDS ORDERED: ALBUTEROL 0.083% NEBU SOLN 3 ML VIAL NEB PRN (03:43)
--- NOTE | 2022-07-28 03:43 | Billing Data ---
Date of Service July 28, 2022 Coding Level of Care Code 49557 Inpt Consult Level 3
[2022-07-28] MEDS: ACETAMINOPHEN 500 MG TAB PO SCH ×3 (05:57→21:13)
[2022-07-28] MEDS: oxyCODONE HCL IR 5 MG TAB (IMMEDIATE RELEASE) PO PRN ×2 (06:37→14:23)
--- NOTE | 2022-07-28 07:10 | Orthopedic Progress Note ---
Date of Service July 28, 2022 Assessment & Plan (1) Status post reverse total replacement of right shoulder: His shoulder is doing well, but unfortunately, he has worsening hypoxia. The hospitalist has been consulted and is currently working him up. He may require a thoracentesis by pulmonology. He was given Lasix last evening. We will continue to follow him closely and hold off any discharge for now. Subjective Brennan was seen and examined at bedside this morning. He is doing well with regards to his right shoulder. He is still having some issues with hypoxia. His symptoms worsen last night. The hospitalist was consulted. He diagnosed him with pulmonary effusions and is currently doing a full work-up. Brennan was also seen yesterday afternoon. His shoulder was doing well at that time. He was scheduled for discharge later today. There was a delay in placing a progress note in the chart, however, he was seen yesterday afternoon with regards to his right shoulder.. Review of Systems All systems reviewed & are unremarkable except as noted in HPI & below. Physical Exam On physical examination the right shoulder, he is wearing his sling as instructed. He is neurovascular intact. He does not have too much pain with the right shoulder.. Results & Data Results & Data Laboratory Results . Diagnostic Findings . PG Care Time/CCT Total # of Minutes Spent Total Time Spent with Patient: Total time spent is greater than 50% in coordination of care (as documented) at patient's floor/unit and/or counseling patient: Coding Level of Care Code 16173 Post Operative Follow-Up Diagnoses Status post reverse total replacement of right shoulder Z96.611
--- NOTE | 2022-07-28 07:15 | XRay Report ---
SINGLE VIEW CHEST CLINICAL HISTORY: Dyspnea. FINDINGS: An AP, portable, upright chest radiograph is compared to study dated 07/07/2022 and correlat ed with chest CT dated 03/08/2022. The heart is enlarged note atherosclerotic calcification of the tho racic aorta. There is pulmonary vascular congestion with evidence of interstitial edema. There are la yering pleural effusions with dependent consolidation. No pneumothorax is seen. The skeletal structur es are osteopenic. There is chronic posttraumatic deformity of the right clavicle. Bilateral shoulder arthroplasties are in place. Skin clips project over the right shoulder. IMPRESSION: 1. Cardiomegaly with evidence of congestive failure and pulmonary edema. 2. Layering pleural effusions with dependent consolidation. These have significantly increased in siz e as compared to 07/07/2022. ACT 112: Negative or not required by law. Electronically signed by: Shade Guerin M.D. 07/28/2022 7:14 AM
--- NOTE | 2022-07-28 07:57 | Hospitalist Progress Note ---
Date of Service July 28, 2022 Assessment & Plan (1) Acute respiratory failure with hypoxia: Plan: This is a 71-year-old male with a history of HFpEF, bilateral pleural effusions, atrial fibrillation, coronary artery disease, peripheral artery disease, hyperlipidemia, anemia, pulmonary hypertension who presented to [facility] for R shoulder replacement on 07/26 and subsequently developed an increasing oxygen requirement, which is primarily suspected to be secondary to pulmonary edema Primary suspicion based on clinical appearance is acute HFpEF / pulmonary edema / worsening of known pleural effusions. VTE a possibility but will await labs; on ASA for post-surgical PPX. PNA is also a possibility Prior ECHO in October w/ normal EF, mild concentric LVH, EF 65-70% Patient had thoracentesis prior to surgery for 500cc with pulmonology -- t ransudative fluid 06/30 Had been having increased O2 requirements through AM 07/28 from baseline 2-4L (NO O2 at baseline), eventual need for BiPAP overnight to maintain adequate oxygenation VBG unremarkable CXR with cardiomegaly with evidence of congestive failure and pulmonary edema, layering pleural effusion with dependent consolidation, significantly increased compared to 07/07. increased pulmonary vascular congestion w/ b/l blunting costophrenic angle Lasix 40mg IV around 1am, additional 40mg IV at 7am. Metolazone 5mg PO x 1 (takes prn at home, not given during inpatient stay) Low salt diet, Daily weights (bedscale obtained this morning due to being on BiPAP) I&O Pulmonology consulted given continue O2 requirement/BiPAP with destat to 70-80s despite lasix IV x 2. Cr stable on labs following lasix -- s/p thoracentesis for 1650mL cloudy serous fluid, labs pending -- Post-thora CXR w/ improvement -- Aim for net negative 1-1.5L per pulmonology -- Lasix 20mg PO for tonight, usual 20mg PO ordered for AM but may need additional dose -- Supplemental O2 titration as able -- currently down to 1L this afternoon with SpO2 98%. Suspect able to titrate to room air by this evening MCV found to be 80, prior values <80 -- check iron panel/replacement as indicated. On daily ferrous sulfate. --Consider increasing to BID at discharge given iron 15/Trans % sat 8 vs giving dose of IV Iron while inpatient EKG last evening with sinus tachycardia -- has history of paroxysmal afib --Checked mag w/ AM labs --> 1.6/1.7 -- ordered 1gm IV Consider checking TSH, however in acute phase likely not to be accurate (normal last year). --Will check to be sure given on Synthroid and last check >1 year ago given effusions likely related to CHF Monitor response to diuretics after thoracentesis as above -- will need pulm f/u at discharge (2) Bilateral pleural effusion: Plan: Bilateral pleural effusions, known. follows w/ [facility] pulmonology s/p thoracentesis with 500cc fluid removal on 06/30/22 on the RIGHT side Was hospitalized in January 2021 for acute CHF for the same -- had thoracentesis at this time too CXR w/ layering effusions s/p thoracentesis with Dr Alvarez, labs pending Diuretics as outlined (3) CAD (coronary artery disease): Plan: CAD/PAD/HLD Catheterization during January 2021 admission with acute CHF -- demonstrated triple-vessel CAD that is currently being managed medically. Follows with Dr Sheffield for hx paroxysmal afib (patient prefer conservative approach no further monitoring/anticoagulation), 2nd degree AV block (had mobitz 1 second degree-AV identified while on BB, but patient back on BB due to CAD), patient declined implantable monitoring in past. Continue ASA 81mg, statin, metoprolol tartrate 25mg BID (?switching to succinate at d/c) (4) Pulmonary hypertension: Plan: Pulmonary HTN - History noted. Not appreciated on last TTE in 10/2021 Follows with [facility] pulmonology (5) Anemia: Plan: Chronic iron deficiency anemia with baseline around 9-10 Hgb 8.8 on AM labs, however volume overloaded as above, will monitor. No bleeding reported Iron panel w/ low iron/trans % sat --> consider increasing PO ferrous sulfate to BID vs IV Venofer while inpatient Monitor CBC on repeat w/ diuretics as above (6) Status post reverse total replacement of right shoulder: Plan: POD # 8 p Right Reverse Total Shoulder Arthroplasty(Right) with open biceps tenodesis as a distinct and separate procedure (modifier 59)- Yoel Ding, DO on 07/20 EBL 150cc Pain control/bowel regimen/DVT prophylaxis per primary service Was anticipating discharge 07/27, however see above (7) Peripheral arterial disease: Plan continued inpatient stay s/p thoracentesis, additional 20mg PO lasix for tonight, titrate O2 as able (currently 98% on 1L) will need f/u pulmonary at discharge/close monitoring given recurrence Admission and Anticipated Discharge Date Admission Date: July 26, 2022 Supervising Physician Co-Signing Physician Notes Plan reviewed with provider Mariaa Baxter and agree with all assessment and plan as described above, including the following: Patient s/p reverse total shoulder, with now recurrent pleural effusion s/p drainage by Pulmonology 07/28 with much relief in dyspnea and supplemental oxygen demand, continue to titrate as able. Regarding his dusky toes, has a history of peripheral arterial disease, severe in bilateral lower extremities with duplex in the past showing as such. Do not see Vascular notes on chart, but patient states has followed with providers in the past for this. Will need to clarify this as patient states that he is "supposed to have them chopped off". Continue antiplatelet agents. Subjective NO BILL -- INITIAL CONSULT PERFORMED AFTER MIDNIGHT, as placed for worsening hypoxia, not on O2 at baseline eval this morning, remains on BiPAP. Attempted to take off but dropped into the 70-80s. Endorses shortness of breath when removing the BiPAP. Not yet seen by pulmonary this morning, but discussed hopeful paracentesis to help with breathing. Not coughing much up. Does endorse some abdominal fullness as well. Moved his bowels once this morning. Trace ankle swelling. Received 40mg IV lasix x 2, unable to tolerate taking pills due to not being able to come off BiPAP. States only peed once since administration of lasix. Pain to shoulder currently controlled. Bilateral toes gangrenous in appearance, states not any better/worse than usual, sees specialist and to call them for amputation in future once recovered from current shoulder surgery. Hx afib, paroxysmal, EKG last night with sinus tachy. No pain with inspiration that would be concerning for PE. Denies knowing when in this rhythm either, but giving 1gm IV mag to keep closer to 2 (labs w/ values 1.6/1.7). Wanting to eat, messaged director motion picture for thoracentesis, hopefully to see this morning. Review of Systems Review of Systems: All systems reviewed & are unremarkable except as noted in HPI & below Physical Exam Physical Exam: General: chronically ill appearing male sitting up in bed, NAD but wanting to eat, remains on BiPAP HEENT: head normocephalic, atraumatic, mmm, pupils equal Resp: diminished in the bases, R>L, decreased air entry bilaterally, no wheezing, +crackles b/l lower lobes, on BiPAP CV: RRR (tachycardic, rate 102bpm), no m/r/g, no pitting edema GI: +BS, +slight distension, soft/NT (except deep palpation RUQ, +HJR) MSK/Neuro: moves all extremities, RUE in slight, dressing c/d/i, NVI, fingers mobile Skin: warm, dry, GANGRENOUS APPEARANCE TOES BILATERAL FEET Psych: alert, oriented x 3, irritable and wanting to eat Results & Data Results & Data ([facility]) Vital Signs (Past 12 Hours) Vital Signs Temp Pulse Pulse Resp BP Pulse Ox O2 Del Method 07/28/22 07:10 36.5 C 114 H 18 139/84 97 Oxymask 07/28/22 01:46 100 H 30 H 98 07/28/22 01:01 139/85 07/27/22 23:59 36.6 C 89 22 90 Nasal Cannula 07/27/22 20:00 Nasal Cannula 07/27/22 20:58 36.8 C 88 18 136/80 92 Nasal Cannula O2 Flow Rate FiO2 07/28/22 07:10 07/28/22 01:46 40 07/28/22 01:01 07/27/22 23:59 4 07/27/22 20:00 3 07/27/22 20:58 2 Laboratory Results 07/28/22 07/28/22 07/28/22 Range/Units 14:19 14:19 13:56 WBC (4.8-10.8) K/ul RBC (4.63-6.08) M/uL Hgb (14.0-18.0) g/dl Hct (40.1-51.0) % MCV (80.0-100.0) fL MCH (25.0-34.0) pg MCHC (32.0-36.0) g/dL RDW Std Deviation (36.4-46.3) fL RDW Coeff of Timbo (11.5-14.5) % Plt Count (130-400) K/uL MPV (9.4-12.4) fL Immature Gran % (Auto) % Neut % (Auto) % Lymph % (Auto) % Upson % (Auto) % Eos % (Auto) % Baso % (Auto) % Neut # (Auto) (1.4-6.5) K/uL Lymph # (Auto) (1.2-3.4) K/uL Upson # (Auto) (0.24-0.82) K/uL Eos # (Auto) (0-0.50) K/uL Baso # (Auto) (0-0.2) K/uL Immature Gran # (Auto) (0.00-0.02) K/uL VBG pH (7.36-7.41) VBG pCO2 (38-50) mmHg VBG pO2 mmHg VBG HCO3 mmol/L VBG O2 Saturation % VBG Base Excess mEq/L Sodium (136-145) mmol/L Potassium (3.5-5.1) mmol/L Chloride (98-107) mmol/L Carbon Dioxide (21-32) mmol/L Anion Gap (3-11) BUN (6-23) mg/dl Creatinine (0.6-1.4) mg/dl Est Cr Clr Drug Dosing ml/min Est GFR ( Amer) ml/min Est GFR (Non-Af Amer) ml/min BUN/Creatinine Ratio (10-20) Glucose (70-99(Fasting)) mg/dl Calcium (8.5-10.1) mg/dl Magnesium (1.7-2.4) mg/dl Iron (35-175) mcg/dl TIBC (250-450) mcg/dl Unsaturated IBC (155-355) mcg/dl Transferrin % Sat (20-50) % Ferritin (8-388) ng/ml Total Bilirubin 0.4 (0.2-1.0) mg/dl Lactate Dehydrogenase 139 (86-244) U/L Troponin I High Sens (0-20) pg/ml B-Natriuretic Peptide (0-100) pg/ml Total Protein 7.2 (6.0-8.3) gm/dl Albumin 2.8 L (3.4-5.0) gm/dl Procalcitonin (0-0.5) ng/ml Fluid Neutrophils % % Fluid Lymphocytes % % Fluid Eosinophils % % Fluid Meso/Macro/Upson % % Fluid Comment Pleural Fluid Source Pleural Color Pleural Appearance Pleural pH (7.3-7.4) Pleural WBC (Auto) /uL Pleural RBC (Auto) /uL Pleural Total Protein gm/dl Pleural LDH U/L Pleural Glucose mg/dl Pleural Amylase U/L Pleural Cholesterol Pending 07/28/22 07/28/22 07/28/22 Range/Units 13:56 13:56 13:56 WBC (4.8-10.8) K/ul RBC (4.63-6.08) M/uL Hgb (14.0-18.0) g/dl Hct (40.1-51.0) % MCV (80.0-100.0) fL MCH (25.0-34.0) pg MCHC (32.0-36.0) g/dL RDW Std Deviation (36.4-46.3) fL RDW Coeff of Timbo (11.5-14.5) % Plt Count (130-400) K/uL MPV (9.4-12.4) fL Immature Gran % (Auto) % Neut % (Auto) % Lymph % (Auto) % Upson % (Auto) % Eos % (Auto) % Baso % (Auto) % Neut # (Auto) (1.4-6.5) K/uL Lymph # (Auto) (1.2-3.4) K/uL Upson # (Auto) (0.24-0.82) K/uL Eos # (Auto) (0-0.50) K/uL Baso # (Auto) (0-0.2) K/uL Immature Gran # (Auto) (0.00-0.02) K/uL VBG pH (7.36-7.41) VBG pCO2 (38-50) mmHg VBG pO2 mmHg VBG HCO3 mmol/L VBG O2 Saturation % VBG Base Excess mEq/L Sodium (136-145) mmol/L Potassium (3.5-5.1) mmol/L Chloride (98-107) mmol/L Carbon Dioxide (21-32) mmol/L Anion Gap (3-11) BUN (6-23) mg/dl Creatinine (0.6-1.4) mg/dl Est Cr Clr Drug Dosing ml/min Est GFR ( Amer) ml/min Est GFR (Non-Af Amer) ml/min BUN/Creatinine Ratio (10-20) Glucose (70-99(Fasting)) mg/dl Calcium (8.5-10.1) mg/dl Magnesium (1.7-2.4) mg/dl Iron (35-175) mcg/dl TIBC (250-450) mcg/dl Unsaturated IBC (155-355) mcg/dl Transferrin % Sat (20-50) % Ferritin (8-388) ng/ml Total Bilirubin (0.2-1.0) mg/dl Lactate Dehydrogenase (86-244) U/L Troponin I High Sens (0-20) pg/ml B-Natriuretic Peptide (0-100) pg/ml Total Protein (6.0-8.3) gm/dl Albumin (3.4-5.0) gm/dl Procalcitonin (0-0.5) ng/ml Fluid Neutrophils % 48 % Fluid Lymphocytes % 24 % Fluid Eosinophils % 1 % Fluid Meso/Macro/Upson % 27 % Fluid Comment Pleural Fluid Source Left Lung Pleural Color Pale Yellow Pleural Appearance Hazy Pleural pH 7.47 H (7.3-7.4) Pleural WBC (Auto) 301 /uL Pleural RBC (Auto) 3000 /uL Pleural Total Protein < 3.0 gm/dl Pleural LDH 65 U/L Pleural Glucose 115 mg/dl Pleural Amylase 20 U/L Pleural Cholesterol 07/28/22 07/28/22 07/28/22 Range/Units 08:24 08:24 08:24 WBC (4.8-10.8) K/ul RBC (4.63-6.08) M/uL Hgb (14.0-18.0) g/dl Hct (40.1-51.0) % MCV (80.0-100.0) fL MCH (25.0-34.0) pg MCHC (32.0-36.0) g/dL RDW Std Deviation (36.4-46.3) fL RDW Coeff of Timbo (11.5-14.5) % Plt Count (130-400) K/uL MPV (9.4-12.4) fL Immature Gran % (Auto) % Neut % (Auto) % Lymph % (Auto) % Upson % (Auto) % Eos % (Auto) % Baso % (Auto) % Neut # (Auto) (1.4-6.5) K/uL Lymph # (Auto) (1.2-3.4) K/uL Upson # (Auto) (0.24-0.82) K/uL Eos # (Auto) (0-0.50) K/uL Baso # (Auto) (0-0.2) K/uL Immature Gran # (Auto) (0.00-0.02) K/uL VBG pH (7.36-7.41) VBG pCO2 (38-50) mmHg VBG pO2 mmHg VBG HCO3 mmol/L VBG O2 Saturation % VBG Base Excess mEq/L Sodium 136 (136-145) mmol/L Potassium 3.9 (3.5-5.1) mmol/L Chloride 100 (98-107) mmol/L Carbon Dioxide 29 (21-32) mmol/L Anion Gap 7 (3-11) BUN 21 (6-23) mg/dl Creatinine 0.71 (0.6-1.4) mg/dl Est Cr Clr Drug Dosing 98.9 ml/min Est GFR ( Amer) 109.4 ml/min Est GFR (Non-Af Amer) 94.4 ml/min BUN/Creatinine Ratio 29.6 H (10-20) Glucose 109 H (70-99(Fasting)) mg/dl Calcium 8.6 (8.5-10.1) mg/dl Magnesium 1.7 1.6 L (1.7-2.4) mg/dl Iron 15 L (35-175) mcg/dl TIBC 192 L (250-450) mcg/dl Unsaturated IBC 177 (155-355) mcg/dl Transferrin % Sat 8 L (20-50) % Ferritin 332.3 (8-388) ng/ml Total Bilirubin (0.2-1.0) mg/dl Lactate Dehydrogenase (86-244) U/L Troponin I High Sens (0-20) pg/ml B-Natriuretic Peptide (0-100) pg/ml Total Protein (6.0-8.3) gm/dl Albumin (3.4-5.0) gm/dl Procalcitonin (0-0.5) ng/ml Fluid Neutrophils % % Fluid Lymphocytes % % Fluid Eosinophils % % Fluid Meso/Macro/Upson % % Fluid Comment Pleural Fluid Source Pleural Color Pleural Appearance Pleural pH (7.3-7.4) Pleural WBC (Auto) /uL Pleural RBC (Auto) /uL Pleural Total Protein gm/dl Pleural LDH U/L Pleural Glucose mg/dl Pleural Amylase U/L Pleural Cholesterol 07/28/22 07/28/22 07/28/22 Range/Units 08:24 08:24 01:22 WBC 9.88 (4.8-10.8) K/ul RBC 3.64 L (4.63-6.08) M/uL Hgb 8.8 L (14.0-18.0) g/dl Hct 28.8 L (40.1-51.0) % MCV 79.1 L (80.0-100.0) fL MCH 24.2 L (25.0-34.0) pg MCHC 30.6 L (32.0-36.0) g/dL RDW Std Deviation 50.8 H (36.4-46.3) fL RDW Coeff of Timbo 17.9 H (11.5-14.5) % Plt Count 479 H (130-400) K/uL MPV 8.6 L (9.4-12.4) fL Immature Gran % (Auto) 0.3 % Neut % (Auto) 80.3 % Lymph % (Auto) 8.7 % Upson % (Auto) 9.5 % Eos % (Auto) 0.8 % Baso % (Auto) 0.4 % Neut # (Auto) 7.93 H (1.4-6.5) K/uL Lymph # (Auto) 0.86 L (1.2-3.4) K/uL Upson # (Auto) 0.94 H (0.24-0.82) K/uL Eos # (Auto) 0.08 (0-0.50) K/uL Baso # (Auto) 0.04 (0-0.2) K/uL Immature Gran # (Auto) 0.03 H (0.00-0.02) K/uL VBG pH 7.38 (7.36-7.41) VBG pCO2 49 (38-50) mmHg VBG pO2 30 mmHg VBG HCO3 29 mmol/L VBG O2 Saturation < 60.0 % VBG Base Excess 3.0 mEq/L Sodium (136-145) mmol/L Potassium (3.5-5.1) mmol/L Chloride (98-107) mmol/L Carbon Dioxide (21-32) mmol/L Anion Gap (3-11) BUN (6-23) mg/dl Creatinine (0.6-1.4) mg/dl Est Cr Clr Drug Dosing ml/min Est GFR ( Amer) ml/min Est GFR (Non-Af Amer) ml/min BUN/Creatinine Ratio (10-20) Glucose (70-99(Fasting)) mg/dl Calcium (8.5-10.1) mg/dl Magnesium (1.7-2.4) mg/dl Iron (35-175) mcg/dl TIBC (250-450) mcg/dl Unsaturated IBC (155-355) mcg/dl Transferrin % Sat (20-50) % Ferritin (8-388) ng/ml Total Bilirubin (0.2-1.0) mg/dl Lactate Dehydrogenase (86-244) U/L Troponin I High Sens (0-20) pg/ml B-Natriuretic Peptide (0-100) pg/ml Total Protein (6.0-8.3) gm/dl Albumin (3.4-5.0) gm/dl Procalcitonin 0.15 (0-0.5) ng/ml Fluid Neutrophils % % Fluid Lymphocytes % % Fluid Eosinophils % % Fluid Meso/Macro/Upson % % Fluid Comment Pleural Fluid Source Pleural Color Pleural Appearance Pleural pH (7.3-7.4) Pleural WBC (Auto) /uL Pleural RBC (Auto) /uL Pleural Total Protein gm/dl Pleural LDH U/L Pleural Glucose mg/dl Pleural Amylase U/L Pleural Cholesterol 07/28/22 07/28/22 07/28/22 Range/Units 01:22 01:22 01:22 WBC 10.24 (4.8-10.8) K/ul RBC 3.53 L (4.63-6.08) M/uL Hgb 8.5 L (14.0-18.0) g/dl Hct 28.3 L (40.1-51.0) % MCV 80.2 (80.0-100.0) fL MCH 24.1 L (25.0-34.0) pg MCHC 30.0 L (32.0-36.0) g/dL RDW Std Deviation 51.8 H (36.4-46.3) fL RDW Coeff of Timbo 17.8 H (11.5-14.5) % Plt Count 438 H (130-400) K/uL MPV 8.5 L (9.4-12.4) fL Immature Gran % (Auto) 0.5 % Neut % (Auto) 76.4 % Lymph % (Auto) 9.8 % Upson % (Auto) 9.7 % Eos % (Auto) 3.1 % Baso % (Auto) 0.5 % Neut # (Auto) 7.83 H (1.4-6.5) K/uL Lymph # (Auto) 1.00 L (1.2-3.4) K/uL Upson # (Auto) 0.99 H (0.24-0.82) K/uL Eos # (Auto) 0.32 (0-0.50) K/uL Baso # (Auto) 0.05 (0-0.2) K/uL Immature Gran # (Auto) 0.05 H (0.00-0.02) K/uL VBG pH (7.36-7.41) VBG pCO2 (38-50) mmHg VBG pO2 mmHg VBG HCO3 mmol/L VBG O2 Saturation % VBG Base Excess mEq/L Sodium 134 L (136-145) mmol/L Potassium 4.5 (3.5-5.1) mmol/L Chloride 101 (98-107) mmol/L Carbon Dioxide 27 (21-32) mmol/L Anion Gap 6 (3-11) BUN 24 H (6-23) mg/dl Creatinine 0.67 (0.6-1.4) mg/dl Est Cr Clr Drug Dosing 104.8 ml/min Est GFR ( Amer) 112.0 ml/min Est GFR (Non-Af Amer) 96.7 ml/min BUN/Creatinine Ratio 35.8 H (10-20) Glucose 107 H (70-99(Fasting)) mg/dl Calcium 8.7 (8.5-10.1) mg/dl Magnesium (1.7-2.4) mg/dl Iron (35-175) mcg/dl TIBC (250-450) mcg/dl Unsaturated IBC (155-355) mcg/dl Transferrin % Sat (20-50) % Ferritin (8-388) ng/ml Total Bilirubin (0.2-1.0) mg/dl Lactate Dehydrogenase (86-244) U/L Troponin I High Sens 9.7 (0-20) pg/ml B-Natriuretic Peptide 62 (0-100) pg/ml Total Protein (6.0-8.3) gm/dl Albumin (3.4-5.0) gm/dl Procalcitonin (0-0.5) ng/ml Fluid Neutrophils % % Fluid Lymphocytes % % Fluid Eosinophils % % Fluid Meso/Macro/Upson % % Fluid Comment Pleural Fluid Source Pleural Color Pleural Appearance Pleural pH (7.3-7.4) Pleural WBC (Auto) /uL Pleural RBC (Auto) /uL Pleural Total Protein gm/dl Pleural LDH U/L Pleural Glucose mg/dl Pleural Amylase U/L Pleural Cholesterol Diagnostic Findings Chest X-Ray 07/28/22 00:58 SINGLE VIEW CHEST CLINICAL HISTORY: Dyspnea. FINDINGS: An AP, portable, upright chest radiograph is compared to study dated 07/07/2022 and correlated with chest CT dated 03/08/2022. The heart is enlarged note atherosclerotic calcification of the thoracic aorta. There is pulmonary vascular congestion with evidence of interstitial edema. There are layering pleural effusions with dependent consolidation. No pneumothorax is seen. The skeletal structures are osteopenic. There is chronic posttraumatic deformity of the right clavicle. Bilateral shoulder arthroplasties are in place. Skin clips project over the right shoulder. IMPRESSION: 1. Cardiomegaly with evidence of congestive failure and pulmonary edema. 2. Layering pleural effusions with dependent consolidation. These have significantly increased in size as compared to 07/07/2022. ACT 112: Negative or not required by law. Electronically signed by: Shade Guerin M.D. 07/28/2022 7:14 AM Chest X-Ray 07/28/22 14:02 XR chest 1V portable HISTORY: 71 years-old Male S/P Thoracentesis follow-up study in a patient with pleural effusions and recent thoracentesis COMPARISON: Chest radiograph of same day TECHNIQUE: AP view of the chest FINDINGS: Cardiac silhouette is enlarged. Pulmonary vascular congestion with mildly improved pulmonary edema. No pneumothorax. Layering pleural effusions redemonstrated with decreased size of the left pleural effusion. Right greater left bibasilar consolidation with improved aeration of the left lung base. Chronic left-sided rib fractures. Reverse bilateral total joint arthroplasties with skin babatunde again noted overlying the right shoulder. Chronic right clavicular fracture deformity. IMPRESSION: 1. Decreased size of the left pleural effusion status post thoracentesis. No postprocedural pneumothorax identified. 2. Slightly improved pulmonary edema with improved aeration of the left lung base. ACT 112: Negative or not required by law. The above report was generated using voice recognition software. It may contain grammatical, syntax or spelling errors. Electronically signed by: Amor Ford M.D. 07/28/2022 2:25 PM PG Care Time/CCT Total # of Minutes Spent Total Time Spent with Patient: Total time spent is greater than 50% in coordination of care (as documented) at patient's floor/unit and/or counseling patient: Coding Level of Care Code None Diagnoses Acute respiratory failure with hypoxia J96.01 Bilateral pleural effusion J90 CAD (coronary artery disease) I25.10 Pulmonary hypertension I27.20 Anemia D64.9 Anemia type: unspecified type Status post reverse total replacement of right shoulder Z96.611 Peripheral arterial disease I73.9 (1) Anemia Anemia type: unspecified type Qualified Code(s): D64.9 - Anemia, unspecified
[2022-07-28 08:41] LABS: Basophils # (auto) 0.04 K/uL (0-0.2); Basophils % (auto) 0.4 %; Eosinophils # (auto) 0.08 K/uL (0-0.50); Eosinophils % (auto) 0.8 %; Hematocrit (blood only) 28.8 % (40.1-51.0); Hemoglobin 8.8 g/dl (14.0-18.0); Immature Granulocytes # (auto) 0.03 K/uL (0.00-0.02); Immature Granulocytes % (auto) 0.3 %; Lymphocytes # (auto) 0.86 K/uL (1.2-3.4); Lymphocytes % (auto) 8.7 %; Mean Corpuscular Hemoglobin 24.2 pg (25.0-34.0); Mean Corpuscular Hgb Conc 30.6 g/dL (32.0-36.0); Mean Corpuscular Volume 79.1 fL (80.0-100.0); Mean Platelet Volume 8.6 fL (9.4-12.4); Monocytes # (auto) 0.94 K/uL (0.24-0.82); Monocytes % (auto) 9.5 %; Neutrophils # (auto) 7.93 K/uL (1.4-6.5); Neutrophils % (auto) 80.3 %; Platelet Count 479 K/uL (130-400); RDW Coefficient of Variation 17.9 % (11.5-14.5); RDW Standard Deviation 50.8 fL (36.4-46.3); Red Blood Count 3.64 M/uL (4.63-6.08); White Blood Count 9.88 K/ul (4.8-10.8)
--- NOTE | 2022-07-28 08:45 | Pulmonary Consultation ---
Date of Consultation July 28, 2022 Assessment & Plan (1) Acute respiratory failure with hypoxia: (2) Bilateral pleural effusion: (3) Pulmonary edema: Chronicity: chronic Qualified Code(s): J81.1 - Chronic pulmonary edema (4) Shortness of breath: (5) (HFpEF) heart failure with preserved ejection fraction: Plan Chest x-ray 07/28/2022 personally reviewed: Portable film, mediastinal shift to the right with volume loss of the right lung, increased pulmonary vascular congestion with bilateral blunting of costophrenic angle. --Acute respiratory failure with hypoxia Secondary to pulmonary edema with bilateral pleural effusion Etiology is underlying diastolic CHF Last thoracentesis was performed by Sh[facility] Cortez on 07/07/2022, cytology was negative, culture was negative S/p thoracentesis 07/28/2022, 1650 cloudy serous fluid removed Covid-19 NAAT negative BNP 62 Procalcitonin 2D echo 11/25/2021: EF 65-70%, grade 1 diastolic dysfunction, mild concentric LVH, right ventricle not visualized --Bilateral pleural effusion Likely from underlying HFpEF Right sided pleural effusion has a lot of loculations and fibrin strands Plan: In/out: -1.6 L Continue with diuresis to keep the patient at least -1-1.5 L on a daily basis BiPAP nightly and as needed shortness of breath also be beneficial Given 20 mg of Lasix in the evening Please note the above document was generated using voice recognition software. It may contain grammatical, syntax or spelling errors.Any formal questions or concerns about the content, text or information contained within the body of this dictation should be directly addressed to the provider for clarification. History of Present Illness Attending Physician: Yoel Ding DO History of Present Illness 71-year-old male was admitted to the hospital for right shoulder replacement on 07/26, he got worsening of shortness of breath and pulmonary consulted Past medical history: HFpEF, A. fib, coronary artery disease, peripheral vascular disease, dyslipidemia, pulmonary hypertension At the end of examination patient was on BiPAP 06/03, saturating 98-99%. He was breathing in the mid 20s. Denies any chest pain. He did complain of difficulty breathing and needing BiPAP all the time. Denies any headache, no nausea vomiting No cough, no fever. The right shoulder pain was controlled with pain medications Patient did have thoracentesis in the past of the right side. Social history: [address] smoking history, quit at the age of 51 Allergies Allergy/AdvReac Type Severity Reaction Status Date / Time No Known Allergies Allergy Unknown Verified 07/20/22 10:41 Home Medications Medication Instructions Recorded Confirmed Type tamsulosin 0.4 mg capsule (Flomax) 0.4 mg PO QPM 01/10/19 07/20/22 History pantoprazole 40 mg tablet,delayed 40 mg PO QAM 08/01/20 07/07/22 History release multivitamin 1 tab PO QAM 10/05/20 07/20/22 History omega 2-sxu-yir-fish oil 1,200 mg 1 cap PO QAM 10/05/20 07/07/22 History (144 mg-216 mg) capsule (Fish Oil) trazodone 150 mg tablet 150 mg PO HS 10/05/20 07/20/22 History cholecalciferol (vitamin D3) 50 50 mcg PO QAM 10/16/20 07/20/22 History mcg (2,000 unit) capsule lidocaine 5 % topical patch 1 patch topical DAILY PRN Pain 10/16/20 07/20/22 History (Lidoderm) metoprolol tartrate 50 mg tablet 25 mg PO BID 01/16/21 07/20/22 History glucosamine-chondroitin 250 mg-200 1 tab PO BID 07/03/21 07/07/22 History mg tablet (Osteo Bi-Flex) atorvastatin 40 mg tablet 40 mg PO QAM 07/29/21 07/20/22 History fluticasone furoate 100 1 inh inhalation BID 07/29/21 07/20/22 History mcg-vilanterol 25 mcg/dose inhalation powder (Breo Ellipta) ferrous sulfate 325 mg (65 mg 325 mg PO QAM 11/09/21 07/20/22 History iron) tablet brimonidine 0.2 % eye drops 1 drp ophthalmic (eye) BID #1 btl 11/26/21 07/20/22 Rx dorzolamide 22.3 mg-timolol 6.8 1 drp ophthalmic (eye) TID #1 btl 11/26/21 07/20/22 Rx mg/mL eye drops latanoprost 0.005 % eye drops 1 drp ophthalmic (eye) HS #1 btl 11/26/21 07/20/22 Rx prednisolone acetate 1 % eye 1 drp ophthalmic (eye) TID #1 btl 11/26/21 07/20/22 Rx drops,suspension sulfamethoxazole 800 1 tab PO Q12H MRSA wound Left Hip 11/26/21 07/07/22 Rx mg-trimethoprim 160 mg tablet #0 tabs (Bactrim DS) food supplemt, lactose-reduced 1 ea PO TID 12/16/21 07/20/22 History 0.05 gram-1.5 kcal/mL oral liquid (Ensure Plus) gauze bandage 4" X 4" (Curad Gauze 12/16/21 06/24/22 History Pad) povidone-iodine 10 % topical 1 applic topical DAILY 12/16/21 07/20/22 History solution HEEL LIFTS #1 ea 12/22/21 06/24/22 Rx albuterol sulfate 90 mcg/actuation 2 puff inhalation BID PRN 03/08/22 07/20/22 History aerosol inhaler Shortness Of Breath Or Wheezing gabapentin 400 mg capsule 400 mg PO TID #270 caps 03/17/22 07/20/22 Rx bupropion HCl 100 mg tablet 200 mg PO BID 05/25/22 07/20/22 History furosemide 40 mg tablet (Lasix) 20 mg PO QAM 05/25/22 07/20/22 History methocarbamol 500 mg tablet 500 mg PO TID PRN MUSCLE RELAXANT 05/25/22 07/20/22 History potassium chloride 20 mEq/15 mL See Rx Instructions .Route .COMPLEX 05/25/22 07/20/22 History oral liquid sennosides 8.6 mg tablet 8.6 mg PO DAILY 05/25/22 07/20/22 History metolazone 5 mg tablet 5 mg PO DAILY PRN edema #30 tabs 05/26/22 07/20/22 Rx hydrocodone 5 mg-acetaminophen 325 1 tab PO TID PRN Pain 06/18/22 07/20/22 History mg tablet aspirin 81 mg tablet 81 mg PO DAILY 07/02/22 07/20/22 History oxycodone-acetaminophen 5 mg-325 1 tab PO Q6H PRN pain #60 tabs 07/21/22 Rx mg tablet (Percocet) terbinafine HCl 250 mg tablet 250 mg PO DAILY #30 tabs 07/26/22 Rx Patient History Medical History Anemia Anxiety Stable/controlled per pt Follows with CT psychiatry Atrial flutter, paroxysmal Per cardio visit 04/21/22, "We remain uncertain as to his atrial fibrillation burden and he continues to prefer a conservative approach meaning no further monitoring and no anticoagulation." Chronic back pain Chronic hypoxemic respiratory failure Follows with [facility], previously on supplementation oxygen (has not had for several months) Chronic osteomyelitis of hip Bactrim ppx Chronic ulcer of great toe Follows with [place] [facility] COVID-19 virus infection 08/2020 > Covid PNA, acute respiratory failure with hypoxia requiring BiPAP, also hospitalized 09/2020 with B/L pleural effusion and differential including potential correlation to recent COVID illness Degeneration of cervical intervertebral disc Depression Stable/controlled per pt Follows with CT psychiatry Glaucoma Hearing deficit Hearing aid (left) Heart failure Diastolic Follows with ([facility]/Dr. Sheffield) History of blood transfusion [id number] (with multiple hip surgeries) Hx MRSA infection Left hip since 2009, Chronic/chcf bactrim daily Hyperlipidemia Hypokalemia Leg length discrepancy RLE > LLE s/p multiple left hip revisions (per patient, missing hip joint) due to complications from hip surgery/revisions/MRSA infection- on chronic preventative Bactrim-- uses shoe with elevated heel/crutches Osteoarthritis Osteoporosis Peptic ulcer disease 2018 Pleural effusion Recurrent (most recent need for drainage several months ago) Pneumonia Recent hospitalization 04/2022 PNA/pleural effusion ([facility]) Pulmonary hypertension Restless leg syndrome Transient ischemic attack (TIA) ~2014 Surgical History H/O eye surgery 2 DRAINAGE TUBES RT/LEFT EYES FOR GLAUCOMA currently in place Retinal lift and cadaver placement week of 08/03/2021 in [place] History of bilateral cataract extraction History of cardiac cath 01/2021 [facility]: "Medical management of moderate to severe CAD" NO STENTS History of colonoscopy History of esophagogastroduodenoscopy (EGD) History of hip surgery LEFT HIP SURGERY/REVISIONS (TOTAL OF 9 SURGERIES) History of laminectomy L3-L5 laminectomy: 05/12/15: Grade view 1, MAC#3, ETT 8.0 (atraumatic DL x 1) at [facility] History of thoracentesis 04/2022 [facility] History of tonsillectomy and adenoidectomy History of tooth extraction Status post reverse total arthroplasty of left shoulder 07/03/2019: Grade 1 view, MAC#3, ETT#8.0, atraumatic x 1 + PNB. Family History Father , about age 60 Cerebral aneurysm Mother No pertinent past medical history Grandmother (Maternal) Myocardial infarction Denies family history of Ovarian cancer Prostate cancer Crohn's disease Breast cancer Colorectal cancer Ulcerative colitis Social History Smoking Status: Former smoker Tobacco Type: Smokeless Tobacco (Dip or Chew) Age Started Using Tobacco: 15; packs per day: 1.5; Cigarettes Per Day: 1 ppd over 20yrs ago; Smoking End Date: Quit 20 years ago (hx 1 PPD); Second Hand Exposure: No; Do You Dip or Chew Tobacco: No (Quit 6 months ago); Tobacco Cessation Education Requested by Patient: No Hx Alcohol Use: No Hx Substance Use: Yes Last Used Substance Other:: hx medical marijuana card- does not currently use- last use 1 yr ago Preferred Language: Telugu Communication Ability: Effective Visual Impairment: No Limitations Hearing Ability: Normal Internal Corrosion Specialist Required: No Beliefs That Will Affect Care: None marital status: Current Living Situation: Spouse current occupational status: retired 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 [employer] How many Children do You have: 2 How many Children do You have Comment: 1 is Other Information That Helps Us Care for You: No Feels Safe at Home: Yes Safety Concerns: Feels Safe At This Time Childhood Exposure to Second-Hand Smoke: Yes caffeine: Yes Dental Care, Regularly: No Physical Activity Frequency: Does not Exercise Physical Activity Frequency Comment: Rehab twice a week Seatbelt Use: sometimes Sunscreen Use: No Assistive Devices: Crutches Review of Systems Review of Systems: All systems reviewed & are unremarkable except as noted in HPI & below Physical Exam Physical Exam: Constitutional: Respiratory distress HEENT: EOMI, PERRLA Respiratory system: Decreased air entry bilaterally, no wheeze, rhonchi, positive crackles bilateral lower lobes CVS: S1-S2 positive, no murmurs or gallops Abdomen: Soft, nontender, nondistended, positive bowel sounds x4 Extremities: +2 pulses bilaterally radialis/ dorsalis pedis, no cyanosis, no edema, gangrene of the toes appreciated in bilateral feet Neuro: Awake alert oriented x3 Psych: Normal mood and affect G/U: No Rodriguez Skin: no rashes, warm and dry Lymphatic: no cervical or axillary lymphadenopathy Results & Data Results & Data ([facility]) Vital Signs (Past 12 Hours) Vital Signs Temp Pulse Pulse Resp BP Pulse Ox O2 Del Method 07/28/22 07:10 36.5 C 114 H 18 139/84 97 Oxymask 07/28/22 01:46 100 H 30 H 98 07/28/22 01:01 139/85 07/27/22 23:59 36.6 C 89 22 90 Nasal Cannula 07/27/22 20:58 36.8 C 88 18 136/80 92 Nasal Cannula O2 Flow Rate FiO2 07/28/22 07:10 07/28/22 01:46 40 07/28/22 01:01 07/27/22 23:59 4 07/27/22 20:58 2 PG Care Time/CCT Total # of Minutes Spent Total Time Spent with Patient: Total time spent is greater than 50% in coordination of care (as documented) at patient's floor/unit and/or counseling patient: Coding Level of Care Code 61008 Initial Inpt Care Lvl 3 Diagnoses Acute respiratory failure with hypoxia J96.01 Bilateral pleural effusion J90 Pulmonary edema J81.1 Chronicity: chronic Shortness of breath R06.02 (HFpEF) heart failure with preserved ejection fraction I50.30
[2022-07-28 09:04] LABS: BUN Creatinine Ratio 29.6 (10-20); Calcium 8.6 mg/dl (8.5-10.1); Creatinine Clr Calc Pharmacy 98.9 ml/min; Est GFR (African American) 109.4 ml/min; Est GFR (Non-African American) 94.4 ml/min; Magnesium 1.6 mg/dl (1.7-2.4); Potassium 3.9 mmol/L (3.5-5.1)
[2022-07-28] MEDS ORDERED: MAGNESIUM SULFATE / D5W 1 GM/100 ML BAG IV ONE (09:15)
[2022-07-28 09:20] LABS: Ferritin 332.3 ng/ml (8-388)
[2022-07-28] MEDS: ASPIRIN 81 MG ECTAB PO SCH (10:37)
[2022-07-28] MEDS: ATORVASTATIN 40 MG TAB PO SCH (10:37)
[2022-07-28] MEDS: DOCUSATE SODIUM 100 MG CAP PO SCH ×2 (10:38→21:13)
[2022-07-28] MEDS: buPROPion HCl 100 MG TABLET PO SCH ×2 (10:38→21:14)
[2022-07-28] MEDS: FERROUS SULFATE 325 MG TAB PO SCH (10:39)
[2022-07-28] MEDS: GABAPENTIN 400 MG CAP PO SCH ×3 (10:39→21:14)
[2022-07-28] MEDS: METOPROLOL TARTRATE 25 MG TAB PO SCH ×2 (10:39→20:22)
[2022-07-28] MEDS: PANTOprazole 40 MG TAB PO SCH (10:40)
[2022-07-28] MEDS: SENNA 8.6 MG TAB PO SCH ×2 (10:40→21:14)
[2022-07-28] MEDS: MULTIVITAMIN TAB PO SCH (10:40)
[2022-07-28] MEDS: POTASSIUM CHLORIDE 20 MEQ/15 ML UDC PO SCH (10:41)
[2022-07-28] MEDS: FLUTICASONE/VILANTEROL 100/25MCG 14 PUFFS/INHALER INH SCH (10:43)
[2022-07-28] MEDS: prednisoLONE acetate 1% OP SUSP 5 ML BTL OP SCH ×3 (10:46→21:16)
[2022-07-28] MEDS: DORZOLAMIDE/TIMOLOL 22.3/6.8MG/ML 10 ML BTL OP SCH ×3 (10:47→21:15)
[2022-07-28] MEDS: BRIMONIDINE TARTRATE 0.2% 5ML OP SCH ×2 (10:47→21:15)
--- NOTE | 2022-07-28 13:17 | Electrocardiogram Report ---
Test Reason : Blood Pressure : / mmHG Vent. Rate : 102 BPM Atrial Rate : 102 BPM P-R Int : 140 ms QRS Dur : 088 ms QT Int : 332 ms P-R-T Axes : 054 009 052 degrees QTc Int : 432 ms Sinus tachycardia Otherwise normal ECG When compared with ECG of 24-MAY-2022 15:51, No significant change was found Confirmed by Woody Bolton ([id number]) on 07/28/2022 1:17:13 PM Referred By: Yoel Ding Confirmed By:Joey Bolton
--- NOTE | 2022-07-28 14:03 | Procedure Note ---
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 Procedure: Consent was verified and timeout performed. Appropriate imaging studies were reviewed prior to the procedure. Patient was placed in a seated position and limited thoracic ultrasound was performed of the left chest. See separate imaging. Appropriate site above the diaphragm for thoracentesis was selected. The skin was prepped and draped in no rmal sterile fashion. Lidocaine was used for local analgesia. Fluid was aspirated via the finder needle. A small skin lexie was made with the scalpel and the catheter over the needle apparatus was advanced over the rib into the pleural space. Using the syringe one-way valve system, a total of 1650 mL's of cloudy serous fluid was removed. The catheter was removed and observed to be intact. A sterile dressing was applied. Post procedure chest x-ray was ordered. Fluid was sent for labs, culture and cytology. Good lung sliding was appreciated postprocedure on ultrasound Bedside Ultrasound: Lung: Right:-Pleural effusion with fibrin strands,atelectasis, B-lines posteriorly Left:-Moderate to large pleural effusion, atelectasis, B-lines posteriorly Complications: None Blood loss: 2 cc Coding CPT Codes Pulmonary/Thoracic - Pulmonary and Thoracic: 06734 Thoracentesis w imaging ([id number]) Pulmonary/Thoracic - Pulmonary and Thoracic: 75545 US, Chest, real time with imaging documentation ([id number]) [facility] Procedure Codes (Charges) Pulmonary/Thoracic Procedure 1: Pulmonary and Thoracic: 35076 Thoracentesis w imaging Procedure 2: Pulmonary and Thoracic: 41861 US, Chest, real time with imaging documentation
--- NOTE | 2022-07-28 14:27 | XRay Report ---
XR chest 1V portable HISTORY: 71 years-old Male S/P Thoracentesis follow-up study in a patient with pleural effusions and recent thoracentesis COMPARISON: Chest radiograph of same day TECHNIQUE: AP view of the chest FINDINGS: Cardiac silhouette is enlarged. Pulmonary vascular congestion with mildly improved pulmonary edema. N o pneumothorax. Layering pleural effusions redemonstrated with decreased size of the left pleural eff usion. Right greater left bibasilar consolidation with improved aeration of the left lung base. Chron ic left-sided rib fractures. Reverse bilateral total joint arthroplasties with skin babatunde again not ed overlying the right shoulder. Chronic right clavicular fracture deformity. IMPRESSION: 1. Decreased size of the left pleural effusion status post thoracentesis. No postprocedural pneumotho rax identified. 2. Slightly improved pulmonary edema with improved aeration of the left lung base. ACT 112: Negative or not required by law. The above report was generated using voice recognition software. It may contain grammatical, syntax o r spelling errors. Electronically signed by: Amor Ford M.D. 07/28/2022 2:25 PM
[2022-07-28 14:52] LABS: Amylase Pleural Fluid 20 U/L; Glucose Pleural Fluid 115 mg/dl; LDH Pleural Fluid 65 U/L; Total Protein Pleural Fluid < 3.0 gm/dl
[2022-07-28 14:53] LABS: Albumin Level 2.8 gm/dl (3.4-5.0); Bilirubin,Total 0.4 mg/dl (0.2-1.0); Total Protein 7.2 gm/dl (6.0-8.3)
[2022-07-28 15:53] LABS: Appearance Pleural Fluid Hazy; Color Pleural Fluid Pale Yellow; Eosinophils, Fluid 1 %; Lymphocytes, Fluid 24 %; Mono,Macrophage,Mesothelial 27 %; Neutrophils, Fluid 48 %; RBC Pleural Fluid Auto 3000 /uL; Source Pleural Fluid Left Lung; WBC Pleural Fluid Auto 301 /uL
[2022-07-28] MEDS ORDERED: CLOPIDOGREL BISULFATE 75 MG TAB PO ONE (18:10)
[2022-07-28] MEDS ORDERED: FUROSEMIDE INJ 20 MG/2 ML VIAL IV ONE (18:18)
--- NOTE | 2022-07-28 20:29 | Communication Note ---
Date of Service: July 28, 2022 Notified by RN earlier this evening patient was in AFib RVR w/ rates in the 140- 170+ Must have started sometime between 4pm - 8pm given record of vital signs noted that patient developed signs of acute HFpEF last night, has responded well to diuresis volume down approx. -3.5L over the last 24 hr, and -6.6L since admission (though some po intake has not been recorded) noted he had 1.5 out on thoracentesis today asymptomatic on exam, other than mild pain over site of thoracentesis BP 124/80 upon arrival to the room, rates in the 140-150s awakens spontaneously, responses appropriate no jvd, no peripheral edema, appears dry on exam rapid rate w/ irregular rhythm, no m/r/g capillary refill < 2 seconds afib rvr - has history tte in 10/2021 w/ lvef 65-70% he is not on chronic anticoagulation at home ecg without acute ischemic changes taken at time of realization suspect partly due to being volume contracted, but also physiologic stress of procedure today and recent surgery given dry appearance but with appreciation of active hfpef and recent surgery, will trial a small 250cc bolus and consider more pending response give 2gm of mag now patient just received home nighttime beta blockade - will await response before giving more since he is asymptomatic with good bp unfortunately cannot give iv beta blockade or antiarrhythmics right now on ms/t so will move to pcu plan communicated to rn Resident Activity Tracking Resident Involvement: Resident Care Provided Care Provided: Adult Hospital Medicine
[2022-07-28] MEDS: MAGNESIUM SULFATE / D5W 1 GM/100 ML BAG IV SCH ×2 (20:38→22:34)
[2022-07-28] MEDS ORDERED: LACTATED RINGER'S 250 ML IV ONE (20:38)
[2022-07-28] MEDS: traZODone HCL 50 MG TAB PO SCH ×2 (21:14→21:21)
[2022-07-28] MEDS: LATANOPROST 0.005% OP SOLN 2.5 ML BTL OP SCH (21:16)
[2022-07-28] MEDS: TAMSULOSIN HCL 0.4 MG CAP PO SCH (21:21)
[2022-07-28] MEDS: SULFAMETHOXAZOLE/TRIMETHOPRIM DS 800/160MG TAB PO SCH (22:37)
[2022-07-29] MEDS: oxyCODONE HCL IR 5 MG TAB (IMMEDIATE RELEASE) PO PRN ×4 (00:23→17:22)
[2022-07-29] MEDS: ACETAMINOPHEN 500 MG TAB PO SCH ×3 (05:35→22:34)
[2022-07-29 06:25] LABS: Basophils # (auto) 0.03 K/uL (0-0.2); Basophils % (auto) 0.4 %; Eosinophils % (auto) 1.3 %; Hematocrit (blood only) 25.3 % (40.1-51.0); Hemoglobin 7.6 g/dl (14.0-18.0); Immature Granulocytes # (auto) 0.02 K/uL (0.00-0.02); Immature Granulocytes % (auto) 0.3 %; Lymphocytes # (auto) 1.02 K/uL (1.2-3.4); Lymphocytes % (auto) 12.8 %; Mean Corpuscular Hemoglobin 23.8 pg (25.0-34.0); Mean Corpuscular Volume 79.1 fL (80.0-100.0); Mean Platelet Volume 8.8 fL (9.4-12.4); Monocytes # (auto) 0.91 K/uL (0.24-0.82); Monocytes % (auto) 11.5 %; Neutrophils # (auto) 5.86 K/uL (1.4-6.5); Neutrophils % (auto) 73.7 %; Platelet Count 399 K/uL (130-400); RDW Coefficient of Variation 17.8 % (11.5-14.5); RDW Standard Deviation 50.6 fL (36.4-46.3); White Blood Count 7.94 K/ul (4.8-10.8)
[2022-07-29 06:43] LABS: BUN Creatinine Ratio 38.7 (10-20); Calcium 8.2 mg/dl (8.5-10.1); Creatinine Clr Calc Pharmacy 104.5 ml/min; Est GFR (African American) 115.7 ml/min; Est GFR (Non-African American) 99.8 ml/min; Magnesium 2.2 mg/dl (1.7-2.4); Potassium 3.7 mmol/L (3.5-5.1)
[2022-07-29 07:05] LABS: Hypochromasia Present; Polychromasia 1+
--- NOTE | 2022-07-29 07:27 | XRay Report ---
XR chest 1V portable CLINICAL HISTORY: f/u COMPARISON STUDY: Chest CT March 08, 2022. Chest radiograph July 28, 2022. FINDINGS: Bilateral shoulder arthroplasties are noted. There is an old, healed distal right clavicula r fracture. There is no pneumothorax. Small right and trace left pleural effusions are similar to neisha or exam. Multiple old left-sided rib fractures are present. Right lung volume loss with airspace opac ities are unchanged. Airspace opacities likely reflect round atelectasis with correlating with prior CT. Pulmonary edema persists. This is slightly improved. IMPRESSION: 1. Persistent, but mildly improved, pulmonary edema. 2. Small bilateral pleural effusions. No pneumothorax. ACT 112: Negative or not required by law. Electronically signed by: Kalyan Martinez M.D. 07/29/2022 7:25 AM
--- NOTE | 2022-07-29 07:50 | Hospitalist Progress Note ---
Date of Service July 29, 2022 Assessment & Plan (1) Acute respiratory failure with hypoxia: Plan: This is a 71-year-old male with a history of HFpEF, bilateral pleural effusions, atrial fibrillation, coronary artery disease, peripheral artery disease, hyperlipidemia, anemia, pulmonary hypertension who presented to [facility] for R shoulder replacement on 07/26 and subsequently developed an increasing oxygen requirement, which is primarily suspected to be secondary to pulmonary edema Primary suspicion based on clinical appearance is acute HFpEF / pulmonary edema / worsening of known pleural effusions. VTE a possibility but will await labs; on ASA for post-surgical PPX. PNA is also a possibility Prior ECHO in October w/ normal EF, mild concentric LVH, EF 65-70% Patient had thoracentesis prior to surgery for 500cc with pulmonology -- tr ansudative fluid 06/30 Had been having increased O2 requirements through AM 07/28 from baseline 2-4L (NO O2 at baseline), eventual need for BiPAP overnight to maintain adequate oxygenation VBG unremarkable CXR with cardiomegaly with evidence of congestive failure and pulmonary edema, layering pleural effusion with dependent consolidation, significantly increased compared to 07/07. increased pulmonary vascular congestion w/ b/l blunting costophrenic angle Lasix 40mg IV x2 on 07/28, metolazone 5mg PO x 1 Pulm consulted -- appreciate assistance s/p thoracentesis for 1650mL cloudy serous fluid 07/28 Was given additional 40mg IV last evening w/ elevation in HR to 140-160s (patient reports asymptomatic/no increased SOB/CP) and was transferred to telemetry and additional IV mag provided (prior value 1.7, 1gm IV ordered 07/28) and was also provided IVF 250cc for volume contraction suspected however no hypotension noted Converted to NSR this overnight around 0. TSH 1.5 Cardiology consulted given afib/hx, followed by Dr Sheffield -- agrees w/ IV lasix, additional dose for tomorrow. Consideration for anticoagulation and if so would need Aspirin discontinued Messaged orthopedics regarding need for blood transfusion for hgb 7.2, ordered 1u PRBC after discussion with pulmonology with additional dose of lasix Venofer IV x1 this morning for iron 15/trans%sat 15 and on daily ferrous sulfate outpatient and can increase to BID Titrated to 2L, 95% Planning to repeat CXR in AM Plavix placed on hold, no obvious bleeding, no reported melena/hematochezia, hematuria. No increased hematoma to shoulder. Plavix had been held pre-op, resumed last evening Did consult GI given hx esophageal varicies on EGD in Sep 2021 w/ Dr Rush/upper abd discomfort . Increased PPI to BID empicially for now Also placed back on Bactrim BID given chronic L hip osteomyelitis (2) Bilateral pleural effusion: Plan: Bilateral pleural effusions, known. [place] [facility] [place] s/p thoracentesis with 500cc fluid removal on 06/30/22 on the RIGHT side Was hospitalized in January 2021 for acute CHF for the same -- had thoracentesis at this time too CXR w/ layering effusions, s/p thoracentesis with Dr Alvarez 07/28 Diuretics as outlined CXR improved, additional diuretics with PRBC to be provided CXR for AM ordered and to be monitored by pulmonary (3) CAD (coronary artery disease): Plan: CAD/PAD/HLD Catheterization during January 2021 admission with acute CHF -- demonstrated triple-vessel CAD that is currently being managed medically. Follows with Dr Sheffield for hx paroxysmal afib (patient prefer conservative approach no further monitoring/anticoagulation), 2nd degree AV block (had mobitz 1 second degree-AV identified while on BB, but patient back on BB due to CAD), patient declined implantable monitoring in past. Continue ASA 81mg, statin, metoprolol tartrate 25mg BID (?switching to succinate at d/c) Cardiology consulted as above given patient flip afib/flutter and transferred to PCU. Consideration for anticoagulation if patient agreeable Keep K~4, Mag ~2 (4) Pulmonary hypertension: Plan: Pulmonary HTN - History noted. Not appreciated on last TTE in 10/2021 Follows with [facility] [place] (5) Anemia: Plan: Chronic iron deficiency anemia with baseline around 9-10 Hgb 8.8 on AM labs, however volume overloaded as above, will monitor. No bleeding reported Iron panel w/ low iron/trans % sat --> consider increasing PO ferrous sulfate to BID vs IV Venofer while inpatient. Did given Venofer IV x 1 this morning, 1u PRBC for hgb <8 Monitor CBC on repeat w/ diuretics as above (6) Status post reverse total replacement of right shoulder: Plan: POD # 9 p Right Reverse Total Shoulder Arthroplasty(Right) with open biceps t enodesis as a distinct and separate procedure (modifier 59)- Yoel Dign, on 07/20 EBL 150cc Pain control/bowel regimen/DVT prophylaxis per primary service Was anticipating discharge 07/27, however see above (7) Peripheral arterial disease: Plan: [facility]/p LLE angioplasty with stenting Plavix held for shoulder surgery, resumed as above but now again on hold for anemia Will need outpatient follow up at discharge (8) Esophageal varices: Plan: hx cirrhosis, ?2nd RILEY, no reported etoh use/abuse however did have B12 deficiency noted esophageal varices on EGD earlier this year with Dr rush, consulted given anemia and GI discomfort. Increased PPI to BID in meantime Plan continued inpatient stay 1u PRBC, diuretics cards/pulm on consult GI consulted given hx varicies/anemia/abd fullness hold plavix for now encompass when medically stable Admission and Anticipated Discharge Date Admission Date: July 26, 2022 Supervising Physician Co-Signing Physician Notes Plan reviewed with provider Mariaa Baxter and agree with all assessment and plan as described above, including the following: Bilateral foot dry gangrenous toes. No palpable dorsalis pedis or posterior tibial pulses -> Aggressive risk factor modification with statin, aspirin with follow up with Vascular provider in [employer]. No evidence of infection. On Bactrim for hip osteomyelitis, restarted. Went into AFlutter overnight last night, Cardiology recommends in particular considering anticoagulation however some concern for bleeding at this time so defer for now. No changes to medical management of atrial arrhythmia. Subjective eval this afternoon feeling alright, pain controlled back on 2L hgb dropped, giving 1u PRBC Denied any symptoms with palpitations/lightheadedness/chest pain/SOB last even ing when went into afib. Hx of such. Consulted cardiology for hx afib not on AC. Some pain w/ inspiration in site of stomach. Did endorse EGD earlier this year. Report w/ esophageal varices. Denies any darkened stools/hematemesis or hematochezia.Consulted GI given no hematoma to his shoulder/source bleeding. Increased protonix to BID empirically in the meantime. Questions/concerns addressed at this time. Review of Systems Review of Systems: All systems reviewed & are unremarkable except as noted in HPI & below Physical Exam Physical Exam: General: chronically ill appearing male sitting up in bed, NAD, on 2L NC this afternoon HEENT: head normocephalic, atraumatic, mm dry, pupils equal Resp: diminished in the bases but improved aeration compared to yesterday, bibasilar crackles, no wheezing, on 2L CV: RRR (80s), no m/r/g, no pitting edema GI: +BS, tenderness LUQ, no guarding/rebound MSK/Neuro: [place] to R shoulder, sling intact, no significant swelling/edema, NVI, fingers mobile, pulses palpable GANGRENOUS appearance to toes bilaterally, sensation reported intact to pressure/light touch Psych: alert/oriented x 3, pleasant and cooperative Results & Data Results & Data ([facility]) Vital Signs (Past 12 Hours) Vital Signs Temp Pulse Pulse Pulse Resp BP Pulse Ox 07/29/22 03:41 36.5 C 91 H 14 122/72 92 07/28/22 23:52 95 H 07/28/22 23:26 37.2 C 89 12 97/61 L 99 07/28/22 22:16 105 H 07/28/22 21:55 07/28/22 21:46 37.2 C 108 H 22 110/69 96 07/28/22 20:30 37.2 C 146 H 20 122/73 95 07/28/22 20:03 140 H 18 94 O2 Del Method O2 Flow Rate 07/29/22 03:41 Nasal Cannula 4 07/28/22 23:52 07/28/22 23:26 Nasal Cannula 4 07/28/22 22:16 07/28/22 21:55 Nasal Cannula 4 07/28/22 21:46 Nasal Cannula 4 07/28/22 20:30 Nasal Cannula 2 07/28/22 20:03 Nasal Cannula 2 Laboratory Results 07/29/22 07/29/22 07/29/22 Range/Units 05:48 05:48 05:48 WBC 7.94 (4.8-10.8) K/ul RBC 3.20 L (4.63-6.08) M/uL Hgb 7.6 L (14.0-18.0) g/dl Hct 25.3 L (40.1-51.0) % MCV 79.1 L (80.0-100.0) fL MCH 23.8 L (25.0-34.0) pg MCHC 30.0 L (32.0-36.0) g/dL RDW Std Deviation 50.6 H (36.4-46.3) fL RDW Coeff of Timbo 17.8 H (11.5-14.5) % Plt Count 399 (130-400) K/uL MPV 8.8 L (9.4-12.4) fL Immature Gran % (Auto) 0.3 % Neut % (Auto) 73.7 % Lymph % (Auto) 12.8 % [place] % (Auto) 11.5 % Eos % (Auto) 1.3 % Baso % (Auto) 0.4 % Neut # (Auto) 5.86 (1.4-6.5) K/uL Lymph # (Auto) 1.02 L (1.2-3.4) K/uL [place] # (Auto) 0.91 H (0.24-0.82) K/uL Eos # (Auto) 0.10 (0-0.50) K/uL Baso # (Auto) 0.03 (0-0.2) K/uL Immature Gran # (Auto) 0.02 (0.00-0.02) K/uL Polychromasia 1+ Hypochromasia Present Sodium 135 L (136-145) mmol/L Potassium 3.7 (3.5-5.1) mmol/L Chloride 98 (98-107) mmol/L Carbon Dioxide 32 (21-32) mmol/L Anion Gap 5 (3-11) BUN 24 H (6-23) mg/dl Creatinine 0.62 (0.6-1.4) mg/dl Est Cr Clr Drug Dosing 104.5 ml/min Est GFR ( Amer) 115.7 ml/min Est GFR (Non-Af Amer) 99.8 ml/min BUN/Creatinine Ratio 38.7 H (10-20) Glucose 114 H (70-99(Fasting)) mg/dl Calcium 8.2 L (8.5-10.1) mg/dl Magnesium 2.2 (1.7-2.4) mg/dl Iron (35-175) mcg/dl TIBC (250-450) mcg/dl Unsaturated IBC (155-355) mcg/dl Transferrin % Sat (20-50) % Ferritin (8-388) ng/ml Total Bilirubin (0.2-1.0) mg/dl Lactate Dehydrogenase (86-244) U/L Total Protein (6.0-8.3) gm/dl Albumin (3.4-5.0) gm/dl Procalcitonin (0-0.5) ng/ml TSH 1.518 (0.300-4.500) uIu/ml Fluid Neutrophils % % Fluid Lymphocytes % % Fluid Eosinophils % % Fluid Meso/Macro/[place] % % Fluid Comment Pleural Fluid Source Pleural Color Pleural Appearance Pleural pH (7.3-7.4) Pleural WBC (Auto) /uL Pleural RBC (Auto) /uL Pleural Total Protein gm/dl Pleural LDH U/L Pleural Glucose mg/dl Pleural Amylase U/L Pleural Cholesterol 07/28/22 07/28/22 07/28/22 Range/Units 14:19 14:19 13:56 WBC (4.8-10.8) K/ul RBC (4.63-6.08) M/uL Hgb (14.0-18.0) g/dl Hct (40.1-51.0) % MCV (80.0-100.0) fL MCH (25.0-34.0) pg MCHC (32.0-36.0) g/dL RDW Std Deviation (36.4-46.3) fL RDW Coeff of Timbo (11.5-14.5) % Plt Count (130-400) K/uL MPV (9.4-12.4) fL Immature Gran % (Auto) % Neut % (Auto) % Lymph % (Auto) % [place] % (Auto) % Eos % (Auto) % Baso % (Auto) % Neut # (Auto) (1.4-6.5) K/uL Lymph # (Auto) (1.2-3.4) K/uL [place] # (Auto) (0.24-0.82) K/uL Eos # (Auto) (0-0.50) K/uL Baso # (Auto) (0-0.2) K/uL Immature Gran # (Auto) (0.00-0.02) K/uL Polychromasia Hypochromasia Sodium (136-145) mmol/L Potassium (3.5-5.1) mmol/L Chloride (98-107) mmol/L Carbon Dioxide (21-32) mmol/L Anion Gap (3-11) BUN (6-23) mg/dl Creatinine (0.6-1.4) mg/dl Est Cr Clr Drug Dosing ml/min Est GFR ( Amer) ml/min Est GFR (Non-Af Amer) ml/min BUN/Creatinine Ratio (10-20) Glucose (70-99(Fasting)) mg/dl Calcium (8.5-10.1) mg/dl Magnesium (1.7-2.4) mg/dl Iron (35-175) mcg/dl TIBC (250-450) mcg/dl Unsaturated IBC (155-355) mcg/dl Transferrin % Sat (20-50) % Ferritin (8-388) ng/ml Total Bilirubin 0.4 (0.2-1.0) mg/dl Lactate Dehydrogenase 139 (86-244) U/L Total Protein 7.2 (6.0-8.3) gm/dl Albumin 2.8 L (3.4-5.0) gm/dl Procalcitonin (0-0.5) ng/ml TSH (0.300-4.500) uIu/ml Fluid Neutrophils % % Fluid Lymphocytes % % Fluid Eosinophils % % Fluid Meso/Macro/[place] % % Fluid Comment Pleural Fluid Source Pleural Color Pleural Appearance Pleural pH (7.3-7.4) Pleural WBC (Auto) /uL Pleural RBC (Auto) /uL Pleural Total Protein gm/dl Pleural LDH U/L Pleural Glucose mg/dl Pleural Amylase U/L Pleural Cholesterol Pending 07/28/22 07/28/22 07/28/22 Range/Units 13:56 13:56 13:56 WBC (4.8-10.8) K/ul RBC (4.63-6.08) M/uL Hgb (14.0-18.0) g/dl Hct (40.1-51.0) % MCV (80.0-100.0) fL MCH (25.0-34.0) pg MCHC (32.0-36.0) g/dL RDW Std Deviation (36.4-46.3) fL RDW Coeff of Timbo (11.5-14.5) % Plt Count (130-400) K/uL MPV (9.4-12.4) fL Immature Gran % (Auto) % Neut % (Auto) % Lymph % (Auto) % [place] % (Auto) % Eos % (Auto) % Baso % (Auto) % Neut # (Auto) (1.4-6.5) K/uL Lymph # (Auto) (1.2-3.4) K/uL [place] # (Auto) (0.24-0.82) K/uL Eos # (Auto) (0-0.50) K/uL Baso # (Auto) (0-0.2) K/uL Immature Gran # (Auto) (0.00-0.02) K/uL Polychromasia Hypochromasia Sodium (136-145) mmol/L Potassium (3.5-5.1) mmol/L Chloride (98-107) mmol/L Carbon Dioxide (21-32) mmol/L Anion Gap (3-11) BUN (6-23) mg/dl Creatinine (0.6-1.4) mg/dl Est Cr Clr Drug Dosing ml/min Est GFR ( Amer) ml/min Est GFR (Non-Af Amer) ml/min BUN/Creatinine Ratio (10-20) Glucose (70-99(Fasting)) mg/dl Calcium (8.5-10.1) mg/dl Magnesium (1.7-2.4) mg/dl Iron (35-175) mcg/dl TIBC (250-450) mcg/dl Unsaturated IBC (155-355) mcg/dl Transferrin % Sat (20-50) % Ferritin (8-388) ng/ml Total Bilirubin (0.2-1.0) mg/dl Lactate Dehydrogenase (86-244) U/L Total Protein (6.0-8.3) gm/dl Albumin (3.4-5.0) gm/dl Procalcitonin (0-0.5) ng/ml TSH (0.300-4.500) uIu/ml Fluid Neutrophils % 48 % Fluid Lymphocytes % 24 % Fluid Eosinophils % 1 % Fluid Meso/Macro/[place] % 27 % Fluid Comment Pleural Fluid Source Left Lung Pleural Color Pale Yellow Pleural Appearance Hazy Pleural pH 7.47 H (7.3-7.4) Pleural WBC (Auto) 301 /uL Pleural RBC (Auto) 3000 /uL Pleural Total Protein < 3.0 gm/dl Pleural LDH 65 U/L Pleural Glucose 115 mg/dl Pleural Amylase 20 U/L Pleural Cholesterol 07/28/22 07/28/22 07/28/22 Range/Units 08:24 08:24 08:24 WBC (4.8-10.8) K/ul RBC (4.63-6.08) M/uL Hgb (14.0-18.0) g/dl Hct (40.1-51.0) % MCV (80.0-100.0) fL MCH (25.0-34.0) pg MCHC (32.0-36.0) g/dL RDW Std Deviation (36.4-46.3) fL RDW Coeff of Timbo (11.5-14.5) % Plt Count (130-400) K/uL MPV (9.4-12.4) fL Immature Gran % (Auto) % Neut % (Auto) % Lymph % (Auto) % [place] % (Auto) % Eos % (Auto) % Baso % (Auto) % Neut # (Auto) (1.4-6.5) K/uL Lymph # (Auto) (1.2-3.4) K/uL [place] # (Auto) (0.24-0.82) K/uL Eos # (Auto) (0-0.50) K/uL Baso # (Auto) (0-0.2) K/uL Immature Gran # (Auto) (0.00-0.02) K/uL Polychromasia Hypochromasia Sodium 136 (136-145) mmol/L Potassium 3.9 (3.5-5.1) mmol/L Chloride 100 (98-107) mmol/L Carbon Dioxide 29 (21-32) mmol/L Anion Gap 7 (3-11) BUN 21 (6-23) mg/dl Creatinine 0.71 (0.6-1.4) mg/dl Est Cr Clr Drug Dosing 98.9 ml/min Est GFR ( Amer) 109.4 ml/min Est GFR (Non-Af Amer) 94.4 ml/min BUN/Creatinine Ratio 29.6 H (10-20) Glucose 109 H (70-99(Fasting)) mg/dl Calcium 8.6 (8.5-10.1) mg/dl Magnesium 1.7 1.6 L (1.7-2.4) mg/dl Iron 15 L (35-175) mcg/dl TIBC 192 L (250-450) mcg/dl Unsaturated IBC 177 (155-355) mcg/dl Transferrin % Sat 8 L (20-50) % Ferritin 332.3 (8-388) ng/ml Total Bilirubin (0.2-1.0) mg/dl Lactate Dehydrogenase (86-244) U/L Total Protein (6.0-8.3) gm/dl Albumin (3.4-5.0) gm/dl Procalcitonin (0-0.5) ng/ml TSH (0.300-4.500) uIu/ml Fluid Neutrophils % % Fluid Lymphocytes % % Fluid Eosinophils % % Fluid Meso/Macro/[place] % % Fluid Comment Pleural Fluid Source Pleural Color Pleural Appearance Pleural pH (7.3-7.4) Pleural WBC (Auto) /uL Pleural RBC (Auto) /uL Pleural Total Protein gm/dl Pleural LDH U/L Pleural Glucose mg/dl Pleural Amylase U/L Pleural Cholesterol 07/28/22 07/28/22 Range/Units 08:24 08:24 WBC 9.88 (4.8-10.8) K/ul RBC 3.64 L (4.63-6.08) M/uL Hgb 8.8 L (14.0-18.0) g/dl Hct 28.8 L (40.1-51.0) % MCV 79.1 L (80.0-100.0) fL MCH 24.2 L (25.0-34.0) pg MCHC 30.6 L (32.0-36.0) g/dL RDW Std Deviation 50.8 H (36.4-46.3) fL RDW Coeff of Timbo 17.9 H (11.5-14.5) % Plt Count 479 H (130-400) K/uL MPV 8.6 L (9.4-12.4) fL Immature Gran % (Auto) 0.3 % Neut % (Auto) 80.3 % Lymph % (Auto) 8.7 % [place] % (Auto) 9.5 % Eos % (Auto) 0.8 % Baso % (Auto) 0.4 % Neut # (Auto) 7.93 H (1.4-6.5) K/uL Lymph # (Auto) 0.86 L (1.2-3.4) K/uL [place] # (Auto) 0.94 H (0.24-0.82) K/uL Eos # (Auto) 0.08 (0-0.50) K/uL Baso # (Auto) 0.04 (0-0.2) K/uL Immature Gran # (Auto) 0.03 H (0.00-0.02) K/uL Polychromasia Hypochromasia Sodium (136-145) mmol/L Potassium (3.5-5.1) mmol/L Chloride (98-107) mmol/L Carbon Dioxide (21-32) mmol/L Anion Gap (3-11) BUN (6-23) mg/dl Creatinine (0.6-1.4) mg/dl Est Cr Clr Drug Dosing ml/min Est GFR ( Amer) ml/min Est GFR (Non-Af Amer) ml/min BUN/Creatinine Ratio (10-20) Glucose (70-99(Fasting)) mg/dl Calcium (8.5-10.1) mg/dl Magnesium (1.7-2.4) mg/dl Iron (35-175) mcg/dl TIBC (250-450) mcg/dl Unsaturated IBC (155-355) mcg/dl Transferrin % Sat (20-50) % Ferritin (8-388) ng/ml Total Bilirubin (0.2-1.0) mg/dl Lactate Dehydrogenase (86-244) U/L Total Protein (6.0-8.3) gm/dl Albumin (3.4-5.0) gm/dl Procalcitonin 0.15 (0-0.5) ng/ml TSH (0.300-4.500) uIu/ml Fluid Neutrophils % % Fluid Lymphocytes % % Fluid Eosinophils % % Fluid Meso/Macro/[place] % % Fluid Comment Pleural Fluid Source Pleural Color Pleural Appearance Pleural pH (7.3-7.4) Pleural WBC (Auto) /uL Pleural RBC (Auto) /uL Pleural Total Protein gm/dl Pleural LDH U/L Pleural Glucose mg/dl Pleural Amylase U/L Pleural Cholesterol PG Care Time/CCT Total # of Minutes Spent Total Time Spent with Patient: Total time spent is greater than 50% in coordination of care (as documented) at patient's floor/unit and/or counseling patient: Coding Level of Care Code 37804 Subseq Hosp Care Lvl 3 Diagnoses Acute respiratory failure with hypoxia J96.01 Bilateral pleural effusion J90 CAD (coronary artery disease) I25.10 Pulmonary hypertension I27.20 Anemia D64.9 Anemia type: unspecified type Status post reverse total replacement of right shoulder Z96.611 Peripheral arterial disease I73.9 Esophageal varices I85.00 (1) Anemia Anemia type: unspecified type Qualified Code(s): D64.9 - Anemia, unspecified
[2022-07-29] MEDS ORDERED: FUROSEMIDE 40 MG/4 ML VIAL IV ONE (08:18)
--- NOTE | 2022-07-29 08:20 | Pulmonology Progress Note ---
Date of Service July 29, 2022 Assessment & Plan (1) Acute respiratory failure with hypoxia: (2) Bilateral pleural effusion: (3) Pulmonary edema: Chronicity: chronic Qualified Code(s): J81.1 - Chronic pulmonary edema (4) Shortness of breath: (5) (HFpEF) heart failure with preserved ejection fraction: Plan Chest x-ray 07/28/2022 personally reviewed: Portable film, mediastinal shift to the right with volume loss of the right lung, increased pulmonary vascular congestion with bilateral blunting of costophrenic angle. --Acute respiratory failure with hypoxia Secondary to pulmonary edema with bilateral pleural effusion Etiology is underlying diastolic CHF Last thoracentesis was performed by Shade Cortez on 07/07/2022, cytology was negative, culture was negative S/p thoracentesis 07/28/2022, 1650 cloudy serous fluid removed Covid-19 NAAT negative BNP 62 Procalcitonin 2D echo 11/25/2021: EF 65-70%, grade 1 diastolic dysfunction, mild concentric LVH, right ventricle not visualized --Bilateral pleural effusion Likely from underlying HFpEF Right sided pleural effusion has a lot of loculations and fibrin strands Plan: Chest x-ray from today shows improvement in aeration bilaterally. No reaccumulation of fluid in the left side. His hemoglobin is trending down. Repeat chest x-ray in the morning Try to keep O2 saturation between 88-92% Case was discussed with Mariaa Baxter Please note the above document was generated using voice recognition software. It may contain grammatical, syntax or spelling errors.Any formal questions or concerns about the content, text or information contained within the body of this dictation should be directly addressed to the provider for clarification. Admission and Anticipated Discharge Date Admission Date: July 26, 2022 Subjective Patient seen and examined at bedside. No acute distress. Overnight patient went into A. fib and was sent to PCU At the time of examination patient was saturating 97-98% on 5 L nasal cannula. I was able to go down to 2 L Overall he says he is feeling better. Denies any chest pain, shortness of breath significantly improved. He is urinating well. Review of Systems Review of Systems: All systems reviewed & are unremarkable except as noted in Subjective Physical Exam Physical Exam: Constitutional: Respiratory distress HEENT: EOMI, PERRLA Respiratory system: Decreased air entry bilaterally, no wheeze, no rhonchi, positive crackles bilateral lower lobes CVS: S1-S2 positive, no murmurs or gallops Abdomen: Soft, nontender, nondistended, positive bowel sounds x4 Extremities: +2 pulses bilaterally radialis/ dorsalis pedis, no cyanosis, no edema, gangrene of the toes appreciated in bilateral feet Neuro: Awake alert oriented x3 Psych: Normal mood and affect G/U: No Rodriguez Skin: no rashes, warm and dry Lymphatic: no cervical or axillary lymphadenopathy Results & Data Results & Data ([facility]) Vital Signs (Past 12 Hours) Vital Signs Temp Pulse Pulse Pulse Resp BP Pulse Ox 07/29/22 08:00 37.0 C 97 H 18 121/72 99 07/29/22 03:41 36.5 C 91 H 14 122/72 92 07/28/22 23:52 95 H 07/28/22 23:26 37.2 C 89 12 97/61 L 99 07/28/22 22:16 105 H 07/28/22 21:55 07/28/22 21:46 37.2 C 108 H 22 110/69 96 07/28/22 20:30 37.2 C 146 H 20 122/73 95 O2 Del Method O2 Flow Rate 07/29/22 08:00 Nasal Cannula 4.0 07/29/22 03:41 Nasal Cannula 4 07/28/22 23:52 07/28/22 23:26 Nasal Cannula 4 07/28/22 22:16 07/28/22 21:55 Nasal Cannula 4 07/28/22 21:46 Nasal Cannula 4 07/28/22 20:30 Nasal Cannula 2 Laboratory Results 07/29/22 05:48 07/29/22 05:48 PG Care Time/CCT Total # of Minutes Spent Total Time Spent with Patient: Total time spent is greater than 50% in coordination of care (as documented) at patient's floor/unit and/or counseling patient: Coding Level of Care Code 94132 Subseq Hosp Care Lvl 2 Diagnoses Acute respiratory failure with hypoxia J96.01 Bilateral pleural effusion J90 Pulmonary edema J81.1 Chronicity: chronic Shortness of breath R06.02 (HFpEF) heart failure with preserved ejection fraction I50.30
[2022-07-29] MEDS ORDERED: IRON SUCROSE 300 MG in SODIUM CHLORIDE 0.9% 250 ML IV ONE (08:30)
[2022-07-29] MEDS: SULFAMETHOXAZOLE/TRIMETHOPRIM DS 800/160MG TAB PO SCH ×2 (08:57→20:42)
[2022-07-29] MEDS: CLOPIDOGREL BISULFATE 75 MG TAB PO SCH (08:57)
[2022-07-29] MEDS: FERROUS SULFATE 325 MG TAB PO SCH (08:58)
[2022-07-29] MEDS: PANTOprazole 40 MG TAB PO SCH (08:58)
[2022-07-29] MEDS: MULTIVITAMIN TAB PO SCH (08:58)
[2022-07-29] MEDS: SENNA 8.6 MG TAB PO SCH ×2 (08:58→20:42)
[2022-07-29] MEDS: ASPIRIN 81 MG ECTAB PO SCH (08:58)
[2022-07-29] MEDS: METOPROLOL TARTRATE 25 MG TAB PO SCH ×2 (08:58→20:42)
[2022-07-29] MEDS: ATORVASTATIN 40 MG TAB PO SCH (08:59)
[2022-07-29] MEDS: BRIMONIDINE TARTRATE 0.2% 5ML OP SCH ×2 (09:00→20:44)
[2022-07-29] MEDS: POTASSIUM CHLORIDE 20 MEQ/15 ML UDC PO SCH (09:00)
[2022-07-29] MEDS ORDERED: FUROSEMIDE 20 MG TAB PO SCH (09:00)
[2022-07-29] MEDS: DOCUSATE SODIUM 100 MG CAP PO SCH ×2 (09:00→22:34)
[2022-07-29] MEDS: GABAPENTIN 400 MG CAP PO SCH ×3 (09:00→20:43)
[2022-07-29] MEDS: buPROPion HCl 100 MG TABLET PO SCH ×2 (09:00→20:43)
[2022-07-29] MEDS: prednisoLONE acetate 1% OP SUSP 5 ML BTL OP SCH ×3 (09:01→20:47)
[2022-07-29] MEDS: DORZOLAMIDE/TIMOLOL 22.3/6.8MG/ML 10 ML BTL OP SCH ×3 (09:01→20:47)
[2022-07-29] MEDS: FLUTICASONE/VILANTEROL 100/25MCG 14 PUFFS/INHALER INH SCH (11:00)
[2022-07-29 11:31] LABS: Hematocrit (blood only) 23.6 % (40.1-51.0); Hemoglobin 7.2 g/dl (14.0-18.0)
[2022-07-29] MEDS ORDERED: SODIUM CHLORIDE 0.9% 250 ML IV PRN (13:15)
[2022-07-29] MEDS ORDERED: POTASSIUM CHLORIDE CRTAB 20 MEQ TABCR PO STA (13:46)
[2022-07-29] MEDS ORDERED: POTASSIUM CHLORIDE CRTAB 20 MEQ TABCR PO SCH (13:46)
[2022-07-29] MEDS ORDERED: FUROSEMIDE 40 MG TAB PO ONE (13:46)
--- NOTE | 2022-07-29 14:39 | Orthopedic Progress Note ---
Date of Service July 29, 2022 Assessment & Plan (1) Status post reverse total replacement of right shoulder: Unfortunately he still having some issues with his hypoxia. He is currently on 2 L by nasal cannula. He is not having any pain in the right shoulder. He is wearing his arm sling as instructed. He has been seen by pulmonology he had the hospitalist. He was a little bit anemic today and he will be receiving 1 unit of packed red blood cells. I will continue to follow him closely. Eran Amin was seen and examined at bedside this morning. Unfortunately he is still struggling some. He is on 2 L of oxygen. He is little bit anemic today. He is not having much pain in his shoulder. He has no other complaints. . Review of Systems All systems reviewed & are unremarkable except as noted in HPI & below. Physical Exam On physical examination of the right shoulder, the dressing is clean and dry. He is wearing his sling as instructed. He has active motion of his hand and his wrist. . Results & Data Results & Data Laboratory Results . Diagnostic Findings . PG Care Time/CCT Total # of Minutes Spent Total Time Spent with Patient: Total time spent is greater than 50% in coordination of care (as documented) at patient's floor/unit and/or counseling patient: Coding Level of Care Code 76893 Post Operative Follow-Up Diagnoses Status post reverse total replacement of right shoulder Z96.611
--- NOTE | 2022-07-29 14:40 | Cardiology Consultation ---
Date of Consultation July 29, 2022 Assessment & Plan (1) (HFpEF) heart failure with preserved ejection fraction: (2) CAD (coronary artery disease): (3) Atrial flutter, paroxysmal: Plan 1. Diastolic heart failure: Has presumed diastolic heart based on recurrent pleural effusions. The right pleural effusion appears to be fairly chronic and is known to be loculated with fibrinous material in the pleural space as well. BNP was actually quite low at the time admission suggesting relatively good compensation. Perhaps he received some significant volume administration in the perioperative period. His outpatient medical regimen includes Lasix 20 mg daily. While he is an inpatient could receive intravenous Lasix. He received 40 mg intravenously today. This can be repeated tomorrow. We will need to watch his electrolytes and renal function closely. For poorly controlled pulmonary edema or recurrent pleural effusions Jardiance could also be added to his medical regimen. 2. Atrial flutter: I think this is the best description of the arrhythmia captured on EKG last evening. He was minimally symptomatic. He is known to have a history of an atypical atrial flutter. In the past there has been an unclear frequency of atrial arrhythmia. He reports monitoring his heart rate and pulse fairly regularly at home and has not noticed any elevations. I do not think he requires an alteration in his medical regimen with the exception of anticoagulation. He certainly has risk factors for stroke. This appears to have been addressed in the past and he has not consented to systemic anticoagulation. There was some concern currently about bleeding as his hemoglobin has dropped and he is getting a transfusion. We can defer anticoagulation currently. 3. Coronary disease: He was felt to have nonobstructive coronary disease on his last catheterization. He did not endorse symptoms of angina or coronary insufficiency recently. Cardiac biomarkers have been normal. At this point will simply continue aggressive risk factor modification with a daily aspirin and high-dose atorvastatin. If systemic anticoagulation is started, aspirin should be discontinued. History of Present Illness Reason for Consultation: Atrial flutter Requesting Physician: Vee Attending Physician: Yoel Ding DO History of Present Illness The patient is a 71-year-old gentleman with a history of nonobstructive coronary artery disease, peripheral vascular disease and atrial flutter who underwent an elective right shoulder surgery on 07/26/2022. Prior to his surgery the patient had been evaluated for right-sided pleural effusion and did undergo tho racentesis earlier in June. In the postoperative. He developed significant hypoxia and had an additional thoracentesis of a pleural effusion. Last evening the patient was noted to have an episode of a rapid ventricular rate which resolved spontaneously. The patient was unaware of any palpitations. He does report some mild chest discomfort this morning but this is fairly localized to the left lateral chest wall. It does appear to be somewhat worse with deep inspiration. With normal respiration and rest it is not present at all. He did not report chest discomfort last evening. His breathing has improved significantly today subsequent to the thoracentesis yesterday. In generally ambulates with crutches. He is very sedentary but is able to do some mild yd work in ambulate around his residence. He generally does not report symptoms of limiting dyspnea or chest discomfort. He previously had symptoms of mild orthostasis but these appear to have resolved recently. No other dizziness or lightheadedness. No history of palpitation. Allergies Allergy/AdvReac Type Severity Reaction Status Date / Time No Known Allergies Allergy Unknown Verified 07/20/22 10:41 Home Medications Medication Instructions Recorded Confirmed Type tamsulosin 0.4 mg capsule (Flomax) 0.4 mg PO QPM 01/10/19 07/20/22 History pantoprazole 40 mg tablet,delayed 40 mg PO QAM 08/01/20 07/07/22 History release multivitamin 1 tab PO QAM 10/05/20 07/20/22 History omega 8-kqe-vuf-fish oil 1,200 mg 1 cap PO QAM 10/05/20 07/07/22 History (144 mg-216 mg) capsule (Fish Oil) trazodone 150 mg tablet 150 mg PO HS 10/05/20 07/20/22 History cholecalciferol (vitamin D3) 50 50 mcg PO QAM 10/16/20 07/20/22 History mcg (2,000 unit) capsule lidocaine 5 % topical patch 1 patch topical DAILY PRN Pain 10/16/20 07/20/22 History (Lidoderm) metoprolol tartrate 50 mg tablet 25 mg PO BID 01/16/21 07/20/22 History glucosamine-chondroitin 250 mg-200 1 tab PO BID 07/03/21 07/07/22 History mg tablet (Osteo Bi-Flex) atorvastatin 40 mg tablet 40 mg PO QAM 07/29/21 07/20/22 History fluticasone furoate 100 1 inh inhalation BID 07/29/21 07/20/22 History mcg-vilanterol 25 mcg/dose inhalation powder (Breo Ellipta) ferrous sulfate 325 mg (65 mg 325 mg PO QAM 11/09/21 07/20/22 History iron) tablet brimonidine 0.2 % eye drops 1 drp ophthalmic (eye) BID #1 btl 11/26/21 07/20/22 Rx dorzolamide 22.3 mg-timolol 6.8 1 drp ophthalmic (eye) TID #1 btl 11/26/21 07/20/22 Rx mg/mL eye drops latanoprost 0.005 % eye drops 1 drp ophthalmic (eye) HS #1 btl 11/26/21 07/20/22 Rx prednisolone acetate 1 % eye 1 drp ophthalmic (eye) TID #1 btl 11/26/21 07/20/22 Rx drops,suspension sulfamethoxazole 800 1 tab PO Q12H MRSA wound Left Hip 11/26/21 07/07/22 Rx mg-trimethoprim 160 mg tablet #0 tabs (Bactrim DS) food supplemt, lactose-reduced 1 ea PO TID 12/16/21 07/20/22 History 0.05 gram-1.5 kcal/mL oral liquid (Ensure Plus) gauze bandage 4" X 4" (Curad Gauze 12/16/21 06/24/22 History Pad) povidone-iodine 10 % topical 1 applic topical DAILY 12/16/21 07/20/22 History solution HEEL LIFTS #1 ea 12/22/21 06/24/22 Rx albuterol sulfate 90 mcg/actuation 2 puff inhalation BID PRN 03/08/22 07/20/22 History aerosol inhaler Shortness Of Breath Or Wheezing gabapentin 400 mg capsule 400 mg PO TID #270 caps 03/17/22 07/20/22 Rx bupropion HCl 100 mg tablet 200 mg PO BID 05/25/22 07/20/22 History furosemide 40 mg tablet (Lasix) 20 mg PO QAM 05/25/22 07/20/22 History methocarbamol 500 mg tablet 500 mg PO TID PRN MUSCLE RELAXANT 05/25/22 07/20/22 History potassium chloride 20 mEq/15 mL See Rx Instructions .Route .COMPLEX 05/25/22 07/20/22 History oral liquid sennosides 8.6 mg tablet 8.6 mg PO DAILY 05/25/22 07/20/22 History metolazone 5 mg tablet 5 mg PO DAILY PRN edema #30 tabs 05/26/22 07/20/22 Rx hydrocodone 5 mg-acetaminophen 325 1 tab PO TID PRN Pain 06/18/22 07/20/22 History mg tablet aspirin 81 mg tablet 81 mg PO DAILY 07/02/22 07/20/22 History oxycodone-acetaminophen 5 mg-325 1 tab PO Q6H PRN pain #60 tabs 07/21/22 Rx mg tablet (Percocet) terbinafine HCl 250 mg tablet 250 mg PO DAILY #30 tabs 07/26/22 Rx Patient History Medical History (Updated 07/29/22 @ 14:48 by Woody Bolton MD) Anemia Anxiety Stable/controlled per pt Follows with [place] [facility] Atrial flutter, paroxysmal Per cardio visit 04/21/22, "We remain uncertain as to his atrial fibrillation burden and he continues to prefer a conservative approach meaning no further monitoring and no anticoagulation." Chronic back pain Chronic hypoxemic respiratory failure Follows with [facility], previously on supplementation oxygen (has not had for several months) Chronic osteomyelitis of hip Bactrim ppx Chronic ulcer of great toe Follows with [place] [facility] COVID-19 virus infection 08/2020 > Covid PNA, acute respiratory failure with hypoxia requiring BiPAP, also hospitalized 09/2020 with B/L pleural effusion and differential including potential correlation to recent COVID illness Degeneration of cervical intervertebral disc Depression Stable/controlled per pt Follows with [place] [facility] Glaucoma Hearing deficit Hearing aid (left) Heart failure Diastolic Follows with ([facility]/Dr. Sheffield) History of blood transfusion [id number] (with multiple hip surgeries) Hx MRSA infection Left hip since 2009, Chronic/[facility] bactrim daily Hyperlipidemia Hypokalemia Leg length discrepancy RLE > LLE s/p multiple left hip revisions (per patient, missing hip joint) due to complications from hip surgery/revisions/MRSA infection- on chronic preventative Bactrim-- uses shoe with elevated heel/crutches Osteoarthritis Osteoporosis Peptic ulcer disease 2018 Pleural effusion Recurrent (most recent need for drainage several months ago) Pneumonia Recent hospitalization 04/2022 PNA/pleural effusion ([facility]) Pulmonary hypertension Restless leg syndrome Transient ischemic attack (TIA) ~2015 Surgical History (Updated 07/20/22 @ 14:41 by Yoel Ding DO) H/O eye surgery 2 DRAINAGE TUBES RT/LEFT EYES FOR GLAUCOMA currently in place Retinal lift and cadaver placement week of 08/03/2021 in [place] History of bilateral cataract extraction History of cardiac cath 01/2021 [facility]: "Medical management of moderate to severe CAD" NO STENTS History of colonoscopy History of esophagogastroduodenoscopy (EGD) History of hip surgery LEFT HIP SURGERY/REVISIONS (TOTAL OF 9 SURGERIES) History of laminectomy L3-L5 laminectomy: 05/12/15: Grade view 1, MAC#3, ETT 8.0 (atraumatic DL x 1) at [facility] History of thoracentesis 04/2022 [facility] History of tonsillectomy and adenoidectomy History of tooth extraction Status post reverse total arthroplasty of left shoulder 07/03/2019: Grade 1 view, MAC#3, ETT#8.0, atraumatic x 1 + PNB. Family History Father , about age 60 Cerebral aneurysm Mother No pertinent past medical history Grandmother (Maternal) Myocardial infarction Denies family history of Ovarian cancer Prostate cancer Crohn's disease Breast cancer Colorectal cancer Ulcerative colitis Social History Smoking Status: Former smoker Tobacco Type: Smokeless Tobacco (Dip or Chew) Age Started Using Tobacco: 15; packs per day: 1.5; Cigarettes Per Day: 1 ppd over 20yrs ago; Smoking End Date: Quit 20 years ago (hx 1 PPD); Second Hand Exposure: No; Do You Dip or Chew Tobacco: No (Quit 6 months ago); Tobacco Cessation Education Requested by Patient: No Hx Alcohol Use: No Hx Substance Use: Yes Last Used Substance Other:: hx medical marijuana card- does not currently use- last use 1 yr ago Preferred Language: Azeri Communication Ability: Effective Visual Impairment: No Limitations Hearing Ability: Normal Tenter Frame Operator Required: No Beliefs That Will Affect Care: None marital status: Current Living Situation: Spouse current occupational status: retired 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 Patient has not been ambulatory since surgery. Physical Exam Physical Exam: The patient is alert and oriented. Mood and affect appeared normal. He answered all questions appropriately. HEENT: Pupils are equal and reactive to light and accommodation. Extraocular movements are intact. The sclerae are anicteric. Neuro: Cranial nerves intact Right arm in a sling. Lungs: Reduced breath sounds at the right base. No rales. Mild expiratory wheezing. Normal respiratory effort. Cardiac: Heart demonstrates a regular rate and rhythm. Normal S1 and S2. No murmurs on examination. Pulses: The patient has palpable radial pulses bilaterally that are equal in intensity Extremities: There was no evidence of hypoperfusion. There is no cyanosis or clubbing. There is no edema. Trophic changes on both lower extremities with gangrenous toes. No palpable dorsalis pedis or posterior tibial pulses. Skin: I did not appreciate any rashes on examination today. Results & Data ([facility]) Vital Signs (Past 12 Hours) Vital Signs Temp Pulse Pulse Resp BP Pulse Ox O2 Del Method 07/29/22 13:00 36.8 C 79 17 107/66 94 Nasal Cannula 07/29/22 08:00 37.0 C 97 H 18 121/72 99 Nasal Cannula 07/29/22 03:41 36.5 C 91 H 14 122/72 92 Nasal Cannula O2 Flow Rate 07/29/22 13:00 2.0 07/29/22 08:00 4.0 07/29/22 03:41 4 Laboratory Results Abnormal Lab Results 07/28/22 07/28/22 07/28/22 13:56 13:56 14:19 WBC RBC Hgb Hct MCV MCH MCHC RDW Std Deviation RDW Coeff of Timbo Plt Count MPV Immature Gran % (Auto) Neut % (Auto) Lymph % (Auto) [place] % (Auto) Eos % (Auto) Baso % (Auto) Neut # (Auto) Lymph # (Auto) [place] # (Auto) Eos # (Auto) Baso # (Auto) Immature Gran # (Auto) Polychromasia Hypochromasia Sodium Potassium Chloride Carbon Dioxide Anion Gap BUN Creatinine Est Cr Clr Drug Dosing Est GFR ( Amer) Est GFR (Non-Af Amer) BUN/Creatinine Ratio Glucose Calcium Magnesium Total Bilirubin 0.4 Lactate Dehydrogenase Total Protein 7.2 Albumin 2.8 L TSH Fluid Neutrophils % 48 Fluid Lymphocytes % 24 Fluid Eosinophils % 1 Fluid Meso/Macro/[place] % 27 Pleural Fluid Source Left Lung Pleural Color Pale Yellow Pleural Appearance Hazy Pleural WBC (Auto) 301 Pleural RBC (Auto) 3000 Pleural Total Protein < 3.0 Pleural LDH 65 Pleural Glucose 115 Pleural Amylase 20 Crossmatch 07/28/22 07/29/22 07/29/22 14:19 05:48 05:48 WBC 7.94 RBC 3.20 L Hgb 7.6 L Hct 25.3 L MCV 79.1 L MCH 23.8 L MCHC 30.0 L RDW Std Deviation 50.6 H RDW Coeff of Timbo 17.8 H Plt Count 399 MPV 8.8 L Immature Gran % (Auto) 0.3 Neut % (Auto) 73.7 Lymph % (Auto) 12.8 [place] % (Auto) 11.5 Eos % (Auto) 1.3 Baso % (Auto) 0.4 Neut # (Auto) 5.86 Lymph # (Auto) 1.02 L [place] # (Auto) 0.91 H Eos # (Auto) 0.10 Baso # (Auto) 0.03 Immature Gran # (Auto) 0.02 Polychromasia 1+ Hypochromasia Present Sodium 135 L Potassium 3.7 Chloride 98 Carbon Dioxide 32 Anion Gap 5 BUN 24 H Creatinine 0.62 Est Cr Clr Drug Dosing 104.5 Est GFR ( Amer) 115.7 Est GFR (Non-Af Amer) 99.8 BUN/Creatinine Ratio 38.7 H Glucose 114 H Calcium 8.2 L Magnesium 2.2 Total Bilirubin Lactate Dehydrogenase 139 Total Protein Albumin TSH Fluid Neutrophils % Fluid Lymphocytes % Fluid Eosinophils % Fluid Meso/Macro/[place] % Pleural Fluid Source Pleural Color Pleural Appearance Pleural WBC (Auto) Pleural RBC (Auto) Pleural Total Protein Pleural LDH Pleural Glucose Pleural Amylase Crossmatch 07/29/22 07/29/22 07/29/22 05:48 11:16 14:02 WBC RBC Hgb 7.2 L Hct 23.6 L MCV MCH MCHC RDW Std Deviation RDW Coeff of Timbo Plt Count MPV Immature Gran % (Auto) Neut % (Auto) Lymph % (Auto) [place] % (Auto) Eos % (Auto) Baso % (Auto) Neut # (Auto) Lymph # (Auto) [place] # (Auto) Eos # (Auto) Baso # (Auto) Immature Gran # (Auto) Polychromasia Hypochromasia Sodium Potassium Chloride Carbon Dioxide Anion Gap BUN Creatinine Est Cr Clr Drug Dosing Est GFR ( Amer) Est GFR (Non-Af Amer) BUN/Creatinine Ratio Glucose Calcium Magnesium Total Bilirubin Lactate Dehydrogenase Total Protein Albumin TSH 1.518 Fluid Neutrophils % Fluid Lymphocytes % Fluid Eosinophils % Fluid Meso/Macro/[place] % Pleural Fluid Source Pleural Color Pleural Appearance Pleural WBC (Auto) Pleural RBC (Auto) Pleural Total Protein Pleural LDH Pleural Glucose Pleural Amylase Crossmatch See Detail Diagnostic Findings Chest x-ray obtained today revealed improved pulmonary edema and small bilateral pleural effusions. Cardiac catheterization performed 02/09/2021: Normal left main, heavily calcified LAD with early 60-70% stenosis. 50% late to mid LAD stenosis. Twenty 30% left circumflex disease, 20 30% right coronary disease. Echocardiogram performed 11/25/2021: Technically limited study with normal LV systolic function. No regional wall motion abnormalities. Mild LVH. Ejection fraction 65-70%. PG Care Time/CCT Total # of Minutes Spent Total Time Spent with Patient: Total time spent is greater than 50% in coordination of care (as documented) at patient's floor/unit and/or counseling patient: Coding Level of Care Code 50144 Initial Inpt Care Lvl 3 Diagnoses (HFpEF) heart failure with preserved ejection fraction I50.30 CAD (coronary artery disease) I25.10 Atrial flutter, paroxysmal I48.92
[2022-07-29] MEDS ORDERED: COUGH DROP (SUGAR FREE) LOZ 24 LOZ/1 BOX BUCCAL ONE (17:21)
--- NOTE | 2022-07-29 19:08 | Electrocardiogram Report ---
Test Reason : Blood Pressure : / mmHG Vent. Rate : 152 BPM Atrial Rate : 152 BPM P-R Int : 000 ms QRS Dur : 090 ms QT Int : 300 ms P-R-T Axes : 000 007 161 degrees QTc Int : 477 ms Atrial flutter with aberrancy versus PVCs Nonspecific ST and T wave abnormality Abnormal ECG When compared with ECG of 28-JUL-2022 01:11, Atrial flutter with 2 to 1 block has replaced Sinus rhythm Vent. rate has increased BY [address] now depressed in Anterior leads Nonspecific T wave abnormality now evident in Inferior leads T wave inversion now evident in Lateral leads Confirmed by Woody Bolton ([id number] on 07/29/2022 7:07:50 PM Referred By: Yoel Ding Confirmed By:Joey Bolton
[2022-07-29] MEDS: HYDROmorphone INJ 0.5 MG/0.5 ML SYR IV PRN (20:36)
[2022-07-29] MEDS: TAMSULOSIN HCL 0.4 MG CAP PO SCH (20:42)
[2022-07-29] MEDS: LATANOPROST 0.005% OP SOLN 2.5 ML BTL OP SCH (20:51)
[2022-07-29] MEDS: traZODone HCL 50 MG TAB PO SCH (22:34)
[2022-07-30] MEDS: oxyCODONE HCL IR 5 MG TAB (IMMEDIATE RELEASE) PO PRN ×3 (01:50→20:58)
[2022-07-30] MEDS: PANTOprazole 40 MG TAB PO SCH ×3 (04:45→21:07)
[2022-07-30] MEDS: ACETAMINOPHEN 500 MG TAB PO SCH ×3 (06:36→21:36)
[2022-07-30] MEDS ORDERED: FUROSEMIDE 40 MG/4 ML VIAL IV ONE (07:44)
--- NOTE | 2022-07-30 07:46 | Hospitalist Progress Note ---
Date of Service July 30, 2022 Assessment & Plan (1) Acute respiratory failure with hypoxia: Plan: This is a 71-year-old male with a history of HFpEF, bilateral pleural effusions, atrial fibrillation, coronary artery disease, peripheral artery disease, hyperlipidemia, anemia, pulmonary hypertension who presented to [facility] for R shoulder replacement on 07/26 and subsequently developed an increasing oxygen requirement, which is primarily suspected to be secondary to pulmonary edema Primary suspicion based on clinical appearance is acute HFpEF / pulmonary edema / worsening of known pleural effusions. VTE a possibility but will await labs; on ASA for post-surgical PPX. PNA is also a possibility Prior ECHO in October w/ normal EF, mild concentric LVH, EF 65-70% Patient had thoracentesis prior to surgery for 500cc with pulmonology -- tr ansudative fluid 06/30 Had been having increased O2 requirements through AM 07/28 from baseline 2-4L (NO O2 at baseline), eventual need for BiPAP overnight to maintain adequate oxygenation VBG unremarkable CXR with cardiomegaly with evidence of congestive failure and pulmonary edema, layering pleural effusion with dependent consolidation, significantly increased compared to 07/07. increased pulmonary vascular congestion w/ b/l blunting costophrenic angle Lasix 40mg IV x2 on 07/28, metolazone 5mg PO x 1 07/28 Pulm consulted, Dr Alvarez s/p thoracentesis for 1650mL cloudy serous fluid 07/28 Was given additional 40mg IV in the evening w/ elevation in HR to 140-160s (patient reports asymptomatic/no increased SOB/CP) and was transferred to telemetry and additional IV mag provided (prior value 1.7, 1gm IV ordered 07/28) and was also provided IVF 250cc for volume contraction suspected however no hypotension noted Converted to NSR overnight of transfer around 2130. TSH 1.5. Remains NSR Cardiology consulted given afib/hx, followed by Dr Sheffield -- agrees w/ IV lasix Lasix 40mg IV daily while inpatient, would rec 40mg PO at d/c Also once bleeding stabilized, rec Xarelto 20mg or eliquis 5mg BID 07/30 CXR w/ progression on the left, right no change Lasix 40mg IV provided this morning, had been given 1u PRBC 07/29 for hgb 7.2 with additional lasix Currently on 2L NC Pulmonary to monitor CXR in AM (of note, [facility] CT chest from Jul 05 notes "small pericardial effusion similar to slightly improved, stable mediastinal adenopathy, ?sarcoid) Hgb on repeat at noon 8.5 from 7.8, holding off further transfusion per discussion unless drops on AM labs/any bleeding (patient denied such) * discussed to give additional 20mg IV lasix this evening Did get dose of IV venofer x1 on 07/29, remains on PO supplementation Will also repeat ECHO for completeness Cardiology seen * agreed lasix 40mg IV daily inpatient, recs 40mg PO at d/c. Also consider xarelto 20mg vs eliquis 5mg BID at d/c once bleeding stable Consulted GI given hx esophageal varicies. Agreed w/ PPI BID -- had increased to BID last evening. No further GI discomfort reported since increased PPI BID Continue to hold plavix for now * Also consultation placed for vascular given PAD, angiography in October and gangrenous toes. Procal 0.15 initially while on consult. No drainage/streaking and had planned outpatient f/u [facility] after re-cooperated from current surgery. Of note, he wanted to go to rehab through [facility] but CM stated not option due to virus there/not covered. Asked provider at [facility] to look into this for me/contact PCP (2) Bilateral pleural effusion: Plan: Bilateral pleural effusions, known. follows w/ [facility] pulmonology s/p thoracentesis with 500cc fluid removal on 06/30/22 on the RIGHT side Was hospitalized in January 2021 for acute CHF for the same -- had thoracentesis at this time too CXR w/ layering effusions, s/p thoracentesis with Dr Alvarez 07/28 Continue diuretics as above, lasix 40mg IV daily (additional 20mg IV for tonight per discussion with pulm) -- cards rec'd 40mg PO lasix at discharge CXR in AM per pulm (3) CAD (coronary artery disease): Plan: CAD/PAD/HLD, paroxysmal afib Catheterization during January 2021 admission with acute CHF -- demonstrated triple-vessel CAD that is currently being managed medically. Follows with Dr Sheffield for hx paroxysmal afib (patient prefer conservative approach no further monitoring/anticoagulation), 2nd degree AV block (had mobitz 1 second degree-AV identified while on BB, but patient back on BB due to CAD), patient declined implantable monitoring in past. Continue ASA 81mg, statin, metoprolol tartrate 25mg BID (?switching to succinate at d/c) Cardiology consulted as above given patient flip afib/flutter and transferred to PCU. Consideration for anticoagulation if patient agreeable with xarelto vs eliquis as above. Would have CM tom check. Would need ASA discontinued in that event and continue anticoagulation/Plavix Keep K~4, Mag ~2 (additional K supplementation with lasix) (4) Pulmonary hypertension: Plan: Pulmonary HTN History noted. Not appreciated on last TTE in 10/2021 Follows with [facility] pulmonology, consulted while inpatient ?sarcoid (5) Anemia: Plan: Chronic iron deficiency anemia with baseline around 9-10 Hgb 8.8 on AM labs, however volume overloaded as above, will monitor. No bleeding reported Iron panel w/ low iron/trans % sat -- Venofer x 1, 1u PRBC 07/29 Hgb stable on repeat w/ dose of lasix for volume overload as above Remains on daily supplementation CBC in AM (6) Status post reverse total replacement of right shoulder: Plan: POD # 10 p Right Reverse Total Shoulder Arthroplasty(Right) with open biceps tenodesis as a distinct and separate procedure (modifier 59)- Yoel Ding, on 07/20 EBL 150cc Pain control/bowel regimen/DVT prophylaxis per primary service Was anticipating discharge 07/27, however see above, developed avcute respiratory failure (7) Peripheral arterial disease: Plan: [facility] [place] [facility] LLE [facility]oplasty with stenting in October this year, does have narrowing/marked stenosis distal superficial femoral artery on duplex in March 19 Plavix held for shoulder surgery, resumed as above but now again on hold for anemia but given anemia/need for PRBC placed back on hold Will need outpatient follow up at discharge, consulted Dr Ochoa while inpatient given appearance and continued inpatient stay/unknown timeline for f/u vascular [facility] (8) Esophageal varices: Plan: hx cirrhosis, ?2nd RILEY, no reported etoh use/abuse however did have B12 deficiency noted esophageal varices on EGD earlier this year with Dr rush, consulted given anemia and GI discomfort. Increased PPI to BID in meantime GI recs continuing PPI BID, no changes to current regimen Plan continued inpatient stay additional diuretics for this evening monitor CXR/labs in AM, PRBC if needed Consulted vascular surgery given PAD/gangrenous toes bilateral feet (reportedly no change/better/worse) Admission and Anticipated Discharge Date Admission Date: July 26, 2022 Supervising Physician Co-Signing Physician Notes PA Supervision Note: I did not personally see / examine the patient today. I verified all vagras points and agree with ANGELY Baxter with the following exceptions and/or additions: Patient's records have been unable to be obtained with regard to peripheral vascular disease. 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 However, given no records to corroborate history and necrotic appearance to toes with absent pulses have consulted Vascular Surgery, duplex scan bilateral LE ordered. Continue antiplatelets and statin. Subjective eval this morning, states feeling ok abdominal discomfort resolved since last evening and increased Protonix to BID. GI agreed w/ such as far as plan, no plans for inpatient scope unless bleeding occurred. No further afib/flutter on monitor hgb still low, discussed with pulm and will repeat h/h around noon, additional 1u PRBC if needed. Patient agreeable. Pain to shoulder stable with meds, but increased at times when moving around in bed due to incontinence issues as condom catheter falling off at times. Was given Lasix this morning given increased fluid on the left on CXR this morning, currently stable on 2L. Eating/drinking without issue, moving his bowels. Continues to deny any bleeding in urine/stool. Planning for [facility] at d/c. He notes that he was preferring going to [facility] in [place] but was told no beds at this time due to COVID. Review of Systems Review of Systems: All systems reviewed & are unremarkable except as noted in HPI & below Physical Exam Physical Exam: General: chronically ill appearing male sitting up in bed, NAD HEENT: head normocephalic, mmm, trachea midline Resp: diminished in bases bilaterally, R>L but increased compared to yesterday, bibasilar crackles, no wheezing, on 2L, no tachypnea CV: RRR, no m/r/g, no pitting edema, pulses decreased but palpable, no calf tenderness GI: +BS/soft/NT ; no Rodriguez MSK/Neuro/Skin: Silver[place] to R shoulder, sling intact, fingers mobile, pulses palpable gangrenous appearance to bilateral toes (unchanged from prior), cool to touch but sensation intact Results & Data Results & Data ([facility]) Vital Signs (Past 12 Hours) Vital Signs Temp Pulse Pulse Pulse Resp BP Pulse Ox 07/30/22 07:06 36.7 C 85 18 123/73 91 07/30/22 05:29 80 07/29/22 20:00 07/30/22 04:39 36.5 C 81 21 130/71 92 07/29/22 22:15 36.7 C 88 18 116/73 95 07/29/22 20:31 36.7 C 92 H 126/76 O2 Del Method O2 Flow Rate 07/30/22 07:06 Nasal Cannula 2 07/30/22 05:29 07/29/22 20:00 Nasal Cannula 3 07/30/22 04:39 Nasal Cannula 3 07/29/22 22:15 Room Air 1 07/29/22 20:31 Nasal Cannula 1 Laboratory Results 07/30/22 07/30/22 07/29/22 Range/Units 07:43 07:43 14:02 WBC 10.48 (4.8-10.8) K/ul RBC 3.11 L (4.63-6.08) M/uL Hgb 7.8 L (14.0-18.0) g/dl Hct 25.6 L (40.1-51.0) % MCV 82.3 (80.0-100.0) fL MCH 25.1 (25.0-34.0) pg MCHC 30.5 L (32.0-36.0) g/dL RDW Std Deviation 56.0 H (36.4-46.3) fL RDW Coeff of Timbo 19.0 H (11.5-14.5) % Plt Count 425 H (130-400) K/uL MPV 9.2 L (9.4-12.4) fL Immature Gran % (Auto) 0.5 % Neut % (Auto) 77.2 % Lymph % (Auto) 9.4 % [place] % (Auto) 10.6 % Eos % (Auto) 2.0 % Baso % (Auto) 0.3 % Neut # (Auto) 8.09 H (1.4-6.5) K/uL Lymph # (Auto) 0.99 L (1.2-3.4) K/uL [place] # (Auto) 1.11 H (0.24-0.82) K/uL Eos # (Auto) 0.21 (0-0.50) K/uL Baso # (Auto) 0.03 (0-0.2) K/uL Immature Gran # (Auto) 0.05 H (0.00-0.02) K/uL RBC Morphology Unremarkable Sodium 135 L (136-145) mmol/L Potassium 3.6 (3.5-5.1) mmol/L Chloride 97 L (98-107) mmol/L Carbon Dioxide 32 (21-32) mmol/L Anion Gap 6 (3-11) BUN 22 (6-23) mg/dl Creatinine 0.65 (0.6-1.4) mg/dl Est Cr Clr Drug Dosing 99.7 ml/min Est GFR ( Amer) 113.4 ml/min Est GFR (Non-Af Amer) 97.9 ml/min BUN/Creatinine Ratio 33.8 H (10-20) Glucose 92 (70-99(Fasting)) mg/dl Calcium 8.6 (8.5-10.1) mg/dl Magnesium 2.0 (1.7-2.4) mg/dl Total Bilirubin 0.3 (0.2-1.0) mg/dl AST 15 (13-39) U/L ALT 13 (7-52) U/L Alkaline Phosphatase 99 (34-104) U/L Total Protein 6.6 (6.0-8.3) gm/dl Albumin 2.6 L (3.4-5.0) gm/dl Globulin 4.0 (2.5-4.0) gm/dl Albumin/Globulin Ratio 0.7 L (0.9-2) Blood Type O Positive Antibody Screen NEGATIVE Crossmatch See Detail 07/29/22 Range/Units 11:16 WBC (4.8-10.8) K/ul RBC (4.63-6.08) M/uL Hgb 7.2 L (14.0-18.0) g/dl Hct 23.6 L (40.1-51.0) % MCV (80.0-100.0) fL MCH (25.0-34.0) pg MCHC (32.0-36.0) g/dL RDW Std Deviation (36.4-46.3) fL RDW Coeff of Timbo (11.5-14.5) % Plt Count (130-400) K/uL MPV (9.4-12.4) fL Immature Gran % (Auto) % Neut % (Auto) % Lymph % (Auto) % [place] % (Auto) % Eos % (Auto) % Baso % (Auto) % Neut # (Auto) (1.4-6.5) K/uL Lymph # (Auto) (1.2-3.4) K/uL [place] # (Auto) (0.24-0.82) K/uL Eos # (Auto) (0-0.50) K/uL Baso # (Auto) (0-0.2) K/uL Immature Gran # (Auto) (0.00-0.02) K/uL RBC Morphology Sodium (136-145) mmol/L Potassium (3.5-5.1) mmol/L Chloride (98-107) mmol/L Carbon Dioxide (21-32) mmol/L Anion Gap (3-11) BUN (6-23) mg/dl Creatinine (0.6-1.4) mg/dl Est Cr Clr Drug Dosing ml/min Est GFR ( Amer) ml/min Est GFR (Non-Af Amer) ml/min BUN/Creatinine Ratio (10-20) Glucose (70-99(Fasting)) mg/dl Calcium (8.5-10.1) mg/dl Magnesium (1.7-2.4) mg/dl Total Bilirubin (0.2-1.0) mg/dl AST (13-39) U/L ALT (7-52) U/L Alkaline Phosphatase (34-104) U/L Total Protein (6.0-8.3) gm/dl Albumin (3.4-5.0) gm/dl Globulin (2.5-4.0) gm/dl Albumin/Globulin Ratio (0.9-2) Blood Type Antibody Screen Crossmatch Diagnostic Findings Chest X-Ray 07/30/22 07:00 XR chest 1V portable CLINICAL HISTORY: f/u COMPARISON STUDY: Chest radiograph July 29, 2022. FINDINGS: Bilateral shoulder arthroplasties are incidentally noted. Old distal right clavicular fracture is present. Old left-sided rib fractures are noted. There is no pneumothorax. Small bilateral pleural effusions persist. Right mid and lower lung airspace opacities are similar to prior exam with right lung volume loss. There is persistent pulmonary edema. IMPRESSION: Persistent pulmonary edema with small bilateral pleural effusions and bibasilar opacities, greater on the right. Stable right lung volume loss, likely chronic. ACT 112: Negative or not required by law. Electronically signed by: Kalyan Martinez M.D. 07/30/2022 8:55 AM PG Care Time/CCT Total # of Minutes Spent Total Time Spent with Patient: Total time spent is greater than 50% in coordination of care (as documented) at patient's floor/unit and/or counseling patient: Coding Level of Care Code 68498 Subseq Hosp Care Lvl 3 Diagnoses Acute respiratory failure with hypoxia J96.01 Bilateral pleural effusion J90 CAD (coronary artery disease) I25.10 Pulmonary hypertension I27.20 Anemia D64.9 Anemia type: unspecified type Status post reverse total replacement of right shoulder Z96.611 Peripheral arterial disease I73.9 Esophageal varices I85.00 (1) Anemia Anemia type: unspecified type Qualified Code(s): D64.9 - Anemia, unspecified
[2022-07-30 08:24] LABS: Basophils # (auto) 0.03 K/uL (0-0.2); Basophils % (auto) 0.3 %; Eosinophils # (auto) 0.21 K/uL (0-0.50); Hematocrit (blood only) 25.6 % (40.1-51.0); Hemoglobin 7.8 g/dl (14.0-18.0); Immature Granulocytes # (auto) 0.05 K/uL (0.00-0.02); Immature Granulocytes % (auto) 0.5 %; Lymphocytes # (auto) 0.99 K/uL (1.2-3.4); Lymphocytes % (auto) 9.4 %; Mean Corpuscular Hemoglobin 25.1 pg (25.0-34.0); Mean Corpuscular Hgb Conc 30.5 g/dL (32.0-36.0); Mean Corpuscular Volume 82.3 fL (80.0-100.0); Mean Platelet Volume 9.2 fL (9.4-12.4); Monocytes # (auto) 1.11 K/uL (0.24-0.82); Monocytes % (auto) 10.6 %; Neutrophils # (auto) 8.09 K/uL (1.4-6.5); Neutrophils % (auto) 77.2 %; Platelet Count 425 K/uL (130-400); Red Blood Count 3.11 M/uL (4.63-6.08); White Blood Count 10.48 K/ul (4.8-10.8)
[2022-07-30] MEDS: ATORVASTATIN 40 MG TAB PO SCH (08:24)
[2022-07-30] MEDS: ASPIRIN 81 MG ECTAB PO SCH (08:24)
[2022-07-30] MEDS: SULFAMETHOXAZOLE/TRIMETHOPRIM DS 800/160MG TAB PO SCH ×2 (08:24→21:07)
[2022-07-30] MEDS: METOPROLOL TARTRATE 25 MG TAB PO SCH ×2 (08:25→21:04)
[2022-07-30] MEDS: buPROPion HCl 100 MG TABLET PO SCH ×2 (08:25→21:04)
[2022-07-30] MEDS: SENNA 8.6 MG TAB PO SCH ×2 (08:25→21:03)
[2022-07-30] MEDS: FERROUS SULFATE 325 MG TAB PO SCH (08:25)
[2022-07-30] MEDS: GABAPENTIN 400 MG CAP PO SCH ×3 (08:25→21:04)
[2022-07-30] MEDS: MULTIVITAMIN TAB PO SCH (08:26)
[2022-07-30] MEDS: prednisoLONE acetate 1% OP SUSP 5 ML BTL OP SCH ×3 (08:26→21:00)
[2022-07-30] MEDS: BRIMONIDINE TARTRATE 0.2% 5ML OP SCH ×2 (08:26→20:59)
[2022-07-30] MEDS: DORZOLAMIDE/TIMOLOL 22.3/6.8MG/ML 10 ML BTL OP SCH ×3 (08:26→21:00)
[2022-07-30] MEDS: POTASSIUM CHLORIDE 20 MEQ/15 ML UDC PO SCH (08:27)
[2022-07-30] MEDS: FLUTICASONE/VILANTEROL 100/25MCG 14 PUFFS/INHALER INH SCH (08:27)
[2022-07-30] MEDS: DOCUSATE SODIUM 100 MG CAP PO SCH ×2 (08:36→21:36)
[2022-07-30 08:47] LABS: Albumin Globulin Ratio 0.7 (0.9-2); Albumin Level 2.6 gm/dl (3.4-5.0); BUN Creatinine Ratio 33.8 (10-20); Bilirubin,Total 0.3 mg/dl (0.2-1.0); Calcium 8.6 mg/dl (8.5-10.1); Creatinine Clr Calc Pharmacy 99.7 ml/min; Est GFR (African American) 113.4 ml/min; Est GFR (Non-African American) 97.9 ml/min; Potassium 3.6 mmol/L (3.5-5.1); Total Protein 6.6 gm/dl (6.0-8.3)
[2022-07-30 08:49] LABS: RBC Morphology Unremarkable
--- NOTE | 2022-07-30 08:57 | XRay Report ---
XR chest 1V portable CLINICAL HISTORY: f/u COMPARISON STUDY: Chest radiograph July 29, 2022. FINDINGS: Bilateral shoulder arthroplasties are incidentally noted. Old distal right clavicular fract ure is present. Old left-sided rib fractures are noted. There is no pneumothorax. Small bilateral ple ural effusions persist. Right mid and lower lung airspace opacities are similar to prior exam with ri ght lung volume loss. There is persistent pulmonary edema. IMPRESSION: Persistent pulmonary edema with small bilateral pleural effusions and bibasilar opacities, greater on the right. Stable right lung volume loss, likely chronic. ACT 112: Negative or not required by law. Electronically signed by: Kalyan Martinez M.D. 07/30/2022 8:55 AM
[2022-07-30] MEDS ORDERED: POTASSIUM CHLORIDE 20 MEQ/15 ML UDC PO STA ×2 (09:25→17:08)
--- NOTE | 2022-07-30 10:46 | Gastrointestinal Consultation ---
Date of Consultation July 30, 2022 Assessment & Plan (1) Anemia: Discussed with hospitalist team that anemia is likely multifactorial given underlying cirrhosis, recent surgery, & volume overload. He has no overt GI bleeding at this time. I agree with the decision to increase his Protonix to 40 mg BID. He had a recent EGD that showed very small varices and has no current evidence to suggest a variceal bleed at present. We would continue to monitor his H/H and monitor for overt bleeding. Should his clinical situation change, we would revise this conservative plan from that point. Supervising Physician Co-Signing Physician Notes I personally evaluated the patient and agree with the findings as documented by Fatuma Galeano, NOBLE Exam: Constitutional: WD/WN, vitals as above General: EOM intact bilaterally Neck: normal visual inspection Respiratory: normal respiratory effort, lungs clear to auscultation Cardiovascular: RRR, no murmur, no edema Gastrointestinal: abdomennormal to inspection, nondistended, soft, nontender, no hepatosplenomegaly Musculoskeletal: no cyanosis, head normal to inspection Skin: no rashes, warm and dry Neurologic: moves all extremities, no asterixis Psychiatric: A and O x3, euthymic affect History of Present Illness Reason for Consultation: Anemia, history of varices Attending Physician: Yoel Ding DO History of Present Illness Patient is a 71 yo male with a complicated medical history. He is currently hospitalized s/p total shoulder replacement. His course has been complicated by additional medical issues including an ongoing osteomyelitis of the hip, bilateral gangrenous toes without pedal/tibial pulses, and more acutely volume overload/diastolic CHF and pleural effusion leading to acute respiratory failure. He is currently saturating at 91% on 2 L NC. He is being followed by the hospitalist team, orthopedic team, cardiology, & pulmonology. GI has been involved due to anemia. Upon review of his chart, he is chronically anemic presumably due to his cirrhosis. His current H/H is at 7.8/25.6. He denies any overt GI bleeding concerning for active bleeding or esophageal variceal bleed. His BP is stable. His last EGD for variceal surveillance showed very small varices (grade 1) and this occurred in September 2021. His current MELD score is 7 and there are no emergent concerns regarding his cirrhosis. He has been seen by our office in the past for cirrhosis, but has been non-compliant with routine care. [facility]. He is s/p thoracentesis for a large pleural effusion during this admission as well. He is resting comfortably in bed. He denies abdominal pain, nausea, vomiting, hematochezia, melena, dysphagia, jaundice. His Protonix dosage was increased by his primary team to 40 mg BID in response to the worsening anemia. Allergies Allergy/AdvReac Type Severity Reaction Status Date / Time No Known Allergies Allergy Unknown Verified 07/20/22 10:41 Home Medications Medication Instructions Recorded Confirmed Type tamsulosin 0.4 mg capsule (Flomax) 0.4 mg PO QPM 01/10/19 07/20/22 History pantoprazole 40 mg tablet,delayed 40 mg PO QAM 08/01/20 07/07/22 History release multivitamin 1 tab PO QAM 10/05/20 07/20/22 History omega 1-ndn-lid-fish oil 1,200 mg 1 cap PO QAM 10/05/20 07/07/22 History (144 mg-216 mg) capsule (Fish Oil) trazodone 150 mg tablet 150 mg PO HS 10/05/20 07/20/22 History cholecalciferol (vitamin D3) 50 50 mcg PO QAM 10/16/20 07/20/22 History mcg (2,000 unit) capsule lidocaine 5 % topical patch 1 patch topical DAILY PRN Pain 10/16/20 07/20/22 History (Lidoderm) metoprolol tartrate 50 mg tablet 25 mg PO BID 01/16/21 07/20/22 History glucosamine-chondroitin 250 mg-200 1 tab PO BID 07/03/21 07/07/22 History mg tablet (Osteo Bi-Flex) atorvastatin 40 mg tablet 40 mg PO QAM 07/29/21 07/20/22 History fluticasone furoate 100 1 inh inhalation BID 07/29/21 07/20/22 History mcg-vilanterol 25 mcg/dose inhalation powder (Breo Ellipta) ferrous sulfate 325 mg (65 mg 325 mg PO QAM 11/09/21 07/20/22 History iron) tablet brimonidine 0.2 % eye drops 1 drp ophthalmic (eye) BID #1 btl 11/26/21 07/20/22 Rx dorzolamide 22.3 mg-timolol 6.8 1 drp ophthalmic (eye) TID #1 btl 11/26/21 07/20/22 Rx mg/mL eye drops latanoprost 0.005 % eye drops 1 drp ophthalmic (eye) HS #1 btl 11/26/21 07/20/22 Rx prednisolone acetate 1 % eye 1 drp ophthalmic (eye) TID #1 btl 11/26/21 07/20/22 Rx drops,suspension sulfamethoxazole 800 1 tab PO Q12H MRSA wound Left Hip 11/26/21 07/07/22 Rx mg-trimethoprim 160 mg tablet #0 tabs (Bactrim DS) food supplemt, lactose-reduced 1 ea PO TID 12/16/21 07/20/22 History 0.05 gram-1.5 kcal/mL oral liquid (Ensure Plus) gauze bandage 4" X 4" (Curad Gauze 12/16/21 06/24/22 History Pad) povidone-iodine 10 % topical 1 applic topical DAILY 12/16/21 07/20/22 History solution HEEL LIFTS #1 ea 12/22/21 06/24/22 Rx albuterol sulfate 90 mcg/actuation 2 puff inhalation BID PRN 03/08/22 07/20/22 History aerosol inhaler Shortness Of Breath Or Wheezing gabapentin 400 mg capsule 400 mg PO TID #270 caps 03/17/22 07/20/22 Rx bupropion HCl 100 mg tablet 200 mg PO BID 05/25/22 07/20/22 History furosemide 40 mg tablet (Lasix) 20 mg PO QAM 05/25/22 07/20/22 History methocarbamol 500 mg tablet 500 mg PO TID PRN MUSCLE RELAXANT 05/25/22 07/20/22 History potassium chloride 20 mEq/15 mL See Rx Instructions .Route .COMPLEX 05/25/22 07/20/22 History oral liquid sennosides 8.6 mg tablet 8.6 mg PO DAILY 05/25/22 07/20/22 History metolazone 5 mg tablet 5 mg PO DAILY PRN edema #30 tabs 05/26/22 07/20/22 Rx hydrocodone 5 mg-acetaminophen 325 1 tab PO TID PRN Pain 06/18/22 07/20/22 History mg tablet aspirin 81 mg tablet 81 mg PO DAILY 07/02/22 07/20/22 History oxycodone-acetaminophen 5 mg-325 1 tab PO Q6H PRN pain #60 tabs 07/21/22 Rx mg tablet (Percocet) terbinafine HCl 250 mg tablet 250 mg PO DAILY #30 tabs 07/26/22 Rx Patient History Medical History Anemia Anxiety Stable/controlled per pt Follows with [facility] Atrial flutter, paroxysmal Per cardio visit 04/21/22, "We remain uncertain as to his atrial fibrillation burden and he continues to prefer a conservative approach meaning no further monitoring and no anticoagulation." Chronic back pain Chronic hypoxemic respiratory failure Follows with [facility], previously on supplementation oxygen (has not had for several months) Chronic osteomyelitis of hip Bactrim ppx Chronic ulcer of great toe Follows with [place] [facility] COVID-19 virus infection 08/2020 > Covid PNA, acute respiratory failure with hypoxia requiring BiPAP, also hospitalized 09/2020 with B/L pleural effusion and differential including potential correlation to recent COVID illness Degeneration of cervical intervertebral disc Depression Stable/controlled per pt Follows with [place] [facility] Glaucoma Hearing deficit Hearing aid (left) Heart failure Diastolic [place] History of blood transfusion [id number] (with multiple hip surgeries) Hx MRSA infection Left hip since 2009, Chronic/senior living bactrim daily Hyperlipidemia Hypokalemia Leg length discrepancy RLE > LLE s/p multiple left hip revisions (per patient, missing hip joint) due to complications from hip surgery/revisions/MRSA infection- on chronic preventative Bactrim-- uses shoe with elevated heel/crutches Osteoarthritis Osteoporosis Peptic ulcer disease 2018 Pleural effusion Recurrent (most recent need for drainage several months ago) Pneumonia Recent hospitalization 04/2022 PNA/pleural effusion ([facility]) Pulmonary hypertension Restless leg syndrome Transient ischemic attack (TIA) ~2014 Surgical History H/O eye surgery 2 DRAINAGE TUBES RT/LEFT EYES FOR GLAUCOMA currently in place Retinal lift and cadaver placement week of 08/03/2021 in [place] History of bilateral cataract extraction History of cardiac cath 01/2021 [facility]: "Medical management of moderate to severe CAD" NO STENTS History of colonoscopy History of esophagogastroduodenoscopy (EGD) History of hip surgery LEFT HIP SURGERY/REVISIONS (TOTAL OF 9 SURGERIES) History of laminectomy L3-L5 laminectomy: 05/12/15: Grade view 1, MAC#3, ETT 8.0 (atraumatic DL x 1) at [facility] History of thoracentesis 04/2022 [facility] History of tonsillectomy and adenoidectomy History of tooth extraction Status post reverse total arthroplasty of left shoulder 07/03/2019: Grade 1 view, MAC#3, ETT#8.0, atraumatic x 1 + PNB. Family History Father , about age 60 Cerebral aneurysm Mother No pertinent past medical history Grandmother (Maternal) Myocardial infarction Denies family history of Ovarian cancer Prostate cancer Crohn's disease Breast cancer Colorectal cancer Ulcerative colitis Social History Smoking Status: Former smoker Tobacco Type: Smokeless Tobacco (Dip or Chew) Age Started Using Tobacco: 15; packs per day: 1.5; Cigarettes Per Day: 1 ppd over 20yrs ago; Smoking End Date: Quit 20 years ago (hx 1 PPD); Second Hand Exposure: No; Do You Dip or Chew Tobacco: No (Quit 6 months ago); Tobacco Cessation Education Requested by Patient: No Hx Alcohol Use: No Hx Substance Use: Yes Last Used Substance Other:: hx medical marijuana card- does not currently use- last use 1 yr ago Preferred Language: Kinyarwanda Communication Ability: Effective Visual Impairment: No Limitations Hearing Ability: Normal Yoghurt Maker Required: No Beliefs That Will Affect Care: None marital status: Current Living Situation: Spouse current occupational status: retired 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 [employer] How many Children do You have: 2 How many Children do You have Comment: 1 is Other Information That Helps Us Care for You: No Feels Safe at Home: Yes Safety Concerns: Feels Safe At This Time Childhood Exposure to Second-Hand Smoke: Yes caffeine: Yes Dental Care, Regularly: No Physical Activity Frequency: Does not Exercise Physical Activity Frequency Comment: Rehab twice a week Seatbelt Use: sometimes Sunscreen Use: No Assistive Devices: Crutches Review of Systems Constitutional: no fever and no chills Respiratory: no cough and no dyspnea Cardiovascular: no chest pain Gastrointestinal: no abdominal pain, no hematemesis, no change in bowel habits, no diarrhea/loose stools, no blood in stools and no melena Musculoskeletal: + joint pain Integumentary: no problem reported Psychiatric: no problem reported Physical Exam Constitutional: WD/WN, vitals as above Respiratory: no respiratory distress Cardiovascular: rate controlled at the time of my visit. Gastrointestinal (Abdomen): normal bowel sounds, soft, nontender, no hepatosplenomegaly Musculoskeletal: Head/Neck/Chest: normocephalic Skin: no pedal pulse and discolored toes Psychiatric: Orientation: alert and oriented x 3 Results & Data ([facility]) Vital Signs (Past 12 Hours) Vital Signs Temp Pulse Pulse Resp BP Pulse Ox O2 Del Method 07/30/22 09:00 Nasal Cannula 07/30/22 07:06 36.7 C 85 18 123/73 91 Nasal Cannula 07/30/22 05:29 80 07/30/22 04:39 36.5 C 81 21 130/71 92 Nasal Cannula O2 Flow Rate 07/30/22 09:00 2 07/30/22 07:06 2 07/30/22 05:29 07/30/22 04:39 3 PG Care Time/CCT Total # of Minutes Spent Total Time Spent with Patient: Total time spent is greater than 50% in coordination of care (as documented) at patient's floor/unit and/or counseling patient: Coding Level of Care Code 23001 Initial Inpt Care Lvl 3 Diagnoses Anemia D64.9
--- NOTE | 2022-07-30 12:43 | Pulmonology Progress Note ---
Date of Service July 30, 2022 Assessment & Plan (1) Acute respiratory failure with hypoxia: (2) Bilateral pleural effusion: (3) Pulmonary edema: Chronicity: chronic Qualified Code(s): J81.1 - Chronic pulmonary edema (4) Shortness of breath: (5) (HFpEF) heart failure with preserved ejection fraction: Plan Chest x-ray 07/28/2022 personally reviewed: Portable film, mediastinal shift to the right with volume loss of the right lung, increased pulmonary vascular congestion with bilateral blunting of costophrenic angle. --Acute respiratory failure with hypoxia Secondary to pulmonary edema with bilateral pleural effusion Etiology is underlying diastolic CHF Last thoracentesis was performed by Shade Cortez on 07/07/2022, cytology was negative, culture was negative S/p thoracentesis 07/28/2022, 1650 cloudy serous fluid removed Covid-19 NAAT negative BNP 62 Procalcitonin 2D echo 11/25/2021: EF 65-70%, grade 1 diastolic dysfunction, mild concentric LVH, right ventricle not visualized --Bilateral pleural effusion Likely from underlying HFpEF Right sided pleural effusion has a lot of loculations and fibrin strands Plan: Chest x-ray from today shows mild reaccumulation of pleural fluid on the left side. Still is post 1 unit PRBC yesterday. Repeat chest x-ray in the morning With diuretics Case was discussed with Mariaa Baxter Please note the above document was generated using voice recognition software. It may contain grammatical, syntax or spelling errors.Any formal questions or concerns about the content, text or information contained within the body of this dictation should be directly addressed to the provider for clarification. Admission and Anticipated Discharge Date Admission Date: July 26, 2022 Subjective Patient seen and examined at bedside. No acute distress, no adverse events overnight He was saturating 93-94% on 3 days nasal cannula. I went down to 2 L. Denied any headache, no nausea, no vomiting. Denies any blood in the stools. No blood in the urine. Physical Exam Physical Exam: Constitutional: Respiratory distress HEENT: EOMI, PERRLA Respiratory system: Decreased air entry bilaterally, no wheeze, no rhonchi, positive crackles bilateral lower lobes CVS: S1-S2 positive, no murmurs or gallops Abdomen: Soft, nontender, nondistended, positive bowel sounds x4 Extremities: +2 pulses bilaterally radialis/ dorsalis pedis, no cyanosis, no edema, gangrene of the toes appreciated in bilateral feet Neuro: Awake alert oriented x3 Psych: Normal mood and affect G/U: No Rodriguez Skin: no rashes, warm and dry Lymphatic: no cervical or axillary lymphadenopathy Results & Data Results & Data ([facility]) Vital Signs (Past 12 Hours) Vital Signs Temp Pulse Pulse Resp BP Pulse Ox O2 Del Method 07/30/22 12:07 36.7 C 75 18 112/66 92 Nasal Cannula 07/30/22 09:00 Nasal Cannula 07/30/22 07:06 36.7 C 85 18 123/73 91 Nasal Cannula 07/30/22 05:29 80 07/30/22 04:39 36.5 C 81 21 130/71 92 Nasal Cannula O2 Flow Rate 07/30/22 12:07 07/30/22 09:00 2 07/30/22 07:06 2 07/30/22 05:29 07/30/22 04:39 3 Laboratory Results 07/30/22 07:43 07/30/22 07:43 PG Care Time/CCT Total # of Minutes Spent Total Time Spent with Patient: Total time spent is greater than 50% in coordination of care (as documented) at patient's floor/unit and/or counseling patient: Coding Level of Care Code 99924 Subseq Hosp Care Lvl 2 Diagnoses Acute respiratory failure with hypoxia J96.01 Bilateral pleural effusion J90 Pulmonary edema J81.1 Chronicity: chronic Shortness of breath R06.02 (HFpEF) heart failure with preserved ejection fraction I50.30
[2022-07-30 13:37] LABS: Hematocrit (blood only) 27.4 % (40.1-51.0); Hemoglobin 8.5 g/dl (14.0-18.0)
--- NOTE | 2022-07-30 15:16 | Orthopedic Progress Note ---
Date of Service July 30, 2022 Assessment & Plan (1) Status post reverse total replacement of right shoulder: Overall he seems to be doing better. He is still on 2 L nasal cannula. We will try to wean him off of his oxygen this weekend. He is orthopedically stable for [facility] when its okay with medicine. We will continue to follow him closely. Eran Amin was seen and examined at bedside this morning. Overall he is doing okay with respect to the right shoulder. He is still on 2 L of oxygen. He has no new complaints. Review of Systems All systems reviewed & are unremarkable except as noted in HPI & below. Physical Exam On physical examination of the right shoulder, the dressing was removed. There is a little bit of hematoma beneath the incision but no drainage from the incision. The incision looks good. He is wearing his sling as instructed. . Results & Data Results & Data Laboratory Results . Diagnostic Findings . PG Care Time/CCT Total # of Minutes Spent Total Time Spent with Patient: Total time spent is greater than 50% in coordination of care (as documented) at patient's floor/unit and/or counseling patient: Coding Level of Care Code 48920 Post Operative Follow-Up Diagnoses Status post reverse total replacement of right shoulder Z96.611
[2022-07-30] MEDS ORDERED: FUROSEMIDE INJ 20 MG/2 ML VIAL IV ONE (17:08)
--- NOTE | 2022-07-30 17:11 | Cardiology Progress Note ---
Date of Service July 30, 2022 Assessment & Plan (1) (HFpEF) heart failure with preserved ejection fraction: (2) CAD (coronary artery disease): (3) Atrial flutter, paroxysmal: Plan 1. Diastolic heart failure: He denies significant breathing difficulty currently. He did have recurrent pleural effusions. It would seem reasonable to continue intravenous diuretics while he is in her in the hospital. I think 40 mg of IV Lasix daily is reasonable. We can monitor his electrolytes and renal function. If his renal function declined slightly returning him to an oral dose of daily Lasix would be recommended. Previously was on 20 mg daily, I think he would benefit from being on 40 mg daily at the time of discharge. 2. Atrial flutter: Resolved. Do not think he requires a change in his medical regiment the exception of anticoagulation. I did discuss anticoagulation with the patient again today. This can certainly be deferred until his risk of bleeding has returned to normal. He will be a good candidate for either daily dose of Xarelto 20 mg or Eliquis 5 mg twice daily. 3. Coronary disease: He was felt to have nonobstructive coronary disease on his last catheterization. He did not endorse symptoms of angina or coronary insufficiency recently. Cardiac biomarkers have been normal. At this point will simply continue aggressive risk factor modification with a daily aspirin and high-dose atorvastatin. If systemic anticoagulation is started, aspirin should be discontinued. cardiology will sign off at this point. He should follow up with his primary state highway police officer after discharge, this is Dr. Sheffield. Please contact the on-call state highway police officer for any additional concerns Admission and Anticipated Discharge Date Admission Date: July 26, 2022 Subjective This afternoon the patient claims to be feeling better. He did not report any significant breathing difficulty. He was up in a chair earlier today did not re port any significant dizziness or lightheadedness. No sense of palpitation. Minimal discomfort at the operative site. Review of Systems Review of Systems: Per HPI Physical Exam Physical Exam: The patient is alert and oriented. Mood and affect appeared normal. He answered all questions appropriately. HEENT: Pupils are equal and reactive to light and accommodation. Extraocular movements are intact. The sclerae are anicteric. Neuro: Cranial nerves intact Right arm in a sling. right shoulder surgical scar appears to be healing well. Lungs: Reduced breath sounds at the right base. No rales. Mild expiratory wheezing. Normal respiratory effort. Cardiac: Heart demonstrates a regular rate and rhythm. Normal S1 and S2. No murmurs on examination. Extremities: There was no evidence of hypoperfusion. There is no cyanosis or clubbing. There is no edema. Trophic changes on both lower extremities with gangrenous toes. No palpable dorsalis pedis or posterior tibial pulses. Skin: I did not appreciate any rashes on examination today. Results & Data ([facility]) Vital Signs (Past 12 Hours) Vital Signs Temp Pulse Pulse Resp BP Pulse Ox O2 Del Method 07/30/22 16:44 36.7 C 86 18 118/74 90 Nasal Cannula 07/30/22 16:05 Room Air 07/30/22 16:00 82 07/30/22 12:07 36.7 C 75 18 112/66 92 Nasal Cannula 07/30/22 09:00 Nasal Cannula 07/30/22 07:06 36.7 C 85 18 123/73 91 Nasal Cannula 07/30/22 05:29 80 O2 Flow Rate 07/30/22 16:44 2 07/30/22 16:05 07/30/22 16:00 07/30/22 12:07 07/30/22 09:00 2 07/30/22 07:06 2 07/30/22 05:29 Laboratory Results Abnormal Lab Results 07/29/22 07/30/22 07/30/22 14:02 07:43 07:43 WBC 10.48 RBC 3.11 L Hgb 7.8 L Hct 25.6 L MCV 82.3 MCH 25.1 MCHC 30.5 L RDW Std Deviation 56.0 H RDW Coeff of Timbo 19.0 H Plt Count 425 H MPV 9.2 L Immature Gran % (Auto) 0.5 Neut % (Auto) 77.2 Lymph % (Auto) 9.4 Pettis % (Auto) 10.6 Eos % (Auto) 2.0 Baso % (Auto) 0.3 Neut # (Auto) 8.09 H Lymph # (Auto) 0.99 L Pettis # (Auto) 1.11 H Eos # (Auto) 0.21 Baso # (Auto) 0.03 Immature Gran # (Auto) 0.05 H RBC Morphology Unremarkable Sodium 135 L Potassium 3.6 Chloride 97 L Carbon Dioxide 32 Anion Gap 6 BUN 22 Creatinine 0.65 Est Cr Clr Drug Dosing 99.7 Est GFR ( Amer) 113.4 Est GFR (Non-Af Amer) 97.9 BUN/Creatinine Ratio 33.8 H Glucose 92 POC Glucose Calcium 8.6 Magnesium 2.0 Total Bilirubin 0.3 AST 15 ALT 13 Alkaline Phosphatase 99 Total Protein 6.6 Albumin 2.6 L Globulin 4.0 Albumin/Globulin Ratio 0.7 L Blood Type O Positive Antibody Screen NEGATIVE Crossmatch See Detail 07/30/22 07/30/22 11:49 11:59 WBC RBC Hgb 8.5 L Hct 27.4 L MCV MCH MCHC RDW Std Deviation RDW Coeff of Timbo Plt Count MPV Immature Gran % (Auto) Neut % (Auto) Lymph % (Auto) Pettis % (Auto) Eos % (Auto) Baso % (Auto) Neut # (Auto) Lymph # (Auto) Pettis # (Auto) Eos # (Auto) Baso # (Auto) Immature Gran # (Auto) RBC Morphology Sodium Potassium Chloride Carbon Dioxide Anion Gap BUN Creatinine Est Cr Clr Drug Dosing Est GFR ( Amer) Est GFR (Non-Af Amer) BUN/Creatinine Ratio Glucose POC Glucose 113 H Calcium Magnesium Total Bilirubin AST ALT Alkaline Phosphatase Total Protein Albumin Globulin Albumin/Globulin Ratio Blood Type Antibody Screen Crossmatch PG Care Time/CCT Total # of Minutes Spent Total Time Spent with Patient: Total time spent is greater than 50% in coordination of care (as documented) at patient's floor/unit and/or counseling patient: Coding Level of Care Code 08459 Subseq Hosp Care Lvl 2 Diagnoses (HFpEF) heart failure with preserved ejection fraction I50.30 CAD (coronary artery disease) I25.10 Atrial flutter, paroxysmal I48.92
[2022-07-30] MEDS: HYDROmorphone INJ 0.5 MG/0.5 ML SYR IV PRN (17:22)
--- NOTE | 2022-07-30 19:20 | XCELERA ---
[id number]
--- NOTE | 2022-07-30 20:25 | Ultrasound Report ---
US arterial duplex LE BI CLINICAL HISTORY: Per Dr. Ochoa verbal order TECHNIQUE: Real-time grayscale and color and spectral Doppler ultrasound imaging of the bilateral low er extremity arteries was performed. Measurements calculated based on NASCET criteria. COMPARISON: Comparison is made to left lower extremity ultrasound 03/09/2022 and bilateral lower extre mity ultrasound 09/30/2021 FINDINGS: Increased velocities were detected at the right superficial femoral artery, proximally measuring up t o 271 cm/s. The right distal posterior tibial artery also demonstrates increased velocities and monop hasic flow, 145 cm/s. In the right lower extremity, monophasic waveforms extend from the right poplit eal to the vessels of the calf. On the left, no increased velocities are seen. The stents are not well seen. Monophasic waveforms are seen from the distal superficial femoral artery to the calf. Incidentally noted, limited visualization of the bilateral peroneal arteries. IMPRESSION: Elevated velocities in the right superficial femoral artery and distal posterior tibial artery, raissa tible with hemodynamically significant stenosis. Monophasic waveforms are seen in the bilateral lower extremities. Compared to the prior exam, elevated velocity in the distal left superficial femoral ar umm is not seen on today's exam. ACT 112: Negative or not required by law. Electronically signed by: Greg Squires M.D. 07/30/2022 8:23 PM
[2022-07-30] MEDS: LATANOPROST 0.005% OP SOLN 2.5 ML BTL OP SCH (21:00)
[2022-07-30] MEDS: TAMSULOSIN HCL 0.4 MG CAP PO SCH (21:03)
[2022-07-30] MEDS: traZODone HCL 50 MG TAB PO SCH (21:36)
[2022-07-31] MEDS: oxyCODONE HCL IR 5 MG TAB (IMMEDIATE RELEASE) PO PRN ×4 (04:19→20:14)
[2022-07-31 07:13] LABS: Hematocrit (blood only) 28.9 % (40.1-51.0); Mean Corpuscular Hemoglobin 25.4 pg (25.0-34.0); Mean Corpuscular Hgb Conc 31.1 g/dL (32.0-36.0); Mean Corpuscular Volume 81.4 fL (80.0-100.0); Mean Platelet Volume 8.5 fL (9.4-12.4); Platelet Count 379 K/uL (130-400); RDW Coefficient of Variation 19.2 % (11.5-14.5); RDW Standard Deviation 56.8 fL (36.4-46.3); Red Blood Count 3.55 M/uL (4.63-6.08); White Blood Count 10.01 K/ul (4.8-10.8)
[2022-07-31 07:45] LABS: BUN Creatinine Ratio 39.7 (10-20); Calcium 8.6 mg/dl (8.5-10.1); Creatinine Clr Calc Pharmacy 101.6 ml/min; Est GFR (African American) 114.9 ml/min; Est GFR (Non-African American) 99.1 ml/min; Magnesium 1.9 mg/dl (1.7-2.4); Potassium 3.7 mmol/L (3.5-5.1)
--- NOTE | 2022-07-31 07:51 | Hospitalist Progress Note ---
Date of Service July 31, 2022 Assessment & Plan (1) Acute respiratory failure with hypoxia: Plan: This is a 71-year-old male with a history of HFpEF, bilateral pleural effusions, atrial fibrillation, coronary artery disease, peripheral artery disease, hyperlipidemia, anemia, pulmonary hypertension who presented to [facility] for R shoulder replacement on 07/26 and subsequently developed an increasing oxygen requirement, which is primarily suspected to be secondary to pulmonary edema Primary suspicion based on clinical appearance is acute HFpEF / pulmonary edema / worsening of known pleural effusions. VTE a possibility but will await labs; on ASA for post-surgical PPX. PNA is also a possibility Prior ECHO in October w/ normal EF, mild concentric LVH, EF 65-70%. Patient had thoracentesis prior to surgery for 500cc with pulmonology -- transudative fluid 06/30 Consulted POD#8 s/p reverse shoulder w/ increased O2 requirement 2-4L with NO O2 at baseline reported and placed on BiPAP to maintain adequate oxygenation VBG unremarkable CXR w/ evidence CHF/pulm edema/layering effusions w/ dependent consolidation, increased from 07/07 imaging Consulted pulm s/p thoracentesis for 1650mL cloudy serous fluid 07/[address] Alvarez Tx to PCU for afib/flutter -- converted back, maintained. Prior pAfib seen by Dr Sheffield but opted not for AC at that time. Cards consulted inpatient. Should ideally be on eliquis BID vs xarelto when bleeding ensured stable/dc. Continues on tele NSR. TSH wnl 1u PRBC for hgb 7.2 w/ lasix (on PO iron supplementation, did give Venofer IV x1) GI consulted given prior cirrhosis/esophageal varicies on EGD earlier this year w/ Dr Rush/upper GI discomfort --> had already increased PPI to BID, added carafate. Continuing to hold plavix as hgb further dropped w/ resuming, however no obvious bleeding but did have upper GI discomfort (resolved since) GI w/o need for inpatient scope, continue current plan Repeat hgb stable, improved w/ diuretics for CHF as outlined Diuretics: multiple additional IV doses provided, eventually placed on lasix 40mg IV daily, additional 20mg IV last evening / Given 40mg IV lasix AM 12 as O2 requirement up to 4-5L NC and progression on CXR-- down to 2L currently. Not enough fluid for tap currently but will monitor Planned to give 20mg IV in evening but discussed with pulm and ordered diamox 250mg PO x 1 for elevated bicarb on AM labs REPEAT ECHO -- LV systolic function normal. Grade I diastolic dysfunction. Mild cLVH. RVSP elevated 40-50mmHG. Mild aortic root dilatation --> BiPAP HS as discussed with pulm Vascular consulted given gangrenous toes b/l LE (follows through [place], [place] [facility]) imaging last evening doesn't show significant worsening remains on plavix for drop in hgb (resumed as not prior resumed by surgery) called Dr Ochoa this morning to review imaging, will plan to see patient on Tuesday, not occupational ther over the weekend (2) Bilateral pleural effusion: Plan: Bilateral pleural effusions, known. follows w/ [facility] pulmonology s/p thoracentesis with 500cc fluid removal on 06/30/22 on the RIGHT side Was hospitalized in January 2021 for acute CHF for the same -- had thoracentesis at this time too CXR w/ layering effusions, s/p thoracentesis with Dr Alvarez 07/28 Continue diuretics as above (cards w/ rec for 40mg po daily at discharge) 40mg IV this morning, no need for tap per pulm. lasix 20mg IV for tonight on hold and give 250mg PO diamox CXR in AM/continued assistance from pulmonary appreciated (3) CAD (coronary artery disease): Plan: CAD/PAD/HLD, paroxysmal afib Catheterization during January 2021 admission with acute CHF -- demonstrated triple-vessel CAD that is currently being managed medically. Follows with Dr Sheffield for hx paroxysmal afib (patient prefer conservative approach no further monitoring/anticoagulation), 2nd degree AV block (had mobitz 1 second degree-AV identified while on BB, but patient back on BB due to CAD), patient declined implantable monitoring in past. Continue ASA 81mg, statin, metoprolol tartrate 25mg BID (?switching to succinate at d/c) Cardiology consulted as above given patient flip afib/flutter and transferred to PCU. Consideration for anticoagulation if patient agreeable with Xarelto vs Eliquis as above. Would have CM tom check. Would need ASA discontinued in that event and continue anticoagulation/Plavix Keep K~4, Mag ~2 (additional K supplementation with Lasix) (4) Pulmonary hypertension: Plan: Pulmonary HTN History noted. Not appreciated on last TTE in 10/2021 Follows with [facility] [place] pul[place]ology, consulted while inpatient ?sarcoid -- NO elevation in calcium. discussed w/ pulm, doubtful (5) Anemia: Plan: Chronic iron deficiency anemia with baseline around 9-10 Hgb 8.8 on AM labs, however volume overloaded as above, will monitor. No bleeding reported Iron panel w/ low iron/trans % sat -- Venofer x 1, 1u PRBC 07/29 Hgb stable on repeat w/ dose of lasix for volume overload as above Remains on daily PO supplementation Monitor for any bleeding (6) Status post reverse total replacement of right shoulder: Plan: POD # 11 p Right Reverse Total Shoulder Arthroplasty(Right) with open biceps tenodesis as a distinct and separate procedure (modifier 59)- Yoel Ding, DO on 07/20 EBL 150cc Pain control/bowel regimen/DVT prophylaxis per primary service Was anticipating discharge 07/27, however see above, developed acute respiratory failure (7) Peripheral arterial disease: Plan: [facility] LLE [facility]oplasty with stenting in October this year, does have narrowing/marked stenosis distal superficial femoral artery on duplex in March 19 Plavix held for shoulder surgery, resumed as above but now again on hold for anemia but given anemia/need for PRBC placed back on hold Will need outpatient follow up at discharge, consulted Dr Ochoa while inpatient given appearance and continued inpatient stay/unknown timeline for f/u vascular [facility] Imaging obtained, does not appear much changed has not had debridement, but will likely require Dr Ochoa not occupational ther over weekend, will plan to see on Tuesday (8) Esophageal varices: Plan: hx cirrhosis, ?2nd RILEY, no reported etoh use/abuse however did have B12 deficiency noted esophageal varices on EGD earlier this year with Dr rush, consulted given anemia and GI discomfort. Increased PPI to BID in meantime GI recs continuing PPI BID, no changes to current regimen Plan continued inpatient stay supplemental O2 as needed to maintain sats BiPAP for tonight lasix IV this morning, diamox this afternoon and then plan to resume lasix 40IV/20IV daily (cards rec for 40mg initially, may need increased. Cr stable on continued IV lasix) vascular consulted -- to be seen tuesday Admission and Anticipated Discharge Date Admission Date: July 26, 2022 Supervising Physician Co-Signing Physician Notes PA Supervision Note: I did not personally see / examine the patient today. I verified all vargas points and agree with ANGELY Baxter with the following exceptions and/or additions: Pleural effusion, hypoxia: CXR today with evidence of congestive failure and pulmonary edema, layering pleural effusions with dependent consolidation similar to CXR yesterday. Dr. Alvarez with Pulmonology consulted and appreciate recommendations: collection too small today for repeat thoracentesis, received 40mg Lasix today, will continue diuresis with monitoring of renal function, also will get Diamox today. BIPAP qHS. PAD: Patient's records have been unable to be obtained with regard to peripheral vascular disease. 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 Duplex scan bilateral LE showed "elevated velocities in the right superficial femoral artery and distal posterior tibial artery, compatible with hemodynamically significant stenosis. Monophasic waveforms are seen in the bilateral lower extremities. Compared to the prior exam, elevated velocity in the distal left superficial femoral artery is not seen on today's exam." Vascular Surgery consulted, to see on Tuesday as not occupational ther over the weekend. No pain reported in his toes, but does have hyperesthesia over bilateral dorsal feet with history of neuropathic foot/leg pain. Continue antiplatelets and statin. Subjective eval this morning, sitting up in bed eating burger and south korean fries on 2L NC, denies being short of breath, no chest pain or recurrence of arrhythmia. wanting to go to [place], but plans for [facility]. Discussed reached out to [place] for SW to look into such and hopefully more information on Tuesday. Discussed BiPAP for tonight and reasoning, patient agreeable to such. Dr Alvarez seen this morning, not enough fluid to tap. Continue Bipap HS, discussed diamox and ok to give tonight and hold off evening dose of lasix. Consult placed for vascular given gangrenous toes. Denies current pain. Pain to his shoulder primary source of pain reported. No increased pain to legs, baseline neuropathy pain. No further GI discomforts since ordered PPI BID/carafate and will continue this. No fever/chills, chest pain, nausea, vomiting, dysuria or other complaint at this time. Review of Systems Review of Systems: All systems reviewed & are unremarkable except as noted in HPI & below Physical Exam Physical Exam: General: chronically ill appearing male sitting up in bed eating lunch, NO ACUTE DISTRESS, on 2L NC HEENT: head normocephalic, mmm, trachea midline Resp: diminished in bases bilaterally, decreased air entry bilarerally, +crackles bilaterally, no wheezing, on 2L w/ SpO2 91%, not tachypneic, no cough noted CV: RRR, no m/r/g, no pitting edema, pulses decreased but palpable, no calf tenderness GI: +BS/soft/NT ; no Rodriguez MSK/Neuro/Skin: [place] to R shoulder, sling intact, fingers mobile, pulses palpable, slightly tender to palpation (reported increased w/ movements this morning repositioning in bed) gangrenous appearance to bilateral toes (unchanged from prior), cool to touch but sensation intact, nontender to palpation Results & Data Results & Data ([facility]) Vital Signs (Past 12 Hours) Vital Signs Temp Pulse Pulse Pulse Resp BP Pulse Ox 07/31/22 07:06 36.9 C 87 20 122/71 91 07/30/22 22:16 79 07/31/22 03:04 36.9 C 74 19 105/67 94 07/30/22 20:00 07/30/22 23:28 36.9 C 75 20 101/64 90 07/30/22 20:08 36.7 C 87 17 123/70 91 O2 Del Method O2 Flow Rate 07/31/22 07:06 Nasal Cannula 4.5 07/30/22 22:16 07/31/22 03:04 Nasal Cannula 4.5 07/30/22 20:00 Nasal Cannula 5 07/30/22 23:28 Nasal Cannula 5 07/30/22 20:08 Nasal Cannula 3 Laboratory Results 07/31/22 07/31/22 Range/Units 06:57 06:57 WBC 10.01 (4.8-10.8) K/ul RBC 3.55 L (4.63-6.08) M/uL Hgb 9.0 L (14.0-18.0) g/dl Hct 28.9 L (40.1-51.0) % MCV 81.4 (80.0-100.0) fL MCH 25.4 (25.0-34.0) pg MCHC 31.1 L (32.0-36.0) g/dL RDW Std Deviation 56.8 H (36.4-46.3) fL RDW Coeff of Timbo 19.2 H (11.5-14.5) % Plt Count 379 (130-400) K/uL MPV 8.5 L (9.4-12.4) fL Sodium 135 L (136-145) mmol/L Potassium 3.7 (3.5-5.1) mmol/L Chloride 97 L (98-107) mmol/L Carbon Dioxide 34 H (21-32) mmol/L Anion Gap 4 (3-11) BUN 25 H (6-23) mg/dl Creatinine 0.63 (0.6-1.4) mg/dl Est Cr Clr Drug Dosing 101.6 ml/min Est GFR ( Amer) 114.9 ml/min Est GFR (Non-Af Amer) 99.1 ml/min BUN/Creatinine Ratio 39.7 H (10-20) Glucose 97 (70-99(Fasting)) mg/dl Calcium 8.6 (8.5-10.1) mg/dl Magnesium 1.9 (1.7-2.4) mg/dl Diagnostic Findings Duplex Scan Lower Extremity Artery 07/30/22 17:42 US arterial duplex LE BI CLINICAL HISTORY: Per Dr. Ochoa verbal order TECHNIQUE: Real-time grayscale and color and spectral Doppler ultrasound imaging of the bilateral lower extremity arteries was performed. Measurements calculated based on NASCET criteria. COMPARISON: Comparison is made to left lower extremity ultrasound 03/09/2022 and bilateral lower extremity ultrasound 09/30/2021 FINDINGS: Increased velocities were detected at the right superficial femoral artery, proximally measuring up to 271 cm/s. The right distal posterior tibial artery also demonstrates increased velocities and monophasic flow, 145 cm/s. In the right lower extremity, monophasic waveforms extend from the right popliteal to the vessels of the calf. On the left, no increased velocities are seen. The stents are not well seen. Monophasic waveforms are seen from the distal superficial femoral artery to the calf. Incidentally noted, limited visualization of the bilateral peroneal arteries. IMPRESSION: Elevated velocities in the right superficial femoral artery and distal posterior tibial artery, compatible with hemodynamically significant stenosis. Monophasic waveforms are seen in the bilateral lower extremities. Compared to the prior exam, elevated velocity in the distal left superficial femoral artery is not seen on today's exam. ACT 112: Negative or not required by law. Electronically signed by: Greg Squires M.D. 07/30/2022 8:23 PM Chest X-Ray 07/31/22 07:17 SINGLE VIEW CHEST CLINICAL HISTORY: Dyspnea. FINDINGS: An AP, portable, upright chest radiograph is compared to study dated 07/30/2022 and correlated with chest CT dated 03/08/2022. The heart is enlarged note atherosclerotic calcification of the thoracic aorta. There is pulmonary vascular congestion with evidence of interstitial edema. There are layering pleural effusions with dependent consolidation. No pneumothorax is seen. The skeletal structures are osteopenic. There is chronic posttraumatic deformity of the right clavicle as well as healed left-sided rib fractures. Bilateral shoulder arthroplasties are in place. Skin clips project over the right shoulder. IMPRESSION: 1. Cardiomegaly with evidence of congestive failure and pulmonary edema. 2. Layering pleural effusions with dependent consolidation. These findings are similar to yesterday. ACT 112: Negative or not required by law. Electronically signed by: Shade Guerin M.D. 07/31/2022 7:52 AM PG Care Time/CCT Total # of Minutes Spent Total Time Spent with Patient: Total time spent is greater than 50% in coordination of care (as documented) at patient's floor/unit and/or counseling patient: Coding Level of Care Code 83454 Subseq Hosp Care Lvl 3 Diagnoses Acute respiratory failure with hypoxia J96.01 Bilateral pleural effusion J90 CAD (coronary artery disease) I25.10 Pulmonary hypertension I27.20 Anemia D64.9 Anemia type: unspecified type Status post reverse total replacement of right shoulder Z96.611 Peripheral arterial disease I73.9 Esophageal varices I85.00 (1) Anemia Anemia type: unspecified type Qualified Code(s): D64.9 - Anemia, unspecified
--- NOTE | 2022-07-31 07:53 | XRay Report ---
SINGLE VIEW CHEST CLINICAL HISTORY: Dyspnea. FINDINGS: An AP, portable, upright chest radiograph is compared to study dated 07/30/2022 and correlat ed with chest CT dated 03/08/2022. The heart is enlarged note atherosclerotic calcification of the tho racic aorta. There is pulmonary vascular congestion with evidence of interstitial edema. There are la yering pleural effusions with dependent consolidation. No pneumothorax is seen. The skeletal structur es are osteopenic. There is chronic posttraumatic deformity of the right clavicle as well as healed l eft-sided rib fractures. Bilateral shoulder arthroplasties are in place. Skin clips project over the right shoulder. IMPRESSION: 1. Cardiomegaly with evidence of congestive failure and pulmonary edema. 2. Layering pleural effusions with dependent consolidation. These findings are similar to yesterday. ACT 112: Negative or not required by law. Electronically signed by: Shade Guerin M.D. 07/31/2022 7:52 AM
[2022-07-31] MEDS ORDERED: FUROSEMIDE 40 MG/4 ML VIAL IV ONE (08:35)
[2022-07-31] MEDS: DORZOLAMIDE/TIMOLOL 22.3/6.8MG/ML 10 ML BTL OP SCH ×3 (08:39→20:20)
[2022-07-31] MEDS: BRIMONIDINE TARTRATE 0.2% 5ML OP SCH ×2 (08:41→20:19)
[2022-07-31] MEDS: FLUTICASONE/VILANTEROL 100/25MCG 14 PUFFS/INHALER INH SCH (08:41)
[2022-07-31] MEDS: prednisoLONE acetate 1% OP SUSP 5 ML BTL OP SCH ×3 (08:44→20:20)
[2022-07-31] MEDS: POTASSIUM CHLORIDE 20 MEQ/15 ML UDC PO SCH ×2 (08:45→17:54)
[2022-07-31] MEDS: ACETAMINOPHEN 500 MG TAB PO SCH ×2 (08:46→13:59)
[2022-07-31] MEDS: ASPIRIN 81 MG ECTAB PO SCH (08:47)
[2022-07-31] MEDS: ATORVASTATIN 40 MG TAB PO SCH (08:47)
[2022-07-31] MEDS: DOCUSATE SODIUM 100 MG CAP PO SCH ×2 (08:48→20:19)
[2022-07-31] MEDS: buPROPion HCl 100 MG TABLET PO SCH ×2 (08:48→20:23)
[2022-07-31] MEDS: MULTIVITAMIN TAB PO SCH (08:49)
[2022-07-31] MEDS: GABAPENTIN 400 MG CAP PO SCH ×3 (08:49→20:23)
[2022-07-31] MEDS: FERROUS SULFATE 325 MG TAB PO SCH (08:49)
[2022-07-31] MEDS: PANTOprazole 40 MG TAB PO SCH ×2 (08:50→20:22)
[2022-07-31] MEDS: METOPROLOL TARTRATE 25 MG TAB PO SCH ×2 (08:50→20:22)
[2022-07-31] MEDS: SENNA 8.6 MG TAB PO SCH ×2 (08:50→20:24)
[2022-07-31] MEDS: SULFAMETHOXAZOLE/TRIMETHOPRIM DS 800/160MG TAB PO SCH ×2 (08:51→20:23)
[2022-07-31] MEDS ORDERED: POTASSIUM CHLORIDE CRTAB 20 MEQ TABCR PO STA (08:51)
--- NOTE | 2022-07-31 09:08 | Orthopedic Progress Note ---
Date of Service July 31, 2022 Assessment & Plan (1) Status post reverse total replacement of right shoulder: With regards to his right shoulder is doing fairly well. Is not having much pain. Overall he says he feels fine. He is still on 4 L of oxygen by nasal cannula. Cardiology has signed off. We are awaiting further recommendations from the hospitalist as well as pulmonology. He is already received acceptance into [facility]. He is orthopedically stable for discharge when medically ready. Eran Amin was seen and examined at bedside this morning. Overall he says he feels better. He was having some hypoxia last night and was requiring increased oxygenation. He is currently on 4.5 L by nasal cannula. His shoulder is doing well. He has no new complaints.. Review of Systems All systems reviewed & are unremarkable except as noted in HPI & below. Physical Exam On physical examination the right shoulder, the incision is clean and dry. He has a hematoma beneath the incision which is to be expected. He is neurovascular intact. He is wearing his sling as instructed.. Results & Data Results & Data Laboratory Results . Diagnostic Findings . PG Care Time/CCT Total # of Minutes Spent Total Time Spent with Patient: Total time spent is greater than 50% in coordination of care (as documented) at patient's floor/unit and/or counseling patient: Coding Level of Care Code 16523 Post Operative Follow-Up Diagnoses Status post reverse total replacement of right shoulder Z96.611
--- NOTE | 2022-07-31 10:03 | Pulmonology Progress Note ---
Date of Service July 31, 2022 Assessment & Plan (1) Acute respiratory failure with hypoxia: (2) Bilateral pleural effusion: (3) Pulmonary edema: Chronicity: chronic Qualified Code(s): J81.1 - Chronic pulmonary edema (4) Shortness of breath: (5) (HFpEF) heart failure with preserved ejection fraction: Plan Chest x-ray 07/28/2022 personally reviewed: Portable film, mediastinal shift to the right with volume loss of the right lung, increased pulmonary vascular congestion with bilateral blunting of costophrenic angle. --Acute respiratory failure with hypoxia Secondary to pulmonary edema with bilateral pleural effusion Etiology is underlying diastolic CHF Last thoracentesis was performed by Shade Cortez on 07/07/2022, cytology was negative, culture was negative S/p thoracentesis 07/28/2022, 1650 cloudy serous fluid removed Covid-19 NAAT negative BNP 62 Procalcitonin 2D echo 11/25/2021: EF 65-70%, grade 1 diastolic dysfunction, mild concentric LVH, right ventricle not visualized --Bilateral pleural effusion Likely from underlying HFpEF Right sided pleural effusion has a lot of loculations and fibrin strands Plan: Chest x-ray from today still shows worsening bilateral pleural effusion with pulmonary edema 40 mg of Lasix given today. Consider giving another 20 mg in the evening BUNs creatinine is still within normal limit Bedside ultrasound shows bilateral pleural effusion. All the moderate on the left, right side small to moderate with fibrin strands. Case was discussed with Mariaa Baxter Please note the above document was generated using voice recognition software. It may contain grammatical, syntax or spelling errors.Any formal questions or concerns about the content, text or information contained within the body of this dictation should be directly addressed to the provider for clarification. Admission and Anticipated Discharge Date Admission Date: July 26, 2022 Subjective Patient seen and examined at bedside. No acute distress, no adverse events overnight. He was saturating 99% on 5 L at time of examination. I went down to 2 L and he was maintaining saturation on 91-92% Denies any headache, no nausea, no vomiting Fair appetite. Complaining of pain in the toes. Review of Systems Review of Systems: All systems reviewed & are unremarkable except as noted in Subjective Physical Exam Physical Exam: Constitutional: Respiratory distress HEENT: EOMI, PERRLA Respiratory system: Decreased air entry bilaterally, no wheeze, no rhonchi, positive crackles bilateral lower lobes CVS: S1-S2 positive, no murmurs or gallops Abdomen: Soft, nontender, nondistended, positive bowel sounds x4 Extremities: +2 pulses bilaterally radialis/ dorsalis pedis, no cyanosis, no edema, gangrene of the toes appreciated in bilateral feet Neuro: Awake alert oriented x3 Psych: Normal mood and affect G/U: No Rodriguez Skin: no rashes, warm and dry Lymphatic: no cervical or axillary lymphadenopathy Results & Data Results & Data ([facility]) Vital Signs (Past 12 Hours) Vital Signs Temp Pulse Pulse Resp BP Pulse Ox O2 Del Method 07/31/22 07:06 36.9 C 87 20 122/71 91 Nasal Cannula 07/30/22 22:16 79 07/31/22 03:04 36.9 C 74 19 105/67 94 Nasal Cannula 07/30/22 23:28 36.9 C 75 20 101/64 90 Nasal Cannula O2 Flow Rate 07/31/22 07:06 4.5 07/30/22 22:16 07/31/22 03:04 4.5 07/30/22 23:28 5 Laboratory Results 07/31/22 06:57 07/31/22 06:57 PG Care Time/CCT Total # of Minutes Spent Total Time Spent with Patient: Total time spent is greater than 50% in coordination of care (as documented) at patient's floor/unit and/or counseling patient: Coding Level of Care Code 20334 Subseq Hosp Care Lvl 2 Diagnoses Acute respiratory failure with hypoxia J96.01 Bilateral pleural effusion J90 Pulmonary edema J81.1 Chronicity: chronic Shortness of breath R06.02 (HFpEF) heart failure with preserved ejection fraction I50.30
[2022-07-31] MEDS: HYDROmorphone INJ 0.5 MG/0.5 ML SYR IV PRN ×2 (11:04→15:06)
--- NOTE | 2022-07-31 12:36 | Procedure Note ---
Procedure Note Date of Service July 31, 2022 Note Bedside Ultrasound: Lung: Right:-Small pleural effusion partially loculated with multifocal fibrin bands Left:-Small to moderate pleural effusion with dependent atelectasis. No hematocrit sign Please note the above document was generated using voice recognition software. It may contain grammatical, syntax or spelling errors.Any formal questions or concerns about the content, text or information contained within the body of this dictation should be directly addressed to the provider for clarification. Coding CPT Codes Pulmonary/Thoracic - Pulmonary and Thoracic: 99432 US, Chest, real time with imaging documentation ([id number]) [facility] (Charges) Pulmonary/Thoracic Procedure 1: Pulmonary and Thoracic: 96713 US, Chest, real time with imaging documentation
[2022-07-31] MEDS ORDERED: FUROSEMIDE INJ 20 MG/2 ML VIAL IV SCH (17:00)
[2022-07-31] MEDS ORDERED: acetaZOLAMIDE 250 MG TAB PO ONE (17:00)
[2022-07-31] MEDS ORDERED: METOPROLOL TARTRATE 1 MG/ML VIAL IV ONE (18:39)
[2022-07-31] MEDS: LATANOPROST 0.005% OP SOLN 2.5 ML BTL OP SCH (20:21)
[2022-07-31] MEDS: TAMSULOSIN HCL 0.4 MG CAP PO SCH (20:23)
[2022-07-31] MEDS: traZODone HCL 50 MG TAB PO SCH (20:27)
[2022-08-01] MEDS: ACETAMINOPHEN 500 MG TAB PO SCH ×4 (00:12→22:04)
[2022-08-01] MEDS: oxyCODONE HCL IR 5 MG TAB (IMMEDIATE RELEASE) PO PRN ×3 (03:19→12:10)
--- NOTE | 2022-08-01 07:20 | Pulmonology Progress Note ---
Date of Service August 01, 2022 Assessment & Plan (1) Acute respiratory failure with hypoxia: (2) Bilateral pleural effusion: (3) Pulmonary edema: Chronicity: chronic Qualified Code(s): J81.1 - Chronic pulmonary edema (4) Shortness of breath: (5) (HFpEF) heart failure with preserved ejection fraction: Plan Chest x-ray 07/28/2022 personally reviewed: Portable film, mediastinal shift to the right with volume loss of the right lung, increased pulmonary vascular congestion with bilateral blunting of costophrenic angle. --Acute respiratory failure with hypoxia Secondary to pulmonary edema with bilateral pleural effusion Etiology is underlying diastolic CHF Last thoracentesis was performed by Shade Cortez on the right side 07/07/2022, 450 mill fluid was removed, cytology was negative, culture was negative S/p thoracentesis 07/28/2022, 1650 cloudy serous fluid removed, transudative, cytology negative Covid-19 NAAT negative BNP 62 Procalcitonin 2D echo 11/25/2021: EF 65-70%, grade 1 diastolic dysfunction, mild concentric LVH, right ventricle not visualized --Bilateral pleural effusion Likely from underlying HFpEF Right sided pleural effusion has a lot of loculations and fibrin strands Plan: Chest x-ray from today shows minimal improvement compared to yesterday. Oxygenation requirement has gone down. Would recommend to continue with 40 mg of Lasix. Give another 250 mg of IV acetazolamide in the evening. Follow-up BMP to look at BUN and creatinine Case was discussed with Mariaa Baxter and R Please note the above document was generated using voice recognition software. It may contain grammatical, syntax or spelling errors.Any formal questions or concerns about the content, text or information contained within the body of this dictation should be directly addressed to the provider for clarification. Admission and Anticipated Discharge Date Admission Date: July 26, 2022 Subjective Patient seen and examined at bedside. No acute distress, no adverse events overnight. Was saturating 97-98% on 2 L nasal cannula. I went down to 1 L Denies any chest pain, no headache, no nausea, no vomiting Still complains of toe pain. Denies any fever or chills Shortness of breath is improved Review of Systems Review of Systems: All systems reviewed & are unremarkable except as noted in Subjective Physical Exam Physical Exam: Constitutional: Respiratory distress HEENT: EOMI, PERRLA Respiratory system: Decreased air entry bilaterally, no wheeze, no rhonchi, positive crackles bilateral lower lobes CVS: S1-S2 positive, no murmurs or gallops Abdomen: Soft, nontender, nondistended, positive bowel sounds x4 Extremities: +2 pulses bilaterally radialis/ dorsalis pedis, no cyanosis, no edema, gangrene of the toes appreciated in bilateral feet Neuro: Awake alert oriented x3 Psych: Normal mood and affect G/U: No Rodriguez Skin: no rashes, warm and dry Lymphatic: no cervical or axillary lymphadenopathy Results & Data Results & Data ([facility]) Vital Signs (Past 12 Hours) Vital Signs Temp Pulse Pulse Resp BP Pulse Ox O2 Del Method 07/31/22 19:30 Nasal Cannula 08/01/22 03:30 37.0 C 70 20 101/60 96 Nasal Cannula 07/31/22 22:15 72 07/31/22 22:19 36.8 C 74 18 118/72 95 Nasal Cannula 07/31/22 19:29 36.6 C 75 17 128/74 95 Nasal Cannula O2 Flow Rate 07/31/22 19:30 08/01/22 03:30 2 07/31/22 22:15 07/31/22 22:19 2 07/31/22 19:29 2 Laboratory Results 07/31/22 06:57 07/31/22 06:57 PG Care Time/CCT Total # of Minutes Spent Total Time Spent with Patient: Total time spent is greater than 50% in coordination of care (as documented) at patient's floor/unit and/or counseling patient: Coding Level of Care Code 44820 Subseq Hosp Care Lvl 2 Diagnoses Acute respiratory failure with hypoxia J96.01 Bilateral pleural effusion J90 Pulmonary edema J81.1 Chronicity: chronic Shortness of breath R06.02 (HFpEF) heart failure with preserved ejection fraction I50.30
--- NOTE | 2022-08-01 07:26 | Orthopedic Progress Note ---
Date of Service August 01, 2022 Assessment & Plan (1) Status post reverse total replacement of right shoulder: He is doing well with regards to his shoulder. He is not having too much pain. He is still hospitalized for pulmonary edema and hypoxia. He is being followed by the life scientist and the hospitalist. He is also dealing with some vascular issues of his lower extremities and vascular has been consulted and will see him tomorrow. He is orthopedically stable for discharge when medically ready. He will likely still be a few days. Eran Amin was seen and examined at bedside this morning. He says he is feeling okay. He has been dealing with some pulmonary edema and has been taking some Lasix. His oxygen saturations are improved this morning from yesterday. His shoulder is doing well and he has no complaints with that.. Review of Systems All systems reviewed & are unremarkable except as noted in HPI & below. Physical Exam On physical examination the right shoulder, the incision is clean and dry. He has no drainage. He is neurovascular intact.. Results & Data Results & Data Laboratory Results . Diagnostic Findings . PG Care Time/CCT Total # of Minutes Spent Total Time Spent with Patient: Total time spent is greater than 50% in coordination of care (as documented) at patient's floor/unit and/or counseling patient: Coding Level of Care Code 89945 Post Operative Follow-Up Diagnoses Status post reverse total replacement of right shoulder Z96.611
--- NOTE | 2022-08-01 07:47 | Hospitalist Progress Note ---
Date of Service August 01, 2022 Assessment & Plan (1) Acute respiratory failure with hypoxia: Plan: This is a 71-year-old male with a history of HFpEF, bilateral pleural effusions, atrial fibrillation, coronary artery disease, peripheral artery disease, hyperlipidemia, anemia, pulmonary hypertension who presented to [facility] for R shoulder replacement on 07/26 and subsequently developed an increasing oxygen requirement, which is primarily suspected to be secondary to pulmonary edema Primary suspicion based on clinical appearance is acute HFpEF / pulmonary edema / worsening of known pleural effusions. VTE a possibility but will await labs; on ASA for post-surgical PPX. PNA is also a possibility Prior ECHO in October w/ normal EF, mild concentric LVH, EF 65-70%. Patient had thoracentesis prior to surgery for 500cc with pulmonology -- transudative fluid 06/30 Consulted POD#8 s/p reverse shoulder w/ increased O2 requirement 2-4L with NO O2 at baseline reported and placed on BiPAP to maintain adequate oxygenation VBG unremarkable CXR w/ evidence CHF/pulm edema/layering effusions w/ dependent consolidation, increased from 07/07 imaging Consulted pulm s/p thoracentesis for 1650mL cloudy serous fluid 07/[address] Alvarez Tx to PCU for afib/flutter -- converted back, maintained. Prior pAfib seen by Dr Sheffield but opted not for AC at that time. Cards consulted inpatient. Should ideally be on eliquis BID vs xarelto when bleeding ensured stable/dc. Continues on tele NSR. TSH wnl 1u PRBC for hgb 7.2 w/ lasix (on PO iron supplementation, did give Venofer IV x1) GI consulted given prior cirrhosis/esophageal varicies on EGD earlier this year w/ Dr Rush/upper GI discomfort --> had already increased PPI to BID, added carafate. Continuing to hold plavix as hgb further dropped w/ resuming, however no obvious bleeding but did have upper GI discomfort (resolved since) GI w/o need for inpatient scope, continue current plan Repeat hgb stable, improved w/ diuretics for CHF as outlined Diuretics: multiple additional IV doses provided, eventually placed on lasix 40mg IV daily, additional 20mg IV in evening Given 40mg IV lasix AM 12/3 as O2 requirement up to 4-5L NC and progression on CXR-- down to 2L--> Not enough fluid for tap at that time Given diamox 250mg PO x 1 evening 07/31 for bicarb 34--> improved to 33 on AM labs REPEAT ECHO -- LV systolic function normal. Grade I diastolic dysfunction. Mild cLVH. RVSP elevated 40-50mmHG. Mild aortic root dilatation BiPAP HS ordered -- DECLINED althought stated he would try 08/01 --> Lasix 40mg IV this morning (40meq KCL), CXR unchanged on report but does appear improved. Cr stable w/ continued diuretics Down to 1-2 L on NC Desat to 70s, good waveform reported Discussed w/ pulm , diamox 250mg IV x 1 for this evening. Discussed desat, ok w/ additional 20mg IV lasix this evening Attempt BiPAP again tonight ith pulm Vascular consulted given gangrenous toes b/l LE (follows through [facility], [place] [facility]) imaging w/o significant worsening remained off plavix for drop in hgb (resumed as not prior resumed by surgery), suspect diluted from volume overload will resume plavix for AM, Dr Ochoa to see Tuesday (2) Bilateral pleural effusion: Plan: Bilateral pleural effusions, known. follows w/ [facility] pulmonology s/p thoracentesis with 500cc fluid removal on 06/30/22 on the RIGHT side Was hospitalized in January 2021 for acute CHF for the same -- had thoracentesis at this time too CXR w/ layering effusions, s/p thoracentesis with Dr Alvarez 07/28 Continue diuretics as above (cards w/ rec for 40mg po daily at discharge) 40mg IV AM 08/01, held PM 20mg and given diamox CXR w/ slight improvement, still congested Discussed with pulm --> 20mg IV lasix tonight w/ diamox 250mg x 1 CXR in AM (3) CAD (coronary artery disease): Plan: CAD/PAD/HLD, paroxysmal afib Catheterization during January 2021 admission with acute CHF -- demonstrated triple-vessel CAD that is currently being managed medically. Follows with Dr Sheffield for hx paroxysmal afib (patient prefer conservative approach no further monitoring/anticoagulation), 2nd degree AV block (had mobitz 1 second degree-AV identified while on BB, but patient back on BB due to CAD), patient declined implantable monitoring in past. Continue ASA 81mg, statin, metoprolol tartrate 25mg BID (?switching to succinate at d/c) Cardiology consulted as above given patient flip afib/flutter and transferred to PCU. Consideration for anticoagulation if patient agreeable with Xarelto vs Eliquis as above. Would have CM tom check. Would need ASA discontinued in that event and continue anticoagulation/Plavix Keep K~4, Mag ~2 (additional K supplementation with Lasix) (4) Pulmonary hypertension: Plan: Pulmonary HTN History noted. Not appreciated on last TTE in 10/2021 Follows with [facility] [place] pul[place]ology, consulted while inpatient ?sarcoid -- NO elevation in calcium. discussed w/ pulm, doubtful (5) Anemia: Plan: Chronic iron deficiency anemia with baseline around 9-10 Hgb 8.8 on AM labs, however volume overloaded as above, will monitor. No bleeding reported Iron panel w/ low iron/trans % sat -- Venofer x 1, 1u PRBC 07/29 Hgb stable on repeat w/ dose of Lasix for volume overload as above, suspect continued lows from volume overload Remains on daily PO supplementation Monitor for any bleeding (6) Status post reverse total replacement of right shoulder: Plan: POD # 12 p Right Reverse Total Shoulder Arthroplasty(Right) with open biceps tenodesis as a distinct and separate procedure (modifier 59)- Yoel Ding, DO on 07/20 EBL 150cc Pain control/bowel regimen/DVT prophylaxis per primary service Was anticipating discharge 07/27, however see above, developed acute respiratory failure (7) Peripheral arterial disease: Plan: [facility] [place]p LLE angioplasty with stenting in October this year, does have narrowing/marked stenosis distal superficial femoral artery on duplex in March 19 Plavix held for shoulder surgery, resumed as above but now again on hold for anemia but given anemia/need for PRBC placed back on hold Will need outpatient follow up at discharge, consulted Dr Ochoa while inpatient given appearance and continued inpatient stay/unknown timeline for f/u vascular [facility] Imaging obtained, does not appear much changed has not had debridement, but will likely require in future however he states expected to fall off wanting terbinafine for fingernails, not formulary, rx by PCP for R hand nail. can bring in. Dr Ochoa not munitions handler over weekend, will plan to see on Tuesday (8) Esophageal varices: Plan: hx cirrhosis, ?2nd RILEY, no reported etoh use/abuse however did have B12 deficiency noted esophageal varices on EGD earlier this year with Dr rush, consulted given anemia and GI discomfort. Increased PPI to BID in meantime GI recs continuing PPI BID, no changes to current regimen Plan continued inpatient stay supplemental O2 as needed to maintain sats, currently on 2L BiPAP for tonight if able to tolerate/agreeable Lasix additional 20mg IV for tonight w/ PO Kcl, diamox per discussion with pulmonary Prior recs for lasix 40mg PO daily at d/c but suspect will need increased from that given multiple IV w/ continued effusion/O2 requirement Vascular to see tomorrow Admission and Anticipated Discharge Date Admission Date: July 26, 2022 Supervising Physician Co-Signing Physician Notes PA Supervision Note: I did not personally see / examine the patient today. I verified all vargas points and agree with ANGELY Baxter with the following exceptions and/or additions: Pleural effusion, hypoxia: CXR with mild improvement today compared to yesterday. Received another Lasix 40mg IV dose, as well as acetazolamide 250mg IV. Dr. Alvarez with Pulmonology consulted and appreciate recommendations. BIPAP at night if patient agreeable. PAD: Duplex scan bilateral LE showed "elevated velocities in the right superficial femoral artery and distal posterior tibial artery, compatible with hemodynamically significant stenosis. Monophasic waveforms are seen in the bilateral lower extremities. Compared to the prior exam, elevated velocity in the distal left superficial femoral artery is not seen on today's exam." Vascular Surgery consulted, to see 08/02 as they are not munitions handler over the weeken d. No pain reported in his toes, but does have hyperesthesia over bilateral dorsal feet with history of neuropathic foot/leg pain. Continue antiplatelets and statin. Did not increase gabapentin as increased doses have led to mental status changes in the past. Subjective Eval this morning Pain to shoulder, med w/ oxycodone, then had some neuropathic type pain to feet and given Dilaudid. Patient reports pain currently controlled, takes gabapentin TID for neuropathic pain. Will look at dose. states the gabapentin makes him "wonky". He did not wear the BiPAP last evening but was given a dose of diamox for CO2 retention/diuresis. Consideration for additional dose tonight. Given IV lasix this morning, CXR does show some improvement. On 1L NC, titrate to RA as able planned. Discussed with Dr Alvarez, replacement of K, Diamox for this evening and planning to titrate to room air. Lasix 40mg PO daily at d/c if stable effusions/breathing on such dose. Dr Ochoa to see patient tomorrow. Review of Systems Review of Systems: All systems reviewed & are unremarkable except as noted in HPI & below Physical Exam Physical Exam: General: chronically ill appearing male sitting up in bed, on phone with his , NAD HEENT: head normocephalic, mmm, trachea midline Resp: diminished in bases bilaterally, decreased air entry bilaterally (slightly improved today), +crackles bilaterally, no wheezing, on 1L w/ SpO2 91%, not tachypneic, no cough noted CV: RRR, no m/r/g, no pitting edema, pulses decreased but palpable, no calf tenderness GI: +BS/soft/NT ; no Rodriguez MSK/Neuro/Skin: Silver[place] to R shoulder, sling intact, fingers mobile, pulses palpable, slightly tender to palpation (reported increased w/ movements this morning repositioning in bed) gangrenous appearance to bilateral toes (unchanged from prior), cool to touch but sensation intact, nontender to palpation of feet, some pain w/ examination between toes Psych: alert to person/place time, talking with on phone, cooperative Results & Data Results & Data ([facility]) Vital Signs (Past 12 Hours) Vital Signs Temp Pulse Pulse Resp BP Pulse Ox O2 Del Method 08/01/22 07:21 37.1 C 71 19 115/69 92 Nasal Cannula 08/01/22 03:30 37.0 C 70 20 101/60 96 Nasal Cannula 07/31/22 22:15 72 07/31/22 22:19 36.8 C 74 18 118/72 95 Nasal Cannula O2 Flow Rate 08/01/22 07:21 2 08/01/22 03:30 2 07/31/22 22:15 07/31/22 22:19 2 Laboratory Results 08/01/22 08/01/22 07/29/22 Range/Units 08:33 08:33 14:02 WBC 8.80 (4.8-10.8) K/ul RBC 3.49 L (4.63-6.08) M/uL Hgb 8.7 L (14.0-18.0) g/dl Hct 28.8 L (40.1-51.0) % MCV 82.5 (80.0-100.0) fL MCH 24.9 L (25.0-34.0) pg MCHC 30.2 L (32.0-36.0) g/dL RDW Std Deviation 57.9 H (36.4-46.3) fL RDW Coeff of Timbo 19.6 H (11.5-14.5) % Plt Count 452 H (130-400) K/uL MPV 9.3 L (9.4-12.4) fL Immature Gran % (Auto) 0.6 % Neut % (Auto) 77.0 % Lymph % (Auto) 11.6 % [place] % (Auto) 7.2 % Eos % (Auto) 3.3 % Baso % (Auto) 0.3 % Neut # (Auto) 6.78 H (1.4-6.5) K/uL Lymph # (Auto) 1.02 L (1.2-3.4) K/uL [place] # (Auto) 0.63 (0.24-0.82) K/uL Eos # (Auto) 0.29 (0-0.50) K/uL Baso # (Auto) 0.03 (0-0.2) K/uL Immature Gran # (Auto) 0.05 H (0.00-0.02) K/uL Sodium 136 (136-145) mmol/L Potassium 3.3 L (3.5-5.1) mmol/L Chloride 97 L (98-107) mmol/L Carbon Dioxide 33 H (21-32) mmol/L Anion Gap 6 (3-11) BUN 25 H (6-23) mg/dl Creatinine 0.79 (0.6-1.4) mg/dl Est Cr Clr Drug Dosing 81.0 ml/min Est GFR ( Amer) 104.7 ml/min Est GFR (Non-Af Amer) 90.3 ml/min BUN/Creatinine Ratio 31.6 H (10-20) Glucose 105 H (70-99(Fasting)) mg/dl Calcium 9.0 (8.5-10.1) mg/dl Phosphorus 3.8 (2.5-4.9) mg/dl Magnesium 1.9 (1.7-2.4) mg/dl Crossmatch See Detail PG Care Time/CCT Total # of Minutes Spent Total Time Spent with Patient: Total time spent is greater than 50% in coordination of care (as documented) at patient's floor/unit and/or counseling patient: Coding Level of Care Code 95266 Subseq Hosp Care Lvl 3 Diagnoses Acute respiratory failure with hypoxia J96.01 Bilateral pleural effusion J90 CAD (coronary artery disease) I25.10 Pulmonary hypertension I27.20 Anemia D64.9 Anemia type: unspecified type Status post reverse total replacement of right shoulder Z96.611 Peripheral arterial disease I73.9 Esophageal varices I85.00 (1) Anemia Anemia type: unspecified type Qualified Code(s): D64.9 - Anemia, unspecified
[2022-08-01] MEDS: prednisoLONE acetate 1% OP SUSP 5 ML BTL OP SCH ×3 (07:52→19:37)
[2022-08-01] MEDS: FLUTICASONE/VILANTEROL 100/25MCG 14 PUFFS/INHALER INH SCH (07:52)
[2022-08-01] MEDS: BRIMONIDINE TARTRATE 0.2% 5ML OP SCH ×2 (07:52→19:37)
[2022-08-01] MEDS: GABAPENTIN 400 MG CAP PO SCH ×3 (07:53→19:38)
[2022-08-01] MEDS: SENNA 8.6 MG TAB PO SCH ×2 (07:53→19:43)
[2022-08-01] MEDS: buPROPion HCl 100 MG TABLET PO SCH ×2 (07:53→19:39)
[2022-08-01] MEDS: METOPROLOL TARTRATE 25 MG TAB PO SCH ×2 (07:53→19:40)
[2022-08-01] MEDS: SULFAMETHOXAZOLE/TRIMETHOPRIM DS 800/160MG TAB PO SCH ×2 (07:53→19:41)
[2022-08-01] MEDS: DORZOLAMIDE/TIMOLOL 22.3/6.8MG/ML 10 ML BTL OP SCH ×3 (07:54→19:37)
[2022-08-01] MEDS: ASPIRIN 81 MG ECTAB PO SCH (07:54)
[2022-08-01] MEDS: MULTIVITAMIN TAB PO SCH (07:54)
[2022-08-01] MEDS: ATORVASTATIN 40 MG TAB PO SCH (07:54)
[2022-08-01] MEDS: PANTOprazole 40 MG TAB PO SCH ×2 (07:54→19:40)
[2022-08-01] MEDS: POTASSIUM CHLORIDE 20 MEQ/15 ML UDC PO SCH (07:56)
[2022-08-01] MEDS: FERROUS SULFATE 325 MG TAB PO SCH ×2 (07:56→17:12)
[2022-08-01] MEDS: FUROSEMIDE 40 MG/4 ML VIAL IV SCH (07:56)
[2022-08-01] MEDS: DOCUSATE SODIUM 100 MG CAP PO SCH ×2 (08:02→19:46)
[2022-08-01 09:27] LABS: Basophils # (auto) 0.03 K/uL (0-0.2); Basophils % (auto) 0.3 %; Eosinophils # (auto) 0.29 K/uL (0-0.50); Eosinophils % (auto) 3.3 %; Hematocrit (blood only) 28.8 % (40.1-51.0); Hemoglobin 8.7 g/dl (14.0-18.0); Immature Granulocytes # (auto) 0.05 K/uL (0.00-0.02); Immature Granulocytes % (auto) 0.6 %; Lymphocytes # (auto) 1.02 K/uL (1.2-3.4); Lymphocytes % (auto) 11.6 %; Mean Corpuscular Hemoglobin 24.9 pg (25.0-34.0); Mean Corpuscular Hgb Conc 30.2 g/dL (32.0-36.0); Mean Corpuscular Volume 82.5 fL (80.0-100.0); Mean Platelet Volume 9.3 fL (9.4-12.4); Monocytes # (auto) 0.63 K/uL (0.24-0.82); Monocytes % (auto) 7.2 %; Neutrophils # (auto) 6.78 K/uL (1.4-6.5); Platelet Count 452 K/uL (130-400); RDW Coefficient of Variation 19.6 % (11.5-14.5); RDW Standard Deviation 57.9 fL (36.4-46.3); Red Blood Count 3.49 M/uL (4.63-6.08)
--- NOTE | 2022-08-01 09:34 | XRay Report ---
XR chest 1V portable HISTORY: Dyspnea. COMPARISON: Chest 07/31/2022. FINDINGS: Recent right total shoulder arthroplasty. Prior left total shoulder arthroplasty. Old, heal ed right clavicle fracture again noted. Slightly rotated study. No pneumothorax. Right greater than l eft layering pleural effusions and asymmetric pulmonary edema is similar to the prior study. Bibasila r densities persist. The heart remains enlarged. IMPRESSION: No significant change. Pulmonary edema and layering pleural effusions/densities persist. ACT 112: Negative or not required by law. Electronically signed by: Krzysztof Tang M.D. 08/01/2022 9:32 AM
[2022-08-01 09:50] LABS: BUN Creatinine Ratio 31.6 (10-20); Est GFR (African American) 104.7 ml/min; Est GFR (Non-African American) 90.3 ml/min; Magnesium 1.9 mg/dl (1.7-2.4); Phosphorus 3.8 mg/dl (2.5-4.9); Potassium 3.3 mmol/L (3.5-5.1)
[2022-08-01] MEDS: HYDROmorphone INJ 0.5 MG/0.5 ML SYR IV PRN ×3 (10:00→19:47)
[2022-08-01] MEDS ORDERED: POTASSIUM CHLORIDE CRTAB 20 MEQ TABCR PO STA (10:15)
[2022-08-01] MEDS ORDERED: POTASSIUM CHLORIDE 20 MEQ/15 ML UDC PO ONE (17:00)
[2022-08-01] MEDS ORDERED: acetaZOLAMIDE 250 MG in DEXTROSE 5% 100 ML IV ONE (17:00)
[2022-08-01] MEDS: LATANOPROST 0.005% OP SOLN 2.5 ML BTL OP SCH (19:38)
[2022-08-01] MEDS: TAMSULOSIN HCL 0.4 MG CAP PO SCH (19:41)
[2022-08-01] MEDS: traZODone HCL 50 MG TAB PO SCH (19:46)
[2022-08-02] MEDS: ACETAMINOPHEN 500 MG TAB PO SCH ×3 (05:51→22:02)
[2022-08-02] MEDS: oxyCODONE HCL IR 5 MG TAB (IMMEDIATE RELEASE) PO PRN ×4 (05:53→22:41)
[2022-08-02 07:17] LABS: Basophils # (auto) 0.03 K/uL (0-0.2); Basophils % (auto) 0.2 %; Eosinophils # (auto) 0.06 K/uL (0-0.50); Eosinophils % (auto) 0.4 %; Hematocrit (blood only) 28.9 % (40.1-51.0); Hemoglobin 8.9 g/dl (14.0-18.0); Immature Granulocytes # (auto) 0.07 K/uL (0.00-0.02); Immature Granulocytes % (auto) 0.5 %; Lymphocytes # (auto) 0.79 K/uL (1.2-3.4); Lymphocytes % (auto) 5.8 %; Mean Corpuscular Hemoglobin 24.9 pg (25.0-34.0); Mean Corpuscular Hgb Conc 30.8 g/dL (32.0-36.0); Mean Corpuscular Volume 80.7 fL (80.0-100.0); Mean Platelet Volume 8.4 fL (9.4-12.4); Monocytes # (auto) 0.53 K/uL (0.24-0.82); Monocytes % (auto) 3.9 %; Neutrophils # (auto) 12.23 K/uL (1.4-6.5); Neutrophils % (auto) 89.2 %; Platelet Count 409 K/uL (130-400); RDW Coefficient of Variation 20.1 % (11.5-14.5); RDW Standard Deviation 58.5 fL (36.4-46.3); Red Blood Count 3.58 M/uL (4.63-6.08); White Blood Count 13.71 K/ul (4.8-10.8)
[2022-08-02 07:44] LABS: Albumin Globulin Ratio 0.6 (0.9-2); Albumin Level 2.6 gm/dl (3.4-5.0); BUN Creatinine Ratio 34.6 (10-20); Bilirubin,Total 0.3 mg/dl (0.2-1.0); Calcium 8.8 mg/dl (8.5-10.1); Creatinine Clr Calc Pharmacy 82.3 ml/min; Est GFR (African American) 105.3 ml/min; Est GFR (Non-African American) 90.8 ml/min; Globulin 4.3 gm/dl (2.5-4.0); Magnesium 1.9 mg/dl (1.7-2.4); Total Protein 6.9 gm/dl (6.0-8.3)
--- NOTE | 2022-08-02 07:47 | Hospitalist Progress Note ---
Date of Service August 02, 2022 Assessment & Plan (1) Acute respiratory failure with hypoxia: Plan: This is a 71-year-old male with a history of HFpEF, bilateral pleural effusions, atrial fibrillation, coronary artery disease, peripheral artery disease, hyperlipidemia, anemia, pulmonary hypertension who presented to [facility] for R shoulder replacement on 07/26 and subsequently developed an increasing oxygen requirement, which is primarily suspected to be secondary to pulmonary edema Primary suspicion based on clinical appearance is acute HFpEF / pulmonary edema / worsening of known pleural effusions. VTE a possibility but will await labs; on ASA for post-surgical PPX. PNA is also a possibility Prior ECHO in October w/ normal EF, mild concentric LVH, EF 65-70%. Patient had thoracentesis prior to surgery for 500cc with pulmonology -- transudative fluid 06/30 Consulted POD#8 s/p reverse shoulder w/ increased O2 requirement 2-4L with NO O2 at baseline reported and placed on BiPAP to maintain adequate oxygenation VBG unremarkable CXR w/ evidence CHF/pulm edema/layering effusions w/ dependent consolidation, increased from 07/07 imaging Consulted pulm s/p thoracentesis for 1650mL cloudy serous fluid 07/[address] Alvarez Tx to PCU for afib/flutter -- converted back, maintained. Prior pAfib seen by Dr Sheffield but opted not for AC at that time. Cards consulted inpatient. Should ideally be on Eliquis BID vs xarelto when bleeding ensured stable/dc. Continues on tele NSR. TSH wnl 1u PRBC for hgb 7.2 , did get 1 dose of Venofer, remains on PO supplementation Repeat ECHO LV systolic function normal. Grade I diastolic dysfunction. Mild cLVH. RVSP elevated 40-50mmHG. Mild aortic root dilatation Continued lasix, 40mg IV/20mg IV daily, had placed evening lasix 20mg on hold while giving diamox x2 last 2 evenings (07/31-08/01) for elevated bicarb on AM labs, since resolved Discussed with pulm ? pleurx for continued effusion, compressive atelectasis vs continued diuretics --> no pleurx given risk for infection --> deferred to c ardiology for diuresis Discussed with Dr Mehta this evening --> given Cr stable w/ continued diuretics and minimal improvement on CXR w/ 40&20 --> increased to 40mg IV BID for now and will monitor response. Additional K supplementation w/ lasix Prior admits w/ report possible noncompliance w/ lasix at home Of note, was eating cheeseburger and vietnamese fries afternoon 08/01, confirmed again w/ patient today. Already was on low sodium diet, added fluid restriction and AHA. Educated to avoid excessive salt/fluid retention Remains on 1-3L NC to maintain saturations CM following, wanted update on timing for discharge. Discussed fluid management/O2 requirement w/ cards/pulm, only thing keeping him here currently. If improvement w/ increased diuretics on AM cxr/able to titrate off O2 and consider 2 step w/ ambulation and kidney function stable, could potentially discharge on increased dose of diuretics Of note, given anemia requiring transfusion GI consulted given prior cirrhosis/esophageal varices on EGD earlier this year w/ Dr Rush/upper GI discomfort --> agreed to continue PPI BID, carafate. No inpatient scope. Plavix resumed (2) Bilateral pleural effusion: Plan: Bilateral pleural effusions, known. follows w/ [facility] pulmonology s/p thoracentesis with 500cc fluid removal on 06/30/22 on the RIGHT side Was hospitalized in January 2021 for acute CHF for the same -- had thoracentesis at this time too CXR w/ layering effusions, s/p thoracentesis with Dr Alvarez 07/28 Diuretics as outlined above CXR in AM (3) CAD (coronary artery disease): Plan: CAD/PAD/HLD, paroxysmal afib Catheterization during January 2021 admission with acute CHF -- demonstrated triple-vessel CAD that is currently being managed medically. Follows with Dr Sheffield for hx paroxysmal afib (patient prefer conservative approach no further monitoring/anticoagulation), 2nd degree AV block (had mobitz 1 second degree-AV identified while on BB, but patient back on BB due to CAD), patient declined implantable monitoring in past. Continue ASA 81mg, statin, metoprolol tartrate 25mg BID (?switching to succinate at d/c) Cardiology consulted as above given patient flip afib/flutter and transferred to PCU. Consideration for anticoagulation if patient agreeable with Xarelto vs Eliquis as above. Would have CM tom check. Would need ASA discontinued in that event and continue anticoagulation/Plavix Keep K~4, Mag ~2 (additional K supplementation with Lasix) (4) Pulmonary hypertension: Plan: Pulmonary HTN History noted. Not appreciated on last TTE in 10/2021 [place] [facility] [place], consulted while inpatient ?sarcoid -- NO elevation in calcium. discussed w/ pulm, doubtful (5) Anemia: Plan: Chronic iron deficiency anemia with baseline around 9-10 Hgb 8.8 on AM labs, however volume overloaded as above, will monitor. No bleeding reported Iron panel w/ low iron/trans % sat -- Venofer x 1, 1u PRBC 07/29 Hgb stable on repeat w/ dose of Lasix for volume overload as above, suspect continued lows from volume overload Remains on daily PO supplementation Monitor for any bleeding (6) Status post reverse total replacement of right shoulder: Plan: POD # 13 p Right Reverse Total Shoulder Arthroplasty(Right) with open biceps tenodesis as a distinct and separate procedure (modifier 59)- Yoel Ding, DO on 07/20 EBL 150cc Pain control/bowel regimen/DVT prophylaxis per primary service Was anticipating discharge 07/27, however see above, developed acute respiratory failure (7) Peripheral arterial disease: Plan: [facility] [place] [facility]/p LLE angioplasty with stenting in October this year, does have narrowing/marked stenosis distal superficial femoral artery on duplex in March 19 Plavix held for shoulder surgery, resumed as above but now again on hold for anemia but given anemia/need for PRBC placed back on hold Vascular consulted -- rec f/u with previous vascular surgeon for amputation as toes w/ demarcation (8) Esophageal varices: Plan: hx cirrhosis, ?2nd RILEY, no reported etoh use/abuse however did have B12 defici ency noted esophageal varices on EGD earlier this year with Dr rush, consulted given anemia and GI discomfort. Increased PPI to BID in meantime GI recs continuing PPI BID, no changes to current regimen Plan continued inpatient stay increased diuretics as above and monitor labs/CXR in AM, titrate O2 as able Pending O2 requirement/CXR, consider 2 step and discharge on increased dose of diuretics Admission and Anticipated Discharge Date Admission Date: July 26, 2022 Supervising Physician Co-Signing Physician Notes PA Supervision Note: I did not personally see or examine the patient today, but I verified all vargas points of ANGELY Baxter's assessment and plan with the following exceptions/additions: None Subjective eval this afternoon, on1 L. When off desaturates quickly. Discussed may need increased diuretics, does confirm he was eating cheeseburger and fries yesterday. Discussed should be on low salt diet and may need to rest rict fluid intake. Already on low sodium diet, changed to AHA/low sodium, will add 1800ml fluid restriction as well Got dilaudid and has some confusion w/ such after last evening reported. Ammonia checked, wnl. UA repeated -- negative for infection. During evaluation, patient knows he's in the hospital, had shoulder surgery, year 2021 currently. He is anxious to get to rehab and be moving as he's only getting weaker here. States he is NOT wearing the BiPAP tonight. Irritated his face. Did decrease dilaudid 0.25mg. Discussed with Dr Mehta, and as long as Cr stable, would push diuretics, ok to increase to 40mg IV BID for now/monitor response. Can reach out in AM if continued issues. Review of Systems Review of Systems: All systems reviewed & are unremarkable except as noted in HPI & below Physical Exam Physical Exam: General/psych: chronically ill appearing male sitting up in bed, NAD, actually states feeling better but wondering when he's going to rehab. Alert to person/place (knows in hospital, for what), 2021, he did think it was June initially. neck without tracheal deviation, mmm Rsp: decreased air entry bilaterally, diminished in the bases without wheezing, +bibasilar crackles, on 2L NC CV: RRR (NSR in 80s on monitor), no m/r/g or pitting edema, calves without tenderness GI: +BS, soft, NONTENDER without sierra MSK/neuro/skin: sling to RUE, fingers mobile, pulses palpable, NVI, [place] in place, no hematoma noted gangrenous appearance b/l feet (unchanged), demarcated, cool to the touch but sensation intact, no edema, decreased pulses but palpable Results & Data Results & Data ([facility]) Vital Signs (Past 12 Hours) Vital Signs Temp Pulse Pulse Pulse Resp BP Pulse Ox 08/02/22 07:21 92 H 08/02/22 07:03 36.9 C 87 18 104/66 91 08/02/22 04:13 91 H 25 H 94 08/02/22 03:10 36.5 C 80 20 113/72 96 08/01/22 23:48 71 29 H 89 L 08/01/22 23:23 36.8 C 75 18 114/68 08/01/22 23:20 66 08/01/22 22:26 36.4 C L 71 12 119/68 91 08/01/22 21:41 O2 Del Method O2 Flow Rate 08/02/22 07:21 08/02/22 07:03 Nasal Cannula 3 08/02/22 04:13 6 08/02/22 03:10 BiPAP 08/01/22 23:48 9 08/01/22 23:23 08/01/22 23:20 08/01/22 22:26 Nasal Cannula 1 08/01/22 21:41 Nasal Cannula 1 Laboratory Results 08/02/22 08/02/22 08/02/22 Range/Units 10:30 08:06 08:02 WBC (4.8-10.8) K/ul RBC (4.63-6.08) M/uL Hgb (14.0-18.0) g/dl Hct (40.1-51.0) % MCV (80.0-100.0) fL MCH (25.0-34.0) pg MCHC (32.0-36.0) g/dL RDW Std Deviation (36.4-46.3) fL RDW Coeff of Timbo (11.5-14.5) % Plt Count (130-400) K/uL MPV (9.4-12.4) fL Immature Gran % (Auto) % Neut % (Auto) % Lymph % (Auto) % [place] % (Auto) % Eos % (Auto) % Baso % (Auto) % Neut # (Auto) (1.4-6.5) K/uL Lymph # (Auto) (1.2-3.4) K/uL [place] # (Auto) (0.24-0.82) K/uL Eos # (Auto) (0-0.50) K/uL Baso # (Auto) (0-0.2) K/uL Immature Gran # (Auto) (0.00-0.02) K/uL Spherocytes Sodium (136-145) mmol/L Potassium (3.5-5.1) mmol/L Chloride (98-107) mmol/L Carbon Dioxide (21-32) mmol/L Anion Gap (3-11) BUN (6-23) mg/dl Creatinine (0.6-1.4) mg/dl Est Cr Clr Drug Dosing ml/min Est GFR ( Amer) ml/min Est GFR (Non-Af Amer) ml/min BUN/Creatinine Ratio (10-20) Glucose (70-99(Fasting)) mg/dl Calcium (8.5-10.1) mg/dl Magnesium (1.7-2.4) mg/dl Total Bilirubin (0.2-1.0) mg/dl AST (13-39) U/L ALT (7-52) U/L Alkaline Phosphatase (34-104) U/L Ammonia 20.0 (18-72) umol/L Total Protein (6.0-8.3) gm/dl Albumin (3.4-5.0) gm/dl Globulin (2.5-4.0) gm/dl Albumin/Globulin Ratio (0.9-2) Procalcitonin 0.16 (0-0.5) ng/ml Urine Color Yellow Urine Appearance Clear (Clear) Urine pH 7.5 (4.5-7.5) Ur Specific [place] 1.013 (1.000-1.030) Urine Protein Negative (Negative) Urine Glucose (UA) Negative (Negative) Urine Ketones Negative (Negative) Urine Blood Negative (Negative) Urine Nitrite Negative (Negative) Urine Bilirubin Negative (Negative) Urine Urobilinogen Negative (Negative) Ur Leukocyte Esterase Negative (Negative) 08/02/22 08/02/22 Range/Units 07:06 07:06 WBC 13.71 H (4.8-10.8) K/ul RBC 3.58 L (4.63-6.08) M/uL Hgb 8.9 L (14.0-18.0) g/dl Hct 28.9 L (40.1-51.0) % MCV 80.7 (80.0-100.0) fL MCH 24.9 L (25.0-34.0) pg MCHC 30.8 L (32.0-36.0) g/dL RDW Std Deviation 58.5 H (36.4-46.3) fL RDW Coeff of Timbo 20.1 H (11.5-14.5) % Plt Count 409 H (130-400) K/uL MPV 8.4 L (9.4-12.4) fL Immature Gran % (Auto) 0.5 % Neut % (Auto) 89.2 % Lymph % (Auto) 5.8 % [place] % (Auto) 3.9 % Eos % (Auto) 0.4 % Baso % (Auto) 0.2 % Neut # (Auto) 12.23 H (1.4-6.5) K/uL Lymph # (Auto) 0.79 L (1.2-3.4) K/uL [place] # (Auto) 0.53 (0.24-0.82) K/uL Eos # (Auto) 0.06 (0-0.50) K/uL Baso # (Auto) 0.03 (0-0.2) K/uL Immature Gran # (Auto) 0.07 H (0.00-0.02) K/uL Spherocytes Occasional Sodium 133 L (136-145) mmol/L Potassium 4.0 D (3.5-5.1) mmol/L Chloride 99 (98-107) mmol/L Carbon Dioxide 29 (21-32) mmol/L Anion Gap 5 (3-11) BUN 27 H (6-23) mg/dl Creatinine 0.78 (0.6-1.4) mg/dl Est Cr Clr Drug Dosing 82.3 ml/min Est GFR ( Amer) 105.3 ml/min Est GFR (Non-Af Amer) 90.8 ml/min BUN/Creatinine Ratio 34.6 H (10-20) Glucose 97 (70-99(Fasting)) mg/dl Calcium 8.8 (8.5-10.1) mg/dl Magnesium 1.9 (1.7-2.4) mg/dl Total Bilirubin 0.3 (0.2-1.0) mg/dl AST 29 (13-39) U/L ALT 23 (7-52) U/L Alkaline Phosphatase 183 H (34-104) U/L Ammonia (18-72) umol/L Total Protein 6.9 (6.0-8.3) gm/dl Albumin 2.6 L (3.4-5.0) gm/dl Globulin 4.3 H (2.5-4.0) gm/dl Albumin/Globulin Ratio 0.6 L (0.9-2) Procalcitonin (0-0.5) ng/ml Urine Color Urine Appearance (Clear) Urine pH (4.5-7.5) Ur Specific [place] (1.000-1.030) Urine Protein (Negative) Urine Glucose (UA) (Negative) Urine Ketones (Negative) Urine Blood (Negative) Urine Nitrite (Negative) Urine Bilirubin (Negative) Urine Urobilinogen (Negative) Ur Leukocyte Esterase (Negative) Diagnostic Findings Chest X-Ray 08/02/22 07:00 XR chest 1V portable CLINICAL HISTORY: f/u COMPARISON STUDY: Chest August 01, 2022. FINDINGS: Bilateral shoulder arthroplasties are incidentally noted. Small bilateral pleural effusions with associated bilateral airspace opacities are similar to prior exam. Right lung volume loss is unchanged. Pulmonary edema persists. Cardiomediastinal silhouette is stable. There is no pneumothorax. IMPRESSION: No significant change in appearance of the chest. Pulmonary edema with small bilateral pleural effusions and associated airspace opacities. ACT 112: Negative or not required by law. Electronically signed by: Kalyan Martinez M.D. 08/02/2022 12:00 PM PG Care Time/CCT Total # of Minutes Spent Total Time Spent with Patient: Total time spent is greater than 50% in coordination of care (as documented) at patient's floor/unit and/or counseling patient: Coding Level of Care Code 85718 Subseq Hosp Care Lvl 3 Diagnoses Acute respiratory failure with hypoxia J96.01 Bilateral pleural effusion J90 CAD (coronary artery disease) I25.10 Pulmonary hypertension I27.20 Anemia D64.9 Anemia type: unspecified type Status post reverse total replacement of right shoulder Z96.611 Peripheral arterial disease I73.9 Esophageal varices I85.00 (1) Anemia Anemia type: unspecified type Qualified Code(s): D64.9 - Anemia, unspecified
[2022-08-02 08:08] LABS: Spherocytes Occasional
[2022-08-02] MEDS: HYDROmorphone INJ 0.5 MG/0.5 ML SYR IV PRN ×3 (09:09→20:10)
[2022-08-02] MEDS: buPROPion HCl 100 MG TABLET PO SCH ×2 (09:14→21:58)
[2022-08-02] MEDS: GABAPENTIN 400 MG CAP PO SCH ×3 (09:15→22:01)
[2022-08-02] MEDS: PANTOprazole 40 MG TAB PO SCH ×2 (09:15→22:00)
[2022-08-02] MEDS: SENNA 8.6 MG TAB PO SCH ×2 (09:15→21:59)
[2022-08-02] MEDS: FERROUS SULFATE 325 MG TAB PO SCH ×2 (09:15→17:30)
[2022-08-02] MEDS: METOPROLOL TARTRATE 25 MG TAB PO SCH ×2 (09:16→22:00)
[2022-08-02] MEDS: MULTIVITAMIN TAB PO SCH (09:16)
[2022-08-02] MEDS: ASPIRIN 81 MG ECTAB PO SCH (09:16)
[2022-08-02] MEDS: ATORVASTATIN 40 MG TAB PO SCH (09:17)
[2022-08-02] MEDS: SULFAMETHOXAZOLE/TRIMETHOPRIM DS 800/160MG TAB PO SCH ×2 (09:18→21:59)
[2022-08-02] MEDS: prednisoLONE acetate 1% OP SUSP 5 ML BTL OP SCH ×3 (09:22→21:58)
[2022-08-02] MEDS: BRIMONIDINE TARTRATE 0.2% 5ML OP SCH ×2 (09:27→21:57)
[2022-08-02] MEDS: FLUTICASONE/VILANTEROL 100/25MCG 14 PUFFS/INHALER INH SCH (09:28)
[2022-08-02] MEDS: POTASSIUM CHLORIDE 20 MEQ/15 ML UDC PO SCH (09:30)
[2022-08-02] MEDS: FUROSEMIDE 40 MG/4 ML VIAL IV SCH ×2 (09:31→21:57)
[2022-08-02] MEDS: DORZOLAMIDE/TIMOLOL 22.3/6.8MG/ML 10 ML BTL OP SCH ×3 (09:33→21:58)
--- NOTE | 2022-08-02 09:47 | Consultation ---
Date of Consultation August 02, 2022 Assessment & Plan (1) Peripheral arterial disease: Pt with significant PAD and gangrene of BLE, which has been present for months. Pt discussed with Dr Ochoa. Pt has already been revascularized at the [facility] in [place] for LLE. Toes are demarcating. Pt without rest pain. Pt with continued pulmonary edema and requiring supplemental O2. Recommend pt follow up as outpt with his vascular surgeons in [place] for his chronic PAD. No acute indications for vascular surgical intervention at this time. Please call if needed. History of Present Illness Reason for Consultation: PAD, toe gangrene Attending Physician: Yoel Ding DO History of Present Illness 71 yo m with hx of PAD, afib/ flutter, osteoarthritis, CAD, pulmonary htn, hyperlipidemia, anemia, chronic resp failure, admitted after a R total shoulder arthroplasty on 07/20, seen in consultation today for gangrene of BL toes and PAD. Pt is a poor historian, but states has followed at the [facility] in [place] for his vascular care for many years. States he has had at least 3-4 angiogram procedures in LLE, but never in RLE. Most recently, had a LLE angio approx 1-2 months ago, but pt does not know what was done and no records are available. Pt denies pain in toes, but states most of his toes are numb and have been dis colored for at least 8 months. [facility], but they were waiting for them to demarcate. Pt states he does not know if he has any upcoming appts with the [facility]. Pt admits R shoulder pain. Denies BARRETO, fever, chest pain, SOB, abd pain, N/V, rest pain, claudication, other complaints. Imaging demonstrates significant PAD in BLE. Allergies Allergy/AdvReac Type Severity Reaction Status Date / Time No Known Allergies Allergy Unknown Verified 07/20/22 10:41 Home Medications Medication Instructions Recorded Confirmed Type tamsulosin 0.4 mg capsule (Flomax) 0.4 mg PO QPM 01/10/19 07/20/22 History pantoprazole 40 mg tablet,delayed 40 mg PO QAM 08/01/20 07/07/22 History release multivitamin 1 tab PO QAM 10/05/20 07/20/22 History omega 4-koo-rpa-fish oil 1,200 mg 1 cap PO QAM 10/05/20 07/07/22 History (144 mg-216 mg) capsule (Fish Oil) trazodone 150 mg tablet 150 mg PO HS 10/05/20 07/20/22 History cholecalciferol (vitamin D3) 50 50 mcg PO QAM 10/16/20 07/20/22 History mcg (2,000 unit) capsule lidocaine 5 % topical patch 1 patch topical DAILY PRN Pain 10/16/20 07/20/22 History (Lidoderm) metoprolol tartrate 50 mg tablet 25 mg PO BID 01/16/21 07/20/22 History glucosamine-chondroitin 250 mg-200 1 tab PO BID 07/03/21 07/07/22 History mg tablet (Osteo Bi-Flex) atorvastatin 40 mg tablet 40 mg PO QAM 07/29/21 07/20/22 History fluticasone furoate 100 1 inh inhalation BID 07/29/21 07/20/22 History mcg-vilanterol 25 mcg/dose inhalation powder (Breo Ellipta) ferrous sulfate 325 mg (65 mg 325 mg PO QAM 11/09/21 07/20/22 History iron) tablet brimonidine 0.2 % eye drops 1 drp ophthalmic (eye) BID #1 btl 11/26/21 07/20/22 Rx dorzolamide 22.3 mg-timolol 6.8 1 drp ophthalmic (eye) TID #1 btl 11/26/21 07/20/22 Rx mg/mL eye drops latanoprost 0.005 % eye drops 1 drp ophthalmic (eye) HS #1 btl 11/26/21 07/20/22 Rx prednisolone acetate 1 % eye 1 drp ophthalmic (eye) TID #1 btl 11/26/21 07/20/22 Rx drops,suspension sulfamethoxazole 800 1 tab PO Q12H MRSA wound Left Hip 11/26/21 07/07/22 Rx mg-trimethoprim 160 mg tablet #0 tabs (Bactrim DS) food supplemt, lactose-reduced 1 ea PO TID 12/16/21 07/20/22 History 0.05 gram-1.5 kcal/mL oral liquid (Ensure Plus) gauze bandage 4" X 4" (Curad Gauze 12/16/21 06/24/22 History Pad) povidone-iodine 10 % topical 1 applic topical DAILY 12/16/21 07/20/22 History solution HEEL LIFTS #1 ea 12/22/21 06/24/22 Rx albuterol sulfate 90 mcg/actuation 2 puff inhalation BID PRN 03/08/22 07/20/22 History aerosol inhaler Shortness Of Breath Or Wheezing gabapentin 400 mg capsule 400 mg PO TID #270 caps 03/17/22 07/20/22 Rx bupropion HCl 100 mg tablet 200 mg PO BID 05/25/22 07/20/22 History furosemide 40 mg tablet (Lasix) 20 mg PO QAM 05/25/22 07/20/22 History methocarbamol 500 mg tablet 500 mg PO TID PRN MUSCLE RELAXANT 05/25/22 07/20/22 History potassium chloride 20 mEq/15 mL See Rx Instructions .Route .COMPLEX 05/25/22 07/20/22 History oral liquid sennosides 8.6 mg tablet 8.6 mg PO DAILY 05/25/22 07/20/22 History metolazone 5 mg tablet 5 mg PO DAILY PRN edema #30 tabs 05/26/22 07/20/22 Rx hydrocodone 5 mg-acetaminophen 325 1 tab PO TID PRN Pain 06/18/22 07/20/22 History mg tablet aspirin 81 mg tablet 81 mg PO DAILY 07/02/22 07/20/22 History oxycodone-acetaminophen 5 mg-325 1 tab PO Q6H PRN pain #60 tabs 07/21/22 Rx mg tablet (Percocet) terbinafine HCl 250 mg tablet 250 mg PO DAILY #30 tabs 07/26/22 Rx Patient History Medical History Anemia Anxiety Stable/controlled per pt Follows with [facility] Atrial flutter, paroxysmal Per cardio visit 04/21/22, "We remain uncertain as to his atrial fibrillation burden and he continues to prefer a conservative approach meaning no further monitoring and no anticoagulation." Chronic back pain Chronic hypoxemic respiratory failure Follows with [facility], previously on supplementation oxygen (has not had for several months) Chronic osteomyelitis of hip Bactrim ppx Chronic ulcer of great toe Follows with [place] [facility] COVID-19 virus infection 08/2020 > Covid PNA, acute respiratory failure with hypoxia requiring BiPAP, also hospitalized 09/2020 with B/L pleural effusion and differential including potential correlation to recent COVID illness Degeneration of cervical intervertebral disc Depression Stable/controlled per pt Follows with [facility] Encounter for pre-operative examination Glaucoma Hearing deficit Hearing aid (left) Heart failure Diastolic Follows with ([facility]/Dr. Sheffield) History of blood transfusion [id number] (with multiple hip surgeries) Hx MRSA infection Left hip since 2009, Chronic/care home bactrim daily Hyperlipidemia Hypokalemia Leg length discrepancy RLE > LLE s/p multiple left hip revisions (per patient, missing hip joint) due to complications from hip surgery/revisions/MRSA infection- on chronic preventative Bactrim-- uses shoe with elevated heel/crutches Osteoarthritis Osteoporosis Peptic ulcer disease 2018 Pleural effusion Recurrent (most recent need for drainage several months ago) Pneumonia Recent hospitalization 04/2022 PNA/pleural effusion ([facility]) Pulmonary hypertension Restless leg syndrome Transient ischemic attack (TIA) ~2014 Surgical History H/O eye surgery 2 DRAINAGE TUBES RT/LEFT EYES FOR GLAUCOMA currently in place Retinal lift and cadaver placement week of 08/03/2021 in [place] History of bilateral cataract extraction History of cardiac cath 01/2021 [facility]: "Medical management of moderate to severe CAD" NO STENTS History of colonoscopy History of esophagogastroduodenoscopy (EGD) History of hip surgery LEFT HIP SURGERY/REVISIONS (TOTAL OF 9 SURGERIES) History of laminectomy L3-L5 laminectomy: 05/12/15: Grade view 1, MAC#3, ETT 8.0 (atraumatic DL x 1) at [facility] History of thoracentesis 04/2022 [facility] History of tonsillectomy and adenoidectomy History of tooth extraction Status post reverse total arthroplasty of left shoulder 07/03/2019: Grade 1 view, MAC#3, ETT#8.0, atraumatic x 1 + PNB. Family History Father , about age 60 Cerebral aneurysm Mother No pertinent past medical history Grandmother (Maternal) Myocardial infarction Denies family history of Ovarian cancer Prostate cancer Crohn's disease Breast cancer Colorectal cancer Ulcerative colitis Social History Smoking Status: Former smoker Tobacco Type: Smokeless Tobacco (Dip or Chew) Age Started Using Tobacco: 15; packs per day: 1.5; Cigarettes Per Day: 1 ppd over 20yrs ago; Smoking End Date: Quit 20 years ago (hx 1 PPD); Second Hand Exposure: No; Do You Dip or Chew Tobacco: No (Quit 6 months ago); Tobacco Cessation Education Requested by Patient: No Hx Alcohol Use: No Hx Substance Use: Yes Last Used Substance Other:: hx medical marijuana card- does not currently use- last use 1 yr ago Preferred Language: Sammarinese Communication Ability: Effective Visual Impairment: No Limitations Hearing Ability: Normal Carpet Binder Required: No Beliefs That Will Affect Care: None marital status: Current Living Situation: Spouse current occupational status: retired 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 [employer] How many Children do You have: 2 How many Children do You have Comment: 1 is Other Information That Helps Us Care for You: No Feels Safe at Home: Yes Safety Concerns: Feels Safe At This Time Childhood Exposure to Second-Hand Smoke: Yes caffeine: Yes Dental Care, Regularly: No Physical Activity Frequency: Does not Exercise Physical Activity Frequency Comment: Rehab twice a week Seatbelt Use: sometimes Sunscreen Use: No Assistive Devices: Crutches Review of Systems Review of Systems: All systems reviewed & are unremarkable except as noted in HPI & below Physical Exam Constitutional: cooperative, comfortable and + malnourished; not in distress ENMT: Ears: no hearing impairment Neck: trachea midline Respiratory: normal respiratory effort Auscultation: + diminished lung sounds and + crackles (coarse sounds) Cardiovascular: Rate/Rhythm: + irregularly irregular Vessels: femoral pulses present, posterior tibial pulses present (nonpalpable BLE), dorsalis pedis pulses present (RLE +1, LLE nonpalpable) and radial pulses present; + abnormal peripheral pulses Extremities: + abnormal capillary refill (dry gangrene LLE 1-4, RLE 1-2) and no edema Gastrointestinal (Abdomen): Inspection/Auscultation: abdomen normal to inspection and normal bowel sounds Percussion/Palpation: abdomen soft; abdomen nontender Skin: + eschar (toes) Neurologic: moves all extremities and awake; no focal motor deficits and not confused (but poor historian) Psychiatric: A+Ox3, euthymic affect Results & Data ([facility]) Vital Signs (Past 12 Hours) Vital Signs Temp Pulse Pulse Pulse Resp BP Pulse Ox 08/02/22 07:21 92 H 08/02/22 07:03 36.9 C 87 18 104/66 91 08/02/22 04:13 91 H 25 H 94 08/02/22 03:10 36.5 C 80 20 113/72 96 08/01/22 23:48 71 29 H 89 L 08/01/22 23:23 36.8 C 75 18 114/68 08/01/22 23:20 66 08/01/22 22:26 36.4 C L 71 12 119/68 91 08/01/22 21:41 O2 Del Method O2 Flow Rate 08/02/22 07:21 08/02/22 07:03 Nasal Cannula 3 08/02/22 04:13 6 08/02/22 03:10 BiPAP 08/01/22 23:48 9 08/01/22 23:23 08/01/22 23:20 08/01/22 22:26 Nasal Cannula 1 08/01/22 21:41 Nasal Cannula 1
[2022-08-02] MEDS: DOCUSATE SODIUM 100 MG CAP PO SCH ×2 (09:56→22:08)
[2022-08-02] MEDS: CLOPIDOGREL BISULFATE 75 MG TAB PO SCH (09:57)
[2022-08-02 11:14] LABS: Appearance Urine Clear (Clear); Bilirubin Urine Negative (Negative); Blood Urine Negative (Negative); Color Urine Yellow; Glucose Urine UA Negative (Negative); Ketones Urine Negative (Negative); Leukocyte Esterase Urine Negative (Negative); Nitrite Urine Negative (Negative); Protein Urine Negative (Negative); Specific Gravity Urine 1.013 (1.000-1.030); Urobilinogen Urine Negative (Negative); pH Urine 7.5 (4.5-7.5)
--- NOTE | 2022-08-02 12:01 | XRay Report ---
XR chest 1V portable CLINICAL HISTORY: f/u COMPARISON STUDY: Chest August 01, 2022. FINDINGS: Bilateral shoulder arthroplasties are incidentally noted. Small bilateral pleural effusions with associated bilateral airspace opacities are similar to prior exam. Right lung volume loss is un changed. Pulmonary edema persists. Cardiomediastinal silhouette is stable. There is no pneumothorax. IMPRESSION: No significant change in appearance of the chest. Pulmonary edema with small bilateral p leural effusions and associated airspace opacities. ACT 112: Negative or not required by law. Electronically signed by: Kalyan Martinez M.D. 08/02/2022 12:00 PM
--- NOTE | 2022-08-02 14:41 | Pulmonology Progress Note ---
Date of Service August 02, 2022 Assessment & Plan (1) Acute respiratory failure with hypoxia: (2) Bilateral pleural effusion: (3) Pulmonary edema: Chronicity: chronic Qualified Code(s): J81.1 - Chronic pulmonary edema (4) Shortness of breath: (5) (HFpEF) heart failure with preserved ejection fraction: Plan Patient has evidence of continued pulmonary edema. Recommend continued diuresis. Will defer to primary team. Recommend touching base with with cardiology with regards to diuresis. Would not recommend Pleurx catheter due to increased risk of systemic infection given recent surgeries and gangrenous toes. Recommend optimizing volume status with diuretic compliance. Consider palliative care consultation given the chronic and severe issues that the patient suffers from. Thank you for the consultation. Pulmonary to sign off. Admission and Anticipated Discharge Date Admission Date: July 26, 2022 Subjective Patient denies any shortness of breath or cough. Currently requiring low-flow oxygen. Discussed with nurse at bedside. Review of Systems Review of Systems: All systems reviewed & are unremarkable except as noted in HPI & below Physical Exam Physical Exam: Constitutional: Respiratory distress HEENT: EOMI, PERRLA Respiratory system: Decreased air entry bilaterally, no wheeze, no rhonchi, positive crackles bilateral lower lobes CVS: S1-S2 positive, no murmurs or gallops Abdomen: Soft, nontender, nondistended, positive bowel sounds x4 Extremities: +2 pulses bilaterally radialis/ dorsalis pedis, no cyanosis, no edema, gangrene of the toes appreciated in bilateral feet Neuro: Awake alert oriented x3 Psych: Normal mood and affect G/U: No Rodriguez Skin: no rashes, warm and dry Lymphatic: no cervical or axillary lymphadenopathy Results & Data Results & Data ([facility]) Vital Signs (Past 12 Hours) Vital Signs Temp Pulse Pulse Pulse Resp BP Pulse Ox 08/02/22 11:01 36.5 C 74 20 106/72 90 08/02/22 11:02 08/02/22 07:21 92 H 08/02/22 07:03 36.9 C 87 18 104/66 91 08/02/22 04:13 91 H 25 H 94 08/02/22 03:10 36.5 C 80 20 113/72 96 O2 Del Method O2 Flow Rate 08/02/22 11:01 Nasal Cannula 1 08/02/22 11:02 Nasal Cannula 1 08/02/22 07:21 08/02/22 07:03 Nasal Cannula 3 08/02/22 04:13 6 08/02/22 03:10 BiPAP PG Care Time/CCT Total # of Minutes Spent Total Time Spent with Patient: Total time spent is greater than 50% in coordination of care (as documented) at patient's floor/unit and/or counseling patient: Coding Level of Care Code 20491 Subseq Hosp Care Lvl 2 Diagnoses Acute respiratory failure with hypoxia J96.01 Bilateral pleural effusion J90 Pulmonary edema J81.1 Chronicity: chronic Shortness of breath R06.02 (HFpEF) heart failure with preserved ejection fraction I50.30
--- NOTE | 2022-08-02 17:14 | Orthopedic Progress Note ---
Date of Service August 02, 2022 Assessment & Plan (1) Status post reverse total replacement of right shoulder: Brennan is still dealing with multiple medical issues, including hypoxia and gangrene of his toes. Pulmonology has signed off and the hospitalist is handling his hypoxia. He is still on 2.5 L per nasal cannula. Vascular will perform an angiogram of his legs on Tuesday. He is doing well with regards to his right shoulder. He is stable for discharge when medically ready. Subjective Brennan was seen and examined at bedside this morning. Overall is doing well with his shoulder. He is not having much pain. He was seen by vascular today and is scheduled to have an angiogram on Tuesday. He is still requiring oxygen. He is being followed by the hospitalist.. Review of Systems All systems reviewed & are unremarkable except as noted in HPI & below. Physical Exam On physical examination the right shoulder, the incision looks good. There is no drainage. He is neurovascular intact.. Results & Data Results & Data Laboratory Results . Diagnostic Findings . PG Care Time/CCT Total # of Minutes Spent Total Time Spent with Patient: Total time spent is greater than 50% in coordination of care (as documented) at patient's floor/unit and/or counseling patient: Coding Level of Care Code 27798 Post Operative Follow-Up Diagnoses Status post reverse total replacement of right shoulder Z96.611
[2022-08-02] MEDS ORDERED: MAGNESIUM SULFATE / D5W 1 GM/100 ML BAG IV ONE (18:53)
[2022-08-02] MEDS ORDERED: POTASSIUM CHLORIDE 20 MEQ/15 ML UDC PO SCH (21:00)
[2022-08-02] MEDS: TAMSULOSIN HCL 0.4 MG CAP PO SCH (21:59)
[2022-08-02] MEDS: LATANOPROST 0.005% OP SOLN 2.5 ML BTL OP SCH (22:01)
[2022-08-02] MEDS: traZODone HCL 50 MG TAB PO SCH (22:06)
[2022-08-03] MEDS: ACETAMINOPHEN 500 MG TAB PO SCH ×3 (06:08→22:18)
[2022-08-03 06:55] LABS: Basophils # (auto) 0.03 K/uL (0-0.2); Basophils % (auto) 0.4 %; Eosinophils # (auto) 0.25 K/uL (0-0.50); Eosinophils % (auto) 2.9 %; Hematocrit (blood only) 30.2 % (40.1-51.0); Hemoglobin 8.9 g/dl (14.0-18.0); Immature Granulocytes # (auto) 0.04 K/uL (0.00-0.02); Immature Granulocytes % (auto) 0.5 %; Lymphocytes # (auto) 1.07 K/uL (1.2-3.4); Lymphocytes % (auto) 12.6 %; Mean Corpuscular Hemoglobin 24.5 pg (25.0-34.0); Mean Corpuscular Hgb Conc 29.5 g/dL (32.0-36.0); Mean Platelet Volume 9.2 fL (9.4-12.4); Monocytes # (auto) 0.71 K/uL (0.24-0.82); Monocytes % (auto) 8.4 %; Neutrophils # (auto) 6.39 K/uL (1.4-6.5); Neutrophils % (auto) 75.2 %; Platelet Count 457 K/uL (130-400); RDW Coefficient of Variation 19.8 % (11.5-14.5); RDW Standard Deviation 59.5 fL (36.4-46.3); Red Blood Count 3.64 M/uL (4.63-6.08); White Blood Count 8.49 K/ul (4.8-10.8)
--- NOTE | 2022-08-03 07:01 | Orthopedic Progress Note ---
Date of Service August 03, 2022 Assessment & Plan (1) Status post reverse total replacement of right shoulder: He is doing fairly well with his right shoulder. Pulmonology has signed off and the hospitalist is continuing to follow closely. He is currently on 3 L of oxygen by nasal cannula. He is scheduled to have an angiogram of his lower extremities on Tuesday by the vascular team. He is orthopedically stable for discharge when medically ready. Eran Amin was seen and examined at bedside this morning. There has been no change in his status since yesterday. He is on 3 L of oxygen by nasal cannula. He is not having much pain in the right shoulder.. Review of Systems All systems reviewed & are unremarkable except as noted in HPI & below. Physical Exam Physical examination the right shoulder, the incision is clean and dry. There is no drainage. He is neurovascular intact.. Results & Data Results & Data Laboratory Results . Diagnostic Findings . PG Care Time/CCT Total # of Minutes Spent Total Time Spent with Patient: Total time spent is greater than 50% in coordination of care (as documented) at patient's floor/unit and/or counseling patient: Coding Level of Care Code 81470 Post Operative Follow-Up Diagnoses Status post reverse total replacement of right shoulder Z96.611
[2022-08-03 07:16] LABS: BUN Creatinine Ratio 39.7 (10-20); Calcium 8.8 mg/dl (8.5-10.1); Creatinine Clr Calc Pharmacy 83.1 ml/min; Est GFR (African American) 105.3 ml/min; Est GFR (Non-African American) 90.8 ml/min; Magnesium 2.1 mg/dl (1.7-2.4); Potassium 4.1 mmol/L (3.5-5.1)
[2022-08-03] MEDS: HYDROmorphone INJ 0.5 MG/0.5 ML SYR IV PRN (07:31)
--- NOTE | 2022-08-03 08:14 | Hospitalist Progress Note ---
Date of Service August 03, 2022 Assessment & Plan (1) Acute respiratory failure with hypoxia: Plan: This is a 71-year-old male with a history of HFpEF, bilateral pleural effusions, atrial fibrillation, coronary artery disease, peripheral artery disease, hyperlipidemia, anemia, pulmonary hypertension who presented to [facility] for R shoulder replacement on 07/26 and subsequently developed an increasing oxygen requirement, which is primarily suspected to be secondary to pulmonary edema Primary suspicion based on clinical appearance is acute HFpEF / pulmonary edema / worsening of known pleural effusions. VTE a possibility but will await labs; on ASA for post-surgical PPX. PNA is also a possibility Prior ECHO in October w/ normal EF, mild concentric LVH, EF 65-70%. Patient had thoracentesis prior to surgery for 500cc with pulmonology -- transudative fluid 06/30 Consulted POD#8 s/p reverse shoulder w/ increased O2 requirement 2-4L with NO O2 at baseline reported and placed on BiPAP to maintain adequate oxygenation VBG unremarkable CXR w/ evidence CHF/pulm edema/layering effusions w/ dependent consolidation, increased from 07/07 imaging Consulted pulm s/p thoracentesis for 1650mL cloudy serous fluid 07/[address] Alvarez Tx to PCU for afib/flutter -- converted back, maintained. Prior pAfib seen by Dr Sheffield but opted not for AC at that time. Cards consulted inpatient. Should ideally be on Eliquis BID vs Xarelto when bleeding ensured stable/dc. Continues on tele NSR. TSH wnl 1u PRBC for hgb 7.2 , did get 1 dose of Venofer, remains on PO supplementation Repeat ECHO LV systolic function normal. Grade I diastolic dysfunction. Mild cLVH. RVSP elevated 40-50mmHG. Mild aortic root dilatation Continued lasix, 40mg IV/20mg IV daily, had placed evening lasix 20mg on hold while giving Diamox x2 last 2 evenings (07/31-08/01) for elevated bicarb on AM labs, since resolved Discussed with pulm ? pleurx for continued effusion, compressive atelectasis vs continued diuretics --> no Pleurx given risk for infection --> deferred to c ardiology for diuresis Discussed with Dr Mehta evening 08/02 -> given Cr stable w/ continued diuretics and minimal improvement on CXR w/ 40 IV QAM, 20mg IV QPM, increased to 40mg IV BID evening 08/02 --Prior admits w/ report possible noncompliance w/ lasix at home Additional K supplementation w/ lasix ordered, cautious w/ bactrim use Of note, was eating cheeseburger and yakut fries afternoon 08/01. Already was on low sodium diet, added further fluid restriction and AHA to diet. Educated to avoid excessive salt/fluid retention Of note, given anemia requiring transfusion GI consulted given prior cirrhosis/esophageal varices on EGD earlier this year w/ Dr Rush/upper GI discomfort --> agreed to continue PPI BID, carafate. No inpatient scope. Plavix resumed and hgb stable on repeat 08/03 Remains on 1-3L NC to maintain saturations Start spironolactone 12.5mg BID w/ lasix, cathryn given hx cirrhosis, CXR w/o significant improvement in pulmonary edema Will place PO KCl on hold, prior lows, also on bactrim, to prevent kidney injury Cr remains stable w/ increased Lasix 40mg IV BID , continued for now may be able to back off pending response to spironolactone/titrate up If improvement w/ increased diuretics on AM cxr/able to titrate off O2 and consider 2 step w/ ambulation and kidney function stable, could potentially discharge on increased dose of diuretics CM following, wanted update on timing for discharge. Discussed fluid management/O2 requirement w/ cards/pulm, only thing keeping him here currently. (2) Bilateral pleural effusion: Plan: Bilateral pleural effusions, known. [facility] pul[facility] s/p thoracentesis with 500cc fluid removal on 06/30/22 on the RIGHT side Was hospitalized in January 2021 for acute CHF for the same -- had thoracentesis at this time too CXR w/ layering effusions, s/p thoracentesis with Dr Alvarez 07/28 Diuretics as outlined above, CXR worsened on AM check, on 3L NC Pulm signed off 08/02, def to cards for diuretics Discussed w/ Dr Mehta evening 08/02 and Abbey Patton from CHF clinic this morning given planned increase lasix 40mg IV BID and decision to start spironolactone as above. Monitor on repeat (3) CAD (coronary artery disease): Plan: CAD/PAD/HLD, paroxysmal afib Catheterization during January 2021 admission with acute CHF -- demonstrated triple-vessel CAD that is currently being managed medically. Follows with Dr Sheffield for hx paroxysmal afib (patient prefer conservative approach no further monitoring/anticoagulation), 2nd degree AV block (had mobitz 1 second degree-AV identified while on BB, but patient back on BB due to CAD), patient declined implantable monitoring in past. Continue ASA 81mg, statin, metoprolol tartrate 25mg BID (?switching to succinate at d/c) Cardiology consulted as above given patient flip afib/flutter and transferred to PCU. Consideration for anticoagulation if patient agreeable with Xarelto vs Eliquis as above. Would have CM tom check. Would need ASA discontinued in that event and continue anticoagulation/Plavix Keep K~4, Mag ~2 (additional K supplementation with Lasix) Continued discussions will need to be had regarding anticoagulation with Xarelto vs Eliquis given esophageal varices on EGD earlier this year, risk vs benefit (4) Pulmonary hypertension: Plan: Pulmonary HTN History noted. Not appreciated on last TTE in 10/2021 [place] [facility] [place], consulted while inpatient ?sarcoid -- NO elevation in calcium. discussed w/ pulm, doubtful (5) Anemia: Plan: Chronic iron deficiency anemia with baseline around 9-10 Hgb 8.8 on AM labs, however volume overloaded as above, will monitor. No bleeding reported Iron panel w/ low iron/trans % sat -- Venofer x 1, 1u PRBC 12/1 Hgb stable on repeat w/ dose of Lasix for volume overload as above, suspect continued lows from volume overload Remains on daily PO supplementation Monitor for any bleeding -- none reported (6) Status post reverse total replacement of right shoulder: Plan: POD # 14 p Right Reverse Total Shoulder Arthroplasty(Right) with open biceps tenodesis as a distinct and separate procedure (modifier 59)- Yoel Lind, on 07/20 EBL 150cc Pain control/bowel regimen/DVT prophylaxis per primary service Was anticipating discharge 07/27, however see above, developed acute respiratory failure (7) Peripheral arterial disease: Plan: [facility] [place] [facility]p LLE angioplasty with stenting in October this year, does have narrowing/marked stenosis distal superficial femoral artery on duplex in March 19 Plavix held for shoulder surgery, resumed as above but now again on hold for anemia but given anemia/need for PRBC placed back on hold, since resumed Vascular consulted -- rec f/u with previous vascular surgeon for amputation as toes w/ demarcation NO PLANNED INTERVENTION (8) Esophageal varices: Plan: hx cirrhosis, ?2nd RILEY, no reported etoh use/abuse however did have B12 deficiency noted esophageal varices on EGD earlier this year with Dr rush, consulted given anemia and GI discomfort. Increased PPI to BID in meantime GI recs continuing PPI BID, no changes to current regimen Plan continued inpatient stay limit opiates -- messaged DR Lind patient still using Dilaudid IV continue lasix 40mg IV BID, added spironolactone 12.5mg PO BID Hold K supplementation Titrate O2 as able to maintain sats Monitor CXR in AM/kidney function. If improved/consider increased diuretics at d/c to rehab and have continued labs/follow up Messaged DR lind from primary team regarding plan w/ diuretics Admission and Anticipated Discharge Date Admission Date: July 26, 2022 Supervising Physician Co-Signing Physician Notes Attending Attestation - Chart reviewed, care plan d/w PA Mariaa Baxter. I agree w/ the vargas components of her documentation. Doron Wilson MD Subjective eval this morning, states feeling ok breathing stable at rest but endorses when he's up/moving around he does get short of breath denies any sputum production urine still clear, no abdominal pain/fevers alert/oriented using decreased IV dilaudid for shoulder pain as well as neuropathic pain for feet . Avoided going up on gabapentin to prevent confusion per prior reports discussed adding spironolactone to help with diuresis and hopefully we actually would be able to limit the oral potassium as able to titrate that up. Encouraged low salt diet/fluid restriction. Plans for angiography with Dr Ochoa tomorrow per patient, however noted this was cancelled on OR schedule -- states his PA told him would be done on Tuesday. Will discuss as Dr Lind stated the same thing. Was under impression that he was to f/u prior vascular surgeon. Questions/concerns addressed at this time. Review of Systems Review of Systems: All systems reviewed & are unremarkable except as noted in HPI & below Physical Exam Physical Exam: General/psych: chronically ill appearing male sitting up in bed, NAD, Alert to person/place (knows in hospital, for what), year 2021, neck without tracheal deviation, mmm Resp: decreased air entry bilaterally, diminished in the bases without wheezing, +bibasilar crackles, on 3L NC CV: RRR (NSR in 60-80s on monitor), no m/r/g or pitting edema, calves without tenderness GI: +BS, soft, NONTENDER without sierra MSK/neuro/skin: sling to RUE, fingers mobile, pulses palpable, NVI, [place] in place, no hematoma noted gangrenous appearance b/l feet (unchanged), demarcated, cool to the touch but sensation intact, no edema, decreased pulses but palpable Results & Data Results & Data ([facility]) Vital Signs (Past 12 Hours) Vital Signs Temp Pulse Pulse Pulse Resp BP Pulse Ox 08/03/22 06:59 36.4 C L 71 16 120/72 95 08/03/22 03:25 36.4 C L 65 20 108/65 96 08/02/22 22:08 78 08/02/22 22:47 36.6 C 79 20 129/85 95 08/02/22 22:09 76 109/68 O2 Del Method O2 Flow Rate 08/03/22 06:59 Nasal Cannula 3 08/03/22 03:25 Nasal Cannula 3 08/02/22 22:08 08/02/22 22:47 Nasal Cannula 3 08/02/22 22:09 Laboratory Results 08/03/22 08/03/22 Range/Units 05:58 05:58 WBC 8.49 (4.8-10.8) K/ul RBC 3.64 L (4.63-6.08) M/uL Hgb 8.9 L (14.0-18.0) g/dl Hct 30.2 L (40.1-51.0) % MCV 83.0 (80.0-100.0) fL MCH 24.5 L (25.0-34.0) pg MCHC 29.5 L (32.0-36.0) g/dL RDW Std Deviation 59.5 H (36.4-46.3) fL RDW Coeff of Timbo 19.8 H (11.5-14.5) % Plt Count 457 H (130-400) K/uL MPV 9.2 L (9.4-12.4) fL Immature Gran % (Auto) 0.5 % Neut % (Auto) 75.2 % Lymph % (Auto) 12.6 % Prentiss % (Auto) 8.4 % Eos % (Auto) 2.9 % Baso % (Auto) 0.4 % Neut # (Auto) 6.39 (1.4-6.5) K/uL Lymph # (Auto) 1.07 L (1.2-3.4) K/uL Prentiss # (Auto) 0.71 (0.24-0.82) K/uL Eos # (Auto) 0.25 (0-0.50) K/uL Baso # (Auto) 0.03 (0-0.2) K/uL Immature Gran # (Auto) 0.04 H (0.00-0.02) K/uL Sodium 135 L (136-145) mmol/L Potassium 4.1 (3.5-5.1) mmol/L Chloride 100 (98-107) mmol/L Carbon Dioxide 31 (21-32) mmol/L Anion Gap 4 (3-11) BUN 31 H (6-23) mg/dl Creatinine 0.78 (0.6-1.4) mg/dl Est Cr Clr Drug Dosing 83.1 ml/min Est GFR ( Amer) 105.3 ml/min Est GFR (Non-Af Amer) 90.8 ml/min BUN/Creatinine Ratio 39.7 H (10-20) Glucose 89 (70-99(Fasting)) mg/dl Calcium 8.8 (8.5-10.1) mg/dl Magnesium 2.1 (1.7-2.4) mg/dl PG Care Time/CCT Total # of Minutes Spent Total Time Spent with Patient: Total time spent is greater than 50% in coordination of care (as documented) at patient's floor/unit and/or counseling patient: Coding Level of Care Code 99074 Subseq Hosp Care Lvl 3 Diagnoses Acute respiratory failure with hypoxia J96.01 Bilateral pleural effusion J90 CAD (coronary artery disease) I25.10 Pulmonary hypertension I27.20 Anemia D64.9 Anemia type: unspecified type Status post reverse total replacement of right shoulder Z96.611 Peripheral arterial disease I73.9 Esophageal varices I85.00 (1) Anemia Anemia type: unspecified type Qualified Code(s): D64.9 - Anemia, unspecified
[2022-08-03] MEDS ORDERED: SPIRONOLACTONE 12.5 MG TAB PO SCH (09:00)
[2022-08-03] MEDS: MULTIVITAMIN TAB PO SCH (10:04)
[2022-08-03] MEDS: FERROUS SULFATE 325 MG TAB PO SCH ×2 (10:04→17:07)
[2022-08-03] MEDS: ASPIRIN 81 MG ECTAB PO SCH (10:04)
[2022-08-03] MEDS: buPROPion HCl 100 MG TABLET PO SCH ×2 (10:04→22:15)
[2022-08-03] MEDS: PANTOprazole 40 MG TAB PO SCH ×2 (10:04→22:15)
[2022-08-03] MEDS: METOPROLOL TARTRATE 25 MG TAB PO SCH ×2 (10:04→22:15)
[2022-08-03] MEDS: GABAPENTIN 400 MG CAP PO SCH ×3 (10:05→22:15)
[2022-08-03] MEDS: SULFAMETHOXAZOLE/TRIMETHOPRIM DS 800/160MG TAB PO SCH ×2 (10:05→22:16)
[2022-08-03] MEDS: FUROSEMIDE 40 MG/4 ML VIAL IV SCH ×2 (10:05→22:14)
[2022-08-03] MEDS: SENNA 8.6 MG TAB PO SCH ×2 (10:05→22:16)
[2022-08-03] MEDS: FLUTICASONE/VILANTEROL 100/25MCG 14 PUFFS/INHALER INH SCH (10:06)
[2022-08-03] MEDS: ATORVASTATIN 40 MG TAB PO SCH (10:06)
[2022-08-03] MEDS: CLOPIDOGREL BISULFATE 75 MG TAB PO SCH (10:07)
[2022-08-03] MEDS: oxyCODONE HCL IR 5 MG TAB (IMMEDIATE RELEASE) PO PRN (10:07)
[2022-08-03] MEDS: prednisoLONE acetate 1% OP SUSP 5 ML BTL OP SCH ×3 (10:08→22:07)
[2022-08-03] MEDS: DOCUSATE SODIUM 100 MG CAP PO SCH ×2 (10:09→22:14)
[2022-08-03] MEDS: DORZOLAMIDE/TIMOLOL 22.3/6.8MG/ML 10 ML BTL OP SCH ×3 (10:09→22:09)
[2022-08-03] MEDS: BRIMONIDINE TARTRATE 0.2% 5ML OP SCH ×2 (10:09→22:08)
--- NOTE | 2022-08-03 14:10 | XRay Report ---
XR chest 2V PA/lateral CLINICAL HISTORY: f/u effusions COMPARISON STUDY: Chest radiograph August 02, 2022. FINDINGS: Bilateral shoulder arthroplasties are incidentally noted. There is no pneumothorax. Moderat e bilateral pleural effusions are noted, slightly increased from earlier exams. Associated bibasilar opacities are noted with right lung volume loss. This is unchanged. Interstitial pulmonary edema pers ists. Cardiac mediastinal silhouette is stable. Old left-sided rib fractures are incidentally noted. IMPRESSION: 1. Moderate bilateral pleural effusions, slightly increased since prior. Associated bibasilar opaciti es. 2. Persistent pulmonary edema. ACT 112: Negative or not required by law. Electronically signed by: Kalyan Martinez M.D. 08/03/2022 2:08 PM
[2022-08-03] MEDS ORDERED: HYDROmorphone INJ 0.5 MG/0.5 ML SYR IV STA (16:49)
[2022-08-03] MEDS: SPIRONOLACTONE 12.5 MG TAB PO SCH (17:07)
[2022-08-03] MEDS ORDERED: oxyCODONE HCL IR 5 MG TAB (IMMEDIATE RELEASE) PO STA (20:24)
[2022-08-03] MEDS: LATANOPROST 0.005% OP SOLN 2.5 ML BTL OP SCH (22:09)
[2022-08-03] MEDS: traZODone HCL 50 MG TAB PO SCH (22:14)
[2022-08-03] MEDS: TAMSULOSIN HCL 0.4 MG CAP PO SCH (22:17)
[2022-08-04] MEDS: oxyCODONE HCL IR 5 MG TAB (IMMEDIATE RELEASE) PO PRN ×6 (00:25→22:32)
[2022-08-04] MEDS: ACETAMINOPHEN 500 MG TAB PO SCH ×3 (06:26→22:32)
--- NOTE | 2022-08-04 06:54 | Orthopedic Progress Note ---
Date of Service August 04, 2022 Assessment & Plan (1) Status post reverse total replacement of right shoulder: Overall is doing well with his right shoulder. We will remove the babatunde today. The angiogram scheduled for his lower extremities by Dr. Ochoa has been canceled. It appears he would like him to follow-up with his vascular specialist with the ID in [place]. He is still dealing with some pulmonary edema. He is being treated by the hospitalist at this time. He is orthopedically stable for discharge when medically ready. Full orthopedic discharge instructions have been placed in the discharge summary. Eran Amin was seen and examined at bedside this morning. Overall he seems to be doing okay. He is on 3 L by nasal cannula. He is not having too much pain in the right shoulder. He has no new complaints.. Review of Systems All systems reviewed & are unremarkable except as noted in HPI & below. Physical Exam On physical examination of the right shoulder, the incision is clean and dry. He is neurovascular intact.. Results & Data Results & Data Laboratory Results . Diagnostic Findings . PG Care Time/CCT Total # of Minutes Spent Total Time Spent with Patient: Total time spent is greater than 50% in coordination of care (as documented) at patient's floor/unit and/or counseling patient: Coding Level of Care Code 62875 Post Operative Follow-Up Diagnoses Status post reverse total replacement of right shoulder Z96.611
[2022-08-04 06:58] LABS: Albumin Level 2.6 gm/dl (3.4-5.0); BUN Creatinine Ratio 43.5 (10-20); Bilirubin,Total 0.3 mg/dl (0.2-1.0); Calcium 8.8 mg/dl (8.5-10.1); Creatinine Clr Calc Pharmacy 94.4 ml/min; Est GFR (African American) 110.7 ml/min; Est GFR (Non-African American) 95.5 ml/min; Magnesium 1.9 mg/dl (1.7-2.4); Potassium 3.7 mmol/L (3.5-5.1); Total Protein 6.9 gm/dl (6.0-8.3)
[2022-08-04 06:59] LABS: Hematocrit (blood only) 28.5 % (40.1-51.0); Hemoglobin 8.8 g/dl (14.0-18.0); Mean Corpuscular Hgb Conc 30.9 g/dL (32.0-36.0); Mean Platelet Volume 8.9 fL (9.4-12.4); Platelet Count 514 K/uL (130-400); RDW Coefficient of Variation 19.6 % (11.5-14.5); RDW Standard Deviation 57.7 fL (36.4-46.3); Red Blood Count 3.52 M/uL (4.63-6.08); White Blood Count 8.11 K/ul (4.8-10.8)
[2022-08-04 07:38] LABS: Basophils # (auto) 0.04 K/uL (0-0.2); Basophils % (auto) 0.5 %; Eosinophils # (auto) 0.29 K/uL (0-0.50); Eosinophils % (auto) 3.6 %; Immature Granulocytes % (auto) 1.2 %; Lymphocytes # (auto) 1.13 K/uL (1.2-3.4); Lymphocytes % (auto) 13.9 %; Monocytes # (auto) 0.67 K/uL (0.24-0.82); Monocytes % (auto) 8.3 %; Neutrophils # (auto) 5.88 K/uL (1.4-6.5); Neutrophils % (auto) 72.5 %; Polychromasia 1+
--- NOTE | 2022-08-04 08:23 | Hospitalist Progress Note ---
Date of Service August 04, 2022 Assessment & Plan (1) Acute respiratory failure with hypoxia: Plan: This is a 71-year-old male with a history of HFpEF, bilateral pleural effusions, atrial fibrillation, coronary artery disease, peripheral artery disease, hyperlipidemia, anemia, pulmonary hypertension who presented to [facility] for R shoulder replacement on 07/26/22 and subsequently developed an increasing oxygen requirement, which is primarily suspected to be secondary to pulmonary edema Primary suspicion based on clinical appearance is acute HFpEF / pulmonary edema / worsening of known pleural effusions. Prior ECHO in October w/ normal EF, mild concentric LVH, EF 65-70%. Patient had thoracentesis prior to surgery for 500cc with pulmonology -- transudative fluid 06/30 Hospitalist Consulted POD#8 s/p reverse shoulder w/ increased O2 requirement 2- 4L with NO O2 at baseline reported and placed on BiPAP to maintain adequate oxygenation VBG unremarkable CXR w/ evidence CHF/pulm edema/layering effusions w/ dependent consolidation, increased from 07/07 imaging Consulted pulm s/p thoracentesis for 1650mL cloudy serous fluid 07/[address] Alvarez Tx to PCU for afib/flutter -- converted back, maintained. Prior pAfib seen by Dr Sheffield but opted not for AC at that time. Cards consulted inpatient. Should ideally be on Eliquis BID vs Xarelto when bleeding ensured stable/dc. Continues on tele NSR. TSH wnl 1u PRBC for hgb 7.2 , did get 1 dose of Venofer, remains on PO supplementation - Hgb stable and no evidence of any active GI bleeding Repeat ECHO LV systolic function normal. Grade I diastolic dysfunction. Mild cLVH. RVSP elevated 40-50mmHG. Mild aortic root dilatation Continued lasix, 40mg IV/20mg IV daily, had placed evening lasix 20mg on hold while giving Diamox x2 last 2 evenings (07/31-08/01) for elevated bicarb on AM labs, since resolved Discussed with pulm ? pleurx for continued effusion, compressive atelectasis vs continued diuretics --> no Pleurx given risk for infection --> deferred to cardiology for diuresis Discussed with Dr Mehta evening 08/02 -> given Cr stable w/ continued diuretics and minimal improvement on CXR w/ 40 IV QAM, 20mg IV QPM, increased to 40mg IV BID evening 08/02 --Prior admits w/ report possible noncompliance w/ lasix at home Additional K supplementation w/ lasix ordered, cautious w/ bactrim use Of note, was eating cheeseburger and belizean fries afternoon 08/01. Already was on low sodium diet, added further fluid restriction and AHA to diet. Educated to avoid excessive salt/fluid retention Of note, given anemia requiring transfusion GI consulted given prior cirrhosis/esophageal varices on EGD earlier this year w/ Dr Rush/upper GI discomfort --> agreed to continue PPI BID, carafate. No inpatient scope. Plavix resumed and hgb stable on repeat 08/04 Remains on 3L NC, nursing trying to wean Continue spironolactone 12.5mg BID w/ lasix 40mg BID, cathryn given hx cirrhosis, CXR w/o significant improvement in pulmonary edema on 08/03/22 PO KCl was placed on hold, prior lows, also on bactrim, to prevent kidney injury Cr remains stable (0.69) w/ increased Lasix 40mg IV BID , continued for now may be able to back off pending response to spironolactone/titrate up Will get a repeat CXR in AM and if improvement w/ increased diuretics and patient is able to titrate off O2. (Patient states he is able to walk, so unable to get a 2 step w/ ambulation.) Could potentially discharge soon to outpatient rehab facility on increased dose of diuretics. CM following, wanted update on timing for discharge. Discussed fluid management/O2 requirement w/ cards/pulm, only thing keeping him here currently. (2) Bilateral pleural effusion: Plan: Bilateral pleural effusions, known. follows w/ [facility] pulmonology s/p thoracentesis with 500cc fluid removal on 06/30/22 on the RIGHT side Was hospitalized in January 2021 for acute CHF for the same -- had thoracentesis at this time too CXR w/ layering effusions, s/p thoracentesis with Dr Alvarez 07/28 Diuretics as outlined above, CXR worsened on 08/03 will repeat 08/05/22, on 3L NC Pulm signed off 08/02, stating patient has evidence of continued pulmonary edema and recommended to continue diuresis. Pulm also recommended to possibly consider a palliative care consult given the chronic and severe issues that patient suffers from. Discussed w/ Dr Mehta evening 08/02 and Abbey Patton from CHF clinic 08/03 given planned increase lasix 40mg IV BID and decision to start spironolactone as above. (3) CAD (coronary artery disease): Plan: CAD/PAD/HLD, paroxysmal afib Catheterization during January 2021 admission with acute CHF -- demonstrated triple-vessel CAD that is currently being managed medically. Follows with Dr Sheffield for hx paroxysmal afib (patient prefer conservative approach no further monitoring/anticoagulation), 2nd degree AV block (had mobitz 1 second degree-AV identified while on BB, but patient back on BB due to CAD), patient declined implantable monitoring in past. Continue ASA 81mg, statin, metoprolol tartrate 25mg BID (?switching to succinate at d/c) Cardiology consulted as above given patient flip afib/flutter and transferred to PCU. Consideration for anticoagulation if patient agreeable with Xarelto vs Eliquis as above. Would have CM tom check. Would need ASA discontinued in that event and continue anticoagulation/Plavix Keep K~4, Mag ~2 (additional K supplementation with Lasix) Continued discussions will need to be had regarding anticoagulation with Xarelto vs Eliquis given esophageal varices on EGD earlier this year, risk vs benefit (4) Pulmonary hypertension: Plan: Pulmonary HTN History noted. Not appreciated on last TTE in 10/2021 Follows with [facility] [place] pulmonology, consulted while inpatient ?sarcoid -- NO elevation in calcium. discussed w/ pulm, doubtful (5) Anemia: Plan: Chronic iron deficiency anemia with baseline around 9-10 Hgb 8.8 on AM labs, however volume overloaded as above, will monitor. No bleeding reported Iron panel w/ low iron/trans % sat -- Venofer x 1, 1u PRBC 07/29 No evidence of any active GI bleeding Hgb stable on repeat w/ dose of Lasix for volume overload as above, suspect continued lows from volume overload Remains on daily PO supplementation Monitor for any bleeding -- none reported (6) Status post reverse total replacement of right shoulder: Plan: POD # 14 p Right Reverse Total Shoulder Arthroplasty(Right) with open biceps tenodesis as a distinct and separate procedure (modifier 59)- Yoel Ding, on 07/20 EBL 150cc Pain control/bowel regimen/DVT prophylaxis per primary service Was anticipating discharge 07/27, however see above, developed acute respiratory failure (7) Peripheral arterial disease: Plan: [facility]p LLE angioplasty with stenting in October this year, does have narrowing/marked stenosis distal superficial femoral artery on duplex in March 19 Plavix held for shoulder surgery, resumed as above but now again on hold for anemia but given anemia/need for PRBC placed back on hold, since resumed Vascular consulted -- rec f/u with previous vascular surgeon for amputation as toes w/ demarcation NO PLANNED INTERVENTION (8) Esophageal varices: Plan: hx cirrhosis, ?2nd RILEY, no reported etoh use/abuse however did have B12 deficiency noted esophageal varices on EGD earlier this year with Dr rush, consulted given anemia and GI discomfort. Increased PPI to BID in meantime GI recs continuing PPI BID, no changes to current regimen Plan continued inpatient stay limit opiates -- messaged Dr Ding patient still using Dilaudid IV continue lasix 40mg IV BID, added spironolactone 12.5mg PO BID Hold K supplementation Titrate O2 as able to maintain sats Monitor CXR in AM/kidney function. If improved/consider increased diuretics at d/c to rehab and have continued labs/follow up Admission and Anticipated Discharge Date Admission Date: July 26, 2022 Subjective Patient seen and evaluated this afternoon. His son was visiting and was at bedside. Patient denies any complaints to me today. He denies any chest pain or SOB. He stated that when they try and stop his oxygen he feels SOB. Currently he is on 3 Liters. He denies any cough, congestion or dyspnea. Ortho took the babatunde out of his left shoulder today. Review of Systems Constitutional: + fatigue; no fever and no chills Respiratory: no cough, no chest congestion, no hemoptysis and no pain on inspiration only complains of SOB when he does not have Oxygen via nc Cardiovascular: no chest pain and no dyspnea at rest Gastrointestinal: no abdominal pain, no nausea and no vomiting Integumentary: + change in skin color; no rash and no new lesions bilareral 1st toes with vascular gangrenous changes and left 2nd toe as well - unchanged per patient Physical Exam Constitutional: WD/WN, vitals as above Neck: trachea midline, no thyromegaly Respiratory: normal respiratory effort and able to speak in complete sentences; no labored breathing and no cough Cardiovascular: RRR, no murmur, no edema Gastrointestinal (Abdomen): normal bowel sounds, soft, nontender, no hepatosplenomegaly Musculoskeletal: Right arm in sling, Radial pulses palpable and normal bilaterally Gangrenous 1st toes bilaterally and 2nd toe on left Calves nontender Skin: gangrenous toes as above Results & Data Results & Data ([facility]) Vital Signs (Past 12 Hours) Vital Signs Temp Pulse Pulse Pulse Resp BP Pulse Ox 08/04/22 07:13 36.5 C 78 18 120/73 95 08/03/22 22:05 78 08/04/22 03:39 36.4 C L 88 18 115/66 91 08/03/22 23:41 36.8 C 77 18 121/73 95 O2 Del Method O2 Flow Rate 08/04/22 07:13 Nasal Cannula 3 08/03/22 22:05 08/04/22 03:39 Nasal Cannula 3 08/03/22 23:41 Nasal Cannula 3 Laboratory Results Abnormal lab results 08/04/22 08/04/22 Range/Units 05:28 05:28 RBC 3.52 L (4.63-6.08) M/uL Hgb 8.8 L (14.0-18.0) g/dl Hct 28.5 L (40.1-51.0) % MCHC 30.9 L (32.0-36.0) g/dL RDW Std Deviation 57.7 H (36.4-46.3) fL RDW Coeff of Timbo 19.6 H (11.5-14.5) % Plt Count 514 H (130-400) K/uL MPV 8.9 L (9.4-12.4) fL Lymph # (Auto) 1.13 L (1.2-3.4) K/uL Immature Gran # (Auto) 0.10 H (0.00-0.02) K/uL Sodium 134 L (136-145) mmol/L BUN 30 H (6-23) mg/dl BUN/Creatinine Ratio 43.5 H (10-20) Alkaline Phosphatase 164 H (34-104) U/L Albumin 2.6 L (3.4-5.0) gm/dl Diagnostic Findings Chest X-Ray 08/03/22 06:00 XR chest 2V PA/lateral CLINICAL HISTORY: f/u effusions COMPARISON STUDY: Chest radiograph August 02, 2022. FINDINGS: Bilateral shoulder arthroplasties are incidentally noted. There is no pneumothorax. Moderate bilateral pleural effusions are noted, slightly increased from earlier exams. Associated bibasilar opacities are noted with right lung volume loss. This is unchanged. Interstitial pulmonary edema persists. Cardiac mediastinal silhouette is stable. Old left-sided rib fractures are incidentally noted. IMPRESSION: 1. Moderate bilateral pleural effusions, slightly increased since prior. Associated bibasilar opacities. 2. Persistent pulmonary edema. ACT 112: Negative or not required by law. Electronically signed by: Kalyan Martinez M.D. 08/03/2022 2:08 PM PG Care Time/CCT Total # of Minutes Spent Total Time Spent with Patient: Total time spent is greater than 50% in coordination of care (as documented) at patient's floor/unit and/or counseling patient: Coding Level of Care Code 39042 Subseq Hosp Care Lvl 3 Diagnoses Acute respiratory failure with hypoxia J96.01 Bilateral pleural effusion J90 CAD (coronary artery disease) I25.10 Pulmonary hypertension I27.20 Anemia D64.9 Anemia type: unspecified type Status post reverse total replacement of right shoulder Z96.611 Peripheral arterial disease I73.9 Esophageal varices I85.00 Time Spent (min) 25 (1) Anemia Anemia type: unspecified type Qualified Code(s): D64.9 - Anemia, unspecified
[2022-08-04] MEDS: FERROUS SULFATE 325 MG TAB PO SCH ×2 (08:49→17:48)
[2022-08-04] MEDS: SENNA 8.6 MG TAB PO SCH ×2 (08:49→20:49)
[2022-08-04] MEDS: SPIRONOLACTONE 12.5 MG TAB PO SCH ×2 (08:49→17:48)
[2022-08-04] MEDS: MULTIVITAMIN TAB PO SCH (08:50)
[2022-08-04] MEDS: CLOPIDOGREL BISULFATE 75 MG TAB PO SCH (08:50)
[2022-08-04] MEDS: ATORVASTATIN 40 MG TAB PO SCH (08:50)
[2022-08-04] MEDS: ASPIRIN 81 MG ECTAB PO SCH (08:50)
[2022-08-04] MEDS: FUROSEMIDE 40 MG/4 ML VIAL IV SCH ×2 (08:50→20:48)
[2022-08-04] MEDS: METOPROLOL TARTRATE 25 MG TAB PO SCH ×2 (08:51→20:49)
[2022-08-04] MEDS: buPROPion HCl 100 MG TABLET PO SCH ×2 (08:51→20:48)
[2022-08-04] MEDS: SULFAMETHOXAZOLE/TRIMETHOPRIM DS 800/160MG TAB PO SCH ×2 (08:51→20:49)
[2022-08-04] MEDS: PANTOprazole 40 MG TAB PO SCH ×2 (08:51→20:49)
[2022-08-04] MEDS: GABAPENTIN 400 MG CAP PO SCH ×3 (08:52→20:48)
[2022-08-04] MEDS: FLUTICASONE/VILANTEROL 100/25MCG 14 PUFFS/INHALER INH SCH (08:54)
[2022-08-04] MEDS: prednisoLONE acetate 1% OP SUSP 5 ML BTL OP SCH ×3 (08:54→20:46)
[2022-08-04] MEDS: BRIMONIDINE TARTRATE 0.2% 5ML OP SCH ×2 (08:54→20:45)
[2022-08-04] MEDS: DORZOLAMIDE/TIMOLOL 22.3/6.8MG/ML 10 ML BTL OP SCH ×3 (08:54→20:46)
[2022-08-04] MEDS: DOCUSATE SODIUM 100 MG CAP PO SCH ×2 (12:11→20:52)
[2022-08-04] MEDS: LATANOPROST 0.005% OP SOLN 2.5 ML BTL OP SCH (20:46)
[2022-08-04] MEDS: TAMSULOSIN HCL 0.4 MG CAP PO SCH (20:50)
[2022-08-04] MEDS: traZODone HCL 50 MG TAB PO SCH (20:52)
[2022-08-05] MEDS: oxyCODONE HCL IR 5 MG TAB (IMMEDIATE RELEASE) PO PRN ×4 (04:30→19:51)
[2022-08-05] MEDS: ACETAMINOPHEN 500 MG TAB PO SCH ×3 (05:30→22:14)
[2022-08-05] MEDS: METOPROLOL TARTRATE 25 MG TAB PO SCH ×2 (08:08→20:02)
[2022-08-05] MEDS: GABAPENTIN 400 MG CAP PO SCH ×3 (08:08→20:00)
[2022-08-05 08:11] LABS: Hematocrit (blood only) 29.8 % (40.1-51.0); Hemoglobin 9.1 g/dl (14.0-18.0); Mean Corpuscular Hemoglobin 24.8 pg (25.0-34.0); Mean Corpuscular Hgb Conc 30.5 g/dL (32.0-36.0); Mean Corpuscular Volume 81.2 fL (80.0-100.0); Mean Platelet Volume 9.1 fL (9.4-12.4); Platelet Count 514 K/uL (130-400); RDW Coefficient of Variation 19.7 % (11.5-14.5); RDW Standard Deviation 58.7 fL (36.4-46.3); Red Blood Count 3.67 M/uL (4.63-6.08); White Blood Count 7.79 K/ul (4.8-10.8)
[2022-08-05] MEDS: SULFAMETHOXAZOLE/TRIMETHOPRIM DS 800/160MG TAB PO SCH ×2 (08:16→20:04)
[2022-08-05] MEDS: buPROPion HCl 100 MG TABLET PO SCH ×2 (08:16→19:54)
[2022-08-05] MEDS: PANTOprazole 40 MG TAB PO SCH ×2 (08:16→20:03)
[2022-08-05] MEDS: FERROUS SULFATE 325 MG TAB PO SCH ×2 (08:17→16:47)
[2022-08-05] MEDS: CLOPIDOGREL BISULFATE 75 MG TAB PO SCH (08:17)
[2022-08-05] MEDS: FLUTICASONE/VILANTEROL 100/25MCG 14 PUFFS/INHALER INH SCH (08:17)
[2022-08-05] MEDS: FUROSEMIDE 40 MG/4 ML VIAL IV SCH ×2 (08:17→19:57)
[2022-08-05] MEDS: MULTIVITAMIN TAB PO SCH (08:18)
[2022-08-05] MEDS: SENNA 8.6 MG TAB PO SCH ×2 (08:18→20:06)
[2022-08-05] MEDS: DORZOLAMIDE/TIMOLOL 22.3/6.8MG/ML 10 ML BTL OP SCH ×3 (08:19→19:52)
[2022-08-05] MEDS: ASPIRIN 81 MG ECTAB PO SCH (08:19)
[2022-08-05] MEDS: SPIRONOLACTONE 12.5 MG TAB PO SCH ×2 (08:19→16:47)
[2022-08-05] MEDS: ATORVASTATIN 40 MG TAB PO SCH (08:19)
[2022-08-05] MEDS: prednisoLONE acetate 1% OP SUSP 5 ML BTL OP SCH ×2 (08:20→13:09)
[2022-08-05] MEDS: BRIMONIDINE TARTRATE 0.2% 5ML OP SCH ×2 (08:20→20:01)
[2022-08-05 08:33] LABS: Albumin Globulin Ratio 0.6 (0.9-2); Albumin Level 2.7 gm/dl (3.4-5.0); BUN Creatinine Ratio 36.1 (10-20); Bilirubin,Total 0.3 mg/dl (0.2-1.0); Calcium 8.8 mg/dl (8.5-10.1); Creatinine Clr Calc Pharmacy 90.5 ml/min; Est GFR (African American) 108.8 ml/min; Est GFR (Non-African American) 93.9 ml/min; Globulin 4.3 gm/dl (2.5-4.0); Magnesium 1.8 mg/dl (1.7-2.4); Potassium 3.5 mmol/L (3.5-5.1)
--- NOTE | 2022-08-05 10:15 | XRay Report ---
TWO VIEW CHEST CLINICAL HISTORY: Pleural effusion. FINDINGS: AP and lateral chest radiographs are compared to study dated 08/03/2022 and correlated with chest CT dated 03/08/2022. The AP view is degraded by patient rotation. The heart is enlarged note ath erosclerotic calcification of the thoracic aorta. There is pulmonary vascular congestion with evidenc e of interstitial edema. There are layering pleural effusions with dependent consolidation. No pneumo thorax is seen. Volume loss in the right lung is similar to previous. The skeletal structures are ost eopenic. There is chronic posttraumatic deformity of the right clavicle as well as healed left-sided rib fractures. Bilateral shoulder arthroplasties are in place. IMPRESSION: 1. Cardiomegaly with evidence of congestive failure and pulmonary edema. 2. Layering pleural effusions with dependent consolidation. These findings are similar to 08/03/2022. ACT 112: Negative or not required by law. Electronically signed by: Shade Guerin M.D. 08/05/2022 10:14 AM
[2022-08-05] MEDS: DOCUSATE SODIUM 100 MG CAP PO SCH ×2 (10:21→19:59)
--- NOTE | 2022-08-05 10:48 | Hospitalist Progress Note ---
Date of Service August 05, 2022 Assessment & Plan (1) Acute respiratory failure with hypoxia: Plan: This is a 71-year-old male with a history of HFpEF, bilateral pleural effusions, atrial fibrillation, coronary artery disease, peripheral artery disease, hyperlipidemia, anemia, pulmonary hypertension who presented to [facility] for R shoulder replacement on 07/26/22 and subsequently developed an increasing oxygen requirement, which is primarily suspected to be secondary to pulmonary edema Hospitalist Consulted POD#8 s/p reverse shoulder w/ increased O2 requirement 2- 4L with NO O2 at baseline reported and placed on BiPAP to maintain adequate oxygenation VBG unremarkable CXR w/ evidence CHF/pulm edema/layering effusions w/ dependent consolidation, increased from 07/07 imaging Repeat ECHO LV systolic function normal. Grade I diastolic dysfunction. Mild cLVH. RVSP elevated 40-50mmHG. Mild aortic root dilatation (2) (HFpEF) heart failure with preserved ejection fraction: Plan: Acute on chronic Prior ECHO in October w/ normal EF, mild concentric LVH, EF 65-70%. Patient had thoracentesis prior to surgery for 500cc with pulmonology -- transudative fluid 06/30 [07/28] s/p thoracentesis for 1650mL cloudy serous fluid with Dr Alvarez Of note, was eating cheeseburger and panamanian fries afternoon 08/01. Already was on low sodium diet, added further fluid restriction and AHA to diet. Educated to avoid excessive salt/fluid retention Continue Lasix, 40mg IV BID + spironolactone 12.5mg PO BID - increase to 25mg PO BID tomorrow Aiming net negative 1-1.5L daily, -ve 700ml yesterday (3) Atrial flutter, paroxysmal: Plan: Tx to PCU for afib/flutter -- converted back, maintained. Prior pAfib seen by Dr Sheffield but opted not for AC at that time. Cards consulted inpatient. Should ideally be on Eliquis BID vs Xarelto when bleeding ensured stable/dc. Continues on tele NSR. TSH wnl (4) Postoperative anemia: Plan: s/p 1 unit packed RBCs [07/29] 1u PRBC for hgb 7.2 , did get 1 dose of Venofer, remains on PO supplementation - Hgb stable and no evidence of any active GI bleeding Of note, given anemia requiring transfusion GI consulted given prior cirrhosis/esophageal varices on EGD earlier this year w/ Dr Rush/upper GI discomfort --> agreed to continue PPI BID, carafate. No inpatient scope. Plavix resumed and hgb stable on repeat Chronic iron deficiency anemia with baseline around 9-10 Hgb 8.8 on AM labs, however volume overloaded as above, will monitor. No bleeding reported Iron panel w/ low iron/trans % sat -- Venofer x 1, 1u PRBC 07/29 No evidence of any active GI bleeding Remains on daily PO supplementation Monitor for any bleeding -- none reported (5) Bilateral pleural effusion: Plan: 2/2 CHF as above (6) CAD (coronary artery disease): Plan: CAD/PAD/HLD, paroxysmal afib Catheterization during January 2021 admission with acute CHF -- demonstrated triple-vessel CAD that is currently being managed medically. Follows with Dr Sheffield for hx paroxysmal afib (patient prefer conservative approach no further monitoring/anticoagulation), 2nd degree AV block (had mobitz 1 second degree-AV identified while on BB, but patient back on BB due to CAD), patient declined implantable monitoring in past. Continue ASA 81mg, statin, metoprolol tartrate 25mg BID Cardiology consulted as above given patient flip afib/flutter and transferred to PCU. Consideration for anticoagulation if patient agreeable with Xarelto vs Eliquis as above. Would have CM tom check. Would need ASA discontinued in that event and continue anticoagulation/Plavix Keep K~4, Mag ~2 (additional K supplementation with Lasix) Continued discussions will need to be had regarding anticoagulation with Xarelto vs Eliquis given esophageal varices on EGD earlier this year, risk vs benefit (7) Pulmonary hypertension: Plan: History noted. Not appreciated on last TTE in 10/2021 Follows with [facility] [place], consulted while inpatient (8) Status post reverse total replacement of right shoulder: Plan: s/p Right Reverse Total Shoulder Arthroplasty(Right) with open biceps tenodesis as a distinct and separate procedure (modifier 59)- Yoel Ding, on 07/20 EBL 150cc Pain control/bowel regimen/DVT prophylaxis per primary service Was anticipating discharge 07/27, however see above, developed acute respiratory failure (9) Peripheral arterial disease: Plan: [facility]/p LLE angioplasty with stenting in October this year, does have narrowing/marked stenosis distal superficial femoral artery on duplex in March 19 Plavix held for shoulder surgery, resumed as above but now again on hold for anemia but given anemia/need for PRBC placed back on hold, since resumed Vascular consulted -- rec f/u with previous vascular surgeon for amputation as toes w/ demarcation NO PLANNED INTERVENTION (10) Esophageal varices: Plan: hx cirrhosis, ?2nd RILEY, no reported etoh use/abuse however did have B12 deficiency noted esophageal varices on EGD earlier this year with Dr rush, consulted given anemia and GI discomfort. Increased PPI to BID in meantime GI recs continuing PPI BID, no changes to current regimen (11) Chronic osteomyelitis of hip: Plan: Continue Bactrim 800/160 PO mg BID Plan VTE Prophylaxis - chemical deferred per prior discussions with cardiology Diet - Low Na, heart healthy, fluid restrict 1800ml Disposition - remain on PCU still hypervolemic Admission and Anticipated Discharge Date Admission Date: July 26, 2022 Subjective Reports today not being such a good day but in general is improving gradually back to his baseline shortness of breath. Can't tell me precisely what is wrong just he doesn't feel great. No leg swelling. Not on oxygen at baseline. Review of Systems Review of Systems: All systems reviewed & are unremarkable except as noted in Subjective Physical Exam Constitutional: WD/WN, vitals as above Neck: trachea midline, no thyromegaly Respiratory: normal respiratory effort and able to speak in complete sentences; no labored breathing and no cough Cardiovascular: RRR, no murmur, no edema Vessels: + JVD Gastrointestinal (Abdomen): normal bowel sounds, soft, nontender, no hepatosplenomegaly Musculoskeletal: Right arm in sling, Radial pulses palpable and normal bilaterally Gangrenous 1st toes bilaterally and 2nd toe on left - currently covered in Betadine Skin: gangrenous toes as above Psychiatric: A+Ox3, euthymic affect Results & Data Results & Data ([facility]) Vital Signs (Past 12 Hours) Vital Signs Temp Pulse Pulse Resp BP Pulse Ox O2 Del Method 08/05/22 08:00 36.6 C 79 19 117/71 97 Nasal Cannula 08/05/22 03:28 36.7 C 72 18 121/77 94 Nasal Cannula 08/04/22 23:11 36.6 C 72 18 108/68 92 Nasal Cannula O2 Flow Rate 08/05/22 08:00 2.0 08/05/22 03:28 08/04/22 23:11 2 PG Care Time/CCT Total # of Minutes Spent Total Time Spent with Patient: Total time spent is greater than 50% in coordination of care (as documented) at patient's floor/unit and/or counseling patient: Coding Level of Care Code 11776 Subseq Hosp Care Lvl 2 Diagnoses Acute respiratory failure with hypoxia J96.01 (HFpEF) heart failure with preserved ejection fraction I50.30 Atrial flutter, paroxysmal I48.92 Postoperative anemia D64.9 Bilateral pleural effusion J90 CAD (coronary artery disease) I25.10 Pulmonary hypertension I27.20 Status post reverse total replacement of right shoulder Z96.611 Peripheral arterial disease I73.9 Esophageal varices I85.00 Chronic osteomyelitis of hip M86.68
[2022-08-05] MEDS: TAMSULOSIN HCL 0.4 MG CAP PO SCH (19:59)
[2022-08-05] MEDS: LATANOPROST 0.005% OP SOLN 2.5 ML BTL OP SCH (20:02)
[2022-08-05] MEDS: traZODone HCL 50 MG TAB PO SCH (20:10)
[2022-08-06] MEDS: ACETAMINOPHEN 500 MG TAB PO SCH ×3 (06:03→21:16)
--- NOTE | 2022-08-06 07:00 | Orthopedic Progress Note ---
Date of Service August 06, 2022 Assessment & Plan (1) Status post reverse total replacement of right shoulder: He is doing well with regards to his right shoulder but he still requiring 3 L of oxygen by nasal cannula. The medical team is still actively working on some of his pulmonary edema. He is orthopedically ready for discharge when he is medically stable. We will continue to follow him closely. Eran Amin was seen and examined at bedside this morning. Overall is doing okay with regards to his shoulder. Is not having much pain. He has been wearing the sling as instructed. Hospitalist is still working on diuresing him.. Review of Systems All systems reviewed & are unremarkable except as noted in HPI & below. Physical Exam Physical examination the right shoulder shows incisions clean and dry. He is wearing his sling as instructed. He is neurovascular intact.. Results & Data Results & Data Laboratory Results . Diagnostic Findings . PG Care Time/CCT Total # of Minutes Spent Total Time Spent with Patient: Total time spent is greater than 50% in coordination of care (as documented) at patient's floor/unit and/or counseling patient: Coding Level of Care Code 64667 Post Operative Follow-Up Diagnoses Status post reverse total replacement of right shoulder Z96.611
[2022-08-06 07:01] LABS: Hematocrit (blood only) 29.8 % (40.1-51.0); Hemoglobin 9.2 g/dl (14.0-18.0); Mean Corpuscular Hemoglobin 25.1 pg (25.0-34.0); Mean Corpuscular Hgb Conc 30.9 g/dL (32.0-36.0); Mean Corpuscular Volume 81.4 fL (80.0-100.0); Mean Platelet Volume 8.7 fL (9.4-12.4); Platelet Count 506 K/uL (130-400); RDW Coefficient of Variation 19.8 % (11.5-14.5); RDW Standard Deviation 58.3 fL (36.4-46.3); Red Blood Count 3.66 M/uL (4.63-6.08); White Blood Count 6.33 K/ul (4.8-10.8)
[2022-08-06 07:40] LABS: Albumin Globulin Ratio 0.6 (0.9-2); Albumin Level 2.7 gm/dl (3.4-5.0); BUN Creatinine Ratio 34.7 (10-20); Bilirubin,Total 0.3 mg/dl (0.2-1.0); Calcium 8.7 mg/dl (8.5-10.1); Creatinine Clr Calc Pharmacy 90.8 ml/min; Est GFR (African American) 108.8 ml/min; Est GFR (Non-African American) 93.9 ml/min; Globulin 4.3 gm/dl (2.5-4.0); Magnesium 1.8 mg/dl (1.7-2.4); Potassium 3.5 mmol/L (3.5-5.1)
[2022-08-06] MEDS: oxyCODONE HCL IR 5 MG TAB (IMMEDIATE RELEASE) PO PRN ×4 (07:49→21:52)
[2022-08-06] MEDS: FERROUS SULFATE 325 MG TAB PO SCH ×2 (08:37→16:26)
[2022-08-06] MEDS: ASPIRIN 81 MG ECTAB PO SCH (08:37)
[2022-08-06] MEDS: ATORVASTATIN 40 MG TAB PO SCH (08:37)
[2022-08-06] MEDS: buPROPion HCl 100 MG TABLET PO SCH ×2 (08:38→20:10)
[2022-08-06] MEDS: BRIMONIDINE TARTRATE 0.2% 5ML OP SCH ×2 (08:38→20:12)
[2022-08-06] MEDS: CLOPIDOGREL BISULFATE 75 MG TAB PO SCH (08:39)
[2022-08-06] MEDS: DORZOLAMIDE/TIMOLOL 22.3/6.8MG/ML 10 ML BTL OP SCH ×3 (08:39→20:15)
[2022-08-06] MEDS: FLUTICASONE/VILANTEROL 100/25MCG 14 PUFFS/INHALER INH SCH (08:39)
[2022-08-06] MEDS: METOPROLOL TARTRATE 25 MG TAB PO SCH ×2 (08:40→20:13)
[2022-08-06] MEDS: GABAPENTIN 400 MG CAP PO SCH ×3 (08:40→20:13)
[2022-08-06] MEDS: FUROSEMIDE 40 MG/4 ML VIAL IV SCH ×2 (08:40→20:12)
[2022-08-06] MEDS: MULTIVITAMIN TAB PO SCH (08:41)
[2022-08-06] MEDS: PANTOprazole 40 MG TAB PO SCH ×2 (08:41→20:15)
[2022-08-06] MEDS: SPIRONOLACTONE 25 MG TAB PO SCH ×2 (08:41→16:26)
[2022-08-06] MEDS: SULFAMETHOXAZOLE/TRIMETHOPRIM DS 800/160MG TAB PO SCH ×2 (08:41→20:11)
[2022-08-06] MEDS: SENNA 8.6 MG TAB PO SCH ×2 (08:41→20:11)
[2022-08-06] MEDS: DOCUSATE SODIUM 100 MG CAP PO SCH ×2 (08:47→20:14)
[2022-08-06] MEDS ORDERED: FUROSEMIDE 40 MG/4 ML VIAL IV ONE (08:56)
[2022-08-06] MEDS: terbinafine HCL 250 MG TAB PO SCH (10:06)
[2022-08-06] MEDS: METHOCARBAMOL 500 MG TABLET PO PRN ×2 (13:23→21:16)
--- NOTE | 2022-08-06 19:32 | Hospitalist Progress Note ---
Date of Service August 06, 2022 Assessment & Plan (1) Acute respiratory failure with hypoxia: Plan: This is a 71-year-old male with a history of HFpEF, bilateral pleural effusions, atrial fibrillation, coronary artery disease, peripheral artery disease, hyperlipidemia, anemia, pulmonary hypertension who presented to [facility] for R shoulder replacement on 07/26/22 and subsequently developed an increasing oxygen requirement, which is primarily suspected to be secondary to pulmonary edema Hospitalist Consulted POD#8 s/p reverse shoulder w/ increased O2 requirement 2- 4L with NO O2 at baseline reported and placed on BiPAP to maintain adequate oxygenation VBG unremarkable CXR w/ evidence CHF/pulm edema/layering effusions w/ dependent consolidation, increased from 07/07 imaging Repeat ECHO LV systolic function normal. Grade I diastolic dysfunction. Mild cLVH. RVSP elevated 40-50mmHG. Mild aortic root dilatation (2) (HFpEF) heart failure with preserved ejection fraction: Plan: Acute on chronic Prior ECHO in October w/ normal EF, mild concentric LVH, EF 65-70%. Patient had thoracentesis prior to surgery for 500cc with pulmonology -- transudative fluid 06/30 [07/28] s/p thoracentesis for 1650mL cloudy serous fluid with Dr Alvarez Of note, was eating cheeseburger and austrian fries afternoon 08/01. Already was on low sodium diet, added further fluid restriction and AHA to diet. Educated to avoid excessive salt/fluid retention Increase Lasix 80mg IV BID + spironolactone 25mg PO BID Aiming net negative 1-1.5L daily, -ve 600ml yesterday - therefore increase both Lasix and spironolactone as above (3) Atrial flutter, paroxysmal: Plan: Tx to PCU for afib/flutter -- converted back, maintained. Prior pAfib seen by Dr Sheffield but opted not for AC at that time. Cards consulted inpatient. Should ideally be on Eliquis BID vs Xarelto when bleeding ensured stable/dc. Continues on tele NSR. TSH wnl (4) Postoperative anemia: Plan: s/p 1 unit packed RBCs [07/29] 1u PRBC for hgb 7.2 , did get 1 dose of Venofer, remains on PO supplementation - Hgb stable and no evidence of any active GI bleeding Of note, given anemia requiring transfusion GI consulted given prior cirrhosis/esophageal varices on EGD earlier this year w/ Dr Rush/upper GI discomfort --> agreed to continue PPI BID, carafate. No inpatient scope. Plavix resumed and hgb stable on repeat Chronic iron deficiency anemia with baseline around 9-10 Hgb 8.8 on AM labs, however volume overloaded as above, will monitor. No bleeding reported Iron panel w/ low iron/trans % sat -- Venofer x 1, 1u PRBC 07/29 No evidence of any active GI bleeding Remains on daily PO supplementation Monitor for any bleeding -- none reported (5) Bilateral pleural effusion: Plan: 2/2 CHF as above (6) CAD (coronary artery disease): Plan: CAD/PAD/HLD, paroxysmal afib Catheterization during January 2021 admission with acute CHF -- demonstrated tri ple-vessel CAD that is currently being managed medically. Follows with Dr Sheffield for hx paroxysmal afib (patient prefer conservative approach no further monitoring/anticoagulation), 2nd degree AV block (had mobitz 1 second degree-AV identified while on BB, but patient back on BB due to CAD), patient declined implantable monitoring in past. Continue ASA 81mg, statin, metoprolol tartrate 25mg BID Cardiology consulted as above given patient flip afib/flutter and transferred to PCU. Consideration for anticoagulation if patient agreeable with Xarelto vs Eliquis as above. Would have CM tom check. Would need ASA discontinued in that event and continue anticoagulation/Plavix Keep K~4, Mag ~2 (additional K supplementation with Lasix) Continued discussions will need to be had regarding anticoagulation with Xarelto vs Eliquis given esophageal varices on EGD earlier this year, risk vs benefit (7) Pulmonary hypertension: Plan: History noted. Not appreciated on last TTE in 10/2021 Follows with [facility] pulmonology, consulted while inpatient (8) Status post reverse total replacement of right shoulder: Plan: s/p Right Reverse Total Shoulder Arthroplasty(Right) with open biceps tenodesis as a distinct and separate procedure (modifier 59)- Yoel Ding, on 07/20 EBL 150cc Pain control/bowel regimen/DVT prophylaxis per primary service Was anticipating discharge 07/27, however see above, developed acute respiratory failure (9) Peripheral arterial disease: Plan: [facility] [place] [facility]p LLE angioplasty with stenting in October this year, does have narrowing/marked stenosis distal superficial femoral artery on duplex in March 19 Plavix held for shoulder surgery, resumed as above but now again on hold for anemia but given anemia/need for PRBC placed back on hold, since resumed Vascular consulted -- rec f/u with previous vascular surgeon for amputation as toes w/ demarcation NO PLANNED INTERVENTION (10) Esophageal varices: Plan: hx cirrhosis, ?2nd RILEY, no reported etoh use/abuse however did have B12 deficiency noted esophageal varices on EGD earlier this year with Dr rush, consulted given anemia and GI discomfort. Increased PPI to BID in meantime GI recs continuing PPI BID, no changes to current regimen (11) Chronic osteomyelitis of hip: Plan: Continue Bactrim 800/160 PO mg BID Plan VTE Prophylaxis - chemical deferred per prior discussions with cardiology Diet - Low Na, heart healthy, fluid restrict 1800ml Disposition - remain on PCU still hypervolemic Admission and Anticipated Discharge Date Admission Date: July 26, 2022 Subjective Much better day today. Able to reduce O2 in the room to 1LPM with O2 sats maintaining > 90%. Review of Systems Review of Systems: All systems reviewed & are unremarkable except as noted in Subjective Physical Exam Constitutional: WD/WN, vitals as above Neck: trachea midline, no thyromegaly Respiratory: normal respiratory effort and able to speak in complete sentences; no labored breathing and no cough Cardiovascular: RRR, no murmur, no edema Vessels: no JVD Gastrointestinal (Abdomen): normal bowel sounds, soft, nontender, no hepatosplenomegaly Psychiatric: A+Ox3, euthymic affect Results & Data Results & Data ([facility]) Vital Signs (Past 12 Hours) Vital Signs Temp Pulse Resp BP Pulse Ox O2 Del Method O2 Flow Rate 08/06/22 16:41 36.3 C L 73 18 116/70 96 Nasal Cannula 3 08/06/22 08:00 Nasal Cannula 3 08/06/22 11:19 36.7 C 70 18 110/71 96 Nasal Cannula 3 08/06/22 07:49 36.5 C 85 18 117/69 95 Nasal Cannula 3 PG Care Time/CCT Total # of Minutes Spent Total Time Spent with Patient: Total time spent is greater than 50% in coordination of care (as documented) at patient's floor/unit and/or counseling patient: Coding Level of Care Code 85265 Subseq Hosp Care Lvl 2 Diagnoses Acute respiratory failure with hypoxia J96.01 (HFpEF) heart failure with preserved ejection fraction I50.30 Atrial flutter, paroxysmal I48.92 Postoperative anemia D64.9 Bilateral pleural effusion J90 CAD (coronary artery disease) I25.10 Pulmonary hypertension I27.20 Status post reverse total replacement of right shoulder Z96.611 Peripheral arterial disease I73.9 Esophageal varices I85.00 Chronic osteomyelitis of hip M86.68
[2022-08-06] MEDS: TAMSULOSIN HCL 0.4 MG CAP PO SCH (20:14)
[2022-08-06] MEDS: LATANOPROST 0.005% OP SOLN 2.5 ML BTL OP SCH (20:15)
[2022-08-06] MEDS: traZODone HCL 50 MG TAB PO SCH (20:29)
[2022-08-07] MEDS: oxyCODONE HCL IR 5 MG TAB (IMMEDIATE RELEASE) PO PRN ×4 (02:25→19:38)
[2022-08-07] MEDS: ACETAMINOPHEN 500 MG TAB PO SCH ×3 (05:49→21:25)
[2022-08-07] MEDS: METHOCARBAMOL 500 MG TABLET PO PRN ×2 (05:50→16:12)
[2022-08-07 08:40] LABS: BUN Creatinine Ratio 40.6 (10-20); Calcium 8.5 mg/dl (8.5-10.1); Creatinine Clr Calc Pharmacy 102.3 ml/min; Est GFR (African American) 114.2 ml/min; Est GFR (Non-African American) 98.5 ml/min; Potassium 3.7 mmol/L (3.5-5.1)
--- NOTE | 2022-08-07 08:47 | Orthopedic Progress Note ---
Date of Service August 07, 2022 Assessment & Plan (1) Status post reverse total replacement of right shoulder: Overall he is doing well with regards to his right shoulder. He is not having much pain. He is wearing his sling as instructed. The hospitalist is still working on his pulmonary edema. He is orthopedically stable for discharge when medically ready. Eran Amin was seen and examined at bedside this morning. Overall he is doing fairly well with regards to his right shoulder. He is not having much pain. He still has a little bit of pulmonary edema and the hospitalist is working on him with that. He is currently on 2 L of oxygen by nasal cannula. He has no new complaints.. Review of Systems All systems reviewed & are unremarkable except as noted in HPI & below. Physical Exam On physical examination of the right shoulder, there is a dressing over the incision. The babatunde have been removed. There is no drainage. He has active motion of his hand and his wrist.. Results & Data Results & Data Laboratory Results . Diagnostic Findings . PG Care Time/CCT Total # of Minutes Spent Total Time Spent with Patient: Total time spent is greater than 50% in coordination of care (as documented) at patient's floor/unit and/or counseling patient: Coding Level of Care Code 29409 Post Operative Follow-Up Diagnoses Status post reverse total replacement of right shoulder Z96.611
[2022-08-07] MEDS: buPROPion HCl 100 MG TABLET PO SCH ×2 (08:50→20:27)
[2022-08-07] MEDS: GABAPENTIN 400 MG CAP PO SCH ×3 (08:50→20:28)
[2022-08-07] MEDS: SPIRONOLACTONE 25 MG TAB PO SCH ×2 (08:51→16:11)
[2022-08-07] MEDS: ATORVASTATIN 40 MG TAB PO SCH (08:51)
[2022-08-07] MEDS: FERROUS SULFATE 325 MG TAB PO SCH ×2 (08:51→16:11)
[2022-08-07] MEDS: SENNA 8.6 MG TAB PO SCH ×2 (08:51→20:28)
[2022-08-07] MEDS: ASPIRIN 81 MG ECTAB PO SCH (08:52)
[2022-08-07] MEDS: CLOPIDOGREL BISULFATE 75 MG TAB PO SCH (08:52)
[2022-08-07] MEDS: terbinafine HCL 250 MG TAB PO SCH (08:52)
[2022-08-07] MEDS: PANTOprazole 40 MG TAB PO SCH ×2 (08:52→20:28)
[2022-08-07] MEDS: SULFAMETHOXAZOLE/TRIMETHOPRIM DS 800/160MG TAB PO SCH ×2 (08:53→20:28)
[2022-08-07] MEDS: MULTIVITAMIN TAB PO SCH (08:53)
[2022-08-07] MEDS: METOPROLOL TARTRATE 25 MG TAB PO SCH ×2 (08:53→20:28)
[2022-08-07] MEDS: FLUTICASONE/VILANTEROL 100/25MCG 14 PUFFS/INHALER INH SCH (08:54)
[2022-08-07] MEDS: DORZOLAMIDE/TIMOLOL 22.3/6.8MG/ML 10 ML BTL OP SCH ×3 (08:54→20:27)
[2022-08-07] MEDS: FUROSEMIDE 40 MG/4 ML VIAL IV SCH ×2 (08:54→20:28)
[2022-08-07] MEDS: BRIMONIDINE TARTRATE 0.2% 5ML OP SCH ×2 (08:55→20:27)
[2022-08-07] MEDS: DOCUSATE SODIUM 100 MG CAP PO SCH ×2 (08:55→20:27)
[2022-08-07] MEDS: LATANOPROST 0.005% OP SOLN 2.5 ML BTL OP SCH (20:28)
[2022-08-07] MEDS: traZODone HCL 50 MG TAB PO SCH (20:28)
[2022-08-07] MEDS: TAMSULOSIN HCL 0.4 MG CAP PO SCH (20:28)
--- NOTE | 2022-08-07 21:35 | Hospitalist Progress Note ---
Date of Service August 07, 2022 Assessment & Plan (1) Acute respiratory failure with hypoxia: Plan: Attending: The Katie Impression: This is a 71-year-old male with a history of HFpEF, bilateral pleural effusions, atrial fibrillation, coronary artery disease, peripheral artery disease, hyperlipidemia, anemia, pulmonary hypertension who presented to [facility] for R shoulder replacement on 07/26/22 and subsequently developed an increasing oxygen requirement, which is primarily suspected to be secondary to pulmonary edema Hospitalist Consulted POD#8 s/p reverse shoulder w/ increased O2 requirement 2- 4L with NO O2 at baseline reported and placed on BiPAP to maintain adequate oxygenation VBG unremarkable CXR w/ evidence CHF/pulm edema/layering effusions w/ dependent consolidation, increased from 07/07 imaging Repeat ECHO LV systolic function normal. Grade I diastolic dysfunction. Mild cLVH. RVSP elevated 40-50mmHG. Mild aortic root dilatation Patient is currently saturating well on 2 L/min via nasal cannula at 95%. Held oxygen and patient maintain SaO2 of 92% on room air Continue to titrate supplemental oxygen as tolerated (2) (HFpEF) heart failure with preserved ejection fraction: Plan: Acute on chronic Prior ECHO in October w/ normal EF, mild concentric LVH, EF 65-70%. Patient had thoracentesis prior to surgery for 500cc with pulmonology -- transudative fluid 06/3007/07/2022 s/p right thoracentesis for 450 ml of fluid with Shade Cortez PA-C [07/28] s/p left thoracentesis for 1650mL cloudy serous fluid with Dr Alvarez Of note, was eating cheeseburger and lithuanian fries afternoon 08/01 and again today. Already was on low sodium diet, added further fluid restriction and AHA to diet. Educated to avoid excessive salt/fluid retention Continues on Increased dose of Lasix 80mg IV BID + spironolactone 25mg PO BID Aiming net negative 1-1.5L daily, Currently -17.4 liters this admission (3) Atrial flutter, paroxysmal: Plan: Tx to PCU for afib/flutter -- converted back, maintained. Prior pAfib seen by Dr Sheffield but opted not for AC at that time. Cards consulted inpatient. Should ideally be on Eliquis BID vs Xarelto when bleeding ensured stable/dc. Continues on tele NSR X the last 48 hours. TSH wnl Will re-evaluate tomorrow. If no further a. fib, can transfer to med/surg (4) Postoperative anemia: Plan: s/p 1 unit packed RBCs [07/29] 1u PRBC for hgb 7.2 , did get 1 dose of Venofer, remains on PO supplementation - Hgb stable and no evidence of any active GI bleeding Of note, given anemia requiring transfusion GI consulted given prior cirrhosis/esophageal varices on EGD earlier this year w/ Dr Rush/upper GI discomfort --> agreed to continue PPI BID, carafate. No inpatient scope. Plavix resumed and hgb stable on repeat Chronic iron deficiency anemia with baseline around 9-10 Hgb stable at 9.2. However, volume overloaded as above, will monitor. No active bleeding Iron panel w/ low iron/trans % sat -- Venofer x 1, 1u PRBC 07/29 No evidence of any active GI bleeding Remains on daily PO supplementation (5) Bilateral pleural effusion: Plan: 2/2 CHF as above (6) CAD (coronary artery disease): Plan: CAD/PAD/HLD, paroxysmal afib Catheterization during January 2021 admission with acute CHF -- demonstrated triple-vessel CAD that is currently being managed medically. Follows with Dr Sheffield for hx paroxysmal afib (patient prefer conservative approach no further monitoring/anticoagulation), 2nd degree AV block (had mobitz 1 second degree-AV identified while on BB, but patient back on BB due to CAD), patient declined implantable monitoring in past. Continue ASA 81mg, statin, metoprolol tartrate 25mg BID Cardiology consulted as above given patient flip afib/flutter and transferred to PCU. Consideration for anticoagulation if patient agreeable with Xarelto vs Eliquis as above. Would have CM tom check. Would need ASA discontinued in that event and continue anticoagulation/Plavix Keep K~4, Mag ~2 (additional K supplementation with Lasix) Continued discussions will need to be had regarding anticoagulation with Xarelto vs Eliquis given esophageal varices on EGD earlier this year, risk vs benefit (7) Pulmonary hypertension: Plan: History noted. Not appreciated on last TTE in 10/2021 Follows with [facility] pulmonology, consulted while inpatient (8) Status post reverse total replacement of right shoulder: Plan: s/p Right Reverse Total Shoulder Arthroplasty(Right) with open biceps tenodesis as a distinct and separate procedure (modifier 59)- Yoel Ding, DO on 07/20 EBL 150cc Pain control/bowel regimen/DVT prophylaxis per primary service Was anticipating discharge 07/27, however see above, developed acute respiratory failure Anticipate transfer to [facility] tomorrow (9) Peripheral arterial disease: Plan: [facility] [place] [facility]/p LLE angioplasty with stenting in October this year, does have narrowing/marked stenosis distal superficial femoral artery on duplex in March 19 Plavix held for shoulder surgery, resumed as above but now again on hold for anemia but given anemia/need for PRBC placed back on hold, since resumed Vascular consulted -- rec f/u with previous vascular surgeon for amputation as toes w/ demarcation NO PLANNED INTERVENTION (10) Esophageal varices: Plan: hx cirrhosis, ?2nd RILEY, no reported etoh use/abuse however did have B12 deficiency noted esophageal varices on EGD earlier this year with Dr rush, consulted given anemia and GI discomfort. Increased PPI to BID in meantime GI recs continuing PPI BID, no changes to current regimen (11) Chronic osteomyelitis of hip: Plan: Continue Bactrim 800/160 PO mg BID Plan VTE Prophylaxis - chemical deferred per prior discussions with cardiology Diet - Low Na, heart healthy, fluid restrict 1800ml Disposition - remain on PCU for now for A. fib. May downgrade to med surg tomorrow Admission and Anticipated Discharge Date Admission Date: July 26, 2022 Supervising Physician Co-Signing Physician Notes Attending Attestation - Chart reviewed, care plan d/w ANGELY Cortez I agree w/ the vargas components of his documentation. Doron Wilson MD Subjective Attending: Dr. Wilson Patient seen and examined in room 222. He is in bed. Eating breakfast without difficulty. He denies any acute pain. Unable to palpate pedal pulses but patient states that he can feel me examining his feet. Gangrenous toes but no discharge or weeping. Patient denies any fever, chills, sweats, rigors. No chest pain or tightness. No other acute complaints. Review of Systems Review of Systems: A total of 10 systems was reviewed and is negative other than as listed in the HPI Physical Exam Physical Exam: GENERAL : No acute distress EYES: No icterus, gaze conjugate NOSE: No evidence of epistaxis MOUTH: No lesions or candidiasis NECK: Supple LUNGS: CTA B/L, no wheezes, rales or rhonchi HEART: Regular, rate controlled ABDOMEN: Soft, NT, ND, BS Present EXTREMITIES: No LE edema, pedal pulses intact NEURO: A&OX3 Results & Data Results & Data ([facility]) Vital Signs (Past 12 Hours) Vital Signs Temp Pulse Pulse Resp BP Pulse Ox O2 Del Method 08/07/22 19:29 36.7 C 85 17 137/84 92 Nasal Cannula 08/07/22 15:56 36.7 C 77 20 112/62 97 Nasal Cannula 08/07/22 11:10 36.4 C L 79 17 119/77 96 Nasal Cannula O2 Flow Rate 08/07/22 19:29 1 08/07/22 15:56 1 08/07/22 11:10 2 Critical Care Results & Data Vital Signs (Past 12 Hours) Vital Signs Temp Pulse Pulse Resp BP Pulse Ox O2 Del Method 08/07/22 19:29 36.7 C 85 17 137/84 92 Nasal Cannula 08/07/22 15:56 36.7 C 77 20 112/62 97 Nasal Cannula 08/07/22 11:10 36.4 C L 79 17 119/77 96 Nasal Cannula O2 Flow Rate 08/07/22 19:29 1 08/07/22 15:56 1 08/07/22 11:10 2 Lab & Micro Results (Past 24 Hours) No Data to Display No Data to Display No Data to Display I & O Totals 24 Hours 08/06/22 08/07/22 08/08/22 06:59 06:59 06:59 Intake Total 400 / 400 1255 / 1255 735 / 735 Output Total 1000 / 1000 975 / 975 875 / 875 Balance -600 / -600 280 / 280 -140 / -140 Cumulative 06/17/22 08:35 thru 08/07/22 20:37 Intake Total 65897.500 Output Total 21053 Balance -19605.500 RT Ventilator Mngmt (Last Documented) Ventilator Ordered Settings Respiratory Rate 17 08/07/22 19:29 Fraction of Inspired Oxygen 40 07/28/22 08:30 Ventilator - PT Measurements Respiratory Rate 17 PG Care Time/CCT Total # of Minutes Spent Total Time Spent with Patient: Total time spent is greater than 50% in coordination of care (as documented) at patient's floor/unit and/or counseling patient: Coding Level of Care Code 56444 Subseq Hosp Care Lvl 2 Diagnoses Acute respiratory failure with hypoxia J96.01 (HFpEF) heart failure with preserved ejection fraction I50.30 Atrial flutter, paroxysmal I48.92 Postoperative anemia D64.9 Bilateral pleural effusion J90 CAD (coronary artery disease) I25.10 Pulmonary hypertension I27.20 Status post reverse total replacement of right shoulder Z96.611 Peripheral arterial disease I73.9 Esophageal varices I85.00 Chronic osteomyelitis of hip M86.68
[2022-08-08] MEDS: oxyCODONE HCL IR 5 MG TAB (IMMEDIATE RELEASE) PO PRN ×5 (03:45→23:38)
[2022-08-08] MEDS: METHOCARBAMOL 500 MG TABLET PO PRN ×2 (03:45→19:42)
[2022-08-08] MEDS: ACETAMINOPHEN 500 MG TAB PO SCH ×3 (06:22→20:49)
[2022-08-08 07:00] LABS: BUN Creatinine Ratio 46.3 (10-20); Calcium 8.5 mg/dl (8.5-10.1); Creatinine Clr Calc Pharmacy 108.4 ml/min; Est GFR (African American) 122.4 ml/min; Est GFR (Non-African American) 105.6 ml/min; Potassium 3.5 mmol/L (3.5-5.1)
--- NOTE | 2022-08-08 07:52 | Orthopedic Progress Note ---
Date of Service August 08, 2022 Assessment & Plan (1) Status post reverse total replacement of right shoulder: He is doing well with recent guards to his right shoulder. He is also improving with regards to his pulmonary edema. He is currently in the PCU for his A. fib. They are hoping to transfer him to [facility] soon. He is orthopedically stable for discharge when medically ready. Eran Amin was seen and examined at bedside this morning. Overall he is doing fairly well with his right shoulder. He is not having much pain. He is wearing his sling. He is down to 1 L of oxygen by nasal cannula. He has no new complaints.. Review of Systems All systems reviewed & are unremarkable except as noted in HPI & below. Physical Exam On physical examination the right shoulder, the incision is clean and dry. He was wearing his sling as instructed.. Results & Data Results & Data Laboratory Results . Diagnostic Findings . PG Care Time/CCT Total # of Minutes Spent Total Time Spent with Patient: Total time spent is greater than 50% in coordination of care (as documented) at patient's floor/unit and/or counseling patient: Coding Level of Care Code 14457 Post Operative Follow-Up Diagnoses Status post reverse total replacement of right shoulder Z96.611
[2022-08-08] MEDS: ATORVASTATIN 40 MG TAB PO SCH (08:40)
[2022-08-08] MEDS: buPROPion HCl 100 MG TABLET PO SCH ×2 (08:40→20:51)
[2022-08-08] MEDS: METOPROLOL TARTRATE 25 MG TAB PO SCH ×2 (08:40→20:50)
[2022-08-08] MEDS: PANTOprazole 40 MG TAB PO SCH ×2 (08:40→20:52)
[2022-08-08] MEDS: SENNA 8.6 MG TAB PO SCH ×2 (08:40→20:51)
[2022-08-08] MEDS: terbinafine HCL 250 MG TAB PO SCH (08:41)
[2022-08-08] MEDS: FERROUS SULFATE 325 MG TAB PO SCH ×2 (08:41→16:56)
[2022-08-08] MEDS: SULFAMETHOXAZOLE/TRIMETHOPRIM DS 800/160MG TAB PO SCH ×2 (08:41→20:53)
[2022-08-08] MEDS: CLOPIDOGREL BISULFATE 75 MG TAB PO SCH (08:41)
[2022-08-08] MEDS: DORZOLAMIDE/TIMOLOL 22.3/6.8MG/ML 10 ML BTL OP SCH ×3 (08:41→20:55)
[2022-08-08] MEDS: SPIRONOLACTONE 25 MG TAB PO SCH ×2 (08:41→16:56)
[2022-08-08] MEDS: BRIMONIDINE TARTRATE 0.2% 5ML OP SCH ×2 (08:41→20:55)
[2022-08-08] MEDS: ASPIRIN 81 MG ECTAB PO SCH (08:41)
[2022-08-08] MEDS: MULTIVITAMIN TAB PO SCH (08:41)
[2022-08-08] MEDS: FLUTICASONE/VILANTEROL 100/25MCG 14 PUFFS/INHALER INH SCH (08:41)
[2022-08-08] MEDS: GABAPENTIN 400 MG CAP PO SCH ×3 (08:41→20:48)
[2022-08-08] MEDS: FUROSEMIDE 40 MG/4 ML VIAL IV SCH ×2 (08:42→20:54)
[2022-08-08] MEDS: DOCUSATE SODIUM 100 MG CAP PO SCH ×2 (08:42→20:54)
[2022-08-08] MEDS: TAMSULOSIN HCL 0.4 MG CAP PO SCH (20:53)
[2022-08-08] MEDS: traZODone HCL 50 MG TAB PO SCH (20:55)
[2022-08-08] MEDS: LATANOPROST 0.005% OP SOLN 2.5 ML BTL OP SCH (20:55)
[2022-08-08] MEDS ORDERED: oxyCODONE HCL IR 5 MG TAB (IMMEDIATE RELEASE) PO STA (21:33)
[2022-08-08] MEDS ORDERED: GABAPENTIN 100 MG CAP PO ONE (21:56)
--- NOTE | 2022-08-08 22:09 | Hospitalist Progress Note ---
Date of Service August 08, 2022 Assessment & Plan (1) Acute respiratory failure with hypoxia: Plan: Attending: The Katie Impression: This is a 71-year-old male with a history of HFpEF, bilateral pleural effusions, atrial fibrillation, coronary artery disease, peripheral artery disease, hyperlipidemia, anemia, pulmonary hypertension who presented to [facility] for R shoulder replacement on 07/26/22 and subsequently developed an increasing oxygen requirement, which is primarily suspected to be secondary to pulmonary edema Hospitalist Consulted POD#18 s/p reverse shoulder w/ increased O2 requirement 2- 4L with NO O2 at baseline reported and placed on BiPAP to maintain adequate oxygenation Repeat ECHO LV systolic function normal. Grade I diastolic dysfunction. Mild cLVH. RVSP elevated 40-50mmHG. Mild aortic root dilatation Patient is currently saturating well on 2 L/min via nasal cannula at 95%. Held oxygen and patient maintain SaO2 of 92% on room air Continue to titrate supplemental oxygen as tolerated to maintain SaO2 >90% (2) (HFpEF) heart failure with preserved ejection fraction: Plan: Acute on chronic Prior ECHO in October w/ normal EF, mild concentric LVH, EF 65-70%. Patient had thoracentesis prior to surgery for 500cc with pulmonology -- transudative fluid 06/3007/07/2022 s/p right thoracentesis for 450 ml of fluid with Shade Cortez PA-C [07/28] s/p left thoracentesis for 1650mL cloudy serous fluid with Dr Alvarez Of note, was eating cheeseburger and algerian fries afternoon 08/01 and again today. Already was on low sodium diet, added further fluid restriction and AHA to diet. Educated to avoid excessive salt/fluid retention Continues on Increased dose of Lasix 80mg IV BID + spironolactone 25mg PO BID Negative 19.7 L out this admission (3) Atrial flutter, paroxysmal: Plan: Tx to PCU for afib/flutter -- converted back, maintained. Prior pAfib seen by Dr Sheffield but opted not for AC at that time. Cards consulted inpatient. Should ideally be on Eliquis BID vs Xarelto when bleeding ensured stable/dc. Continues on tele NSR X the last 48 hours. TSH wnl Patient can transfer to med/surg (4) Postoperative anemia: Plan: s/p 1 unit packed RBCs [07/29] 1u PRBC for hgb 7.2 , did get 1 dose of Venofer, remains on PO supplementation - Hgb stable and no evidence of any active GI bleeding Of note, given anemia requiring transfusion GI consulted given prior cirrhosis/esophageal varices on EGD earlier this year w/ Dr Ordaz/upper GI discomfort --> agreed to continue PPI BID, carafate. No inpatient scope. Plavix resumed and hgb stable on repeat Chronic iron deficiency anemia with baseline around 9-10 Hgb stable at 9.2. However, volume overloaded as above, will monitor. No active bleeding Iron panel w/ low iron/trans % sat -- Venofer x 1, 1u PRBC 07/29 No evidence of any active GI bleeding Remains on daily PO supplementation (5) Bilateral pleural effusion: Plan: 2/ CHF as above (6) CAD (coronary artery disease): Plan: CAD/PAD/HLD, paroxysmal afib Catheterization during January 2021 admission with acute CHF -- demonstrated triple-vessel CAD that is currently being managed medically. Follows with Dr Sheffield for hx paroxysmal afib (patient prefer conservative approach no further monitoring/anticoagulation), 2nd degree AV block (had mobitz 1 second degree-AV identified while on BB, but patient back on BB due to CAD), patient declined implantable monitoring in past. Continue ASA 81mg, statin, metoprolol tartrate 25mg BID Cardiology consulted as above given patient flip afib/flutter and transferred to PCU. Consideration for anticoagulation if patient agreeable with Xarelto vs Eliquis as above. Would have CM tom check. Would need ASA discontinued in that event and continue anticoagulation/Plavix Keep K~4, Mag ~2 (additional K supplementation with Lasix) Continued discussions will need to be had regarding anticoagulation with Xarelto vs Eliquis given esophageal varices on EGD earlier this year, risk vs benefit (7) Pulmonary hypertension: Plan: History noted. Not appreciated on last TTE in 10/2021 [place] [facility] [place], consulted while inpatient (8) Status post reverse total replacement of right shoulder: Plan: s/p Right Reverse Total Shoulder Arthroplasty(Right) with open biceps tenodesis as a distinct and separate procedure (modifier 59)- Yoel Ding, DO on 07/20 EBL 150cc Pain control/bowel regimen/DVT prophylaxis per primary service Was anticipating discharge 07/27, however see above, developed acute respiratory failure. Now resolved but requiring 3 L/min via NC Anticipate transfer to [facility] tomorrow (9) Peripheral arterial disease: Plan: [facility] [place] [facility]/p LLE angioplasty with stenting in October this year, does have narrowing/marked stenosis distal superficial femoral artery on duplex in March 19 Plavix held for shoulder surgery, resumed as above but now again on hold for anemia but given anemia/need for PRBC placed back on hold, since resumed Vascular consulted -- rec f/u with previous vascular surgeon for amputation as toes w/ demarcation NO PLANNED INTERVENTION (10) Esophageal varices: Plan: hx cirrhosis, ?2nd RILEY, no reported etoh use/abuse however did have B12 deficiency noted esophageal varices on EGD earlier this year with Dr Ordaz, consulted given anemia and GI discomfort. Increased PPI to BID in meantime GI recs continuing PPI BID, no changes to current regimen Will need to continue with outpatient follow up (11) Chronic osteomyelitis of hip: Plan: Continue Bactrim 800/160 PO mg BID Plan VTE Prophylaxis - chemical deferred per prior discussions with cardiology Diet - Low Na, heart healthy, fluid restrict 1800ml Disposition - Can downgrade to med surg Admission and Anticipated Discharge Date Admission Date: July 26, 2022 Supervising Physician Co-Signing Physician Notes Attending Attestation - Chart reviewed, care plan d/w ANGELY Cortez I agree w/ the vargas components of his documentation. Doron Wilson MD Subjective Attending: Dr. Wilson Patient seen in room 222. No acute complaints. Denies fever. Eating well. Continues to tolerate supplemental oxygen. No pain in feet. No change in gangrenous toes. No other acute complaints. Review of Systems Review of Systems: A total of 10 systems was reviewed and is negative other than as listed in the HPI Physical Exam Physical Exam: GENERAL : No acute distress EYES: No icterus, gaze conjugate NOSE: No evidence of epistaxis MOUTH: No lesions or candidiasis NECK: Supple LUNGS: CTA B/L, no wheezes, rales or rhonchi HEART: Regular, rate controlled ABDOMEN: Soft, NT, ND, BS Present EXTREMITIES: No LE edema, pedal pulses intact NEURO: A&OX3 Results & Data Results & Data ([facility]) Vital Signs (Past 12 Hours) Vital Signs Temp Pulse Pulse Resp BP Pulse Ox O2 Del Method 08/08/22 20:47 82 122/75 08/08/22 19:00 36.6 C 84 20 113/65 93 Nasal Cannula 08/08/22 19:12 Nasal Cannula 08/08/22 15:28 36.5 C 72 16 119/74 95 Nasal Cannula 08/08/22 11:29 36.7 C 70 16 124/78 90 Nasal Cannula 08/08/22 10:27 Nasal Cannula O2 Flow Rate 08/08/22 20:47 08/08/22 19:00 2 08/08/22 19:12 2 08/08/22 15:28 2 08/08/22 11:29 2 08/08/22 10:27 2 Critical Care Results & Data Vital Signs (Past 12 Hours) Vital Signs Temp Pulse Pulse Resp BP Pulse Ox O2 Del Method 08/08/22 20:47 82 122/75 08/08/22 19:00 36.6 C 84 20 113/65 93 Nasal Cannula 08/08/22 19:12 Nasal Cannula 08/08/22 15:28 36.5 C 72 16 119/74 95 Nasal Cannula 08/08/22 11:29 36.7 C 70 16 124/78 90 Nasal Cannula 08/08/22 10:27 Nasal Cannula O2 Flow Rate 08/08/22 20:47 08/08/22 19:00 2 08/08/22 19:12 2 08/08/22 15:28 2 08/08/22 11:29 2 08/08/22 10:27 2 Lab & Micro Results (Past 24 Hours) No Data to Display No Data to Display No Data to Display Microbiology 07/28/22 13:56 Acid Fast Bacilli Smear - Final Pleural Fluid Acid Fast Bacilli Culture - Preliminary No Acid-Fast Bacilli Isolated - Report 1, Additional Report to Follow. I & O Totals 24 Hours 08/07/22 08/08/22 08/09/22 06:59 06:59 06:59 Intake Total 1255 / 1255 885 / 885 Output Total 975 / 975 1375 / 1375 925 / 925 Balance 280 / 280 -490 / -490 -925 / -925 Cumulative 06/17/22 08:35 thru 08/08/22 13:47 Intake Total 36612.500 Output Total 92309 Balance -68909.500 RT Ventilator Mngmt (Last Documented) Ventilator Ordered Settings Respiratory Rate 20 08/08/22 19:00 Fraction of Inspired Oxygen 40 07/28/22 08:30 Ventilator - PT Measurements Respiratory Rate 20 PG Care Time/CCT Total # of Minutes Spent Total Time Spent with Patient: Total time spent is greater than 50% in coordination of care (as documented) at patient's floor/unit and/or counseling patient: Coding Level of Care Code 32782 Subseq Hosp Care Lvl 2 Diagnoses Acute respiratory failure with hypoxia J96.01 (HFpEF) heart failure with preserved ejection fraction I50.30 Atrial flutter, paroxysmal I48.92 Postoperative anemia D64.9 Bilateral pleural effusion J90 CAD (coronary artery disease) I25.10 Pulmonary hypertension I27.20 Status post reverse total replacement of right shoulder Z96.611 Peripheral arterial disease I73.9 Esophageal varices I85.00 Chronic osteomyelitis of hip M86.68
[2022-08-09] MEDS: oxyCODONE HCL IR 5 MG TAB (IMMEDIATE RELEASE) PO PRN ×2 (04:44→08:36)
[2022-08-09] MEDS: ACETAMINOPHEN 500 MG TAB PO SCH (06:16)
[2022-08-09] MEDS: FERROUS SULFATE 325 MG TAB PO SCH (08:32)
[2022-08-09] MEDS: METOPROLOL TARTRATE 25 MG TAB PO SCH (08:32)
[2022-08-09] MEDS: GABAPENTIN 400 MG CAP PO SCH (08:32)
[2022-08-09] MEDS: SPIRONOLACTONE 25 MG TAB PO SCH (08:32)
[2022-08-09] MEDS: SULFAMETHOXAZOLE/TRIMETHOPRIM DS 800/160MG TAB PO SCH (08:32)
[2022-08-09] MEDS: ASPIRIN 81 MG ECTAB PO SCH (08:33)
[2022-08-09] MEDS: terbinafine HCL 250 MG TAB PO SCH (08:33)
[2022-08-09] MEDS: SENNA 8.6 MG TAB PO SCH (08:33)
[2022-08-09] MEDS: buPROPion HCl 100 MG TABLET PO SCH (08:33)
[2022-08-09] MEDS: CLOPIDOGREL BISULFATE 75 MG TAB PO SCH (08:33)
[2022-08-09] MEDS: ATORVASTATIN 40 MG TAB PO SCH (08:33)
[2022-08-09] MEDS: MULTIVITAMIN TAB PO SCH (08:33)
[2022-08-09] MEDS: METHOCARBAMOL 500 MG TABLET PO PRN (08:33)
[2022-08-09] MEDS: PANTOprazole 40 MG TAB PO SCH (08:33)
[2022-08-09] MEDS: DORZOLAMIDE/TIMOLOL 22.3/6.8MG/ML 10 ML BTL OP SCH (08:34)
[2022-08-09] MEDS: DOCUSATE SODIUM 100 MG CAP PO SCH (08:34)
[2022-08-09] MEDS: FLUTICASONE/VILANTEROL 100/25MCG 14 PUFFS/INHALER INH SCH (08:34)
[2022-08-09 08:35] LABS: BUN Creatinine Ratio 31.3 (10-20); Calcium 8.6 mg/dl (8.5-10.1); Creatinine Clr Calc Pharmacy 71.5 ml/min; Est GFR (African American) 102.6 ml/min; Est GFR (Non-African American) 88.5 ml/min; Potassium 3.8 mmol/L (3.5-5.1)
[2022-08-09] MEDS: BRIMONIDINE TARTRATE 0.2% 5ML OP SCH (08:35)
[2022-08-09] MEDS: FUROSEMIDE 40 MG/4 ML VIAL IV SCH (08:35)
--- NOTE | 2022-08-09 08:52 | Orthopedic Progress Note ---
Date of Service August 09, 2022 Assessment & Plan (1) Status post reverse total replacement of right shoulder: He is doing well with regards to his right shoulder. His pulmonary edema keeps fluctuating. He is currently on 3.5 L by nasal cannula. He is orthopedically stable for discharge when medically ready. The hospitalist is still working on his oxygen saturations. Eran Amin was seen and examined at bedside this morning. He is doing well with regards to his right shoulder. He is improving with regards to his lungs. He has been transferred from the PCU to the [facility] unit. He has no new complaints.. Review of Systems All systems reviewed & are unremarkable except as noted in HPI & below. Physical Exam On physical examination of his right shoulder, the incision is clean and dry. The dressing was fully removed. He is neurovascular intact.. Results & Data Results & Data Laboratory Results . Diagnostic Findings . PG Care Time/CCT Total # of Minutes Spent Total Time Spent with Patient: Total time spent is greater than 50% in coordination of care (as documented) at patient's floor/unit and/or counseling patient: Coding Level of Care Code 65989 Post Operative Follow-Up Diagnoses Status post reverse total replacement of right shoulder Z96.611
--- NOTE | 2022-08-09 11:24 | Discharge Summary ---
Date of Service August 09, 2022 Admission HPI Per Admitting Provider Brennan is a pleasant 71-year-old male who is been doing with chronic increasing right shoulder pain. X-rays and clinical examination have been diagnostic for cuff arthropathy of the right shoulder. I did a left reverse shoulder arthroplasty on him in 2019 he has done well with that. After failing conservative treatment, he is elected to proceed with a right reverse shoulder replacement. Admission Exam Per Admitting Provider Physical Exam On physical examination the right shoulder, he has decreased range of motion weakness throughout. He has pain of the glenohumeral joint line.. Constitutional WD/WN, vitals as above Eyes PERRL, conjunctivae normal, anicteric sclerae ENMT external ear and nose normal, oropharynx normal Neck trachea midline, no thyromegaly Respiratory normal respiratory effort, lungs clear to auscultation Cardiovascular RRR, no murmur, no edema Gastrointestinal (Abdomen) normal bowel sounds, soft, nontender, no hepatosplenomegaly Skin no rashes, warm and dry Psychiatric A+Ox3, euthymic affect Principal Diagnosis Arthroplasty of right shoulder secondary rotator cuff tear Discharge Exam GENERAL : No acute distress EYES: No icterus, gaze conjugate NOSE: No evidence of epistaxis MOUTH: No lesions or candidiasis NECK: Supple LUNGS: CTA B/L, no wheezes, rales or rhonchi HEART: Regular, rate controlled ABDOMEN: Soft, NT, ND, BS Present EXTREMITIES: No LE edema, pedal pulses intact. Right shoulder remains immobilized with sling in place and secure. Radial pulses intact and equal bilaterally. Patient able to move fingers on both hands. NEURO: A&OX3 Discharge Data Allergies Allergy/AdvReac Type Severity Reaction Status Date / Time No Known Allergies Allergy Unknown Verified 07/20/22 10:41 Consultations 07/28/22 00:47 Consult Hospitalist Stat 07/28/22 07:46 Consult Pulmonology Routine 07/29/22 10:55 Consult Cardiology Routine 07/29/22 13:19 Consult Gastroenterology Routine 07/30/22 17:13 Consult Vascular Surgery Routine Procedures Performed Operation Date: 07/20/22 12:30 Actual Procedures p Right Reverse Total Shoulder Arthroplasty(Right) - Yoel Ding DO Operation Date: 08/04/22 10:45 <No data on this case meets the specified criteria> Ordered Studies 07/09/22 05:00 US - OR guided needle placemen Routine 07/20/22 05:00 US - OR guided needle placemen Routine 07/28/22 08:42 US point of care ultrasound Urgent 07/30/22 17:42 US arterial duplex LE BI Urgent 07/31/22 10:00 US point of care ultrasound Urgent Hospital Course (1) Acute respiratory failure with hypoxia: Attending: David Wilson Impression: This is a 71-year-old male with a history of HFpEF, bilateral pleural effusions, atrial fibrillation, coronary artery disease, peripheral artery disease, hyperlipidemia, anemia, pulmonary hypertension who presented to [facility] for R shoulder replacement on 07/26/22 and subsequently developed an increasing oxygen requirement, which is primarily suspected to be secondary to pulmonary edema Hospitalist Consulted for medical management s/p reverse shoulder w/ increased O2 requirement 2-4L with NO O2 at baseline reported and placed on BiPAP to maintain adequate oxygenation VBG unremarkable CXR w/ evidence CHF/pulm edema/layering effusions w/ dependent consolidation, increased from 07/07 imaging Status post left thoracentesis with Dr. Alvarez with 1650 mL of fluid removed 07/28/2022 Repeat ECHO LV systolic function normal. Grade I diastolic dysfunction. Mild cLVH. RVSP elevated 40-50mmHG. Mild aortic root dilatation Patient is currently saturating well on 2 L/min via nasal cannula at 95%. Held oxygen and patient maintain SaO2 of 92% on room air Continue to titrate supplemental oxygen as tolerated. Patient will be discharged on supplemental oxygen (2) (HFpEF) heart failure with preserved ejection fraction: Acute on chronic Prior ECHO in October w/ normal EF, mild concentric LVH, EF 65-70%. Patient had thoracentesis prior to surgery for 500cc with pulmonology -- transudative fluid 06/3007/07/2022 s/p right thoracentesis for 450 ml of fluid with Shade Cortez PA-C [07/28] s/p left thoracentesis for 1650mL cloudy serous fluid with Dr Alvarez Of note, patient is noncompliant with low-sodium diet. Was eating cheeseburger and bengali fries again on the day of discharge. Already was on low sodium diet, added further fluid restriction and AHA to diet. Encourage compliance at [facility] Educated to avoid excessive salt/fluid retention Continues on Increased dose of Lasix 80mg IV BID + spironolactone 25mg PO BID Aiming net negative 1-1.5L daily, Currently -17.4 liters this admission (3) Atrial flutter, paroxysmal: Tx to PCU for afib/flutter -- converted back, maintained. Prior pAfib seen by Dr Sheffield but opted not for AC at that time. Cards consulted inpatient. Should ideally be on Eliquis BID vs Xarelto when bleeding ensured stable/dc. Continues on tele NSR X the last 48 hours. Transferred to med/surg prior to discharge (4) Postoperative anemia: s/p 1 unit packed RBCs [07/29] 1u PRBC for hgb 7.2 , did get 1 dose of Venofer, remains on PO supplementation - Hgb stable and no evidence of any active GI bleeding Of note, given anemia requiring transfusion GI consulted given prior cirrhosis/esophageal varices on EGD earlier this year w/ Dr Rush/upper GI discomfort --> agreed to continue PPI BID, carafate. No inpatient scope. Plavix resumed and hgb stable on repeat Patient should continue to follow as an outpatient Chronic iron deficiency anemia with baseline around 9-10 Hgb stable at 9.2. However, volume overloaded as above, will monitor. No active bleeding Iron panel w/ low iron/trans % sat -- Venofer x 1, 1u PRBC 07/29 No evidence of any active GI bleeding Remains on daily PO supplementation (5) Bilateral pleural effusion: Status post right thoracentesis 07/27/2022 Status post left thoracentesis 07/28/2022 Check chest x-ray if patient develops further shortness of breath as an outpatient Continue with diuresis (6) CAD (coronary artery disease): CAD/PAD/HLD, paroxysmal afib Catheterization during January 2021 admission with acute CHF -- demonstrated triple-vessel CAD that is currently being managed medically. Follows with Dr Sheffield for hx paroxysmal afib (patient prefer conservative approach no further monitoring/anticoagulation), 2nd degree AV block (had mobitz 1 second degree-AV identified while on BB, but patient back on BB due to CAD), patient declined implantable monitoring in past. Continue ASA 81mg, statin, metoprolol tartrate 25mg BID Cardiology consulted as above given patient flip afib/flutter and transferred to PCU. Consideration for anticoagulation if patient agreeable with Xarelto vs Eliquis as above. Would have CM tom check. Would need ASA discontinued in that event and continue anticoagulation/Plavix Keep K~4, Mag ~2 (additional K supplementation with Lasix) Continued discussions will need to be had regarding anticoagulation with Xarelto vs Eliquis given esophageal varices on EGD earlier this year, risk vs benefit (7) Pulmonary hypertension: History noted. Not appreciated on last TTE in 10/2021 Follows with [facility] pulmonology, consulted while inpatient (8) Status post reverse total replacement of right shoulder: s/p Right Reverse Total Shoulder Arthroplasty(Right) with open biceps tenodesis as a distinct and separate procedure (modifier 59)- Yoel Ding, DO on 07/20 EBL 150cc Pain control/bowel regimen/DVT prophylaxis per primary service Was anticipating discharge 07/27, however see above, developed acute respiratory failure Transfer to [facility] Outpatient follow-up with orthopedics (9) Peripheral arterial disease: [facility]/p LLE angioplasty with stenting in October this year, does have narrowing/marked stenosis distal superficial femoral artery on duplex in March 19 Plavix held for shoulder surgery, resumed as above but now again on hold for anemia but given anemia/need for PRBC placed back on hold, since resumed Vascular consulted -- rec f/u with previous vascular surgeon for amputation as toes w/ demarcation NO PLANNED INTERVENTION (10) Esophageal varices: hx cirrhosis, ?2nd RILEY, no reported etoh use/abuse however did have B12 deficiency noted esophageal varices on EGD earlier this year with Dr rush, consulted given anemia and GI discomfort. Increased PPI to BID in meantime GI recs continuing PPI BID, no changes to current regimen Managed outpatient after discharge (11) Chronic osteomyelitis of hip: Continue Bactrim 800/160 PO mg BID Plan Diet - Low Na, heart healthy, fluid restrict 1800ml Disposition -discharge to [facility] for skilled care Total Time Total Time Spent Total Time Spent (In Minutes): 25 Discharge Plan Discharge Items Patient Disposition: Transfer Longterm [facility] Reason For Visit: Degenerative Joint Disease Right Shoulder Discharge Diagnosis: Right reverse shoulder replacement Activity: Per Instructions section Lifting: Wait until after follow-up appointment Lifting Comment: Lifting per ortho Bathing: Keep incision dry Exercise/Sports: Wait until after follow-up appointment Weightbearing: Full weightbearing Non-emergency contact: Surgeon Call non-emergency contact if: your wound has increased redness and your wound has increased drainage Follow-up/Referrals: Rayo Jordan DO [Primary Care Provider] - Diet: Regular Addtl Attending Provider Instructions: Activity and Therapy Recommendations: * If you are using [facility] then therapy will be provided at your home until they feel you have accomplished all of your goals. * If you are using [facility] then Physical Therapy will be provided until they feel you are ready to start Outpatient Physical Therapy. * If you are not using home therapy then Outpatient Physical Therapy should start about 3-5 days from your day of surgery. Therapy will last about 8-12 weeks * Wear your sling for 3 weeks, unless otherwise instructed. You may remove your sling to shower and to dress, but otherwise, you should be in your sling at all times, including while sleeping * The shoulder replacement is very stable and you can use your hand while in the sling * You were shown a series of exercises in the hospital. Do these exercises daily including the exercises you were shown in physical therapy. Medications: * Narcotic You will likely be sent home from the hospital with a prescription for the narcotic pain medication that worked best throughout your stay. * Other medications may be prescribed for specific circumstances. If you have any questions, please call the office at . * Resume previous home medications unless otherwise instructed Things To Watch For: * Drainage from the incision site that occurs more than one week after your surgery. * Increased redness at the incision site. * Fever above 102 degrees Fahrenheit. * Unusual chest pain or shortness of breath. * Call [facility] at with any of the above problems Follow-Up Visit: Follow-up with Dr. Ding 6 weeks after your day of surgery. Please call the office to set up an appointment for a time that works for you If you have any questions call More detailed instructions as well as Frequently Asked Questions were provided in a folder by our office when you signed-up for surgery. Please review these instructions when you get home. If you have any further questions or concerns, please feel free to call the office at [phone] Addtl [employer] Provider Instructions: You should continue to follow up with the [facility] for your toes. Continue to clean with betadine daily. You should also follow up with the [facility] in [place] for continued surgical evaluation. You were seen by the [facility] while you were in the hospital. You will be discharged on 80mg PO Lasix (Furosemide) but should follow [facility] with your [facility] doctor and [facility] within the next week to have labs followed and lasix dose adjusted. Continue supplemental oxygen at 3 L/min via nasal cannula. Follow up with the life manager at the [facility] for management Continue to abstane from tobacco products. Pending Studies at Discharge: No Stand-Alone Forms: My [facility] Skilled Items Patient informed of condition?: Yes DNR: No Discharge Level of Care: Skilled Communicable Disease: No Discharge Prognosis: Improving Lines: None Urinary Catheter: No Medications and DC Order Prescriptions: New clopidogrel 75 mg Tablet 75 mg PO QAM Qty: 30 0RF spironolactone 25 mg Tablet 25 mg PO BID17 Qty: 60 0RF Continued terbinafine HCl 250 mg tablet 250 mg PO DAILY Qty: 30 0RF cholecalciferol (vitamin D3) 50 mcg (2,000 unit) capsule 50 mcg PO QAM lidocaine [Lidoderm] 5 % adhesive patch,medicated 1 patch topical DAILY PRN (Reason: Pain) Rx Instructions: leave on most painful area for up to 12 hrs methocarbamol 500 mg tablet 500 mg PO TID PRN (Reason: MUSCLE RELAXANT) sennosides 8.6 mg tablet 8.6 mg PO DAILY potassium chloride 20 mEq/15 mL liquid See Rx Instructions .ROUTE .COMPLEX Rx Instructions: one tablespoon full PO daily for low potassium - must dilute in 4 oz of water; glucosamine-chondroitin [Osteo Bi-Flex] 250-200 mg tablet 1 tab PO BID Rx Instructions: give after food/meal povidone-iodine 10 % solution 1 applic topical DAILY Ensure Plus 0.05-1.5 gram-kcal/mL liquid 1 ea PO TID Rx Instructions: PO TID; (DME) gauze bandage [Curad Gauze Pad] 4 X 4 " bandage See Rx Instructions .Route Rx Instructions: As directed (DME) HEEL LIFTS Misc See Rx Instructions .ROUTE .MEDSUPPLY Qty: 1 0RF Rx Instructions: As directed. 3in lift for left shoe gabapentin 400 mg capsule 400 mg PO TID Qty: 270 3RF tamsulosin [Flomax] 0.4 mg Capsule 0.4 mg PO QPM bupropion HCl 100 mg tablet 200 mg PO BID pantoprazole 40 mg tablet,delayed release (DR/EC) 40 mg PO QAM Rx Instructions: 40 mg PO daily 1/2 hour prior to breakfast; multivitamin Tablet 1 tab PO QAM trazodone 150 mg Tablet 150 mg PO HS omega 7-tor-dpc-fish oil [Fish Oil] 1,200 (144-216) mg Capsule 1 cap PO QAM metoprolol tartrate 50 mg Tablet 25 mg PO BID atorvastatin 40 mg tablet 40 mg PO QAM fluticasone furoate-vilanterol [Breo Ellipta] 100-25 mcg/dose blister with device 1 inh inhalation BID ferrous sulfate 325 mg (65 mg iron) Tablet 325 mg PO QAM latanoprost 0.005 % Drops 1 drp ophthalmic (eye) HS Qty: 1 0RF prednisolone acetate 1 % Drops,Suspension 1 drp ophthalmic (eye) TID Qty: 1 0RF brimonidine 0.2 % Drops 1 drp ophthalmic (eye) BID Qty: 1 0RF dorzolamide-timolol 22.3-6.8 mg/mL Drops 1 drp ophthalmic (eye) TID Qty: 1 0RF sulfamethoxazole-trimethoprim [Bactrim DS] 800-160 mg Tablet 1 tab PO Q12H Qty: 0 0RF Rx Instructions: HX MRSA; place on hold while receiving doxycycline albuterol sulfate 90 mcg/actuation Hfa Aerosol Inhaler 2 puff INHALATION BID PRN (Reason: Shortness Of Breath Or Wheezing) hydrocodone-acetaminophen 5-325 mg Tablet 1 tab PO TID PRN (Reason: Pain) aspirin 81 mg Tablet 81 mg PO DAILY Changed oxycodone-acetaminophen [Percocet] 5-325 mg tablet 1 tab PO Q6H PRN (Reason: pain) Qty: 60 0RF Rx Instructions: "fill date" 07-17-22. ok to fill today. furosemide [Lasix] 40 mg tablet 80 mg PO BID Qty: 120 0RF Discontinued metolazone 5 mg tablet 5 mg PO DAILY PRN (Reason: edema) Qty: 30 5RF Rx Instructions: take 30min prior to AM lasix dose. Discharge Orders: Discharge Order (Routine); Ordered 08/09/22 Ordered By: Shade Cortez Admission Data Admit Date/Time: 07/26/22 07:01 Attending Provider: Doron Wilson Admit Provider: Yoel Ding Primary Care Provider: Rayo Jordan Other Providers: [facility] ; [facility] ; Doron Wilson ; Jennifer Liang ; Mark Anthony Calloway ; Woody Bolton ; Quinten Rush ; Sabas Ochoa Other Interventions: Discharge Summary Assessment (RN) Last Done: 08/09/22 11:15 Coding Level of Care Code D/C DAY MANAGEMENT <30 MINS Diagnoses Acute respiratory failure with hypoxia J96.01 (HFpEF) heart failure with preserved ejection fraction I50.30 Atrial flutter, paroxysmal I48.92 Postoperative anemia D64.9 Bilateral pleural effusion J90 CAD (coronary artery disease) I25.10 Pulmonary hypertension I27.20 Status post reverse total replacement of right shoulder Z96.611 Peripheral arterial disease I73.9 Esophageal varices I85.00 Chronic osteomyelitis of hip M86.68 Time Spent (min) 25
[2022-08-10 08:01] LABS: Anisocytosis Present; Polychromasia 1+
== END 2022-08-09 12:36 | DRG 483 ==
LOC: 3E 10:21 → ASU 10:21 → SUATTDRO 07-26 07:01 → 2S 07-28 20:27 → 3N 08-09 00:16